=== PATIENT | male | born 1960 | race Caucasian/White ===

== ENCOUNTER 2021-06-29 18:09 | Inpatient (IN) | payer SELFPAY ==
[~2021-06-29] VITALS: Ht 180.3 cm; Wt 77.2 kg
[2021-06-29 18:40] LABS: BASE EXCESS ABG -2 mmol/L (-3-3); HCO3 ABG 20 mmol/L (21-28); PCO2 ABG 30 mmHg (35-46); PO2 ABG 61 mmHg (65-108); SAT O2 ABG 91 % (92-99)
[2021-06-29 18:46] LABS: FIO2 ABG 24%/ 1L NC
--- NOTE | 2021-06-29 18:54 | PHYS DOC ---
Past Medical History Additional Past Medical Histor: DENIES Past Surgical History: No Surgical History Smoking Status: Never Smoker Alcohol Use: None Drug Use: None General Adult HPI: HPI: Patient is a 60-year-old male that presents today via [facility] with decreased level of consciousness. Most of the history was obtained via EMS and patient's friend Reese [phone], who states that patient has been sick since about June 22 per Reese, he states that they both had cough cold headache sinus type pain. Per Reese's report patient is okay during the day and very alert and orientated and at night he has a decreased alertness. Patient is unable to help with exam when asked questions he does deny any past medical history, surgeries, or any other health conditions. Reese who is his roommate collaborates any information gotten from the patient. Accu-Chek per EMS was 250, room air sat in the room was 88 to 90%. Review of Systems: Review of Systems: Constitutional: Denies fever or chills. [] Eyes: Denies change in visual acuity. [] HENT: Denies nasal congestion or sore throat. [] Respiratory: Denies cough or shortness of breath. [] Cardiovascular: Denies chest pain or edema. [] GI: Denies abdominal pain, nausea, vomiting, bloody stools or diarrhea. [] : Denies dysuria. [] Musculoskeletal: Denies back pain or joint pain. [] Integument: Denies rash. [] Neurologic: Decreased LOC Endocrine: Denies polyuria or polydipsia. [] Lymphatic: Denies swollen glands. [] Psychiatric: Denies depression or anxiety. [] Heart Score: C/O Chest Pain: N/A Risk Factors: Risk Factors: DM, Current or recent (<one month) smoker, HTN, HLP, family history of CAD, obesity. Risk Scores: Score 0 - 3: 2.5% MACE over next 6 weeks - Discharge Home Score 4 - 6: 20.3% MACE over next 6 weeks - Admit for Clinical Observation Score 7 - 10: 72.7% MACE over next 6 weeks - Early Invasive Strategies Allergies: Allergies: nkda Physical Exam: PE: Constitutional: Ill-appearing male in moderate distress HENT: Normocephalic, atraumatic, bilateral external ears normal, oropharynx moist, no oral exudates, nose normal. [] Eyes: PERRLA, EOMI, conjunctiva normal, no discharge. [] Neck: Normal range of motion, no tenderness, supple, no stridor. [] Cardiovascular:Heart rate regular rhythm, no murmur [] Lungs & Thorax: Bilateral breath sounds diminished, tachypnea noted increased work of breathing noted Abdomen: Bowel sounds normal, soft, no tenderness, no masses, no pulsatile masses. [] Skin: Warm, dry, pale, no erythema, no rash. [] Back: No tenderness, no CVA tenderness. [] Extremities: No tenderness, no cyanosis, no clubbing, ROM intact, no edema. [] Neurologic: Alert and oriented X 2, normal motor function, normal sensory function, no focal deficits noted. [] Psychologic: Affect normal, judgement normal, mood normal. [] Current Patient Data: Labs: Laboratory Tests Test 06/29/21 18:29 06/29/21 18:39 06/29/21 18:56 06/29/21 19:11 SARS-CoV-2 Antigen (Rapid) Negative O2 Saturation 91 % Arterial Blood pH 7.45 Arterial Blood pCO2 at Patient Temp 30 mmHg Arterial Blood pO2 at Patient Temp 61 mmHg Arterial Blood HCO3 20 mmol/L Arterial Blood Base Excess -2 mmol/L FiO2 24%/ 1l nc Influenza Type A Antigen Negative Influenza Type B Antigen Negative White Blood Count 18.4 x10^3/uL Red Blood Count 5.31 x10^6/uL Hemoglobin 16.4 g/dL Hematocrit 48.1 % Mean Corpuscular Volume 91 fL Mean Corpuscular Hemoglobin 31 pg Mean Corpuscular Hemoglobin Concent 34 g/dL Red Cell Distribution Width 13.2 % Platelet Count 298 x10^3/uL Neutrophils (%) (Auto) 91 % Lymphocytes (%) (Auto) 3 % Monocytes (%) (Auto) 5 % Eosinophils (%) (Auto) 0 % Basophils (%) (Auto) 1 % Neutrophils # (Auto) 16.7 x10^3/uL Lymphocytes # (Auto) 0.6 x10^3/uL Monocytes # (Auto) 1.0 x10^3/uL Eosinophils # (Auto) 0.0 x10^3/uL Basophils # (Auto) 0.1 x10^3/uL D-Dimer (Puja) 8.66 ug/mlFEU Sodium Level 136 mmol/L Potassium Level 5.1 mmol/L Chloride Level 103 mmol/L Carbon Dioxide Level 21 mmol/L Anion Gap 12 Blood Urea Nitrogen 78 mg/dL Creatinine 1.9 mg/dL Estimated GFR (Cockcroft-Gault) 36.2 BUN/Creatinine Ratio 41 Glucose Level 192 mg/dL Lactic Acid Level 2.6 mmol/L Calcium Level 7.7 mg/dL Total Bilirubin 0.8 mg/dL Aspartate Amino Transf (AST/SGOT) 712 U/L Alanine Aminotransferase (ALT/SGPT) 398 U/L Alkaline Phosphatase 67 U/L Troponin I High Sensitivity 13 ng/L Total Protein 7.6 g/dL Albumin 2.7 g/dL Albumin/Globulin Ratio 0.6 Current Medications Medications (Trade) Dose Ordered Sig/Vicente Route PRN Reason Start Time Stop Time Status Last Admin Dose Admin Sodium Chloride 1,000 ml @ 999 mls/hr 1X ONCE IV 06/29/21 19:00 06/29/21 20:00 DC 06/29/21 19:10 Dexamethasone Sodium Phosphate (Decadron) 10 mg 1X ONCE IV 06/29/21 20:00 06/29/21 20:05 DC Sodium Chloride 1,000 ml @ 999 mls/hr 1X ONCE IV 06/29/21 20:00 06/29/21 21:00 Ceftriaxone Sodium (Rocephin) 1 gm 1X ONCE IVP 06/29/21 20:00 06/29/21 20:05 DC Azithromycin 250 ml @ 250 mls/hr 1X ONCE IV 06/29/21 20:00 06/29/21 20:59 Vital Signs: Vital Signs Date Time Temp Pulse Resp B/P (MAP) Pulse Ox O2 Delivery O2 Flow Rate FiO2 06/29/21 18:56 110 29 133/83 (100) 92 Nasal Cannula 2.0 06/29/21 18:53 108 30 127/84 (98) 92 Nasal Cannula 2.0 06/29/21 18:26 110 32 140/77 (98) 94 Nasal Cannula 2.0 06/29/21 18:15 112 32 141/81 (101) 96 Nasal Cannula 5.0 06/29/21 18:09 99.1 112 32 141/81 (101) 92 Nasal Cannula 2.0 99.1 EKG: EKG: EKG done at [address] Rivas at 1827 sinus tachycardia rate of 113 no STEMI NE interval of 100 and TT milliseconds with a QT interval of 438 ms [] Radiology/Procedures: Radiology/Procedures: REASON: DECREASE O2 SATS PROCEDURE: CHEST AP ONLY XR CHEST 1V History: Reason: DECREASE O2 SATS / Spl. Instructions: / History: Comparison: None. Findings: Moderate multifocal ill-defined consolidations bilaterally. No pleural effusion. Low lung volumes. No pneumothorax. Normal heart size. Impression: 1. Moderate multifocal ill-defined opacities bilaterally, can be seen with concerning for pneumonia including viral pneumonia. Electronically signed by: Irvin Clark DO (06/29/2021 8:03 PM) [facility] REASON: DECREASE loc PROCEDURE: CT HEAD WO CONTRAST Exam: CT head INDICATION: Decreased level of consciousness TECHNIQUE: Sequential axial images through the head were obtained without the administration of IV contrast. Exposure: One or more of the following in the visualized dose reduction techniques were utilized for this examination: 1. Automated exposure control 2. Adjustment of the MA and/or KV according to patient size 3. Use of iterative of reconstructive technique Comparisons: None FINDINGS: No focal parenchymal lesion or hemorrhage is identified. There is no midline shift or sulcal effacement. No acute vascular territory infarction is identified. Ceballos-white distinction is preserved. The ventricular system is within normal limits without compression hydrocephalus. The basal cisterns are well maintained. The visualized portions of the paranasal sinuses and mastoid air cells are well- pneumatized. No acute fractures. IMPRESSION: No acute intracranial abnormality. Electronically signed by: Deborah Broderick MD (06/29/2021 8:18 PM) [facility] Course & Med Decision Making: Course & Med Decision Making Laboratory Tests Test 06/29/21 18:29 06/29/21 18:39 06/29/21 18:56 06/29/21 19:11 SARS-CoV-2 Antigen (Rapid) Negative O2 Saturation 91 % Arterial Blood pH 7.45 Arterial Blood pCO2 at Patient Temp 30 mmHg Arterial Blood pO2 at Patient Temp 61 mmHg Arterial Blood HCO3 20 mmol/L Arterial Blood Base Excess -2 mmol/L FiO2 24%/ 1l nc Influenza Type A Antigen Negative Influenza Type B Antigen Negative White Blood Count 18.4 x10^3/uL Red Blood Count 5.31 x10^6/uL Hemoglobin 16.4 g/dL Hematocrit 48.1 % Mean Corpuscular Volume 91 fL Mean Corpuscular Hemoglobin 31 pg Mean Corpuscular Hemoglobin Concent 34 g/dL Red Cell Distribution Width 13.2 % Platelet Count 298 x10^3/uL Neutrophils (%) (Auto) 91 % Lymphocytes (%) (Auto) 3 % Monocytes (%) (Auto) 5 % Eosinophils (%) (Auto) 0 % Basophils (%) (Auto) 1 % Neutrophils # (Auto) 16.7 x10^3/uL Lymphocytes # (Auto) 0.6 x10^3/uL Monocytes # (Auto) 1.0 x10^3/uL Eosinophils # (Auto) 0.0 x10^3/uL Basophils # (Auto) 0.1 x10^3/uL D-Dimer (Puja) 8.66 ug/mlFEU Sodium Level 136 mmol/L Potassium Level 5.1 mmol/L Chloride Level 103 mmol/L Carbon Dioxide Level 21 mmol/L Anion Gap 12 Blood Urea Nitrogen 78 mg/dL Creatinine 1.9 mg/dL Estimated GFR (Cockcroft-Gault) 36.2 BUN/Creatinine Ratio 41 Glucose Level 192 mg/dL Lactic Acid Level 2.6 mmol/L Calcium Level 7.7 mg/dL Total Bilirubin 0.8 mg/dL Aspartate Amino Transf (AST/SGOT) 712 U/L Alanine Aminotransferase (ALT/SGPT) 398 U/L Alkaline Phosphatase 67 U/L Troponin I High Sensitivity 13 ng/L Total Protein 7.6 g/dL Albumin 2.7 g/dL Albumin/Globulin Ratio 0.6 Current Medications Medications (Trade) Dose Ordered Sig/Vicente Route PRN Reason Start Time Stop Time Status Last Admin Dose Admin Sodium Chloride 1,000 ml @ 999 mls/hr 1X ONCE IV 06/29/21 19:00 06/29/21 20:00 DC 06/29/21 19:10 Dexamethasone Sodium Phosphate (Decadron) 10 mg 1X ONCE IV 06/29/21 20:00 06/29/21 20:05 DC Sodium Chloride 1,000 ml @ 999 mls/hr 1X ONCE IV 06/29/21 20:00 06/29/21 21:00 Ceftriaxone Sodium (Rocephin) 1 gm 1X ONCE IVP 06/29/21 20:00 06/29/21 20:05 DC Azithromycin 250 ml @ 250 mls/hr 1X ONCE IV 06/29/21 20:00 06/29/21 20:59 Pertinent Labs and Imaging studies reviewed. (See chart for details) [address] Thornton regarding admitting patient he is agreeable to admission, will continue with IV boluses of fluids down here, repeat labs in the a.m., IV fluids maintenance at 75 an hour of normal saline, and venous Doppler bilaterally to rule out DVTs, will also repeat troponin III hours from the last troponin. Dragon Disclaimer: Dragon Disclaimer: This electronic medical record was generated, in whole or in part, using a voice recognition dictation system. Departure Departure Impression: Primary Impression: Mental status alteration Qualified Codes: R41.82 - Altered mental status, unspecified Additional Impressions: Pneumonia Qualified Codes: J18.9 - Pneumonia, unspecified organism Dehydration Disposition: ADMITTED INPATIENT Admitting Physician: REX Condition: GUARDED Date and Time of Reassessment Date: Jun 29, 2021 Time: 20:29 Fluid Challenge Is the fluid challenge complet: No IBW Target Volume Used: Yes BMI > 30: Yes Blood Culture TIme: 19:11 Time Antibiotics Given: 20:30 Vital Signs Vital Signs: Vital Signs Date Time Temp Pulse Resp B/P (MAP) Pulse Ox O2 Delivery O2 Flow Rate FiO2 06/29/21 18:56 110 29 133/83 (100) 92 Nasal Cannula 2.0 06/29/21 18:09 99.1 99.1 Temperature Source: Axillary Respirations Respiratory Effort: Labored Cardiovascular Pulse Rhythm: Regular Heart: Nml S1, S2, no murmurs Lung Sounds Breath Sounds: Diminished Capillary Refil Capillary Refill: Rt Hand > 3 seconds Peripheral Pulse Pulse Location: Monitor Pulse Strength: Weak (1+) Pulse Assessment Method: Monitor Integumentary Skin Moisture: Dry RANDI DANIEL APRN Jun 29, 2021 18:54
[2021-06-29] MEDS ORDERED: IV NORMAL SALINE 1000ML BAG 1,000 ML IV ONE ×2 (19:00→20:00)
--- NOTE | 2021-06-29 19:09 | EKG ---
[facility] [address] [place] [address] Test Date: 2021-06-29 Test Time: 18:22:57 Pat Name: PRINCESS MILLER Department: Room: Gender: Trial Paralegal: : 1960 Requested By: RANDI DAINEL Order Number: [id number] Reading MD: Champ Argueta Measurements Intervals Bay Rate: 113 P: 41 RI: 118 QRS: -25 QRSD: 76 T: 58 QT: 320 QTc: 438 Interpretive Statements SINUS TACHYCARDIA LEFTWARD AXIS LEFT VENTRICULAR HYPERTROPHY Electronically Signed On 06-30-2021 14:29:22 COMMUNITY DEVELOPMENT SPECIALIST by Champ Argueta
[2021-06-29 19:34] LABS: CALCIUM 7.7 mg/dL (8.5-10.1); CREATININE 1.9 mg/dL (0.7-1.3); GFR 36.2; POTASSIUM 5.1 mmol/L (3.5-5.1)
[2021-06-29 19:39] LABS: INFLUENZA A PATIENT NEGATIVE (NEGATIVE); INFLUENZA B PATIENT NEGATIVE (NEGATIVE)
[2021-06-29 19:40] LABS: ALBUMIN 2.7 g/dL (3.4-5.0); ALBUMIN/GLOBULIN RATIO 0.6 (1.0-1.7); TOTAL BILIRUBIN 0.8 mg/dL (0.2-1.0); TOTAL PROTEIN 7.6 g/dL (6.4-8.2)
[2021-06-29 19:52] LABS: BASO # 0.1 x10^3/uL (0.0-0.2); BASO % 1 % (0-3); EOS % 0 % (0-3); HEMATOCRIT 48.1 % (39.0-53.0); HEMOGLOBIN 16.4 g/dL (13.0-17.5); LYMPH # 0.6 x10^3/uL (1.0-4.8); LYMPH % 3 % (24-48); MEAN CORPUSCULAR HEMOGLOBIN 31 pg (25-35); MEAN CORPUSCULAR HGB CONC 34 g/dL (31-37); MEAN CORPUSCULAR VOLUME 91 fL (79-100); MONO % 5 % (0-9); NEUT # 16.7 x10^3/uL (1.8-7.7); NEUT % 91 % (31-73); PLATELET COUNT 298 x10^3/uL (140-400); RED BLOOD COUNT 5.31 x10^6/uL (4.30-5.70); RED CELL DISTRIBUTION WIDTH 13.2 % (11.5-14.5); WHITE BLOOD COUNT 18.4 x10^3/uL (4.0-11.0)
[2021-06-29] MEDS ORDERED: AZITHRMYCN 500MG IVPB FOR OMNI 250 ML IV ONE (20:00)
[2021-06-29] MEDS ORDERED: DEXAMETHASONE SOD PHOS 20 MG/5 ML VIAL. IV ONE (20:00)
[2021-06-29] MEDS ORDERED: cefTRIAXone IV Push 1 GM VIAL. IVP ONE (20:00)
--- NOTE | 2021-06-29 20:05 | RAD ---
XR CHEST 1V History: Reason: DECREASE O2 SATS / Spl. Instructions: / History: Comparison: None. Findings: Moderate multifocal ill-defined consolidations bilaterally. No pleural effusion. Low lung volumes. No pneumothorax. Normal heart size. Impression: 1. Moderate multifocal ill-defined opacities bilaterally, can be seen with concerning for pneumonia including viral pneumonia. Electronically signed by: Irvin Clark DO (06/29/2021 8:03 PM) [facility]
--- NOTE | 2021-06-29 20:21 | RAD ---
Exam: CT head INDICATION: Decreased level of consciousness TECHNIQUE: Sequential axial images through the head were obtained without the administration of IV co ntrast. Exposure: One or more of the following in the visualized dose reduction techniques were utilized for this examination: 1. Automated exposure control 2. Adjustment of the MA and/or KV according to patient size 3. Use of iterative of reconstructive technique Comparisons: None FINDINGS: No focal parenchymal lesion or hemorrhage is identified. There is no midline shift or sulcal effaceme nt. No acute vascular territory infarction is identified. Ceballos-white distinction is preserved. The ventricular system is within normal limits without compression hydrocephalus. The basal cisterns are well maintained. The visualized portions of the paranasal sinuses and mastoid air cells are well-pneumatized. No acute fractures. IMPRESSION: No acute intracranial abnormality. Electronically signed by: Deborah Broderick MD (06/29/2021 8:18 PM) [facility]
[2021-06-29] MEDS: IV NORMAL SALINE 1000ML BAG 1,000 ML IV SCH (20:45)
--- NOTE | 2021-06-29 22:09 | RAD ---
STUDY: US DPLX VENOUS EXTREMITY LOWER RT INDICATION: Elevated d-dimer. DVT. TECHNIQUE: Color-flow and pulsed wave duplex ultrasound with compression of venous structures of the right lower extremity. COMPARISON: None Available FINDINGS: Duplex ultrasound with compression of the deep venous structures of the right lower extremity from th e common femoral vein through the popliteal vein is negative for DVT. The posterior tibial and peroneal veins are segmentally visualized and patent where seen. Normal veno us waveforms and augmentation are noted throughout. IMPRESSION: No deep venous thrombosis identified throughout the right lower extremity. Electronically signed by: DORINA MAC MD (06/29/2021 10:07 PM) [facility]
[2021-06-30] VITALS (7 sets, daily range): BP systolic 127–147; BP diastolic 67–82
--- NOTE | 2021-06-30 00:20 | NUR ---
The patient, PRINCESS MILLER, 60 y/o, M admitted by SIMONE ARGUELLO MD, was given written information regarding hospital policies, unit procedures and contact persons. pt has wounds on left second toe, buttucks, tip of penis and shaft of penis. Pt is incontinet. ocasionally will nod his head yes or no. He also doesnt acknowledge most questions. but his eyes are open. Valuables were checked and there isnt any valuables. pt didnt answer his contact used Don's info. until pt says otherwise. lcrn
[2021-06-30 05:25] LABS: BASO % 0 % (0-3); EOS % 0 % (0-3); HEMATOCRIT 43.5 % (39.0-53.0); HEMOGLOBIN 14.5 g/dL (13.0-17.5); LYMPH # 0.9 x10^3/uL (1.0-4.8); LYMPH % 7 % (24-48); MEAN CORPUSCULAR HEMOGLOBIN 30 pg (25-35); MEAN CORPUSCULAR HGB CONC 33 g/dL (31-37); MEAN CORPUSCULAR VOLUME 91 fL (79-100); MONO # 0.3 x10^3/uL (0.0-1.1); MONO % 2 % (0-9); NEUT # 12.9 x10^3/uL (1.8-7.7); NEUT % 91 % (31-73); PLATELET COUNT 249 x10^3/uL (140-400); RED BLOOD COUNT 4.77 x10^6/uL (4.30-5.70); RED CELL DISTRIBUTION WIDTH 12.9 % (11.5-14.5); WHITE BLOOD COUNT 14.1 x10^3/uL (4.0-11.0)
--- NOTE | 2021-06-30 05:33 | RAD ---
Examination: LEFT LOWER EXTREMITY - UNILATERAL VENOUS DOPPLER Technique: Ultrasound evaluation of the left lower extremity was performed from the groin to the uppe r calf with churchill scale, spectral and color doppler evaluation. Indication: Leg swelling Comparison: None Findings: There is normal venous flow and compressibility of left common femoral vein, femoral vein, popliteal vein, and visualized proximal calf veins. Impression: No evidence for deep vein thrombosis of left lower extremity from the level of the calf v eins to the groins. Electronically signed by: Enrique Walker MD (06/30/2021 5:31 AM) [facility]
[2021-06-30 05:50] LABS: CALCIUM 7.3 mg/dL (8.5-10.1); CREATININE 1.3 mg/dL (0.7-1.3); GFR 56.1; POTASSIUM 5.1 mmol/L (3.5-5.1)
[2021-06-30 10:13] LABS: % BANDS 1 % (0-9); % LYMPHS 4 % (24-48); % MONOS 1 % (0-10); % SEGS 94 % (35-66); PLT ESTIMATE ADEQUATE (ADEQUATE)
--- NOTE | 2021-06-30 12:31 | NUR ---
SS following for discharge planning. SS reviewed pt chart and discussed with pt RN. Pt is from home and is currently requiring oxygen at four liters nasal canula. COVID19 positive. [address] ordered. Self pay. Med Assist following. SS will continue to follow for discharge planning.
[2021-06-30] MEDS: IV NORMAL SALINE 1000ML BAG 1,000 ML IV SCH (12:32)
--- NOTE | 2021-06-30 15:14 | PDOC1 ---
History and Physical Date of Service: DOS: DATE: 06/30/21 TIME: 15:07 Chief Complaint: Chief Complain: Altered mental status. History of Present Illness: HPI: 60-year-old male that presents today via [facility] with decreased level of consciousness. Most of the history was obtained via EMS and patient's friend Reese [phone], who states that patient has been sick since about June 22 per Reese, he states that they both had cough cold headache sinus type pain. Per Reese's report patient is okay during the day and very alert and orientated and at night he has a decreased alertness. Patient is unable to help with exam when asked questions he does deny any past medical history, surgeries, or any other health conditions. Reese who is his roommate collaborates any i nformation gotten from the patient. Accu-Chek per EMS was 250, room air sat in the room was 88 to 90%. EKG at time of admission: sinus tachycardia rate of 113 no STEMI NE interval of 100 and TT milliseconds with a QT interval of 438 ms Past Medical/Surgical History: PMH/PSH: Additional Past Medical Histor: DENIES Past Surgical History: No Surgical History Allergies: Allergies: Coded Allergies: Unable to Assess (Unverified , 06/29/21) PATIENT UNRESPONSIVE Family History: Family History: Reviewed with no relevant findings in the chart Social History: Social History: Smoking Status: Never Smoker Alcohol Use: None Drug Use: None Current Medications: Current Medications Current Medications Sodium Chloride 1,000 ml @ 999 mls/hr 1X ONCE IV Last administered on 06/29/21at 19:10; Start 06/29/21 at 19:00; Stop 06/29/21 at 20:00; Status DC Dexamethasone Sodium Phosphate (Decadron) 10 mg 1X ONCE IV Last administered on 06/29/21at 20:30; Start 06/29/21 at 20:00; Stop 06/29/21 at 20:05; Status DC Sodium Chloride 1,000 ml @ 999 mls/hr 1X ONCE IV Last administered on 06/29/21at 20:30; Start 06/29/21 at 20:00; Stop 06/29/21 at 21:00; Status DC Ceftriaxone Sodium (Rocephin) 1 gm 1X ONCE IVP Last administered on 06/29/21at 20:29; Start 06/29/21 at 20:00; Stop 06/29/21 at 20:05; Status DC Azithromycin 250 ml @ 250 mls/hr 1X ONCE IV Last administered on 06/29/21at 20:00; Start 06/29/21 at 20:00; Stop 06/29/21 at 20:59; Status DC Sodium Chloride 1,000 ml @ 75 mls/hr [id number] IV Last administered on 06/30/21at 12:32; Start 06/29/21 at 20:45; Stop 06/30/21 at 20:44 Info (FLU VACCINE SCREEN per RX) 0.5 each 1X ONCE [facility] ; Start 07/01/21 at 09:00; Stop 07/01/21 at 09:01 Active Scripts Active No Active Prescriptions or Reported Medications ROS: Review of Systems Review of System Limited due to altered mental status Physical Exam: Vital Signs: Vital Signs Date Time Temp Pulse Resp B/P (MAP) Pulse Ox O2 Delivery O2 Flow Rate FiO2 06/30/21 11:30 98.3 79 25 136/79 (98) 94 Nasal Cannula 4.0 98.3 Physcial Exam: General: Well developed, well nourished, no acute distress, well appearing HEENT: Pupils equally round and reactive to light, EOMI, no discharge, normal conjunctiva Neck: Supple, no nuchal rigidity, no JVD, trachea midline, no tenderness Cardiac: RRR, no murmurs, no gallops, no rubs Chest/Lungs: CTAB, no wheeze, no rhonchi, no crackles Abdomen: soft, non-distended, no guarding, no peritoneal signs, non-tender Back: No tenderness Extremities: no edema, pulses intact, non-tender,capillary refill <3 sec bilateral upper and lower extremities, Neuro: Alert and oriented x 4, no focal deficits, normal speech Labs: Labs: Laboratory Tests Test 06/29/21 18:29 06/29/21 18:39 06/29/21 18:56 06/29/21 19:11 SARS-CoV-2 Antigen (Rapid) Negative (NEGATIVE) O2 Saturation 91 % (92-99) Arterial Blood pH 7.45 (7.35-7.45) Arterial Blood pCO2 at Patient Temp 30 mmHg (35-46) Arterial Blood pO2 at Patient Temp 61 mmHg (65-108) Arterial Blood HCO3 20 mmol/L (21-28) Arterial Blood Base Excess -2 mmol/L (-3-3) FiO2 24%/ 1l nc Influenza Type A Antigen Negative (NEGATIVE) Influenza Type B Antigen Negative (NEGATIVE) SARS-CoV-2 RNA (ABDIEL) Positive (Negative) White Blood Count 18.4 x10^3/uL (4.0-11.0) Red Blood Count 5.31 x10^6/uL (4.30-5.70) Hemoglobin 16.4 g/dL (13.0-17.5) Hematocrit 48.1 % (39.0-53.0) Mean Corpuscular Volume 91 fL (79-100) Mean Corpuscular Hemoglobin 31 pg (25-35) Mean Corpuscular Hemoglobin Concent 34 g/dL (31-37) Red Cell Distribution Width 13.2 % (11.5-14.5) Platelet Count 298 x10^3/uL (140-400) Neutrophils (%) (Auto) 91 % (31-73) Lymphocytes (%) (Auto) 3 % (24-48) Monocytes (%) (Auto) 5 % (0-9) Eosinophils (%) (Auto) 0 % (0-3) Basophils (%) (Auto) 1 % (0-3) Neutrophils # (Auto) 16.7 x10^3/uL (1.8-7.7) Lymphocytes # (Auto) 0.6 x10^3/uL (1.0-4.8) Monocytes # (Auto) 1.0 x10^3/uL (0.0-1.1) Eosinophils # (Auto) 0.0 x10^3/uL (0.0-0.7) Basophils # (Auto) 0.1 x10^3/uL (0.0-0.2) D-Dimer (Puja) 8.66 ug/mlFEU (0.00-0.50) Sodium Level 136 mmol/L (136-145) Potassium Level 5.1 mmol/L (3.5-5.1) Chloride Level 103 mmol/L (98-107) Carbon Dioxide Level 21 mmol/L (21-32) Anion Gap 12 (6-14) Blood Urea Nitrogen 78 mg/dL (8-26) Creatinine 1.9 mg/dL (0.7-1.3) Estimated GFR (Cockcroft-Gault) 36.2 BUN/Creatinine Ratio 41 (6-20) Glucose Level 192 mg/dL (70-99) Lactic Acid Level 2.6 mmol/L (0.4-2.0) Calcium Level 7.7 mg/dL (8.5-10.1) Total Bilirubin 0.8 mg/dL (0.2-1.0) Aspartate Amino Transf (AST/SGOT) 712 U/L (15-37) Alanine Aminotransferase (ALT/SGPT) 398 U/L (16-63) Alkaline Phosphatase 67 U/L (46-116) Troponin I High Sensitivity 13 ng/L (4-75) Total Protein 7.6 g/dL (6.4-8.2) Albumin 2.7 g/dL (3.4-5.0) Albumin/Globulin Ratio 0.6 (1.0-1.7) Test 06/30/21 04:30 White Blood Count 14.1 x10^3/uL (4.0-11.0) Red Blood Count 4.77 x10^6/uL (4.30-5.70) Hemoglobin 14.5 g/dL (13.0-17.5) Hematocrit 43.5 % (39.0-53.0) Mean Corpuscular Volume 91 fL (79-100) Mean Corpuscular Hemoglobin 30 pg (25-35) Mean Corpuscular Hemoglobin Concent 33 g/dL (31-37) Red Cell Distribution Width 12.9 % (11.5-14.5) Platelet Count 249 x10^3/uL (140-400) Neutrophils (%) (Auto) 91 % (31-73) Lymphocytes (%) (Auto) 7 % (24-48) Monocytes (%) (Auto) 2 % (0-9) Eosinophils (%) (Auto) 0 % (0-3) Basophils (%) (Auto) 0 % (0-3) Neutrophils # (Auto) 12.9 x10^3/uL (1.8-7.7) Lymphocytes # (Auto) 0.9 x10^3/uL (1.0-4.8) Monocytes # (Auto) 0.3 x10^3/uL (0.0-1.1) Eosinophils # (Auto) 0.0 x10^3/uL (0.0-0.7) Basophils # (Auto) 0.0 x10^3/uL (0.0-0.2) Segmented Neutrophils % 94 % (35-66) Band Neutrophils % 1 % (0-9) Lymphocytes % 4 % (24-48) Monocytes % 1 % (0-10) Platelet Estimate Adequate (ADEQUATE) Sodium Level 143 mmol/L (136-145) Potassium Level 5.1 mmol/L (3.5-5.1) Chloride Level 110 mmol/L (98-107) Carbon Dioxide Level 22 mmol/L (21-32) Anion Gap 11 (6-14) Blood Urea Nitrogen 53 mg/dL (8-26) Creatinine 1.3 mg/dL (0.7-1.3) Estimated GFR (Cockcroft-Gault) 56.1 Glucose Level 125 mg/dL (70-99) Lactic Acid Level 2.0 mmol/L (0.4-2.0) Calcium Level 7.3 mg/dL (8.5-10.1) Troponin I High Sensitivity 17 ng/L (4-75) Laboratory Tests Test 06/29/21 18:29 06/29/21 18:39 06/29/21 18:56 06/29/21 19:11 SARS-CoV-2 Antigen (Rapid) Negative (NEGATIVE) O2 Saturation 91 % (92-99) Arterial Blood pH 7.45 (7.35-7.45) Arterial Blood pCO2 at Patient Temp 30 mmHg (35-46) Arterial Blood pO2 at Patient Temp 61 mmHg (65-108) Arterial Blood HCO3 20 mmol/L (21-28) Arterial Blood Base Excess -2 mmol/L (-3-3) FiO2 24%/ 1l nc Influenza Type A Antigen Negative (NEGATIVE) Influenza Type B Antigen Negative (NEGATIVE) SARS-CoV-2 RNA (ABDIEL) Positive (Negative) White Blood Count 18.4 x10^3/uL (4.0-11.0) Red Blood Count 5.31 x10^6/uL (4.30-5.70) Hemoglobin 16.4 g/dL (13.0-17.5) Hematocrit 48.1 % (39.0-53.0) Mean Corpuscular Volume 91 fL (79-100) Mean Corpuscular Hemoglobin 31 pg (25-35) Mean Corpuscular Hemoglobin Concent 34 g/dL (31-37) Red Cell Distribution Width 13.2 % (11.5-14.5) Platelet Count 298 x10^3/uL (140-400) Neutrophils (%) (Auto) 91 % (31-73) Lymphocytes (%) (Auto) 3 % (24-48) Monocytes (%) (Auto) 5 % (0-9) Eosinophils (%) (Auto) 0 % (0-3) Basophils (%) (Auto) 1 % (0-3) Neutrophils # (Auto) 16.7 x10^3/uL (1.8-7.7) Lymphocytes # (Auto) 0.6 x10^3/uL (1.0-4.8) Monocytes # (Auto) 1.0 x10^3/uL (0.0-1.1) Eosinophils # (Auto) 0.0 x10^3/uL (0.0-0.7) Basophils # (Auto) 0.1 x10^3/uL (0.0-0.2) D-Dimer (Puja) 8.66 ug/mlFEU (0.00-0.50) Sodium Level 136 mmol/L (136-145) Potassium Level 5.1 mmol/L (3.5-5.1) Chloride Level 103 mmol/L (98-107) Carbon Dioxide Level 21 mmol/L (21-32) Anion Gap 12 (6-14) Blood Urea Nitrogen 78 mg/dL (8-26) Creatinine 1.9 mg/dL (0.7-1.3) Estimated GFR (Cockcroft-Gault) 36.2 BUN/Creatinine Ratio 41 (6-20) Glucose Level 192 mg/dL (70-99) Lactic Acid Level 2.6 mmol/L (0.4-2.0) Calcium Level 7.7 mg/dL (8.5-10.1) Total Bilirubin 0.8 mg/dL (0.2-1.0) Aspartate Amino Transf (AST/SGOT) 712 U/L (15-37) Alanine Aminotransferase (ALT/SGPT) 398 U/L (16-63) Alkaline Phosphatase 67 U/L (46-116) Troponin I High Sensitivity 13 ng/L (4-75) Total Protein 7.6 g/dL (6.4-8.2) Albumin 2.7 g/dL (3.4-5.0) Albumin/Globulin Ratio 0.6 (1.0-1.7) Test 06/30/21 04:30 White Blood Count 14.1 x10^3/uL (4.0-11.0) Red Blood Count 4.77 x10^6/uL (4.30-5.70) Hemoglobin 14.5 g/dL (13.0-17.5) Hematocrit 43.5 % (39.0-53.0) Mean Corpuscular Volume 91 fL (79-100) Mean Corpuscular Hemoglobin 30 pg (25-35) Mean Corpuscular Hemoglobin Concent 33 g/dL (31-37) Red Cell Distribution Width 12.9 % (11.5-14.5) Platelet Count 249 x10^3/uL (140-400) Neutrophils (%) (Auto) 91 % (31-73) Lymphocytes (%) (Auto) 7 % (24-48) Monocytes (%) (Auto) 2 % (0-9) Eosinophils (%) (Auto) 0 % (0-3) Basophils (%) (Auto) 0 % (0-3) Neutrophils # (Auto) 12.9 x10^3/uL (1.8-7.7) Lymphocytes # (Auto) 0.9 x10^3/uL (1.0-4.8) Monocytes # (Auto) 0.3 x10^3/uL (0.0-1.1) Eosinophils # (Auto) 0.0 x10^3/uL (0.0-0.7) Basophils # (Auto) 0.0 x10^3/uL (0.0-0.2) Segmented Neutrophils % 94 % (35-66) Band Neutrophils % 1 % (0-9) Lymphocytes % 4 % (24-48) Monocytes % 1 % (0-10) Platelet Estimate Adequate (ADEQUATE) Sodium Level 143 mmol/L (136-145) Potassium Level 5.1 mmol/L (3.5-5.1) Chloride Level 110 mmol/L (98-107) Carbon Dioxide Level 22 mmol/L (21-32) Anion Gap 11 (6-14) Blood Urea Nitrogen 53 mg/dL (8-26) Creatinine 1.3 mg/dL (0.7-1.3) Estimated GFR (Cockcroft-Gault) 56.1 Glucose Level 125 mg/dL (70-99) Lactic Acid Level 2.0 mmol/L (0.4-2.0) Calcium Level 7.3 mg/dL (8.5-10.1) Troponin I High Sensitivity 17 ng/L (4-75) Images: Images PROCEDURE: CHEST AP ONLY XR CHEST 1V History: Reason: DECREASE O2 SATS / Spl. Instructions: / History: Comparison: None. Findings: Moderate multifocal ill-defined consolidations bilaterally. No pleural effusion. Low lung volumes. No pneumothorax. Normal heart size. Impression: 1. Moderate multifocal ill-defined opacities bilaterally, can be seen with concerning for pneumonia including viral pneumonia. Negative head CT Assessment/Plan Assessment/Plan Acute hypoxic respiratory failure secondary to COVID-19 pneumonia Acute infectious and metabolic encephalopathy IVORY due to vasomotor nephropathyimproved Lactic acidemia Admit to hospitalist service for further management Continue IV thiamine and vitamin C IV dexamethasone daily IV Remdesivir if patient requires O2 supplementation beyond there baseline Pending ferritin, LDH, CRP, D-dimer labs Titrate O2 supplementation to maintain O2 saturation greater than 92% Empiric IV antibiotics if patient has clinical presentation for bacterial pneumonia Lovenox for DVT prophylaxis Protonix GI prophylaxis ADA diet Full code Discussed with RN and SW Disposition inpatient management as above Surrogate decision maker is the undesignated Justifications for Admission Other Justification BRIANA MOHR MD Jun 30, 2021 15:14
[2021-06-30] MEDS ORDERED: diphenhydrAMINE HCL 25 MG CAPSULE PO PRN ×2 (15:15)
[2021-06-30] MEDS ORDERED: DEXTROSE 50% 25 GM / 50ML DISP.SYRIN. IV PRN (15:15)
[2021-06-30] MEDS ORDERED: diphenhydrAMINE 50 MG/ML VIAL IVP PRN (15:15)
[2021-06-30] MEDS ORDERED: PROCHLORPERAZINE 10 MG/2 ML VIAL. IV PRN (15:15)
[2021-06-30] MEDS ORDERED: ZOLPIDEM 5 MG TABLET. PO PRN (15:15)
[2021-06-30] MEDS ORDERED: LORazepam 0.5 MG TABLET PO PRN (15:15)
[2021-06-30] MEDS ORDERED: ACETAMINOPHEN 325 MG TABLET. PO PRN (15:15)
[2021-06-30] MEDS ORDERED: ONDANSETRON PF 4 MG/2 ML VIAL. IVP PRN (15:15)
[2021-06-30] MEDS: THIAMINE 100 MG TABLET. PO SCH (17:02)
[2021-06-30] MEDS: PANTOPRAZOLE IV PUSH 40 MG VIAL. IVP SCH (17:02)
[2021-06-30] MEDS: DEXAMETHASONE SOD PHOS 4 MG/ML VIAL IVP SCH (17:03)
[2021-06-30] MEDS: ENOXAPARIN 40 MG/0.4 ML SYRINGE. SQ SCH (17:03)
[2021-06-30] MEDS: ZINC SULFATE 220 MG CAPSULE. PO SCH (17:03)
[2021-06-30] MEDS: ASCORBIC ACID 1,000 MG TABLET PO SCH (20:58)
[2021-07-01 02:23] VITALS: BP 155/85
[2021-07-01 04:58] LABS: BASO % 0 % (0-3); EOS % 0 % (0-3); HEMATOCRIT 40.8 % (39.0-53.0); LYMPH # 0.8 x10^3/uL (1.0-4.8); LYMPH % 9 % (24-48); MEAN CORPUSCULAR HEMOGLOBIN 32 pg (25-35); MEAN CORPUSCULAR HGB CONC 34 g/dL (31-37); MEAN CORPUSCULAR VOLUME 92 fL (79-100); MONO # 0.6 x10^3/uL (0.0-1.1); MONO % 7 % (0-9); NEUT # 7.8 x10^3/uL (1.8-7.7); NEUT % 84 % (31-73); PLATELET COUNT 237 x10^3/uL (140-400); RED BLOOD COUNT 4.43 x10^6/uL (4.30-5.70); RED CELL DISTRIBUTION WIDTH 13.1 % (11.5-14.5); WHITE BLOOD COUNT 9.2 x10^3/uL (4.0-11.0)
[2021-07-01 05:18] LABS: CALCIUM 7.6 mg/dL (8.5-10.1); CREATININE 0.9 mg/dL (0.7-1.3); GFR 85.8; MAGNESIUM 2.8 mg/dL (1.8-2.4)
[2021-07-01 07:00] VITALS: BP 147/69
[2021-07-01] MEDS ORDERED: INFLUENZA VAX SCREEN BY RX. MC ONE (09:00)
[2021-07-01] MEDS: PANTOPRAZOLE IV PUSH 40 MG VIAL. IVP SCH (09:05)
[2021-07-01] MEDS: ZINC SULFATE 220 MG CAPSULE. PO SCH (09:06)
[2021-07-01] MEDS: ASCORBIC ACID 1,000 MG TABLET PO SCH ×3 (09:06→21:27)
[2021-07-01] MEDS: THIAMINE 100 MG TABLET. PO SCH (09:06)
[2021-07-01] MEDS: DEXAMETHASONE SOD PHOS 4 MG/ML VIAL IVP SCH (09:09)
[2021-07-01 11:00] VITALS: BP 165/81
--- NOTE | 2021-07-01 14:16 | PDOC ---
[employer] PROGRESS NOTE Date of Service DOS: DATE: 07/01/21 TIME: 14:15 Chief Complaint Chief Complaint Assessment/Plan Acute hypoxic respiratory failure secondary to COVID-19 pneumonia Acute infectious and metabolic encephalopathy IVORY due to vasomotor nephropathyimproved Lactic acidemia Continue IV thiamine and vitamin C IV dexamethasone daily IV Remdesivir if patient requires O2 supplementation beyond there baseline Pending ferritin, LDH, CRP, D-dimer labs Titrate O2 supplementation to maintain O2 saturation greater than 92% Empiric IV antibiotics if patient has clinical presentation for bacterial pneumonia Lovenox for DVT prophylaxis Protonix GI prophylaxis ADA diet Full code Discussed with RN and SW Disposition inpatient management as above Surrogate decision maker is the undesignated History of Present Illness History of Present Illness 60-year-old male that presents today via [facility] with decreased level of consciousness. Most of the history was obtained via EMS and patient's friend Reese [phone], who states that patient has been sick since about June 22 per Reese, he states that they both had cough cold headache sinus type pain. Per Reese's report patient is okay during the day and very alert and orientated and at night he has a decreased alertness. Patient is unable to help with exam when asked questions he does deny any past medical history, surgeries, or any other health conditions. Reese who is his roommate collaborates any information gotten from the patient. Accu-Chek per EMS was 250, room air sat in the room was 88 to 90%. 07/01/2021 No acute events overnight. Patient seen examined bedside. Saturating 99% on 4 L nasal cannula. Patient's chart, labs, images were reviewed and discussed with RN Vitals/I&O Vitals/I&O: Vital Signs Date Time Temp Pulse Resp B/P (MAP) Pulse Ox O2 Delivery O2 Flow Rate FiO2 07/01/21 08:05 Nasal Cannula 4.0 07/01/21 07:00 98.7 91 20 147/69 (95) 100 98.7 I & O 06/30/21 06/30/21 07/01/21 15:00 23:00 07:00 Intake Total 120 ml 0 ml Output Total 600 ml Balance 120 ml -600 ml Labs Labs: Laboratory Tests Test 06/30/21 15:35 07/01/21 04:30 D-Dimer (Puja) 8.27 ug/mlFEU (0.00-0.50) C-Reactive Protein, Quantitative 15.0 mg/L (0-3.3) Procalcitonin 0.25 ng/mL (0.00-0.10) White Blood Count 9.2 x10^3/uL (4.0-11.0) Red Blood Count 4.43 x10^6/uL (4.30-5.70) Hemoglobin 14.0 g/dL (13.0-17.5) Hematocrit 40.8 % (39.0-53.0) Mean Corpuscular Volume 92 fL (79-100) Mean Corpuscular Hemoglobin 32 pg (25-35) Mean Corpuscular Hemoglobin Concent 34 g/dL (31-37) Red Cell Distribution Width 13.1 % (11.5-14.5) Platelet Count 237 x10^3/uL (140-400) Neutrophils (%) (Auto) 84 % (31-73) Lymphocytes (%) (Auto) 9 % (24-48) Monocytes (%) (Auto) 7 % (0-9) Eosinophils (%) (Auto) 0 % (0-3) Basophils (%) (Auto) 0 % (0-3) Neutrophils # (Auto) 7.8 x10^3/uL (1.8-7.7) Lymphocytes # (Auto) 0.8 x10^3/uL (1.0-4.8) Monocytes # (Auto) 0.6 x10^3/uL (0.0-1.1) Eosinophils # (Auto) 0.0 x10^3/uL (0.0-0.7) Basophils # (Auto) 0.0 x10^3/uL (0.0-0.2) Sodium Level 147 mmol/L (136-145) Potassium Level 5.0 mmol/L (3.5-5.1) Chloride Level 114 mmol/L (98-107) Carbon Dioxide Level 22 mmol/L (21-32) Anion Gap 11 (6-14) Blood Urea Nitrogen 31 mg/dL (8-26) Creatinine 0.9 mg/dL (0.7-1.3) Estimated GFR (Cockcroft-Gault) 85.8 Glucose Level 102 mg/dL (70-99) Calcium Level 7.6 mg/dL (8.5-10.1) Phosphorus Level 3.0 mg/dL (2.6-4.7) Magnesium Level 2.8 mg/dL (1.8-2.4) Assessment and Plan Assessmemt and Plan Problems Medical Problems: (1) Dehydration Status: Acute (2) Mental status alteration Status: Acute (3) Pneumonia Status: Acute Comment Review of Relevant I have reviewed the following items amanda (where applicable) has been applied. Medications: Current Medications Medications (Trade) Dose Ordered Sig/Vicente Route PRN Reason Start Time Stop Time Status Last Admin Dose Admin Ascorbic Acid (Vitamin C) 3,000 mg TID PO 06/30/21 21:00 07/01/21 09:06 Dexamethasone Sodium Phosphate (Decadron) 6 mg DAILY IVP 06/30/21 16:00 07/11/21 15:59 07/01/21 09:09 Thiamine Mononitrate (Vitamin B-1) 300 mg DAILY PO 06/30/21 16:00 07/01/21 09:06 Zinc Sulfate (Orazinc) 220 mg DAILY PO 06/30/21 16:00 07/01/21 09:06 Enoxaparin Sodium (Lovenox 40mg Syringe) 40 mg Q24H SQ 06/30/21 16:00 06/30/21 17:03 Pantoprazole Sodium (PROTONIX VIAL for IV PUSH) 40 mg DAILYAC IVP 06/30/21 16:00 07/01/21 09:05 Justifications for Admission Other Justification COVID-19 positive test (U07.1, COVID-19) with Acute Pneumonia (J12.89, Other viral pneumonia) (If respiratory failure or sepsis present, add as separate assessment) BRIANA MOHR MD Jul 01, 2021 14:16
[2021-07-01 15:00] VITALS: BP 166/91
[2021-07-01] MEDS: ENOXAPARIN 40 MG/0.4 ML SYRINGE. SQ SCH (17:11)
[2021-07-01 19:00] VITALS: BP 154/89
[2021-07-01 23:03] VITALS: BP 158/90
[2021-07-02 03:02] VITALS: BP 144/81
[2021-07-02 05:09] LABS: BASO % 0 % (0-3); EOS % 0 % (0-3); HEMATOCRIT 44.1 % (39.0-53.0); HEMOGLOBIN 14.3 g/dL (13.0-17.5); LYMPH # 1.1 x10^3/uL (1.0-4.8); LYMPH % 10 % (24-48); MEAN CORPUSCULAR HEMOGLOBIN 30 pg (25-35); MEAN CORPUSCULAR HGB CONC 33 g/dL (31-37); MEAN CORPUSCULAR VOLUME 93 fL (79-100); MONO # 0.9 x10^3/uL (0.0-1.1); MONO % 9 % (0-9); NEUT # 8.5 x10^3/uL (1.8-7.7); NEUT % 81 % (31-73); PLATELET COUNT 235 x10^3/uL (140-400); RED BLOOD COUNT 4.76 x10^6/uL (4.30-5.70); RED CELL DISTRIBUTION WIDTH 13.1 % (11.5-14.5); WHITE BLOOD COUNT 10.5 x10^3/uL (4.0-11.0)
[2021-07-02 05:36] LABS: CALCIUM 7.6 mg/dL (8.5-10.1); CREATININE 0.8 mg/dL (0.7-1.3); GFR 98.3; MAGNESIUM 2.6 mg/dL (1.8-2.4)
[2021-07-02 07:00] VITALS: BP 151/86
[2021-07-02] MEDS: DEXAMETHASONE SOD PHOS 4 MG/ML VIAL IVP SCH (10:11)
[2021-07-02] MEDS: PANTOPRAZOLE IV PUSH 40 MG VIAL. IVP SCH (10:11)
[2021-07-02] MEDS: ZINC SULFATE 220 MG CAPSULE. PO SCH (10:11)
[2021-07-02] MEDS: ASCORBIC ACID 1,000 MG TABLET PO SCH ×3 (10:11→20:58)
[2021-07-02] MEDS: THIAMINE 100 MG TABLET. PO SCH (10:12)
[2021-07-02 11:00] VITALS: BP 143/90
--- NOTE | 2021-07-02 11:35 | PDOC ---
[employer] PROGRESS NOTE Date of Service DOS: DATE: 07/02/21 TIME: 11:34 Chief Complaint Chief Complaint Assessment/Plan Acute hypoxic respiratory failure secondary to COVID-19 pneumonia Acute infectious and metabolic encephalopathy IVORY due to vasomotor nephropathyimproved Lactic acidemia Continue IV thiamine and vitamin C IV dexamethasone daily IV Remdesivir if patient requires O2 supplementation beyond there baseline Pending ferritin, LDH, CRP, D-dimer labs Titrate O2 supplementation to maintain O2 saturation greater than 92% Empiric IV antibiotics if patient has clinical presentation for bacterial pneumonia Lovenox for DVT prophylaxis Protonix GI prophylaxis ADA diet Full code Discussed with RN and SW Disposition inpatient management as above Surrogate decision maker is the undesignated History of Present Illness History of Present Illness 60-year-old male that presents today via [facility] with decreased level of consciousness. Most of the history was obtained via EMS and patient's friend Reese [phone], who states that patient has been sick since about June 22 per Reese, he states that they both had cough cold headache sinus type pain. Per Reese's report patient is okay during the day and very alert and orientated and at night he has a decreased alertness. Patient is unable to help with exam when asked questions he does deny any past medical history, surgeries, or any other health conditions. Reese who is his roommate collaborates any information gotten from the patient. Accu-Chek per EMS was 250, room air sat in the room was 88 to 90%. 07/01/2021 No acute events overnight. Patient seen examined bedside. Saturating 99% on 4 L nasal cannula. Patient's chart, labs, images were reviewed and discussed with RN 07/02/2021 Patient seen examined bedside. Saturating 94% on 4 L nasal cannula. Will continue on half NS at 75 cc/h. Sodium at 145 and potassium of 5.0. Patient is not more short of air than usual. Some confusion as seems to be his baseline. Patient's chart, labs, images were reviewed and discussed with RN Vitals/I&O Vitals/I&O: Vital Signs Date Time Temp Pulse Resp B/P (MAP) Pulse Ox O2 Delivery O2 Flow Rate FiO2 07/02/21 07:00 96.1 73 20 151/86 (107) 96 Nasal Cannula 4.0 96.1 I & O 07/01/21 07/01/21 07/02/21 15:00 23:00 07:00 Intake Total 0 ml 0 ml Output Total 1000 ml Balance 0 ml -1000 ml Physical Exam General: Alert, Cooperative Heart: Regular rate Lungs: Clear Abdomen: Normal bowel sounds Extremities: No clubbing Skin: No rashes Labs Labs: Laboratory Tests Test 07/02/21 04:30 White Blood Count 10.5 x10^3/uL (4.0-11.0) Red Blood Count 4.76 x10^6/uL (4.30-5.70) Hemoglobin 14.3 g/dL (13.0-17.5) Hematocrit 44.1 % (39.0-53.0) Mean Corpuscular Volume 93 fL (79-100) Mean Corpuscular Hemoglobin 30 pg (25-35) Mean Corpuscular Hemoglobin Concent 33 g/dL (31-37) Red Cell Distribution Width 13.1 % (11.5-14.5) Platelet Count 235 x10^3/uL (140-400) Neutrophils (%) (Auto) 81 % (31-73) Lymphocytes (%) (Auto) 10 % (24-48) Monocytes (%) (Auto) 9 % (0-9) Eosinophils (%) (Auto) 0 % (0-3) Basophils (%) (Auto) 0 % (0-3) Neutrophils # (Auto) 8.5 x10^3/uL (1.8-7.7) Lymphocytes # (Auto) 1.1 x10^3/uL (1.0-4.8) Monocytes # (Auto) 0.9 x10^3/uL (0.0-1.1) Eosinophils # (Auto) 0.0 x10^3/uL (0.0-0.7) Basophils # (Auto) 0.0 x10^3/uL (0.0-0.2) Sodium Level 145 mmol/L (136-145) Potassium Level 5.0 mmol/L (3.5-5.1) Chloride Level 112 mmol/L (98-107) Carbon Dioxide Level 23 mmol/L (21-32) Anion Gap 10 (6-14) Blood Urea Nitrogen 27 mg/dL (8-26) Creatinine 0.8 mg/dL (0.7-1.3) Estimated GFR (Cockcroft-Gault) 98.3 Glucose Level 81 mg/dL (70-99) Calcium Level 7.6 mg/dL (8.5-10.1) Magnesium Level 2.6 mg/dL (1.8-2.4) Assessment and Plan Assessmemt and Plan Problems Medical Problems: (1) Dehydration Status: Acute (2) Mental status alteration Status: Acute (3) Pneumonia Status: Acute Comment Review of Relevant I have reviewed the following items amanda (where applicable) has been applied. Justifications for Admission Other Justification COVID-19 positive test (U07.1, COVID-19) with Acute Pneumonia (J12.89, Other viral pneumonia) (If respiratory failure or sepsis present, add as separate assessment) BRIANA MOHR MD Jul 02, 2021 11:35
[2021-07-02 15:00] VITALS: BP 149/81
[2021-07-02] MEDS: ENOXAPARIN 40 MG/0.4 ML SYRINGE. SQ SCH (15:34)
[2021-07-02 19:38] VITALS: BP 138/83
[2021-07-02 23:16] VITALS: BP 146/92
[2021-07-03 03:06] VITALS: BP 148/89
[2021-07-03 05:15] LABS: BASO # 0.1 x10^3/uL (0.0-0.2); BASO % 1 % (0-3); EOS % 0 % (0-3); HEMATOCRIT 50.1 % (39.0-53.0); HEMOGLOBIN 16.4 g/dL (13.0-17.5); LYMPH % 9 % (24-48); MEAN CORPUSCULAR HEMOGLOBIN 31 pg (25-35); MEAN CORPUSCULAR HGB CONC 33 g/dL (31-37); MEAN CORPUSCULAR VOLUME 93 fL (79-100); MONO # 0.7 x10^3/uL (0.0-1.1); MONO % 6 % (0-9); NEUT # 9.9 x10^3/uL (1.8-7.7); NEUT % 85 % (31-73); PLATELET COUNT 262 x10^3/uL (140-400); RED BLOOD COUNT 5.38 x10^6/uL (4.30-5.70); RED CELL DISTRIBUTION WIDTH 13.3 % (11.5-14.5); WHITE BLOOD COUNT 11.7 x10^3/uL (4.0-11.0)
[2021-07-03 05:58] LABS: CREATININE 1.1 mg/dL (0.7-1.3); GFR 68.1; MAGNESIUM 2.4 mg/dL (1.8-2.4); POTASSIUM 4.6 mmol/L (3.5-5.1)
[2021-07-03 07:14] VITALS: BP 140/96
[2021-07-03] MEDS: THIAMINE 100 MG TABLET. PO SCH (09:16)
[2021-07-03] MEDS: ASCORBIC ACID 1,000 MG TABLET PO SCH ×3 (09:16→19:11)
[2021-07-03] MEDS: ZINC SULFATE 220 MG CAPSULE. PO SCH (09:16)
[2021-07-03] MEDS: DEXAMETHASONE SOD PHOS 4 MG/ML VIAL IVP SCH (09:17)
[2021-07-03] MEDS: PANTOPRAZOLE IV PUSH 40 MG VIAL. IVP SCH (09:42)
[2021-07-03 10:31] VITALS: BP 131/73
--- NOTE | 2021-07-03 11:02 | NUR ---
Wound/Ostomy Care Wound Type/Assessment: Patient seen per wound care consult. See wound assessment. 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 The heel wounds are cleansed, assessed, measured, and pictured. The buttocks and scrotum wounds are cleansed, assessed, and measured. The heels and feet are discolored a purple dusky color, but is this due to covid vs. arterial/venous insufficiency. Treatment Recommendations/Plan: recommendations for calazime cream to buttocks/scrotum BID and PRN, make sure to cleanse and completely dry area prior to applying cream. Rooke boots ordered bilaterally for heels, patient is able to turn, and wedge placed in room. Patient requesting to lay on back at this time. Patient is able to assist to turn, a P-500 bed not needed at this time. To the heels apply skin prep and foams bilaterally. Change on and Saturday. Dressings applied. Education provided: Patient educated on wound care, PU treatment and management. Patient v/u understanding. Offloading surface/device: Rooke boots ordered and wedge placed in room. Recommended Referrals/Tests: Patient would benefit from a podiatry consult regarding toenails. Discharge Recommendations for dressings: Dressing change instructions left in room. No other wounds noted. Bed lowered and call light in reach. Spoke with TOM Siegel and DANILO Uribe regarding POC. Wound care will follow up on 07/11/21.
--- NOTE | 2021-07-03 12:14 | NUR ---
SS following up with discharge planning. SS reviewed pt chart and discussed with pt RN. Pt is currently requiring oxygen at four liters nasal canula. COVID19 positive. Pt on IV Decadron. PO diet. Dysphagia I. Pt has no home oxygen. Self pay. Med Assist following. SS will continue to follow for discharge planning.
[2021-07-03 14:30] VITALS: BP 143/81
--- NOTE | 2021-07-03 15:53 | PDOC ---
[employer] PROGRESS NOTE Date of Service DOS: DATE: 07/03/21 TIME: 15:53 Chief Complaint Chief Complaint Acute hypoxic respiratory failure secondary to COVID-19 pneumonia Acute infectious and metabolic encephalopathy IVORY due to vasomotor nephropathyimproved Lactic acidemia Continue IV thiamine and vitamin C IV dexamethasone daily IV Remdesivir if patient requires O2 supplementation beyond there baseline Pending ferritin, LDH, CRP, D-dimer labs Titrate O2 supplementation to maintain O2 saturation greater than 92% Empiric IV antibiotics if patient has clinical presentation for bacterial pneumonia Lovenox for DVT prophylaxis Protonix GI prophylaxis ADA diet Full code Discussed with RN and SW Disposition inpatient management as above Surrogate decision maker is the undesignated History of Present Illness History of Present Illness 60-year-old male that presents today via [facility] with decreased level of consciousness. Most of the history was obtained via EMS and patient's friend Reese [phone], who states that patient has been sick since about June 22 per Reese, he states that they both had cough cold headache sinus type pain. Per Reese's report patient is okay during the day and very alert and orientated and at night he has a decreased alertness. Patient is unable to help with exam when asked questions he does deny any past medical history, surgeries, or any other health conditions. Reese who is his roommate collaborates any information gotten from the patient. Accu-Chek per EMS was 250, room air sat in the room was 88 to 90%. 07/03/2021 Patient seen examined bedside. Saturating 94% on 4 L nasal cannula. Will continue on half NS at 75 cc/h. labs reviewed, weakness Patient is not more short of air than usual. Some confusion as seems to be his baseline. Patient's chart, labs, images were reviewed and discussed with RN Vitals/I&O Vitals/I&O: Vital Signs Date Time Temp Pulse Resp B/P (MAP) Pulse Ox O2 Delivery O2 Flow Rate FiO2 07/03/21 14:30 98.0 91 20 143/81 (101) 97 Nasal Cannula 4.0 98.0 I & O 07/02/21 07/02/21 07/03/21 15:00 23:00 07:00 Intake Total 200 ml 650 ml 0 ml Output Total 500 ml Balance 200 ml 650 ml -500 ml Physical Exam General: Alert, Cooperative Heart: Regular rate Lungs: Clear Abdomen: Normal bowel sounds Extremities: No clubbing Skin: No rashes Labs Labs: Laboratory Tests Test 07/03/21 04:55 White Blood Count 11.7 x10^3/uL (4.0-11.0) Red Blood Count 5.38 x10^6/uL (4.30-5.70) Hemoglobin 16.4 g/dL (13.0-17.5) Hematocrit 50.1 % (39.0-53.0) Mean Corpuscular Volume 93 fL (79-100) Mean Corpuscular Hemoglobin 31 pg (25-35) Mean Corpuscular Hemoglobin Concent 33 g/dL (31-37) Red Cell Distribution Width 13.3 % (11.5-14.5) Platelet Count 262 x10^3/uL (140-400) Neutrophils (%) (Auto) 85 % (31-73) Lymphocytes (%) (Auto) 9 % (24-48) Monocytes (%) (Auto) 6 % (0-9) Eosinophils (%) (Auto) 0 % (0-3) Basophils (%) (Auto) 1 % (0-3) Neutrophils # (Auto) 9.9 x10^3/uL (1.8-7.7) Lymphocytes # (Auto) 1.0 x10^3/uL (1.0-4.8) Monocytes # (Auto) 0.7 x10^3/uL (0.0-1.1) Eosinophils # (Auto) 0.0 x10^3/uL (0.0-0.7) Basophils # (Auto) 0.1 x10^3/uL (0.0-0.2) Sodium Level 144 mmol/L (136-145) Potassium Level 4.6 mmol/L (3.5-5.1) Chloride Level 109 mmol/L (98-107) Carbon Dioxide Level 26 mmol/L (21-32) Anion Gap 9 (6-14) Blood Urea Nitrogen 26 mg/dL (8-26) Creatinine 1.1 mg/dL (0.7-1.3) Estimated GFR (Cockcroft-Gault) 68.1 Glucose Level 98 mg/dL (70-99) Calcium Level 8.0 mg/dL (8.5-10.1) Magnesium Level 2.4 mg/dL (1.8-2.4) Assessment and Plan Assessmemt and Plan Problems Medical Problems: (1) Dehydration Status: Acute (2) Mental status alteration Status: Acute (3) Pneumonia Status: Acute Comment Review of Relevant I have reviewed the following items amanda (where applicable) has been applied. Justifications for Admission Other Justification COVID-19 positive test (U07.1, COVID-19) with Acute Pneumonia (J12.89, Other viral pneumonia) (If respiratory failure or sepsis present, add as separate assessment) SHELLIE CAR MD Jul 03, 2021 15:53
[2021-07-03] MEDS: ENOXAPARIN 40 MG/0.4 ML SYRINGE. SQ SCH (16:12)
[2021-07-03 19:18] VITALS: BP 154/86
[2021-07-03 22:27] VITALS: BP 166/90
[2021-07-04 02:08] VITALS: BP 151/106
[2021-07-04 07:55] VITALS: BP 143/88
[2021-07-04] MEDS: ASCORBIC ACID 1,000 MG TABLET PO SCH ×3 (09:00→21:11)
[2021-07-04] MEDS: THIAMINE 100 MG TABLET. PO SCH (09:00)
[2021-07-04] MEDS: ZINC SULFATE 220 MG CAPSULE. PO SCH (09:00)
[2021-07-04] MEDS ORDERED: AA 4.25 %/CALCIUM/LYTES/D5W 1,000 ML IV SCH (09:15)
[2021-07-04] MEDS: DEXAMETHASONE SOD PHOS 4 MG/ML VIAL IVP SCH (09:44)
[2021-07-04] MEDS: PANTOPRAZOLE IV PUSH 40 MG VIAL. IVP SCH (09:44)
[2021-07-04] MEDS: IV DEXTROSE 5%-LACT RINGERS 1,000 ML IV SCH ×2 (09:46→21:11)
--- NOTE | 2021-07-04 10:36 | PDOC ---
[employer] PROGRESS NOTE Date of Service DOS: DATE: 07/04/21 TIME: 10:34 Chief Complaint Chief Complaint Acute hypoxic respiratory failure secondary to COVID-19 pneumonia Acute infectious and metabolic encephalopathy IVORY due to vasomotor nephropathyimproved Lactic acidemia dysphaiga malnutrition, COVID toes, ischemic Continue IV thiamine and vitamin C IV dexamethasone daily IV Remdesivir if patient requires O2 supplementation beyond there baseline Pending ferritin, LDH, CRP, D-dimer labs Titrate O2 supplementation to maintain O2 saturation greater than 92% Empiric IV antibiotics if patient has clinical presentation for bacterial pneumonia Lovenox for DVT prophylaxis Protonix GI prophylaxis ADA diet Full code Discussed with RN and SW Disposition inpatient management as above Surrogate decision maker is the undesignated History of Present Illness History of Present Illness 60-year-old male that presents today via [facility] with decreased level of consciousness. Most of the history was obtained via EMS and patient's friend Reese [phone], who states that patient has been sick since about June 22 per Reese, he states that they both had cough cold headache sinus type pain. Per Reese's report patient is okay during the day and very alert and orientated and at night he has a decreased alertness. Patient is unable to help with exam when asked questions he does deny any past medical history, surgeries, or any other health conditions. Reese who is his roommate collaborates any information gotten from the patient. Accu-Chek per EMS was 250, room air sat in the room was 88 to 90%. 07/03/2021 Patient seen examined bedside. Saturating 94% on 4 L nasal cannula. Will continue on half NS at 75 cc/h. labs reviewed, weakness Patient is not more short of air than usual. Some confusion as seems to be his baseline. Patient's chart, labs, images were reviewed and discussed with RN 07/04, IV nutrition, no clinimix avail, may need central line for TPN if not imrpved, cont pt and ot and speech, feet ar blue, Vitals/I&O Vitals/I&O: Vital Signs Date Time Temp Pulse Resp B/P (MAP) Pulse Ox O2 Delivery O2 Flow Rate FiO2 07/04/21 07:55 98.0 99 18 143/88 (106) 95 Room Air 98.0 07/03/21 19:05 4.0 I & O 07/03/21 07/03/21 07/04/21 15:00 23:00 07:00 Intake Total 220 ml 0 ml Output Total 400 ml Balance 220 ml -400 ml Physical Exam General: Alert, Cooperative Heart: Regular rate Lungs: Clear Abdomen: Normal bowel sounds Extremities: No clubbing Skin: No rashes Assessment and Plan Assessmemt and Plan Problems Medical Problems: (1) Dehydration Status: Acute (2) Mental status alteration Status: Acute (3) Pneumonia Status: Acute Comment Review of Relevant I have reviewed the following items amanda (where applicable) has been applied. Medications: Current Medications Medications (Trade) Dose Ordered Sig/Vicente Route PRN Reason Start Time Stop Time Status Last Admin Dose Admin Dextrose/Lactated Ringer's 1,000 ml @ 80 mls/hr [id number] IV 07/04/21 09:30 07/04/21 09:46 Justifications for Admission Other Justification COVID-19 positive test (U07.1, COVID-19) with Acute Pneumonia (J12.89, Other viral pneumonia) (If respiratory failure or sepsis present, add as separate assessment) SHELLIE CAR MD Jul 04, 2021 10:36
[2021-07-04 10:50] VITALS: BP 156/95
--- NOTE | 2021-07-04 12:39 | NUR ---
SS following up with discharge planning. SS reviewed pt chart and discussed with pt RN. Pt is currently on room air. COVID19 positive. NPO. ST following. Pt failed his swallow evaluation. Pt on Clinimix. Self pay. Med Assist following. SS will continue to follow for discharge planning.
[2021-07-04 15:05] VITALS: BP 128/78
[2021-07-04] MEDS: ENOXAPARIN 40 MG/0.4 ML SYRINGE. SQ SCH (15:39)
[2021-07-04 19:36] VITALS: BP 140/81
--- NOTE | 2021-07-04 22:00 | NUR ---
assessment completed at 1999 pt in bed pt reoriented to surroundings will resume care and continue yo monitor pt. bed alarm set
[2021-07-04 22:39] VITALS: BP 147/80
[2021-07-05 02:32] VITALS: BP 157/95
[2021-07-05 05:15] LABS: BASO # 0.1 x10^3/uL (0.0-0.2); BASO % 1 % (0-3); EOS % 0 % (0-3); HEMATOCRIT 52.9 % (39.0-53.0); HEMOGLOBIN 17.4 g/dL (13.0-17.5); LYMPH # 1.3 x10^3/uL (1.0-4.8); LYMPH % 10 % (24-48); MEAN CORPUSCULAR HEMOGLOBIN 30 pg (25-35); MEAN CORPUSCULAR HGB CONC 33 g/dL (31-37); MEAN CORPUSCULAR VOLUME 93 fL (79-100); MONO # 0.9 x10^3/uL (0.0-1.1); MONO % 6 % (0-9); NEUT # 11.7 x10^3/uL (1.8-7.7); NEUT % 83 % (31-73); PLATELET COUNT 273 x10^3/uL (140-400); RED BLOOD COUNT 5.72 x10^6/uL (4.30-5.70); RED CELL DISTRIBUTION WIDTH 13.3 % (11.5-14.5); WHITE BLOOD COUNT 14.1 x10^3/uL (4.0-11.0)
[2021-07-05 05:29] LABS: ALBUMIN 2.6 g/dL (3.4-5.0); ALBUMIN/GLOBULIN RATIO 0.6 (1.0-1.7); CALCIUM 8.2 mg/dL (8.5-10.1); CREATININE 0.9 mg/dL (0.7-1.3); GFR 85.8; POTASSIUM 4.6 mmol/L (3.5-5.1); TOTAL BILIRUBIN 0.9 mg/dL (0.2-1.0); TOTAL PROTEIN 7.1 g/dL (6.4-8.2)
[2021-07-05] MEDS: PANTOPRAZOLE IV PUSH 40 MG VIAL. IVP SCH (05:30)
[2021-07-05 08:00] VITALS: BP 133/90
[2021-07-05] MEDS: ASCORBIC ACID 1,000 MG TABLET PO SCH ×3 (09:00→21:13)
[2021-07-05] MEDS: THIAMINE 100 MG TABLET. PO SCH (09:00)
[2021-07-05] MEDS: ZINC SULFATE 220 MG CAPSULE. PO SCH (09:00)
[2021-07-05] MEDS: DEXAMETHASONE SOD PHOS 4 MG/ML VIAL IVP SCH (09:30)
[2021-07-05 11:00] VITALS: BP 147/90
[2021-07-05] MEDS: IV DEXTROSE 5%-LACT RINGERS 1,000 ML IV SCH ×2 (12:33→22:50)
--- NOTE | 2021-07-05 12:41 | PDOC ---
[employer] PROGRESS NOTE Date of Service DOS: DATE: 07/05/21 TIME: 12:38 Chief Complaint Chief Complaint confusion and lethargy, AMS acute COVID-19 infection Acute infectious and metabolic encephalopathy IVORY due to vasomotor nephropathyimproved Lactic acidemia dysphagia malnutrition, heel erythema on admit, poor nail care and dystrophic nails History of Present Illness History of Present Illness 60-year-old male that presents today via [facility] with decreased level of consciousness. Most of the history was obtained via EMS and patient's friend Reese [phone], who states that patient has been sick since about June 22 per Reese, he states that they both had cough cold headache sinus type pain. Per Reese's report patient is okay during the day and very alert and orientated and at night he has a decreased alertness. Patient is unable to help with exam when asked questions he does deny any past medical history, surgeries, or any other health conditions. Reese who is his roommate collaborates any information gotten from the patient. Accu-Chek per EMS was 250, room air sat in the room was 88 to 90%. 07/03/2021 Patient seen examined bedside. Saturating 94% on 4 L nasal cannula. Will continue on half NS at 75 cc/h. labs reviewed, weakness Patient is not more short of air than usual. Some confusion as seems to be his baseline. Patient's chart, labs, images were reviewed and discussed with RN 07/04, IV nutrition, no clinimix avail, may need central line for TPN if not imrpved, cont pt and ot and speech, feet ar blue, 07/05, consult critical care for lack of improvement, transamniitis , will check Ammonia level recheck labs, B12, RPR, TSH in AM, PT and ot followoing we have no clinimix, cont D5 fluid, TPN relative contraindicated with covid liver injury, Vitals/I&O Vitals/I&O: Vital Signs Date Time Temp Pulse Resp B/P (MAP) Pulse Ox O2 Delivery O2 Flow Rate FiO2 07/05/21 08:00 Room Air 4.0 07/05/21 02:32 97.9 89 18 157/95 (115) 94 97.9 I & O 07/04/21 07/04/21 07/05/21 15:00 23:00 07:00 Intake Total 0 ml 0 ml 0 ml Output Total 550 ml Balance 0 ml -550 ml 0 ml Physical Exam Physical Exam: lethargic and weak General: Alert, Oriented X3, Cooperative, No acute distress Heart: Regular rate Lungs: Clear Abdomen: Normal bowel sounds Extremities: No clubbing Skin: No rashes Labs Labs: Laboratory Tests Test 07/05/21 04:30 White Blood Count 14.1 x10^3/uL (4.0-11.0) Red Blood Count 5.72 x10^6/uL (4.30-5.70) Hemoglobin 17.4 g/dL (13.0-17.5) Hematocrit 52.9 % (39.0-53.0) Mean Corpuscular Volume 93 fL (79-100) Mean Corpuscular Hemoglobin 30 pg (25-35) Mean Corpuscular Hemoglobin Concent 33 g/dL (31-37) Red Cell Distribution Width 13.3 % (11.5-14.5) Platelet Count 273 x10^3/uL (140-400) Neutrophils (%) (Auto) 83 % (31-73) Lymphocytes (%) (Auto) 10 % (24-48) Monocytes (%) (Auto) 6 % (0-9) Eosinophils (%) (Auto) 0 % (0-3) Basophils (%) (Auto) 1 % (0-3) Neutrophils # (Auto) 11.7 x10^3/uL (1.8-7.7) Lymphocytes # (Auto) 1.3 x10^3/uL (1.0-4.8) Monocytes # (Auto) 0.9 x10^3/uL (0.0-1.1) Eosinophils # (Auto) 0.0 x10^3/uL (0.0-0.7) Basophils # (Auto) 0.1 x10^3/uL (0.0-0.2) Sodium Level 147 mmol/L (136-145) Potassium Level 4.6 mmol/L (3.5-5.1) Chloride Level 111 mmol/L (98-107) Carbon Dioxide Level 23 mmol/L (21-32) Anion Gap 13 (6-14) Blood Urea Nitrogen 26 mg/dL (8-26) Creatinine 0.9 mg/dL (0.7-1.3) Estimated GFR (Cockcroft-Gault) 85.8 BUN/Creatinine Ratio 29 (6-20) Glucose Level 114 mg/dL (70-99) Calcium Level 8.2 mg/dL (8.5-10.1) Total Bilirubin 0.9 mg/dL (0.2-1.0) Aspartate Amino Transf (AST/SGOT) 421 U/L (15-37) Alanine Aminotransferase (ALT/SGPT) 561 U/L (16-63) Alkaline Phosphatase 70 U/L (46-116) Total Protein 7.1 g/dL (6.4-8.2) Albumin 2.6 g/dL (3.4-5.0) Albumin/Globulin Ratio 0.6 (1.0-1.7) Assessment and Plan Assessmemt and Plan Problems Medical Problems: (1) Dehydration Status: Acute (2) Mental status alteration Status: Acute (3) Pneumonia Status: Acute Comment Review of Relevant I have reviewed the following items amanda (where applicable) has been applied. Justifications for Admission Other Justification COVID-19 positive test (U07.1, COVID-19) with Acute Pneumonia (J12.89, Other vi ral pneumonia) (If respiratory failure or sepsis present, add as separate assessment) SHELLIE CAR MD Jul 05, 2021 12:41
[2021-07-05] MEDS ORDERED: DEXTROSE 50% 25 GM / 50ML DISP.SYRIN. IV PRN (12:45)
--- NOTE | 2021-07-05 13:01 | NUR ---
SS following up with discharge planning. SS reviewed pt chart and discussed with pt RN. Pt is currently on room air. COVID19 positive. Pt on IV Decadron. NPO. ST following. Self pay. Med Assist following. Not medically ready for discharge at this time. SS will continue to follow for discharge planning.
--- NOTE | 2021-07-05 14:04 | PDOC ---
PULMONARY PROGRESS NOTES DATE: 07/05/21 TIME: 14:03 Vitals Vital Signs Date Time Temp Pulse Resp B/P (MAP) Pulse Ox O2 Delivery O2 Flow Rate FiO2 07/05/21 11:00 96.5 89 20 147/90 (109) 95 Room Air 96.5 07/05/21 08:00 4.0 Lungs: Clear Labs Laboratory Tests Test 07/05/21 04:30 07/05/21 12:31 White Blood Count 14.1 x10^3/uL (4.0-11.0) Red Blood Count 5.72 x10^6/uL (4.30-5.70) Hemoglobin 17.4 g/dL (13.0-17.5) Hematocrit 52.9 % (39.0-53.0) Mean Corpuscular Volume 93 fL (79-100) Mean Corpuscular Hemoglobin 30 pg (25-35) Mean Corpuscular Hemoglobin Concent 33 g/dL (31-37) Red Cell Distribution Width 13.3 % (11.5-14.5) Platelet Count 273 x10^3/uL (140-400) Neutrophils (%) (Auto) 83 % (31-73) Lymphocytes (%) (Auto) 10 % (24-48) Monocytes (%) (Auto) 6 % (0-9) Eosinophils (%) (Auto) 0 % (0-3) Basophils (%) (Auto) 1 % (0-3) Neutrophils # (Auto) 11.7 x10^3/uL (1.8-7.7) Lymphocytes # (Auto) 1.3 x10^3/uL (1.0-4.8) Monocytes # (Auto) 0.9 x10^3/uL (0.0-1.1) Eosinophils # (Auto) 0.0 x10^3/uL (0.0-0.7) Basophils # (Auto) 0.1 x10^3/uL (0.0-0.2) Sodium Level 147 mmol/L (136-145) Potassium Level 4.6 mmol/L (3.5-5.1) Chloride Level 111 mmol/L (98-107) Carbon Dioxide Level 23 mmol/L (21-32) Anion Gap 13 (6-14) Blood Urea Nitrogen 26 mg/dL (8-26) Creatinine 0.9 mg/dL (0.7-1.3) Estimated GFR (Cockcroft-Gault) 85.8 BUN/Creatinine Ratio 29 (6-20) Glucose Level 114 mg/dL (70-99) Calcium Level 8.2 mg/dL (8.5-10.1) Total Bilirubin 0.9 mg/dL (0.2-1.0) Aspartate Amino Transf (AST/SGOT) 421 U/L (15-37) Alanine Aminotransferase (ALT/SGPT) 561 U/L (16-63) Alkaline Phosphatase 70 U/L (46-116) Total Protein 7.1 g/dL (6.4-8.2) Albumin 2.6 g/dL (3.4-5.0) Albumin/Globulin Ratio 0.6 (1.0-1.7) Ammonia < 10 mcmol/L (11-34) Laboratory Tests Test 07/05/21 04:30 07/05/21 12:31 White Blood Count 14.1 x10^3/uL (4.0-11.0) Red Blood Count 5.72 x10^6/uL (4.30-5.70) Hemoglobin 17.4 g/dL (13.0-17.5) Hematocrit 52.9 % (39.0-53.0) Mean Corpuscular Volume 93 fL (79-100) Mean Corpuscular Hemoglobin 30 pg (25-35) Mean Corpuscular Hemoglobin Concent 33 g/dL (31-37) Red Cell Distribution Width 13.3 % (11.5-14.5) Platelet Count 273 x10^3/uL (140-400) Neutrophils (%) (Auto) 83 % (31-73) Lymphocytes (%) (Auto) 10 % (24-48) Monocytes (%) (Auto) 6 % (0-9) Eosinophils (%) (Auto) 0 % (0-3) Basophils (%) (Auto) 1 % (0-3) Neutrophils # (Auto) 11.7 x10^3/uL (1.8-7.7) Lymphocytes # (Auto) 1.3 x10^3/uL (1.0-4.8) Monocytes # (Auto) 0.9 x10^3/uL (0.0-1.1) Eosinophils # (Auto) 0.0 x10^3/uL (0.0-0.7) Basophils # (Auto) 0.1 x10^3/uL (0.0-0.2) Sodium Level 147 mmol/L (136-145) Potassium Level 4.6 mmol/L (3.5-5.1) Chloride Level 111 mmol/L (98-107) Carbon Dioxide Level 23 mmol/L (21-32) Anion Gap 13 (6-14) Blood Urea Nitrogen 26 mg/dL (8-26) Creatinine 0.9 mg/dL (0.7-1.3) Estimated GFR (Cockcroft-Gault) 85.8 BUN/Creatinine Ratio 29 (6-20) Glucose Level 114 mg/dL (70-99) Calcium Level 8.2 mg/dL (8.5-10.1) Total Bilirubin 0.9 mg/dL (0.2-1.0) Aspartate Amino Transf (AST/SGOT) 421 U/L (15-37) Alanine Aminotransferase (ALT/SGPT) 561 U/L (16-63) Alkaline Phosphatase 70 U/L (46-116) Total Protein 7.1 g/dL (6.4-8.2) Albumin 2.6 g/dL (3.4-5.0) Albumin/Globulin Ratio 0.6 (1.0-1.7) Ammonia < 10 mcmol/L (11-34) Medications Active Scripts Medications Dose Route/Sig Max Daily Dose Days Date Category No Active Prescriptions or Reported Medications Rx Impression . Full note dictated COVID-19 viral pneumonia we will encephalopathy related to COVID-[address] Diaz Will see as needed CHERY SAMPSON MD Jul 05, 2021 14:04
[2021-07-05 15:18] VITALS: BP 145/87
[2021-07-05] MEDS: ENOXAPARIN 40 MG/0.4 ML SYRINGE. SQ SCH (16:28)
[2021-07-05] MEDS: INSULIN LISPRO 300 UNITS/3 ML VIAL. SQ SCH (17:00)
[2021-07-05 19:00] VITALS: BP 151/75
[2021-07-05 23:00] VITALS: BP 154/91
--- NOTE | 2021-07-06 00:10 | CONS ---
DATE OF CONSULTATION: 07/05/2021 ATTENDING PHYSICIAN: Kalyan Tovar MD REASON FOR CONSULTATION: The patient is seen in pulmonary consultation at the request of Dr. Diaz for COVID-19. HISTORY OF PRESENT ILLNESS: The patient is a 60-year-old that presented to the Emergency Room via EMS with decreased level of consciousness. Apparently, the patient lives with a friend, Reese who stated the patient was sick since 06/22. They both had cough, congestion, sinus type of discomfort. The patient apparently had decreased level of consciousness and he was brought to the Emergency Room. O2 saturation on room air was 88%. I was asked to see him in consultation. He was also concerned that his mental status is not improving. Upon questioning, the patient knew his first name, last name. He knew that he was in the hospital. He was in no pain. He was short of breath at times. No headaches, diplopia or blurred vision. No neck rigidity. No fever, chills, nausea, vomiting. PAST MEDICAL HISTORY: Basically unremarkable. PAST SURGICAL HISTORY: None. ALLERGIES: No known drug allergies. CURRENT MEDICATIONS: List was reviewed. The patient is currently receiving dexamethasone, Lovenox, p.r.n. Ativan, Zofran, Compazine. SOCIAL HISTORY: The patient has never smoked. PHYSICAL EXAMINATION: VITAL SIGNS: Stable. O2 saturation was greater than 92%. LUNGS: Anteriorly were clear. CARDIOVASCULAR: Regular rate and rhythm with S1, S2, no S3. ABDOMEN: Soft. EXTREMITIES: No clubbing, cyanosis or edema. LABORATORY DATA: Reviewed. White count was initially elevated, came down, today is 14.1. Arterial blood gas revealed a pH of 7.45, PaCO2 of 30, pO2 of 61. Electrolytes were noted. BUN and creatinine ____. AST and ALT were elevated. D-dimer was elevated. SARS-CoV-2 was positive. IMPRESSION: 1. COVID-19 viral pneumonia. 2. Hypoxemia secondary to above. 3. Toxic encephalopathy. 4. Elevated D-dimer related to COVID-19. 5. Elevated liver function tests, suspect secondary to COVID-19. PLAN: 1. Case discussed with Dr. Diaz, I think that his encephalopathy will slowly improve with time, mostly related to COVID-19. 2. Continue current steroids. 3. Avoid any sedating or medications that would alter mental status, such as antihistamines, narcotics or anxiolytics. I do appreciate the privilege in sharing in the patient's care. LILIANE/STACEY DR: Vesna TID: [id number]
[2021-07-06 02:52] VITALS: BP 147/87
[2021-07-06] MEDS: PANTOPRAZOLE IV PUSH 40 MG VIAL. IVP SCH (05:39)
[2021-07-06 06:46] LABS: BASO # 0.1 x10^3/uL (0.0-0.2); BASO % 0 % (0-3); EOS % 0 % (0-3); HEMATOCRIT 49.1 % (39.0-53.0); HEMOGLOBIN 15.7 g/dL (13.0-17.5); LYMPH # 1.6 x10^3/uL (1.0-4.8); LYMPH % 13 % (24-48); MEAN CORPUSCULAR HEMOGLOBIN 30 pg (25-35); MEAN CORPUSCULAR HGB CONC 32 g/dL (31-37); MEAN CORPUSCULAR VOLUME 95 fL (79-100); MONO % 8 % (0-9); NEUT # 9.4 x10^3/uL (1.8-7.7); NEUT % 78 % (31-73); PLATELET COUNT 213 x10^3/uL (140-400); RED BLOOD COUNT 5.17 x10^6/uL (4.30-5.70); RED CELL DISTRIBUTION WIDTH 13.4 % (11.5-14.5)
[2021-07-06] MEDS: ZINC SULFATE 220 MG CAPSULE. PO SCH (06:48)
[2021-07-06] MEDS: THIAMINE 100 MG TABLET. PO SCH (06:49)
[2021-07-06] MEDS: ASCORBIC ACID 1,000 MG TABLET PO SCH ×3 (06:49→21:00)
[2021-07-06 07:00] VITALS: BP 143/107
[2021-07-06 07:12] LABS: ALBUMIN 2.2 g/dL (3.4-5.0); ALBUMIN/GLOBULIN RATIO 0.5 (1.0-1.7); CALCIUM 7.9 mg/dL (8.5-10.1); CREATININE 0.8 mg/dL (0.7-1.3); GFR 98.3; POTASSIUM 4.5 mmol/L (3.5-5.1); TOTAL BILIRUBIN 0.9 mg/dL (0.2-1.0); TOTAL PROTEIN 6.3 g/dL (6.4-8.2)
[2021-07-06] MEDS: INSULIN LISPRO 300 UNITS/3 ML VIAL. SQ SCH ×3 (08:00→17:00)
[2021-07-06] MEDS: DEXAMETHASONE SOD PHOS 4 MG/ML VIAL IVP SCH (08:26)
--- NOTE | 2021-07-06 08:40 | PDOC ---
PULMONARY PROGRESS NOTES DATE: 07/06/21 TIME: 08:40 Vitals Vital Signs Date Time Temp Pulse Resp B/P (MAP) Pulse Ox O2 Delivery O2 Flow Rate FiO2 07/06/21 02:52 96.6 82 20 147/87 (107) 95 Room Air 96.6 07/05/21 08:00 4.0 Lungs: Clear Labs Laboratory Tests Test 07/05/21 04:30 07/05/21 12:31 07/05/21 16:18 07/05/21 20:16 White Blood Count 14.1 x10^3/uL (4.0-11.0) Red Blood Count 5.72 x10^6/uL (4.30-5.70) Hemoglobin 17.4 g/dL (13.0-17.5) Hematocrit 52.9 % (39.0-53.0) Mean Corpuscular Volume 93 fL (79-100) Mean Corpuscular Hemoglobin 30 pg (25-35) Mean Corpuscular Hemoglobin Concent 33 g/dL (31-37) Red Cell Distribution Width 13.3 % (11.5-14.5) Platelet Count 273 x10^3/uL (140-400) Neutrophils (%) (Auto) 83 % (31-73) Lymphocytes (%) (Auto) 10 % (24-48) Monocytes (%) (Auto) 6 % (0-9) Eosinophils (%) (Auto) 0 % (0-3) Basophils (%) (Auto) 1 % (0-3) Neutrophils # (Auto) 11.7 x10^3/uL (1.8-7.7) Lymphocytes # (Auto) 1.3 x10^3/uL (1.0-4.8) Monocytes # (Auto) 0.9 x10^3/uL (0.0-1.1) Eosinophils # (Auto) 0.0 x10^3/uL (0.0-0.7) Basophils # (Auto) 0.1 x10^3/uL (0.0-0.2) Sodium Level 147 mmol/L (136-145) Potassium Level 4.6 mmol/L (3.5-5.1) Chloride Level 111 mmol/L (98-107) Carbon Dioxide Level 23 mmol/L (21-32) Anion Gap 13 (6-14) Blood Urea Nitrogen 26 mg/dL (8-26) Creatinine 0.9 mg/dL (0.7-1.3) Estimated GFR (Cockcroft-Gault) 85.8 BUN/Creatinine Ratio 29 (6-20) Glucose Level 114 mg/dL (70-99) Calcium Level 8.2 mg/dL (8.5-10.1) Total Bilirubin 0.9 mg/dL (0.2-1.0) Aspartate Amino Transf (AST/SGOT) 421 U/L (15-37) Alanine Aminotransferase (ALT/SGPT) 561 U/L (16-63) Alkaline Phosphatase 70 U/L (46-116) Total Protein 7.1 g/dL (6.4-8.2) Albumin 2.6 g/dL (3.4-5.0) Albumin/Globulin Ratio 0.6 (1.0-1.7) Ammonia < 10 mcmol/L (11-34) Glucose (Fingerstick) 139 mg/dL (70-99) 112 mg/dL (70-99) Test 07/06/21 05:01 07/06/21 06:30 Glucose (Fingerstick) 106 mg/dL (70-99) White Blood Count 12.0 x10^3/uL (4.0-11.0) Red Blood Count 5.17 x10^6/uL (4.30-5.70) Hemoglobin 15.7 g/dL (13.0-17.5) Hematocrit 49.1 % (39.0-53.0) Mean Corpuscular Volume 95 fL (79-100) Mean Corpuscular Hemoglobin 30 pg (25-35) Mean Corpuscular Hemoglobin Concent 32 g/dL (31-37) Red Cell Distribution Width 13.4 % (11.5-14.5) Platelet Count 213 x10^3/uL (140-400) Neutrophils (%) (Auto) 78 % (31-73) Lymphocytes (%) (Auto) 13 % (24-48) Monocytes (%) (Auto) 8 % (0-9) Eosinophils (%) (Auto) 0 % (0-3) Basophils (%) (Auto) 0 % (0-3) Neutrophils # (Auto) 9.4 x10^3/uL (1.8-7.7) Lymphocytes # (Auto) 1.6 x10^3/uL (1.0-4.8) Monocytes # (Auto) 1.0 x10^3/uL (0.0-1.1) Eosinophils # (Auto) 0.0 x10^3/uL (0.0-0.7) Basophils # (Auto) 0.1 x10^3/uL (0.0-0.2) Sodium Level 145 mmol/L (136-145) Potassium Level 4.5 mmol/L (3.5-5.1) Chloride Level 111 mmol/L (98-107) Carbon Dioxide Level 23 mmol/L (21-32) Anion Gap 11 (6-14) Blood Urea Nitrogen 23 mg/dL (8-26) Creatinine 0.8 mg/dL (0.7-1.3) Estimated GFR (Cockcroft-Gault) 98.3 BUN/Creatinine Ratio 29 (6-20) Glucose Level 108 mg/dL (70-99) Calcium Level 7.9 mg/dL (8.5-10.1) Total Bilirubin 0.9 mg/dL (0.2-1.0) Gamma Glutamyl Transpeptidase 96 U/L (10-85) Aspartate Amino Transf (AST/SGOT) 306 U/L (15-37) Alanine Aminotransferase (ALT/SGPT) 461 U/L (16-63) Alkaline Phosphatase 65 U/L (46-116) Total Protein 6.3 g/dL (6.4-8.2) Albumin 2.2 g/dL (3.4-5.0) Albumin/Globulin Ratio 0.5 (1.0-1.7) Thyroid Stimulating Hormone (TSH) 2.977 uIU/mL (0.358-3.74) Laboratory Tests Test 07/05/21 12:31 07/05/21 16:18 07/05/21 20:16 07/06/21 05:01 Ammonia < 10 mcmol/L (11-34) Glucose (Fingerstick) 139 mg/dL (70-99) 112 mg/dL (70-99) 106 mg/dL (70-99) Test 07/06/21 06:30 White Blood Count 12.0 x10^3/uL (4.0-11.0) Red Blood Count 5.17 x10^6/uL (4.30-5.70) Hemoglobin 15.7 g/dL (13.0-17.5) Hematocrit 49.1 % (39.0-53.0) Mean Corpuscular Volume 95 fL (79-100) Mean Corpuscular Hemoglobin 30 pg (25-35) Mean Corpuscular Hemoglobin Concent 32 g/dL (31-37) Red Cell Distribution Width 13.4 % (11.5-14.5) Platelet Count 213 x10^3/uL (140-400) Neutrophils (%) (Auto) 78 % (31-73) Lymphocytes (%) (Auto) 13 % (24-48) Monocytes (%) (Auto) 8 % (0-9) Eosinophils (%) (Auto) 0 % (0-3) Basophils (%) (Auto) 0 % (0-3) Neutrophils # (Auto) 9.4 x10^3/uL (1.8-7.7) Lymphocytes # (Auto) 1.6 x10^3/uL (1.0-4.8) Monocytes # (Auto) 1.0 x10^3/uL (0.0-1.1) Eosinophils # (Auto) 0.0 x10^3/uL (0.0-0.7) Basophils # (Auto) 0.1 x10^3/uL (0.0-0.2) Sodium Level 145 mmol/L (136-145) Potassium Level 4.5 mmol/L (3.5-5.1) Chloride Level 111 mmol/L (98-107) Carbon Dioxide Level 23 mmol/L (21-32) Anion Gap 11 (6-14) Blood Urea Nitrogen 23 mg/dL (8-26) Creatinine 0.8 mg/dL (0.7-1.3) Estimated GFR (Cockcroft-Gault) 98.3 BUN/Creatinine Ratio 29 (6-20) Glucose Level 108 mg/dL (70-99) Calcium Level 7.9 mg/dL (8.5-10.1) Total Bilirubin 0.9 mg/dL (0.2-1.0) Gamma Glutamyl Transpeptidase 96 U/L (10-85) Aspartate Amino Transf (AST/SGOT) 306 U/L (15-37) Alanine Aminotransferase (ALT/SGPT) 461 U/L (16-63) Alkaline Phosphatase 65 U/L (46-116) Total Protein 6.3 g/dL (6.4-8.2) Albumin 2.2 g/dL (3.4-5.0) Albumin/Globulin Ratio 0.5 (1.0-1.7) Thyroid Stimulating Hormone (TSH) 2.977 uIU/mL (0.358-3.74) Medications Active Scripts Medications Dose Route/Sig Max Daily Dose Days Date Category No Active Prescriptions or Reported Medications Rx Impression . Full note dictated COVID-19 viral pneumonia we will encephalopathy related to COVID-[address] Diaz Will see as needed CHERY SAMPSON MD Jul 06, 2021 08:40
[2021-07-06 11:00] VITALS: BP 141/66
--- NOTE | 2021-07-06 11:25 | NUR ---
SS following up with discharge planning. SS reviewed pt chart and discussed with pt RN. Pt is currently on room air. COVID19 positive. Pt on IV Decadron. NPO. ST following. Pt having increased confusion. Self pay. Med Assist following. Not medically ready for discharge at this time. SS will continue to follow for discharge planning.
[2021-07-06] MEDS: IV DEXTROSE 5%-LACT RINGERS 1,000 ML IV SCH ×2 (12:10→23:52)
[2021-07-06 15:00] VITALS: BP 159/89
[2021-07-06] MEDS: ENOXAPARIN 40 MG/0.4 ML SYRINGE. SQ SCH (16:09)
[2021-07-06 19:00] VITALS: BP 136/77
--- NOTE | 2021-07-06 19:30 | NUR ---
Pt in bed assessment completed vss pt confused pt reoriented to surroundings bed alarm set call light in reach will resume care.
[2021-07-06 22:44] VITALS: BP 159/94
[2021-07-07] VITALS (7 sets, daily range): BP systolic 144–186; BP diastolic 74–91
[2021-07-07] MEDS: PANTOPRAZOLE IV PUSH 40 MG VIAL. IVP SCH (05:54)
[2021-07-07] MEDS: INSULIN LISPRO 300 UNITS/3 ML VIAL. SQ SCH ×3 (08:00→17:00)
[2021-07-07] MEDS: THIAMINE 100 MG TABLET. PO SCH (09:00)
[2021-07-07] MEDS: ZINC SULFATE 220 MG CAPSULE. PO SCH (09:00)
[2021-07-07] MEDS: ASCORBIC ACID 1,000 MG TABLET PO SCH ×3 (09:00→21:00)
[2021-07-07] MEDS: DEXAMETHASONE SOD PHOS 4 MG/ML VIAL IVP SCH (10:16)
--- NOTE | 2021-07-07 12:07 | PDOC ---
PULMONARY PROGRESS NOTES DATE: 07/07/21 TIME: 12:06 Subjective Patient denies any shortness of breath. Remains on room air. Vitals Vital Signs Date Time Temp Pulse Resp B/P (MAP) Pulse Ox O2 Delivery O2 Flow Rate FiO2 07/07/21 10:38 97.9 78 20 146/88 (107) 94 Room Air 97.9 General: No acute distress Lungs: Clear Cardiovascular: S1 Abdomen: Soft Extremities: No Edema Skin: Warm Labs Laboratory Tests Test 07/05/21 12:31 07/05/21 16:18 07/05/21 20:16 07/06/21 05:01 Ammonia < 10 mcmol/L (11-34) Glucose (Fingerstick) 139 mg/dL (70-99) 112 mg/dL (70-99) 106 mg/dL (70-99) Test 07/06/21 06:30 07/06/21 18:25 07/06/21 23:54 07/07/21 06:08 White Blood Count 12.0 x10^3/uL (4.0-11.0) Red Blood Count 5.17 x10^6/uL (4.30-5.70) Hemoglobin 15.7 g/dL (13.0-17.5) Hematocrit 49.1 % (39.0-53.0) Mean Corpuscular Volume 95 fL (79-100) Mean Corpuscular Hemoglobin 30 pg (25-35) Mean Corpuscular Hemoglobin Concent 32 g/dL (31-37) Red Cell Distribution Width 13.4 % (11.5-14.5) Platelet Count 213 x10^3/uL (140-400) Neutrophils (%) (Auto) 78 % (31-73) Lymphocytes (%) (Auto) 13 % (24-48) Monocytes (%) (Auto) 8 % (0-9) Eosinophils (%) (Auto) 0 % (0-3) Basophils (%) (Auto) 0 % (0-3) Neutrophils # (Auto) 9.4 x10^3/uL (1.8-7.7) Lymphocytes # (Auto) 1.6 x10^3/uL (1.0-4.8) Monocytes # (Auto) 1.0 x10^3/uL (0.0-1.1) Eosinophils # (Auto) 0.0 x10^3/uL (0.0-0.7) Basophils # (Auto) 0.1 x10^3/uL (0.0-0.2) Sodium Level 145 mmol/L (136-145) Potassium Level 4.5 mmol/L (3.5-5.1) Chloride Level 111 mmol/L (98-107) Carbon Dioxide Level 23 mmol/L (21-32) Anion Gap 11 (6-14) Blood Urea Nitrogen 23 mg/dL (8-26) Creatinine 0.8 mg/dL (0.7-1.3) Estimated GFR (Cockcroft-Gault) 98.3 BUN/Creatinine Ratio 29 (6-20) Glucose Level 108 mg/dL (70-99) Calcium Level 7.9 mg/dL (8.5-10.1) Total Bilirubin 0.9 mg/dL (0.2-1.0) Gamma Glutamyl Transpeptidase 96 U/L (10-85) Aspartate Amino Transf (AST/SGOT) 306 U/L (15-37) Alanine Aminotransferase (ALT/SGPT) 461 U/L (16-63) Alkaline Phosphatase 65 U/L (46-116) Total Protein 6.3 g/dL (6.4-8.2) Albumin 2.2 g/dL (3.4-5.0) Albumin/Globulin Ratio 0.5 (1.0-1.7) Vitamin B12 Level 1127 pg/mL (247-911) Thyroid Stimulating Hormone (TSH) 2.977 uIU/mL (0.358-3.74) Treponema pallidum Antibody Nonreactive (Nonreactive) Glucose (Fingerstick) 112 mg/dL (70-99) 90 mg/dL (70-99) 105 mg/dL (70-99) Test 07/07/21 11:29 Glucose (Fingerstick) 107 mg/dL (70-99) Laboratory Tests Test 07/06/21 18:25 07/06/21 23:54 07/07/21 06:08 07/07/21 11:29 Glucose (Fingerstick) 112 mg/dL (70-99) 90 mg/dL (70-99) 105 mg/dL (70-99) 107 mg/dL (70-99) Medications Active Scripts Medications Dose Route/Sig Max Daily Dose Days Date Category No Active Prescriptions or Reported Medications Rx Impression . 1. COVID-19 viral pneumonia. 2. Hypoxemia secondary to above. Resolved. 3. Toxic encephalopathy. 4. Elevated D-dimer related to COVID-19. 5. Elevated liver function tests, suspect secondary to COVID-19. Plan . 1. Case discussed with Dr. Diaz, I think that his encephalopathy will slowly improve with time, mostly related to COVID-19. 2. Continue current steroids. 3. Avoid any sedating or medications that would alter mental status, such as antihistamines, narcotics or anxiolytics. 4. Pulmonary status is stable. We will sign off and see me as needed JAIME DOTY MD Jul 07, 2021 12:07
[2021-07-07] MEDS: IV DEXTROSE 5%-LACT RINGERS 1,000 ML IV SCH (12:15)
--- NOTE | 2021-07-07 13:34 | PDOC ---
[employer] PROGRESS NOTE Date of Service DOS: DATE: 07/07/21 TIME: 13:33 Chief Complaint Chief Complaint confusion and lethargy, AMS acute COVID-19 infection Acute infectious and metabolic encephalopathy IVORY due to vasomotor nephropathyimproved Lactic acidemia dysphagia malnutrition, heel erythema on admit, poor nail care and dystrophic nails History of Present Illness History of Present Illness 60-year-old male that presents today via [facility] with decreased level of consciousness. Most of the history was obtained via EMS and patient's friend Reese [phone], who states that patient has been sick since about June 22 per Reese, he states that they both had cough cold headache sinus type pain. Per Reese's report patient is okay during the day and very alert and orientated and at night he has a decreased alertness. Patient is unable to help with exam when asked questions he does deny any past medical history, surgeries, or any other health conditions. Reese who is his roommate collaborates any information gotten from the patient. Accu-Chek per EMS was 250, room air sat in the room was 88 to 90%. 07/07 not much improved, about the same cont current PULM following we have no clinimix, cont D5 fluid, Vitals/I&O Vitals/I&O: Vital Signs Date Time Temp Pulse Resp B/P (MAP) Pulse Ox O2 Delivery O2 Flow Rate FiO2 07/07/21 10:38 97.9 78 20 146/88 (107) 94 Room Air 97.9 I & O 07/06/21 07/06/21 07/07/21 15:00 23:00 07:00 Intake Total 1000 ml 0 ml 0 ml Output Total 500 ml 250 ml 550 ml Balance 500 ml -250 ml -550 ml Physical Exam Physical Exam: lethargic and weak General: Alert, Oriented X3, Cooperative, No acute distress Heart: Regular rate Lungs: Clear Abdomen: Normal bowel sounds Extremities: No clubbing Skin: No rashes Labs Labs: Laboratory Tests Test 07/06/21 18:25 07/06/21 23:54 07/07/21 06:08 07/07/21 11:29 Glucose (Fingerstick) 112 mg/dL (70-99) 90 mg/dL (70-99) 105 mg/dL (70-99) 107 mg/dL (70-99) Assessment and Plan Assessmemt and Plan Problems Medical Problems: (1) Dehydration Status: Acute (2) Mental status alteration Status: Acute (3) Pneumonia Status: Acute Comment Review of Relevant I have reviewed the following items amanda (where applicable) has been applied. Justifications for Admission Other Justification COVID-19 positive test (U07.1, COVID-19) with Acute Pneumonia (J12.89, Other viral pneumonia) (If respiratory failure or sepsis present, add as separate assessment) SHELLIE CAR MD Jul 07, 2021 13:34
[2021-07-07] MEDS: ENOXAPARIN 40 MG/0.4 ML SYRINGE. SQ SCH (17:31)
[2021-07-08] VITALS (7 sets, daily range): BP systolic 133–160; BP diastolic 80–92
[2021-07-08] MEDS: IV DEXTROSE 5%-LACT RINGERS 1,000 ML IV SCH ×2 (05:24→17:56)
[2021-07-08] MEDS: INSULIN LISPRO 300 UNITS/3 ML VIAL. SQ SCH ×3 (08:00→17:00)
[2021-07-08] MEDS: ZINC SULFATE 220 MG CAPSULE. PO SCH (09:00)
[2021-07-08] MEDS: ASCORBIC ACID 1,000 MG TABLET PO SCH ×3 (09:00→21:00)
[2021-07-08] MEDS: THIAMINE 100 MG TABLET. PO SCH (09:00)
[2021-07-08] MEDS: PANTOPRAZOLE IV PUSH 40 MG VIAL. IVP SCH (09:21)
[2021-07-08] MEDS: DEXAMETHASONE SOD PHOS 4 MG/ML VIAL IVP SCH (09:21)
--- NOTE | 2021-07-08 11:58 | PDOC ---
[employer] PROGRESS NOTE Date of Service DOS: DATE: 07/08/21 TIME: 11:57 Chief Complaint Chief Complaint confusion and lethargy, AMS acute COVID-19 infection Acute infectious and metabolic encephalopathy IVORY due to vasomotor nephropathyimproved Lactic acidemia dysphagia malnutrition, heel erythema on admit, poor nail care and dystrophic nails History of Present Illness History of Present Illness 60-year-old male that presents today via [facility] with decreased level of consciousness. Most of the history was obtained via EMS and patient's friend Reese [phone], who states that patient has been sick since about June 22 per Reese, he states that they both had cough cold headache sinus type pain. Per Reese's report patient is okay during the day and very alert and orientated and at night he has a decreased alertness. Patient is unable to help with exam when asked questions he does deny any past medical history, surgeries, or any other health conditions. Reese who is his roommate collaborates any information gotten from the patient. Accu-Chek per EMS was 250, room air sat in the room was 88 to 90%. 07/07 not much improved, about the same cont current PULM following we have no clinimix, cont D5 fluid, 07/08, more alert, can try ST again, if able to sit up, still very weak Vitals/I&O Vitals/I&O: Vital Signs Date Time Temp Pulse Resp B/P (MAP) Pulse Ox O2 Delivery O2 Flow Rate FiO2 07/08/21 08:00 Nasal Cannula 2.0 07/08/21 07:00 97.5 77 20 142/91 (108) 92 97.5 I & O 07/07/21 07/07/21 07/08/21 15:00 23:00 07:00 Intake Total 1000 ml 0 ml 1000 ml Output Total 650 ml 500 ml Balance 1000 ml -650 ml 500 ml Physical Exam Physical Exam: lethargic and weak General: Alert, Oriented X3, Cooperative, No acute distress Heart: Regular rate Lungs: Clear Abdomen: Normal bowel sounds Extremities: No clubbing Skin: No rashes Labs Labs: Laboratory Tests Test 07/07/21 16:53 07/08/21 00:09 07/08/21 05:45 07/08/21 11:53 Glucose (Fingerstick) 131 mg/dL (70-99) 96 mg/dL (70-99) 85 mg/dL (70-99) 107 mg/dL (70-99) Assessment and Plan Assessmemt and Plan Problems Medical Problems: (1) Dehydration Status: Acute (2) Mental status alteration Status: Acute (3) Pneumonia Status: Acute Comment Review of Relevant I have reviewed the following items amanda (where applicable) has been applied. Justifications for Admission Other Justification COVID-19 positive test (U07.1, COVID-19) with Acute Pneumonia (J12.89, Other viral pneumonia) (If respiratory failure or sepsis present, add as separate assessment) SHELLIE CAR MD Jul 08, 2021 11:58
[2021-07-08] MEDS: ENOXAPARIN 40 MG/0.4 ML SYRINGE. SQ SCH (16:26)
[2021-07-09 02:55] VITALS: BP 152/88
[2021-07-09] MEDS: IV DEXTROSE 5%-LACT RINGERS 1,000 ML IV SCH ×2 (06:22→19:12)
[2021-07-09 07:00] VITALS: BP 159/99
[2021-07-09] MEDS: INSULIN LISPRO 300 UNITS/3 ML VIAL. SQ SCH ×3 (08:00→17:00)
[2021-07-09] MEDS: ASCORBIC ACID 1,000 MG TABLET PO SCH ×3 (09:00→20:45)
[2021-07-09] MEDS: THIAMINE 100 MG TABLET. PO SCH (09:00)
[2021-07-09] MEDS: ZINC SULFATE 220 MG CAPSULE. PO SCH (09:00)
[2021-07-09] MEDS: PANTOPRAZOLE IV PUSH 40 MG VIAL. IVP SCH (09:04)
[2021-07-09] MEDS: DEXAMETHASONE SOD PHOS 4 MG/ML VIAL IVP SCH (09:04)
[2021-07-09 11:00] VITALS: BP 131/79
[2021-07-09 15:00] VITALS: BP 142/82
[2021-07-09 17:15] LABS: BASO % 0 % (0-3); EOS % 0 % (0-3); HEMATOCRIT 46.6 % (39.0-53.0); LYMPH # 0.9 x10^3/uL (1.0-4.8); LYMPH % 10 % (24-48); MEAN CORPUSCULAR HEMOGLOBIN 32 pg (25-35); MEAN CORPUSCULAR HGB CONC 34 g/dL (31-37); MEAN CORPUSCULAR VOLUME 92 fL (79-100); MONO # 0.4 x10^3/uL (0.0-1.1); MONO % 4 % (0-9); NEUT % 86 % (31-73); PLATELET COUNT 215 x10^3/uL (140-400); RED BLOOD COUNT 5.07 x10^6/uL (4.30-5.70); WHITE BLOOD COUNT 9.3 x10^3/uL (4.0-11.0)
--- NOTE | 2021-07-09 17:18 | PDOC ---
[employer] [facility] PROGRESS NOTE Date of Service DOS: DATE: 07/09/21 TIME: 17:16 Chief Complaint Chief Complaint confusion and lethargy, AMS acute COVID-19 infection Acute infectious and metabolic encephalopathy IVORY due to vasomotor nephropathyimproved Lactic acidemia dysphagia malnutrition, heel erythema on admit, poor nail care and dystrophic nails History of Present Illness History of Present Illness 60-year-old male that presents today via [facility] with decreased level of consciousness. Most of the history was obtained via EMS and patient's friend Reese [phone], who states that patient has been sick since about June 22 per Reese, he states that they both had cough cold headache sinus type pain. Per Reese's report patient is okay during the day and very alert and orientated and at night he has a decreased alertness. Patient is unable to help with exam when asked questions he does deny any past medical history, surgeries, or any other health conditions. Reese who is his roommate collaborates any information gotten from the patient. Accu-Chek per EMS was 250, room air sat in the room was 88 to 90%. 07/07 not much improved, about the same cont current PULM following we have no clinimix, cont D5 fluid, 07/08, more alert, can try ST again, if able to sit up, still very weak 07/09, much more alert, bedside swallow of water ok, sits upright, much stronger, will try clears if able, ST to follow toes are worsening, now hannah leigh consult podiatry to follow, Vitals/I&O Vitals/I&O: Vital Signs Date Time Temp Pulse Resp B/P (MAP) Pulse Ox O2 Delivery O2 Flow Rate FiO2 07/09/21 15:00 97.8 72 20 142/82 (102) 94 Room Air 97.8 07/09/21 08:00 2.0 I & O 07/08/21 07/08/21 07/09/21 15:00 23:00 07:00 Intake Total 1000 ml Output Total 600 ml Balance 400 ml Physical Exam Physical Exam: lethargic and weak General: Alert, Oriented X3, Cooperative, No acute distress Heart: Regular rate Lungs: Clear Abdomen: Normal bowel sounds Extremities: No clubbing, No edema, Other (black skin to toes, looks necrotic ) Skin: Other (toes blackend, very poor nail care, dystrophic nails and fungus) Labs Labs: Laboratory Tests Test 07/08/21 17:40 07/09/21 00:01 07/09/21 06:10 07/09/21 11:06 Glucose (Fingerstick) 118 mg/dL (70-99) 100 mg/dL (70-99) 101 mg/dL (70-99) 109 mg/dL (70-99) Test 07/09/21 12:36 07/09/21 16:58 Glucose (Fingerstick) 124 mg/dL (70-99) White Blood Count 9.3 x10^3/uL (4.0-11.0) Red Blood Count 5.07 x10^6/uL (4.30-5.70) Hemoglobin 16.0 g/dL (13.0-17.5) Hematocrit 46.6 % (39.0-53.0) Mean Corpuscular Volume 92 fL (79-100) Mean Corpuscular Hemoglobin 32 pg (25-35) Mean Corpuscular Hemoglobin Concent 34 g/dL (31-37) Red Cell Distribution Width 13.0 % (11.5-14.5) Platelet Count 215 x10^3/uL (140-400) Neutrophils (%) (Auto) 86 % (31-73) Lymphocytes (%) (Auto) 10 % (24-48) Monocytes (%) (Auto) 4 % (0-9) Eosinophils (%) (Auto) 0 % (0-3) Basophils (%) (Auto) 0 % (0-3) Neutrophils # (Auto) 8.0 x10^3/uL (1.8-7.7) Lymphocytes # (Auto) 0.9 x10^3/uL (1.0-4.8) Monocytes # (Auto) 0.4 x10^3/uL (0.0-1.1) Eosinophils # (Auto) 0.0 x10^3/uL (0.0-0.7) Basophils # (Auto) 0.0 x10^3/uL (0.0-0.2) Assessment and Plan Assessmemt and Plan Problems Medical Problems: (1) Dehydration Status: Acute (2) Mental status alteration Status: Acute (3) Pneumonia Status: Acute Comment Review of Relevant I have reviewed the following items amanda (where applicable) has been applied. Justifications for Admission Other Justification COVID-19 positive test (U07.1, COVID-19) with Acute Pneumonia (J12.89, Other viral pneumonia) (If respiratory failure or sepsis present, add as separate assessment) SHELLIE CAR MD Jul 09, 2021 17:18
[2021-07-09] MEDS: ENOXAPARIN 40 MG/0.4 ML SYRINGE. SQ SCH (17:20)
[2021-07-09 17:23] LABS: ALBUMIN 2.2 g/dL (3.4-5.0); ALBUMIN/GLOBULIN RATIO 0.5 (1.0-1.7); CALCIUM 7.5 mg/dL (8.5-10.1); CREATININE 0.8 mg/dL (0.7-1.3); GFR 98.3; POTASSIUM 3.9 mmol/L (3.5-5.1); TOTAL BILIRUBIN 0.9 mg/dL (0.2-1.0); TOTAL PROTEIN 6.4 g/dL (6.4-8.2)
[2021-07-09 19:50] VITALS: BP 138/83
[2021-07-09 22:40] VITALS: BP 148/82
[2021-07-10] VITALS (7 sets, daily range): BP systolic 128–158; BP diastolic 75–86
[2021-07-10] MEDS: PANTOPRAZOLE IV PUSH 40 MG VIAL. IVP SCH (05:11)
[2021-07-10] MEDS: IV DEXTROSE 5%-LACT RINGERS 1,000 ML IV SCH ×2 (05:11→17:50)
[2021-07-10] MEDS: INSULIN LISPRO 300 UNITS/3 ML VIAL. SQ SCH ×3 (08:00→17:00)
[2021-07-10] MEDS: DEXAMETHASONE SOD PHOS 4 MG/ML VIAL IVP SCH (08:57)
--- NOTE | 2021-07-10 12:34 | PDOC ---
[employer] [facility] PROGRESS NOTE Date of Service DOS: DATE: 07/10/21 TIME: 12:29 Chief Complaint Chief Complaint confusion and lethargy, AMS acute COVID-19 infection Acute infectious and metabolic encephalopathy IVORY due to vasomotor nephropathyimproved Lactic acidemia dysphagia malnutrition, heel erythema on admit, poor nail care and dystrophic nails History of Present Illness History of Present Illness 60-year-old male that presented 06/29/2021 via [facility] with decreased level of consciousness. Most of the history was obtained via EMS and patient's friend Reese [phone], who states that patient has been sick since about June 22 per Reese, he states that they both had cough cold headache sinus type pain. Per Reese's report patient is okay during the day and very alert and orientated and at night he has a decreased alertness. Patient is unable to help with exam when asked questions he does deny any past medical history, surgeries, or any other health conditions. Reese who is his roommate collaborates any information gotten from the patient. Accu-Chek per EMS was 250, room air sat in the room was 88 to 90%. 07/07 not much improved, about the same. cont current. PULM following. we have no clinimix, cont D5 fluid, 07/08, more alert, can try ST again, if able to sit up, still very weak 07/09, much more alert, bedside swallow of water ok, sits upright, much stronger, will try clears if able, ST to follow. toes are worsening, now black, hannah consult podiatry to follow, 07/10: More alert. Working with speech and swallowing today. Off O2. Less confused. Bilateral toe ulcers assessed by podiatry today Vitals/I&O Vitals/I&O: Vital Signs Date Time Temp Pulse Resp B/P (MAP) Pulse Ox O2 Delivery O2 Flow Rate FiO2 07/10/21 11:00 98.2 70 18 152/78 (102) 95 Room Air 98.2 07/09/21 20:00 2.0 I & O0 07/09/21 07/09/21 07/10/21 15:00 23:00 07:00 Output Total 600 ml 975 ml 750 ml Balance -600 ml -975 ml -750 ml Physical Exam Physical Exam: lethargic and weak General: Alert, Oriented X3, Cooperative, No acute distress Heart: Regular rate Lungs: Clear Abdomen: Normal bowel sounds Extremities: No clubbing, No edema, Other (black skin to toes, looks necrotic ) Skin: Other (toes blackend, very poor nail care, dystrophic nails and fungus) Labs Labs: Laboratory Tests Test 07/09/21 12:36 07/09/21 16:58 07/09/21 18:21 07/09/21 23:34 Glucose (Fingerstick) 124 mg/dL (70-99) 124 mg/dL (70-99) 82 mg/dL (70-99) White Blood Count 9.3 x10^3/uL (4.0-11.0) Red Blood Count 5.07 x10^6/uL (4.30-5.70) Hemoglobin 16.0 g/dL (13.0-17.5) Hematocrit 46.6 % (39.0-53.0) Mean Corpuscular Volume 92 fL (79-100) Mean Corpuscular Hemoglobin 32 pg (25-35) Mean Corpuscular Hemoglobin Concent 34 g/dL (31-37) Red Cell Distribution Width 13.0 % (11.5-14.5) Platelet Count 215 x10^3/uL (140-400) Neutrophils (%) (Auto) 86 % (31-73) Lymphocytes (%) (Auto) 10 % (24-48) Monocytes (%) (Auto) 4 % (0-9) Eosinophils (%) (Auto) 0 % (0-3) Basophils (%) (Auto) 0 % (0-3) Neutrophils # (Auto) 8.0 x10^3/uL (1.8-7.7) Lymphocytes # (Auto) 0.9 x10^3/uL (1.0-4.8) Monocytes # (Auto) 0.4 x10^3/uL (0.0-1.1) Eosinophils # (Auto) 0.0 x10^3/uL (0.0-0.7) Basophils # (Auto) 0.0 x10^3/uL (0.0-0.2) Sodium Level 136 mmol/L (136-145) Potassium Level 3.9 mmol/L (3.5-5.1) Chloride Level 103 mmol/L (98-107) Carbon Dioxide Level 25 mmol/L (21-32) Anion Gap 8 (6-14) Blood Urea Nitrogen 13 mg/dL (8-26) Creatinine 0.8 mg/dL (0.7-1.3) Estimated GFR (Cockcroft-Gault) 98.3 BUN/Creatinine Ratio 16 (6-20) Glucose Level 140 mg/dL (70-99) Calcium Level 7.5 mg/dL (8.5-10.1) Total Bilirubin 0.9 mg/dL (0.2-1.0) Aspartate Amino Transf (AST/SGOT) 172 U/L (15-37) Alanine Aminotransferase (ALT/SGPT) 331 U/L (16-63) Alkaline Phosphatase 78 U/L (46-116) Total Protein 6.4 g/dL (6.4-8.2) Albumin 2.2 g/dL (3.4-5.0) Albumin/Globulin Ratio 0.5 (1.0-1.7) Test 07/10/21 05:35 07/10/21 11:37 Glucose (Fingerstick) 96 mg/dL (70-99) 132 mg/dL (70-99) Assessment and Plan Assessmemt and Plan Problems Medical Problems: (1) Dehydration Status: Acute (2) Mental status alteration Status: Acute (3) Pneumonia Status: Acute Comment Review of Relevant I have reviewed the following items amanda (where applicable) has been applied. Justifications for Admission Other Justification COVID-19 positive test (U07.1, COVID-19) with Acute Pneumonia (J12.89, Other viral pneumonia) (If respiratory failure or sepsis present, add as separate assessment) SIMONE ARGUELLO MD Jul 10, 2021 12:31
[2021-07-10] MEDS: ASCORBIC ACID 1,000 MG TABLET PO SCH ×3 (14:00→21:06)
--- NOTE | 2021-07-10 14:06 | NUR ---
SS following up with discharge planning. SS reviewed pt chart and discussed with pt RN. Pt is currently on room air. COVID19 positive. Pt on PO diet now. PT/OT following. Pt more alert but continues to have weakness. Self pay. Med Assist following. SS will continue to follow for discharge planning.
[2021-07-10] MEDS: THIAMINE 100 MG TABLET. PO SCH (15:43)
[2021-07-10] MEDS: ZINC SULFATE 220 MG CAPSULE. PO SCH (15:43)
[2021-07-10] MEDS: ENOXAPARIN 40 MG/0.4 ML SYRINGE. SQ SCH (15:47)
--- NOTE | 2021-07-10 16:41 | PDOC2 ---
DEEPALI BRAR EMULSIFICATION OPERATOR 07/10/21 1641: CARDIAC CONSULT DATE OF CONSULT Date of Consult DATE: 07/10/21 TIME: 16:26 REASON FOR CONSULT Reason for Consult: PAD REFERRING PHYSICIAN Referring Physician: Dr Griffin SOURCE Source: Chart review HISTORY OF PRESENT ILLNESS HISTORY OF PRESENT ILLNESS This is a 60 yo male presented secondary to altered mental status. Is COIVD positive. Was noted with decrease perfusion to bilateral toes. Progressively worsened, toes blackened and ulcers developed. Podiatry consulted. Due to concerns for PAD, cardiology was consulted. PAST MEDICAL HISTORY Cardiovascular: No pertinent hx Pulmonary: No pertinent hx GI: No pertinent hx Heme/Onc: No pertinent hx Hepatobiliary: No pertinent hx Psych: No pertinent hx Rheumatologic: No pertinent hx Infectious disease: No pertinent hx ENT: No pertinent hx Renal/: No pertinent hx Endocrine: No pertinent hx Dermatology: No pertinent hx PAST SURGICAL HISTORY Past Surgical History: No pertinent history FAMILY HISTORY Family History: Other (noncontributory ) SOCIAL HISTORY Smoke: No ALCOHOL: none Drugs: None ALLERGIES ALLERGIES: Coded Allergies: No Known Allergies (Verified Allergy, Unknown, 07/06/21) ROS Review of System 14 point ROS conducted with pertinent positives noted above in hPI VITALS/I&O VITALS/I&O: Vital Signs Date Time Temp Pulse Resp B/P (MAP) Pulse Ox O2 Delivery O2 Flow Rate FiO2 07/10/21 15:00 97.8 83 18 148/83 (104) 94 Room Air 97.8 07/09/21 20:00 2.0 l I & O 07/09/21 07/09/21 07/10/21 15:00 23:00 07:00 Output Total 600 ml 975 ml 750 ml Balance -600 ml -975 ml -750 ml LABS Lab: Laboratory Tests Test 07/09/21 16:58 07/09/21 18:21 07/09/21 23:34 07/10/21 05:35 White Blood Count 9.3 x10^3/uL (4.0-11.0) Red Blood Count 5.07 x10^6/uL (4.30-5.70) Hemoglobin 16.0 g/dL (13.0-17.5) Hematocrit 46.6 % (39.0-53.0) Mean Corpuscular Volume 92 fL (79-100) Mean Corpuscular Hemoglobin 32 pg (25-35) Mean Corpuscular Hemoglobin Concent 34 g/dL (31-37) Red Cell Distribution Width 13.0 % (11.5-14.5) Platelet Count 215 x10^3/uL (140-400) Neutrophils (%) (Auto) 86 % (31-73) H Lymphocytes (%) (Auto) 10 % (24-48) L Monocytes (%) (Auto) 4 % (0-9) Eosinophils (%) (Auto) 0 % (0-3) Basophils (%) (Auto) 0 % (0-3) Neutrophils # (Auto) 8.0 x10^3/uL (1.8-7.7) H Lymphocytes # (Auto) 0.9 x10^3/uL (1.0-4.8) L Monocytes # (Auto) 0.4 x10^3/uL (0.0-1.1) Eosinophils # (Auto) 0.0 x10^3/uL (0.0-0.7) Basophils # (Auto) 0.0 x10^3/uL (0.0-0.2) Sodium Level 136 mmol/L (136-145) Potassium Level 3.9 mmol/L (3.5-5.1) Chloride Level 103 mmol/L (98-107) Carbon Dioxide Level 25 mmol/L (21-32) Anion Gap 8 (6-14) Blood Urea Nitrogen 13 mg/dL (8-26) Creatinine 0.8 mg/dL (0.7-1.3) Estimated GFR (Cockcroft-Gault) 98.3 BUN/Creatinine Ratio 16 (6-20) Glucose Level 140 mg/dL (70-99) H Calcium Level 7.5 mg/dL (8.5-10.1) L Total Bilirubin 0.9 mg/dL (0.2-1.0) Aspartate Amino Transferase (AST) 172 U/L (15-37) H Alanine Aminotransferase (ALT) 331 U/L (16-63) H Alkaline Phosphatase 78 U/L (46-116) Total Protein 6.4 g/dL (6.4-8.2) Albumin 2.2 g/dL (3.4-5.0) L Albumin/Globulin Ratio 0.5 (1.0-1.7) L Glucose (Fingerstick) 124 mg/dL (70-99) H 82 mg/dL (70-99) 96 mg/dL (70-99) Test 07/10/21 11:37 Glucose (Fingerstick) 132 mg/dL (70-99) H Laboratory Tests 07/09/21 16:58 Laboratory Tests 07/09/21 16:58 ASSESSMENT/PLAN ASSESSMENT/PLAN 1. Acute respiratory failure due to acute COVID infection 2. Encephalopathy; CT head without acute findings 3. Bilateral toe ulcers with eschar present. ?PAD 4. Elevated LFTs 5. Elevated d-dimer 6. Hypertension MALAIKA HOLLIS MD 07/11/21 1118: CARDIAC CONSULT PHYSICAL EXAM PHYSICAL EXAM Patient is alert and oriented to self only. He is frail and emaciated. Normal heart tones. LUngs clear Soft abd 2+ femoral pulses, non-palp popliteal pulses. ASSESSMENT/PLAN ASSESSMENT/PLAN Late entry for 07/10/2021 Patient seen and examined. I agree with above nurse practitioner note. We will plan for a bilateral lower extremity angiogram and runoff given his arterial studies suggesting occlusive disease. Continue treatment for his encephalopathy and underlying medical issues. Supportive care. DEEPALI BRAR APRN Jul 10, 2021 16:41 MALAIKA HOLLIS MD Jul 11, 2021 11:18
--- NOTE | 2021-07-11 01:34 | RAD ---
Bilateral lower extremity arterial Doppler dated 07/10/2021. COMPARISON: None. CLINICAL INDICATION: Peripheral artery disease. Decreased pulses. FINDINGS: Grayscale, color-flow and spectral waveform analysis performed to include the arterial tree of the bi lateral lower extremity. On the right, there is flow within the common femoral artery and superficial femoral artery with monophasic low velocity flow the popliteal artery and posterior tibial artery. T here is no detectable flow within the peroneal artery or anterior tibial artery of the right calf. Th ere is some parvus tardus flow in the dorsalis pedis. On the left, there is triphasic flow in the common femoral artery and superficial femoral artery. No detectable flow within the left popliteal artery with monophasic low velocity flow of the proximal po sterior tibial artery and distal posterior tibial artery and peroneal artery. No detectable flow with in the anterior tibial artery or dorsalis pedis. IMPRESSION: 1. Occlusion of the left popliteal artery and left anterior tibial artery with monophasic flow of the left posterior tibial artery and peroneal artery. Findings consistent with severe distal disease. 2. There is also low velocity monophasic flow within the right popliteal artery and arteries of right calf with probable occlusion of the peroneal artery and anterior tibial artery and the right. 3. No evidence of hemodynamically significant proximal stenosis. Electronically signed by: Wallace Camara MD (07/11/2021 1:32 AM) [facility]
[2021-07-11 03:05] VITALS: BP 149/80
[2021-07-11] MEDS: PANTOPRAZOLE IV PUSH 40 MG VIAL. IVP SCH (06:20)
[2021-07-11] MEDS: IV DEXTROSE 5%-LACT RINGERS 1,000 ML IV SCH ×2 (06:20→17:10)
[2021-07-11 06:44] LABS: CHOLESTEROL/HDL RATIO 8.1
[2021-07-11 07:00] VITALS: BP 169/85
[2021-07-11] MEDS: INSULIN LISPRO 300 UNITS/3 ML VIAL. SQ SCH ×3 (08:00→17:00)
[2021-07-11] MEDS: ASCORBIC ACID 1,000 MG TABLET PO SCH ×3 (08:49→21:13)
[2021-07-11] MEDS: ZINC SULFATE 220 MG CAPSULE. PO SCH (08:49)
[2021-07-11] MEDS: THIAMINE 100 MG TABLET. PO SCH (08:49)
--- NOTE | 2021-07-11 10:00 | NUR ---
Wound/Ostomy Care Wound Type/Assessment: Patient seen per wound care follow up. See wound assessment. Patient has unstageable PU's to right heel and left heel, right plantar toes, and left plantar toes/foot most likely due to covid infection causing blow flow disruption. D-dimer is now 8.27 The heel wounds are now eschar covered, the toes are blackened and purple, dusky, and with a small amount of pain. I am unable to palpate a dorsal pulse on either foot. The scrotum/penis and buttocks are all now resolved wtih minimal peeling skin but remains blanchable. All wounds cleansed, assessed, and measured. The buttocks and scrotum wounds are cleansed, assessed, and measured. Treatment Recommendations/Plan: Recommendations to continue using cream to buttocks/scrotum, offloading, and turning to ensure this area remains closed. [place] daily with Betadine to all toes/heels bilaterally. Continue to wear Rooke boots as prescribed. Education provided: Patient educated on wound care, PU treatment and management. Patient v/u understanding. Offloading surface/device: Rooke boots placed back on patient, patient turned to right side using wedge, cream applied and brief removed as patient has catheter in place. Recommended Referrals/Tests: patient has Podiatry, cardiology, and pulmonology has been consulted. Discharge Recommendations for dressings: Dressing change instructions left in room. No other wounds noted. Bed lowered and call light in reach. . Wound care will follow up on 07/18/21.
[2021-07-11 11:00] VITALS: BP 142/89
--- NOTE | 2021-07-11 11:43 | PDOC ---
DEEPALI BRAR WAITER/WAITRESS COUNTER 07/11/21 1143: CARDIO Progress Notes Date and Time Date of Service 07/11/21 Time of Evaluation 1130 Subjective Subjective: No Chest Pain, No shortness of breath, No Palpitations Vitals Vitals Vital Signs Date Time Temp Pulse Resp B/P (MAP) Pulse Ox O2 Delivery O2 Flow Rate FiO2 07/11/21 08:00 Room Air 07/11/21 07:00 96.3 73 20 169/85 (113) 96 96.3 07/10/21 20:00 2.0 Weight Weight [ ] Input and Output Intake and Output Intake and Output 07/11/21 06:59 Intake Total 170 ml Output Total 2050 ml Balance -1880 ml Intake Oral 170 ml Output Urine Total 2050 ml # Bowel Movements 1 Laboratory Labs Laboratory Tests Test 07/10/21 17:53 07/11/21 00:13 07/11/21 05:10 07/11/21 05:46 Glucose (Fingerstick) 142 mg/dL (70-99) 95 mg/dL (70-99) 92 mg/dL (70-99) Triglycerides Level 161 mg/dL (0-150) Cholesterol Level 226 mg/dL (0-200) LDL Cholesterol, Calculated 166 mg/dL (0-100) VLDL Cholesterol, Calculated 32 mg/dL (0-40) Non-HDL Cholesterol Calculated 198 mg/dL (0-129) HDL Cholesterol 28 mg/dL (40-60) Cholesterol/HDL Ratio 8.1 Test 07/11/21 08:25 07/11/21 11:07 Glucose (Fingerstick) 96 mg/dL (70-99) 142 mg/dL (70-99) Physical Exam HEENT: Neck Supple W Full Motion Chest: Symmetric LUNGS: Clear to Auscultation Heart: RRR Abdomen: Soft N/T Extremities: Other (2+ femoral pulses, non-palp popliteal pulses. Bilateral toes with eschar. Rook boots intact ) Neurology: alert, follow commands, confused Assessment Assessment 1. Acute respiratory failure due to acute COVID infection 2. Encephalopathy; CT head without acute findings 3. PAD, bilateral toe ulcers with eschar present. LE duplex with evidence of severe distal disease bilaterally 4. Elevated LFTs 5. Elevated d-dimer 6. Hypertension; controlled overall Recommendations Add ASA Lipids Will plan for a bilateral lower extremity angiogram and runoff given his arterial studies suggesting occlusive disease. On schedule for Justicifation of Admission Dx: Justifications for Admission: Justification of Admission Dx: Yes Comments: COVID PAD with ischemic toes MALAIKA HOLLIS MD 07/12/211841: CARDIO Progress Notes Plan Plan Late entry for 07/11/2021 Patient seen and examined. Agree with above nurse practitioner note. Discussed with Dr. Griffin. Patient will need ultimately some medical insurance to have outpatient care. We will plan for a aortogram with runoff on . DEEPALI BRAR APRN Jul 11, 2021 11:43 MALAIKA HOLLIS MD Jul 12, 2021 18:42
--- NOTE | 2021-07-11 11:58 | PDOC ---
[employer] PROGRESS NOTE Date of Service DOS: DATE: 07/11/21 TIME: 11:56 Chief Complaint Chief Complaint confusion and lethargy, AMS acute COVID-19 infection Acute infectious and metabolic encephalopathy IVORY due to vasomotor nephropathyimproved Lactic acidemia dysphagia malnutrition, heel erythema on admit, poor nail care and dystrophic nails PAD - confirmed on arterial dopplers, may have COVID toes History of Present Illness History of Present Illness 60-year-old male that presented 06/29/2021 via [facility] with decreased level of consciousness. Most of the history was obtained via EMS and patient's friend Reese [phone], who states that patient has been sick since about June 22 per Reese, he states that they both had cough cold headache sinus type pain. Per Reese's report patient is okay during the day and very alert and orientated and at night he has a decreased alertness. Patient is unable to help with exam when asked questions he does deny any past medical history, surgeries, or any other health conditions. Reese who is his roommate collaborates any information gotten from the patient. Accu-Chek per EMS was 250, room air s at in the room was 88 to 90%. 07/07 not much improved, about the same. cont current. PULM following. we have no clinimix, cont D5 fluid, 07/08, more alert, can try ST again, if able to sit up, still very weak 07/09, much more alert, bedside swallow of water ok, sits upright, much stronger, will try clears if able, ST to follow. toes are worsening, now hannah kaur consult podiatry to follow, 07/10: More alert. Working with speech and swallowing today. Off O2. Less confused. Bilateral toe ulcers assessed by podiatry today. 07/11: More alert, eating. Arterial Doppler was left popliteal and severe distal disease bilaterally. Still has a little bit of a cough. Less confused today. Vitals/I&O Vitals/I&O: Vital Signs Date Time Temp Pulse Resp B/P (MAP) Pulse Ox O2 Delivery O2 Flow Rate FiO2 07/11/21 08:00 Room Air 07/11/21 07:00 96.3 73 20 169/85 (113) 96 96.3 07/10/21 20:00 2.0 I & O 07/10/21 07/10/21 07/11/21 15:00 23:00 07:00 Intake Total 120 ml 50 ml Output Total 500 ml 1150 ml 400 ml Balance -500 ml -1030 ml -350 ml Physical Exam Physical Exam: lethargic and weak General: Alert, Oriented X3, Cooperative, No acute distress Heart: Regular rate Lungs: Clear Abdomen: Normal bowel sounds Extremities: No clubbing, No edema, Other (black skin to toes, looks necrotic ) Skin: Other (toes blackend, very poor nail care, dystrophic nails and fungus) Labs Labs: Laboratory Tests Test 07/10/21 17:53 07/11/21 00:13 07/11/21 05:10 07/11/21 05:46 Glucose (Fingerstick) 142 mg/dL (70-99) 95 mg/dL (70-99) 92 mg/dL (70-99) Triglycerides Level 161 mg/dL (0-150) Cholesterol Level 226 mg/dL (0-200) LDL Cholesterol, Calculated 166 mg/dL (0-100) VLDL Cholesterol, Calculated 32 mg/dL (0-40) Non-HDL Cholesterol Calculated 198 mg/dL (0-129) HDL Cholesterol 28 mg/dL (40-60) Cholesterol/HDL Ratio 8.1 Test 07/11/21 08:25 07/11/21 11:07 Glucose (Fingerstick) 96 mg/dL (70-99) 142 mg/dL (70-99) Assessment and Plan Assessmemt and Plan Problems Medical Problems: (1) Dehydration Status: Acute (2) Mental status alteration Status: Acute (3) Pneumonia Status: Acute Comment Review of Relevant I have reviewed the following items amanda (where applicable) has been applied. Justifications for Admission Other Justification COVID-19 positive test (U07.1, COVID-19) with Acute Pneumonia (J12.89, Other viral pneumonia) (If respiratory failure or sepsis present, add as separate assessment) SIMONE ARGUELLO MD Jul 11, 2021 11:58
[2021-07-11 15:00] VITALS: BP 148/83
--- NOTE | 2021-07-11 15:17 | NUR ---
SS following up with discharge planning. SS reviewed pt chart and discussed with pt RN. Pt is currently on room air. COVID19 positive. PO diet. PT/OT following. Pt more alert today. Self pay. Med Assist following. Discharge plan is currently to home when medically ready for discharge. SS will continue to follow for discharge planning.
[2021-07-11] MEDS: ASPIRIN ENTERIC COATED 81 MG TABLET.DR. PO SCH (17:10)
[2021-07-11] MEDS: ENOXAPARIN 40 MG/0.4 ML SYRINGE. SQ SCH (17:10)
[2021-07-11 19:00] VITALS: BP 145/87
[2021-07-11] MEDS: ATORVASTATIN CALCIUM 20 MG TABLET PO SCH (21:13)
[2021-07-11 23:00] VITALS: BP 145/84
[2021-07-12 03:00] VITALS: BP 153/93
[2021-07-12 05:16] LABS: ALBUMIN 2.2 g/dL (3.4-5.0); ALBUMIN/GLOBULIN RATIO 0.6 (1.0-1.7); CALCIUM 7.6 mg/dL (8.5-10.1); CREATININE 0.8 mg/dL (0.7-1.3); GFR 98.3; POTASSIUM 3.6 mmol/L (3.5-5.1); TOTAL BILIRUBIN 1.1 mg/dL (0.2-1.0); TOTAL PROTEIN 5.8 g/dL (6.4-8.2)
[2021-07-12] MEDS: PANTOPRAZOLE IV PUSH 40 MG VIAL. IVP SCH (06:26)
[2021-07-12] MEDS: IV DEXTROSE 5%-LACT RINGERS 1,000 ML IV SCH (06:27)
[2021-07-12 07:00] VITALS: BP 158/90
[2021-07-12] MEDS: INSULIN LISPRO 300 UNITS/3 ML VIAL. SQ SCH ×3 (08:00→17:00)
[2021-07-12] MEDS: ASPIRIN ENTERIC COATED 81 MG TABLET.DR. PO SCH (08:58)
[2021-07-12] MEDS: THIAMINE 100 MG TABLET. PO SCH (08:59)
[2021-07-12] MEDS: ASCORBIC ACID 1,000 MG TABLET PO SCH ×3 (08:59→20:24)
[2021-07-12] MEDS: ZINC SULFATE 220 MG CAPSULE. PO SCH (08:59)
[2021-07-12 11:00] VITALS: BP 131/73
--- NOTE | 2021-07-12 11:07 | PDOC ---
[employer] PROGRESS NOTE Date of Service DOS: DATE: 07/12/21 TIME: 10:59 Chief Complaint Chief Complaint confusion and lethargy, AMS acute COVID-19 infection Acute infectious and metabolic encephalopathy IVORY due to vasomotor nephropathyimproved Lactic acidemia dysphagia malnutrition, heel erythema on admit, poor nail care and dystrophic nails PAD - confirmed on arterial dopplers, may have COVID toes History of Present Illness History of Present Illness Mr Lambert is a 60-year-old male that presented 06/29/2021 via [facility] with decreased level of consciousness. Most of the history was obtained via EMS and patient's friend Reese [phone], who states that patient has been sick since about June 22 per Reese, he states that they both had cough cold heada patrice sinus type pain. Per Reese's report patient is okay during the day and very alert and orientated and at night he has a decreased alertness. Patient is unable to help with exam when asked questions he does deny any past medical history, surgeries, or any other health conditions. Reese who is his roommate collaborates any information gotten from the patient. Accu-Chek per EMS was 250, room air sat in the room was 88 to 90%. 07/07: not much improved, about the same. cont current. PULM following. we have no clinimix, cont D5 fluid, 07/08: more alert, can try ST again, if able to sit up, still very weak 07/09: much more alert, bedside swallow of water ok, sits upright, much stronger, will try clears if able, ST to follow. toes are worsening, now black, hannah consult podiatry to follow, 07/10: More alert. Working with speech and swallowing today. Off O2. Less confused. Bilateral toe ulcers assessed by podiatry today. 07/11: More alert, eating. Arterial Doppler was left popliteal and severe distal disease bilaterally. Still has a little bit of a cough. Less confused today. 07/12: Eating reasonably well. Tentative plans for angiogram for consideration of limb salvage bilateral feet tomorrow. Discussed with cardiology. He will need significant follow-up care likely eventual amputations. Vitals/I&O Vitals/I&O: Vital Signs Date Time Temp Pulse Resp B/P (MAP) Pulse Ox O2 Delivery O2 Flow Rate FiO2 07/12/21 08:20 Nasal Cannula 2.0 07/12/21 07:00 97.0 86 18 158/90 (112) 95 97.0 I & O 07/11/21 07/11/21 07/12/21 15:00 23:00 07:00 Intake Total 420 ml Output Total 975 ml Balance -555 ml Physical Exam Physical Exam: lethargic and weak General: Alert, Oriented X3, Cooperative, No acute distress Heart: Regular rate Lungs: Clear Abdomen: Normal bowel sounds Extremities: No clubbing, No edema, Other (black skin to toes, looks necrotic ) Skin: Other (toes blackend, very poor nail care, dystrophic nails and fungus) Labs Labs: Laboratory Tests Test 07/11/21 11:07 07/11/21 16:48 07/11/21 20:47 07/12/21 00:08 Glucose (Fingerstick) 142 mg/dL (70-99) 112 mg/dL (70-99) 93 mg/dL (70-99) 95 mg/dL (70-99) Test 07/12/21 04:00 07/12/21 08:52 Sodium Level 141 mmol/L (136-145) Potassium Level 3.6 mmol/L (3.5-5.1) Chloride Level 105 mmol/L (98-107) Carbon Dioxide Level 29 mmol/L (21-32) Anion Gap 7 (6-14) Blood Urea Nitrogen 12 mg/dL (8-26) Creatinine 0.8 mg/dL (0.7-1.3) Estimated GFR (Cockcroft-Gault) 98.3 BUN/Creatinine Ratio 15 (6-20) Glucose Level 99 mg/dL (70-99) Calcium Level 7.6 mg/dL (8.5-10.1) Total Bilirubin 1.1 mg/dL (0.2-1.0) Aspartate Amino Transf (AST/SGOT) 95 U/L (15-37) Alanine Aminotransferase (ALT/SGPT) 219 U/L (16-63) Alkaline Phosphatase 77 U/L (46-116) Total Protein 5.8 g/dL (6.4-8.2) Albumin 2.2 g/dL (3.4-5.0) Albumin/Globulin Ratio 0.6 (1.0-1.7) Glucose (Fingerstick) 103 mg/dL (70-99) Assessment and Plan Assessmemt and Plan Problems Medical Problems: (1) Dehydration Status: Acute (2) Mental status alteration Status: Acute (3) Pneumonia Status: Acute Comment Review of Relevant I have reviewed the following items amanda (where applicable) has been applied. Medications: Current Medications Medications (Trade) Dose Ordered Sig/Vicente Route PRN Reason Start Time Stop Time Status Last Admin Dose Admin Aspirin (Ecotrin) 81 mg [id number] PO 07/11/21 15:00 07/12/21 08:58 Atorvastatin Calcium (Lipitor) 20 mg QHS PO 07/11/21 21:00 07/11/21 21:13 Justifications for Admission Other Justification COVID-19 positive test (U07.1, COVID-19) with Acute Pneumonia (J12.89, Other viral pneumonia) (If respiratory failure or sepsis present, add as separate assessment) SIMONE ARGUELLO MD Jul 12, 2021 11:07
--- NOTE | 2021-07-12 12:06 | PDOC ---
DEEPALI BRAR COMMISSIONED SALES ASSOCIATE 07/12/21 1206: CARDIO Progress Notes Date and Time Date of Service 07/12/21 Time of Evaluation 1120 Subjective Subjective: No Chest Pain, No shortness of breath, No Palpitations Vitals Vitals Vital Signs Date Time Temp Pulse Resp B/P (MAP) Pulse Ox O2 Delivery O2 Flow Rate FiO2 07/12/21 08:20 Nasal Cannula 2.0 07/12/21 07:00 97.0 86 18 158/90 (112) 95 97.0 Weight Weight [ ] Input and Output Intake and Output Intake and Output 07/12/21 07:00 Intake Total 420 ml Output Total 975 ml Balance -555 ml Intake Oral 420 ml Output Urine Total 975 ml Laboratory Labs Laboratory Tests Test 07/11/21 16:48 07/11/21 20:47 07/12/21 00:08 07/12/21 04:00 Glucose (Fingerstick) 112 mg/dL (70-99) 93 mg/dL (70-99) 95 mg/dL (70-99) Sodium Level 141 mmol/L (136-145) Potassium Level 3.6 mmol/L (3.5-5.1) Chloride Level 105 mmol/L (98-107) Carbon Dioxide Level 29 mmol/L (21-32) Anion Gap 7 (6-14) Blood Urea Nitrogen 12 mg/dL (8-26) Creatinine 0.8 mg/dL (0.7-1.3) Estimated GFR (Cockcroft-Gault) 98.3 BUN/Creatinine Ratio 15 (6-20) Glucose Level 99 mg/dL (70-99) Calcium Level 7.6 mg/dL (8.5-10.1) Total Bilirubin 1.1 mg/dL (0.2-1.0) Aspartate Amino Transf (AST/SGOT) 95 U/L (15-37) Alanine Aminotransferase (ALT/SGPT) 219 U/L (16-63) Alkaline Phosphatase 77 U/L (46-116) Total Protein 5.8 g/dL (6.4-8.2) Albumin 2.2 g/dL (3.4-5.0) Albumin/Globulin Ratio 0.6 (1.0-1.7) Test 07/12/21 08:52 07/12/21 11:58 Glucose (Fingerstick) 103 mg/dL (70-99) 103 mg/dL (70-99) Physical Exam HEENT: Neck Supple W Full Motion Chest: Symmetric LUNGS: Clear to Auscultation Heart: RRR Abdomen: Soft N/T Extremities: Other ( Bilateral toes with eschar present. Rook boots intact ) Neurology: alert, follow commands, confused Assessment Assessment 1. Acute respiratory failure due to acute COVID infection 2. Encephalopathy; CT head without acute findings 3. PAD, bilateral toe ulcers with eschar present. LE duplex with evidence of severe distal disease bilaterally 4. Hypertension; mildly elevated Recommendations ASA, statin therapy Continue Rook boots NPO p MN for bilateral LE angiogram with runoff tomorrow Supportive care Justicifation of Admission Dx: Justifications for Admission: Justification of Admission Dx: Yes MALAIKA HOLLIS MD 07/12/21 9338: CARDIO Progress Notes Plan Plan Patient seen and examined. Agree with above nurse practitioner note. Supportive care plan for angiogram. DEEPALI BRAR APRN Jul 12, 2021 12:06 MALAIKA HOLLIS MD Jul 12, 2021 18:48
[2021-07-12] MEDS: METOPROLOL TART IMMED RELEASE 25 MG TABLET. PO SCH ×2 (12:37→20:24)
--- NOTE | 2021-07-12 12:51 | NUR ---
CATHETER DISCONTINUED AT 1230. PT HAS NOT URINATED AT THIS TIME.
[2021-07-12 15:00] VITALS: BP 139/85
--- NOTE | 2021-07-12 15:26 | NUR ---
SS following up with discharge planning. SS reviewed pt chart and discussed with pt RN. Pt is currently on room air with two liters of oxygen PRN. More alert. COVID19 positive. Pt NPO for LE Angiogram with Runoff tomorrow. PT/OT following due to weakness. Self pay. Med Assist following. Discharge plan is currently to home when medically ready for discharge. SS will continue to follow for discharge planning.
--- NOTE | 2021-07-12 15:30 | NUR ---
SPOKE WITH PT MOTHER, NAOMI FRANCISCO, VIA TELEPHONE TO GET VERBAL CONSENT FOR FEMORAL RUN-OFF TOMORROW. CONSENT CONFIRMED BY Hanny RAMON RN.
[2021-07-12] MEDS: ENOXAPARIN 40 MG/0.4 ML SYRINGE. SQ SCH (17:14)
[2021-07-12 19:00] VITALS: BP 135/86
[2021-07-12] MEDS: ATORVASTATIN CALCIUM 20 MG TABLET PO SCH (20:24)
[2021-07-12 23:00] VITALS: BP 142/87
--- NOTE | 2021-07-12 23:55 | NUR ---
patient hasn't voided since Katz removed at 12p today. patient states that he does not feel the need to void at this time. Bladder scan 380. Will monitor and re-bladder scan at 0300 if patient has not voided yet.
[2021-07-13] VITALS (10 sets, daily range): BP systolic 140–175; BP diastolic 80–95
[2021-07-13] MEDS: PANTOPRAZOLE IV PUSH 40 MG VIAL. IVP SCH (05:31)
[2021-07-13] MEDS: ASPIRIN ENTERIC COATED 81 MG TABLET.DR. PO SCH (08:00)
[2021-07-13] MEDS: INSULIN LISPRO 300 UNITS/3 ML VIAL. SQ SCH ×3 (08:00→17:00)
[2021-07-13] MEDS ORDERED: IODIXANOL 320 MG/ML 100 ML VIAL. ONE (08:02)
[2021-07-13] MEDS: ZINC SULFATE 220 MG CAPSULE. PO SCH (09:00)
[2021-07-13] MEDS: THIAMINE 100 MG TABLET. PO SCH (09:00)
[2021-07-13] MEDS: METOPROLOL TART IMMED RELEASE 25 MG TABLET. PO SCH ×2 (09:00→20:29)
[2021-07-13] MEDS: ASCORBIC ACID 1,000 MG TABLET PO SCH ×3 (09:00→20:28)
[2021-07-13] MEDS ORDERED: fentaNYL PF VIAL 100 MCG/2 ML VIAL ONE (12:46)
[2021-07-13] MEDS ORDERED: MIDAZOLAM HCL/PF 2 MG/2 ML VIAL. ONE (12:46)
[2021-07-13] MEDS ORDERED: HEPARIN for IV BOLUS 10,000 UNIT/10 ML VIAL. ONE (12:52)
[2021-07-13] MEDS ORDERED: MIDAZOLAM HCL/PF 2 MG/2 ML VIAL. IV ONE (13:00)
[2021-07-13] MEDS ORDERED: IODIXANOL 320 MG/ML 100 ML VIAL. IART ONE (13:00)
[2021-07-13] MEDS ORDERED: fentaNYL PF VIAL 100 MCG/2 ML VIAL IV ONE (13:00)
[2021-07-13] MEDS ORDERED: LIDOCAINE 1% Multi-Dose 20 ML VIAL. INJ ONE (13:00)
[2021-07-13] MEDS ORDERED: VERAPAMIL 5 MG/2 ML VIAL. ONE (13:12)
[2021-07-13] MEDS ORDERED: NITROGLYCERIN 200 MCG/2 ML SYRINGE FOR CATH/VASC LAB. IART ONE (13:30)
[2021-07-13] MEDS ORDERED: HEPARIN for IV BOLUS 10,000 UNIT/10 ML VIAL. IART ONE (13:30)
[2021-07-13] MEDS ORDERED: VERAPAMIL 5 MG/2 ML VIAL. IART ONE (13:30)
--- NOTE | 2021-07-13 14:11 | NUR ---
NURSING PATIENT RETURNS FROM VASCULAR LAB. RADIAL APPROACH FOR FEM RUNOFF. NO INTERVENTION WAS POSSIBLE, PT RETURNS TO FLOOR, WILL AWAIT VASCULAR CONSULT. TR BAND IN PLACE TO (R) WRIST, NO VISIBLE BLEEDING OR OOZE. HE IS DROWSY, BUT AROUSABLE. FREQUENT VS AND TR AIR REMOVAL STARTS AT THIS TIME.
--- NOTE | 2021-07-13 14:19 | NUR ---
SS following up with discharge planning. SS reviewed pt chart and discussed with pt RN. Pt is currently on room air. COVID19 positive. PO diet. Pt had angiogram with run off today. PT/OT following due to weakness. Self pay. Med Assist following. Not medically ready. Discharge plan is currently to home when medically ready for discharge. SS will continue to follow for discharge planning.
--- NOTE | 2021-07-13 16:23 | PDOC ---
[employer] PROGRESS NOTE Date of Service DOS: DATE: 07/13/21 TIME: 16:22 Chief Complaint Chief Complaint confusion and lethargy, AMS acute COVID-19 infection Acute infectious and metabolic encephalopathy IVORY due to vasomotor nephropathyimproved Lactic acidemia dysphagia malnutrition, heel erythema on admit, poor nail care and dystrophic nails PAD - confirmed on arterial dopplers, may have COVID toes History of Present Illness History of Present Illness Mr Lambert is a 60-year-old male that presented 06/29/2021 via [facility] with decreased level of consciousness. Most of the history was obtained via EMS and patient's friend Reese [phone], who states that patient has been sick since about June 22 per Reese, he states that they both had cough cold heada patrice sinus type pain. Per Reese's report patient is okay during the day and very alert and orientated and at night he has a decreased alertness. Patient is unable to help with exam when asked questions he does deny any past medical history, surgeries, or any other health conditions. Reese who is his roommate collaborates any information gotten from the patient. Accu-Chek per EMS was 250, room air sat in the room was 88 to 90%. 07/07: not much improved, about the same. cont current. PULM following. we have no clinimix, cont D5 fluid, 07/08: more alert, can try ST again, if able to sit up, still very weak 07/09: much more alert, bedside swallow of water ok, sits upright, much stronger, will try clears if able, ST to follow. toes are worsening, now black, hannah consult podiatry to follow, 07/10: More alert. Working with speech and swallowing today. Off O2. Less confused. Bilateral toe ulcers assessed by podiatry today. 07/11: More alert, eating. Arterial Doppler was left popliteal and severe distal disease bilaterally. Still has a little bit of a cough. Less confused today. 07/12: Eating reasonably well. Tentative plans for angiogram for consideration of limb salvage bilateral feet tomorrow. Discussed with cardiology. He will need significant follow-up care likely eventual amputations. 07/13: N.p.o. for angiogram today with bilateral SFA occlusive disease and left popliteal disease with left posterior tibial artery with some flow otherwise occlusive disease per cardiology. Discussed vascular surgery consultation for consideration of definitive revascularization with likely bilateral transmetatarsal amputations. Still with a little bit of a cough. Shortness of breath Vitals/I&O Vitals/I&O: Vital Signs Date Time Temp Pulse Resp B/P (MAP) Pulse Ox O2 Delivery O2 Flow Rate FiO2 07/13/21 15:31 95 170/95 (120) 95 Nasal Cannula 2.0 07/13/21 15:17 16 07/13/21 11:00 97.7 97.7 I & O 07/12/21 07/12/21 07/13/21 15:00 23:00 07:00 Intake Total 240 ml 240 ml Output Total 150 ml Balance 240 ml 90 ml Physical Exam Physical Exam: lethargic and weak General: Alert, Oriented X3, Cooperative, No acute distress Heart: Regular rate Lungs: Clear Abdomen: Normal bowel sounds Extremities: No clubbing, No edema, Other (black skin to toes, looks necrotic ) Skin: Other (toes blackend, very poor nail care, dystrophic nails and fungus) Labs Labs: Laboratory Tests Test 07/12/21 16:54 07/12/21 21:29 07/13/21 08:30 07/13/21 11:58 Glucose (Fingerstick) 122 mg/dL (70-99) 117 mg/dL (70-99) 101 mg/dL (70-99) 106 mg/dL (70-99) Assessment and Plan Assessmemt and Plan Problems Medical Problems: (1) Dehydration Status: Acute (2) Mental status alteration Status: Acute (3) Pneumonia Status: Acute Comment Review of Relevant I have reviewed the following items amanda (where applicable) has been applied. Medications: Current Medications Medications (Trade) Dose Ordered Sig/Vicente Route PRN Reason Start Time Stop Time Status Last Admin Dose Admin Heparin Sodium/ Sodium Chloride (HEPARIN for ARTERIAL LINE FLUSH) 1,000 unit 1X ONCE IART 07/13/21 13:00 07/13/21 13:01 DC 07/13/21 13:00 Heparin Sodium/ Sodium Chloride (HEPARIN for ARTERIAL LINE FLUSH) 1,000 unit 1X ONCE IART 07/13/21 13:00 07/13/21 13:01 DC 07/13/21 13:00 Midazolam HCl (Versed) 2 mg 1X ONCE IV 07/13/21 13:00 07/13/21 13:01 DC 07/13/21 13:20 Fentanyl Citrate (Fentanyl 2ml Vial) 100 mcg 1X ONCE IV 07/13/21 13:00 07/13/21 13:01 DC 07/13/21 13:20 Iodixanol (Visipaque 320) 100 ml 1X ONCE IART 07/13/21 13:00 07/13/21 13:01 DC 07/13/21 13:50 Lidocaine HCl (Lidocaine 1% 20ml Vial) 20 ml 1X ONCE INJ 07/13/21 13:00 07/13/21 13:01 DC 07/13/21 13:22 Nitroglycerin (Nitroglycerin) 200 mcg 1X ONCE IART 07/13/21 13:30 07/13/21 13:35 DC 07/13/21 13:23 Verapamil HCl (Verapamil) 2.5 mg 1X ONCE IART 07/13/21 13:30 07/13/21 13:35 DC 07/13/21 13:23 Heparin Sodium (Porcine) (Heparin Sodium) 2,500 unit 1X ONCE IART 07/13/21 13:30 07/13/21 13:35 DC 07/13/21 13:30 Justifications for Admission Other Justification COVID-19 positive test (U07.1, COVID-19) with Acute Pneumonia (J12.89, Other viral pneumonia) (If respiratory failure or sepsis present, add as separate assessment) SIMONE ARGUELLO MD Jul 13, 2021 16:23
[2021-07-13] MEDS: ENOXAPARIN 40 MG/0.4 ML SYRINGE. SQ SCH (17:20)
--- NOTE | 2021-07-13 17:59 | CARD ---
MR#: [id number] Date of Study: 07/13/2021 Ordering Physician: MALAIKA HOLLIS, Referring Physician: MALAIKA HOLLIS, Tech: Shu Sethi RT(R) APPROVED REPORT Patient StatusIN-PATIENT Filter Assembler: Shu Sethi RT(R) Procedure(s) performed: FL TIME: 7.3 MIN DOSE: 26 GYCM2 CONTRAST: 55 ML MODERATE SEDATION: 50 MINUTES Abdominal aortogram with ileofemoral run-off 3rd order catheter [id number] INDICATION FOR PROCEDURE The indication(s) include : Bilateral gangrene. PROCEDURE NARRATIVE Clinical information: 60-year-old male presented to the hospital in the setting of coronavirus pneumonia and ultimately als o found to have severe PAD with gangrene involving both lower extremities. Procedure details: After appropriate informed consent the right wrist was prepped and draped in usual sterile fashion. Next a 6 [place] sheath was placed in the right radial artery. Diagnostic aortogram was then performe d with a pigtail catheter. Next a multipurpose catheter was then used engage the right and left comm on iliac, external iliac, common femoral arteries and superficial femoral arteries. Digital subtract ion angiography was performed of the bilateral lower extremities with runoff. At case completion the right radial sheath was removed and hemostasis was achieved via a Terumo radial band. Findings: Aorta has a mild diffuse tapering of up to 30% in the mid to distal segment. Bilateral renal arteries are patent without any obvious stenosis. Bilateral common iliacs did not have any significant disease Bilateral external iliac arteries do not have any significant disease Bilateral internal iliac arteries did not have any significant disease Right common femoral artery has no significant disease Right profunda has no significant disease Right SFA has a distal occlusion at the level of the abductor canal Right popliteal artery is occluded Right tibioperoneal trunk is occluded Right posterior tibial artery is the dominant runoff to the foot and reconstitutes via geniculate col laterals in the proximal segment. Right peroneal artery has moderate diffuse distal subtotal occlusion Right anterior tibial artery is occluded Left common femoral artery has no significant disease Left profunda has no significant disease Left superficial femoral artery has a distal occlusion. Left popliteal artery is occluded Left tibioperoneal trunk is occluded Left peroneal artery is occluded Left posterior tibial artery provides the runoff to the distal foot and is reconstituted at the proxi mal to mid segment. Left anterior tibial artery is occluded Conclusion 1. Severe bilateral SFA/popliteal segment disease 2. Case discussed with vascular surgery service. Considerations would include endovascular revascul arization via a pedal approach versus short segment vein bypass. Ultimately this will be determined based on the viability of a transmetatarsal versus below-knee amputation. Recommendations Aggressive Medical Therapy Signed by : Malaika Hollis, Electronically Approved : 07/13/2021 17:59:17
[2021-07-13] MEDS: ATORVASTATIN CALCIUM 20 MG TABLET PO SCH (20:28)
[2021-07-14 02:41] VITALS: BP 141/89
[2021-07-14 07:00] VITALS: BP 148/93
[2021-07-14] MEDS: INSULIN LISPRO 300 UNITS/3 ML VIAL. SQ SCH ×3 (08:00→17:00)
[2021-07-14 08:17] LABS: BASO # 0.1 x10^3/uL (0.0-0.2); BASO % 1 % (0-3); EOS # 0.1 x10^3/uL (0.0-0.7); EOS % 1 % (0-3); HEMATOCRIT 43.2 % (39.0-53.0); HEMOGLOBIN 14.4 g/dL (13.0-17.5); LYMPH # 1.6 x10^3/uL (1.0-4.8); LYMPH % 15 % (24-48); MEAN CORPUSCULAR HEMOGLOBIN 31 pg (25-35); MEAN CORPUSCULAR HGB CONC 33 g/dL (31-37); MEAN CORPUSCULAR VOLUME 93 fL (79-100); MONO # 0.7 x10^3/uL (0.0-1.1); MONO % 7 % (0-9); NEUT # 8.4 x10^3/uL (1.8-7.7); NEUT % 77 % (31-73); PLATELET COUNT 197 x10^3/uL (140-400); RED BLOOD COUNT 4.65 x10^6/uL (4.30-5.70); RED CELL DISTRIBUTION WIDTH 13.6 % (11.5-14.5); WHITE BLOOD COUNT 10.9 x10^3/uL (4.0-11.0)
[2021-07-14] MEDS: PANTOPRAZOLE IV PUSH 40 MG VIAL. IVP SCH (08:39)
[2021-07-14] MEDS: ASPIRIN ENTERIC COATED 81 MG TABLET.DR. PO SCH (08:40)
[2021-07-14] MEDS: THIAMINE 100 MG TABLET. PO SCH (08:40)
[2021-07-14] MEDS: ZINC SULFATE 220 MG CAPSULE. PO SCH (08:40)
[2021-07-14] MEDS: ASCORBIC ACID 1,000 MG TABLET PO SCH ×3 (08:40→21:03)
[2021-07-14 08:45] LABS: ALBUMIN 2.3 g/dL (3.4-5.0); ALBUMIN/GLOBULIN RATIO 0.5 (1.0-1.7); CALCIUM 8.1 mg/dL (8.5-10.1); CREATININE 0.8 mg/dL (0.7-1.3); GFR 98.3; TOTAL BILIRUBIN 1.1 mg/dL (0.2-1.0); TOTAL PROTEIN 6.7 g/dL (6.4-8.2)
[2021-07-14] MEDS: METOPROLOL TART IMMED RELEASE 25 MG TABLET. PO SCH ×2 (08:53→21:03)
[2021-07-14 09:00] LABS: POTASSIUM 3.4 mmol/L (3.5-5.1)
--- NOTE | 2021-07-14 09:32 | PDOC2 ---
CONSULT Date of Service Date of Service DATE: 07/14/21 TIME: 09:16 Reason for Consult Reason for Consult: Peripheral arterial disease, gangrene Referring Physician Referring Physician: Dr. Hickman Identification/Chief Complaint Chief Complaint Generalized weakness Source Source: Patient History of Present Illness Reason for Visit: This a pleasant 60-year-old male who was admitted to the hospital in earlier this month with generalized weakness and fatigue. He tested positive for COVID- 19. He reports that prior to his hospitalization he was ambulating fine however he could not go long distances due to fatigue and generalized weakness. He denies having any foot wounds prior to his hospitalization. He denies any history of smoking. He denies any history of other medical issues including stroke, heart disease, kidney disease. He underwent aortogram with runoff yesterday that showed bilateral SFA and popliteal occlusions with tibial disease and PT runoff bilaterally. At some point during his hospitalization staff noticed discoloration of his toes, this has progressed to dry gangrene to the tips of most of his toes and bilateral heels. He denies any significant pain to his legs or feet. He has not had any fevers or chills. Has had mild leukocytosis, however this has resolved. He is not on any antibiotics. He is on DVT prophylaxis with Lovenox every 24. Past Medical History Cardiovascular: No pertinent hx Pulmonary: No pertinent hx GI: No pertinent hx Heme/Onc: No pertinent hx Hepatobiliary: No pertinent hx Psych: No pertinent hx Rheumatologic: No pertinent hx Infectious disease: No pertinent hx ENT: No pertinent hx Renal/: No pertinent hx Endocrine: No pertinent hx Dermatology: No pertinent hx Past Surgical History Past Surgical History: No pertinent history Family History Family History: Other (noncontributory ) Social History No ALCOHOL: none Drugs: None Current Problem List Problem List Problems Medical Problems: (1) Dehydration Status: Acute (2) Mental status alteration Status: Acute (3) Pneumonia Status: Acute Current Medications Current Medications Current Medications Sodium Chloride 1,000 ml @ 999 mls/hr 1X ONCE IV Last administered on 06/29/21at 19:10; Start 06/29/21 at 19:00; Stop 06/29/21 at 20:00; Status DC Dexamethasone Sodium Phosphate (Decadron) 10 mg 1X ONCE IV Last administered on 06/29/21at 20:30; Start 06/29/21 at 20:00; Stop 1/6/22 at 20:05; Status DC Sodium Chloride 1,000 ml @ 999 mls/hr 1X ONCE IV Last administered on 06/29/21at 20:30; Start 06/29/21 at 20:00; Stop 06/29/21 at 21:00; Status DC Ceftriaxone Sodium (Rocephin) 1 gm 1X ONCE IVP Last administered on 06/29/21at 20:29; Start 06/29/21 at 20:00; Stop 06/29/21 at 20:05; Status DC Azithromycin 250 ml @ 250 mls/hr 1X ONCE IV Last administered on 06/29/21at 20:00; Start 06/29/21 at 20:00; Stop 06/29/21 at 20:59; Status DC Sodium Chloride 1,000 ml @ 75 mls/hr [id number] IV Last administered on 06/30/21at 12:32; Start 06/29/21 at 20:45; Stop 06/30/21 at 20:44; Status DC Info (FLU VACCINE SCREEN per RX) 0.5 each 1X ONCE MC ; Start 07/01/21 at 09:00; Stop 07/01/21 at 09:01; Status DC Ascorbic Acid (Vitamin C) 3,000 mg TID PO Last administered on 07/14/21at 08:40; Start 06/30/21 at 21:00 Dexamethasone Sodium Phosphate (Decadron) 6 mg DAILY IVP Last administered on 07/10/21at 08:57; Start 06/30/21 at 16:00; Stop 07/10/21 at 12:29; Status DC Thiamine Mononitrate (Vitamin B-1) 300 mg DAILY PO Last administered on 07/14/21at 08:40; Start 06/30/21 at 16:00 Zinc Sulfate (Orazinc) 220 mg DAILY PO Last administered on 07/14/21at 08:40; Start 06/30/21 at 16:00 Sennosides (Senna) 17.2 mg PRN BID PRN PO CONSTIPATION; Start 06/30/21 at 15:15 Docusate Sodium (Colace) 100 mg PRN DAILY PRN PO HARD STOOLS; Start 06/30/21 at 15:15 Ondansetron HCl (Zofran) 4 mg PRN Q6HRS PRN IVP NAUSEA/VOMITING, 1st CHOICE; Start 06/30/21 at 15:15; Stop 07/05/21 at 14:02; Status DC Dextrose (Dextrose 50%-Water Syringe) 12.5 gm PRN Q15MIN PRN IV SEE COMMENTS; Start 06/30/21 at 15:15; Stop 07/05/21 at 12:45; Status DC Acetaminophen (Tylenol) 650 mg PRN Q4HRS PRN PO TEMP OVER 100.4F OR MILD PAIN; Start 06/30/21 at 15:15 Lorazepam (Ativan) 0.5 mg PRN Q6HRS PRN PO ANXIETY / AGITATION; Start 06/30/21 at 15:15; Stop 07/05/21 at 14:02; Status DC Lorazepam (Ativan Inj) 0.25 mg PRN Q4HRS PRN IV ANXIETY / AGITATION; Start 06/30/21 at 15:15; Stop 07/05/21 at 14:02; Status DC Enoxaparin Sodium (Lovenox 40mg Syringe) 40 mg Q24H SQ Last administered on 07/13/21at 17:20; Start 06/30/21 at 16:00 Prochlorperazine Edisylate (Compazine) 10 mg PRN Q6HRS PRN IV NAUSEA/VOMITING, 2nd CHOICE; Start 06/30/21 at 15:15; Stop 07/05/21 at 14:02; Status DC Diphenhydramine HCl (Benadryl) 25 mg PRN Q6HRS PRN IVP ITCHING; Start 06/30/21 at 15:15; Stop 07/05/21 at 14:02; Status DC Diphenhydramine HCl (Benadryl) 25 mg PRN Q6HRS PRN PO ITCHING; Start 06/30/21 at 15:15; Stop 07/05/21 at 14:02; Status DC Diphenhydramine HCl (Benadryl) 25 mg PRN QHS PRN PO INSOMNIA, 1ST CHOICE; Start 06/30/21 at 15:15; Stop 07/05/21 at 14:02; Status DC Zolpidem Tartrate (Ambien) 2.5 mg PRN QHS PRN PO INSOMNIA, 2ND CHOICE; Start 06/30/21 at 15:15; Stop 07/05/21 at 14:02; Status DC Pantoprazole Sodium (PROTONIX VIAL for IV PUSH) 40 mg DAILYAC IVP Last administered on 07/14/21at 08:39; Start 06/30/21 at 16:00 Amino Acids/ Electrolytes/ Dextrose 1,000 ml @ 80 mls/hr [id number] IV ; Start 07/04/21 at 09:15; Status UNV Dextrose/Lactated Ringer's 1,000 ml @ 80 mls/hr [id number] IV Last administered on 07/12/21at 06:27; Start 07/04/21 at 09:30; Stop 07/12/21 at 10:58; Status DC Insulin Human Lispro (HumaLOG) 0-5 UNITS TIDWMEALS SQ ; Start 07/05/21 at 17:00 Dextrose (Dextrose 50%-Water Syringe) 12.5 gm PRN Q15MIN PRN IV SEE COMMENTS Last administered on 07/09/21at 23:48; Start 07/05/21 at 12:45 Aspirin (Ecotrin) 81 mg [id number] PO Last administered on 07/14/21at 08:40; Start 07/11/21 at 15:00 Atorvastatin Calcium (Lipitor) 20 mg QHS PO Last administered on 07/13/21at 20:28; Start 07/11/21 at 21:00 Metoprolol Tartrate (Lopressor) 25 mg BID PO Last administered on 07/14/21at 08:53; Start 07/12/21 at 12:15 Heparin Sodium/ Sodium Chloride (HEPARIN for ARTERIAL LINE FLUSH) 1,000 unit 1X ONCE IART Last administered on 07/13/21at 13:00; Start 07/13/21 at 13:00; Stop 07/13/21 at 13:01; Status DC Heparin Sodium/ Sodium Chloride (HEPARIN for ARTERIAL LINE FLUSH) 1,000 unit 1X ONCE IART Last administered on 07/13/21at 13:00; Start 07/13/21 at 13:00; Stop 07/13/21 at 13:01; Status DC Midazolam HCl (Versed) 2 mg 1X ONCE IV Last administered on 07/13/21at 13:20; Start 07/13/21 at 13:00; Stop 07/13/21 at 13:01; Status DC Fentanyl Citrate (Fentanyl 2ml Vial) 100 mcg 1X ONCE IV Last administered on 07/13/21at 13:20; Start 07/13/21 at 13:00; Stop 07/13/21 at 13:01; Status DC Iodixanol (Visipaque 320) 100 ml 1X ONCE IART Last administered on 07/13/21at 13:50; Start 07/13/21 at 13:00; Stop 07/13/21 at 13:01; Status DC Lidocaine HCl (Lidocaine 1% 20ml Vial) 20 ml 1X ONCE INJ Last administered on 07/13/21at 13:22; Start 07/13/21 at 13:00; Stop 07/13/21 at 13:01; Status DC Nitroglycerin (Nitroglycerin) 200 mcg 1X ONCE IART Last administered on 07/13/21at 13:23; Start 07/13/21 at 13:30; Stop 07/13/21 at 13:35; Status DC Verapamil HCl (Verapamil) 2.5 mg 1X ONCE IART Last administered on 07/13/21at 13:23; Start 07/13/21 at 13:30; Stop 07/13/21 at 13:35; Status DC Heparin Sodium (Porcine) (Heparin Sodium) 2,500 unit 1X ONCE IART Last adminis tered on 07/13/21at 13:30; Start 07/13/21 at 13:30; Stop 07/13/21 at 13:35; Status DC Active Scripts Active No Active Prescriptions or Reported Medications Allergies Allergies: Coded Allergies: No Known Allergies (Verified Allergy, Unknown, 07/06/21) ROS General: No: Chills, Other PSYCHOLOGICAL ROS: YES: Disorientation, Irritablity Hematological and Lymphatic: No: Bleeding Problems, Blood Clots, Brusing Respiratory: No: Cough, Hemoptysis, Shortness of breath Cardiovascular: No Chest Pain Gastrointestinal: Yes Abdominal Pain; No Nausea, No Vomiting, No Diarrhea Musculoskeletal: Yes Gait Disturbance; No Pain In: (legs, feet) Neurological: Yes Numbness/Tingling, Yes Weakness Skin: Yes Skin Lesion Changes Physical Exam General: Alert, Oriented X3, Cooperative, No acute distress Lungs: Normal air movement (room air) Heart: Regular rate Abdomen: Soft, No tenderness Extremities: Other (His left foot has dry gangrene to his heel laterally and dry gangrene to the tips of all of his toes, the fifth toe is least affected. T here is no fluctuance or drainage or surrounding erythema. There is some slight purple discoloration extending proximally from his toes. His right foot has dry eschar to his medial heel and dry gangrene to the tips of his toes, there is moisture and maceration between his fifth and fourth toes without any significant drainage or fluctuance or surrounding erythema. Cannot appreciate pedal pulses however his feet are warm and motor function and sensation is intact.) Neuro: Normal speech, Normal tone, Sensation intact, Other (He is unable to dorsiflex his right foot, however plantarflexion is intact) Psych/Mental Status: Mental status NL, Mood NL Vitals VITALS Vital Signs Date Time Temp Pulse Resp B/P (MAP) Pulse Ox O2 Delivery O2 Flow Rate FiO2 07/14/21 08:53 78 148/93 07/14/21 02:41 97.8 17 95 Room Air 97.8 07/13/21 15:31 2.0 Labs Labs Laboratory Tests Test 07/12/21 11:58 07/12/21 16:54 07/12/21 21:29 07/13/21 08:30 Glucose (Fingerstick) 103 mg/dL (70-99) 122 mg/dL (70-99) 117 mg/dL (70-99) 101 mg/dL (70-99) Test 07/13/21 11:58 07/13/21 17:17 07/13/21 19:13 07/14/21 04:00 Glucose (Fingerstick) 106 mg/dL (70-99) 85 mg/dL (70-99) 87 mg/dL (70-99) White Blood Count 10.9 x10^3/uL (4.0-11.0) Red Blood Count 4.65 x10^6/uL (4.30-5.70) Hemoglobin 14.4 g/dL (13.0-17.5) Hematocrit 43.2 % (39.0-53.0) Mean Corpuscular Volume 93 fL (79-100) Mean Corpuscular Hemoglobin 31 pg (25-35) Mean Corpuscular Hemoglobin Concent 33 g/dL (31-37) Red Cell Distribution Width 13.6 % (11.5-14.5) Platelet Count 197 x10^3/uL (140-400) Neutrophils (%) (Auto) 77 % (31-73) Lymphocytes (%) (Auto) 15 % (24-48) Monocytes (%) (Auto) 7 % (0-9) Eosinophils (%) (Auto) 1 % (0-3) Basophils (%) (Auto) 1 % (0-3) Neutrophils # (Auto) 8.4 x10^3/uL (1.8-7.7) Lymphocytes # (Auto) 1.6 x10^3/uL (1.0-4.8) Monocytes # (Auto) 0.7 x10^3/uL (0.0-1.1) Eosinophils # (Auto) 0.1 x10^3/uL (0.0-0.7) Basophils # (Auto) 0.1 x10^3/uL (0.0-0.2) Test 07/14/21 04:25 Sodium Level 142 mmol/L (136-145) Potassium Level 3.4 mmol/L (3.5-5.1) Chloride Level 105 mmol/L (98-107) Carbon Dioxide Level 25 mmol/L (21-32) Anion Gap 12 (6-14) Blood Urea Nitrogen 15 mg/dL (8-26) Creatinine 0.8 mg/dL (0.7-1.3) Estimated GFR (Cockcroft-Gault) 98.3 BUN/Creatinine Ratio 19 (6-20) Glucose Level 63 mg/dL (70-99) Calcium Level 8.1 mg/dL (8.5-10.1) Total Bilirubin 1.1 mg/dL (0.2-1.0) Aspartate Amino Transf (AST/SGOT) 69 U/L (15-37) Alanine Aminotransferase (ALT/SGPT) 156 U/L (16-63) Alkaline Phosphatase 75 U/L (46-116) Total Protein 6.7 g/dL (6.4-8.2) Albumin 2.3 g/dL (3.4-5.0) Albumin/Globulin Ratio 0.5 (1.0-1.7) Laboratory Tests Test 07/13/21 11:58 07/13/21 17:17 07/13/21 19:13 07/14/21 04:00 Glucose (Fingerstick) 106 mg/dL (70-99) 85 mg/dL (70-99) 87 mg/dL (70-99) White Blood Count 10.9 x10^3/uL (4.0-11.0) Red Blood Count 4.65 x10^6/uL (4.30-5.70) Hemoglobin 14.4 g/dL (13.0-17.5) Hematocrit 43.2 % (39.0-53.0) Mean Corpuscular Volume 93 fL (79-100) Mean Corpuscular Hemoglobin 31 pg (25-35) Mean Corpuscular Hemoglobin Concent 33 g/dL (31-37) Red Cell Distribution Width 13.6 % (11.5-14.5) Platelet Count 197 x10^3/uL (140-400) Neutrophils (%) (Auto) 77 % (31-73) Lymphocytes (%) (Auto) 15 % (24-48) Monocytes (%) (Auto) 7 % (0-9) Eosinophils (%) (Auto) 1 % (0-3) Basophils (%) (Auto) 1 % (0-3) Neutrophils # (Auto) 8.4 x10^3/uL (1.8-7.7) Lymphocytes # (Auto) 1.6 x10^3/uL (1.0-4.8) Monocytes # (Auto) 0.7 x10^3/uL (0.0-1.1) Eosinophils # (Auto) 0.1 x10^3/uL (0.0-0.7) Basophils # (Auto) 0.1 x10^3/uL (0.0-0.2) Test 07/14/21 04:25 Sodium Level 142 mmol/L (136-145) Potassium Level 3.4 mmol/L (3.5-5.1) Chloride Level 105 mmol/L (98-107) Carbon Dioxide Level 25 mmol/L (21-32) Anion Gap 12 (6-14) Blood Urea Nitrogen 15 mg/dL (8-26) Creatinine 0.8 mg/dL (0.7-1.3) Estimated GFR (Cockcroft-Gault) 98.3 BUN/Creatinine Ratio 19 (6-20) Glucose Level 63 mg/dL (70-99) Calcium Level 8.1 mg/dL (8.5-10.1) Total Bilirubin 1.1 mg/dL (0.2-1.0) Aspartate Amino Transf (AST/SGOT) 69 U/L (15-37) Alanine Aminotransferase (ALT/SGPT) 156 U/L (16-63) Alkaline Phosphatase 75 U/L (46-116) Total Protein 6.7 g/dL (6.4-8.2) Albumin 2.3 g/dL (3.4-5.0) Albumin/Globulin Ratio 0.5 (1.0-1.7) Images Images I have reviewed the arteriogram from yesterday. He has bilateral SFA occlusions and popliteal occlusions with PT runoff to the foot. Assessment/Plan Assessment/Plan Peripheral arterial occlusive disease Bilateral toe and heel gangrene COVID-19 Pleasant 60-year-old male with bilateral lower extremity arterial occlusive disease with gangrene to his heels and toes. I discussed this with the patient and the findings of the arteriogram yesterday. I discussed with the patient potential options including aggressive surgical management with bypass operations, possible more aggressive percutaneous intervention if amenable, versus conservative observation and wound care/protective measures. He understands that at the minimum he would require toe amputations at some point in the future, possible TMA custom, possible more proximal amputations. He is ambulatory, however with discussing with him he does not seem very active which would pose some risks to recovery postoperatively. We will need to discuss with surgeon's case and further recommendations. His foot wounds are stable at this time and there is no urgency to surgical intervention. Needs strict heel offloading with heel floating while in bed. FRANCIS ALLAN Jul 14, 2021 09:32
[2021-07-14 10:40] VITALS: BP 152/86
--- NOTE | 2021-07-14 10:47 | PDOC ---
FERMIN BARNES WAGE ANALYST 07/14/21 1047: CARDIO Progress Notes Date and Time Date of Service 07/14/2021 Time of Evaluation 0910 Subjective Subjective: No Chest Pain, No shortness of breath, No Palpitations Vitals Vitals Vital Signs Date Time Temp Pulse Resp B/P (MAP) Pulse Ox O2 Delivery O2 Flow Rate FiO2 07/14/21 08:53 78 148/93 07/14/21 07:00 97.6 20 96 Nasal Cannula 97.6 07/13/21 15:31 2.0 Weight Weight [ ] Input and Output Intake and Output Intake and Output 07/14/21 07:00 Intake Total 0 ml Balance 0 ml Intake Oral 0 ml # Voids 1 Laboratory Labs Laboratory Tests Test 07/13/21 11:58 07/13/21 17:17 07/13/21 19:13 07/14/21 04:00 Glucose (Fingerstick) 106 mg/dL (70-99) 85 mg/dL (70-99) 87 mg/dL (70-99) White Blood Count 10.9 x10^3/uL (4.0-11.0) Red Blood Count 4.65 x10^6/uL (4.30-5.70) Hemoglobin 14.4 g/dL (13.0-17.5) Hematocrit 43.2 % (39.0-53.0) Mean Corpuscular Volume 93 fL (79-100) Mean Corpuscular Hemoglobin 31 pg (25-35) Mean Corpuscular Hemoglobin Concent 33 g/dL (31-37) Red Cell Distribution Width 13.6 % (11.5-14.5) Platelet Count 197 x10^3/uL (140-400) Neutrophils (%) (Auto) 77 % (31-73) Lymphocytes (%) (Auto) 15 % (24-48) Monocytes (%) (Auto) 7 % (0-9) Eosinophils (%) (Auto) 1 % (0-3) Basophils (%) (Auto) 1 % (0-3) Neutrophils # (Auto) 8.4 x10^3/uL (1.8-7.7) Lymphocytes # (Auto) 1.6 x10^3/uL (1.0-4.8) Monocytes # (Auto) 0.7 x10^3/uL (0.0-1.1) Eosinophils # (Auto) 0.1 x10^3/uL (0.0-0.7) Basophils # (Auto) 0.1 x10^3/uL (0.0-0.2) Test 07/14/21 04:25 Sodium Level 142 mmol/L (136-145) Potassium Level 3.4 mmol/L (3.5-5.1) Chloride Level 105 mmol/L (98-107) Carbon Dioxide Level 25 mmol/L (21-32) Anion Gap 12 (6-14) Blood Urea Nitrogen 15 mg/dL (8-26) Creatinine 0.8 mg/dL (0.7-1.3) Estimated GFR (Cockcroft-Gault) 98.3 BUN/Creatinine Ratio 19 (6-20) Glucose Level 63 mg/dL (70-99) Calcium Level 8.1 mg/dL (8.5-10.1) Total Bilirubin 1.1 mg/dL (0.2-1.0) Aspartate Amino Transf (AST/SGOT) 69 U/L (15-37) Alanine Aminotransferase (ALT/SGPT) 156 U/L (16-63) Alkaline Phosphatase 75 U/L (46-116) Total Protein 6.7 g/dL (6.4-8.2) Albumin 2.3 g/dL (3.4-5.0) Albumin/Globulin Ratio 0.5 (1.0-1.7) Physical Exam HEENT: Neck Supple W Full Motion Chest: Symmetric LUNGS: Clear to Auscultation Heart: RRR (SR) Abdomen: Soft N/T Extremities: Other ( Bilateral toes with gangrene/eschar present. Rook boots intact ) Neurology: alert, follow commands Assessment Assessment 1. Acute respiratory failure due to acute COVID infection 2. Encephalopathy; CT head without acute findings. improved 3. Severe BLE PAD, bilateral multiple toe ulcers with eschar and gangrene S/P aortogram with severe bilateral SFA/popliteal segment disease 4. Hypertension; controlled Recommendations ASA, statin therapy, metoprolol Continue Rook boots Considerations would include endovascular revascularization via a pedal approach versus short segment vein bypass. Ultimately this will be determined based on the viability of a transmetatarsal versus below-knee amputation. Awaiting vascular input Supportive care Justicifation of Admission Dx: Justifications for Admission: Justification of Admission Dx: Yes MALAIKA HOLLIS MD 07/14/21 1743: CARDIO Progress Notes Plan Plan The patient was seen and interviewed as well as examined at the bedside. The chart was reviewed. The case was discussed. Agree with the plan of care. FERMIN BARNES APRN Jul 14, 2021 10:47 MALAIKA HOLLIS MD Jul 14, 2021 17:43
[2021-07-14] MEDS ORDERED: POTASSIUM CHLORIDE 20 MEQ TABLET.ER. PO ONE (11:00)
--- NOTE | 2021-07-14 12:32 | NUR ---
SS following up with discharge planning. SS reviewed pt chart and discussed with pt RN. Pt is currently on room air. COVID19 positive. PO diet. Vascular and Cardiology following. Pt had angiogram with runoff on 07/13/2021. Vein Mapping ordered. Possible need for surgical intervention early next week. PT/OT following. Self pay. Med Assist following. SS will continue to follow for discharge planning. Addendum: 07/14/21 at 1444 by SAVANNAH JONES SS SS met with [employer], and was asked to provide pt with handout regarding disability/medicaid application and contact information for assistance. SS met with pt in room and provided information.
--- NOTE | 2021-07-14 14:20 | PDOC ---
[employer] PROGRESS NOTE Date of Service DOS: DATE: 07/14/21 TIME: 13:30 Chief Complaint Chief Complaint confusion and lethargy, AMS acute COVID-19 infection Acute infectious and metabolic encephalopathy IVORY due to vasomotor nephropathyimproved Lactic acidemia dysphagia malnutrition, heel erythema on admit, poor nail care and dystrophic nails PAD - confirmed on arterial dopplers, may have COVID toes History of Present Illness History of Present Illness Mr Lambert is a 60-year-old male that presented 06/29/2021 via [facility] with decreased level of consciousness. Most of the history was obtained via EMS and patient's friend Reese [phone], who states that patient has been sick since about June 22 per Reese, he states that they both had cough cold heada patrice sinus type pain. Per Reese's report patient is okay during the day and very alert and orientated and at night he has a decreased alertness. Patient is unable to help with exam when asked questions he does deny any past medical history, surgeries, or any other health conditions. Reese who is his roommate collaborates any information gotten from the patient. Accu-Chek per EMS was 250, room air sat in the room was 88 to 90%. 07/07: not much improved, about the same. cont current. PULM following. we have no clinimix, cont D5 fluid, 07/08: more alert, can try ST again, if able to sit up, still very weak 07/09: much more alert, bedside swallow of water ok, sits upright, much stronger, will try clears if able, ST to follow. toes are worsening, now black, hannah consult podiatry to follow, 07/10: More alert. Working with speech and swallowing today. Off O2. Less confused. Bilateral toe ulcers assessed by podiatry today. 07/11: More alert, eating. Arterial Doppler was left popliteal and severe distal disease bilaterally. Still has a little bit of a cough. Less confused today. 07/12: Eating reasonably well. Tentative plans for angiogram for consideration of limb salvage bilateral feet tomorrow. Discussed with cardiology. He will need significant follow-up care likely eventual amputations. 07/13: N.p.o. for angiogram today with bilateral SFA occlusive disease and left popliteal disease with left posterior tibial artery with some flow otherwise occlusive disease per cardiology. Discussed vascular surgery consultation for consideration of definitive revascularization with likely bilateral transmetatarsal amputations. Still with a little bit of a cough. Shortness of breath 07/14: Seen bedside. Having some pain in his bilateral extremities. Shortness of breath improved still with little bit of cough. Eating again. Amenable to revascularization and likely surgical debridement next week. Increasing thromboprophylaxis Vitals/I&O Vitals/I&O: Vital Signs Date Time Temp Pulse Resp B/P (MAP) Pulse Ox O2 Delivery O2 Flow Rate FiO2 07/14/21 10:40 98.0 68 18 152/86 (108) 96 Room Air 98.0 07/13/21 15:31 2.0 I & O 07/13/21 07/13/21 07/14/21 15:00 23:00 07:00 Intake Total 0 ml Balance 0 ml Physical Exam Physical Exam: lethargic and weak General: Alert, Oriented X3, Cooperative, No acute distress Heart: Regular rate Lungs: Clear Abdomen: Soft, No tenderness Extremities: Other (His left foot has dry gangrene to his heel laterally and dry gangrene to the tips of all of his toes, the fifth toe is least affected. There is no fluctuance or drainage or surrounding erythema. There is some slight purple discoloration extending proximally from his toes. His right foot has dry eschar to his medial heel and dry gangrene to the tips of his toes, there is moisture and maceration between his fifth and fourth toes without any significant drainage or fluctuance or surrounding erythema. Cannot appreciate pedal pulses however his feet are warm and motor function and sensation is intact.) Skin: Other (toes blackend, very poor nail care, dystrophic nails and fungus) Labs Labs: Laboratory Tests Test 07/13/21 17:17 07/13/21 19:13 07/14/21 04:00 07/14/21 04:25 Glucose (Fingerstick) 85 mg/dL (70-99) 87 mg/dL (70-99) White Blood Count 10.9 x10^3/uL (4.0-11.0) Red Blood Count 4.65 x10^6/uL (4.30-5.70) Hemoglobin 14.4 g/dL (13.0-17.5) Hematocrit 43.2 % (39.0-53.0) Mean Corpuscular Volume 93 fL (79-100) Mean Corpuscular Hemoglobin 31 pg (25-35) Mean Corpuscular Hemoglobin Concent 33 g/dL (31-37) Red Cell Distribution Width 13.6 % (11.5-14.5) Platelet Count 197 x10^3/uL (140-400) Neutrophils (%) (Auto) 77 % (31-73) Lymphocytes (%) (Auto) 15 % (24-48) Monocytes (%) (Auto) 7 % (0-9) Eosinophils (%) (Auto) 1 % (0-3) Basophils (%) (Auto) 1 % (0-3) Neutrophils # (Auto) 8.4 x10^3/uL (1.8-7.7) Lymphocytes # (Auto) 1.6 x10^3/uL (1.0-4.8) Monocytes # (Auto) 0.7 x10^3/uL (0.0-1.1) Eosinophils # (Auto) 0.1 x10^3/uL (0.0-0.7) Basophils # (Auto) 0.1 x10^3/uL (0.0-0.2) Sodium Level 142 mmol/L (136-145) Potassium Level 3.4 mmol/L (3.5-5.1) Chloride Level 105 mmol/L (98-107) Carbon Dioxide Level 25 mmol/L (21-32) Anion Gap 12 (6-14) Blood Urea Nitrogen 15 mg/dL (8-26) Creatinine 0.8 mg/dL (0.7-1.3) Estimated GFR (Cockcroft-Gault) 98.3 BUN/Creatinine Ratio 19 (6-20) Glucose Level 63 mg/dL (70-99) Calcium Level 8.1 mg/dL (8.5-10.1) Total Bilirubin 1.1 mg/dL (0.2-1.0) Aspartate Amino Transf (AST/SGOT) 69 U/L (15-37) Alanine Aminotransferase (ALT/SGPT) 156 U/L (16-63) Alkaline Phosphatase 75 U/L (46-116) Total Protein 6.7 g/dL (6.4-8.2) Albumin 2.3 g/dL (3.4-5.0) Albumin/Globulin Ratio 0.5 (1.0-1.7) Test 07/14/21 11:36 Glucose (Fingerstick) 106 mg/dL (70-99) Assessment and Plan Assessmemt and Plan Problems Medical Problems: (1) Dehydration Status: Acute (2) Mental status alteration Status: Acute (3) Pneumonia Status: Acute Comment Review of Relevant I have reviewed the following items amanda (where applicable) has been applied. Medications: Current Medications Medications (Trade) Dose Ordered Sig/Vicente Route PRN Reason Start Time Stop Time Status Last Admin Dose Admin Potassium Chloride (Klor-Con) 20 meq 1X ONCE PO 07/14/21 11:00 07/14/21 11:01 DC 07/14/21 11:48 Enoxaparin Sodium (Lovenox 80mg Syringe) 80 mg Q12HR SQ 07/14/21 13:00 07/14/21 13:22 Justifications for Admission Other Justification COVID-19 positive test (U07.1, COVID-19) with Acute Pneumonia (J12.89, Other viral pneumonia) (If respiratory failure or sepsis present, add as separate assessment) SIMONE ARGUELLO MD Jul 14, 2021 14:20
[2021-07-14 15:00] VITALS: BP 146/71
--- NOTE | 2021-07-14 17:31 | CARD ---
MR#: [id number] Date of Study: 07/14/2021 Ordering Physician: FERMIN BARNES, Referring Physician: FERMIN BARNES Tech: Teri De La Torre [facility] APPROVED REPORT EXAM: Two-dimensional and M-mode echocardiogram with Doppler and color Doppler. Other Information Quality : AverageHR: 75bpm Rhythm : NSR INDICATION RISK FACTORS Hypertension LEFT VENTRICLE The left ventricle is normal size. There is borderline concentric left ventricular hypertrophy. The l eft ventricular systolic function is normal and the ejection fraction is within normal range. Estimat ed ejection fraction 60%. There is normal LV segmental wall motion. RIGHT VENTRICLE The right ventricle is normal size. There is normal right ventricular wall thickness. The right ventr icular systolic function is normal. ATRIA The left atrium size is normal. The right atrium size is normal. The interatrial septum is intact wit h no evidence for an atrial septal defect or patent foramen ovale as noted on 2-D or Doppler imaging. GREAT VESSELS The aortic root is normal in size. PERICARDIAL EFFUSION There is no evidence of significant pericardial effusion. <Conclusion> The left ventricular systolic function is normal and the ejection fraction is within normal range. E stimated ejection fraction 60%. There is normal LV segmental wall motion. Limited echo only Signed by : Rio Hickman, Electronically Approved : 07/14/2021 17:30:43
[2021-07-14 19:56] VITALS: BP 129/81
[2021-07-14] MEDS: ATORVASTATIN CALCIUM 20 MG TABLET PO SCH (21:03)
[2021-07-14 23:08] VITALS: BP 139/86
[2021-07-15 03:15] VITALS: BP 126/82
[2021-07-15 07:00] VITALS: BP 129/85
[2021-07-15] MEDS: INSULIN LISPRO 300 UNITS/3 ML VIAL. SQ SCH ×3 (08:00→17:00)
[2021-07-15] MEDS: ASPIRIN ENTERIC COATED 81 MG TABLET.DR. PO SCH (08:21)
[2021-07-15] MEDS: THIAMINE 100 MG TABLET. PO SCH (08:21)
[2021-07-15] MEDS: ZINC SULFATE 220 MG CAPSULE. PO SCH (08:21)
[2021-07-15] MEDS: METOPROLOL TART IMMED RELEASE 25 MG TABLET. PO SCH ×2 (08:22→19:56)
[2021-07-15] MEDS: ASCORBIC ACID 1,000 MG TABLET PO SCH ×3 (08:22→19:55)
[2021-07-15] MEDS: PANTOPRAZOLE IV PUSH 40 MG VIAL. IVP SCH (08:24)
--- NOTE | 2021-07-15 10:34 | PDOC ---
CARDIOLOGY PROGRESS NOTE SUBJECTIVE: No new issues overnight. Awaiting surgery tomorrow. OBJECTIVE: Vital Signs/I&O: Vital Signs Date Time Temp Pulse Resp B/P (MAP) Pulse Ox O2 Delivery O2 Flow Rate FiO2 07/15/21 08:22 77 129/85 07/15/21 08:20 Nasal Cannula 2.0 07/15/21 07:00 97.9 20 96 97.9 I & O 07/14/21 07/14/21 07/15/21 14:59 22:59 06:59 Intake Total 360 ml 60 ml Balance 360 ml 60 ml Objective: HEENT: Neck Supple W Full Motion Chest: Symmetric LUNGS: Clear to Auscultation Heart: RRR (SR) Abdomen: Soft N/T Extremities: Other ( Bilateral toes with gangrene/eschar present. Rook boots intact ) Neurology: alert, follow commands CURRENT MEDICATIONS: Lovenox, atorvastatin, asa, metoprolol. DIAGNOSTIC TESTING: Labs reviewed. Labs: Laboratory Tests Test 07/14/21 11:36 07/14/21 17:08 07/14/21 20:39 07/15/21 08:53 Glucose (Fingerstick) 106 mg/dL (70-99) H 86 mg/dL (70-99) 88 mg/dL (70-99) 102 mg/dL (70-99) H ASSESSMENT: 1. Acute respiratory failure due to acute COVID infection - resolved. 2. Encephalopathy; CT head without acute findings. improved 3. Severe BLE PAD, bilateral multiple toe ulcers with eschar and gangrene S/P aortogram with severe bilateral SFA/popliteal segment disease - thrombus most likely cause in the setting of infection. 4. Hypertension; controlled Recommendations Continue asa, lovenox therapy Await surgical intervention. Justicifation of Admission Dx: Justifications for Admission: Justification of Admission Dx: Yes MALAIKA HOLLIS MD Jul 15, 2021 10:34
[2021-07-15 10:58] VITALS: BP 133/90
--- NOTE | 2021-07-15 11:05 | PDOC ---
PROGRESS NOTES Date of Service DATE: 07/15/21 TIME: 11:01 Subjective Subjective He is without new complaints. He has had encephalopathy, but his thinking is slowly improving. He has some pain in his feet. Objective Objective Vital Signs Date Time Temp Pulse Resp B/P (MAP) Pulse Ox O2 Delivery O2 Flow Rate FiO2 07/15/21 10:58 97.5 87 20 133/90 (104) 96 Room Air 97.5 07/15/21 08:20 2.0 Intake and Output 07/15/21 07:00 Intake Total 420 ml Balance 420 ml Intake Oral 420 ml # Voids 1 Physical Exam Abdomen: Soft, No tenderness Heart: Regular rate Extremities: Other (Dry gangrene to toes on both feet as well as dry heel eschars bilaterally. No significant erythema or fluctuance at this time.) General: Alert, No acute distress Lungs: Normal air movement Diagnosis DIAGNOSIS Angiogram reviewed with pertinent findings as noted on note yesterday. Vein mapping pending at this time. Assessment Assessment Problems Medical Problems: (1) Dehydration Status: Acute (2) Mental status alteration Status: Acute (3) Pneumonia Status: Acute 4. COVID-19 pneumonia and encephalopathy (improving) 5. Peripheral arterial occlusion with dry gangrene to toes on both feet and bilateral heels Plan Plan of Care He has gangrenous changes to the toes on both feet as well as both heels. Angiogram demonstrated bilateral popliteal artery occlusion with reconstitution of the posterior tibial arteries bilaterally. It is unclear whether this is purely thrombotic/embolic or whether there is a component of chronic atherosclerotic occlusive disease. Would continue systemic anticoagulation. He is to have a vein mapping to determine if he has adequate conduit for bypass. I discussed again with him today possible lower extremity thrombectomy versus bypass to optimize arterial flow to both feet. The risks and potential benefits were discussed with him. He would like to proceed. We will await final vein mapping to determine whether surgery is possible, but time has been reserved on Saturday. Comment Review of Relevant I have reviewed the following items amanda (where applicable) has been applied. Labs Laboratory Tests Test 07/13/21 11:58 07/13/21 17:17 07/13/21 19:13 07/14/21 04:00 Glucose (Fingerstick) 106 mg/dL (70-99) 85 mg/dL (70-99) 87 mg/dL (70-99) White Blood Count 10.9 x10^3/uL (4.0-11.0) Red Blood Count 4.65 x10^6/uL (4.30-5.70) Hemoglobin 14.4 g/dL (13.0-17.5) Hematocrit 43.2 % (39.0-53.0) Mean Corpuscular Volume 93 fL (79-100) Mean Corpuscular Hemoglobin 31 pg (25-35) Mean Corpuscular Hemoglobin Concent 33 g/dL (31-37) Red Cell Distribution Width 13.6 % (11.5-14.5) Platelet Count 197 x10^3/uL (140-400) Neutrophils (%) (Auto) 77 % (31-73) Lymphocytes (%) (Auto) 15 % (24-48) Monocytes (%) (Auto) 7 % (0-9) Eosinophils (%) (Auto) 1 % (0-3) Basophils (%) (Auto) 1 % (0-3) Neutrophils # (Auto) 8.4 x10^3/uL (1.8-7.7) Lymphocytes # (Auto) 1.6 x10^3/uL (1.0-4.8) Monocytes # (Auto) 0.7 x10^3/uL (0.0-1.1) Eosinophils # (Auto) 0.1 x10^3/uL (0.0-0.7) Basophils # (Auto) 0.1 x10^3/uL (0.0-0.2) Test 07/14/21 04:25 07/14/21 11:36 07/14/21 17:08 07/14/21 20:39 Sodium Level 142 mmol/L (136-145) Potassium Level 3.4 mmol/L (3.5-5.1) Chloride Level 105 mmol/L (98-107) Carbon Dioxide Level 25 mmol/L (21-32) Anion Gap 12 (6-14) Blood Urea Nitrogen 15 mg/dL (8-26) Creatinine 0.8 mg/dL (0.7-1.3) Estimated GFR (Cockcroft-Gault) 98.3 BUN/Creatinine Ratio 19 (6-20) Glucose Level 63 mg/dL (70-99) Calcium Level 8.1 mg/dL (8.5-10.1) Total Bilirubin 1.1 mg/dL (0.2-1.0) Aspartate Amino Transf (AST/SGOT) 69 U/L (15-37) Alanine Aminotransferase (ALT/SGPT) 156 U/L (16-63) Alkaline Phosphatase 75 U/L (46-116) Total Protein 6.7 g/dL (6.4-8.2) Albumin 2.3 g/dL (3.4-5.0) Albumin/Globulin Ratio 0.5 (1.0-1.7) Glucose (Fingerstick) 106 mg/dL (70-99) 86 mg/dL (70-99) 88 mg/dL (70-99) Test 07/15/21 08:53 Glucose (Fingerstick) 102 mg/dL (70-99) Laboratory Tests Test 07/14/21 11:36 07/14/21 17:08 07/14/21 20:39 07/15/21 08:53 Glucose (Fingerstick) 106 mg/dL (70-99) 86 mg/dL (70-99) 88 mg/dL (70-99) 102 mg/dL (70-99) Medications Current Medications Sodium Chloride 1,000 ml @ 999 mls/hr 1X ONCE IV Last administered on at 19:10; Start 06/29/21 at 19:00; Stop 06/29/21 at 20:00; Status DC Dexamethasone Sodium Phosphate (Decadron) 10 mg 1X ONCE IV Last administered on 06/29/21at 20:30; Start 06/29/21 at 20:00; Stop 06/29/21 at 20:05; Status DC Sodium Chloride 1,000 ml @ 999 mls/hr 1X ONCE IV Last administered on 06/29/21at 20:30; Start 06/29/21 at 20:00; Stop 06/29/21 at 21:00; Status DC Ceftriaxone Sodium (Rocephin) 1 gm 1X ONCE IVP Last administered on 06/29/21at 20:29; Start 06/29/21 at 20:00; Stop 06/29/21 at 20:05; Status DC Azithromycin 250 ml @ 250 mls/hr 1X ONCE IV Last administered on 06/29/21at 20:00; Start 06/29/21 at 20:00; Stop 06/29/21 at 20:59; Status DC Sodium Chloride 1,000 ml @ 75 mls/hr [id number] IV Last administered on 06/30/21at 12:32; Start 06/29/21 at 20:45; Stop 06/30/21 at 20:44; Status DC Info (FLU VACCINE SCREEN per RX) 0.5 each 1X ONCE MC ; Start 07/01/21 at 09:00; Stop 07/01/21 at 09:01; Status DC Ascorbic Acid (Vitamin C) 3,000 mg TID PO Last administered on 07/15/21at 08:22; Start 06/30/21 at 21:00 Dexamethasone Sodium Phosphate (Decadron) 6 mg DAILY IVP Last administered on 07/10/21at 08:57; Start 06/30/21 at 16:00; Stop 07/10/21 at 12:29; Status DC Thiamine Mononitrate (Vitamin B-1) 300 mg DAILY PO Last administered on 07/15/21at 08:21; Start 06/30/21 at 16:00 Zinc Sulfate (Orazinc) 220 mg DAILY PO Last administered on 07/15/21at 08:21; Start 06/30/21 at 16:00 Sennosides (Senna) 17.2 mg PRN BID PRN PO CONSTIPATION; Start 06/30/21 at 15:15 Docusate Sodium (Colace) 100 mg PRN DAILY PRN PO HARD STOOLS; Start 06/30/21 at 15:15 Ondansetron HCl (Zofran) 4 mg PRN Q6HRS PRN IVP NAUSEA/VOMITING, 1st CHOICE; Start 06/30/21 at 15:15; Stop 07/05/21 at 14:02; Status DC Dextrose (Dextrose 50%-Water Syringe) 12.5 gm PRN Q15MIN PRN IV SEE COMMENTS; Start 06/30/21 at 15:15; Stop 07/05/21 at 12:45; Status DC Acetaminophen (Tylenol) 650 mg PRN Q4HRS PRN PO TEMP OVER 100.4F OR MILD PAIN; Start 06/30/21 at 15:15 Lorazepam (Ativan) 0.5 mg PRN Q6HRS PRN PO ANXIETY / AGITATION; Start 06/30/21 at 15:15; Stop 07/05/21 at 14:02; Status DC Lorazepam (Ativan Inj) 0.25 mg PRN Q4HRS PRN IV ANXIETY / AGITATION; Start 06/30/21 at 15:15; Stop 07/05/21 at 14:02; Status DC Enoxaparin Sodium (Lovenox 40mg Syringe) 40 mg Q24H SQ Last administered on 07/13/21at 17:20; Start 06/30/21 at 16:00; Stop 07/14/21 at 12:21; Status DC Prochlorperazine Edisylate (Compazine) 10 mg PRN Q6HRS PRN IV NAUSEA/VOMITING, 2nd CHOICE; Start 06/30/21 at 15:15; Stop 07/05/21 at 14:02; Status DC Diphenhydramine HCl (Benadryl) 25 mg PRN Q6HRS PRN IVP ITCHING; Start 06/30/21 at 15:15; Stop 07/05/21 at 14:02; Status DC Diphenhydramine HCl (Benadryl) 25 mg PRN Q6HRS PRN PO ITCHING; Start 06/30/21 at 15:15; Stop 07/05/21 at 14:02; Status DC Diphenhydramine HCl (Benadryl) 25 mg PRN QHS PRN PO INSOMNIA, 1ST CHOICE; Start 06/30/21 at 15:15; Stop 07/05/21 at 14:02; Status DC Zolpidem Tartrate (Ambien) 2.5 mg PRN QHS PRN PO INSOMNIA, 2ND CHOICE; Start 06/30/21 at 15:15; Stop 07/05/21 at 14:02; Status DC Pantoprazole Sodium (PROTONIX VIAL for IV PUSH) 40 mg DAILYAC IVP Last administered on 07/15/21at 08:24; Start 06/30/21 at 16:00 Amino Acids/ Electrolytes/ Dextrose 1,000 ml @ 80 mls/hr [id number] IV ; Start 07/04/21 at 09:15; Status UNV Dextrose/Lactated Ringer's 1,000 ml @ 80 mls/hr [id number] IV Last administered on 07/12/21at 06:27; Start 07/04/21 at 09:30; Stop 07/12/21 at 10:58; Status DC Insulin Human Lispro (HumaLOG) 0-5 UNITS TIDWMEALS SQ ; Start 07/05/21 at 17:00 Dextrose (Dextrose 50%-Water Syringe) 12.5 gm PRN Q15MIN PRN IV SEE COMMENTS Last administered on 07/09/21at 23:48; Start 07/05/21 at 12:45 Aspirin (Ecotrin) 81 mg [id number] PO Last administered on 07/15/21at 08:21; Start 07/11/21 at 15:00 Atorvastatin Calcium (Lipitor) 20 mg QHS PO Last administered on 07/14/21at 21:03; Start 07/11/21 at 21:00 Metoprolol Tartrate (Lopressor) 25 mg BID PO Last administered on 07/15/21at 08:22; Start 07/12/21 at 12:15 Heparin Sodium/ Sodium Chloride (HEPARIN for ARTERIAL LINE FLUSH) 1,000 unit 1X ONCE IART Last administered on 07/13/21at 13:00; Start 07/13/21 at 13:00; Stop 07/13/21 at 13:01; Status DC Heparin Sodium/ Sodium Chloride (HEPARIN for ARTERIAL LINE FLUSH) 1,000 unit 1X ONCE IART Last administered on 07/13/21at 13:00; Start 07/13/21 at 13:00; Stop 07/13/21 at 13:01; Status DC Midazolam HCl (Versed) 2 mg 1X ONCE IV Last administered on 07/13/21at 13:20; Start 07/13/21 at 13:00; Stop 07/13/21 at 13:01; Status DC Fentanyl Citrate (Fentanyl 2ml Vial) 100 mcg 1X ONCE IV Last administered on 07/13/21at 13:20; Start 07/13/21 at 13:00; Stop 07/13/21 at 13:01; Status DC Iodixanol (Visipaque 320) 100 ml 1X ONCE IART Last administered on 07/13/21at 13:50; Start 07/13/21 at 13:00; Stop 07/13/21 at 13:01; Status DC Lidocaine HCl (Lidocaine 1% 20ml Vial) 20 ml 1X ONCE INJ Last administered on 07/13/21at 13:22; Start 07/13/21 at 13:00; Stop 07/13/21 at 13:01; Status DC Nitroglycerin (Nitroglycerin) 200 mcg 1X ONCE IART Last administered on at 13:23; Start 07/13/21 at 13:30; Stop 07/13/21 at 13:35; Status DC Verapamil HCl (Verapamil) 2.5 mg 1X ONCE IART Last administered on 07/13/21at 13:23; Start 07/13/21 at 13:30; Stop 07/13/21 at 13:35; Status DC Heparin Sodium (Porcine) (Heparin Sodium) 2,500 unit 1X ONCE IART Last administered on 07/13/21at 13:30; Start 07/13/21 at 13:30; Stop 07/13/21 at 13:35; Status DC Potassium Chloride (Klor-Con) 20 meq 1X ONCE PO Last administered on 07/14/21at 11:48; Start 07/14/21 at 11:00; Stop 07/14/21 at 11:01; Status DC Enoxaparin Sodium (Lovenox 80mg Syringe) 80 mg Q12HR SQ Last administered on 07/15/21at 08:22; Start 07/14/21 at 13:00 Fentanyl Citrate (Fentanyl 2ml Vial) 25 mcg PRN Q5MIN PRN IVP MILD PAIN 1-3; Start 07/17/21 at 06:00; Stop 07/18/21 at 05:59 Fentanyl Citrate (Fentanyl 2ml Vial) 50 mcg PRN Q5MIN PRN IVP MODERATE PAIN 4- 6; Start 07/17/21 at 06:00; Stop 07/18/21 at 05:59 Morphine Sulfate (Morphine Sulfate) 1 mg PRN Q10MIN PRN IVP SEVERE PAIN 7-10; Start 07/17/21 at 06:00; Stop 07/18/21 at 05:59 Ringer's Solution 1,000 ml @ 30 mls/hr Q24H IV ; Start 07/17/21 at 06:00; Stop 07/17/21 at 17:59 Hydromorphone HCl (Dilaudid) 0.5 mg PRN Q10MIN PRN IVP SEVERE PAIN 7-10, 2nd CHOICE; Start 07/17/21 at 06:00; Stop 07/18/21 at 05:59 Prochlorperazine Edisylate (Compazine) 5 mg PACU PRN PRN IVP NAUSEA, MRX1; Start 07/17/21 at 06:00; Stop 07/18/21 at 05:59 Active Scripts Active No Active Prescriptions or Reported Medications Vitals/I & O Vital Sign - Last 24 Hours 07/14/21 07/14/21 07/14/21 07/14/21 15:00 19:40 19:56 21:03 Temp 97.5 97.1 97.5 97.1 Pulse 73 83 83 Resp 16 20 B/P (MAP) 146/71 (96) 129/81 (97) 129/81 Pulse Ox 96 95 O2 Delivery Room Air Nasal Cannula Room Air O2 Flow Rate 2.0 07/14/21 07/15/21 07/15/21 07/15/21 23:08 03:15 07:00 08:20 Temp 97.4 97.4 97.9 97.4 97.4 97.9 Pulse 76 74 77 Resp 20 17 20 B/P (MAP) 139/86 (103) 126/82 (97) 129/85 (100) Pulse Ox 96 93 96 O2 Delivery Room Air Room Air Room Air Nasal Cannula O2 Flow Rate 2.0 07/15/21 07/15/21 08:22 10:58 Temp 97.5 97.5 Pulse 77 87 Resp 20 B/P (MAP) 129/85 133/90 (104) Pulse Ox 96 O2 Delivery Room Air Intake and Output 07/14/21 07/14/21 07/15/21 15:00 23:00 07:00 Intake Total 360 ml 60 ml Balance 360 ml 60 ml Justifications for Admission Other Justification COVID-19 positive test (U07.1, COVID-19) with Acute Pneumonia (J12.89, Other viral pneumonia) (If respiratory failure or sepsis present, add as separate assessment) HASMUKH KLINE MD Jul 15, 2021 11:05
--- NOTE | 2021-07-15 11:14 | PDOC ---
[employer] PROGRESS NOTE Date of Service DOS: DATE: 07/15/21 TIME: 11:13 Chief Complaint Chief Complaint confusion and lethargy, AMS acute COVID-19 infection Acute infectious and metabolic encephalopathy IVORY due to vasomotor nephropathyimproved Lactic acidemia dysphagia malnutrition, heel erythema on admit, poor nail care and dystrophic nails PAD - confirmed on arterial dopplers, may have COVID toes History of Present Illness History of Present Illness Mr Lambert is a 60-year-old male that presented 06/29/2021 via [facility] with decreased level of consciousness. Most of the history was obtained via EMS and patient's friend Reese [phone], who states that patient has been sick since about June 22 per Reese, he states that they both had cough cold heada patrice sinus type pain. Per Reese's report patient is okay during the day and very alert and orientated and at night he has a decreased alertness. Patient is unable to help with exam when asked questions he does deny any past medical history, surgeries, or any other health conditions. Reese who is his roommate collaborates any information gotten from the patient. Accu-Chek per EMS was 250, room air sat in the room was 88 to 90%. 07/07: not much improved, about the same. cont current. PULM following. we have no clinimix, cont D5 fluid, 07/08: more alert, can try ST again, if able to sit up, still very weak 07/09: much more alert, bedside swallow of water ok, sits upright, much stronger, will try clears if able, ST to follow. toes are worsening, now black, hannah consult podiatry to follow, 07/10: More alert. Working with speech and swallowing today. Off O2. Less confused. Bilateral toe ulcers assessed by podiatry today. 07/11: More alert, eating. Arterial Doppler was left popliteal and severe distal disease bilaterally. Still has a little bit of a cough. Less confused today. 07/12: Eating reasonably well. Tentative plans for angiogram for consideration of limb salvage bilateral feet tomorrow. Discussed with cardiology. He will need significant follow-up care likely eventual amputations. 07/13: N.p.o. for angiogram today with bilateral SFA occlusive disease and left popliteal disease with left posterior tibial artery with some flow otherwise occlusive disease per cardiology. Discussed vascular surgery consultation for consideration of definitive revascularization with likely bilateral transmetatarsal amputations. Still with a little bit of a cough. Shortness of breath 07/14: Seen bedside. Having some pain in his bilateral extremities. Shortness of breath improved still with little bit of cough. Eating again. Amenable to revascularization and likely surgical debridement next week. Increasing thromboprophylaxis 07/15: Seen bedside. Not hypoxic. Cough is improving. He feels he is mental status is improved but he is definitely still mentating slowly. Complains of foot pain. He is contemplating surgical options but is okay with what ever the surgeons to choose for his likely lower extremity bypass tentatively planned for 07/17/2021 Vitals/I&O Vitals/I&O: Vital Signs Date Time Temp Pulse Resp B/P (MAP) Pulse Ox O2 Delivery O2 Flow Rate FiO2 07/15/21 10:58 97.5 87 20 133/90 (104) 96 Room Air 97.5 07/15/21 08:20 2.0 I & O0 07/14/21 07/14/21 07/15/21 15:00 23:00 07:00 Intake Total 360 ml 60 ml Balance 360 ml 60 ml Physical Exam Physical Exam: lethargic and weak General: Alert, No acute distress Heart: Regular rate Lungs: Clear Abdomen: Soft, No tenderness Extremities: Other (Dry gangrene to toes on both feet as well as dry heel eschars bilaterally. No significant erythema or fluctuance at this time.) Skin: Other (toes blackend, very poor nail care, dystrophic nails and fungus) Labs Labs: Laboratory Tests Test 07/14/21 11:36 07/14/21 17:08 07/14/21 20:39 07/15/21 08:53 Glucose (Fingerstick) 106 mg/dL (70-99) 86 mg/dL (70-99) 88 mg/dL (70-99) 102 mg/dL (70-99) Assessment and Plan Assessmemt and Plan Problems Medical Problems: (1) Dehydration Status: Acute (2) Mental status alteration Status: Acute (3) Pneumonia Status: Acute Comment Review of Relevant I have reviewed the following items amanda (where applicable) has been applied. Medications: Current Medications Medications (Trade) Dose Ordered Sig/Vicente Route PRN Reason Start Time Stop Time Status Last Admin Dose Admin Enoxaparin Sodium (Lovenox 80mg Syringe) 80 mg Q12HR SQ 07/14/21 13:00 07/15/21 08:22 Justifications for Admission Other Justification COVID-19 positive test (U07.1, COVID-19) with Acute Pneumonia (J12.89, Other viral pneumonia) (If respiratory failure or sepsis present, add as separate assessment) SIMONE ARGUELLO MD Jul 15, 2021 11:14
--- NOTE | 2021-07-15 11:40 | RAD ---
Exam performed: Bilateral lower extremity venous mapping. HISTORY: Preop for vascular surgery. DATE OF SERVICE: 07/15/2021. COMPARISON: None available Findings and impression: Bilateral lower extremity venous mapping is performed and images are obtained. The findings are as fo llows. The right greater saphenous vein measures 5 mm at the saphenofemoral confluence, 3 mm in the proximal thigh, 2 mm in the mid thigh and is too small to visualize in the mid to distal thigh and distally The right greater saphenous vein measures 1 mm in the proximal calf, 2 mm in the mid calf and 1 mm in the distal calf. The left greater saphenous vein measures 5 mm hyper femoral junction, 3 mm in the proximal thigh, 2 m m in the mid thigh, 3 mm in the distal thigh and 3 mm just above the knee. Measures 3 mm below the kn ee, 3 mm at the mid calf and 2 mm at the ankle. The lesser saphenous vein measures 3 mm in the proximal calf, 2 mm in the mid calf and 1 mm in the di stal calf. Electronically signed by: Sivan Rivera MD (07/15/2021 11:37 AM) [facility]
[2021-07-15 15:00] VITALS: BP 128/77
[2021-07-15 19:40] VITALS: BP 165/91
[2021-07-15] MEDS: ATORVASTATIN CALCIUM 20 MG TABLET PO SCH (19:55)
[2021-07-15 23:35] VITALS: BP 147/90
[2021-07-16 03:45] VITALS: BP 153/91
[2021-07-16 05:44] LABS: ALBUMIN 2.3 g/dL (3.4-5.0); ALBUMIN/GLOBULIN RATIO 0.5 (1.0-1.7); CALCIUM 8.1 mg/dL (8.5-10.1); CREATININE 0.8 mg/dL (0.7-1.3); GFR 98.3; POTASSIUM 3.5 mmol/L (3.5-5.1); TOTAL BILIRUBIN 0.8 mg/dL (0.2-1.0); TOTAL PROTEIN 6.8 g/dL (6.4-8.2)
[2021-07-16 07:00] VITALS: BP 132/79
[2021-07-16] MEDS: INSULIN LISPRO 300 UNITS/3 ML VIAL. SQ SCH ×3 (08:00→17:00)
[2021-07-16] MEDS: ASPIRIN ENTERIC COATED 81 MG TABLET.DR. PO SCH (09:03)
[2021-07-16] MEDS: THIAMINE 100 MG TABLET. PO SCH (09:04)
[2021-07-16] MEDS: ASCORBIC ACID 1,000 MG TABLET PO SCH ×3 (09:04→21:01)
[2021-07-16] MEDS: ZINC SULFATE 220 MG CAPSULE. PO SCH (09:05)
[2021-07-16] MEDS: METOPROLOL TART IMMED RELEASE 25 MG TABLET. PO SCH ×2 (09:05→21:01)
[2021-07-16] MEDS: PANTOPRAZOLE IV PUSH 40 MG VIAL. IVP SCH (09:05)
[2021-07-16 11:09] VITALS: BP 129/80
[2021-07-16 15:00] VITALS: BP 135/77
--- NOTE | 2021-07-16 15:14 | PDOC ---
[employer] PROGRESS NOTE Date of Service DOS: DATE: 07/16/21 TIME: 15:01 Chief Complaint Chief Complaint A/P: Confusion and lethargy, AMS Acute COVID-19 infection Acute infectious and metabolic encephalopathy IVORY due to vasomotor nephropathy improved Lactic acidemia Dysphagia Malnutrition Heel erythema on admit, poor nail care and dystrophic nails PAD - confirmed on arterial dopplers, may have COVID toes History of Present Illness History of Present Illness Mr Lambert is a 60-year-old male that presented 06/29/2021 via [facility] EMS with decreased level of consciousness. Most of the history was obtained via EMS and patient's friend Reese [phone], who states that patient has been sick since about June 22 per Reese, he states that they both had cough cold head ache sinus type pain. Per Reese's report patient is okay during the day and very alert and orientated and at night he has a decreased alertness. Patient is unable to help with exam when asked questions he does deny any past medical history, surgeries, or any other health conditions. Reese who is his roommate collaborates any information gotten from the patient. Accu-Chek per EMS was 250, room air sat in the room was 88 to 90%. 07/07: not much improved, about the same. cont current. PULM following. we have no clinimix, cont D5 fluid, 07/08: more alert, can try ST again, if able to sit up, still very weak 07/09: much more alert, bedside swallow of water ok, sits upright, much stronger, will try clears if able, ST to follow. toes are worsening, now black, hannah consult podiatry to follow, 07/10: More alert. Working with speech and swallowing today. Off O2. Less confused. Bilateral toe ulcers assessed by podiatry today. 07/11: More alert, eating. Arterial Doppler was left popliteal and severe distal disease bilaterally. Still has a little bit of a cough. Less confused today. 07/12: Eating reasonably well. Tentative plans for angiogram for consideration of limb salvage bilateral feet tomorrow. Discussed with cardiology. He will need significant follow-up care likely eventual amputations. 07/13: N.p.o. for angiogram today with bilateral SFA occlusive disease and left popliteal disease with left posterior tibial artery with some flow otherwise occlusive disease per cardiology. Discussed vascular surgery consultation for consideration of definitive revascularization with likely bilateral transmetatarsal amputations. Still with a little bit of a cough. Shortness of breath 07/14: Seen bedside. Having some pain in his bilateral extremities. Shortness o f breath improved still with little bit of cough. Eating again. Amenable to revascularization and likely surgical debridement next week. Increasing thromboprophylaxis 07/15: Seen bedside. Not hypoxic. Cough is improving. He feels he is mental status is improved but he is definitely still mentating slowly. Complains of foot pain. He is contemplating surgical options but is okay with what ever the surgeons to choose for his likely lower extremity bypass tentatively planned for 07/17/202107/16: Bilateral foot pain still with cough but improving. Still is contemplating surgical options. Vitals/I&O Vitals/I&O: Vital Signs Date Time Temp Pulse Resp B/P (MAP) Pulse Ox O2 Delivery O2 Flow Rate FiO2 07/16/21 11:09 97.3 70 16 129/80 (96) 95 Room Air 97.3 07/15/21 20:00 2.0 I & O 07/15/21 07/15/21 07/16/21 15:00 23:00 07:00 Intake Total 600 ml Balance 600 ml Physical Exam Physical Exam: lethargic and weak General: Alert, No acute distress Heart: Regular rate Lungs: Clear Abdomen: Soft, No tenderness Extremities: Other (Dry gangrene to toes on both feet as well as dry heel eschars bilaterally. No significant erythema or fluctuance at this time.) Skin: Other (toes blackend, very poor nail care, dystrophic nails and fungus) Labs Labs: Laboratory Tests Test 07/15/21 17:16 07/15/21 20:52 07/16/21 04:30 07/16/21 07:48 Glucose (Fingerstick) 101 mg/dL (70-99) 120 mg/dL (70-99) 95 mg/dL (70-99) Sodium Level 141 mmol/L (136-145) Potassium Level 3.5 mmol/L (3.5-5.1) Chloride Level 105 mmol/L (98-107) Carbon Dioxide Level 25 mmol/L (21-32) Anion Gap 11 (6-14) Blood Urea Nitrogen 15 mg/dL (8-26) Creatinine 0.8 mg/dL (0.7-1.3) Estimated GFR (Cockcroft-Gault) 98.3 BUN/Creatinine Ratio 19 (6-20) Glucose Level 102 mg/dL (70-99) Calcium Level 8.1 mg/dL (8.5-10.1) Total Bilirubin 0.8 mg/dL (0.2-1.0) Aspartate Amino Transf (AST/SGOT) 49 U/L (15-37) Alanine Aminotransferase (ALT/SGPT) 98 U/L (16-63) Alkaline Phosphatase 71 U/L (46-116) Total Protein 6.8 g/dL (6.4-8.2) Albumin 2.3 g/dL (3.4-5.0) Albumin/Globulin Ratio 0.5 (1.0-1.7) Test 07/16/21 11:43 Glucose (Fingerstick) 114 mg/dL (70-99) Assessment and Plan Assessmemt and Plan Problems Medical Problems: (1) Dehydration Status: Acute (2) Mental status alteration Status: Acute (3) Pneumonia Status: Acute Comment Review of Relevant I have reviewed the following items amanda (where applicable) has been applied. Justifications for Admission Other Justification COVID-19 positive test (U07.1, COVID-19) with Acute Pneumonia (J12.89, Other viral pneumonia) (If respiratory failure or sepsis present, add as separate assessment) SIMONE ARGUELLO MD Jul 16, 2021 15:14
--- NOTE | 2021-07-16 15:51 | PDOC ---
PROGRESS NOTES Date of Service DATE: 07/16/21 TIME: 15:48 Subjective Subjective He is without new complaints. Minimal lower extremity pain. Vein mapping of both legs showed marginal right great saphenous vein for adequate bypass conduit. Left great saphenous vein was of better length and caliber, but it is unclear whether this will be adequate. Objective Objective Vital Signs Date Time Temp Pulse Resp B/P (MAP) Pulse Ox O2 Delivery O2 Flow Rate FiO2 07/16/21 11:09 97.3 70 16 129/80 (96) 95 Room Air 97.3 07/15/21 20:00 2.0 Intake and Output 07/16/21 06:59 Intake Total 600 ml Balance 600 ml Intake Oral 600 ml # Voids 2 Physical Exam Abdomen: Soft, No tenderness Heart: Regular rate Extremities: Other (Dry gangrene of toes on both feet and bilateral heel eschars. No significant peripheral edema at this time.) General: Alert, No acute distress Neck: Supple Assessment Assessment Problems Medical Problems: (1) Dehydration Status: Acute (2) Mental status alteration Status: Acute (3) Pneumonia Status: Acute Peripheral arterial disease with bilateral popliteal and proximal tibial artery occlusions Recovering from COVID-19 infection with improved encephalopathy Plan Plan of Care He has severe peripheral arterial occlusive disease leading to toe gangrene bilaterally. He also has gangrenous eschars on both heels. Angiogram demonstrated popliteal and tibial artery occlusion with collateral reconstitution of the posterior tibial arteries bilaterally. Vein mapping showed marginal great saphenous vein on the right with somewhat better left great saphenous vein. We will order upper extremity vein mapping. He is scheduled for bilateral popliteal and tibial thrombectomy with possible bypass. Questions and concerns answered. He elected to proceed tomorrow. Comment Review of Relevant I have reviewed the following items amanda (where applicable) has been applied. Labs Laboratory Tests Test 07/14/21 17:08 07/14/21 20:39 07/15/21 08:53 07/15/21 12:13 Glucose (Fingerstick) 86 mg/dL (70-99) 88 mg/dL (70-99) 102 mg/dL (70-99) 158 mg/dL (70-99) Test 07/15/21 17:16 07/15/21 20:52 07/16/21 04:30 07/16/21 07:48 Glucose (Fingerstick) 101 mg/dL (70-99) 120 mg/dL (70-99) 95 mg/dL (70-99) Sodium Level 141 mmol/L (136-145) Potassium Level 3.5 mmol/L (3.5-5.1) Chloride Level 105 mmol/L (98-107) Carbon Dioxide Level 25 mmol/L (21-32) Anion Gap 11 (6-14) Blood Urea Nitrogen 15 mg/dL (8-26) Creatinine 0.8 mg/dL (0.7-1.3) Estimated GFR (Cockcroft-Gault) 98.3 BUN/Creatinine Ratio 19 (6-20) Glucose Level 102 mg/dL (70-99) Calcium Level 8.1 mg/dL (8.5-10.1) Total Bilirubin 0.8 mg/dL (0.2-1.0) Aspartate Amino Transf (AST/SGOT) 49 U/L (15-37) Alanine Aminotransferase (ALT/SGPT) 98 U/L (16-63) Alkaline Phosphatase 71 U/L (46-116) Total Protein 6.8 g/dL (6.4-8.2) Albumin 2.3 g/dL (3.4-5.0) Albumin/Globulin Ratio 0.5 (1.0-1.7) Test 07/16/21 11:43 Glucose (Fingerstick) 114 mg/dL (70-99) Laboratory Tests Test 07/15/21 17:16 07/15/21 20:52 07/16/21 04:30 07/16/21 07:48 Glucose (Fingerstick) 101 mg/dL (70-99) 120 mg/dL (70-99) 95 mg/dL (70-99) Sodium Level 141 mmol/L (136-145) Potassium Level 3.5 mmol/L (3.5-5.1) Chloride Level 105 mmol/L (98-107) Carbon Dioxide Level 25 mmol/L (21-32) Anion Gap 11 (6-14) Blood Urea Nitrogen 15 mg/dL (8-26) Creatinine 0.8 mg/dL (0.7-1.3) Estimated GFR (Cockcroft-Gault) 98.3 BUN/Creatinine Ratio 19 (6-20) Glucose Level 102 mg/dL (70-99) Calcium Level 8.1 mg/dL (8.5-10.1) Total Bilirubin 0.8 mg/dL (0.2-1.0) Aspartate Amino Transf (AST/SGOT) 49 U/L (15-37) Alanine Aminotransferase (ALT/SGPT) 98 U/L (16-63) Alkaline Phosphatase 71 U/L (46-116) Total Protein 6.8 g/dL (6.4-8.2) Albumin 2.3 g/dL (3.4-5.0) Albumin/Globulin Ratio 0.5 (1.0-1.7) Test 07/16/21 11:43 Glucose (Fingerstick) 114 mg/dL (70-99) Medications Current Medications Sodium Chloride 1,000 ml @ 999 mls/hr 1X ONCE IV Last administered on 06/29/21at 19:10; Start 06/29/21 at 19:00; Stop 06/29/21 at 20:00; Status DC Dexamethasone Sodium Phosphate (Decadron) 10 mg 1X ONCE IV Last administered on 06/29/21at 20:30; Start 06/29/21 at 20:00; Stop 06/29/21 at 20:05; Status DC Sodium Chloride 1,000 ml @ 999 mls/hr 1X ONCE IV Last administered on 06/29/21at 20:30; Start 06/29/21 at 20:00; Stop 06/29/21 at 21:00; Status DC Ceftriaxone Sodium (Rocephin) 1 gm 1X ONCE IVP Last administered on 06/29/21at 20:29; Start 06/29/21 at 20:00; Stop 06/29/21 at 20:05; Status DC Azithromycin 250 ml @ 250 mls/hr 1X ONCE IV Last administered on 06/29/21at 20:00; Start 06/29/21 at 20:00; Stop 06/29/21 at 20:59; Status DC Sodium Chloride 1,000 ml @ 75 mls/hr [id number] IV Last administered on 06/30/21at 12:32; Start 06/29/21 at 20:45; Stop 06/30/21 at 20:44; Status DC Info (FLU VACCINE SCREEN per RX) 0.5 each 1X ONCE MC ; Start 07/01/21 at 09:00; Stop 07/01/21 at 09:01; Status DC Ascorbic Acid (Vitamin C) 3,000 mg TID PO Last administered on 07/16/21at 14:49; Start 06/30/21 at 21:00 Dexamethasone Sodium Phosphate (Decadron) 6 mg DAILY IVP Last administered on 07/10/21at 08:57; Start 06/30/21 at 16:00; Stop 07/10/21 at 12:29; Status DC Thiamine Mononitrate (Vitamin B-1) 300 mg DAILY PO Last administered on 07/16/21at 09:04; Start 06/30/21 at 16:00 Zinc Sulfate (Orazinc) 220 mg DAILY PO Last administered on 07/16/21at 09:05; Start 06/30/21 at 16:00 Sennosides (Senna) 17.2 mg PRN BID PRN PO CONSTIPATION; Start 06/30/21 at 15:15 Docusate Sodium (Colace) 100 mg PRN DAILY PRN PO HARD STOOLS; Start 06/30/21 at 15:15 Ondansetron HCl (Zofran) 4 mg PRN Q6HRS PRN IVP NAUSEA/VOMITING, 1st CHOICE; Start 06/30/21 at 15:15; Stop 07/05/21 at 14:02; Status DC Dextrose (Dextrose 50%-Water Syringe) 12.5 gm PRN Q15MIN PRN IV SEE COMMENTS; Start 06/30/21 at 15:15; Stop 07/05/21 at 12:45; Status DC Acetaminophen (Tylenol) 650 mg PRN Q4HRS PRN PO TEMP OVER 100.4F OR MILD PAIN; Start 06/30/21 at 15:15 Lorazepam (Ativan) 0.5 mg PRN Q6HRS PRN PO ANXIETY / AGITATION; Start 06/30/21 at 15:15; Stop 07/05/21 at 14:02; Status DC Lorazepam (Ativan Inj) 0.25 mg PRN Q4HRS PRN IV ANXIETY / AGITATION; Start 06/30/21 at 15:15; Stop 07/05/21 at 14:02; Status DC Enoxaparin Sodium (Lovenox 40mg Syringe) 40 mg Q24H SQ Last administered on 07/13/21at 17:20; Start 06/30/21 at 16:00; Stop 07/14/21 at 12:21; Status DC Prochlorperazine Edisylate (Compazine) 10 mg PRN Q6HRS PRN IV NAUSEA/VOMITING, 2nd CHOICE; Start 06/30/21 at 15:15; Stop 07/05/21 at 14:02; Status DC Diphenhydramine HCl (Benadryl) 25 mg PRN Q6HRS PRN IVP ITCHING; Start 06/30/21 at 15:15; Stop 07/05/21 at 14:02; Status DC Diphenhydramine HCl (Benadryl) 25 mg PRN Q6HRS PRN PO ITCHING; Start 06/30/21 at 15:15; Stop 07/05/21 at 14:02; Status DC Diphenhydramine HCl (Benadryl) 25 mg PRN QHS PRN PO INSOMNIA, 1ST CHOICE; Start 06/30/21 at 15:15; Stop 07/05/21 at 14:02; Status DC Zolpidem Tartrate (Ambien) 2.5 mg PRN QHS PRN PO INSOMNIA, 2ND CHOICE; Start 06/30/21 at 15:15; Stop 07/05/21 at 14:02; Status DC Pantoprazole Sodium (PROTONIX VIAL for IV PUSH) 40 mg DAILYAC IVP Last admini stered on 07/16/21at 09:05; Start 06/30/21 at 16:00 Amino Acids/ Electrolytes/ Dextrose 1,000 ml @ 80 mls/hr [id number] IV ; Start 07/04/21 at 09:15; Status UNV Dextrose/Lactated Ringer's 1,000 ml @ 80 mls/hr [id number] IV Last administered on 07/12/21at 06:27; Start 07/04/21 at 09:30; Stop 07/12/21 at 10:58; Status DC Insulin Human Lispro (HumaLOG) 0-5 UNITS TIDWMEALS SQ ; Start 07/05/21 at 17:00 Dextrose (Dextrose 50%-Water Syringe) 12.5 gm PRN Q15MIN PRN IV SEE COMMENTS Last administered on 07/09/21at 23:48; Start 07/05/21 at 12:45 Aspirin (Ecotrin) 81 mg [id number] PO Last administered on 07/16/21at 09:03; Start 07/11/21 at 15:00 Atorvastatin Calcium (Lipitor) 20 mg QHS PO Last administered on 07/15/21at 19:55; Start 07/11/21 at 21:00 Metoprolol Tartrate (Lopressor) 25 mg BID PO Last administered on 07/16/21at 09:05; Start 07/12/21 at 12:15 Heparin Sodium/ Sodium Chloride (HEPARIN for ARTERIAL LINE FLUSH) 1,000 unit 1X ONCE IART Last administered on 07/13/21at 13:00; Start 07/13/21 at 13:00; Stop 07/13/21 at 13:01; Status DC Heparin Sodium/ Sodium Chloride (HEPARIN for ARTERIAL LINE FLUSH) 1,000 unit 1X ONCE IART Last administered on 07/13/21at 13:00; Start 07/13/21 at 13:00; Stop 07/13/21 at 13:01; Status DC Midazolam HCl (Versed) 2 mg 1X ONCE IV Last administered on 07/13/21at 13:20; Start 07/13/21 at 13:00; Stop 07/13/21 at 13:01; Status DC Fentanyl Citrate (Fentanyl 2ml Vial) 100 mcg 1X ONCE IV Last administered on 07/13/21at 13:20; Start 07/13/21 at 13:00; Stop 07/13/21 at 13:01; Status DC Iodixanol (Visipaque 320) 100 ml 1X ONCE IART Last administered on 07/13/21at 13:50; Start 07/13/21 at 13:00; Stop 07/13/21 at 13:01; Status DC Lidocaine HCl (Lidocaine 1% 20ml Vial) 20 ml 1X ONCE INJ Last administered on 07/13/21at 13:22; Start 07/13/21 at 13:00; Stop 07/13/21 at 13:01; Status DC Nitroglycerin (Nitroglycerin) 200 mcg 1X ONCE IART Last administered on 07/13/21at 13:23; Start 07/13/21 at 13:30; Stop 07/13/21 at 13:35; Status DC Verapamil HCl (Verapamil) 2.5 mg 1X ONCE IART Last administered on 07/13/21at 13:23; Start 07/13/21 at 13:30; Stop 07/13/21 at 13:35; Status DC Heparin Sodium (Porcine) (Heparin Sodium) 2,500 unit 1X ONCE IART Last administered on 07/13/21at 13:30; Start 07/13/21 at 13:30; Stop 07/13/21 at 13:35; Status DC Potassium Chloride (Klor-Con) 20 meq 1X ONCE PO Last administered on 07/14/21at 11:48; Start 07/14/21 at 11:00; Stop 07/14/21 at 11:01; Status DC Enoxaparin Sodium (Lovenox 80mg Syringe) 80 mg Q12HR SQ Last administered on 07/16/21at 09:03; Start 07/14/21 at 13:00 Fentanyl Citrate (Fentanyl 2ml Vial) 25 mcg PRN Q5MIN PRN IVP MILD PAIN 1-3; Start 07/17/21 at 06:00; Stop 07/18/21 at 05:59 Fentanyl Citrate (Fentanyl 2ml Vial) 50 mcg PRN Q5MIN PRN IVP MODERATE PAIN 4- 6; Start 07/17/21 at 06:00; Stop 07/18/21 at 05:59 Morphine Sulfate (Morphine Sulfate) 1 mg PRN Q10MIN PRN IVP SEVERE PAIN 7-10; Start 07/17/21 at 06:00; Stop 07/18/21 at 05:59 Ringer's Solution 1,000 ml @ 30 mls/hr Q24H IV ; Start 07/17/21 at 06:00; Stop 07/17/21 at 17:59 Hydromorphone HCl (Dilaudid) 0.5 mg PRN Q10MIN PRN IVP SEVERE PAIN 7-10, 2nd CHOICE; Start 07/17/21 at 06:00; Stop 07/18/21 at 05:59 Prochlorperazine Edisylate (Compazine) 5 mg PACU PRN PRN IVP NAUSEA, MRX1; Start 07/17/21 at 06:00; Stop 07/18/21 at 05:59 Active Scripts Active No Active Prescriptions or Reported Medications Vitals/I & O Vital Sign - Last 24 Hours 07/15/21 07/15/21 07/15/21 07/15/21 19:40 19:56 20:00 23:35 Temp 97.4 97.5 97.4 97.5 Pulse 84 82 89 Resp 22 21 B/P (MAP) 165/91 (115) 147/90 (109) Pulse Ox 93 95 O2 Delivery Room Air Nasal Cannula Room Air O2 Flow Rate 2.0 07/16/21 07/16/21 07/16/21 07/16/21 03:45 07:00 08:15 09:05 Temp 97.7 97.0 97.7 97.0 Pulse 84 75 84 Resp 20 16 B/P (MAP) 153/91 (111) 132/79 (96) 153/91 Pulse Ox 95 96 O2 Delivery Room Air Room Air Room Air 07/16/21 11:09 Temp 97.3 97.3 Pulse 70 Resp 16 B/P (MAP) 129/80 (96) Pulse Ox 95 O2 Delivery Room Air Intake and Output 07/15/21 07/15/21 07/16/21 14:59 22:59 06:59 Intake Total 600 ml Balance 600 ml Justifications for Admission Other Justification COVID-19 positive test (U07.1, COVID-19) with Acute Pneumonia (J12.89, Other viral pneumonia) (If respiratory failure or sepsis present, add as separate assessment) HASMUKH KLINE MD Jul 16, 2021 15:51
--- NOTE | 2021-07-16 17:15 | RAD ---
US VENOUS MAPPING BILAT Indication: Preoperative evaluation for bypass conduit. Comparison study: None available. Discussion: Ultrasound evaluation of bilateral cephalic and basilic veins was performed. Images were submitted to PACS. The veins are patent and compressible. Measurements are given below in millimeters. Right upper extremity: Cephalic vein: High arm: Nonvisualized Mid arm: Nonvisualized Low arm: Nonvisualized Antecubital: Nonvisualized Forearm: 2 Wrist: 1 Basilic vein: High arm: 5 Mid arm: 2 Low arm: 1 Antecubital: 1 Forearm: 1 Wrist: Nonvisualized Left upper extremity: Cephalic vein: Nonvisualized Basilic vein: High arm: 4 Mid arm: 2 Low arm: 2 Antecubital: 1 Forearm: Nonvisualized Wrist: Nonvisualized Impression: 1. Nonvisualization of the left cephalic vein and proximal right cephalic vein due to small caliber. 2. Bilateral basilic vein measurements as above. Distal right and left basilic vein nonvisualized. Electronically signed by: Ozzy Beverly MD (07/16/2021 5:13 PM) [facility]
[2021-07-16 19:45] VITALS: BP 127/82
[2021-07-16] MEDS: ATORVASTATIN CALCIUM 20 MG TABLET PO SCH (21:01)
[2021-07-16 23:45] VITALS: BP 142/83
[2021-07-17 03:45] VITALS: BP 130/79
[2021-07-17 05:28] LABS: HEMATOCRIT 41.5 % (39.0-53.0); HEMOGLOBIN 14.1 g/dL (13.0-17.5); RED BLOOD COUNT 4.53 x10^6/uL (4.30-5.70); RED CELL DISTRIBUTION WIDTH 13.4 % (11.5-14.5); WHITE BLOOD COUNT 10.3 x10^3/uL (4.0-11.0)
[2021-07-17] MEDS ORDERED: PHENYLEPHRINE 10 MG/ML VIAL. ONE (05:34)
[2021-07-17] MEDS ORDERED: ePHEDrine PF IN SALINE 50 MG/10 ML SYRINGE. IV ONE (05:34)
[2021-07-17] MEDS ORDERED: SUCCINYLCHOLINE 200 MG/10 ML VIAL. ONE (05:35)
[2021-07-17] MEDS ORDERED: EPINEPHrine 1 MG/ML VIAL ONE (05:35)
[2021-07-17 05:54] LABS: ALBUMIN 2.2 g/dL (3.4-5.0); ALBUMIN/GLOBULIN RATIO 0.5 (1.0-1.7); CALCIUM 8.1 mg/dL (8.5-10.1); CREATININE 0.7 mg/dL (0.7-1.3); GFR 114.6; POTASSIUM 3.7 mmol/L (3.5-5.1); TOTAL BILIRUBIN 0.9 mg/dL (0.2-1.0); TOTAL PROTEIN 6.8 g/dL (6.4-8.2)
[2021-07-17] MEDS ORDERED: fentaNYL PF VIAL 100 MCG/2 ML VIAL IVP PRN ×2 (06:00)
[2021-07-17] MEDS ORDERED: PROCHLORPERAZINE 10 MG/2 ML VIAL. IVP PRN (06:00)
[2021-07-17] MEDS ORDERED: HYDROmorphone 2 MG/ML INJ. IVP PRN (06:00)
[2021-07-17] MEDS ORDERED: MORPHINE SULFATE 2 MG/ML INJ. IVP PRN (06:00)
[2021-07-17] MEDS ORDERED: IV RINGERS,LACTATED 1000ML 1,000 ML IV SCH (06:00)
[2021-07-17] MEDS ORDERED: SURGICEL FIBRILLAR 1X2 EACH. ONE (07:08)
[2021-07-17] MEDS ORDERED: PROTAMINE 50 MG/5 ML VIAL. IV ONE ×2 (07:08→07:35)
[2021-07-17] MEDS ORDERED: IOHEXOL 300 MG/ML 50 ML VIAL. ONE (07:08)
[2021-07-17] MEDS: PANTOPRAZOLE IV PUSH 40 MG VIAL. IVP SCH (07:30)
[2021-07-17] MEDS ORDERED: HEPARIN for IV BOLUS 10,000 UNIT/10 ML VIAL. ONE (07:35)
[2021-07-17] MEDS ORDERED: DEXAMETHASONE SOD PHOS 4 MG/ML VIAL ONE (07:35)
[2021-07-17] MEDS ORDERED: ONDANSETRON PF 4 MG/2 ML VIAL. ONE (07:35)
[2021-07-17] MEDS ORDERED: EPINEPHrine SYRINGE 1 MG/10 ML SYRINGE. ONE (07:35)
[2021-07-17] MEDS ORDERED: MIDAZOLAM HCL/PF 2 MG/2 ML VIAL. ONE (07:37)
[2021-07-17] MEDS ORDERED: fentaNYL PF VIAL 250 MCG/5 ML VIAL ONE (07:37)
[2021-07-17] MEDS ORDERED: HEPARIN SODIUM 5,000 UNIT in IV NORMAL SALINE 500ML BAG 500 ML IRR ONE (08:00)
[2021-07-17] MEDS: ASPIRIN ENTERIC COATED 81 MG TABLET.DR. PO SCH (08:00)
[2021-07-17] MEDS: INSULIN LISPRO 300 UNITS/3 ML VIAL. SQ SCH ×3 (08:00→16:43)
[2021-07-17] MEDS: ASCORBIC ACID 1,000 MG TABLET PO SCH ×3 (08:02→19:50)
[2021-07-17] MEDS: METOPROLOL TART IMMED RELEASE 25 MG TABLET. PO SCH ×2 (08:02→19:51)
[2021-07-17] MEDS: THIAMINE 100 MG TABLET. PO SCH (08:02)
[2021-07-17] MEDS: ZINC SULFATE 220 MG CAPSULE. PO SCH (08:02)
--- NOTE | 2021-07-17 08:03 | NUR ---
NURSING PATIENT TO OR THIS AM AT 0755. PT SIGNED CONSENTS IN PRESENCE OF THIS NURSE AND OR STAFF. HE IS ABLE TO ANSWER ALL ORIENTATION QUESTIONS APPROPRIATELY AND GIVE US A SIMPLE EXPLANATION OF THE SURGERY.
--- NOTE | 2021-07-17 08:04 | NUR ---
[facility] NON-ADMIN 2/2 PT OFF FLOOR FOR SURGERY.
--- NOTE | 2021-07-17 09:27 | NUR ---
SPOKE WITH DR DOTY THIS AM RE: CONSIDERING PT COVID RECOVERED. CONSIDERING THE DATE OF ADMISSION, THE PATIENT'S ROOM AIR STATUS, AND AFEBTILITY, HE FEELS COMFORTABLE CONSIDERING HIM RECOVERED AT THIS TIME.
[2021-07-17] MEDS ORDERED: SUGAMMADEX SODIUM 200 MG/2 ML VIAL. IVP ONE (09:30)
--- NOTE | 2021-07-17 10:37 | PDOC ---
[employer] PROGRESS NOTE Date of Service DOS: DATE: 07/17/21 TIME: 10:36 Chief Complaint Chief Complaint A/P: Confusion and lethargy, AMS Acute COVID-19 infection Acute infectious and metabolic encephalopathy IVORY due to vasomotor nephropathy improved Lactic acidemia Dysphagia Malnutrition Heel erythema on admit, poor nail care and dystrophic nails PAD - confirmed on arterial dopplers, may have COVID toes History of Present Illness History of Present Illness Mr Lambert is a 60-year-old male that presented 06/29/2021 via [facility] with decreased level of consciousness. Most of the history was obtained via EMS and patient's friend Reese [phone], who states that patient has been sick since about June 22 per Reese, he states that they both had cough cold head ache sinus type pain. Per Reese's report patient is okay during the day and very alert and orientated and at night he has a decreased alertness. Patient is unable to help with exam when asked questions he does deny any past medical history, surgeries, or any other health conditions. Reese who is his roommate collaborates any information gotten from the patient. Accu-Chek per EMS was 250, room air sat in the room was 88 to 90%. 07/07: not much improved, about the same. cont current. PULM following. we have no clinimix, cont D5 fluid, 07/08: more alert, can try ST again, if able to sit up, still very weak 07/09: much more alert, bedside swallow of water ok, sits upright, much stronger, will try clears if able, ST to follow. toes are worsening, now black, hannah consult podiatry to follow, 07/10: More alert. Working with speech and swallowing today. Off O2. Less confused. Bilateral toe ulcers assessed by podiatry today. 07/11: More alert, eating. Arterial Doppler was left popliteal and severe distal disease bilaterally. Still has a little bit of a cough. Less confused today. 07/12: Eating reasonably well. Tentative plans for angiogram for consideration of limb salvage bilateral feet tomorrow. Discussed with cardiology. He will need significant follow-up care likely eventual amputations. 07/13: N.p.o. for angiogram today with bilateral SFA occlusive disease and left popliteal disease with left posterior tibial artery with some flow otherwise occlusive disease per cardiology. Discussed vascular surgery consultation for consideration of definitive revascularization with likely bilateral transmetatarsal amputations. Still with a little bit of a cough. Shortness of breath 07/14: Seen bedside. Having some pain in his bilateral extremities. Shortness o f breath improved still with little bit of cough. Eating again. Amenable to revascularization and likely surgical debridement next week. Increasing thromboprophylaxis 07/15: Seen bedside. Not hypoxic. Cough is improving. He feels he is mental status is improved but he is definitely still mentating slowly. Complains of foot pain. He is contemplating surgical options but is okay with what ever the surgeons to choose for his likely lower extremity bypass tentatively planned for 07/17/202107/16: Bilateral foot pain still with cough but improving. Still is contemplating surgical options. 07/17 Patient off floor for surgery today. Chart evaluated. We will follow up with him after the procedure. Vitals/I&O Vitals/I&O: Vital Signs Date Time Temp Pulse Resp B/P (MAP) Pulse Ox O2 Delivery O2 Flow Rate FiO2 07/17/21 07:45 Room Air 07/17/21 03:45 97.2 78 18 130/79 (96) 98 97.2 I & O 07/16/21 07/16/21 07/17/21 15:00 23:00 07:00 Intake Total 230 ml 210 ml 50 ml Balance 230 ml 210 ml 50 ml Physical Exam Physical Exam: lethargic and weak General: Alert, No acute distress Heart: Regular rate Lungs: Clear Abdomen: Soft, No tenderness Extremities: Other (Dry gangrene of toes on both feet and bilateral heel eschars. No significant peripheral edema at this time.) Skin: Other (toes blackend, very poor nail care, dystrophic nails and fungus) Labs Labs: Laboratory Tests Test 07/16/21 11:43 07/16/21 16:39 07/16/21 21:28 07/17/21 04:45 Glucose (Fingerstick) 114 mg/dL (70-99) 98 mg/dL (70-99) 99 mg/dL (70-99) White Blood Count 10.3 x10^3/uL (4.0-11.0) Red Blood Count 4.53 x10^6/uL (4.30-5.70) Hemoglobin 14.1 g/dL (13.0-17.5) Hematocrit 41.5 % (39.0-53.0) Mean Corpuscular Volume 92 fL (79-100) Mean Corpuscular Hemoglobin 31 pg (25-35) Mean Corpuscular Hemoglobin Concent 34 g/dL (31-37) Red Cell Distribution Width 13.4 % (11.5-14.5) Platelet Count 207 x10^3/uL (140-400) Sodium Level 140 mmol/L (136-145) Potassium Level 3.7 mmol/L (3.5-5.1) Chloride Level 104 mmol/L (98-107) Carbon Dioxide Level 25 mmol/L (21-32) Anion Gap 11 (6-14) Blood Urea Nitrogen 12 mg/dL (8-26) Creatinine 0.7 mg/dL (0.7-1.3) Estimated GFR (Cockcroft-Gault) 114.6 BUN/Creatinine Ratio 17 (6-20) Glucose Level 96 mg/dL (70-99) Calcium Level 8.1 mg/dL (8.5-10.1) Total Bilirubin 0.9 mg/dL (0.2-1.0) Aspartate Amino Transf (AST/SGOT) 48 U/L (15-37) Alanine Aminotransferase (ALT/SGPT) 81 U/L (16-63) Alkaline Phosphatase 74 U/L (46-116) Total Protein 6.8 g/dL (6.4-8.2) Albumin 2.2 g/dL (3.4-5.0) Albumin/Globulin Ratio 0.5 (1.0-1.7) Assessment and Plan Assessmemt and Plan Problems Medical Problems: (1) Dehydration Status: Acute (2) Mental status alteration Status: Acute (3) Pneumonia Status: Acute Comment Review of Relevant I have reviewed the following items amanda (where applicable) has been applied. Medications: Current Medications Medications (Trade) Dose Ordered Sig/Vicente Route PRN Reason Start Time Stop Time Status Last Admin Dose Admin Ringer's Solution 1,000 ml @ 30 mls/hr Q24H IV 07/17/21 06:00 07/17/21 17:59 07/17/21 07:50 Cefazolin Sodium 1 gm/Sodium Chloride 500 ml @ 500 mls/hr 1X ONCE IRR 07/17/21 08:00 07/17/21 08:59 DC 07/17/21 08:57 Heparin Sodium (Porcine) 5000 unit/Sodium Chloride 505 ml @ 505 mls/hr 1X ONCE IRR 07/17/21 08:00 07/17/21 08:59 DC 07/17/21 08:57 Cefazolin Sodium 1 gm/Sodium Chloride 500 ml @ 500 mls/hr 1X ONCE IRR 07/17/21 10:30 07/17/21 11:29 07/17/21 10:30 Justifications for Admission Other Justification COVID-19 positive test (U07.1, COVID-19) with Acute Pneumonia (J12.89, Other viral pneumonia) (If respiratory failure or sepsis present, add as separate assessment) SIMONE COOPER MD Jul 17, 2021 10:37
[2021-07-17] MEDS ORDERED: SURGICEL FIBRILLAR 1X2 EACH. TP ONE (11:23)
[2021-07-17] MEDS ORDERED: fentaNYL PF VIAL 100 MCG/2 ML VIAL ONE (11:54)
[2021-07-17] MEDS ORDERED: HYDROmorphone 2 MG/ML INJ. ONE (11:54)
[2021-07-17] MEDS ORDERED: MORPHINE SULFATE 2 MG/ML INJ. ONE (11:55)
[2021-07-17] MEDS ORDERED: GLYCOPYRROLATE 1 MG/5 ML SYRINGE. ONE (12:00)
--- NOTE | 2021-07-17 12:01 | PDOC4 ---
BRIEF OPERATIVE NOTE Date: Jul 17, 2021 Pre-Op Diagnosis 1. Covid Pneumonia 2. Bilateral popliteal and tibial occlusive disease/thrombus 3. Gangrene bilateral heels and toes Post-Op Diagnosis Same Procedure Performed Bilateral popliteal and tibial thrombectomies with bovine pericardial patch angioplasty Surgeon Malvin Mooney MD Blanching Machine Operator ISAIAH Brasher Anesthesiologist Tor Anesthesia Type: General Blood Loss 150mL Specimens Obtained Bilateral LE arterial thrombus Findings Palpable DP and good PT doppler signal post op on the LEFT Good PT doppler signal on the RIGHT post op Complications None Operative Note See dictated op note FRANCIS ALLAN Jul 17, 2021 12:01
[2021-07-17] MEDS ORDERED: HEPARIN 25,000UTS/250ML PREMIX 250 ML IV SCH ×2 (12:15)
--- NOTE | 2021-07-17 12:46 | OP ---
DATE OF SURGERY: 07/17/2021 PREOPERATIVE DIAGNOSES: 1. 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 2. History of COVID pneumonia. 3. Gangrene of all toes and heels. POSTOPERATIVE DIAGNOSES: 1. 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 2. History of COVID pneumonia. 3. Gangrene of all toes and heels. OPERATION PERFORMED: Bilateral popliteal and tibial selective thrombectomies with bovine pericardial patch angioplasty. SURGEON: Malvin Mooney MD SQL SERVER DBA: ISAIAH Brasher ANESTHESIA: General. INDICATIONS: This is a 60-year-old gentleman who was admitted approximately 2 weeks ago with COVID pneumonia. He has developed digital gangrene. Angiographic evaluation by Dr. Hickman demonstrated occlusion of the distal superficial femoral arteries with reconstitution of the at least one tibial vessel bilaterally. The operation, risks and benefits were explained. He had vein mapping preprocedure. He appeared to have a somewhat suitable vein in the left leg, not the right leg or either arm. OPERATIVE FINDINGS: The patient had subacute thrombus in the distal superficial femoral, popliteal and proximal tibial vessels. The clot was somewhat adherent; however, was able to be thrombectomized. Following the procedure, the patient had a palpable left dorsal pedal pulse and excellent flow in the posterior tibial artery on the right. He also had Doppler flow over the right distal anterior tibial and left posterior tibial arteries, but the flow was best in the left dorsal pedal artery, which was palpable and the right posterior tibial artery. DESCRIPTION OF PROCEDURE: The patient was placed in the supine position and a general anesthetic was administered. COVID precautions were taken. A timeout was called and the correct patient, correct operation, correct operative sites were all verified. The patient received 2 grams of IV antibiotics. Both legs were prepped and draped. Prior to this, the saphenous vein was marked on the left leg and the position of the saphenous vein was marked on the skin with a marker. Both legs were then prepped and draped circumferentially from the groin to the forefeet. Starting with the left leg, the incision was made just below the knee and the saphenous vein, which had been marked, was harvested for approximately 4-5 inches and carefully protected. The incision was then carried down through the fascia and the neurovascular popliteal bundle was exposed. The popliteal artery, the anterior tibial and the tibioperoneal trunk vessels were all selectively dissected circumferentially and vessel loops were placed. The patient then was bolused with 5000 units of heparin. A longitudinal arteriotomy was made of the distal popliteal artery with incision extending a bit onto the tibioperoneal trunk. There appeared to be some combination of fresh thrombus as well as more organized thrombus. Using a #4 thrombectomy catheter, the catheter was placed proximally and after 2-3 passes, there was a significant a combination of acute and subacute thrombus. Following thrombectomy, there was excellent pulsatile inflow. Heparinized saline through an #8 feeding tube was then injected retrograde and then the vessel was reoccluded with the vessel loop. Selective tibial thrombectomies then performed with a #3 thrombectomy catheter. The catheter went to the hilt both in the anterior tibial and tibioperoneal trunk vessels. There was good backbleeding following removal of thrombus from these vessels and further attempts revealed no further thrombus. The popliteal artery was then inspected for any sort of adherent material, which there was not. The arteriotomy then was closed longitudinally with a bovine pericardial patch using 6-0 Prolene. Prior to completing the closure, the popliteal artery was flushed antegrade and then the tibial vessels bled retrograde. The patch closure was completed and flow was restored to the left leg. Doppler evaluation demonstrated excellent flow in both pedal vessels. A gauze pack was then placed in the popliteal space and a similar procedure was then carried out on the right leg. The incision was made below the knee and again the popliteal space was entered and the popliteal artery exposed proximally and encircled with a vessel loop and then distally the anterior tibial and tibioperoneal trunks were isolated and encircled with vessel loops. There was some injury to a posterior vein branch which was secured with 6-0 Prolene. Arteriotomy was then made in the distal popliteal artery extending a little bit onto the tibioperoneal trunk. Thrombectomies were then performed of the superficial femoral artery proximally. Excellent inflow was obtained and a fair amount of thrombus both acute and subacute was obtained. Similarly, the catheter was placed in the tibioperoneal trunk to the ankle and a fair amount of clot was retrieved followed by a backbleeding. Similar procedure was carried out on the anterior tibial artery; however, catheter could not be passed for more than 3-4 inches down on the right. The patient then was rebolused with 3000 units of heparin and patch closure was accomplished in a similar manner using bovine pericardial patch and 6-0 Prolene. Prior to completing the patch closure, the vessels were flushed first antegrade then backbled retrograde and the closure was completed. Hemostasis was excellent and again the Doppler flow was assessed as mentioned above. No protamine was given. Wounds were irrigated with saline and closed with multiple layers of 2-0 and 3-0 Vicryl and skin with janet and sterile dressings were applied. The patient will require some digital amputations and some heel debridements probably later in the week. He will be continued on heparin as he appears to be thrombogenic likely due to his COVID history. ESTIMATED BLOOD LOSS: 200 mL DRAINS: None. SPECIMEN: Thrombus obtained from both legs sent to pathology. [place] DR: Eileen TID: [id number]
[2021-07-17 12:55] VITALS: BP 117/70
[2021-07-17] MEDS: IV NORMAL SALINE 1000ML BAG 1,000 ML IV SCH ×2 (13:00→22:00)
[2021-07-17] MEDS ORDERED: HEPARIN 25,000UTS/250ML PREMIX 250 ML IV PRN (13:15)
--- NOTE | 2021-07-17 13:40 | NUR ---
SS following up with discharge planning. SS reviewed pt chart and discussed with pt RN. Pt is currently on room air. COVID19 positive. PT/OT recommended intermediate unit. Pt on IV Cefazolin. Pt had surgery today for bilateral popliteal and tibial selective thrombectomies with bovine pericardial patch angioplasty. Self pay. [facility] following. SS spoke with Nadia in [facility] and was notified that at this time pt does not qualify for disability/Medicaid. SS to notify [facility] if medical needs change. Not ready. SS will continue to follow for discharge planning.
[2021-07-17 14:42] VITALS: BP 126/74
[2021-07-17 19:45] VITALS: BP 124/74
[2021-07-17] MEDS: ATORVASTATIN CALCIUM 20 MG TABLET PO SCH (19:50)
[2021-07-17] MEDS: oxyCODONE/APAP 5/325 1 TAB TABLET PO PRN (19:51)
[2021-07-17] MEDS: MORPHINE SULFATE 2 MG/ML INJ. IVP PRN (19:51)
[2021-07-17 22:45] VITALS: BP 136/73
[2021-07-18 02:50] VITALS: BP 116/69
[2021-07-18] MEDS: oxyCODONE/APAP 5/325 1 TAB TABLET PO PRN (04:06)
[2021-07-18 06:34] LABS: HEMOGLOBIN 11.3 g/dL (13.0-17.5); RED BLOOD COUNT 3.71 x10^6/uL (4.30-5.70); RED CELL DISTRIBUTION WIDTH 13.5 % (11.5-14.5); WHITE BLOOD COUNT 15.5 x10^3/uL (4.0-11.0)
[2021-07-18 07:00] VITALS: BP 147/80
[2021-07-18 07:05] LABS: ALBUMIN 2.1 g/dL (3.4-5.0); ALBUMIN/GLOBULIN RATIO 0.5 (1.0-1.7); CALCIUM 7.6 mg/dL (8.5-10.1); CREATININE 1.1 mg/dL (0.7-1.3); GFR 68.1; POTASSIUM 4.2 mmol/L (3.5-5.1); TOTAL BILIRUBIN 0.6 mg/dL (0.2-1.0); TOTAL PROTEIN 6.4 g/dL (6.4-8.2)
[2021-07-18] MEDS: INSULIN LISPRO 300 UNITS/3 ML VIAL. SQ SCH ×3 (08:00→17:00)
[2021-07-18] MEDS: ASCORBIC ACID 1,000 MG TABLET PO SCH ×3 (09:58→21:34)
[2021-07-18] MEDS: ZINC SULFATE 220 MG CAPSULE. PO SCH (09:59)
[2021-07-18] MEDS: ASPIRIN ENTERIC COATED 81 MG TABLET.DR. PO SCH (09:59)
[2021-07-18] MEDS: METOPROLOL TART IMMED RELEASE 25 MG TABLET. PO SCH ×2 (09:59→21:35)
[2021-07-18] MEDS: THIAMINE 100 MG TABLET. PO SCH (09:59)
[2021-07-18] MEDS: PANTOPRAZOLE IV PUSH 40 MG VIAL. IVP SCH (10:00)
[2021-07-18] MEDS: IV NORMAL SALINE 1000ML BAG 1,000 ML IV SCH ×2 (10:00→21:35)
--- NOTE | 2021-07-18 10:51 | PDOC ---
Provider Note Date of Service: DATE: 07/18/21 TIME: 10:41 Provider Note Provider Note Vascular surgery S: Patient is lying in bed. He denies any significant pain this morning. He reports his legs feel heavy and he feels weak in general. No other complaints O: Vital signs stable, some slight tachycardia, afebrile Respirations nonlabored, room air Right leg incision is clean and intact with minimal oozing proximally. There is some firmness to the proximal incision in the dependent position. No erythema Left leg incision is clean, intact with some minimal oozing proximally. No erythema. He has a palpable DP pulse on the left and a very good PT Doppler signal on the right. I was unable to get a anterior tib Doppler signal on the right, similar to postoperatively. He has moderate swelling to the lower extremities, his toes are mostly unchanged other than the swelling with dry gangrene to the tips of all of his toes and dry gangrene to the medial aspect of both of his heels. He is able to dorsiflex and plantar flex both feet, R is slightly weaker. Wiggles toes. Can lift legs for brief periods. Labs: PTT was greater than 150 this morninghad the nurse hold the heparin drip for 1 hour and then recheck PTT. WBC 15.5, Hgb 11.3 A/P: 1. 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 2. History of COVID pneumonia. 3. 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 Postop day 1 of bilateral pop/tibial thrombectomies with patch angioplasty. - Patency on exam - Needs to remain anticoagulated. No significant bleeding on exam today, Hgb st able. High PTT this am, hold one hour, recheck PTT then will start heparin gtt protocol for full therapeutic anticoagulation after recheck PTT later this am. - Strict heel offloading and floating, elevate legs. - Will allow a little longer for demarcation after revascularization prior to surgical intervention to his feet. But will likely need prior to his discharge. - Keep incisions clean and dry - PT, although nonweight bearing on both feet for now, needs to work on strength with exercises in bed as he has atrophied and is very weak from past 2 weeks. Justicifation of Admission Dx: Justifications for Admission: Justification of Admission Dx: Yes FRANCIS ALLAN Jul 18, 2021 10:51
[2021-07-18 11:00] VITALS: BP 128/71
--- NOTE | 2021-07-18 11:07 | NUR ---
SS following up with discharge planning. SS reviewed pt chart and discussed with pt RN. Pt is currently on room air. COVID19 positive. Pt had surgery on 07/17/2021 with Vascular. PO diet. Heparin drip. PT/OT recommended longterm unit. Pt non-weight bearing to both feet. Probable need for amputation. Self pay. [facility] following. SS will continue to follow for discharge planning.
[2021-07-18] MEDS ORDERED: HEPARIN for IV BOLUS 10,000 UNIT/10 ML VIAL. IV PRN ×2 (11:15)
--- NOTE | 2021-07-18 11:20 | PDOC ---
[employer] PROGRESS NOTE Date of Service DOS: DATE: 07/18/21 TIME: 11:19 Chief Complaint Chief Complaint A/P: Confusion and lethargy, AMS Acute COVID-19 infection Acute infectious and metabolic encephalopathy IVORY due to vasomotor nephropathy improved Lactic acidemia Dysphagia Malnutrition Heel erythema on admit, poor nail care and dystrophic nails PAD - confirmed on arterial dopplers, may have COVID toes History of Present Illness History of Present Illness Mr Lambert is a 60-year-old male that presented 06/29/2021 via [facility] with decreased level of consciousness. Most of the history was obtained via EMS and patient's friend Reese [phone], who states that patient has been sick since about June 22 per Reese, he states that they both had cough cold head ache sinus type pain. Per Reese's report patient is okay during the day and very alert and orientated and at night he has a decreased alertness. Patient is unable to help with exam when asked questions he does deny any past medical history, surgeries, or any other health conditions. Reese who is his roommate collaborates any information gotten from the patient. Accu-Chek per EMS was 250, room air sat in the room was 88 to 90%. 07/07: not much improved, about the same. cont current. PULM following. we have no clinimix, cont D5 fluid, 07/08: more alert, can try ST again, if able to sit up, still very weak 07/09: much more alert, bedside swallow of water ok, sits upright, much stronger, will try clears if able, ST to follow. toes are worsening, now black, hannah consult podiatry to follow, 07/10: More alert. Working with speech and swallowing today. Off O2. Less confused. Bilateral toe ulcers assessed by podiatry today. 07/11: More alert, eating. Arterial Doppler was left popliteal and severe distal disease bilaterally. Still has a little bit of a cough. Less confused today. 07/12: Eating reasonably well. Tentative plans for angiogram for consideration of limb salvage bilateral feet tomorrow. Discussed with cardiology. He will need significant follow-up care likely eventual amputations. 07/13: N.p.o. for angiogram today with bilateral SFA occlusive disease and left popliteal disease with left posterior tibial artery with some flow otherwise occlusive disease per cardiology. Discussed vascular surgery consultation for consideration of definitive revascularization with likely bilateral transmetatarsal amputations. Still with a little bit of a cough. Shortness of breath 07/14: Seen bedside. Having some pain in his bilateral extremities. Shortness o f breath improved still with little bit of cough. Eating again. Amenable to revascularization and likely surgical debridement next week. Increasing thromboprophylaxis 07/15: Seen bedside. Not hypoxic. Cough is improving. He feels he is mental status is improved but he is definitely still mentating slowly. Complains of foot pain. He is contemplating surgical options but is okay with what ever the surgeons to choose for his likely lower extremity bypass tentatively planned for 07/17/202107/16: Bilateral foot pain still with cough but improving. Still is contemplating surgical options. 07/17 Patient off floor for surgery today. Chart evaluated. We will follow up with him after the procedure. 07/18 Patient did and examined at bedside. He is postop day 1 from bilateral thrombectomies yesterday. Looks like he may need more surgery prior to discharge. Continue heparin drip. Suspect leukocytosis today secondary to surgery. Continue current. Vitals/I&O Vitals/I&O: Vital Signs Date Time Temp Pulse Resp B/P (MAP) Pulse Ox O2 Delivery O2 Flow Rate FiO2 07/18/21 09:59 93 147/80 07/18/21 08:00 Room Air 07/18/21 07:00 97.8 20 99 97.8 07/17/21 14:42 97.0 I & O 0 07/17/21 07/17/21 07/18/21 15:00 23:00 07:00 Intake Total 1550 ml 180 ml 100 ml Output Total 800 ml 200 ml 250 ml Balance 750 ml -20 ml -150 ml Physical Exam Physical Exam: lethargic and weak General: Alert, No acute distress Heart: Regular rate Lungs: Clear Abdomen: Soft, No tenderness Extremities: Other (Dry gangrene of toes on both feet and bilateral heel eschars. No significant peripheral edema at this time.) Skin: Other (toes blackend, very poor nail care, dystrophic nails and fungus) Labs Labs: Laboratory Tests Test 07/17/21 12:10 07/17/21 12:52 07/17/21 16:32 07/18/21 04:10 Glucose (Fingerstick) 99 mg/dL (70-99) 95 mg/dL (70-99) 108 mg/dL (70-99) White Blood Count 15.5 x10^3/uL (4.0-11.0) Red Blood Count 3.71 x10^6/uL (4.30-5.70) Hemoglobin 11.3 g/dL (13.0-17.5) Hematocrit 35.0 % (39.0-53.0) Mean Corpuscular Volume 94 fL (79-100) Mean Corpuscular Hemoglobin 30 pg (25-35) Mean Corpuscular Hemoglobin Concent 32 g/dL (31-37) Red Cell Distribution Width 13.5 % (11.5-14.5) Platelet Count 265 x10^3/uL (140-400) Activated Partial Thromboplast Time > 150 SEC (24-38) Sodium Level 138 mmol/L (136-145) Potassium Level 4.2 mmol/L (3.5-5.1) Chloride Level 105 mmol/L (98-107) Carbon Dioxide Level 25 mmol/L (21-32) Anion Gap 8 (6-14) Blood Urea Nitrogen 16 mg/dL (8-26) Creatinine 1.1 mg/dL (0.7-1.3) Estimated GFR (Cockcroft-Gault) 68.1 BUN/Creatinine Ratio 15 (6-20) Glucose Level 126 mg/dL (70-99) Calcium Level 7.6 mg/dL (8.5-10.1) Total Bilirubin 0.6 mg/dL (0.2-1.0) Aspartate Amino Transf (AST/SGOT) 48 U/L (15-37) Alanine Aminotransferase (ALT/SGPT) 51 U/L (16-63) Alkaline Phosphatase 64 U/L (46-116) Total Protein 6.4 g/dL (6.4-8.2) Albumin 2.1 g/dL (3.4-5.0) Albumin/Globulin Ratio 0.5 (1.0-1.7) Test 07/18/21 08:22 07/18/21 10:54 Glucose (Fingerstick) 127 mg/dL (70-99) 117 mg/dL (70-99) Assessment and Plan Assessmemt and Plan Problems Medical Problems: (1) Dehydration Status: Acute (2) Mental status alteration Status: Acute (3) Pneumonia Status: Acute Comment Review of Relevant I have reviewed the following items amanda (where applicable) has been applied. Medications: Current Medications Medications (Trade) Dose Ordered Sig/Vicente Route PRN Reason Start Time Stop Time Status Last Admin Dose Admin Sodium Chloride 1,000 ml @ 100 mls/hr Q10H IV 07/17/21 12:00 07/18/21 10:00 Cellulose (Surgicel Fibrillar 1x2) 1 each STK-MED ONCE TP 07/17/21 11:23 07/17/21 11:26 DC 07/17/21 11:23 Cefazolin Sodium/ Dextrose 50 ml @ 100 mls/hr Q8HRS IV 07/17/21 14:00 07/17/21 22:29 DC 07/17/21 19:52 Heparin Sodium/ Dextrose 250 ml @ 10 mls/hr CONT PRN PRN IV SEE PROTOCOL 07/17/21 13:15 07/18/21 11:06 DC 07/17/21 13:00 Justifications for Admission Other Justification COVID-19 positive test (U07.1, COVID-19) with Acute Pneumonia (J12.89, Other viral pneumonia) (If respiratory failure or sepsis present, add as separate assessment) SIMONE COOPER MD Jul 18, 2021 11:20
--- NOTE | 2021-07-18 12:28 | PDOC ---
DEEPALI BRAR CARDIAC TECHNICIAN 07/18/21 1228: CARDIO Progress Notes Date and Time Date of Service 07/18/21 Time of Evaluation 1220 Subjective Subjective: No Chest Pain, No shortness of breath, No Palpitations, No Dizziness Vitals Vitals Vital Signs Date Time Temp Pulse Resp B/P (MAP) Pulse Ox O2 Delivery O2 Flow Rate FiO2 07/18/21 11:00 98.4 91 20 128/71 (90) 95 Room Air 98.4 07/17/21 14:42 97.0 Weight Weight [ ] Input and Output Intake and Output Intake and Output 07/18/21 07:00 Intake Total 1830 ml Output Total 1250 ml Balance 580 ml Intake Oral 280 ml IV Total 1550 ml Output Urine Total 1150 ml Estimated Blood Loss 100 ml # Voids 1 Laboratory Labs Laboratory Tests Test 07/17/21 12:52 07/17/21 16:32 07/18/21 04:10 07/18/21 08:22 Glucose (Fingerstick) 95 mg/dL (70-99) 108 mg/dL (70-99) 127 mg/dL (70-99) White Blood Count 15.5 x10^3/uL (4.0-11.0) Red Blood Count 3.71 x10^6/uL (4.30-5.70) Hemoglobin 11.3 g/dL (13.0-17.5) Hematocrit 35.0 % (39.0-53.0) Mean Corpuscular Volume 94 fL (79-100) Mean Corpuscular Hemoglobin 30 pg (25-35) Mean Corpuscular Hemoglobin Concent 32 g/dL (31-37) Red Cell Distribution Width 13.5 % (11.5-14.5) Platelet Count 265 x10^3/uL (140-400) Activated Partial Thromboplast Time > 150 SEC (24-38) Sodium Level 138 mmol/L (136-145) Potassium Level 4.2 mmol/L (3.5-5.1) Chloride Level 105 mmol/L (98-107) Carbon Dioxide Level 25 mmol/L (21-32) Anion Gap 8 (6-14) Blood Urea Nitrogen 16 mg/dL (8-26) Creatinine 1.1 mg/dL (0.7-1.3) Estimated GFR (Cockcroft-Gault) 68.1 BUN/Creatinine Ratio 15 (6-20) Glucose Level 126 mg/dL (70-99) Calcium Level 7.6 mg/dL (8.5-10.1) Total Bilirubin 0.6 mg/dL (0.2-1.0) Aspartate Amino Transf (AST/SGOT) 48 U/L (15-37) Alanine Aminotransferase (ALT/SGPT) 51 U/L (16-63) Alkaline Phosphatase 64 U/L (46-116) Total Protein 6.4 g/dL (6.4-8.2) Albumin 2.1 g/dL (3.4-5.0) Albumin/Globulin Ratio 0.5 (1.0-1.7) Test 07/18/21 10:54 07/18/21 11:35 Glucose (Fingerstick) 117 mg/dL (70-99) Activated Partial Thromboplast Time 36 SEC (24-38) Physical Exam HEENT: Neck Supple W Full Motion Chest: Symmetric LUNGS: Clear to Auscultation Heart: RRR (SR) Abdomen: Soft N/T Extremities: Other ( Drsg intact to bi LE. dry gangrene to the tips of all of toes and dry gangrene to the medial aspect of both heels. Bilateral rook boots intact ) Neurology: alert, oriented, follow commands Assessment Assessment 1. Acute respiratory failure due to acute COVID infection 2. Encephalopathy; CT head without acute findings. improved 3. PAD, subacute thrombotic occlusion of the bilateral popliteal and proximal tibial vessels. s/p bilateral pop/tibial thrombectomy with patch angioplasty 4. Gangrenous changes of bilateral toes and heels 5. Hypertension; controlled Recommendations ASA, statin, BB therapy Continue anticoagulation Supportive care Justicifation of Admission Dx: Justifications for Admission: Justification of Admission Dx: Yes MALAIKA HOLLIS MD 07/18/21 2020: CARDIO Progress Notes Plan Plan The patient was seen and interviewed as well as examined at the bedside. The chart was reviewed. The case was discussed. Agree with the plan of care. DEEPALI BRAR APRN Jul 18, 2021 12:28 MALAIKA HOLLIS MD Jul 18, 2021 20:20
[2021-07-18 15:00] VITALS: BP 124/63
--- NOTE | 2021-07-18 17:09 | PATHOLOGY ---
[facility] Accession Number: [id number] . 01 Material submitted: . leg - BILATERAL LOWER EXTREMITY THROMBUS. Modifiers: bilateral . 01 Clinical history: . PERIPHERAL ARTERIAL DISEASE WITH BILATERAL POPLITEAL AND PROXIMAL TIBIAL ARTERY OCCLUSIONS, GANGRENE TOES AND HEELS BILATERALLY BILATERAL POPLITEAL TO TIBIAL THROMBECTOMIES . 02 Diagnosis: Bilateral lower extremity thrombectomies: - Thrombi. (JPM:pit; 07/18/2021) QTP 07/18/2021 1145 Local . 02 Electronically signed: . Tyrone Love MD, Pathologist NPI- [id number] . 01 Gross description: . The specimen is received in formalin, labeled "Darrius Whelan, bilateral lower extremity thrombus" and consists of multiple red-brown cylindrical rubbery tissues aggregating 4.5 x 4.5 x 1.0 cm. Sectioning reveals dusky and diffusely hemorrhagic cut surfaces. Represented sections are submitted in A1.(COEUR D'ALENE; 07/17/2021) DKA/DKA 07/17/2021 1506 Local . 02 Pathologist provided ICD-10: I82.90 . 02 CPT . 763853 Specimen Comment: A courtesy copy of this report has been sent to [phone], [phone] Specimen Comment: [id number] Specimen Comment: Report sent to / DR ARGUELLO Performed at: 01 [facility] [address], [place] [id number] MD Lai Osman MD Phone: [phone] Performed at: 02 [facility] [address], [place] [id number] MD Tyrone Love MD Phone: [phone]
[2021-07-18 19:00] VITALS: BP 140/75
--- NOTE | 2021-07-18 20:05 | NUR ---
pt in bed assessment completed vss poc explained call light in reach bed alarm set will resume care and continue to monitor pt.
[2021-07-18] MEDS: ATORVASTATIN CALCIUM 20 MG TABLET PO SCH (21:35)
[2021-07-18] MEDS: HEPARIN 25,000UTS/250ML PREMIX 250 ML IV PRN (21:37)
[2021-07-18 23:10] VITALS: BP 125/59
[2021-07-19 03:00] VITALS: BP 112/59
[2021-07-19] MEDS: oxyCODONE/APAP 5/325 1 TAB TABLET PO PRN ×3 (03:19→21:45)
[2021-07-19] MEDS: PANTOPRAZOLE IV PUSH 40 MG VIAL. IVP SCH (05:22)
[2021-07-19] MEDS: IV NORMAL SALINE 1000ML BAG 1,000 ML IV SCH ×2 (05:22→21:45)
[2021-07-19 07:00] VITALS: BP 117/66
[2021-07-19] MEDS: INSULIN LISPRO 300 UNITS/3 ML VIAL. SQ SCH ×3 (08:00→17:00)
--- NOTE | 2021-07-19 10:19 | PDOC ---
[facility] [facility] PROGRESS NOTE Date of Service DOS: DATE: 07/19/21 TIME: 10:17 Chief Complaint Chief Complaint A/P: Confusion and lethargy, AMS Acute COVID-19 infection Acute infectious and metabolic encephalopathy IVORY due to vasomotor nephropathy improved Lactic acidemia Dysphagia Malnutrition Heel erythema on admit, poor nail care and dystrophic nails PAD - confirmed on arterial dopplers, may have COVID toes History of Present Illness History of Present Illness Mr Lambert is a 60-year-old male that presented 06/29/2021 via [facility] with decreased level of consciousness. Most of the history was obtained via EMS and patient's friend Reese [phone], who states that patient has been sick since about June 22 per Reese, he states that they both had cough cold head ache sinus type pain. Per Reese's report patient is okay during the day and very alert and orientated and at night he has a decreased alertness. Patient is unable to help with exam when asked questions he does deny any past medical history, surgeries, or any other health conditions. Reese who is his roommate collaborates any information gotten from the patient. Accu-Chek per EMS was 250, room air sat in the room was 88 to 90%. 07/07: not much improved, about the same. cont current. PULM following. we have no clinimix, cont D5 fluid, 07/08: more alert, can try ST again, if able to sit up, still very weak 07/09: much more alert, bedside swallow of water ok, sits upright, much stronger, will try clears if able, ST to follow. toes are worsening, now black, hannah consult podiatry to follow, 07/10: More alert. Working with speech and swallowing today. Off O2. Less confused. Bilateral toe ulcers assessed by podiatry today. 07/11: More alert, eating. Arterial Doppler was left popliteal and severe distal disease bilaterally. Still has a little bit of a cough. Less confused today. 07/12: Eating reasonably well. Tentative plans for angiogram for consideration of limb salvage bilateral feet tomorrow. Discussed with cardiology. He will need significant follow-up care likely eventual amputations. 07/13: N.p.o. for angiogram today with bilateral SFA occlusive disease and left popliteal disease with left posterior tibial artery with some flow otherwise occlusive disease per cardiology. Discussed vascular surgery consultation for consideration of definitive revascularization with likely bilateral transmetatarsal amputations. Still with a little bit of a cough. Shortness of breath 07/14: Seen bedside. Having some pain in his bilateral extremities. Shortness o f breath improved still with little bit of cough. Eating again. Amenable to revascularization and likely surgical debridement next week. Increasing thromboprophylaxis 07/15: Seen bedside. Not hypoxic. Cough is improving. He feels he is mental status is improved but he is definitely still mentating slowly. Complains of foot pain. He is contemplating surgical options but is okay with what ever the surgeons to choose for his likely lower extremity bypass tentatively planned for 07/17/202107/16: Bilateral foot pain still with cough but improving. Still is contemplating surgical options. 07/17 Patient off floor for surgery today. Chart evaluated. We will follow up with him after the procedure. 07/18 Patient did and examined at bedside. He is postop day 1 from bilateral thrombectomies yesterday. Looks like he may need more surgery prior to discharge. Continue heparin drip. Suspect leukocytosis today secondary to surgery. Continue current. 07/19 Patient evaluated examined at bedside. He was working with physical therapy when seen. Continuing heparin drip. Recheck CBC today. Cardiology following vascular following. Will likely need further surgery prior to discharge. Vitals/I&O Vitals/I&O: Vital Signs Date Time Temp Pulse Resp B/P (MAP) Pulse Ox O2 Delivery O2 Flow Rate FiO2 07/19/21 07:00 96.9 102 16 117/66 (83) 97 Room Air 96.9 07/19/21 03:49 97.0 I & O 07/18/21 07/18/21 07/19/21 15:00 23:00 07:00 Intake Total 1200 ml 130 ml 50 ml Output Total 350 ml Balance 1200 ml 130 ml -300 ml Physical Exam Physical Exam: lethargic and weak General: Alert, No acute distress Heart: Regular rate Lungs: Clear Abdomen: Soft, No tenderness Extremities: Other (Dry gangrene of toes on both feet and bilateral heel eschars. No significant peripheral edema at this time.) Skin: Other (toes blackend, very poor nail care, dystrophic nails and fungus) Labs Labs: Laboratory Tests Test 07/18/21 10:54 07/18/21 11:35 07/18/21 17:22 07/18/21 18:30 Glucose (Fingerstick) 117 mg/dL (70-99) 109 mg/dL (70-99) Activated Partial Thromboplast Time 36 SEC (24-38) Heparin Anti-Xa Act, Unfractionated 0.25 IU/mL (0.30-0.70) Test 07/18/21 21:34 07/19/21 02:00 07/19/21 07:35 07/19/21 07:53 Glucose (Fingerstick) 97 mg/dL (70-99) 93 mg/dL (70-99) Heparin Anti-Xa Act, Unfractionated 0.50 IU/mL (0.30-0.70) 0.52 IU/mL (0.30-0.70) Assessment and Plan Assessmemt and Plan Problems Medical Problems: (1) Dehydration Status: Acute (2) Mental status alteration Status: Acute (3) Pneumonia Status: Acute Comment Review of Relevant I have reviewed the following items amanda (where applicable) has been applied. Medications: Current Medications Medications (Trade) Dose Ordered Sig/Vicente Route PRN Reason Start Time Stop Time Status Last Admin Dose Admin Heparin Sodium/ Dextrose 250 ml @ 13.264 mls/ hr CONT PRN IV PER PROTOCOL 07/18/21 11:15 07/18/21 21:37 Heparin Sodium (Porcine) (Heparin Sodium) 1,250 unit PRN Q6HRS PRN IV FOR UFH LEVEL 0.2 - 0.29 07/18/21 11:15 07/18/21 20:10 Justifications for Admission Other Justification COVID-19 positive test (U07.1, COVID-19) with Acute Pneumonia (J12.89, Other viral pneumonia) (If respiratory failure or sepsis present, add as separate assessment) SIMONE COOPER MD Jul 19, 2021 10:19
[2021-07-19 10:36] LABS: BASO # 0.1 x10^3/uL (0.0-0.2); BASO % 1 % (0-3); EOS % 0 % (0-3); HEMATOCRIT 22.3 % (39.0-53.0); HEMOGLOBIN 7.3 g/dL (13.0-17.5); LYMPH # 2.6 x10^3/uL (1.0-4.8); LYMPH % 21 % (24-48); MEAN CORPUSCULAR HEMOGLOBIN 31 pg (25-35); MEAN CORPUSCULAR HGB CONC 33 g/dL (31-37); MEAN CORPUSCULAR VOLUME 94 fL (79-100); MONO # 1.1 x10^3/uL (0.0-1.1); MONO % 9 % (0-9); NEUT # 8.6 x10^3/uL (1.8-7.7); NEUT % 69 % (31-73); PLATELET COUNT 216 x10^3/uL (140-400); RED BLOOD COUNT 2.38 x10^6/uL (4.30-5.70); RED CELL DISTRIBUTION WIDTH 13.2 % (11.5-14.5); WHITE BLOOD COUNT 12.4 x10^3/uL (4.0-11.0)
[2021-07-19 10:38] VITALS: BP 139/70
--- NOTE | 2021-07-19 11:49 | PDOC ---
Provider Note Date of Service: DATE: 07/19/21 TIME: 11:42 Provider Note Provider Note Vascular surgery S: Patient is lying in bed. Seen with Dr. Davila this morning. He denies any significant pain this morning. Reports being worn out after working with PT. No other complaints O: Vital signs stable, some slight tachycardia, afebrile Respirations nonlabored, room air Right leg incision is clean, dry and intact. There is some firmness to the proximal incision in the dependent position. No erythema Left leg incision is clean, dry and intact . No erythema. He has moderate edema to BLE. He has a palpable DP pulse on the left and a very good PT Doppler signal on the right. We were unable to get a anterior tib Doppler signal on the right, similar to postoperatively. He has moderate swelling to the lower extremities, his toes are mostly unchanged other than the swelling with dry gangrene to the tips of all of his toes and dry gangrene to the medial aspect of both of his heels. Some moisture and skin breakdown to right 5th toe interdigit space. He is able to dorsiflex and plantar flex both feet, R is slightly weaker. Wiggles toes. Can lift legs for brief periods. A/P: 1. 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 2. History of COVID pneumonia. 3. 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 Pt seen with Dr. Davila POD#2 of bilateral pop/tibial thrombectomies with patch angioplasty - Patency on exam - Needs to remain anticoagulated. Continue therapeutic heparin gtt protocol. - Strict heel offloading and floating, elevate legs. - Will allow more time for further demarcation of his toes, his right foot may not require TMA if can dry up some more. There is improvement. Will anticipate surgery for feet sometime next week. Pt to remain inpatient while progressing from revasc and awaiting surgery to feet. - Keep incisions clean and dry - Continue PT, although nonweight bearing on both feet for now, needs to work on strength with exercises in bed as he has atrophied and is very weak from past 2 weeks. Justicifation of Admission Dx: Justifications for Admission: Justification of Admission Dx: Yes FRANCIS ALLAN Jul 19, 2021 11:49
--- NOTE | 2021-07-19 12:02 | PDOC ---
DEEPALI BRAR STEAM PRESSER 07/19/21 1202: CARDIO Progress Notes Date and Time Date of Service 07/19/21 Time of Evaluation 1200 Subjective Subjective: No Chest Pain, No shortness of breath, No Palpitations, No Dizziness Vitals Vitals Vital Signs Date Time Temp Pulse Resp B/P (MAP) Pulse Ox O2 Delivery O2 Flow Rate FiO2 07/19/21 10:38 98.4 106 16 139/70 (93) 98 Room Air 98.4 07/19/21 03:49 97.0 Weight Weight [ ] Input and Output Intake and Output Intake and Output 07/19/21 06:59 Intake Total 1380 ml Output Total 350 ml Balance 1030 ml Intake Oral 150 ml IV Total 1230 ml Output Urine Total 350 ml Laboratory Labs Laboratory Tests Test 07/18/21 17:22 07/18/21 18:30 07/18/21 21:34 07/19/21 02:00 Glucose (Fingerstick) 109 mg/dL (70-99) 97 mg/dL (70-99) Heparin Anti-Xa Act, Unfractionated 0.25 IU/mL (0.30-0.70) 0.50 IU/mL (0.30-0.70) Test 07/19/21 07:35 07/19/21 07:53 07/19/21 11:29 White Blood Count 12.4 x10^3/uL (4.0-11.0) Red Blood Count 2.38 x10^6/uL (4.30-5.70) Hemoglobin 7.3 g/dL (13.0-17.5) Hematocrit 22.3 % (39.0-53.0) Mean Corpuscular Volume 94 fL (79-100) Mean Corpuscular Hemoglobin 31 pg (25-35) Mean Corpuscular Hemoglobin Concent 33 g/dL (31-37) Red Cell Distribution Width 13.2 % (11.5-14.5) Platelet Count 216 x10^3/uL (140-400) Neutrophils (%) (Auto) 69 % (31-73) Lymphocytes (%) (Auto) 21 % (24-48) Monocytes (%) (Auto) 9 % (0-9) Eosinophils (%) (Auto) 0 % (0-3) Basophils (%) (Auto) 1 % (0-3) Neutrophils # (Auto) 8.6 x10^3/uL (1.8-7.7) Lymphocytes # (Auto) 2.6 x10^3/uL (1.0-4.8) Monocytes # (Auto) 1.1 x10^3/uL (0.0-1.1) Eosinophils # (Auto) 0.0 x10^3/uL (0.0-0.7) Basophils # (Auto) 0.1 x10^3/uL (0.0-0.2) Heparin Anti-Xa Act, Unfractionated 0.52 IU/mL (0.30-0.70) Glucose (Fingerstick) 93 mg/dL (70-99) 96 mg/dL (70-99) Physical Exam HEENT: Neck Supple W Full Motion Chest: Symmetric LUNGS: Clear to Auscultation Heart: RRR (SR) Abdomen: Soft N/T Extremities: Other ( Drsg intact to bi LE. dry gangrene to the tips of all of toes and dry gangrene to the medial aspect of both heels. Bilateral rook boots intact ) Neurology: alert, oriented, follow commands Assessment Assessment 1. Acute respiratory failure due to acute COVID infection. improved 2. Encephalopathy; CT head without acute findings. improved 3. PAD, subacute thrombotic occlusion of the bilateral popliteal and proximal tibial vessels. s/p bilateral pop/tibial thrombectomy with patch angioplasty 4. Gangrenous changes of bilateral toes and heels; will require bilateral amputations in near future 5. Hypertension; controlled 6. Anemia; hgb drift to 7.3 Recommendations ASA, statin, BB therapy Continue anticoagulation Transfuse for hgb < 7 Ongoing support Justicifation of Admission Dx: Justifications for Admission: Justification of Admission Dx: Yes MALAIKA HOLLIS MD 07/19/21 1737: CARDIO Progress Notes Plan Plan The patient was seen and interviewed as well as examined at the bedside. The chart was reviewed. The case was discussed. Agree with the plan of care. DEEPALI BRAR APRN Jul 19, 2021 12:02 MALAIKA HOLLIS MD Jul 19, 2021 17:37
[2021-07-19] MEDS: ASPIRIN ENTERIC COATED 81 MG TABLET.DR. PO SCH (12:09)
[2021-07-19] MEDS: METOPROLOL TART IMMED RELEASE 25 MG TABLET. PO SCH ×2 (12:10→21:45)
[2021-07-19] MEDS: ASCORBIC ACID 1,000 MG TABLET PO SCH ×3 (12:10→21:45)
[2021-07-19] MEDS: THIAMINE 100 MG TABLET. PO SCH (12:10)
[2021-07-19] MEDS: ZINC SULFATE 220 MG CAPSULE. PO SCH (12:10)
--- NOTE | 2021-07-19 12:22 | NUR ---
SS following up with discharge planning. SS reviewed pt chart and discussed with pt RN. Pt is currently on room air. COVID19 positive. Heparin drip. Cardiology and Vascular following. Pt non-weight bearing to both feet at this time. Per Vascular, probable surgery next week for feet. Probable amputations needed. Not ready. Self pay. Med Assist following. SS will continue to follow for discharge planning.
[2021-07-19 15:00] VITALS: BP 137/65
[2021-07-19 19:00] VITALS: BP 148/63
[2021-07-19] MEDS: ATORVASTATIN CALCIUM 20 MG TABLET PO SCH (21:45)
[2021-07-19] MEDS: HEPARIN 25,000UTS/250ML PREMIX 250 ML IV PRN (21:46)
[2021-07-19 23:30] VITALS: BP 122/58
[2021-07-20] VITALS (13 sets, daily range): BP systolic 97–134; BP diastolic 51–64
[2021-07-20 04:58] LABS: RED BLOOD COUNT 1.83 x10^6/uL (4.30-5.70); RED CELL DISTRIBUTION WIDTH 13.5 % (11.5-14.5); WHITE BLOOD COUNT 12.2 x10^3/uL (4.0-11.0)
[2021-07-20 05:01] LABS: HEMATOCRIT 17.1 % (39.0-53.0); HEMOGLOBIN 5.6 g/dL (13.0-17.5)
[2021-07-20] MEDS: PANTOPRAZOLE IV PUSH 40 MG VIAL. IVP SCH (05:37)
[2021-07-20] MEDS: INSULIN LISPRO 300 UNITS/3 ML VIAL. SQ SCH ×3 (08:00→17:00)
[2021-07-20] MEDS: IV NORMAL SALINE 1000ML BAG 1,000 ML IV SCH ×3 (08:51→21:52)
[2021-07-20] MEDS: ZINC SULFATE 220 MG CAPSULE. PO SCH (08:52)
[2021-07-20] MEDS: ASPIRIN ENTERIC COATED 81 MG TABLET.DR. PO SCH (08:52)
[2021-07-20] MEDS: METOPROLOL TART IMMED RELEASE 25 MG TABLET. PO SCH ×2 (08:52→21:54)
[2021-07-20] MEDS: THIAMINE 100 MG TABLET. PO SCH (08:52)
[2021-07-20] MEDS: ASCORBIC ACID 1,000 MG TABLET PO SCH ×3 (09:26→21:53)
[2021-07-20] MEDS: MORPHINE SULFATE 2 MG/ML INJ. IVP PRN (09:38)
--- NOTE | 2021-07-20 09:53 | PDOC ---
Provider Note Date of Service: DATE: 07/20/21 TIME: 09:43 Provider Note Provider Note Vascular surgery S: Patient hgb dropped to 5.6 this am. Reports increased pain to right lower leg specifically. No other complaints. O: Vital signs stable, afebrile Respirations nonlabored, room air Right leg incision is clean, dry and intact. There is increased firmness to the proximal incision in the dependent position along calf. Increased ecchymosis, slight oozing from incision Left leg incision is clean, dry and intact . No erythema. Calf soft. He has moderate edema to BLE. His feet are warm bilaterally, toes seem to be slowly improving/demarcating. He is able to dorsiflex and plantar flex both feet, R is slightly weaker (not new). Wiggles toes. Can lift legs for brief periods. A/P: 1. 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 2. History of COVID pneumonia. 3. 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 POD#3 of bilateral pop/tibial thrombectomies with patch angioplasty - Hold heparin gtt. Stat duplex RLE for hematoma, concern for possible venous bleed. NPO for now. Discussed with RN. Discussed with Dr. Mooney. - Continue plan for allowing more time for further demarcation of his toes. Will anticipate surgery for feet sometime next week. - Continue PT, although nonweight bearing on both feet for now, needs to work on strength with exercises in bed as he has atrophied and is very weak from past 2 weeks. Justicifation of Admission Dx: Justifications for Admission: Justification of Admission Dx: Yes FRANCIS ALLAN Jul 20, 2021 09:53
--- NOTE | 2021-07-20 11:03 | RAD ---
Limited ultrasound evaluation of the right lower extremity below the knee. INDICATION: Hematoma. Recent thrombectomy. COMPARISON STUDY: Bilateral lower extremity angiography July 13, 2021 Discussion: Focused sonographic evaluation of the medial aspect of the right lower extremity below th e knee was performed. There is a somewhat heterogenous hypoechoic collection in the subcutaneous tiss ues measuring 5.6 x 1.2 x 2.1 cm. No internal blood flow is identified within this collection. A cesia lar finding is seen in the popliteal fossa measuring 4.1 x 1.0 x 2.6 cm. The popliteal fossa collecti on appears somewhat less defined. The appearance are consistent with hematoma. Right popliteal artery and vein appear to be grossly patent. No pseudoaneurysm or other sonographic findings suggest active bleeding is identified. Impression: 1. 2 small fluid collections one within the medial right leg, and a second small popliteal fossa. Fin dings are consistent with the clinical history of hematoma. 2. Grossly patent right popliteal vein and artery. No pseudoaneurysm or overt sonographic evidence of active bleeding is identified Electronically signed by: Prakash Nance MD (07/20/2021 11:01 AM) [id number]
--- NOTE | 2021-07-20 11:21 | PDOC ---
DEEPALI BRAR MANAGED SERVICES SALES CONSULTANT 07/20/21 1121: CARDIO Progress Notes Date and Time Date of Service 07/20/21 Time of Evaluation 1115 Subjective Subjective: No Chest Pain, No shortness of breath, No Palpitations, No Dizziness Vitals Vitals Vital Signs Date Time Temp Pulse Resp B/P (MAP) Pulse Ox O2 Delivery O2 Flow Rate FiO2 07/20/21 10:08 95 Room Air 07/20/21 08:52 92 130/61 07/20/21 07:00 97.9 18 97.9 07/19/21 22:15 97.0 Weight Weight [ ] Input and Output Intake and Output Intake and Output 07/20/21 07:00 Intake Total 560 ml Output Total 1410 ml Balance -850 ml Intake Oral 560 ml Output Urine Total 1410 ml Laboratory Labs Laboratory Tests Test 07/19/21 11:29 07/19/21 17:11 07/19/21 20:55 07/20/21 04:20 Glucose (Fingerstick) 96 mg/dL (70-99) 81 mg/dL (70-99) 84 mg/dL (70-99) White Blood Count 12.2 x10^3/uL (4.0-11.0) Red Blood Count 1.83 x10^6/uL (4.30-5.70) Hemoglobin 5.6 g/dL (13.0-17.5) Hematocrit 17.1 % (39.0-53.0) Mean Corpuscular Volume 94 fL (79-100) Mean Corpuscular Hemoglobin 31 pg (25-35) Mean Corpuscular Hemoglobin Concent 33 g/dL (31-37) Red Cell Distribution Width 13.5 % (11.5-14.5) Platelet Count 218 x10^3/uL (140-400) Heparin Anti-Xa Act, Unfractionated 0.45 IU/mL (0.30-0.70) Test 07/20/21 07:31 Glucose (Fingerstick) 69 mg/dL (70-99) Physical Exam HEENT: Neck Supple W Full Motion Chest: Symmetric LUNGS: Clear to Auscultation Heart: RRR (SR) Abdomen: Soft N/T Extremities: Other (2+ RLE and 1+ LLE edema. dry gangrene to the tips of all of toes and dry gangrene to the medial aspect of bi heels. Bilateral rook boots intact ) Neurology: alert, oriented, follow commands Assessment Assessment 1. Acute respiratory failure due to acute COVID infection. improved 2. Encephalopathy; CT head without acute findings. improved 3. PAD, subacute thrombotic occlusion of the bilateral popliteal and proximal tibial vessels. s/p bilateral pop/tibial thrombectomy with patch angioplasty 4. Gangrenous changes of bilateral toes and heels; will require bilateral amputations in near future 5. Hypertension; controlled 6. Anemia; hgb drift to 5.7. Note with RLE hematoma. Heparin held. Plans for hematoma evacuation later today. Recommendations Statin, BB therapy Hold ASA with bleeding Transfuse as warranted Ongoing support Justicifation of Admission Dx: Justifications for Admission: Justification of Admission Dx: Yes MALAIKA HOLLIS MD 07/20/21 1736: CARDIO Progress Notes Plan Plan The patient was seen and interviewed as well as examined at the bedside. The chart was reviewed. The case was discussed. Agree with the plan of care. May consider CT of the abdomen pelvis but will defer to the vascular surgery service DEEPALI BRAR APRN Jul 20, 2021 11:21 MALAIKA HOLLIS MD Jul 20, 2021 17:36
--- NOTE | 2021-07-20 11:44 | PDOC ---
[facility] PROGRESS NOTE Date of Service DOS: DATE: 07/20/21 TIME: 11:42 Chief Complaint Chief Complaint A/P: Confusion and lethargy, AMS Acute COVID-19 infection Acute infectious and metabolic encephalopathy IVORY due to vasomotor nephropathy improved Lactic acidemia Dysphagia Malnutrition Heel erythema on admit, poor nail care and dystrophic nails PAD - confirmed on arterial dopplers, may have COVID toes History of Present Illness History of Present Illness Mr Lambert is a 60-year-old male that presented 06/29/2021 via [facility] with decreased level of consciousness. Most of the history was obtained via EMS and patient's friend Reese [phone], who states that patient has been sick since about June 22 per Reese, he states that they both had cough cold head ache sinus type pain. Per Reese's report patient is okay during the day and very alert and orientated and at night he has a decreased alertness. Patient is unable to help with exam when asked questions he does deny any past medical history, surgeries, or any other health conditions. Reese who is his roommate collaborates any information gotten from the patient. Accu-Chek per EMS was 250, room air sat in the room was 88 to 90%. 07/07: not much improved, about the same. cont current. PULM following. we have no clinimix, cont D5 fluid, 07/08: more alert, can try ST again, if able to sit up, still very weak 07/09: much more alert, bedside swallow of water ok, sits upright, much stronger, will try clears if able, ST to follow. toes are worsening, now black, hannah consult podiatry to follow, 07/10: More alert. Working with speech and swallowing today. Off O2. Less confused. Bilateral toe ulcers assessed by podiatry today. 07/11: More alert, eating. Arterial Doppler was left popliteal and severe distal disease bilaterally. Still has a little bit of a cough. Less confused today. 07/12: Eating reasonably well. Tentative plans for angiogram for consideration of limb salvage bilateral feet tomorrow. Discussed with cardiology. He will need significant follow-up care likely eventual amputations. 07/13: N.p.o. for angiogram today with bilateral SFA occlusive disease and left popliteal disease with left posterior tibial artery with some flow otherwise occlusive disease per cardiology. Discussed vascular surgery consultation for consideration of definitive revascularization with likely bilateral transmetatarsal amputations. Still with a little bit of a cough. Shortness of breath 07/14: Seen bedside. Having some pain in his bilateral extremities. Shortness o f breath improved still with little bit of cough. Eating again. Amenable to revascularization and likely surgical debridement next week. Increasing thromboprophylaxis 07/15: Seen bedside. Not hypoxic. Cough is improving. He feels he is mental status is improved but he is definitely still mentating slowly. Complains of foot pain. He is contemplating surgical options but is okay with what ever the surgeons to choose for his likely lower extremity bypass tentatively planned for 07/17/202107/16: Bilateral foot pain still with cough but improving. Still is contemplating surgical options. 07/17 Patient off floor for surgery today. Chart evaluated. We will follow up with him after the procedure. 07/18 Patient did and examined at bedside. He is postop day 1 from bilateral thrombectomies yesterday. Looks like he may need more surgery prior to discharge. Continue heparin drip. Suspect leukocytosis today secondary to surgery. Continue current. 07/19 Patient evaluated examined at bedside. He was working with physical therapy when seen. Continuing heparin drip. Recheck CBC today. Cardiology following vascular following. Will likely need further surgery prior to discharge. 07/20 Seen at bedside. Having RLE pain and had Hgb drop overnight. Will transfuse. Stop heparin drip for now. Seen by vascular, hematoma evacuation ordered. serial Hgb. Vitals/I&O Vitals/I&O: Vital Signs Date Time Temp Pulse Resp B/P (MAP) Pulse Ox O2 Delivery O2 Flow Rate FiO2 07/20/21 10:08 95 Room Air 07/20/21 08:52 92 130/61 07/20/21 07:00 97.9 18 97.9 07/19/21 22:15 97.0 l I & O 07/19/21 07/19/21 07/20/21 15:00 23:00 07:00 Intake Total 360 ml 200 ml Output Total 260 ml 1150 ml Balance 100 ml 200 ml -1150 ml Physical Exam Physical Exam: lethargic and weak General: Alert, No acute distress Heart: Regular rate Lungs: Clear Abdomen: Soft, No tenderness Extremities: Other (Dry gangrene of toes on both feet and bilateral heel eschars. No significant peripheral edema at this time.) Skin: Other (toes blackend, very poor nail care, dystrophic nails and fungus) Labs Labs: Laboratory Tests Test 07/19/21 17:11 07/19/21 20:55 07/20/21 04:20 07/20/21 07:31 Glucose (Fingerstick) 81 mg/dL (70-99) 84 mg/dL (70-99) 69 mg/dL (70-99) White Blood Count 12.2 x10^3/uL (4.0-11.0) Red Blood Count 1.83 x10^6/uL (4.30-5.70) Hemoglobin 5.6 g/dL (13.0-17.5) Hematocrit 17.1 % (39.0-53.0) Mean Corpuscular Volume 94 fL (79-100) Mean Corpuscular Hemoglobin 31 pg (25-35) Mean Corpuscular Hemoglobin Concent 33 g/dL (31-37) Red Cell Distribution Width 13.5 % (11.5-14.5) Platelet Count 218 x10^3/uL (140-400) Heparin Anti-Xa Act, Unfractionated 0.45 IU/mL (0.30-0.70) Assessment and Plan Assessmemt and Plan Problems Medical Problems: (1) Dehydration Status: Acute (2) Mental status alteration Status: Acute (3) Pneumonia Status: Acute Comment Review of Relevant I have reviewed the following items amanda (where applicable) has been applied. Justifications for Admission Other Justification COVID-19 positive test (U07.1, COVID-19) with Acute Pneumonia (J12.89, Other viral pneumonia) (If respiratory failure or sepsis present, add as separate assessment) SIMONE COOPER MD Jul 20, 2021 11:44
--- NOTE | 2021-07-20 12:20 | NUR ---
Wound Care Wound Type/Assessment: Pt seen for wound care follow up for multiple wounds, see wound assessments. Pt's toes on bilateral feet are black and necrotic with some purple discoloration in the periwound, bilateral heels with necrotic/eschar covering, skin intact, no drainage noted. Pt's scrotal area has cleared, with just some redness and moisture/yeast, would benefit from Nystatin powder. Pt's bilateral buttocks peeling and abraded, no open wounds, per se, noted, redness and moisture with satellite rash on buttocks suggesting yeast, would also benefit from Nystatin powder mixed with calazime cream. Treatment Recommendations/Plan: Continue painting toes and heels with betadine until Vascular surgery next week, weave Aquacel AG strips between toes, Rooke boots to BLE. Calazime cream with Nystatin powder to buttocks, Nystatin to reddened groin areas. Education provided: to pt re: POC Offloading surface/device: Rooke boots, pt declining to turn/reposition at this time. Recommended Referrals/Tests: defer to Vascular Discharge Recommendations for dressings: will await surgery next week, defer to Vascular
--- NOTE | 2021-07-20 12:45 | NUR ---
SS following up with discharge planning. SS reviewed pt chart and discussed with pt RN. Pt is currently on room air. COVID19 recovered. Heparin discontinued. Pt is non weight bearing to both feet. Pt getting blood today. Pt having Vascular procedure today for right lower leg exploration and hematoma evacuation. Pt to have surgeries for amputations on both feet next week. Self pay. [facility] following. Nadia from [employer] initiating process for disability application. Not ready. SS will continue to follow for discharge planning.
[2021-07-20] MEDS ORDERED: PROPOFOL 10 MG/ML (20ML) VIAL. IV ONE (14:06)
[2021-07-20] MEDS ORDERED: fentaNYL PF VIAL 100 MCG/2 ML VIAL ONE (14:07)
[2021-07-20] MEDS ORDERED: LIDOCAINE 1% PF 5 ML VIAL. ONE (14:07)
[2021-07-20 15:12] LABS: HEMOGLOBIN 7.2 g/dL (13.0-17.5); RED BLOOD COUNT 2.41 x10^6/uL (4.30-5.70); RED CELL DISTRIBUTION WIDTH 13.9 % (11.5-14.5)
[2021-07-20] MEDS ORDERED: SURGICEL FIBRILLAR 1X2 EACH. ONE (16:04)
[2021-07-20] MEDS ORDERED: PROCHLORPERAZINE 10 MG/2 ML VIAL. IVP PRN (16:15)
[2021-07-20] MEDS ORDERED: MORPHINE SULFATE 2 MG/ML INJ. IVP PRN (16:15)
[2021-07-20] MEDS ORDERED: INSULIN LISPRO 100 UNIT/ML 3ML VIAL for OP,RR ONLY. SQ PRN (16:15)
[2021-07-20] MEDS ORDERED: fentaNYL PF VIAL 100 MCG/2 ML VIAL IVP PRN ×2 (16:15)
[2021-07-20] MEDS ORDERED: HYDROmorphone 2 MG/ML INJ. IVP PRN (16:15)
--- NOTE | 2021-07-20 16:30 | PDOC4 ---
BRIEF OPERATIVE NOTE Date: Jul 20, 2021 Pre-Op Diagnosis Right leg hematoma status post bilateral lower extremity thrombectomy Post-Op Diagnosis Same Procedure Performed Right lower leg hematoma evacuation Surgeon Malvin Mooney MD Customer Service Consultant ISAIAH Brasher Anesthesia Type: General Blood Loss Indeterminate - appeared to be all hematoma, no active bleeding found Specimens Obtained None Findings Large amount of hematoma removed, no active bleeding found Complications None Operative Note See dictated op note FRANCIS ALLAN Jul 20, 2021 16:30
[2021-07-20] MEDS ORDERED: HYDROmorphone 2 MG/ML INJ. ONE (16:50)
--- NOTE | 2021-07-20 17:27 | OP ---
DATE OF SURGERY: 07/20/2021 PREOPERATIVE DIAGNOSES: 1. Tense hematoma, right popliteal fossa, status post right popliteal and tibial thrombectomy 3 days ago. 2. Coagulopathy. POSTOPERATIVE DIAGNOSES: 1. Tense hematoma, right popliteal fossa, status post right popliteal and tibial thrombectomy 3 days ago. 2. Coagulopathy. OPERATION PERFORMED: Exploration of right popliteal fossa with evacuation of tense hematoma, irrigation with drain placement. SURGEON: Malvin Mooney MD DANCE ARTIST: ISAIAH Brasher ANESTHESIA: General. INDICATIONS: This is a 60-year-old gentleman who had bilateral popliteal and tibial thrombectomies on 07/17. He was fully heparinized following the procedure and as such has developed a hematoma in the right popliteal fossa, which had become progressively larger with a tense finding on physical examination. His hemoglobin also dropped significantly. His anticoagulation was discontinued and he is recommended to go to the operating room for exploration. OPERATIVE FINDINGS: The patient had a fair amount of old blood in the popliteal fossa extending into the posterior compartment. There was no evidence of active bleeding. Following evacuation of the hematoma and decompression with irrigation, hemostatic agents were placed as well as a drain. He continues to have a palpable popliteal pulse and a viable foot, which we are awaiting demarcation of the gangrenous toes. DESCRIPTION OF PROCEDURE: The patient was placed in the supine position and a general anesthetic was administered. Timeout was called. The patient received IV antibiotics. His hemoglobin initially was 5.1 and he received 1 unit of packed red blood cells followed by another. His most recent hemoglobin is 7.1. A timeout was called. The right leg was then prepped and draped. The jesica were removed from the popliteal incision, which was then opened. There was a fair amount of tense hematoma there, which was evacuated. The hematoma extended into the posterior compartment, which accounted for the tense calf. The hematoma was evacuated and the popliteal artery was exposed. There was a venous injury distally and this was inspected and there was no active bleeding from this. The patient had a palpable popliteal pulse. The wound was then copiously irrigated with saline irrigation. Following evacuation of hematoma and packing for a few minutes, a fully perforated Milton-Lindo drain was placed within the wound space extended into the posterior compartment where the hematoma had extended. This was brought out through a proximal small stab incision and secured with a 3-0 nylon. The popliteal wound was then approximated in layers with 2-0 Vicryl. Jesica were applied. A compression dressing was then applied. The patient was taken to the recovery room in satisfactory condition. All sponge and needle counts were reported as correct. ESTIMATED BLOOD LOSS: Indeterminate as the blood that was evacuated was old, but probably at least 500 mL. DRAINS: Milton-Lindo to bulb suction. SPECIMEN: Large amount of acute and subacute thrombus. RCA/XU DR: JESSICA/jaye TID: [id number]
--- NOTE | 2021-07-20 18:24 | NUR ---
Assumed care of patient from TOM Coto. Agree with previous nurse assessment. Will continue to monitor.
[2021-07-20] MEDS: oxyCODONE/APAP 5/325 1 TAB TABLET PO PRN (21:53)
[2021-07-20] MEDS: ATORVASTATIN CALCIUM 20 MG TABLET PO SCH (21:53)
[2021-07-21 03:33] VITALS: BP 121/61
[2021-07-21 04:51] LABS: HEMATOCRIT 24.4 % (39.0-53.0); HEMOGLOBIN 8.1 g/dL (13.0-17.5); RED BLOOD COUNT 2.63 x10^6/uL (4.30-5.70); WHITE BLOOD COUNT 11.3 x10^3/uL (4.0-11.0)
[2021-07-21] MEDS: PANTOPRAZOLE IV PUSH 40 MG VIAL. IVP SCH (05:21)
[2021-07-21 07:00] VITALS: BP 166/78
[2021-07-21] MEDS: INSULIN LISPRO 300 UNITS/3 ML VIAL. SQ SCH ×3 (08:00→17:00)
[2021-07-21] MEDS: IV NORMAL SALINE 1000ML BAG 1,000 ML IV SCH (10:38)
[2021-07-21 11:00] VITALS: BP 177/103
[2021-07-21] MEDS: ASCORBIC ACID 1,000 MG TABLET PO SCH ×3 (11:10→22:13)
[2021-07-21] MEDS: THIAMINE 100 MG TABLET. PO SCH (11:10)
[2021-07-21] MEDS: METOPROLOL TART IMMED RELEASE 25 MG TABLET. PO SCH ×2 (11:11→22:13)
[2021-07-21] MEDS: ZINC SULFATE 220 MG CAPSULE. PO SCH (11:11)
[2021-07-21] MEDS: oxyCODONE/APAP 5/325 1 TAB TABLET PO PRN (11:17)
--- NOTE | 2021-07-21 11:38 | PDOC ---
FERMIN BARNES RELIGIOUS LEADER 07/21/21 1138: CARDIO Progress Notes Date and Time Date of Service 07/21/2021 Time of Evaluation 1110 Subjective Subjective: No Chest Pain, No shortness of breath, No Palpitations, No Dizziness Vitals Vitals Vital Signs Date Time Temp Pulse Resp B/P (MAP) Pulse Ox O2 Delivery O2 Flow Rate FiO2 07/21/21 11:17 100 Room Air 07/21/21 11:11 77 166/78 07/21/21 07:00 97.7 18 97.7 07/20/21 21:53 6.0 Weight Weight [ ] Input and Output Intake and Output Intake and Output 07/21/21 07:00 Intake Total 1385 ml Output Total 2800 ml Balance -1415 ml Intake Oral 120 ml IV Total 950 ml Blood Product 300 ml Blood Product IV Normal Saline Flush 15 ml Output Urine Total 2750 ml Drainage Total 50 ml Estimated Blood Loss 0 ml # Bowel Movements 1 Laboratory Labs Laboratory Tests Test 07/20/21 12:24 07/20/21 15:00 07/20/21 16:55 07/20/21 21:56 Glucose (Fingerstick) 92 mg/dL (70-99) 90 mg/dL (70-99) 80 mg/dL (70-99) White Blood Count 14.0 x10^3/uL (4.0-11.0) Red Blood Count 2.41 x10^6/uL (4.30-5.70) Hemoglobin 7.2 g/dL (13.0-17.5) Hematocrit 22.0 % (39.0-53.0) Mean Corpuscular Volume 91 fL (79-100) Mean Corpuscular Hemoglobin 30 pg (25-35) Mean Corpuscular Hemoglobin Concent 33 g/dL (31-37) Red Cell Distribution Width 13.9 % (11.5-14.5) Platelet Count 234 x10^3/uL (140-400) Test 07/21/21 03:43 07/21/21 04:15 07/21/21 07:35 07/21/21 11:18 Glucose (Fingerstick) 84 mg/dL (70-99) 76 mg/dL (70-99) 87 mg/dL (70-99) White Blood Count 11.3 x10^3/uL (4.0-11.0) Red Blood Count 2.63 x10^6/uL (4.30-5.70) Hemoglobin 8.1 g/dL (13.0-17.5) Hematocrit 24.4 % (39.0-53.0) Mean Corpuscular Volume 93 fL (79-100) Mean Corpuscular Hemoglobin 31 pg (25-35) Mean Corpuscular Hemoglobin Concent 33 g/dL (31-37) Red Cell Distribution Width 15.0 % (11.5-14.5) Platelet Count 212 x10^3/uL (140-400) Heparin Anti-Xa Act, Unfractionated < 0.10 IU/mL (0.30-0.70) Physical Exam HEENT: Neck Supple W Full Motion Chest: Symmetric LUNGS: Clear to Auscultation Heart: RRR (SR) Abdomen: Soft N/T Extremities: Other (2+ RLE and 1+ LLE edema. dry gangrene to the tips of all of toes and dry gangrene to the medial aspect of bi heels. Bilateral rook boots intact ) Neurology: alert, oriented, follow commands Assessment Assessment 1. Acute respiratory failure due to acute COVID infection. improved 2. Encephalopathy; CT head without acute findings. improved 3. PAD, subacute thrombotic occlusion of the bilateral popliteal and proximal tibial vessels. s/p bilateral pop/tibial thrombectomy with patch angioplasty 4. Gangrenous changes of bilateral toes and heels; will require bilateral amputations in near future 5. Hypertension; controlled 6. Anemia; hgb drift to 5.7. now post transfusion. Noted with RLE hematoma. Heparin held. S/P evacuation Recommendations Statin, BB therapy Resume asa per vascular Transfuse as warranted Ongoing support Justicifation of Admission Dx: Justifications for Admission: Justification of Admission Dx: Yes MALAIKA HOLLIS MD 07/21/21 1745: CARDIO Progress Notes Plan Plan The patient was seen and interviewed as well as examined at the bedside. The chart was reviewed. The case was discussed. Agree with the plan of care. FERMIN BARNES APRN Jul 21, 2021 11:38 MALAIKA HOLLIS MD Jul 21, 2021 17:45
--- NOTE | 2021-07-21 12:51 | PDOC ---
[employer] PROGRESS NOTE Date of Service DOS: DATE: 07/21/21 TIME: 12:50 Chief Complaint Chief Complaint A/P: Confusion and lethargy, AMS Acute COVID-19 infection Acute infectious and metabolic encephalopathy IVORY due to vasomotor nephropathy improved Lactic acidemia Dysphagia Malnutrition Heel erythema on admit, poor nail care and dystrophic nails PAD - confirmed on arterial dopplers, may have COVID toes History of Present Illness History of Present Illness Mr Lambert is a 60-year-old male that presented 06/29/2021 via [facility] with decreased level of consciousness. Most of the history was obtained via EMS and patient's friend Reese [phone], who states that patient has been sick since about June 22 per Reese, he states that they both had cough cold head ache sinus type pain. Per Reese's report patient is okay during the day and very alert and orientated and at night he has a decreased alertness. Patient is unable to help with exam when asked questions he does deny any past medical history, surgeries, or any other health conditions. Reese who is his roommate collaborates any information gotten from the patient. Accu-Chek per EMS was 250, room air sat in the room was 88 to 90%. 07/07: not much improved, about the same. cont current. PULM following. we have no clinimix, cont D5 fluid, 07/08: more alert, can try ST again, if able to sit up, still very weak 07/09: much more alert, bedside swallow of water ok, sits upright, much stronger, will try clears if able, ST to follow. toes are worsening, now black, hannah consult podiatry to follow, 07/10: More alert. Working with speech and swallowing today. Off O2. Less confused. Bilateral toe ulcers assessed by podiatry today. 07/11: More alert, eating. Arterial Doppler was left popliteal and severe distal disease bilaterally. Still has a little bit of a cough. Less confused today. 07/12: Eating reasonably well. Tentative plans for angiogram for consideration of limb salvage bilateral feet tomorrow. Discussed with cardiology. He will need significant follow-up care likely eventual amputations. 07/13: N.p.o. for angiogram today with bilateral SFA occlusive disease and left popliteal disease with left posterior tibial artery with some flow otherwise occlusive disease per cardiology. Discussed vascular surgery consultation for consideration of definitive revascularization with likely bilateral transmetatarsal amputations. Still with a little bit of a cough. Shortness of breath 07/14: Seen bedside. Having some pain in his bilateral extremities. Shortness o f breath improved still with little bit of cough. Eating again. Amenable to revascularization and likely surgical debridement next week. Increasing thromboprophylaxis 07/15: Seen bedside. Not hypoxic. Cough is improving. He feels he is mental status is improved but he is definitely still mentating slowly. Complains of foot pain. He is contemplating surgical options but is okay with what ever the surgeons to choose for his likely lower extremity bypass tentatively planned for 07/17/202107/16: Bilateral foot pain still with cough but improving. Still is contemplating surgical options. 07/17 Patient off floor for surgery today. Chart evaluated. We will follow up with him after the procedure. 07/18 Patient did and examined at bedside. He is postop day 1 from bilateral thrombectomies yesterday. Looks like he may need more surgery prior to discharge. Continue heparin drip. Suspect leukocytosis today secondary to surgery. Continue current. 07/19 Patient evaluated examined at bedside. He was working with physical therapy when seen. Continuing heparin drip. Recheck CBC today. Cardiology following vascular following. Will likely need further surgery prior to discharge. 07/20 Seen at bedside. Having RLE pain and had Hgb drop overnight. Will transfuse. Stop heparin drip for now. Seen by vascular, hematoma evacuation ordered. serial Hgb. 07/21 Patient evaluated examined at bedside. Hemoglobin improved up to 8.1 today. Underwent hematoma evacuation yesterday. Planning for further intervention next week. Otherwise continue current. Vitals/I&O Vitals/I&O: Vital Signs Date Time Temp Pulse Resp B/P (MAP) Pulse Ox O2 Delivery O2 Flow Rate FiO2 07/21/21 11:47 100 Room Air 07/21/21 11:11 77 166/78 07/21/21 07:00 97.7 18 97.7 07/20/21 21:53 6.0 I & O 07/20/21 07/20/21 07/21/21 14:59 22:59 06:59 Intake Total 115 ml 1270 ml 0 ml Output Total 1200 ml 1600 ml Balance 115 ml 70 ml -1600 ml Physical Exam Physical Exam: lethargic and weak General: Alert, No acute distress Heart: Regular rate Lungs: Clear Abdomen: Soft, No tenderness Extremities: Other (Dry gangrene of toes on both feet and bilateral heel eschars. No significant peripheral edema at this time.) Skin: Other (toes blackend, very poor nail care, dystrophic nails and fungus) Labs Labs: Laboratory Tests Test 07/20/21 15:00 07/20/21 16:55 07/20/21 21:56 07/21/21 03:43 White Blood Count 14.0 x10^3/uL (4.0-11.0) Red Blood Count 2.41 x10^6/uL (4.30-5.70) Hemoglobin 7.2 g/dL (13.0-17.5) Hematocrit 22.0 % (39.0-53.0) Mean Corpuscular Volume 91 fL (79-100) Mean Corpuscular Hemoglobin 30 pg (25-35) Mean Corpuscular Hemoglobin Concent 33 g/dL (31-37) Red Cell Distribution Width 13.9 % (11.5-14.5) Platelet Count 234 x10^3/uL (140-400) Glucose (Fingerstick) 90 mg/dL (70-99) 80 mg/dL (70-99) 84 mg/dL (70-99) Test 07/21/21 04:15 07/21/21 07:35 07/21/21 11:18 White Blood Count 11.3 x10^3/uL (4.0-11.0) Red Blood Count 2.63 x10^6/uL (4.30-5.70) Hemoglobin 8.1 g/dL (13.0-17.5) Hematocrit 24.4 % (39.0-53.0) Mean Corpuscular Volume 93 fL (79-100) Mean Corpuscular Hemoglobin 31 pg (25-35) Mean Corpuscular Hemoglobin Concent 33 g/dL (31-37) Red Cell Distribution Width 15.0 % (11.5-14.5) Platelet Count 212 x10^3/uL (140-400) Heparin Anti-Xa Act, Unfractionated < 0.10 IU/mL (0.30-0.70) Glucose (Fingerstick) 76 mg/dL (70-99) 87 mg/dL (70-99) Assessment and Plan Assessmemt and Plan Problems Medical Problems: (1) Dehydration Status: Acute (2) Mental status alteration Status: Acute (3) Pneumonia Status: Acute Comment Review of Relevant I have reviewed the following items amanda (where applicable) has been applied. Medications: Current Medications Medications (Trade) Dose Ordered Sig/Vicente Route PRN Reason Start Time Stop Time Status Last Admin Dose Admin Cefazolin Sodium/ Dextrose 50 ml @ 100 mls/hr 1X PREOP PRN IV PRIOR TO PROCEDURE 07/20/21 14:00 07/21/21 13:59 07/20/21 15:45 Cellulose (Surgicel Fibrillar 1x2) 1 each STK-MED ONCE .ROUTE 07/20/21 16:04 07/20/21 16:05 DC 07/20/21 16:07 Cefazolin Sodium/ Dextrose 50 ml @ 100 mls/hr Q8HRS IV 07/20/21 22:00 07/21/21 06:29 DC 07/21/21 05:21 Justifications for Admission Other Justification COVID-19 positive test (U07.1, COVID-19) with Acute Pneumonia (J12.89, Other viral pneumonia) (If respiratory failure or sepsis present, add as separate assessment) SIMONE COOPER MD Jul 21, 2021 12:51
--- NOTE | 2021-07-21 13:12 | NUR ---
SS following up with discharge planning. SS reviewed pt chart and discussed with pt RN. Pt is currently on room air. COVID19 recovered. Pt is non weight bearing to both feet. Pt to have surgeries for amputations on both feet next week. Self pay. [facility] following. Nadia from [employer] initiating process for disability application. Not ready. SS will continue to follow for discharge planning.
--- NOTE | 2021-07-21 13:41 | PDOC ---
Provider Note Date of Service: DATE: 07/21/21 TIME: 13:37 Provider Note Provider Note Vascular surgery S: Patient seen in room today, reports feeling improvement in right leg pain. Worn out from PT. He remains with IVF at 100ml/hr and owens catheter in. O: Vital signs stable, afebrile Respirations nonlabored, room air Right leg incision is clean, dry and intact. Drain with serosangineous output, minimal. 25cc out today, 50cc over night. Left leg incision is clean, dry and intact . No erythema. Calf soft. He has moderate edema to BLE. His feet are warm bilaterally, toes seem to be slowly improving/demarcating. Heel wounds the same. He is able to dorsiflex and plantar flex both feet, R is slightly weaker (not new). Wiggles toes. Can lift legs for brief periods. A/P: 1. 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 2. History of COVID pneumonia. 3. 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 POD#4 of bilateral pop/tibial thrombectomies with patch angioplasty POD#1 of RLE hematoma evacuation - Continue to hold heparin gtt, likely restart tomorrow. - Would favor lessing/discontinuing IVF with his persistent LE edema and recommend removal of owens catheter. Discussed with RN. - Continue plan for allowing more time for further demarcation of his toes. Will anticipate surgery for feet sometime next week. - Continue PT, although nonweight bearing on both feet for now, needs to work on strength with exercises in bed as he has atrophied and is very weak from past 3 weeks. Justicifation of Admission Dx: Justifications for Admission: Justification of Admission Dx: Yes FRANCIS ALLAN Jul 21, 2021 13:41
[2021-07-21 15:00] VITALS: BP 131/60
[2021-07-21 20:16] VITALS: BP 126/58
[2021-07-21] MEDS: ATORVASTATIN CALCIUM 20 MG TABLET PO SCH (22:13)
[2021-07-21 23:30] VITALS: BP 109/62
[2021-07-22 03:59] VITALS: BP 120/66
[2021-07-22 04:39] LABS: HEMATOCRIT 24.4 % (39.0-53.0); HEMOGLOBIN 8.1 g/dL (13.0-17.5); RED BLOOD COUNT 2.59 x10^6/uL (4.30-5.70); RED CELL DISTRIBUTION WIDTH 14.9 % (11.5-14.5)
[2021-07-22 07:00] VITALS: BP 120/65
[2021-07-22] MEDS: INSULIN LISPRO 300 UNITS/3 ML VIAL. SQ SCH ×3 (08:00→16:43)
[2021-07-22] MEDS: PANTOPRAZOLE IV PUSH 40 MG VIAL. IVP SCH (09:06)
[2021-07-22] MEDS: ZINC SULFATE 220 MG CAPSULE. PO SCH (09:07)
[2021-07-22] MEDS: THIAMINE 100 MG TABLET. PO SCH (09:07)
[2021-07-22] MEDS: METOPROLOL TART IMMED RELEASE 25 MG TABLET. PO SCH ×2 (09:07→19:55)
[2021-07-22] MEDS: ASCORBIC ACID 1,000 MG TABLET PO SCH ×3 (09:07→19:54)
[2021-07-22 11:00] VITALS: BP 123/62
--- NOTE | 2021-07-22 11:25 | PDOC ---
CARDIOLOGY PROGRESS NOTE SUBJECTIVE: No overnight events. Hgb remains stable. OBJECTIVE: Vital Signs/I&O: Vital Signs Date Time Temp Pulse Resp B/P (MAP) Pulse Ox O2 Delivery O2 Flow Rate FiO2 07/22/21 11:00 97.6 73 18 123/62 (82) 98 Room Air 97.6 I & O 07/21/21 07/21/21 07/22/21 15:00 23:00 07:00 Intake Total 720 ml 120 ml 0 ml Output Total 1750 ml 100 ml 330 ml Balance -1030 ml 20 ml -330 ml Objective: GEN.: No apparent distress. Alert and oriented. HEENT: Head is normocephalic, atraumatic NECK: Supple. LUNGS: Clear to auscultation. HEART: RRR, S1, S2 present. Peripheral pulses intact ABDOMEN: Soft, nontender. Positive bowel sounds. EXTREMITIES: Gangrenous toes. Right heel improved. Non-palp pulses. Right ismael f drain in place. NEUROLOGIC: Normal speech, normal tone PSYCHIATRIC: Normal affect, normal mood. SKIN: Multiple toe ulcerations. CURRENT MEDICATIONS: Metoprolol 25mg p.o bid Atorvastatin 20mg daily DIAGNOSTIC TESTING: WBC 10.1 Hgb 8.2 No recent creatinine ASSESSMENT: 1. Covid 19 PNA with distal bilateral LE thrombosis. 2. PAD s/p bilateral SFA thrombectomy. 3. HTN 4. DLP PLAN: 1. Restart ASA 81mg daily per vascular surgery. 2. Consider restarting heparin when cleared by vascular surgery. 3. After amputation then start eliquis. 4. Outpt evaluation for CAD. Supportive care. We will follow along closely. Justicifation of Admission Dx: Justifications for Admission: Justification of Admission Dx: Yes MALAIKA HOLLIS MD Jul 22, 2021 11:25
[2021-07-22] MEDS: oxyCODONE/APAP 5/325 1 TAB TABLET PO PRN (12:03)
--- NOTE | 2021-07-22 14:23 | NUR ---
ATTN: SOCIAL SERVICE COPY OF SOLAR PANEL TECHNICIAN'S LICENCE AND SOCIAL SECURITY CARD ARE IN THE FRONT OF THE CHART. FRIEND, SEFERINO SOMMER, IS GOING TO HAVE RECENT BANK STATEMENTS FAXED HERE AT THE BEGINNING OF THE WEEK. THEY WERE TOLD THEY ARE NEEDED FOR MEDICAID APPLICATION.
[2021-07-22 14:54] VITALS: BP 130/69
--- NOTE | 2021-07-22 16:00 | PDOC ---
SURGICAL PROGRESS NOTE DATE: 07/22/21 TIME: 15:58 Subjective Patient was seen and examined. He had no acute events overnight. Vital Signs Vital Signs Date Time Temp Pulse Resp B/P (MAP) Pulse Ox O2 Delivery O2 Flow Rate FiO2 07/22/21 14:54 98.7 81 20 130/69 (89) 93 Room Air 98.7 I&O Intake and Output 07/22/21 07:00 Intake Total 840 ml Output Total 2180 ml Balance -1340 ml Intake Oral 840 ml Output Urine Total 2150 ml Drainage Total 30 ml General: Alert, Oriented X3, Cooperative Lungs: Clear to auscultation, Normal air movement Heart: Regular rate, Normal S1, Normal S2 Abdomen: Normal bowel sounds, Soft, No tenderness Extremities: No clubbing, No cyanosis, Other (Doppler signals intact bilaterally) Skin: Other (No further hematoma accumulation) Labs Laboratory Tests Test 07/20/21 16:55 07/20/21 21:56 07/21/21 03:43 07/21/21 04:15 Glucose (Fingerstick) 90 mg/dL (70-99) 80 mg/dL (70-99) 84 mg/dL (70-99) White Blood Count 11.3 x10^3/uL (4.0-11.0) Red Blood Count 2.63 x10^6/uL (4.30-5.70) Hemoglobin 8.1 g/dL (13.0-17.5) Hematocrit 24.4 % (39.0-53.0) Mean Corpuscular Volume 93 fL (79-100) Mean Corpuscular Hemoglobin 31 pg (25-35) Mean Corpuscular Hemoglobin Concent 33 g/dL (31-37) Red Cell Distribution Width 15.0 % (11.5-14.5) Platelet Count 212 x10^3/uL (140-400) Heparin Anti-Xa Act, Unfractionated < 0.10 IU/mL (0.30-0.70) Test 07/21/21 07:35 07/21/21 11:18 07/21/21 16:19 07/21/21 21:11 Glucose (Fingerstick) 76 mg/dL (70-99) 87 mg/dL (70-99) 146 mg/dL (70-99) 97 mg/dL (70-99) Test 07/22/21 04:00 07/22/21 08:07 07/22/21 11:48 White Blood Count 10.0 x10^3/uL (4.0-11.0) Red Blood Count 2.59 x10^6/uL (4.30-5.70) Hemoglobin 8.1 g/dL (13.0-17.5) Hematocrit 24.4 % (39.0-53.0) Mean Corpuscular Volume 94 fL (79-100) Mean Corpuscular Hemoglobin 31 pg (25-35) Mean Corpuscular Hemoglobin Concent 33 g/dL (31-37) Red Cell Distribution Width 14.9 % (11.5-14.5) Platelet Count 229 x10^3/uL (140-400) Glucose (Fingerstick) 93 mg/dL (70-99) 110 mg/dL (70-99) Laboratory Tests Test 07/21/21 16:19 07/21/21 21:11 07/22/21 04:00 07/22/21 08:07 Glucose (Fingerstick) 146 mg/dL (70-99) 97 mg/dL (70-99) 93 mg/dL (70-99) White Blood Count 10.0 x10^3/uL (4.0-11.0) Red Blood Count 2.59 x10^6/uL (4.30-5.70) Hemoglobin 8.1 g/dL (13.0-17.5) Hematocrit 24.4 % (39.0-53.0) Mean Corpuscular Volume 94 fL (79-100) Mean Corpuscular Hemoglobin 31 pg (25-35) Mean Corpuscular Hemoglobin Concent 33 g/dL (31-37) Red Cell Distribution Width 14.9 % (11.5-14.5) Platelet Count 229 x10^3/uL (140-400) Test 07/22/21 11:48 Glucose (Fingerstick) 110 mg/dL (70-99) Problem List Problems Medical Problems: (1) Dehydration Status: Acute (2) Mental status alteration Status: Acute (3) Pneumonia Status: Acute Assessment/Plan Bilateral lower extremity thrombectomy--patient surgical drain was removed today. Patient can resume his aspirin and anticoagulants per the primary medical team. Would continue dry dressing changes to his wounds daily. Continue with physical and Occupational Therapy. Justicifation of Admission Dx: Justifications for Admission: Justification of Admission Dx: Yes NOE LUNA DO Jul 22, 2021 16:00
--- NOTE | 2021-07-22 16:01 | NUR ---
NURSING VASCULAR SURGERY SEES PATIENT, VERONICA DRAIN PULLED. CLEAN DRESSINGS APPLIED OVER STAPLED AREAS OF BOTH MEDIAL CALVES. 4X4 AND MEDIPORE TAPE.
[2021-07-22] MEDS ORDERED: HEPARIN for IV BOLUS 10,000 UNIT/10 ML VIAL. IV PRN (16:30)
[2021-07-22] MEDS: HEPARIN 25,000UTS/250ML PREMIX 250 ML IV PRN (17:37)
[2021-07-22] MEDS: ATORVASTATIN CALCIUM 20 MG TABLET PO SCH (19:54)
[2021-07-22 20:12] VITALS: BP 139/60
--- NOTE | 2021-07-22 20:30 | PDOC ---
[facility] [facility] PROGRESS NOTE Date of Service DOS: DATE: 07/22/21 TIME: 20:29 Chief Complaint Chief Complaint A/P: Confusion and lethargy, AMS Acute COVID-19 infection Acute infectious and metabolic encephalopathy IVORY due to vasomotor nephropathy improved Lactic acidemia Dysphagia Malnutrition Heel erythema on admit, poor nail care and dystrophic nails PAD - confirmed on arterial dopplers, may have COVID toes History of Present Illness History of Present Illness Mr Lambert is a 60-year-old male that presented 06/29/2021 via [facility] with decreased level of consciousness. Most of the history was obtained via EMS and patient's friend Reese [phone], who states that patient has been sick since about June 22 per Reese, he states that they both had cough cold head ache sinus type pain. Per Reese's report patient is okay during the day and very alert and orientated and at night he has a decreased alertness. Patient is unable to help with exam when asked questions he does deny any past medical history, surgeries, or any other health conditions. Reese who is his roommate collaborates any information gotten from the patient. Accu-Chek per EMS was 250, room air sat in the room was 88 to 90%. 07/07: not much improved, about the same. cont current. PULM following. we have no clinimix, cont D5 fluid, 07/08: more alert, can try ST again, if able to sit up, still very weak 07/09: much more alert, bedside swallow of water ok, sits upright, much stronger, will try clears if able, ST to follow. toes are worsening, now black, hannah consult podiatry to follow, 07/10: More alert. Working with speech and swallowing today. Off O2. Less confused. Bilateral toe ulcers assessed by podiatry today. 07/11: More alert, eating. Arterial Doppler was left popliteal and severe distal disease bilaterally. Still has a little bit of a cough. Less confused today. 07/12: Eating reasonably well. Tentative plans for angiogram for consideration of limb salvage bilateral feet tomorrow. Discussed with cardiology. He will need significant follow-up care likely eventual amputations. 07/13: N.p.o. for angiogram today with bilateral SFA occlusive disease and left popliteal disease with left posterior tibial artery with some flow otherwise occlusive disease per cardiology. Discussed vascular surgery consultation for consideration of definitive revascularization with likely bilateral transmetatarsal amputations. Still with a little bit of a cough. Shortness of breath 07/14: Seen bedside. Having some pain in his bilateral extremities. Shortness o f breath improved still with little bit of cough. Eating again. Amenable to revascularization and likely surgical debridement next week. Increasing thromboprophylaxis 07/15: Seen bedside. Not hypoxic. Cough is improving. He feels he is mental status is improved but he is definitely still mentating slowly. Complains of foot pain. He is contemplating surgical options but is okay with what ever the surgeons to choose for his likely lower extremity bypass tentatively planned for 07/17/202107/16: Bilateral foot pain still with cough but improving. Still is contemplating surgical options. 07/17 Patient off floor for surgery today. Chart evaluated. We will follow up with him after the procedure. 07/18 Patient did and examined at bedside. He is postop day 1 from bilateral thrombectomies yesterday. Looks like he may need more surgery prior to discharge. Continue heparin drip. Suspect leukocytosis today secondary to surgery. Continue current. 07/19 Patient evaluated examined at bedside. He was working with physical therapy when seen. Continuing heparin drip. Recheck CBC today. Cardiology following vascular following. Will likely need further surgery prior to discharge. 07/20 Seen at bedside. Having RLE pain and had Hgb drop overnight. Will transfuse. Stop heparin drip for now. Seen by vascular, hematoma evacuation ordered. serial Hgb. 07/21 Patient evaluated examined at bedside. Hemoglobin improved up to 8.1 today. Underwent hematoma evacuation yesterday. Planning for further intervention next week. Otherwise continue current. 07/22 Examine and evaluated at bedside. Resting in bed no major complaints. Hemoglobin stable. Appreciate Cardiology resuming heparin. Further intervention next week. Vitals/I&O Vitals/I&O: Vital Signs Date Time Temp Pulse Resp B/P (MAP) Pulse Ox O2 Delivery O2 Flow Rate FiO2 07/22/21 20:12 97.3 86 18 139/60 (86) 94 Room Air 97.3 I & O 07/21/21 07/21/21 07/22/21 15:00 23:00 07:00 Intake Total 720 ml 120 ml 0 ml Output Total 1750 ml 100 ml 330 ml Balance -1030 ml 20 ml -330 ml Physical Exam Physical Exam: lethargic and weak General: Alert, Oriented X3, Cooperative Heart: Regular rate, Normal S1, Normal S2 Lungs: Clear Abdomen: Normal bowel sounds, Soft, No tenderness Extremities: No clubbing, No cyanosis, Other (Doppler signals intact bilaterally) Skin: Other (No further hematoma accumulation) Labs Labs: Laboratory Tests Test 07/21/21 21:11 07/22/21 04:00 07/22/21 08:07 07/22/21 11:48 Glucose (Fingerstick) 97 mg/dL (70-99) 93 mg/dL (70-99) 110 mg/dL (70-99) White Blood Count 10.0 x10^3/uL (4.0-11.0) Red Blood Count 2.59 x10^6/uL (4.30-5.70) Hemoglobin 8.1 g/dL (13.0-17.5) Hematocrit 24.4 % (39.0-53.0) Mean Corpuscular Volume 94 fL (79-100) Mean Corpuscular Hemoglobin 31 pg (25-35) Mean Corpuscular Hemoglobin Concent 33 g/dL (31-37) Red Cell Distribution Width 14.9 % (11.5-14.5) Platelet Count 229 x10^3/uL (140-400) Test 07/22/21 16:27 Glucose (Fingerstick) 111 mg/dL (70-99) Assessment and Plan Assessmemt and Plan Problems Medical Problems: (1) Dehydration Status: Acute (2) Mental status alteration Status: Acute (3) Pneumonia Status: Acute Comment Review of Relevant I have reviewed the following items amanda (where applicable) has been applied. Medications: Current Medications Medications (Trade) Dose Ordered Sig/Vicente Route PRN Reason Start Time Stop Time Status Last Admin Dose Admin Heparin Sodium/ Dextrose 250 ml @ 8.789 mls/ hr CONT PRN IV PER PROTOCOL 07/22/21 16:30 07/22/21 17:37 Justifications for Admission Other Justification COVID-19 positive test (U07.1, COVID-19) with Acute Pneumonia (J12.89, Other viral pneumonia) (If respiratory failure or sepsis present, add as separate assessment) SIMONE COOPER MD Jul 22, 2021 20:30
[2021-07-22 23:35] VITALS: BP 142/66
[2021-07-23 02:38] VITALS: BP 154/72
[2021-07-23 04:35] LABS: HEMATOCRIT 25.2 % (39.0-53.0); HEMOGLOBIN 8.2 g/dL (13.0-17.5); RED BLOOD COUNT 2.69 x10^6/uL (4.30-5.70); RED CELL DISTRIBUTION WIDTH 14.6 % (11.5-14.5); WHITE BLOOD COUNT 11.7 x10^3/uL (4.0-11.0)
[2021-07-23 07:00] VITALS: BP 138/76
[2021-07-23] MEDS: ASPIRIN CHEWABLE 81 MG TABLET. PO SCH (08:00)
[2021-07-23] MEDS: INSULIN LISPRO 300 UNITS/3 ML VIAL. SQ SCH ×3 (08:00→17:00)
[2021-07-23 10:26] VITALS: BP 141/76
[2021-07-23] MEDS: ASCORBIC ACID 1,000 MG TABLET PO SCH ×3 (10:59→19:52)
[2021-07-23] MEDS: PANTOPRAZOLE IV PUSH 40 MG VIAL. IVP SCH (10:59)
[2021-07-23] MEDS: ZINC SULFATE 220 MG CAPSULE. PO SCH (10:59)
[2021-07-23] MEDS: METOPROLOL TART IMMED RELEASE 25 MG TABLET. PO SCH ×2 (10:59→19:52)
[2021-07-23] MEDS: THIAMINE 100 MG TABLET. PO SCH (10:59)
--- NOTE | 2021-07-23 12:39 | PDOC ---
[facility] [facility] PROGRESS NOTE Date of Service DOS: DATE: 07/23/21 TIME: 12:38 Chief Complaint Chief Complaint A/P: Confusion and lethargy, AMS Acute COVID-19 infection Acute infectious and metabolic encephalopathy IVORY due to vasomotor nephropathy improved Lactic acidemia Dysphagia Malnutrition Heel erythema on admit, poor nail care and dystrophic nails PAD - confirmed on arterial dopplers, may have COVID toes History of Present Illness History of Present Illness Mr Lambert is a 60-year-old male that presented 06/29/2021 via [facility] with decreased level of consciousness. Most of the history was obtained via EMS and patient's friend Reese [phone], who states that patient has been sick since about June 22 per Reese, he states that they both had cough cold head ache sinus type pain. Per Reese's report patient is okay during the day and very alert and orientated and at night he has a decreased alertness. Patient is unable to help with exam when asked questions he does deny any past medical history, surgeries, or any other health conditions. Reese who is his roommate collaborates any information gotten from the patient. Accu-Chek per EMS was 250, room air sat in the room was 88 to 90%. 07/07: not much improved, about the same. cont current. PULM following. we have no clinimix, cont D5 fluid, 07/08: more alert, can try ST again, if able to sit up, still very weak 07/09: much more alert, bedside swallow of water ok, sits upright, much stronger, will try clears if able, ST to follow. toes are worsening, now black, hannah consult podiatry to follow, 07/10: More alert. Working with speech and swallowing today. Off O2. Less confused. Bilateral toe ulcers assessed by podiatry today. 07/11: More alert, eating. Arterial Doppler was left popliteal and severe distal disease bilaterally. Still has a little bit of a cough. Less confused today. 07/12: Eating reasonably well. Tentative plans for angiogram for consideration of limb salvage bilateral feet tomorrow. Discussed with cardiology. He will need significant follow-up care likely eventual amputations. 07/13: N.p.o. for angiogram today with bilateral SFA occlusive disease and left popliteal disease with left posterior tibial artery with some flow otherwise occlusive disease per cardiology. Discussed vascular surgery consultation for consideration of definitive revascularization with likely bilateral transmetatarsal amputations. Still with a little bit of a cough. Shortness of breath 07/14: Seen bedside. Having some pain in his bilateral extremities. Shortness o f breath improved still with little bit of cough. Eating again. Amenable to revascularization and likely surgical debridement next week. Increasing thromboprophylaxis 07/15: Seen bedside. Not hypoxic. Cough is improving. He feels he is mental status is improved but he is definitely still mentating slowly. Complains of foot pain. He is contemplating surgical options but is okay with what ever the surgeons to choose for his likely lower extremity bypass tentatively planned for 07/17/202107/16: Bilateral foot pain still with cough but improving. Still is contemplating surgical options. 07/17 Patient off floor for surgery today. Chart evaluated. We will follow up with him after the procedure. 07/18 Patient did and examined at bedside. He is postop day 1 from bilateral thrombectomies yesterday. Looks like he may need more surgery prior to discharge. Continue heparin drip. Suspect leukocytosis today secondary to surgery. Continue current. 07/19 Patient evaluated examined at bedside. He was working with physical therapy when seen. Continuing heparin drip. Recheck CBC today. Cardiology following vascular following. Will likely need further surgery prior to discharge. 07/20 Seen at bedside. Having RLE pain and had Hgb drop overnight. Will transfuse. Stop heparin drip for now. Seen by vascular, hematoma evacuation ordered. serial Hgb. 07/21 Patient evaluated examined at bedside. Hemoglobin improved up to 8.1 today. Underwent hematoma evacuation yesterday. Planning for further intervention next week. Otherwise continue current. 07/22 Examine and evaluated at bedside. Resting in bed no major complaints. Hemoglobin stable. Appreciate Cardiology resuming heparin. Further intervention next week. 07/23 Seen at bedside no motor complaints. Hemoglobin still stable. No major clinical changes for today. Intervention this coming week. Vitals/I&O Vitals/I&O: Vital Signs Date Time Temp Pulse Resp B/P (MAP) Pulse Ox O2 Delivery O2 Flow Rate FiO2 07/23/21 10:59 87 141/76 07/23/21 10:26 99.3 18 95 Room Air 99.3 I & O 1/29/22 1/29/22 1/30/22 15:00 23:00 07:00 Intake Total 570 ml 580 ml Output Total 30 ml 750 ml 1100 ml Balance 540 ml -170 ml -1100 ml Physical Exam Physical Exam: lethargic and weak General: Alert, Oriented X3, Cooperative Heart: Regular rate, Normal S1, Normal S2 Lungs: Clear Abdomen: Normal bowel sounds, Soft, No tenderness Extremities: No clubbing, No cyanosis, Other (Doppler signals intact bilaterally) Skin: Other (No further hematoma accumulation) Labs Labs: Laboratory Tests Test 07/22/21 16:27 07/22/21 21:40 07/23/21 00:25 07/23/21 01:30 Glucose (Fingerstick) 111 mg/dL (70-99) 98 mg/dL (70-99) Heparin Anti-Xa Act, Unfractionated 0.16 IU/mL (0.30-0.70) White Blood Count 11.7 x10^3/uL (4.0-11.0) Red Blood Count 2.69 x10^6/uL (4.30-5.70) Hemoglobin 8.2 g/dL (13.0-17.5) Hematocrit 25.2 % (39.0-53.0) Mean Corpuscular Volume 94 fL (79-100) Mean Corpuscular Hemoglobin 31 pg (25-35) Mean Corpuscular Hemoglobin Concent 33 g/dL (31-37) Red Cell Distribution Width 14.6 % (11.5-14.5) Platelet Count 294 x10^3/uL (140-400) Test 07/23/21 07:00 07/23/21 08:05 07/23/21 11:28 Heparin Anti-Xa Act, Unfractionated 0.44 IU/mL (0.30-0.70) Glucose (Fingerstick) 102 mg/dL (70-99) 104 mg/dL (70-99) Assessment and Plan Assessmemt and Plan Problems Medical Problems: (1) Dehydration Status: Acute (2) Mental status alteration Status: Acute (3) Pneumonia Status: Acute Comment Review of Relevant I have reviewed the following items amanda (where applicable) has been applied. Medications: Current Medications Medications (Trade) Dose Ordered Sig/Vicente Route PRN Reason Start Time Stop Time Status Last Admin Dose Admin Aspirin (Aspirin Chewable) 81 mg DAILYWBKFT PO 07/23/21 08:00 07/23/21 08:00 Heparin Sodium/ Dextrose 250 ml @ 8.789 mls/ hr CONT PRN IV PER PROTOCOL 07/22/21 16:30 07/22/21 17:37 Heparin Sodium (Porcine) (Heparin Sodium) 2,000 unit PRN Q6HRS PRN IV FOR UFH LEVEL LESS THAN 0.2 07/22/21 16:30 07/23/21 01:17 Justifications for Admission Other Justification COVID-19 positive test (U07.1, COVID-19) with Acute Pneumonia (J12.89, Other viral pneumonia) (If respiratory failure or sepsis present, add as separate assessment) SIMONE COOPER MD Jul 23, 2021 12:39
--- NOTE | 2021-07-23 12:40 | PDOC ---
CARDIOLOGY PROGRESS NOTE SUBJECTIVE: No new events overnight. Patient is actually sitting up in the bed today working with physical therapy Discussed case with vascular surgery service. OBJECTIVE: Vital Signs/I&O: Vital Signs Date Time Temp Pulse Resp B/P (MAP) Pulse Ox O2 Delivery O2 Flow Rate FiO2 07/23/21 10:59 87 141/76 07/23/21 10:26 99.3 18 95 Room Air 99.3 I & O 07/22/21 07/22/21 07/23/21 14:59 22:59 06:59 Intake Total 570 ml 580 ml Output Total 30 ml 750 ml 1100 ml Balance 540 ml -170 ml -1100 ml Objective: Examination remains grossly unchanged CURRENT MEDICATIONS: Current Medications Medications (Trade) Dose Ordered Sig/Vicente Route PRN Reason Start Time Stop Time Status Last Admin Dose Admin Aspirin (Aspirin Chewable) 81 mg DAILYWBKFT PO 07/23/21 08:00 07/23/21 08:00 Heparin Sodium/ Dextrose 250 ml @ 8.789 mls/ hr CONT PRN IV PER PROTOCOL 07/22/21 16:30 07/22/21 17:37 Heparin Sodium (Porcine) (Heparin Sodium) 2,000 unit PRN Q6HRS PRN IV FOR UFH LEVEL LESS THAN 0.2 07/22/21 16:30 07/23/21 01:17 DIAGNOSTIC TESTING: Laboratory studies reviewed Labs: Laboratory Tests 07/23/21 01:30 Laboratory Tests Test 07/22/21 16:27 07/22/21 21:40 07/23/21 00:25 07/23/21 01:30 Glucose (Fingerstick) 111 mg/dL (70-99) H 98 mg/dL (70-99) Heparin Anti-Xa Act, Unfractionated 0.16 IU/mL (0.30-0.70) L White Blood Count 11.7 x10^3/uL (4.0-11.0) H Red Blood Count 2.69 x10^6/uL (4.30-5.70) L Hemoglobin 8.2 g/dL (13.0-17.5) L Hematocrit 25.2 % (39.0-53.0) L Mean Corpuscular Volume 94 fL (79-100) Mean Corpuscular Hemoglobin 31 pg (25-35) Mean Corpuscular Hemoglobin Concent 33 g/dL (31-37) Red Cell Distribution Width 14.6 % (11.5-14.5) H Platelet Count 294 x10^3/uL (140-400) Test 07/23/21 07:00 07/23/21 08:05 07/23/21 11:28 Heparin Anti-Xa Act, Unfractionated 0.44 IU/mL (0.30-0.70) Glucose (Fingerstick) 102 mg/dL (70-99) H 104 mg/dL (70-99) H ASSESSMENT: ASSESSMENT: 1. Covid 19 PNA with distal bilateral LE thrombosis. 2. PAD s/p bilateral SFA thrombectomy. 3. HTN 4. DLP PLAN: 1. Restart ASA 81mg daily per vascular surgery. 2. Continue heparin drip. Plan for Eliquis after completion of his surgical plans. Outpatient evaluation for coronary artery disease with stress testing. Supportive care for now. Justicifation of Admission Dx: Justifications for Admission: Justification of Admission Dx: Yes MALAIKA HOLLIS MD Jul 23, 2021 12:40
[2021-07-23 15:00] VITALS: BP 158/77
[2021-07-23] MEDS: HEPARIN 25,000UTS/250ML PREMIX 250 ML IV PRN (18:26)
[2021-07-23 19:15] VITALS: BP 158/79
[2021-07-23] MEDS: ATORVASTATIN CALCIUM 20 MG TABLET PO SCH (19:52)
[2021-07-23 22:39] VITALS: BP 149/74
[2021-07-24] VITALS (7 sets, daily range): BP systolic 126–155; BP diastolic 74–91
[2021-07-24 05:30] LABS: HEMATOCRIT 26.8 % (39.0-53.0); HEMOGLOBIN 8.5 g/dL (13.0-17.5); RED BLOOD COUNT 2.86 x10^6/uL (4.30-5.70); WHITE BLOOD COUNT 11.9 x10^3/uL (4.0-11.0)
[2021-07-24] MEDS: PANTOPRAZOLE IV PUSH 40 MG VIAL. IVP SCH (07:35)
[2021-07-24] MEDS: ASPIRIN CHEWABLE 81 MG TABLET. PO SCH (07:36)
[2021-07-24] MEDS: THIAMINE 100 MG TABLET. PO SCH (07:36)
[2021-07-24] MEDS: METOPROLOL TART IMMED RELEASE 25 MG TABLET. PO SCH ×2 (07:36→20:10)
[2021-07-24] MEDS: ZINC SULFATE 220 MG CAPSULE. PO SCH (07:36)
[2021-07-24] MEDS: ASCORBIC ACID 1,000 MG TABLET PO SCH ×3 (07:36→20:10)
[2021-07-24] MEDS: INSULIN LISPRO 300 UNITS/3 ML VIAL. SQ SCH ×3 (08:00→17:00)
--- NOTE | 2021-07-24 10:44 | PDOC ---
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 07/24/21 1044: CARDIO Progress Notes Date and Time Date of Service 07/24/21 Time of Evaluation 1045 Subjective Subjective: No Chest Pain, No shortness of breath, No Palpitations, No Dizziness Vitals Vitals Vital Signs Date Time Temp Pulse Resp B/P (MAP) Pulse Ox O2 Delivery O2 Flow Rate FiO2 07/24/21 07:36 84 155/78 07/24/21 07:00 100.8 18 95 Room Air 100.8 Weight Weight [ ] Input and Output Intake and Output Intake and Output 07/24/21 07:00 Intake Total 575 ml Output Total 900 ml Balance -325 ml Intake Oral 575 ml Output Urine Total 900 ml Laboratory Labs Laboratory Tests Test 07/23/21 11:28 07/23/21 14:10 07/23/21 17:00 07/23/21 20:45 Glucose (Fingerstick) 104 mg/dL (70-99) 112 mg/dL (70-99) 126 mg/dL (70-99) Heparin Anti-Xa Act, Unfractionated 0.33 IU/mL (0.30-0.70) Test 07/24/21 04:55 07/24/21 08:12 White Blood Count 11.9 x10^3/uL (4.0-11.0) Red Blood Count 2.86 x10^6/uL (4.30-5.70) Hemoglobin 8.5 g/dL (13.0-17.5) Hematocrit 26.8 % (39.0-53.0) Mean Corpuscular Volume 94 fL (79-100) Mean Corpuscular Hemoglobin 30 pg (25-35) Mean Corpuscular Hemoglobin Concent 32 g/dL (31-37) Red Cell Distribution Width 15.0 % (11.5-14.5) Platelet Count 296 x10^3/uL (140-400) Heparin Anti-Xa Act, Unfractionated 0.32 IU/mL (0.30-0.70) Glucose (Fingerstick) 123 mg/dL (70-99) Physical Exam HEENT: Neck Supple W Full Motion Chest: Symmetric LUNGS: Clear to Auscultation Heart: RRR (SR) Abdomen: Soft N/T Extremities: Other (trace bilateral LE edema. gangrenous changes of bilateral toes. ) Neurology: alert, oriented, follow commands Assessment Assessment 1. Acute respiratory failure due to acute COVID infection. improved 2. Encephalopathy; CT head without acute findings. improved 3. PAD, subacute thrombotic occlusion of the bilateral popliteal and proximal tibial vessels. s/p bilateral pop/tibial thrombectomy with patch angioplasty 4. Gangrenous changes of bilateral toes and heels; will require bilateral amputations in near future 5. Hypertension; controlled 6. Anemia; hgb drift to 5.7. s/p transfusion. hgb stable 7. RLE hematoma; s/p evacuation Recommendations ASA, Statin, BB therapy Continue anticoagulation Ongoing support Plans for amputation tomorrow Will plan for outpatient ischemia evaluation Justicifation of Admission Dx: Justifications for Admission: Justification of Admission Dx: Yes MALAIKA HOLLIS MD 07/24/21 1722: CARDIO Progress Notes Plan Plan The patient was seen and interviewed as well as examined at the bedside. The chart was reviewed. The case was discussed. Agree with the plan of care. DEEPALI BRAR APRN Jul 24, 2021 10:44 MALAIKA HOLLIS MD Jul 24, 2021 17:22
--- NOTE | 2021-07-24 11:34 | PDOC ---
Provider Note Date of Service: DATE: 07/24/21 TIME: 11:31 Provider Note Provider Note Vascular surgery S: Patient seen in room today, reports feeling tired, feels some improvement with working with PT. Owens catheter remains in. O: Vital signs stable, slight temp last night. Respirations nonlabored, room air Right leg incision is clean, dry and intact. Calf and surrounding areas soft. Drain minimal evidence of drainage, no active drainage Left leg incision is clean, dry and intact . No erythema. Calf soft. Minimal pedal edema His feet are warm bilaterally, toes seem to be slowly improving/demarcating. Heel wounds the same. Palpable PT pulse on right, monophasic DP signal bilaterally. Good PT doppler signal left PT. He is able to dorsiflex and plantar flex both feet, R is slightly weaker (not new). Wiggles toes. Can lift legs for brief periods. A/P: 1. 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 2. History of COVID pneumonia. 3. 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 s/p bilateral pop/tibial thrombectomies with patch angioplasty s/p RLE hematoma evacuation - Continue anticoagulation - Keep incisions clean and dry - Remove owens - Surgery for feet planned for tomorrow. Discussed with pt extensively in detail, he exhibited understanding and agreed. - Would favor lessing/discontinuing IVF with his persistent LE edema and recommend removal of owens catheter. Discussed with RN. - Continue PT Justicifation of Admission Dx: Justifications for Admission: Justification of Admission Dx: Yes FRANCIS ALLAN Jul 24, 2021 11:34
--- NOTE | 2021-07-24 12:08 | NUR ---
SS following up with discharge planning. SS reviewed pt chart and discussed with pt RN. Pt is currently on room air. COVID19 recovered. Pt on Heparin drip. Cardiology and Vascular following. Non-weight bearing both feet. Pt is scheduled for surgery with Vascular tomorrow. Self pay. [facility] following. Nadia with [facility] to meet with pt today to follow up with disability application. Pt needing LTC placement. Not ready. SS will continue to follow for discharge planning.
--- NOTE | 2021-07-24 12:25 | PDOC ---
[employer] PROGRESS NOTE Date of Service DOS: DATE: 07/24/21 TIME: 12:23 Chief Complaint Chief Complaint A/P: Confusion and lethargy, AMS Acute COVID-19 infection Acute infectious and metabolic encephalopathy IVORY due to vasomotor nephropathy improved Lactic acidemia Dysphagia Malnutrition Heel erythema on admit, poor nail care and dystrophic nails PAD - confirmed on arterial dopplers, may have COVID toes History of Present Illness History of Present Illness Mr Lambert is a 60-year-old male that presented 06/29/2021 via [facility] with decreased level of consciousness. Most of the history was obtained via EMS and patient's friend Reese [phone], who states that patient has been sick since about June 22 per Reese, he states that they both had cough cold head ache sinus type pain. Per Reese's report patient is okay during the day and very alert and orientated and at night he has a decreased alertness. Patient is unable to help with exam when asked questions he does deny any past medical history, surgeries, or any other health conditions. Reese who is his roommate collaborates any information gotten from the patient. Accu-Chek per EMS was 250, room air sat in the room was 88 to 90%. 07/07: not much improved, about the same. cont current. PULM following. we have no clinimix, cont D5 fluid, 07/08: more alert, can try ST again, if able to sit up, still very weak 07/09: much more alert, bedside swallow of water ok, sits upright, much stronger, will try clears if able, ST to follow. toes are worsening, now black, hannah consult podiatry to follow, 07/10: More alert. Working with speech and swallowing today. Off O2. Less confused. Bilateral toe ulcers assessed by podiatry today. 07/11: More alert, eating. Arterial Doppler was left popliteal and severe distal disease bilaterally. Still has a little bit of a cough. Less confused today. 07/12: Eating reasonably well. Tentative plans for angiogram for consideration of limb salvage bilateral feet tomorrow. Discussed with cardiology. He will need significant follow-up care likely eventual amputations. 07/13: N.p.o. for angiogram today with bilateral SFA occlusive disease and left popliteal disease with left posterior tibial artery with some flow otherwise occlusive disease per cardiology. Discussed vascular surgery consultation for consideration of definitive revascularization with likely bilateral transmetatarsal amputations. Still with a little bit of a cough. Shortness of breath 07/14: Seen bedside. Having some pain in his bilateral extremities. Shortness o f breath improved still with little bit of cough. Eating again. Amenable to revascularization and likely surgical debridement next week. Increasing thromboprophylaxis 07/15: Seen bedside. Not hypoxic. Cough is improving. He feels he is mental status is improved but he is definitely still mentating slowly. Complains of foot pain. He is contemplating surgical options but is okay with what ever the surgeons to choose for his likely lower extremity bypass tentatively planned for 07/17/202107/16: Bilateral foot pain still with cough but improving. Still is contemplating surgical options. 07/17: Patient off floor for surgery today. Chart evaluated. s/p bilateral pop/tibial thrombectomies with patch angioplasty. s/p RLE hematoma evacuation 07/18: Patient did and examined at bedside. He is postop day 1 from bilateral thrombectomies yesterday. Looks like he may need more surgery prior to discharge. Continue heparin drip. Suspect leukocytosis today secondary to surgery. Continue current. 07/19: Patient evaluated examined at bedside. He was working with physical therapy when seen. Continuing heparin drip. Recheck CBC today. Cardiology following vascular following. Will likely need further surgery prior to discharge. 07/20: Seen at bedside. Having RLE pain and had Hgb drop overnight. Will transfuse. Stop heparin drip for now. Seen by vascular, hematoma evacuation ordered. serial Hgb. 07/21: Patient evaluated examined at bedside. Hemoglobin improved up to 8.1 today. Underwent hematoma evacuation yesterday. Planning for further intervention next week. 07/22: Examine and evaluated at bedside. Resting in bed no major complaints. Hemoglobin stable. Appreciate Cardiology resuming heparin. Further intervention next week. 07/23: Seen at bedside no motor complaints. Hemoglobin still stable. No major clinical changes for today. Intervention this coming week. 07/24: Seen bedside. Has good appetite no cough shortness of breath or chest pain. Left heel with more gangrenous changes left feet. Plan for n.p.o. after midnight for surgical debridement tomorrow Vitals/I&O Vitals/I&O: Vital Signs Date Time Temp Pulse Resp B/P (MAP) Pulse Ox O2 Delivery O2 Flow Rate FiO2 07/24/21 11:00 98.1 82 20 131/75 (93) 97 Room Air 98.1 I & O 07/23/21 07/23/21 07/24/21 15:00 23:00 07:00 Intake Total 335 ml 240 ml 0 ml Output Total 750 ml 150 ml Balance 335 ml -510 ml -150 ml Physical Exam Physical Exam: lethargic and weak General: Alert, Oriented X3, Cooperative Heart: Regular rate, Normal S1, Normal S2 Lungs: Clear Abdomen: Normal bowel sounds, Soft, No tenderness Extremities: No clubbing, No cyanosis, Other (Doppler signals intact bilaterally) Skin: Other (No further hematoma accumulation) Labs Labs: Laboratory Tests Test 07/23/21 14:10 07/23/21 17:00 07/23/21 20:45 07/24/21 04:55 Heparin Anti-Xa Act, Unfractionated 0.33 IU/mL (0.30-0.70) 0.32 IU/mL (0.30-0.70) Glucose (Fingerstick) 112 mg/dL (70-99) 126 mg/dL (70-99) White Blood Count 11.9 x10^3/uL (4.0-11.0) Red Blood Count 2.86 x10^6/uL (4.30-5.70) Hemoglobin 8.5 g/dL (13.0-17.5) Hematocrit 26.8 % (39.0-53.0) Mean Corpuscular Volume 94 fL (79-100) Mean Corpuscular Hemoglobin 30 pg (25-35) Mean Corpuscular Hemoglobin Concent 32 g/dL (31-37) Red Cell Distribution Width 15.0 % (11.5-14.5) Platelet Count 296 x10^3/uL (140-400) Test 07/24/21 08:12 07/24/21 11:43 Glucose (Fingerstick) 123 mg/dL (70-99) 117 mg/dL (70-99) Assessment and Plan Assessmemt and Plan Problems Medical Problems: (1) Dehydration Status: Acute (2) Mental status alteration Status: Acute (3) Pneumonia Status: Acute Comment Review of Relevant I have reviewed the following items amanda (where applicable) has been applied. Justifications for Admission Other Justification COVID-19 positive test (U07.1, COVID-19) with Acute Pneumonia (J12.89, Other viral pneumonia) (If respiratory failure or sepsis present, add as separate assessment) SIMONE ARGUELLO MD Jul 24, 2021 12:25
[2021-07-24] MEDS: HEPARIN 25,000UTS/250ML PREMIX 250 ML IV PRN (18:30)
[2021-07-24] MEDS: ATORVASTATIN CALCIUM 20 MG TABLET PO SCH (20:11)
[2021-07-25 03:00] VITALS: BP 147/80
[2021-07-25] MEDS ORDERED: MORPHINE SULFATE 2 MG/ML INJ. IVP PRN (06:00)
[2021-07-25] MEDS ORDERED: fentaNYL PF VIAL 100 MCG/2 ML VIAL IVP PRN ×2 (06:00)
[2021-07-25] MEDS ORDERED: PROCHLORPERAZINE 10 MG/2 ML VIAL. IVP PRN (06:00)
[2021-07-25] MEDS ORDERED: HYDROmorphone 2 MG/ML INJ. IVP PRN (06:00)
[2021-07-25] MEDS ORDERED: IV RINGERS,LACTATED 1000ML 1,000 ML IV SCH (06:00)
[2021-07-25 06:13] LABS: CALCIUM 7.3 mg/dL (8.5-10.1); CREATININE 0.6 mg/dL (0.7-1.3)
[2021-07-25 06:16] LABS: UNFRACTIONATED HEPARIN TESTING 0.32 IU/mL (0.30-0.70)
[2021-07-25 06:18] LABS: HEMATOCRIT 26.5 % (39.0-53.0); HEMOGLOBIN 8.6 g/dL (13.0-17.5); RED BLOOD COUNT 2.84 x10^6/uL (4.30-5.70); RED CELL DISTRIBUTION WIDTH 15.3 % (11.5-14.5); WHITE BLOOD COUNT 11.8 x10^3/uL (4.0-11.0)
[2021-07-25] MEDS ORDERED: PROPOFOL 10 MG/ML (20ML) VIAL. IV ONE (06:52)
[2021-07-25] MEDS ORDERED: fentaNYL PF VIAL 100 MCG/2 ML VIAL ONE (06:53)
[2021-07-25] MEDS ORDERED: ROCURONIUM 50 MG/5 ML VIAL. ONE (06:59)
[2021-07-25 07:00] VITALS: BP 136/79
[2021-07-25] MEDS ORDERED: ONDANSETRON PF 4 MG/2 ML VIAL. ONE (07:08)
[2021-07-25] MEDS ORDERED: DEXAMETHASONE SOD PHOS 4 MG/ML VIAL ONE (07:08)
--- NOTE | 2021-07-25 07:42 | PDOC ---
[employer] PROGRESS NOTE Date of Service DOS: DATE: 07/25/21 TIME: 07:41 Chief Complaint Chief Complaint A/P: Confusion and lethargy, AMS Acute COVID-19 infection Acute infectious and metabolic encephalopathy IVORY due to vasomotor nephropathy improved Lactic acidemia Dysphagia Malnutrition Heel erythema on admit, poor nail care and dystrophic nails PAD - confirmed on arterial dopplers, may have COVID toes History of Present Illness History of Present Illness Mr Lambert is a 60-year-old male that presented 06/29/2021 via [facility] with decreased level of consciousness. Most of the history was obtained via EMS and patient's friend Reese [phone], who states that patient has been sick since about June 22 per Reese, he states that they both had cough cold heada patrice sinus type pain. Per Reese's report patient is okay during the day and very alert and orientated and at night he has a decreased alertness. Patient is unable to help with exam when asked questions he does deny any past medical history, surgeries, or any other health conditions. Reese who is his roommate collaborates any information gotten from the patient. Accu-Chek per EMS was 250, room air sat in the room was 88 to 90%. 07/07: not much improved, about the same. cont current. PULM following. we have no clinimix, cont D5 fluid, 07/08: more alert, can try ST again, if able to sit up, still very weak 07/09: much more alert, bedside swallow of water ok, sits upright, much stronger, will try clears if able, ST to follow. toes are worsening, now black, hannah consult podiatry to follow, 07/10: More alert. Working with speech and swallowing today. Off O2. Less confused. Bilateral toe ulcers assessed by podiatry today. 07/11: More alert, eating. Arterial Doppler was left popliteal and severe distal disease bilaterally. Still has a little bit of a cough. Less confused today. 07/12: Eating reasonably well. Tentative plans for angiogram for consideration of limb salvage bilateral feet tomorrow. Discussed with cardiology. He will need significant follow-up care likely eventual amputations. 07/13: N.p.o. for angiogram today with bilateral SFA occlusive disease and left popliteal disease with left posterior tibial artery with some flow otherwise occlusive disease per cardiology. Discussed vascular surgery consultation for consideration of definitive revascularization with likely bilateral transmetatarsal amputations. Still with a little bit of a cough. Shortness of breath 07/14: Seen bedside. Having some pain in his bilateral extremities. Shortness of breath improved still with little bit of cough. Eating again. Amenable to revascularization and likely surgical debridement next week. Increasing thromboprophylaxis 07/15: Seen bedside. Not hypoxic. Cough is improving. He feels he is mental status is improved but he is definitely still mentating slowly. Complains of foot pain. He is contemplating surgical options but is okay with what ever the surgeons to choose for his likely lower extremity bypass tentatively planned for 07/17/202107/16: Bilateral foot pain still with cough but improving. Still is contemplating surgical options. 07/17: Patient off floor for surgery today. Chart evaluated. s/p bilateral pop/tibial thrombectomies with patch angioplasty. s/p RLE hematoma evacuation 07/18: Patient did and examined at bedside. He is postop day 1 from bilateral thrombectomies yesterday. Looks like he may need more surgery prior to discharge. Continue heparin drip. Suspect leukocytosis today secondary to surgery. Continue current. 07/19: Patient evaluated examined at bedside. He was working with physical therapy when seen. Continuing heparin drip. Recheck CBC today. Cardiology following vascular following. Will likely need further surgery prior to discharge. 07/20: Seen at bedside. Having RLE pain and had Hgb drop overnight. Will transfuse. Stop heparin drip for now. Seen by vascular, hematoma evacuation ordered. serial Hgb. 07/21: Patient evaluated examined at bedside. Hemoglobin improved up to 8.1 today. Underwent hematoma evacuation yesterday. Planning for further intervention next week. 07/22: Examine and evaluated at bedside. Resting in bed no major complaints. Hemoglobin stable. Appreciate Cardiology resuming heparin. Further intervention next week. 07/23: Seen at bedside no motor complaints. Hemoglobin still stable. No major clinical changes for today. Intervention this coming week. 07/24: Seen bedside. Has good appetite no cough shortness of breath or chest pain. Left heel with more gangrenous changes left feet. Plan for n.p.o. after midnight 07/25: Seen bedside. N.p.o. for bilateral foot debridement today. K3. Glucose low 100s. Has a friend visiting today. No chest pain or shortness of breath. Pain controlled Vitals/I&O Vitals/I&O: Vital Signs Date Time Temp Pulse Resp B/P (MAP) Pulse Ox O2 Delivery O2 Flow Rate FiO2 07/25/21 07:30 Room Air 07/25/21 03:00 98.1 80 16 147/80 (102) 100 98.1 07/24/21 22:48 6.0 I & O 07/24/21 07/24/21 07/25/21 15:00 23:00 07:00 Intake Total 380 ml 180 ml 0 ml Output Total 160 ml Balance 220 ml 180 ml 0 ml Physical Exam Physical Exam: lethargic and weak General: Alert, Oriented X3, Cooperative Heart: Regular rate, Normal S1, Normal S2 Lungs: Clear Abdomen: Normal bowel sounds, Soft, No tenderness Extremities: No clubbing, No cyanosis, Other (Doppler signals intact bilaterally) Skin: Other (No further hematoma accumulation) Labs Labs: Laboratory Tests Test 07/24/21 08:12 07/24/21 11:43 07/24/21 17:02 07/24/21 20:46 Glucose (Fingerstick) 123 mg/dL (70-99) 117 mg/dL (70-99) 103 mg/dL (70-99) 113 mg/dL (70-99) Test 07/25/21 05:30 White Blood Count 11.8 x10^3/uL (4.0-11.0) Red Blood Count 2.84 x10^6/uL (4.30-5.70) Hemoglobin 8.6 g/dL (13.0-17.5) Hematocrit 26.5 % (39.0-53.0) Mean Corpuscular Volume 93 fL (79-100) Mean Corpuscular Hemoglobin 30 pg (25-35) Mean Corpuscular Hemoglobin Concent 33 g/dL (31-37) Red Cell Distribution Width 15.3 % (11.5-14.5) Platelet Count 357 x10^3/uL (140-400) Activated Partial Thromboplast Time 108 SEC (24-38) Heparin Anti-Xa Act, Unfractionated 0.32 IU/mL (0.30-0.70) Sodium Level 142 mmol/L (136-145) Potassium Level 3.0 mmol/L (3.5-5.1) Chloride Level 106 mmol/L (98-107) Carbon Dioxide Level 28 mmol/L (21-32) Anion Gap 8 (6-14) Blood Urea Nitrogen 8 mg/dL (8-26) Creatinine 0.6 mg/dL (0.7-1.3) Estimated GFR (Cockcroft-Gault) 137.0 Glucose Level 112 mg/dL (70-99) Calcium Level 7.3 mg/dL (8.5-10.1) Assessment and Plan Assessmemt and Plan Problems Medical Problems: (1) Dehydration Status: Acute (2) Mental status alteration Status: Acute (3) Pneumonia Status: Acute Comment Review of Relevant I have reviewed the following items amanda (where applicable) has been applied. Justifications for Admission Other Justification COVID-19 positive test (U07.1, COVID-19) with Acute Pneumonia (J12.89, Other viral pneumonia) (If respiratory failure or sepsis present, add as separate assessment) SIMONE ARGUELLO MD Jul 25, 2021 07:42
[2021-07-25] MEDS ORDERED: LIDOCAINE 1% PF 30 ML VIAL. ONE (07:55)
[2021-07-25] MEDS: PANTOPRAZOLE IV PUSH 40 MG VIAL. IVP SCH (07:58)
[2021-07-25] MEDS: POTASSIUM CHLORIDE 10MEQ 100 ML IV SCH ×6 (07:59→13:25)
[2021-07-25] MEDS: INSULIN LISPRO 300 UNITS/3 ML VIAL. SQ SCH ×3 (08:00→17:00)
[2021-07-25 11:00] VITALS: BP 152/78
--- NOTE | 2021-07-25 11:32 | PDOC ---
PROGRESS NOTES Date of Service DATE: 07/25/21 TIME: 11:28 Subjective Subjective He is without complaints. He denies any foot pain at this time. He reports that he has done limited ambulation with physical therapy. Objective Objective Vital Signs Date Time Temp Pulse Resp B/P (MAP) Pulse Ox O2 Delivery O2 Flow Rate FiO2 07/25/21 07:30 Room Air 07/25/21 07:00 98.1 87 19 136/79 (98) 94 98.1 07/24/21 22:48 6.0 Intake and Output 07/25/21 06:59 Intake Total 560 ml Output Total 160 ml Balance 400 ml Intake Oral 560 ml Output Urine Total 160 ml # Voids 3 Physical Exam Abdomen: Soft, No tenderness Heart: Regular rate Extremities: Other (Bilateral leg incisions intact without erythema or signs of infection. 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 No surrounding erythema or fluctuance at this time. The skin on the left forefoot continues to improve. There has been significant improvement since Saturday.) General: Alert, No acute distress Lungs: Normal air movement Assessment Assessment Problems Medical Problems: (1) Dehydration Status: Acute (2) Mental status alteration Status: Acute (3) Pneumonia Status: Acute 4. Peripheral arterial disease with gangrene of both toes status post bilateral popliteal and tibial artery thrombectomy. 5. Recovering from COVID-19 infection including encephalopathy Plan Plan of Care He is doing well following bilateral popliteal and tibial artery thrombectomy. He has gangrenous changes to toes on both feet and both heels. The tissue continues to demarcate and improve at the edges. He was scheduled for left transmetatarsal amputation and right toe amputations today, but I feel that there is a chance that he may be able to preserve more of his left forefoot if we allow tissue more time for healing. There is no evidence of ongoing infection in his feet. Surgery canceled for today due to improvement in his forefoot skin on the left. May continue physical and occupational therapy. Would use postop shoes for ambulation and PRAFO boots while not walking to protect heels. Resume heparin infusion, but may transition to oral anticoagulation. He will need at least 3 to 6 months of oral anticoagulation. We will plan to see him in the office in 2 to 3 weeks at which time janet can be removed from his legs and we can reassess whether we should proceed with toe amputations. Comment Review of Relevant I have reviewed the following items amanda (where applicable) has been applied. Labs Laboratory Tests Test 07/23/21 14:10 07/23/21 17:00 07/23/21 20:45 07/24/21 04:55 Heparin Anti-Xa Act, Unfractionated 0.33 IU/mL (0.30-0.70) 0.32 IU/mL (0.30-0.70) Glucose (Fingerstick) 112 mg/dL (70-99) 126 mg/dL (70-99) White Blood Count 11.9 x10^3/uL (4.0-11.0) Red Blood Count 2.86 x10^6/uL (4.30-5.70) Hemoglobin 8.5 g/dL (13.0-17.5) Hematocrit 26.8 % (39.0-53.0) Mean Corpuscular Volume 94 fL (79-100) Mean Corpuscular Hemoglobin 30 pg (25-35) Mean Corpuscular Hemoglobin Concent 32 g/dL (31-37) Red Cell Distribution Width 15.0 % (11.5-14.5) Platelet Count 296 x10^3/uL (140-400) Test 07/24/21 08:12 07/24/21 11:43 07/24/21 17:02 07/24/21 20:46 Glucose (Fingerstick) 123 mg/dL (70-99) 117 mg/dL (70-99) 103 mg/dL (70-99) 113 mg/dL (70-99) Test 07/25/21 05:30 07/25/21 07:42 07/25/21 11:01 White Blood Count 11.8 x10^3/uL (4.0-11.0) Red Blood Count 2.84 x10^6/uL (4.30-5.70) Hemoglobin 8.6 g/dL (13.0-17.5) Hematocrit 26.5 % (39.0-53.0) Mean Corpuscular Volume 93 fL (79-100) Mean Corpuscular Hemoglobin 30 pg (25-35) Mean Corpuscular Hemoglobin Concent 33 g/dL (31-37) Red Cell Distribution Width 15.3 % (11.5-14.5) Platelet Count 357 x10^3/uL (140-400) Activated Partial Thromboplast Time 108 SEC (24-38) Heparin Anti-Xa Act, Unfractionated 0.32 IU/mL (0.30-0.70) Sodium Level 142 mmol/L (136-145) Potassium Level 3.0 mmol/L (3.5-5.1) Chloride Level 106 mmol/L (98-107) Carbon Dioxide Level 28 mmol/L (21-32) Anion Gap 8 (6-14) Blood Urea Nitrogen 8 mg/dL (8-26) Creatinine 0.6 mg/dL (0.7-1.3) Estimated GFR (Cockcroft-Gault) 137.0 Glucose Level 112 mg/dL (70-99) Calcium Level 7.3 mg/dL (8.5-10.1) Magnesium Level 1.8 mg/dL (1.8-2.4) Glucose (Fingerstick) 102 mg/dL (70-99) 98 mg/dL (70-99) Laboratory Tests Test 07/24/21 11:43 07/24/21 17:02 07/24/21 20:46 07/25/21 05:30 Glucose (Fingerstick) 117 mg/dL (70-99) 103 mg/dL (70-99) 113 mg/dL (70-99) White Blood Count 11.8 x10^3/uL (4.0-11.0) Red Blood Count 2.84 x10^6/uL (4.30-5.70) Hemoglobin 8.6 g/dL (13.0-17.5) Hematocrit 26.5 % (39.0-53.0) Mean Corpuscular Volume 93 fL (79-100) Mean Corpuscular Hemoglobin 30 pg (25-35) Mean Corpuscular Hemoglobin Concent 33 g/dL (31-37) Red Cell Distribution Width 15.3 % (11.5-14.5) Platelet Count 357 x10^3/uL (140-400) Activated Partial Thromboplast Time 108 SEC (24-38) Heparin Anti-Xa Act, Unfractionated 0.32 IU/mL (0.30-0.70) Sodium Level 142 mmol/L (136-145) Potassium Level 3.0 mmol/L (3.5-5.1) Chloride Level 106 mmol/L (98-107) Carbon Dioxide Level 28 mmol/L (21-32) Anion Gap 8 (6-14) Blood Urea Nitrogen 8 mg/dL (8-26) Creatinine 0.6 mg/dL (0.7-1.3) Estimated GFR (Cockcroft-Gault) 137.0 Glucose Level 112 mg/dL (70-99) Calcium Level 7.3 mg/dL (8.5-10.1) Magnesium Level 1.8 mg/dL (1.8-2.4) Test 07/25/21 07:42 07/25/21 11:01 Glucose (Fingerstick) 102 mg/dL (70-99) 98 mg/dL (70-99) Medications Current Medications Sodium Chloride 1,000 ml @ 999 mls/hr 1X ONCE IV Last administered on 06/29/21at 19:10; Start 06/29/21 at 19:00; Stop 06/29/21 at 20:00; Status DC Dexamethasone Sodium Phosphate (Decadron) 10 mg 1X ONCE IV Last administered on 06/29/21at 20:30; Start 06/29/21 at 20:00; Stop 06/29/21 at 20:05; Status DC Sodium Chloride 1,000 ml @ 999 mls/hr 1X ONCE IV Last administered on 06/29/21at 20:30; Start 06/29/21 at 20:00; Stop 06/29/21 at 21:00; Status DC Ceftriaxone Sodium (Rocephin) 1 gm 1X ONCE IVP Last administered on 06/29/21at 20:29; Start 06/29/21 at 20:00; Stop 06/29/21 at 20:05; Status DC Azithromycin 250 ml @ 250 mls/hr 1X ONCE IV Last administered on 06/29/21at 20:00; Start 06/29/21 at 20:00; Stop 06/29/21 at 20:59; Status DC Sodium Chloride 1,000 ml @ 75 mls/hr [id number] IV Last administered on 06/30/21at 12:32; Start 06/29/21 at 20:45; Stop 06/30/21 at 20:44; Status DC Info (FLU VACCINE SCREEN per RX) 0.5 each 1X ONCE MC ; Start 07/01/21 at 09:00; Stop 07/01/21 at 09:01; Status DC Ascorbic Acid (Vitamin C) 3,000 mg TID PO Last administered on 07/24/21at 20:10; Start 06/30/21 at 21:00 Dexamethasone Sodium Phosphate (Decadron) 6 mg DAILY IVP Last administered on 07/10/21at 08:57; Start 06/30/21 at 16:00; Stop 07/10/21 at 12:29; Status DC Thiamine Mononitrate (Vitamin B-1) 300 mg DAILY PO Last administered on 07/24/21at 07:36; Start 06/30/21 at 16:00 Zinc Sulfate (Orazinc) 220 mg DAILY PO Last administered on 07/24/21at 07:36; Start 06/30/21 at 16:00 Sennosides (Senna) 17.2 mg PRN BID PRN PO CONSTIPATION; Start 06/30/21 at 15:15 Docusate Sodium (Colace) 100 mg PRN DAILY PRN PO HARD STOOLS; Start 06/30/21 at 15:15 Ondansetron HCl (Zofran) 4 mg PRN Q6HRS PRN IVP NAUSEA/VOMITING, 1st CHOICE; Start 06/30/21 at 15:15; Stop 07/05/21 at 14:02; Status DC Dextrose (Dextrose 50%-Water Syringe) 12.5 gm PRN Q15MIN PRN IV SEE COMMENTS; Start 06/30/21 at 15:15; Stop 07/05/21 at 12:45; Status DC Acetaminophen (Tylenol) 650 mg PRN Q4HRS PRN PO TEMP OVER 100.4F OR MILD PAIN; Start 06/30/21 at 15:15 Lorazepam (Ativan) 0.5 mg PRN Q6HRS PRN PO ANXIETY / AGITATION; Start 06/30/21 at 15:15; Stop 07/05/21 at 14:02; Status DC Lorazepam (Ativan Inj) 0.25 mg PRN Q4HRS PRN IV ANXIETY / AGITATION; Start 06/30/21 at 15:15; Stop 07/05/21 at 14:02; Status DC Enoxaparin Sodium (Lovenox 40mg Syringe) 40 mg Q24H SQ Last administered on 07/13/21at 17:20; Start 06/30/21 at 16:00; Stop 07/14/21 at 12:21; Status DC Prochlorperazine Edisylate (Compazine) 10 mg PRN Q6HRS PRN IV NAUSEA/VOMITING, 2nd CHOICE; Start 06/30/21 at 15:15; Stop 07/05/21 at 14:02; Status DC Diphenhydramine HCl (Benadryl) 25 mg PRN Q6HRS PRN IVP ITCHING; Start 06/30/21 at 15:15; Stop 07/05/21 at 14:02; Status DC Diphenhydramine HCl (Benadryl) 25 mg PRN Q6HRS PRN PO ITCHING; Start 06/30/21 at 15:15; Stop 07/05/21 at 14:02; Status DC Diphenhydramine HCl (Benadryl) 25 mg PRN QHS PRN PO INSOMNIA, 1ST CHOICE; Start 06/30/21 at 15:15; Stop 07/05/21 at 14:02; Status DC Zolpidem Tartrate (Ambien) 2.5 mg PRN QHS PRN PO INSOMNIA, 2ND CHOICE; Start 06/30/21 at 15:15; Stop 07/05/21 at 14:02; Status DC Pantoprazole Sodium (PROTONIX VIAL for IV PUSH) 40 mg DAILYAC IVP Last administered on 07/25/21at 07:58; Start 06/30/21 at 16:00 Amino Acids/ Electrolytes/ Dextrose 1,000 ml @ 80 mls/hr [id number] IV ; Start 07/04/21 at 09:15; Status UNV Dextrose/Lactated Ringer's 1,000 ml @ 80 mls/hr [id number] IV Last administered on 07/12/21at 06:27; Start 07/04/21 at 09:30; Stop 07/12/21 at 10:58; Status DC Insulin Human Lispro (HumaLOG) 0-5 UNITS TIDWMEALS SQ ; Start 07/05/21 at 17:00 Dextrose (Dextrose 50%-Water Syringe) 12.5 gm PRN Q15MIN PRN IV SEE COMMENTS Last administered on 07/09/21at 23:48; Start 07/05/21 at 12:45 Aspirin (Ecotrin) 81 mg DAILYWBKFT PO Last administered on 07/20/21at 08:52; Start 07/11/21 at 15:00; Stop 07/20/21 at 14:10; Status DC Atorvastatin Calcium (Lipitor) 20 mg QHS PO Last administered on 07/24/21at 20:11; Start 07/11/21 at 21:00 Metoprolol Tartrate (Lopressor) 25 mg BID PO Last administered on 07/24/21at 20:10; Start 07/12/21 at 12:15 Heparin Sodium/ Sodium Chloride (HEPARIN for ARTERIAL LINE FLUSH) 1,000 unit 1X ONCE IART Last administered on 07/13/21at 13:00; Start 07/13/21 at 13:00; Stop 07/13/21 at 13:01; Status DC Heparin Sodium/ Sodium Chloride (HEPARIN for ARTERIAL LINE FLUSH) 1,000 unit 1X ONCE IART Last administered on 07/13/21at 13:00; Start 07/13/21 at 13:00; Stop 07/13/21 at 13:01; Status DC Midazolam HCl (Versed) 2 mg 1X ONCE IV Last administered on 07/13/21at 13:20; Start 07/13/21 at 13:00; Stop 07/13/21 at 13:01; Status DC Fentanyl Citrate (Fentanyl 2ml Vial) 100 mcg 1X ONCE IV Last administered on 07/13/21at 13:20; Start 07/13/21 at 13:00; Stop 07/13/21 at 13:01; Status DC Iodixanol (Visipaque 320) 100 ml 1X ONCE IART Last administered on 07/13/21at 13:50; Start 07/13/21 at 13:00; Stop 07/13/21 at 13:01; Status DC Lidocaine HCl (Lidocaine 1% 20ml Vial) 20 ml 1X ONCE INJ Last administered on 07/13/21at 13:22; Start 07/13/21 at 13:00; Stop 07/13/21 at 13:01; Status DC Nitroglycerin (Nitroglycerin) 200 mcg 1X ONCE IART Last administered on 07/13/21at 13:23; Start 07/13/21 at 13:30; Stop 07/13/21 at 13:35; Status DC Verapamil HCl (Verapamil) 2.5 mg 1X ONCE IART Last administered on 07/13/21at 13:23; Start 07/13/21 at 13:30; Stop 07/13/21 at 13:35; Status DC Heparin Sodium (Porcine) (Heparin Sodium) 2,500 unit 1X ONCE IART Last administered on 07/13/21at 13:30; Start 07/13/21 at 13:30; Stop 07/13/21 at 13:35; Status DC Potassium Chloride (Klor-Con) 20 meq 1X ONCE PO Last administered on 07/14/21at 11:48; Start 07/14/21 at 11:00; Stop 07/14/21 at 11:01; Status DC Enoxaparin Sodium (Lovenox 80mg Syringe) 80 mg Q12HR SQ Last administered on 07/16/21at 21:01; Start 07/14/21 at 13:00; Stop 07/17/21 at 12:12; Status DC Fentanyl Citrate (Fentanyl 2ml Vial) 25 mcg PRN Q5MIN PRN IVP MILD PAIN 1-3; Start 07/17/21 at 06:00; Stop 07/18/21 at 06:00; Status DC Fentanyl Citrate (Fentanyl 2ml Vial) 50 mcg PRN Q5MIN PRN IVP MODERATE PAIN 4- 6; Start 07/17/21 at 06:00; Stop 07/18/21 at 06:00; Status DC Morphine Sulfate (Morphine Sulfate) 1 mg PRN Q10MIN PRN IVP SEVERE PAIN 7-10; Start 07/17/21 at 06:00; Stop 07/18/21 at 06:00; Status DC Ringer's Solution 1,000 ml @ 30 mls/hr Q24H IV Last administered on 07/17/21at 07:50; Start 07/17/21 at 06:00; Stop 07/17/21 at 17:59; Status DC Hydromorphone HCl (Dilaudid) 0.5 mg PRN Q10MIN PRN IVP SEVERE PAIN 7-10, 2nd CHOICE; Start 07/17/21 at 06:00; Stop 07/18/21 at 06:00; Status DC Prochlorperazine Edisylate (Compazine) 5 mg PACU PRN PRN IVP NAUSEA, MRX1; Start 07/17/21 at 06:00; Stop 07/18/21 at 06:00; Status DC Cefazolin Sodium 1 gm/Sodium Chloride 500 ml @ 500 mls/hr 1X ONCE IRR Last administered on 07/17/21at 08:57; Start 07/17/21 at 08:00; Stop 07/17/21 at 08:59; Status DC Heparin Sodium (Porcine) 5000 unit/Sodium Chloride 505 ml @ 505 mls/hr 1X ONCE IRR Last administered on 07/17/21at 08:57; Start 07/17/21 at 08:00; Stop 07/17/21 at 08:59; Status DC Sodium Chloride 1,000 ml @ 100 mls/hr Q10H IV Last administered on 07/21/21at 10:38; Start 07/17/21 at 12:00; Stop 07/21/21 at 15:21; Status DC Morphine Sulfate (Morphine Sulfate) 2 mg PRN Q2HR PRN IVP PAIN Last administered on 07/20/21at 09:38; Start 07/17/21 at 08:15 Oxycodone/ Acetaminophen (Percocet 5/325) 1 tab PRN Q4HRS PRN PO MODERATE PAIN Last administered on 07/22/21at 12:03; Start 07/17/21 at 08:15 Sugammadex Sodium (Bridion) 200 mg 1X ONCE IVP ; Start 07/17/21 at 09:30; Stop 07/17/21 at 09:31; Status DC Cefazolin Sodium 1 gm/Sodium Chloride 500 ml @ 500 mls/hr 1X ONCE IRR Last administered on 07/17/21at 10:30; Start 07/17/21 at 10:30; Stop 07/17/21 at 11:29; Status DC Cellulose (Surgicel Fibrillar 1x2) 1 each STK-MED ONCE TP Last administered on 07/17/21at 11:23; Start 07/17/21 at 11:23; Stop 07/17/21 at 11:26; Status DC Heparin Sodium/ Dextrose 250 ml @ 10 mls/hr q10hr IV ; Start 07/17/21 at 12:15; Stop 07/17/21 at 12:15; Status DC Cefazolin Sodium/ Dextrose 50 ml @ 100 mls/hr Q8HRS IV Last administered on 07/17/21at 19:52; Start 07/17/21 at 14:00; Stop 07/17/21 at 22:29; Status DC Heparin Sodium/ Dextrose 250 ml @ 10 mls/hr q10hr IV ; Start 07/17/21 at 12:15; Stop 07/17/21 at 13:04; Status DC Heparin Sodium/ Dextrose 250 ml @ 10 mls/hr CONT PRN PRN IV SEE PROTOCOL Last administered on 07/17/21at 13:00; Start 07/17/21 at 13:15; Stop 07/18/21 at 11:06; Status DC Heparin Sodium/ Dextrose 250 ml @ 13.264 mls/ hr CONT PRN IV PER PROTOCOL Last administered on 07/19/21at 21:46; Start 07/18/21 at 11:15; Stop 07/20/21 at 09:38; Status DC Heparin Sodium (Porcine) (Heparin Sodium) 2,500 unit PRN Q6HRS PRN IV FOR UFH LEVEL LESS THAN 0.2; Start 07/18/21 at 11:15; Stop 07/20/21 at 13:11; Status DC Heparin Sodium (Porcine) (Heparin Sodium) 1,250 unit PRN Q6HRS PRN IV FOR UFH LEVEL 0.2 - 0.29 Last administered on 07/18/21at 20:10; Start 07/18/21 at 11:15; Stop 07/20/21 at 13:11; Status DC Glycopyrrolate (Glycopyrrolate) 1 mg STK-MED ONCE .ROUTE ; Start 07/17/21 at 12:00; Stop 07/18/21 at 12:44; Status DC Heparin Sodium/ Sodium Chloride 500 ml @ As Directed STK-MED ONCE .ROUTE ; Start 07/13/21 at 08:02; Stop 07/18/21 at 12:49; Status DC Iodixanol (Visipaque 320) 100 ml STK-MED ONCE .ROUTE ; Start 07/13/21 at 08:02; Stop 07/18/21 at 12:49; Status DC Heparin Sodium/ Sodium Chloride 1,000 ml @ As Directed STK-MED ONCE .ROUTE ; Start 07/13/21 at 12:45; Stop 07/18/21 at 12:53; Status DC Midazolam HCl (Versed) 2 mg STK-MED ONCE .ROUTE ; Start 07/13/21 at 12:46; Stop 07/18/21 at 12:53; Status DC Fentanyl Citrate (Fentanyl 2ml Vial) 100 mcg STK-MED ONCE .ROUTE ; Start 07/13/21 at 12:46; Stop 07/18/21 at 12:53; Status DC Heparin Sodium (Porcine) (Heparin Sodium) 10,000 unit STK-MED ONCE .ROUTE ; Start 07/13/21 at 12:52; Stop 07/18/21 at 12:53; Status DC Verapamil HCl (Verapamil) 5 mg STK-MED ONCE .ROUTE ; Start 07/13/21 at 13:12; Stop 07/18/21 at 12:53; Status DC Cellulose (Surgicel Fibrillar 1x2) 1 each STK-MED ONCE .ROUTE ; Start 07/17/21 at 07:08; Stop 07/18/21 at 13:29; Status DC Iohexol (Omnipaque 300 Mg/ml) 50 ml STK-MED ONCE .ROUTE ; Start 07/17/21 at 07:08; Stop 07/18/21 at 13:29; Status DC Protamine Sulfate (Protamine) 50 mg STK-MED ONCE IV ; Start 07/17/21 at 07:08; Stop 07/18/21 at 13:29; Status DC Phenylephrine HCl (Jesus-Synephrine Inj) 10 mg STK-MED ONCE .ROUTE ; Start 07/17/21 at 05:34; Stop 07/18/21 at 13:30; Status DC Ephedrine Sulfate (ePHEDrine PF IN SALINE SYRINGE) 50 mg STK-MED ONCE IV ; Start 07/17/21 at 05:34; Stop 07/18/21 at 13:30; Status DC Succinylcholine Chloride (Anectine) 200 mg STK-MED ONCE .ROUTE ; Start 07/17/21 at 05:35; Stop 07/18/21 at 13:30; Status DC Epinephrine HCl (Adrenalin) 1 mg STK-MED ONCE .ROUTE ; Start 07/17/21 at 05:35; Stop 07/18/21 at 13:30; Status DC Protamine Sulfate (Protamine) 50 mg STK-MED ONCE IV ; Start 07/17/21 at 07:35; Stop 07/18/21 at 13:31; Status DC Heparin Sodium (Porcine) (Heparin Sodium) 10,000 unit STK-MED ONCE .ROUTE ; Start 07/17/21 at 07:35; Stop 07/18/21 at 13:31; Status DC Dexamethasone Sodium Phosphate (Decadron) 4 mg STK-MED ONCE .ROUTE ; Start 07/17/21 at 07:35; Stop 07/18/21 at 13:31; Status DC Ondansetron HCl (Zofran) 4 mg STK-MED ONCE .ROUTE ; Start 07/17/21 at 07:35; Stop 07/18/21 at 13:31; Status DC Epinephrine HCl (EPINEPHrine SYRINGE) 1 mg STK-MED ONCE .ROUTE ; Start 07/17/21 at 07:35; Stop 07/18/21 at 13:31; Status DC Midazolam HCl (Versed) 2 mg STK-MED ONCE .ROUTE ; Start 07/17/21 at 07:37; Stop 07/18/21 at 13:31; Status DC Fentanyl Citrate (Fentanyl 5ml Vial) 250 mcg STK-MED ONCE .ROUTE ; Start 07/17/21 at 07:37; Stop 07/18/21 at 13:31; Status DC Cefazolin Sodium/ Dextrose 50 ml @ As Directed STK-MED ONCE IV ; Start 07/17/21 at 08:51; Stop 07/18/21 at 13:35; Status DC Hydromorphone HCl (Dilaudid) 2 mg STK-MED ONCE .ROUTE ; Start 07/17/21 at 11:54; Stop 07/18/21 at 13:36; Status DC Fentanyl Citrate (Fentanyl 2ml Vial) 100 mcg STK-MED ONCE .ROUTE ; Start 07/17/21 at 11:54; Stop 07/18/21 at 13:36; Status DC Morphine Sulfate (Morphine Sulfate) 2 mg STK-MED ONCE .ROUTE ; Start 07/17/21 at 11:55; Stop 07/18/21 at 13:36; Status DC Cefazolin Sodium/ Dextrose 50 ml @ 100 mls/hr 1X PREOP PRN IV PRIOR TO PROCEDURE Last administered on 07/20/21at 15:45; Start 07/20/21 at 14:00; Stop 07/21/21 at 13:59; Status DC Cefazolin Sodium/ Dextrose 50 ml @ As Directed STK-MED ONCE IV ; Start 07/20/21 at 13:50; Stop 07/20/21 at 13:50; Status DC Propofol (Diprivan) 200 mg STK-MED ONCE IV ; Start 07/20/21 at 14:06; Stop 07/20/21 at 14:07; Status DC Lidocaine HCl (Xylocaine-Mpf 1% 5ml Vial) 5 ml STK-MED ONCE .ROUTE ; Start 07/20/21 at 14:07; Stop 07/20/21 at 14:07; Status DC Fentanyl Citrate (Fentanyl 2ml Vial) 100 mcg STK-MED ONCE .ROUTE ; Start 07/20/21 at 14:07; Stop 07/20/21 at 14:07; Status DC Cellulose (Surgicel Fibrillar 1x2) 1 each STK-MED ONCE .ROUTE Last administered on 07/20/21at 16:07; Start 07/20/21 at 16:04; Stop 07/20/21 at 16:05; Status DC Fentanyl Citrate (Fentanyl 2ml Vial) 25 mcg PRN Q5MIN PRN IVP MILD PAIN 1-3; Start 07/20/21 at 16:15; Stop 07/21/21 at 02:00; Status DC Fentanyl Citrate (Fentanyl 2ml Vial) 50 mcg PRN Q5MIN PRN IVP MODERATE PAIN 4- 6; Start 07/20/21 at 16:15; Stop 07/21/21 at 02:00; Status DC Morphine Sulfate (Morphine Sulfate) 1 mg PRN Q10MIN PRN IVP SEVERE PAIN 7-10; Start 07/20/21 at 16:15; Stop 07/21/21 at 02:00; Status DC Hydromorphone HCl (Dilaudid) 0.5 mg PRN Q10MIN PRN IVP SEVERE PAIN 7-10, 2nd CHOICE; Start 07/20/21 at 16:15; Stop 07/21/21 at 02:00; Status DC Prochlorperazine Edisylate (Compazine) 5 mg PACU PRN PRN IVP NAUSEA, MRX1; Start 07/20/21 at 16:15; Stop 07/25/21 at 07:58; Status DC Insulin Human Lispro (HumaLOG VIAL for OP,RR ONLY) 0-10 units PRN Q1HR PRN SQ PER PROTOCOL; Start 07/20/21 at 16:15; Stop 07/21/21 at 16:14; Status DC Cefazolin Sodium/ Dextrose 50 ml @ 100 mls/hr Q8HRS IV Last administered on 07/21/21at 05:21; Start 07/20/21 at 22:00; Stop 07/21/21 at 06:29; Status DC Oxycodone/ Acetaminophen (Percocet 5/325) 2 tab PRN Q4HRS PRN PO SEVERE PAIN; Start 07/20/21 at 16:45 Hydromorphone HCl (Dilaudid) 2 mg STK-MED ONCE .ROUTE ; Start 07/20/21 at 16:50; Stop 07/20/21 at 16:50; Status DC Aspirin (Aspirin Chewable) 81 mg DAILYWBKFT PO Last administered on 07/24/21at 07:36; Start 07/23/21 at 08:00 Heparin Sodium/ Dextrose 250 ml @ 8.789 mls/ hr CONT PRN IV PER PROTOCOL Last administered on 07/24/21at 18:30; Start 07/22/21 at 16:30 Heparin Sodium (Porcine) (Heparin Sodium) 2,000 unit PRN Q6HRS PRN IV FOR UFH LEVEL LESS THAN 0.2 Last administered on 07/23/21at 01:17; Start 07/22/21 at 16:30 Cefazolin Sodium/ Dextrose 50 ml @ 100 mls/hr 1X PREOP PRN IV PRIOR TO PROCEDURE; Start 07/25/21 at 06:00; Stop 07/25/21 at 18:00 Cefazolin Sodium 1 gm/Sodium Chloride 500 ml @ 500 mls/hr 1X ONCE IRR ; Start 07/25/21 at 06:00; Stop 07/25/21 at 07:00; Status DC Fentanyl Citrate (Fentanyl 2ml Vial) 25 mcg PRN Q5MIN PRN IVP MILD PAIN 1-3; Start 07/25/21 at 06:00; Stop 07/25/21 at 20:00 Fentanyl Citrate (Fentanyl 2ml Vial) 50 mcg PRN Q5MIN PRN IVP MODERATE PAIN 4- 6; Start 07/25/21 at 06:00; Stop 07/25/21 at 20:00 Morphine Sulfate (Morphine Sulfate) 1 mg PRN Q10MIN PRN IVP SEVERE PAIN 7-10; Start 07/25/21 at 06:00; Stop 07/25/21 at 20:00 Ringer's Solution 1,000 ml @ 30 mls/hr Q24H IV Last administered on 07/25/21at 07:58; Start 07/25/21 at 06:00; Stop 07/25/21 at 17:59 Hydromorphone HCl (Dilaudid) 0.5 mg PRN Q10MIN PRN IVP SEVERE PAIN 7-10, 2nd CHOICE; Start 07/25/21 at 06:00; Stop 07/25/21 at 20:00 Prochlorperazine Edisylate (Compazine) 5 mg PACU PRN PRN IVP NAUSEA, MRX1; Start 07/25/21 at 06:00; Stop 07/25/21 at 20:00 Propofol (Diprivan) 200 mg STK-MED ONCE IV ; Start 07/25/21 at 06:52; Stop 07/25/21 at 06:53; Status DC Fentanyl Citrate (Fentanyl 2ml Vial) 100 mcg STK-MED ONCE .ROUTE ; Start 07/25/21 at 06:53; Stop 07/25/21 at 06:53; Status DC Rocuronium Villalba (Zemuron) 50 mg STK-MED ONCE .ROUTE ; Start 07/25/21 at 06:59; Stop 07/25/21 at 06:59; Status DC Ondansetron HCl (Zofran) 4 mg STK-MED ONCE .ROUTE ; Start 07/25/21 at 07:08; Stop 07/25/21 at 07:08; Status DC Dexamethasone Sodium Phosphate (Decadron) 4 mg STK-MED ONCE .ROUTE ; Start 07/25/21 at 07:08; Stop 07/25/21 at 07:08; Status DC Potassium Chloride/Water 100 ml @ 100 mls/hr Q1H IV Last administered on 07/25/21at 11:05; Start 07/25/21 at 08:00; Stop 07/25/21 at 13:59 Lidocaine HCl (Xylocaine 1% Pf 30ml Vial) 30 ml STK-MED ONCE .ROUTE ; Start 07/25/21 at 07:55; Stop 07/25/21 at 07:56; Status DC Active Scripts Active No Active Prescriptions or Reported Medications Vitals/I & O Vital Sign - Last 24 Hours 07/24/21 07/24/21 07/24/21 07/24/21 15:46 19:53 20:10 22:17 Temp 97.6 98.0 97.6 98.0 Pulse 87 92 88 Resp 18 16 B/P (MAP) 143/91 (108) 128/76 (93) 128/76 Pulse Ox 97 99 O2 Delivery Room Air Room Air Room Air 07/24/21 07/24/21 07/25/21 07/25/21 22:48 23:03 03:00 07:00 Temp 98.0 98.5 98.1 98.1 98.0 98.5 98.1 98.1 Pulse 88 77 80 87 Resp 16 16 19 B/P (MAP) 128/76 (93) 126/77 (93) 147/80 (102) 136/79 (98) Pulse Ox 99 100 100 94 O2 Delivery Room Air Room Air Room Air Room Air O2 Flow Rate 6.0 07/25/21 07:30 O2 Delivery Room Air Intake and Output 07/24/21 07/24/21 07/25/21 14:59 22:59 06:59 Intake Total 380 ml 180 ml 0 ml Output Total 160 ml Balance 220 ml 180 ml 0 ml Justifications for Admission Other Justification COVID-19 positive test (U07.1, COVID-19) with Acute Pneumonia (J12.89, Other viral pneumonia) (If respiratory failure or sepsis present, add as separate assessment) HASMUKH KLINE MD Jul 25, 2021 11:32
[2021-07-25] MEDS: THIAMINE 100 MG TABLET. PO SCH (12:10)
[2021-07-25] MEDS: ASCORBIC ACID 1,000 MG TABLET PO SCH (12:10)
[2021-07-25] MEDS: ZINC SULFATE 220 MG CAPSULE. PO SCH (12:10)
[2021-07-25] MEDS: ASPIRIN CHEWABLE 81 MG TABLET. PO SCH (12:10)
[2021-07-25] MEDS: METOPROLOL TART IMMED RELEASE 25 MG TABLET. PO SCH ×2 (12:11→20:21)
--- NOTE | 2021-07-25 14:30 | NUR ---
SS following up with discharge planning. SS reviewed pt chart and discussed with pt RN. Pt is currently on room air. COVID19 recovered. Pt on Heparin drip. Cardiology and Vascular following. Pt was scheduled to have surgery today. SS discussed with Vascular doctor. Surgery cancelled for today due to improvements. Per physician, pt now weight bearing as tolerated with flat or post op shoe. Heparin drip. PT/OT to continue to follow. Pt to follow up in 2-3 weeks with vascular to reassess. Dr. Griffin notified and will discuss with pt. SS met with pt and friend in room and pt reported that his overall preference would be to discharge to home. Not medically ready. Self pay. [facility] notified. Nadia from [facility] to discuss with Dr. Griffin. SS will continue to follow for discharge planning.
[2021-07-25 15:00] VITALS: BP 127/82
[2021-07-25 19:00] VITALS: BP 149/73
[2021-07-25] MEDS: ATORVASTATIN CALCIUM 20 MG TABLET PO SCH (20:21)
[2021-07-25] MEDS: oxyCODONE/APAP 5/325 1 TAB TABLET PO PRN (20:22)
[2021-07-25] MEDS: HEPARIN 25,000UTS/250ML PREMIX 250 ML IV PRN (20:23)
[2021-07-25 23:00] VITALS: BP 139/77
[2021-07-26 02:43] VITALS: BP 124/68
[2021-07-26] MEDS: PANTOPRAZOLE IV PUSH 40 MG VIAL. IVP SCH (05:44)
[2021-07-26 06:59] LABS: ALBUMIN/GLOBULIN RATIO 0.5 (1.0-1.7); CALCIUM 7.7 mg/dL (8.5-10.1); CREATININE 0.6 mg/dL (0.7-1.3); POTASSIUM 3.9 mmol/L (3.5-5.1); TOTAL BILIRUBIN 1.6 mg/dL (0.2-1.0); TOTAL PROTEIN 5.8 g/dL (6.4-8.2)
[2021-07-26 07:00] VITALS: BP 145/79
[2021-07-26] MEDS: INSULIN LISPRO 300 UNITS/3 ML VIAL. SQ SCH ×3 (08:00→16:27)
[2021-07-26] MEDS: ASCORBIC ACID 500 MG TABLET PO SCH (09:24)
[2021-07-26] MEDS: ZINC SULFATE 220 MG CAPSULE. PO SCH (09:24)
[2021-07-26] MEDS: THIAMINE 100 MG TABLET. PO SCH (09:25)
[2021-07-26] MEDS: ASPIRIN CHEWABLE 81 MG TABLET. PO SCH (09:25)
[2021-07-26] MEDS: METOPROLOL TART IMMED RELEASE 25 MG TABLET. PO SCH ×2 (09:25→20:15)
[2021-07-26 10:57] VITALS: BP 132/83
--- NOTE | 2021-07-26 11:55 | NUR ---
SS following up with discharge planning. SS reviewed pt chart and discussed with pt RN. Pt is currently on room air. COVID19 recovered. Pt on Heparin drip. Cardiology and Vascular following. No planned surgery at this time. Pt now weight bearing with flat or post op shoe. PO diet. PT/OT to work with pt. Self pay. Med Assist following. Pt stating that his first preference is to be able to return to home rather than facility. SS will continue to follow for discharge planning.
--- NOTE | 2021-07-26 13:39 | PDOC ---
DEEPALI BRAR SEVERITY OF ILLNESS COORDINATOR 07/26/21 1339: CARDIO Progress Notes Date and Time Date of Service 07/26/21 Time of Evaluation 1110 Subjective Subjective: No Chest Pain, No shortness of breath, No Palpitations, No Dizziness, Other (feels fatigued today) Vitals Vitals Vital Signs Date Time Temp Pulse Resp B/P (MAP) Pulse Ox O2 Delivery O2 Flow Rate FiO2 07/26/21 10:57 97.5 80 18 132/83 (99) 97 Room Air 97.5 07/25/21 20:52 6.0 Weight Weight [ ] Input and Output Intake and Output Intake and Output 07/26/21 07:00 Intake Total 400 ml Output Total 700 ml Balance -300 ml Intake Oral 400 ml Output Urine Total 700 ml Laboratory Labs Laboratory Tests Test 07/25/21 16:30 07/25/21 17:00 07/25/21 19:47 07/26/21 00:20 Glucose (Fingerstick) 99 mg/dL (70-99) 110 mg/dL (70-99) Heparin Anti-Xa Act, Unfractionated 0.20 IU/mL (0.30-0.70) 0.55 IU/mL (0.30-0.70) Test 07/26/21 06:05 07/26/21 08:12 07/26/21 12:08 Heparin Anti-Xa Act, Unfractionated 0.59 IU/mL (0.30-0.70) Sodium Level 139 mmol/L (136-145) Potassium Level 3.9 mmol/L (3.5-5.1) Chloride Level 104 mmol/L (98-107) Carbon Dioxide Level 28 mmol/L (21-32) Anion Gap 7 (6-14) Blood Urea Nitrogen 9 mg/dL (8-26) Creatinine 0.6 mg/dL (0.7-1.3) Estimated GFR (Cockcroft-Gault) 137.0 BUN/Creatinine Ratio 15 (6-20) Glucose Level 99 mg/dL (70-99) Calcium Level 7.7 mg/dL (8.5-10.1) Total Bilirubin 1.6 mg/dL (0.2-1.0) Aspartate Amino Transf (AST/SGOT) 47 U/L (15-37) Alanine Aminotransferase (ALT/SGPT) 30 U/L (16-63) Alkaline Phosphatase 67 U/L (46-116) Total Protein 5.8 g/dL (6.4-8.2) Albumin 2.0 g/dL (3.4-5.0) Albumin/Globulin Ratio 0.5 (1.0-1.7) Glucose (Fingerstick) 97 mg/dL (70-99) 91 mg/dL (70-99) Physical Exam HEENT: Neck Supple W Full Motion Chest: Symmetric LUNGS: Clear to Auscultation Heart: RRR (SR) Abdomen: Soft N/T Extremities: Other (trace bilateral LE edema. eschar of bilateral toes and heels ) Neurology: alert, oriented, follow commands Assessment Assessment 1. Acute respiratory failure due to acute COVID infection. improved 2. Encephalopathy; CT head without acute findings. improved 3. PAD, subacute thrombotic occlusion of the bilateral popliteal and proximal tibial vessels. s/p bilateral pop/tibial thrombectomy with patch angioplasty 4. Gangrenous changes of bilateral toes and heels; amputation cancelled due to improvement in his forefoot skin on the left. Plans to allow more time for healing 5. Hypertension; controlled 6. Anemia; hgb drift to 5.7. s/p transfusion. hgb now stable 7. RLE hematoma; s/p evacuation Recommendations Statin, BB therapy Continue anticoagulation; will transition to OAC with Xarelto and provide with samples from our office. Ongoing support Consider outpatient ischemia evaluation Justicifation of Admission Dx: Justifications for Admission: Justification of Admission Dx: Yes MALAIKA HOLLIS MD 07/26/21 8079: CARDIO Progress Notes Plan Plan The patient was seen and interviewed as well as examined at the bedside. The chart was reviewed. The case was discussed. Agree with the plan of care. DEEPALI BRAR APRN Jul 26, 2021 13:39 MALAIKA HOLLIS MD Jul 26, 2021 16:29
--- NOTE | 2021-07-26 14:51 | NUR ---
Wound Care Wound Type/Assessment: Pt seen for wound care follow up for multiple wounds, see wound assessments. Pt's toes on bilateral feet are black and necrotic with some purple discoloration in the periwound, bilateral heels with necrotic/eschar covering, skin intact, no drainage noted. Pt's bilateral buttocks peeling and abraded, small open wound noted, redness and moisture with satellite rash on buttocks suggesting yeast, would also benefit from Nystatin powder mixed with calazime cream. Treatment Recommendations/Plan: Continue painting toes and heels with betadine until Vascular surgery next week, weave Aquacel AG strips between toes, Heel medix boots to BLE. Calazime cream with Nystatin powder to buttocks, Nystatin to reddened groin areas. Education provided: to pt re: POC Offloading surface/device: heel medix boots, pt turned to left side at this time. Recommended Referrals/Tests: defer to Vascular Discharge Recommendations for dressings: defer to Vascular who will follow up with patient in outpatient basis for amputation after tissue has fully demarcated
[2021-07-26 15:00] VITALS: BP 134/77
--- NOTE | 2021-07-26 15:37 | PDOC ---
[facility] PROGRESS NOTE Date of Service DOS: DATE: 07/26/21 TIME: 15:37 Chief Complaint Chief Complaint A/P: Confusion and lethargy, AMS Acute COVID-19 infection Acute infectious and metabolic encephalopathy IVORY due to vasomotor nephropathy improved Lactic acidemia Dysphagia Malnutrition Heel erythema on admit, poor nail care and dystrophic nails PAD - confirmed on arterial dopplers, may have COVID toes History of Present Illness History of Present Illness Mr Lambert is a 60-year-old male that presented 06/29/2021 via [facility] with decreased level of consciousness. Most of the history was obtained via EMS and patient's friend Reese [phone], who states that patient has been sick since about June 22 per Reese, he states that they both had cough cold heada patrice sinus type pain. Per Reese's report patient is okay during the day and very alert and orientated and at night he has a decreased alertness. Patient is unable to help with exam when asked questions he does deny any past medical history, surgeries, or any other health conditions. Reese who is his roommate collaborates any information gotten from the patient. Accu-Chek per EMS was 250, room air sat in the room was 88 to 90%. 07/07: not much improved, about the same. cont current. PULM following. we have no clinimix, cont D5 fluid, 07/08: more alert, can try ST again, if able to sit up, still very weak 07/09: much more alert, bedside swallow of water ok, sits upright, much stronger, will try clears if able, ST to follow. toes are worsening, now black, hannah consult podiatry to follow, 07/10: More alert. Working with speech and swallowing today. Off O2. Less confused. Bilateral toe ulcers assessed by podiatry today. 07/11: More alert, eating. Arterial Doppler was left popliteal and severe distal disease bilaterally. Still has a little bit of a cough. Less confused today. 07/12: Eating reasonably well. Tentative plans for angiogram for consideration of limb salvage bilateral feet tomorrow. Discussed with cardiology. He will need significant follow-up care likely eventual amputations. 07/13: N.p.o. for angiogram today with bilateral SFA occlusive disease and left popliteal disease with left posterior tibial artery with some flow otherwise occlusive disease per cardiology. Discussed vascular surgery consultation for consideration of definitive revascularization with likely bilateral transmetatarsal amputations. Still with a little bit of a cough. Shortness of breath 07/14: Seen bedside. Having some pain in his bilateral extremities. Shortness of breath improved still with little bit of cough. Eating again. Amenable to revascularization and likely surgical debridement next week. Increasing thromboprophylaxis 07/15: Seen bedside. Not hypoxic. Cough is improving. He feels he is mental status is improved but he is definitely still mentating slowly. Complains of foot pain. He is contemplating surgical options but is okay with what ever the surgeons to choose for his likely lower extremity bypass tentatively planned for 07/17/202107/16: Bilateral foot pain still with cough but improving. Still is contemplating surgical options. 07/17: Patient off floor for surgery today. Chart evaluated. s/p bilateral pop/tibial thrombectomies with patch angioplasty. s/p RLE hematoma evacuation 07/18: Patient did and examined at bedside. He is postop day 1 from bilateral thrombectomies yesterday. Looks like he may need more surgery prior to discharge. Continue heparin drip. Suspect leukocytosis today secondary to surgery. Continue current. 07/19: Patient evaluated examined at bedside. He was working with physical therapy when seen. Continuing heparin drip. Recheck CBC today. Cardiology following vascular following. Will likely need further surgery prior to discharge. 07/20: Seen at bedside. Having RLE pain and had Hgb drop overnight. Will transfuse. Stop heparin drip for now. Seen by vascular, hematoma evacuation ordered. serial Hgb. 07/21: Patient evaluated examined at bedside. Hemoglobin improved up to 8.1 today. Underwent hematoma evacuation yesterday. Planning for further intervention next week. 07/22: Examine and evaluated at bedside. Resting in bed no major complaints. Hemoglobin stable. Appreciate Cardiology resuming heparin. Further intervention next week. 07/23: Seen at bedside no motor complaints. Hemoglobin still stable. No major clinical changes for today. Intervention this coming week. 07/24: Seen bedside. Has good appetite no cough shortness of breath or chest pain. Left heel with more gangrenous changes left feet. Plan for n.p.o. after midnight 07/25: Seen bedside. N.p.o. for bilateral foot debridement today. K3. Glucose low 100s. Has a friend visiting today. No chest pain or shortness of breath. Pain controlled. 07/26: Changes in the off heparin drip to Xarelto. No significant anticoagulation for 3 months then can start progressive ambulation with physical therapy with postop shoe per vascular surgery recommendations. No shortness of breath or chest pain today just very weak. Vitals/I&O Vitals/I&O: Vital Signs Date Time Temp Pulse Resp B/P (MAP) Pulse Ox O2 Delivery O2 Flow Rate FiO2 07/26/21 15:00 97.6 91 16 134/77 (96) 97 Room Air 97.6 07/25/21 20:52 6.0 I & O 07/25/21 07/25/21 07/26/21 15:00 23:00 07:00 Intake Total 0 ml 300 ml 100 ml Output Total 300 ml 400 ml Balance 0 ml 0 ml -300 ml Physical Exam Physical Exam: lethargic and weak General: Alert, No acute distress Heart: Regular rate Lungs: Clear Abdomen: Soft, No tenderness Extremities: Other (Bilateral leg incisions intact without erythema or signs of infection. 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 No surrounding erythema or fluctuance at this time. The skin on the left forefoot continues to improve. There has been significant improvement since Saturday.) Skin: Other (No further hematoma accumulation) Labs Labs: Laboratory Tests Test 07/25/21 16:30 07/25/21 17:00 07/25/21 19:47 07/26/21 00:20 Glucose (Fingerstick) 99 mg/dL (70-99) 110 mg/dL (70-99) Heparin Anti-Xa Act, Unfractionated 0.20 IU/mL (0.30-0.70) 0.55 IU/mL (0.30-0.70) Test 07/26/21 06:05 07/26/21 08:12 07/26/21 12:08 Heparin Anti-Xa Act, Unfractionated 0.59 IU/mL (0.30-0.70) Sodium Level 139 mmol/L (136-145) Potassium Level 3.9 mmol/L (3.5-5.1) Chloride Level 104 mmol/L (98-107) Carbon Dioxide Level 28 mmol/L (21-32) Anion Gap 7 (6-14) Blood Urea Nitrogen 9 mg/dL (8-26) Creatinine 0.6 mg/dL (0.7-1.3) Estimated GFR (Cockcroft-Gault) 137.0 BUN/Creatinine Ratio 15 (6-20) Glucose Level 99 mg/dL (70-99) Calcium Level 7.7 mg/dL (8.5-10.1) Total Bilirubin 1.6 mg/dL (0.2-1.0) Aspartate Amino Transf (AST/SGOT) 47 U/L (15-37) Alanine Aminotransferase (ALT/SGPT) 30 U/L (16-63) Alkaline Phosphatase 67 U/L (46-116) Total Protein 5.8 g/dL (6.4-8.2) Albumin 2.0 g/dL (3.4-5.0) Albumin/Globulin Ratio 0.5 (1.0-1.7) Glucose (Fingerstick) 97 mg/dL (70-99) 91 mg/dL (70-99) Assessment and Plan Assessmemt and Plan Problems Medical Problems: (1) Dehydration Status: Acute (2) Mental status alteration Status: Acute (3) Pneumonia Status: Acute Comment Review of Relevant I have reviewed the following items amanda (where applicable) has been applied. Medications: Current Medications Medications (Trade) Dose Ordered Sig/Vicente Route PRN Reason Start Time Stop Time Status Last Admin Dose Admin Ascorbic Acid (Vitamin C) 500 mg DAILY PO 07/26/21 09:00 07/26/21 09:24 Thiamine Mononitrate (Vitamin B-1) 100 mg DAILY PO 07/26/21 09:00 07/26/21 09:25 Justifications for Admission Other Justification COVID-19 positive test (U07.1, COVID-19) with Acute Pneumonia (J12.89, Other viral pneumonia) (If respiratory failure or sepsis present, add as separate assessment) SIMONE ARGUELLO MD Jul 26, 2021 15:37
[2021-07-26] MEDS: RIVAROXABAN 10 MG TABLET. PO SCH (16:47)
[2021-07-26 19:00] VITALS: BP 134/81
[2021-07-26] MEDS: oxyCODONE/APAP 5/325 1 TAB TABLET PO PRN (20:16)
[2021-07-26] MEDS: ATORVASTATIN CALCIUM 20 MG TABLET PO SCH (20:16)
[2021-07-26 22:43] VITALS: BP 143/85
[2021-07-27 02:50] VITALS: BP 138/82
[2021-07-27 07:00] VITALS: BP 126/76
[2021-07-27] MEDS: INSULIN LISPRO 300 UNITS/3 ML VIAL. SQ SCH ×3 (08:00→16:47)
[2021-07-27] MEDS: THIAMINE 100 MG TABLET. PO SCH (08:44)
[2021-07-27] MEDS: PANTOPRAZOLE IV PUSH 40 MG VIAL. IVP SCH (08:44)
[2021-07-27] MEDS: ASPIRIN CHEWABLE 81 MG TABLET. PO SCH (08:44)
[2021-07-27] MEDS: METOPROLOL TART IMMED RELEASE 25 MG TABLET. PO SCH ×2 (08:45→20:29)
[2021-07-27] MEDS: ZINC SULFATE 220 MG CAPSULE. PO SCH (08:45)
[2021-07-27] MEDS: ASCORBIC ACID 500 MG TABLET PO SCH (08:45)
--- NOTE | 2021-07-27 10:12 | PDOC ---
DEEPALI BRAR DIRECTOR [employer] INSUR[employer] 07/27/21 1012: CARDIO Progress Notes Date and Time Date of Service 07/27/21 Time of Evaluation 1015 Subjective Subjective: No Chest Pain, No shortness of breath, No Palpitations, No Dizziness Vitals Vitals Vital Signs Date Time Temp Pulse Resp B/P (MAP) Pulse Ox O2 Delivery O2 Flow Rate FiO2 07/27/21 08:45 89 126/76 07/27/21 07:00 97.7 18 98 Room Air 97.7 Weight Weight [ ] Input and Output Intake and Output Intake and Output 07/27/21 06:59 Intake Total 250 ml Output Total 825 ml Balance -575 ml Intake Oral 250 ml Output Urine Total 825 ml Laboratory Labs Laboratory Tests Test 07/26/21 12:08 07/26/21 16:25 07/26/21 19:25 07/27/21 08:03 Glucose (Fingerstick) 91 mg/dL (70-99) 116 mg/dL (70-99) 122 mg/dL (70-99) 97 mg/dL (70-99) Physical Exam HEENT: Neck Supple W Full Motion Chest: Symmetric LUNGS: Clear to Auscultation Heart: RRR (SR) Abdomen: Soft N/T Extremities: Other (trace bilateral LE edema. eschar of bilateral toes and heels ) Neurology: alert, oriented, follow commands Assessment Assessment 1. Acute respiratory failure due to acute COVID infection. improved. now on RA 2. Encephalopathy; CT head without acute findings. improved 3. PAD, subacute thrombotic occlusion of the bilateral popliteal and proximal tibial vessels. s/p bilateral pop/tibial thrombectomy with patch angioplasty 4. 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 Plans to allow more time for healing 5. Hypertension; controlled 6. Anemia requiring transfusion. hgb now stable 7. RLE hematoma; s/p evacuation Recommendations Statin, BB therapy Continue OAC with Xarelto. Will provide with samples Consider outpatient ischemia evaluation Justicifation of Admission Dx: Justifications for Admission: Justification of Admission Dx: Yes MALAIKA HOLLIS MD 07/27/21 1601: CARDIO Progress Notes Plan Plan The patient was seen and interviewed as well as examined at the bedside. The chart was reviewed. The case was discussed. Agree with the plan of care. DEEPALI BRAR APRN Jul 27, 2021 10:12 MALAIKA HOLLIS MD Jul 27, 2021 16:01
[2021-07-27 10:48] VITALS: BP 139/83
--- NOTE | 2021-07-27 12:00 | NUR ---
SS following up with discharge planning. SS reviewed pt chart and discussed with pt RN. Pt is currently on room air. COVID19 recovered. Heparin drip discontinued. Cardiology and Vascular following. No planned surgery at this time. Pt now weight bearing with flat or post op shoe. PO diet. PT/OT to work with pt. Self pay. Med Assist following. Pt stating that his first preference is to be able to return to home rather than facility. SS will continue to follow for discharge planning.
[2021-07-27 15:00] VITALS: BP 119/74
[2021-07-27] MEDS: RIVAROXABAN 10 MG TABLET. PO SCH (17:47)
[2021-07-27 19:29] VITALS: BP 120/72
[2021-07-27] MEDS: ATORVASTATIN CALCIUM 20 MG TABLET PO SCH (20:29)
[2021-07-27] MEDS: oxyCODONE/APAP 5/325 1 TAB TABLET PO PRN (20:29)
--- NOTE | 2021-07-27 20:54 | PDOC ---
[employer] PROGRESS NOTE Date of Service DOS: DATE: 07/27/21 TIME: 20:53 Chief Complaint Chief Complaint A/P: Confusion and lethargy, AMS Acute COVID-19 infection Acute infectious and metabolic encephalopathy IVORY due to vasomotor nephropathy improved Lactic acidemia Dysphagia Malnutrition Heel erythema on admit, poor nail care and dystrophic nails PAD - confirmed on arterial dopplers, may have COVID toes History of Present Illness History of Present Illness Mr Lambert is a 60-year-old male that presented 06/29/2021 via [facility] with decreased level of consciousness. Most of the history was obtained via EMS and patient's friend Reese [phone], who states that patient has been sick since about June 22 per Reese, he states that they both had cough cold heada patrice sinus type pain. Per Reese's report patient is okay during the day and very alert and orientated and at night he has a decreased alertness. Patient is unable to help with exam when asked questions he does deny any past medical history, surgeries, or any other health conditions. Reese who is his roommate collaborates any information gotten from the patient. Accu-Chek per EMS was 250, room air sat in the room was 88 to 90%. 07/07: not much improved, about the same. cont current. PULM following. we have no clinimix, cont D5 fluid, 07/08: more alert, can try ST again, if able to sit up, still very weak 07/09: much more alert, bedside swallow of water ok, sits upright, much stronger, will try clears if able, ST to follow. toes are worsening, now black, hannah consult podiatry to follow, 07/10: More alert. Working with speech and swallowing today. Off O2. Less confused. Bilateral toe ulcers assessed by podiatry today. 07/11: More alert, eating. Arterial Doppler was left popliteal and severe distal disease bilaterally. Still has a little bit of a cough. Less confused today. 07/12: Eating reasonably well. Tentative plans for angiogram for consideration of limb salvage bilateral feet tomorrow. Discussed with cardiology. He will need significant follow-up care likely eventual amputations. 07/13: N.p.o. for angiogram today with bilateral SFA occlusive disease and left popliteal disease with left posterior tibial artery with some flow otherwise occlusive disease per cardiology. Discussed vascular surgery consultation for consideration of definitive revascularization with likely bilateral transmetatarsal amputations. Still with a little bit of a cough. Shortness of breath 07/14: Seen bedside. Having some pain in his bilateral extremities. Shortness of breath improved still with little bit of cough. Eating again. Amenable to revascularization and likely surgical debridement next week. Increasing thromboprophylaxis 07/15: Seen bedside. Not hypoxic. Cough is improving. He feels he is mental status is improved but he is definitely still mentating slowly. Complains of foot pain. He is contemplating surgical options but is okay with what ever the surgeons to choose for his likely lower extremity bypass tentatively planned for 07/17/202107/16: Bilateral foot pain still with cough but improving. Still is contemplating surgical options. 07/17: Patient off floor for surgery today. Chart evaluated. s/p bilateral pop/tibial thrombectomies with patch angioplasty. s/p RLE hematoma evacuation 07/18: Patient did and examined at bedside. He is postop day 1 from bilateral thrombectomies yesterday. Looks like he may need more surgery prior to discharge. Continue heparin drip. Suspect leukocytosis today secondary to surgery. Continue current. 07/19: Patient evaluated examined at bedside. He was working with physical therapy when seen. Continuing heparin drip. Recheck CBC today. Cardiology following vascular following. Will likely need further surgery prior to discharge. 07/20: Seen at bedside. Having RLE pain and had Hgb drop overnight. Will transfuse. Stop heparin drip for now. Seen by vascular, hematoma evacuation ordered. serial Hgb. 07/21: Patient evaluated examined at bedside. Hemoglobin improved up to 8.1 today. Underwent hematoma evacuation yesterday. Planning for further intervention next week. 07/22: Examine and evaluated at bedside. Resting in bed no major complaints. Hemoglobin stable. Appreciate Cardiology resuming heparin. Further intervention next week. 07/23: Seen at bedside no motor complaints. Hemoglobin still stable. No major clinical changes for today. Intervention this coming week. 07/24: Seen bedside. Has good appetite no cough shortness of breath or chest pain. Left heel with more gangrenous changes left feet. Plan for n.p.o. after midnight 07/25: Seen bedside. N.p.o. for bilateral foot debridement today. K3. Glucose low 100s. Has a friend visiting today. No chest pain or shortness of breath. Pain controlled. 07/26: Changes in the off heparin drip to Xarelto. No significant anticoagulation for 3 months then can start progressive ambulation with physical therapy with postop shoe per vascular surgery recommendations. No shortness of breath or chest pain today just very weak. 07/27: Up to chair today, has more bilateral foot pain, now wearing post -op shoes. No SOB or cough. He is asking to get back into bed. Encouraged to continue trying to get on his feet. Vitals/I&O Vitals/I&O: Vital Signs Date Time Temp Pulse Resp B/P (MAP) Pulse Ox O2 Delivery O2 Flow Rate FiO2 07/27/21 20:29 98 Room Air 07/27/21 20:29 106 119/74 07/27/21 19:29 98.2 18 98.2 I & O 07/26/21 07/26/21 07/27/21 15:00 23:00 07:00 Intake Total 100 ml 150 ml 0 ml Output Total 625 ml 200 ml Balance 100 ml -475 ml -200 ml Physical Exam Physical Exam: lethargic and weak General: Alert, No acute distress Heart: Regular rate Lungs: Clear Abdomen: Soft, No tenderness Extremities: Other (Bilateral leg incisions intact without erythema or signs of infection. 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 No surrounding erythema or fluctuance at this time. The skin on the left forefoot continues to improve. There has been significant improvement since Saturday.) Skin: Other (No further hematoma accumulation) Labs Labs: Laboratory Tests Test 07/27/21 08:03 07/27/21 11:25 07/27/21 16:34 07/27/21 20:48 Glucose (Fingerstick) 97 mg/dL (70-99) 101 mg/dL (70-99) 115 mg/dL (70-99) 101 mg/dL (70-99) Assessment and Plan Assessmemt and Plan Problems Medical Problems: (1) Dehydration Status: Acute (2) Mental status alteration Status: Acute (3) Pneumonia Status: Acute Comment Review of Relevant I have reviewed the following items amanda (where applicable) has been applied. Justifications for Admission Other Justification COVID-19 positive test (U07.1, COVID-19) with Acute Pneumonia (J12.89, Other viral pneumonia) (If respiratory failure or sepsis present, add as separate assessment) SIMONE ARGUELLO MD Jul 27, 2021 20:54
[2021-07-27 22:35] VITALS: BP 129/71
[2021-07-28 02:38] VITALS: BP 128/67
[2021-07-28 07:00] VITALS: BP 134/78
[2021-07-28] MEDS: INSULIN LISPRO 300 UNITS/3 ML VIAL. SQ SCH ×3 (08:00→17:00)
[2021-07-28] MEDS: ZINC SULFATE 220 MG CAPSULE. PO SCH (08:39)
[2021-07-28] MEDS: ASPIRIN CHEWABLE 81 MG TABLET. PO SCH (08:39)
[2021-07-28] MEDS: PANTOPRAZOLE 40 MG TABLET.DR. PO SCH (08:39)
[2021-07-28] MEDS: THIAMINE 100 MG TABLET. PO SCH (08:39)
[2021-07-28] MEDS: ASCORBIC ACID 500 MG TABLET PO SCH (08:39)
[2021-07-28] MEDS: METOPROLOL TART IMMED RELEASE 25 MG TABLET. PO SCH ×2 (08:40→20:21)
--- NOTE | 2021-07-28 10:16 | PDOC ---
[facility] PROGRESS NOTE Date of Service DOS: DATE: 07/28/21 TIME: 10:15 Chief Complaint Chief Complaint A/P: Confusion and lethargy, AMS Acute COVID-19 infection Acute infectious and metabolic encephalopathy IVORY due to vasomotor nephropathy improved Lactic acidemia Dysphagia Malnutrition Heel erythema on admit, poor nail care and dystrophic nails PAD - confirmed on arterial dopplers, may have COVID toes History of Present Illness History of Present Illness Mr Lambert is a 60-year-old male that presented 06/29/2021 via [facility] with decreased level of consciousness. Most of the history was obtained via EMS and patient's friend Reese [phone], who states that patient has been sick since about June 22 per Reese, he states that they both had cough cold heada patrice sinus type pain. Per Reese's report patient is okay during the day and very alert and orientated and at night he has a decreased alertness. Patient is unable to help with exam when asked questions he does deny any past medical history, surgeries, or any other health conditions. Reese who is his roommate collaborates any information gotten from the patient. Accu-Chek per EMS was 250, room air sat in the room was 88 to 90%. 07/07: not much improved, about the same. cont current. PULM following. we have no clinimix, cont D5 fluid, 07/08: more alert, can try ST again, if able to sit up, still very weak 07/09: much more alert, bedside swallow of water ok, sits upright, much stronger, will try clears if able, ST to follow. toes are worsening, now black, hannah consult podiatry to follow, 07/10: More alert. Working with speech and swallowing today. Off O2. Less confused. Bilateral toe ulcers assessed by podiatry today. 07/11: More alert, eating. Arterial Doppler was left popliteal and severe distal disease bilaterally. Still has a little bit of a cough. Less confused today. 07/12: Eating reasonably well. Tentative plans for angiogram for consideration of limb salvage bilateral feet tomorrow. Discussed with cardiology. He will need significant follow-up care likely eventual amputations. 07/13: N.p.o. for angiogram today with bilateral SFA occlusive disease and left popliteal disease with left posterior tibial artery with some flow otherwise occlusive disease per cardiology. Discussed vascular surgery consultation for consideration of definitive revascularization with likely bilateral transmetatarsal amputations. Still with a little bit of a cough. Shortness of breath 07/14: Seen bedside. Having some pain in his bilateral extremities. Shortness of breath improved still with little bit of cough. Eating again. Amenable to revascularization and likely surgical debridement next week. Increasing thromboprophylaxis 07/15: Seen bedside. Not hypoxic. Cough is improving. He feels he is mental status is improved but he is definitely still mentating slowly. Complains of foot pain. He is contemplating surgical options but is okay with what ever the surgeons to choose for his likely lower extremity bypass tentatively planned for 07/17/202107/16: Bilateral foot pain still with cough but improving. Still is contemplating surgical options. 07/17: Patient off floor for surgery today. Chart evaluated. s/p bilateral pop/tibial thrombectomies with patch angioplasty. s/p RLE hematoma evacuation 07/18: Patient did and examined at bedside. He is postop day 1 from bilateral thrombectomies yesterday. Looks like he may need more surgery prior to discharge. Continue heparin drip. Suspect leukocytosis today secondary to surgery. Continue current. 07/19: Patient evaluated examined at bedside. He was working with physical therapy when seen. Continuing heparin drip. Recheck CBC today. Cardiology following vascular following. Will likely need further surgery prior to discharge. 07/20: Seen at bedside. Having RLE pain and had Hgb drop overnight. Will transfuse. Stop heparin drip for now. Seen by vascular, hematoma evacuation ordered. serial Hgb. 07/21: Patient evaluated examined at bedside. Hemoglobin improved up to 8.1 today. Underwent hematoma evacuation yesterday. Planning for further intervention next week. 07/22: Examine and evaluated at bedside. Resting in bed no major complaints. Hemoglobin stable. Appreciate Cardiology resuming heparin. Further intervention next week. 07/23: Seen at bedside no motor complaints. Hemoglobin still stable. No major clinical changes for today. Intervention this coming week. 07/24: Seen bedside. Has good appetite no cough shortness of breath or chest pain. Left heel with more gangrenous changes left feet. Plan for n.p.o. after midnight 07/25: Seen bedside. N.p.o. for bilateral foot debridement today. K3. Glucose low 100s. Has a friend visiting today. No chest pain or shortness of breath. Pain controlled. 07/26: Changes in the off heparin drip to Xarelto. No significant anticoagulation for 3 months then can start progressive ambulation with physical therapy with postop shoe per vascular surgery recommendations. No shortness of breath or chest pain today just very weak. 07/27: Up to chair today, has more bilateral foot pain, now wearing post -op shoes. No SOB or cough. He is asking to get back into bed. Encouraged to continue trying to get on his feet. 07/28: In bed. Foot pain is improved from yesterday. No shortness of breath no cough. Still very weak even weak eating today. Vitals/I&O Vitals/I&O: Vital Signs Date Time Temp Pulse Resp B/P (MAP) Pulse Ox O2 Delivery O2 Flow Rate FiO2 07/28/21 08:40 93 128/67 07/28/21 08:00 Room Air 07/28/21 07:00 96.4 16 96 96.4 I & O 07/27/21 07/27/21 07/28/21 15:00 23:00 07:00 Intake Total 50 ml 0 ml 50 ml Output Total 100 ml Balance 50 ml 0 ml -50 ml Physical Exam Physical Exam: lethargic and weak General: Alert, No acute distress Heart: Regular rate Lungs: Clear Abdomen: Soft, No tenderness Extremities: Other (Bilateral leg incisions intact without erythema or signs of infection. 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 No surrounding erythema or fluctuance at this time. The skin on the left forefoot continues to improve. There has been significant improvement since Saturday.) Skin: Other (No further hematoma accumulation) Labs Labs: Laboratory Tests Test 07/27/21 11:25 07/27/21 16:34 07/27/21 20:48 07/28/21 08:01 Glucose (Fingerstick) 101 mg/dL (70-99) 115 mg/dL (70-99) 101 mg/dL (70-99) 98 mg/dL (70-99) Assessment and Plan Assessmemt and Plan Problems Medical Problems: (1) Dehydration Status: Acute (2) Mental status alteration Status: Acute (3) Pneumonia Status: Acute Comment Review of Relevant I have reviewed the following items amanda (where applicable) has been applied. Medications: Current Medications Medications (Trade) Dose Ordered Sig/Vicente Route PRN Reason Start Time Stop Time Status Last Admin Dose Admin Pantoprazole Sodium (Protonix) 40 mg DAILYAC PO 07/28/21 07:30 07/28/21 08:39 Justifications for Admission Other Justification COVID-19 positive test (U07.1, COVID-19) with Acute Pneumonia (J12.89, Other viral pneumonia) (If respiratory failure or sepsis present, add as separate assessment) SIMONE ARGUELLO MD Jul 28, 2021 10:16
[2021-07-28 11:00] VITALS: BP 99/56
--- NOTE | 2021-07-28 12:01 | NUR ---
SS following up with discharge planning. SS reviewed pt chart and discussed with pt RN. Pt is currently on room air. COVID19 recovered. Self pay. Med Assist following. PT/OT continuing to follow. Pt continues to have weakness. SS will continue to follow for discharge planning.
[2021-07-28 15:00] VITALS: BP 132/73
[2021-07-28] MEDS: RIVAROXABAN 10 MG TABLET. PO SCH (17:45)
[2021-07-28 19:18] VITALS: BP 121/74
[2021-07-28] MEDS: ATORVASTATIN CALCIUM 20 MG TABLET PO SCH (20:21)
[2021-07-28 22:42] VITALS: BP 129/75
[2021-07-29 03:15] VITALS: BP 117/64
[2021-07-29] MEDS: PANTOPRAZOLE 40 MG TABLET.DR. PO SCH (06:04)
[2021-07-29 07:00] VITALS: BP 111/72
[2021-07-29] MEDS: INSULIN LISPRO 300 UNITS/3 ML VIAL. SQ SCH ×3 (08:00→17:00)
[2021-07-29] MEDS: THIAMINE 100 MG TABLET. PO SCH (09:42)
[2021-07-29] MEDS: ZINC SULFATE 220 MG CAPSULE. PO SCH (09:42)
[2021-07-29] MEDS: METOPROLOL TART IMMED RELEASE 25 MG TABLET. PO SCH ×2 (09:42→20:49)
[2021-07-29] MEDS: ASPIRIN CHEWABLE 81 MG TABLET. PO SCH (09:42)
[2021-07-29] MEDS: ASCORBIC ACID 500 MG TABLET PO SCH (09:42)
[2021-07-29 10:35] VITALS: BP 110/68
--- NOTE | 2021-07-29 10:58 | PDOC ---
[facility] PROGRESS NOTE Date of Service DOS: DATE: 07/29/21 TIME: 10:57 Chief Complaint Chief Complaint A/P: Confusion and lethargy, AMS Acute COVID-19 infection Acute infectious and metabolic encephalopathy IVORY due to vasomotor nephropathy improved Lactic acidemia Dysphagia Malnutrition Heel erythema on admit, poor nail care and dystrophic nails PAD - confirmed on arterial dopplers, may have COVID toes History of Present Illness History of Present Illness Mr Lambert is a 60-year-old male that presented 06/29/2021 via [facility] with decreased level of consciousness. Most of the history was obtained via EMS and patient's friend Reese [phone], who states that patient has been sick since about June 22 per Reese, he states that they both had cough cold heada patrice sinus type pain. Per Reese's report patient is okay during the day and very alert and orientated and at night he has a decreased alertness. Patient is unable to help with exam when asked questions he does deny any past medical history, surgeries, or any other health conditions. Reese who is his roommate collaborates any information gotten from the patient. Accu-Chek per EMS was 250, room air sat in the room was 88 to 90%. 07/07: not much improved, about the same. cont current. PULM following. we have no clinimix, cont D5 fluid, 07/08: more alert, can try ST again, if able to sit up, still very weak 07/09: much more alert, bedside swallow of water ok, sits upright, much stronger, will try clears if able, ST to follow. toes are worsening, now black, hannah consult podiatry to follow, 07/10: More alert. Working with speech and swallowing today. Off O2. Less confused. Bilateral toe ulcers assessed by podiatry today. 07/11: More alert, eating. Arterial Doppler was left popliteal and severe distal disease bilaterally. Still has a little bit of a cough. Less confused today. 07/12: Eating reasonably well. Tentative plans for angiogram for consideration of limb salvage bilateral feet tomorrow. Discussed with cardiology. He will need significant follow-up care likely eventual amputations. 07/13: N.p.o. for angiogram today with bilateral SFA occlusive disease and left popliteal disease with left posterior tibial artery with some flow otherwise occlusive disease per cardiology. Discussed vascular surgery consultation for consideration of definitive revascularization with likely bilateral transmetatarsal amputations. Still with a little bit of a cough. Shortness of breath 07/14: Seen bedside. Having some pain in his bilateral extremities. Shortness of breath improved still with little bit of cough. Eating again. Amenable to revascularization and likely surgical debridement next week. Increasing thromboprophylaxis 07/15: Seen bedside. Not hypoxic. Cough is improving. He feels he is mental status is improved but he is definitely still mentating slowly. Complains of foot pain. He is contemplating surgical options but is okay with what ever the surgeons to choose for his likely lower extremity bypass tentatively planned for 07/17/202107/16: Bilateral foot pain still with cough but improving. Still is contemplating surgical options. 07/17: Patient off floor for surgery today. Chart evaluated. s/p bilateral pop/tibial thrombectomies with patch angioplasty. s/p RLE hematoma evacuation 07/18: Patient did and examined at bedside. He is postop day 1 from bilateral thrombectomies yesterday. Looks like he may need more surgery prior to discharge. Continue heparin drip. Suspect leukocytosis today secondary to surgery. Continue current. 07/19: Patient evaluated examined at bedside. He was working with physical therapy when seen. Continuing heparin drip. Recheck CBC today. Cardiology following vascular following. Will likely need further surgery prior to discharge. 07/20: Seen at bedside. Having RLE pain and had Hgb drop overnight. Will transfuse. Stop heparin drip for now. Seen by vascular, hematoma evacuation ordered. serial Hgb. 07/21: Patient evaluated examined at bedside. Hemoglobin improved up to 8.1 today. Underwent hematoma evacuation yesterday. Planning for further intervention next week. 07/22: Examine and evaluated at bedside. Resting in bed no major complaints. Hemoglobin stable. Appreciate Cardiology resuming heparin. Further intervention next week. 07/23: Seen at bedside no motor complaints. Hemoglobin still stable. No major clinical changes for today. Intervention this coming week. 07/24: Seen bedside. Has good appetite no cough shortness of breath or chest pain. Left heel with more gangrenous changes left feet. Plan for n.p.o. after midnight 07/25: Seen bedside. N.p.o. for bilateral foot debridement today. K3. Glucose low 100s. Has a friend visiting today. No chest pain or shortness of breath. Pain controlled. 2: Changes in the off heparin drip to Xarelto. No significant anticoagulation for 3 months then can start progressive ambulation with physical therapy with postop shoe per vascular surgery recommendations. No shortness of breath or chest pain today just very weak. 07/27: Up to chair today, has more bilateral foot pain, now wearing post -op shoes. No SOB or cough. He is asking to get back into bed. Encouraged to continue trying to get on his feet. 07/28: In bed. Foot pain is improved from yesterday. No shortness of breath no cough. Still very weak even weak eating today. 07/29: Seen in bed. No foot pain today. No shortness of breath or cough. Still weak eating well. Not out of bed today. Glucose low 100s Vitals/I&O Vitals/I&O: Vital Signs Date Time Temp Pulse Resp B/P (MAP) Pulse Ox O2 Delivery O2 Flow Rate FiO2 07/29/21 10:35 97.7 84 18 110/68 (82) 96 Room Air 97.7 I & O 0 07/28/21 07/28/21 07/29/21 15:00 23:00 07:00 Intake Total 520 ml 200 ml 500 ml Output Total 175 ml 175 ml Balance 520 ml 25 ml 325 ml Physical Exam Physical Exam: lethargic and weak General: Alert, No acute distress Heart: Regular rate Lungs: Clear Abdomen: Soft, No tenderness Extremities: Other (Bilateral leg incisions intact without erythema or signs of infection. 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 No surrounding erythema or fluctuance at this time. The skin on the left forefoot continues to improve. There has been significant improvement since Saturday.) Skin: Other (No further hematoma accumulation) Labs Labs: Laboratory Tests Test 07/28/21 10:59 07/28/21 16:58 07/28/21 20:34 07/29/21 07:59 Glucose (Fingerstick) 141 mg/dL (70-99) 135 mg/dL (70-99) 130 mg/dL (70-99) 122 mg/dL (70-99) Assessment and Plan Assessmemt and Plan Problems Medical Problems: (1) Dehydration Status: Acute (2) Mental status alteration Status: Acute (3) Pneumonia Status: Acute Comment Review of Relevant I have reviewed the following items amanda (where applicable) has been applied. Justifications for Admission Other Justification COVID-19 positive test (U07.1, COVID-19) with Acute Pneumonia (J12.89, Other viral pneumonia) (If respiratory failure or sepsis present, add as separate assessment) SIMONE ARGUELLO MD Jul 29, 2021 10:58
[2021-07-29 15:03] VITALS: BP 127/77
--- NOTE | 2021-07-29 16:23 | PDOC ---
PROGRESS NOTES Date of Service DATE: 07/29/21 TIME: 16:21 Subjective Subjective Patient seen and evaluated. Objective Objective Vital Signs Date Time Temp Pulse Resp B/P (MAP) Pulse Ox O2 Delivery O2 Flow Rate FiO2 07/29/21 15:03 98.1 77 16 127/77 (94) 94 Room Air 98.1 07/25/21 20:52 6.0 Intake and Output 07/29/21 07:00 Intake Total 1220 ml Output Total 350 ml Balance 870 ml Intake Oral 1220 ml Output Urine Total 350 ml # Voids 1 Physical Exam Physical Exam Visual examination as per COVID status. Assessment Assessment Problems Medical Problems: (1) Dehydration Status: Acute (2) Mental status alteration Status: Acute (3) Pneumonia Status: Acute Acute respiratory failure due to acute COVID infection. Improving. Continue pr esent medications. Encephalopathy; CT head without acute findings. improved PAD, subacute thrombotic occlusion of the bilateral popliteal and proximal tibial vessels. s/p bilateral pop/tibial thrombectomy with patch angioplasty. Continuing present medications including anticoagulation. 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 Plans to allow more time for healing Hypertension; controlled Anemia requiring transfusion. Will recheck morning lab. RLE hematoma; s/p evacuation Comment Review of Relevant I have reviewed the following items amanda (where applicable) has been applied. Labs Laboratory Tests Test 07/27/21 16:34 07/27/21 20:48 07/28/21 08:01 07/28/21 10:59 Glucose (Fingerstick) 115 mg/dL (70-99) 101 mg/dL (70-99) 98 mg/dL (70-99) 141 mg/dL (70-99) Test 07/28/21 16:58 07/28/21 20:34 07/29/21 07:59 07/29/21 11:38 Glucose (Fingerstick) 135 mg/dL (70-99) 130 mg/dL (70-99) 122 mg/dL (70-99) 119 mg/dL (70-99) Laboratory Tests Test 07/28/21 16:58 07/28/21 20:34 07/29/21 07:59 07/29/21 11:38 Glucose (Fingerstick) 135 mg/dL (70-99) 130 mg/dL (70-99) 122 mg/dL (70-99) 119 mg/dL (70-99) Medications Current Medications Sodium Chloride 1,000 ml @ 999 mls/hr 1X ONCE IV Last administered on 06/29/21at 19:10; Start 06/29/21 at 19:00; Stop 06/29/21 at 20:00; Status DC Dexamethasone Sodium Phosphate (Decadron) 10 mg 1X ONCE IV Last administered on 06/29/21at 20:30; Start 06/29/21 at 20:00; Stop 06/29/21 at 20:05; Status DC Sodium Chloride 1,000 ml @ 999 mls/hr 1X ONCE IV Last administered on 06/29/21at 20:30; Start 06/29/21 at 20:00; Stop 06/29/21 at 21:00; Status DC Ceftriaxone Sodium (Rocephin) 1 gm 1X ONCE IVP Last administered on 06/29/21at 20:29; Start 06/29/21 at 20:00; Stop 06/29/21 at 20:05; Status DC Azithromycin 250 ml @ 250 mls/hr 1X ONCE IV Last administered on 06/29/21at 20:00; Start 06/29/21 at 20:00; Stop 06/29/21 at 20:59; Status DC Sodium Chloride 1,000 ml @ 75 mls/hr [id number] IV Last administered on 06/30/21at 12:32; Start 06/29/21 at 20:45; Stop 06/30/21 at 20:44; Status DC Info (FLU VACCINE SCREEN per RX) 0.5 each 1X ONCE MC ; Start 07/01/21 at 09:00; Stop 07/01/21 at 09:01; Status DC Ascorbic Acid (Vitamin C) 3,000 mg TID PO Last administered on 07/25/21at 12:10; Start 06/30/21 at 21:00; Stop 07/25/21 at 15:43; Status DC Dexamethasone Sodium Phosphate (Decadron) 6 mg DAILY IVP Last administered on 07/10/21at 08:57; Start 06/30/21 at 16:00; Stop 07/10/21 at 12:29; Status DC Thiamine Mononitrate (Vitamin B-1) 300 mg DAILY PO Last administered on 07/25/21at 12:10; Start 06/30/21 at 16:00; Stop 07/25/21 at 15:43; Status DC Zinc Sulfate (Orazinc) 220 mg DAILY PO Last administered on 07/29/21at 09:42; Start 06/30/21 at 16:00 Sennosides (Senna) 17.2 mg PRN BID PRN PO CONSTIPATION; Start 06/30/21 at 15:15 Docusate Sodium (Colace) 100 mg PRN DAILY PRN PO HARD STOOLS; Start 06/30/21 at 15:15 Ondansetron HCl (Zofran) 4 mg PRN Q6HRS PRN IVP NAUSEA/VOMITING, 1st CHOICE; Start 06/30/21 at 15:15; Stop 07/05/21 at 14:02; Status DC Dextrose (Dextrose 50%-Water Syringe) 12.5 gm PRN Q15MIN PRN IV SEE COMMENTS; Start 06/30/21 at 15:15; Stop 07/05/21 at 12:45; Status DC Acetaminophen (Tylenol) 650 mg PRN Q4HRS PRN PO TEMP OVER 100.4F OR MILD PAIN; Start 06/30/21 at 15:15 Lorazepam (Ativan) 0.5 mg PRN Q6HRS PRN PO ANXIETY / AGITATION; Start 06/30/21 at 15:15; Stop 07/05/21 at 14:02; Status DC Lorazepam (Ativan Inj) 0.25 mg PRN Q4HRS PRN IV ANXIETY / AGITATION; Start 06/30/21 at 15:15; Stop 07/05/21 at 14:02; Status DC Enoxaparin Sodium (Lovenox 40mg Syringe) 40 mg Q24H SQ Last administered on 07/13/21at 17:20; Start 06/30/21 at 16:00; Stop 07/14/21 at 12:21; Status DC Prochlorperazine Edisylate (Compazine) 10 mg PRN Q6HRS PRN IV NAUSEA/VOMITING, 2nd CHOICE; Start 06/30/21 at 15:15; Stop 07/05/21 at 14:02; Status DC Diphenhydramine HCl (Benadryl) 25 mg PRN Q6HRS PRN IVP ITCHING; Start 06/30/21 at 15:15; Stop 07/05/21 at 14:02; Status DC Diphenhydramine HCl (Benadryl) 25 mg PRN Q6HRS PRN PO ITCHING; Start 06/30/21 at 15:15; Stop 07/05/21 at 14:02; Status DC Diphenhydramine HCl (Benadryl) 25 mg PRN QHS PRN PO INSOMNIA, 1ST CHOICE; Start 06/30/21 at 15:15; Stop 07/05/21 at 14:02; Status DC Zolpidem Tartrate (Ambien) 2.5 mg PRN QHS PRN PO INSOMNIA, 2ND CHOICE; Start 06/30/21 at 15:15; Stop 07/05/21 at 14:02; Status DC Pantoprazole Sodium (PROTONIX VIAL for IV PUSH) 40 mg DAILYAC IVP Last administered on 07/27/21at 08:44; Start 06/30/21 at 16:00; Stop 07/27/21 at 16:51; Status DC Amino Acids/ Electrolytes/ Dextrose 1,000 ml @ 80 mls/hr [id number] IV ; Start 07/04/21 at 09:15; Status UNV Dextrose/Lactated Ringer's 1,000 ml @ 80 mls/hr [id number] IV Last administered on 07/12/21at 06:27; Start 07/04/21 at 09:30; Stop 07/12/21 at 10:58; Status DC Insulin Human Lispro (HumaLOG) 0-5 UNITS TIDWMEALS SQ ; Start 07/05/21 at 17:00 Dextrose (Dextrose 50%-Water Syringe) 12.5 gm PRN Q15MIN PRN IV SEE COMMENTS Last administered on 07/09/21at 23:48; Start 07/05/21 at 12:45 Aspirin (Ecotrin) 81 mg DAILYWBKFT PO Last administered on 07/20/21at 08:52; Start 07/11/21 at 15:00; Stop 07/20/21 at 14:10; Status DC Atorvastatin Calcium (Lipitor) 20 mg QHS PO Last administered on 07/28/21at 20:21; Start 07/11/21 at 21:00 Metoprolol Tartrate (Lopressor) 25 mg BID PO Last administered on 07/29/21at 09:42; Start 07/12/21 at 12:15 Heparin Sodium/ Sodium Chloride (HEPARIN for ARTERIAL LINE FLUSH) 1,000 unit 1X ONCE IART Last administered on 07/13/21at 13:00; Start 07/13/21 at 13:00; Stop 07/13/21 at 13:01; Status DC Heparin Sodium/ Sodium Chloride (HEPARIN for ARTERIAL LINE FLUSH) 1,000 unit 1X ONCE IART Last administered on 07/13/21at 13:00; Start 07/13/21 at 13:00; Stop 07/13/21 at 13:01; Status DC Midazolam HCl (Versed) 2 mg 1X ONCE IV Last administered on 07/13/21at 13:20; Start 07/13/21 at 13:00; Stop 07/13/21 at 13:01; Status DC Fentanyl Citrate (Fentanyl 2ml Vial) 100 mcg 1X ONCE IV Last administered on 07/13/21at 13:20; Start 07/13/21 at 13:00; Stop 07/13/21 at 13:01; Status DC Iodixanol (Visipaque 320) 100 ml 1X ONCE IART Last administered on 07/13/21at 13:50; Start 07/13/21 at 13:00; Stop 07/13/21 at 13:01; Status DC Lidocaine HCl (Lidocaine 1% 20ml Vial) 20 ml 1X ONCE INJ Last administered on 07/13/21at 13:22; Start 07/13/21 at 13:00; Stop 07/13/21 at 13:01; Status DC Nitroglycerin (Nitroglycerin) 200 mcg 1X ONCE IART Last administered on 07/13/21at 13:23; Start 07/13/21 at 13:30; Stop 07/13/21 at 13:35; Status DC Verapamil HCl (Verapamil) 2.5 mg 1X ONCE IART Last administered on 07/13/21at 13:23; Start 07/13/21 at 13:30; Stop 07/13/21 at 13:35; Status DC Heparin Sodium (Porcine) (Heparin Sodium) 2,500 unit 1X ONCE IART Last administered on 07/13/21at 13:30; Start 07/13/21 at 13:30; Stop 07/13/21 at 13:35; Status DC Potassium Chloride (Klor-Con) 20 meq 1X ONCE PO Last administered on 07/14/21at 11:48; Start 07/14/21 at 11:00; Stop 07/14/21 at 11:01; Status DC Enoxaparin Sodium (Lovenox 80mg Syringe) 80 mg Q12HR SQ Last administered on 07/16/21at 21:01; Start 07/14/21 at 13:00; Stop 07/17/21 at 12:12; Status DC Fentanyl Citrate (Fentanyl 2ml Vial) 25 mcg PRN Q5MIN PRN IVP MILD PAIN 1-3; Start 07/17/21 at 06:00; Stop 07/18/21 at 06:00; Status DC Fentanyl Citrate (Fentanyl 2ml Vial) 50 mcg PRN Q5MIN PRN IVP MODERATE PAIN 4- 6; Start 07/17/21 at 06:00; Stop 07/18/21 at 06:00; Status DC Morphine Sulfate (Morphine Sulfate) 1 mg PRN Q10MIN PRN IVP SEVERE PAIN 7-10; Start 07/17/21 at 06:00; Stop 07/18/21 at 06:00; Status DC Ringer's Solution 1,000 ml @ 30 mls/hr Q24H IV Last administered on 07/17/21at 07:50; Start 07/17/21 at 06:00; Stop 07/17/21 at 17:59; Status DC Hydromorphone HCl (Dilaudid) 0.5 mg PRN Q10MIN PRN IVP SEVERE PAIN 7-10, 2nd CHOICE; Start 07/17/21 at 06:00; Stop 07/18/21 at 06:00; Status DC Prochlorperazine Edisylate (Compazine) 5 mg PACU PRN PRN IVP NAUSEA, MRX1; Start 07/17/21 at 06:00; Stop 07/18/21 at 06:00; Status DC Cefazolin Sodium 1 gm/Sodium Chloride 500 ml @ 500 mls/hr 1X ONCE IRR Last administered on 07/17/21at 08:57; Start 07/17/21 at 08:00; Stop 07/17/21 at 08:59; Status DC Heparin Sodium (Porcine) 5000 unit/Sodium Chloride 505 ml @ 505 mls/hr 1X ONCE IRR Last administered on 07/17/21at 08:57; Start 07/17/21 at 08:00; Stop 07/17/21 at 08:59; Status DC Sodium Chloride 1,000 ml @ 100 mls/hr Q10H IV Last administered on 07/21/21at 10:38; Start 07/17/21 at 12:00; Stop 07/21/21 at 15:21; Status DC Morphine Sulfate (Morphine Sulfate) 2 mg PRN Q2HR PRN IVP PAIN Last administered on 07/20/21at 09:38; Start 07/17/21 at 08:15; Stop 07/28/21 at 10:15; Status DC Oxycodone/ Acetaminophen (Percocet 5/325) 1 tab PRN Q4HRS PRN PO MODERATE PAIN Last administered on 07/27/21at 20:29; Start 07/17/21 at 08:15 Sugammadex Sodium (Bridion) 200 mg 1X ONCE IVP ; Start 07/17/21 at 09:30; Stop 07/17/21 at 09:31; Status DC Cefazolin Sodium 1 gm/Sodium Chloride 500 ml @ 500 mls/hr 1X ONCE IRR Last administered on 07/17/21at 10:30; Start 07/17/21 at 10:30; Stop 07/17/21 at 11:29; Status DC Cellulose (Surgicel Fibrillar 1x2) 1 each STK-MED ONCE TP Last administered on 07/17/21at 11:23; Start 07/17/21 at 11:23; Stop 07/17/21 at 11:26; Status DC Heparin Sodium/ Dextrose 250 ml @ 10 mls/hr q10hr IV ; Start 07/17/21 at 12:15; Stop 07/17/21 at 12:15; Status DC Cefazolin Sodium/ Dextrose 50 ml @ 100 mls/hr Q8HRS IV Last administered on 07/17/21at 19:52; Start 07/17/21 at 14:00; Stop 07/17/21 at 22:29; Status DC Heparin Sodium/ Dextrose 250 ml @ 10 mls/hr q10hr IV ; Start 07/17/21 at 12:15; Stop 07/17/21 at 13:04; Status DC Heparin Sodium/ Dextrose 250 ml @ 10 mls/hr CONT PRN PRN IV SEE PROTOCOL Last administered on 07/17/21at 13:00; Start 07/17/21 at 13:15; Stop 07/18/21 at 11:06; Status DC Heparin Sodium/ Dextrose 250 ml @ 13.264 mls/ hr CONT PRN IV PER PROTOCOL Last administered on 07/19/21at 21:46; Start 07/18/21 at 11:15; Stop 07/20/21 at 09:38; Status DC Heparin Sodium (Porcine) (Heparin Sodium) 2,500 unit PRN Q6HRS PRN IV FOR UFH LEVEL LESS THAN 0.2; Start 07/18/21 at 11:15; Stop 07/20/21 at 13:11; Status DC Heparin Sodium (Porcine) (Heparin Sodium) 1,250 unit PRN Q6HRS PRN IV FOR UFH LEVEL 0.2 - 0.29 Last administered on 07/18/21at 20:10; Start 07/18/21 at 11:15; Stop 07/20/21 at 13:11; Status DC Glycopyrrolate (Glycopyrrolate) 1 mg STK-MED ONCE .ROUTE ; Start 07/17/21 at 12:00; Stop 07/18/21 at 12:44; Status DC Heparin Sodium/ Sodium Chloride 500 ml @ As Directed STK-MED ONCE .ROUTE ; Start 07/13/21 at 08:02; Stop 07/18/21 at 12:49; Status DC Iodixanol (Visipaque 320) 100 ml STK-MED ONCE .ROUTE ; Start 07/13/21 at 08:02; Stop 07/18/21 at 12:49; Status DC Heparin Sodium/ Sodium Chloride 1,000 ml @ As Directed STK-MED ONCE .ROUTE ; Start 07/13/21 at 12:45; Stop 07/18/21 at 12:53; Status DC Midazolam HCl (Versed) 2 mg STK-MED ONCE .ROUTE ; Start 07/13/21 at 12:46; Stop 07/18/21 at 12:53; Status DC Fentanyl Citrate (Fentanyl 2ml Vial) 100 mcg STK-MED ONCE .ROUTE ; Start 07/13/21 at 12:46; Stop 07/18/21 at 12:53; Status DC Heparin Sodium (Porcine) (Heparin Sodium) 10,000 unit STK-MED ONCE .ROUTE ; Start 07/13/21 at 12:52; Stop 07/18/21 at 12:53; Status DC Verapamil HCl (Verapamil) 5 mg STK-MED ONCE .ROUTE ; Start 07/13/21 at 13:12; Stop 07/18/21 at 12:53; Status DC Cellulose (Surgicel Fibrillar 1x2) 1 each STK-MED ONCE .ROUTE ; Start 07/17/21 at 07:08; Stop 07/18/21 at 13:29; Status DC Iohexol (Omnipaque 300 Mg/ml) 50 ml STK-MED ONCE .ROUTE ; Start 07/17/21 at 07:08; Stop 07/18/21 at 13:29; Status DC Protamine Sulfate (Protamine) 50 mg STK-MED ONCE IV ; Start 07/17/21 at 07:08; Stop 07/18/21 at 13:29; Status DC Phenylephrine HCl (Jesus-Synephrine Inj) 10 mg STK-MED ONCE .ROUTE ; Start 07/17/21 at 05:34; Stop 07/18/21 at 13:30; Status DC Ephedrine Sulfate (ePHEDrine PF IN SALINE SYRINGE) 50 mg STK-MED ONCE IV ; Start 07/17/21 at 05:34; Stop 07/18/21 at 13:30; Status DC Succinylcholine Chloride (Anectine) 200 mg STK-MED ONCE .ROUTE ; Start 07/17/21 at 05:35; Stop 07/18/21 at 13:30; Status DC Epinephrine HCl (Adrenalin) 1 mg STK-MED ONCE .ROUTE ; Start 07/17/21 at 05:35; Stop 07/18/21 at 13:30; Status DC Protamine Sulfate (Protamine) 50 mg STK-MED ONCE IV ; Start 07/17/21 at 07:35; Stop 07/18/21 at 13:31; Status DC Heparin Sodium (Porcine) (Heparin Sodium) 10,000 unit STK-MED ONCE .ROUTE ; Start 07/17/21 at 07:35; Stop 07/18/21 at 13:31; Status DC Dexamethasone Sodium Phosphate (Decadron) 4 mg STK-MED ONCE .ROUTE ; Start 07/17/21 at 07:35; Stop 07/18/21 at 13:31; Status DC Ondansetron HCl (Zofran) 4 mg STK-MED ONCE .ROUTE ; Start 07/17/21 at 07:35; Stop 07/18/21 at 13:31; Status DC Epinephrine HCl (EPINEPHrine SYRINGE) 1 mg STK-MED ONCE .ROUTE ; Start 07/17/21 at 07:35; Stop 07/18/21 at 13:31; Status DC Midazolam HCl (Versed) 2 mg STK-MED ONCE .ROUTE ; Start 07/17/21 at 07:37; Stop 07/18/21 at 13:31; Status DC Fentanyl Citrate (Fentanyl 5ml Vial) 250 mcg STK-MED ONCE .ROUTE ; Start 07/17/21 at 07:37; Stop 07/18/21 at 13:31; Status DC Cefazolin Sodium/ Dextrose 50 ml @ As Directed STK-MED ONCE IV ; Start 07/17/21 at 08:51; Stop 07/18/21 at 13:35; Status DC Hydromorphone HCl (Dilaudid) 2 mg STK-MED ONCE .ROUTE ; Start 07/17/21 at 11:54; Stop 07/18/21 at 13:36; Status DC Fentanyl Citrate (Fentanyl 2ml Vial) 100 mcg STK-MED ONCE .ROUTE ; Start 07/17/21 at 11:54; Stop 07/18/21 at 13:36; Status DC Morphine Sulfate (Morphine Sulfate) 2 mg STK-MED ONCE .ROUTE ; Start 07/17/21 at 11:55; Stop 07/18/21 at 13:36; Status DC Cefazolin Sodium/ Dextrose 50 ml @ 100 mls/hr 1X PREOP PRN IV PRIOR TO PROCEDURE Last administered on 07/20/21at 15:45; Start 07/20/21 at 14:00; Stop 07/21/21 at 13:59; Status DC Cefazolin Sodium/ Dextrose 50 ml @ As Directed STK-MED ONCE IV ; Start 07/20/21 at 13:50; Stop 07/20/21 at 13:50; Status DC Propofol (Diprivan) 200 mg STK-MED ONCE IV ; Start 07/20/21 at 14:06; Stop 07/20/21 at 14:07; Status DC Lidocaine HCl (Xylocaine-Mpf 1% 5ml Vial) 5 ml STK-MED ONCE .ROUTE ; Start 07/20/21 at 14:07; Stop 07/20/21 at 14:07; Status DC Fentanyl Citrate (Fentanyl 2ml Vial) 100 mcg STK-MED ONCE .ROUTE ; Start 07/20/21 at 14:07; Stop 07/20/21 at 14:07; Status DC Cellulose (Surgicel Fibrillar 1x2) 1 each STK-MED ONCE .ROUTE Last administered on 07/20/21at 16:07; Start 07/20/21 at 16:04; Stop 07/20/21 at 16:05; Status DC Fentanyl Citrate (Fentanyl 2ml Vial) 25 mcg PRN Q5MIN PRN IVP MILD PAIN 1-3; Start 07/20/21 at 16:15; Stop 07/21/21 at 02:00; Status DC Fentanyl Citrate (Fentanyl 2ml Vial) 50 mcg PRN Q5MIN PRN IVP MODERATE PAIN 4- 6; Start 07/20/21 at 16:15; Stop 07/21/21 at 02:00; Status DC Morphine Sulfate (Morphine Sulfate) 1 mg PRN Q10MIN PRN IVP SEVERE PAIN 7-10; Start 07/20/21 at 16:15; Stop 07/21/21 at 02:00; Status DC Hydromorphone HCl (Dilaudid) 0.5 mg PRN Q10MIN PRN IVP SEVERE PAIN 7-10, 2nd CHOICE; Start 07/20/21 at 16:15; Stop 07/21/21 at 02:00; Status DC Prochlorperazine Edisylate (Compazine) 5 mg PACU PRN PRN IVP NAUSEA, MRX1; Start 07/20/21 at 16:15; Stop 07/25/21 at 07:58; Status DC Insulin Human Lispro (HumaLOG VIAL for OP,RR ONLY) 0-10 units PRN Q1HR PRN SQ PER PROTOCOL; Start 07/20/21 at 16:15; Stop 07/21/21 at 16:14; Status DC Cefazolin Sodium/ Dextrose 50 ml @ 100 mls/hr Q8HRS IV Last administered on 07/21/21at 05:21; Start 07/20/21 at 22:00; Stop 07/21/21 at 06:29; Status DC Oxycodone/ Acetaminophen (Percocet 5/325) 2 tab PRN Q4HRS PRN PO SEVERE PAIN; Start 07/20/21 at 16:45 Hydromorphone HCl (Dilaudid) 2 mg STK-MED ONCE .ROUTE ; Start 07/20/21 at 16:50; Stop 07/20/21 at 16:50; Status DC Aspirin (Aspirin Chewable) 81 mg DAILYWBKFT PO Last administered on 07/29/21at 09:42; Start 07/23/21 at 08:00 Heparin Sodium/ Dextrose 250 ml @ 8.789 mls/ hr CONT PRN IV PER PROTOCOL Last administered on 07/25/21at 20:23; Start 07/22/21 at 16:30; Stop 07/26/21 at 13:44; Status DC Heparin Sodium (Porcine) (Heparin Sodium) 2,000 unit PRN Q6HRS PRN IV FOR UFH LEVEL LESS THAN 0.2 Last administered on 07/23/21at 01:17; Start 07/22/21 at 16:30; Stop 07/26/21 at 13:44; Status DC Cefazolin Sodium/ Dextrose 50 ml @ 100 mls/hr 1X PREOP PRN IV PRIOR TO PROCEDURE; Start 07/25/21 at 06:00; Stop 07/25/21 at 18:00; Status DC Cefazolin Sodium 1 gm/Sodium Chloride 500 ml @ 500 mls/hr 1X ONCE IRR ; Start 07/25/21 at 06:00; Stop 07/25/21 at 07:00; Status DC Fentanyl Citrate (Fentanyl 2ml Vial) 25 mcg PRN Q5MIN PRN IVP MILD PAIN 1-3; Start 07/25/21 at 06:00; Stop 07/25/21 at 20:00; Status DC Fentanyl Citrate (Fentanyl 2ml Vial) 50 mcg PRN Q5MIN PRN IVP MODERATE PAIN 4- 6; Start 07/25/21 at 06:00; Stop 07/25/21 at 20:00; Status DC Morphine Sulfate (Morphine Sulfate) 1 mg PRN Q10MIN PRN IVP SEVERE PAIN 7-10; Start 07/25/21 at 06:00; Stop 07/25/21 at 20:00; Status DC Ringer's Solution 1,000 ml @ 30 mls/hr Q24H IV Last administered on 07/25/21at 07:58; Start 07/25/21 at 06:00; Stop 07/25/21 at 17:59; Status DC Hydromorphone HCl (Dilaudid) 0.5 mg PRN Q10MIN PRN IVP SEVERE PAIN 7-10, 2nd C HOICE; Start 07/25/21 at 06:00; Stop 07/25/21 at 20:00; Status DC Prochlorperazine Edisylate (Compazine) 5 mg PACU PRN PRN IVP NAUSEA, MRX1; Start 07/25/21 at 06:00; Stop 07/25/21 at 20:00; Status DC Propofol (Diprivan) 200 mg STK-MED ONCE IV ; Start 07/25/21 at 06:52; Stop 07/25/21 at 06:53; Status DC Fentanyl Citrate (Fentanyl 2ml Vial) 100 mcg STK-MED ONCE .ROUTE ; Start 07/25/21 at 06:53; Stop 07/25/21 at 06:53; Status DC Rocuronium Craig (Zemuron) 50 mg STK-MED ONCE .ROUTE ; Start 07/25/21 at 06:59; Stop 07/25/21 at 06:59; Status DC Ondansetron HCl (Zofran) 4 mg STK-MED ONCE .ROUTE ; Start 07/25/21 at 07:08; Stop 07/25/21 at 07:08; Status DC Dexamethasone Sodium Phosphate (Decadron) 4 mg STK-MED ONCE .ROUTE ; Start 07/25/21 at 07:08; Stop 07/25/21 at 07:08; Status DC Potassium Chloride/Water 100 ml @ 100 mls/hr Q1H IV Last administered on 07/25/21at 13:25; Start 07/25/21 at 08:00; Stop 07/25/21 at 13:59; Status DC Lidocaine HCl (Xylocaine 1% Pf 30ml Vial) 30 ml STK-MED ONCE .ROUTE ; Start 07/25/21 at 07:55; Stop 07/25/21 at 07:56; Status DC Ascorbic Acid (Vitamin C) 500 mg DAILY PO Last administered on 07/29/21at 09:42; Start 07/26/21 at 09:00 Thiamine Mononitrate (Vitamin B-1) 100 mg DAILY PO Last administered on 07/29/21at 09:42; Start 07/26/21 at 09:00 Rivaroxaban (Xarelto) 20 mg DAILYWSUP PO Last administered on 07/28/21at 17:45; Start 07/26/21 at 17:00 Pantoprazole Sodium (Protonix) 40 mg DAILYAC PO Last administered on 07/29/21at 06:04; Start 07/28/21 at 07:30 Active Scripts Active No Active Prescriptions or Reported Medications Vitals/I & O Vital Sign - Last 24 Hours 07/28/21 07/28/21 07/28/21 07/28/21 19:18 20:04 20:21 22:42 Temp 98.9 98.5 98.9 98.5 Pulse 109 109 96 Resp 16 16 B/P (MAP) 121/74 (90) 121/74 129/75 (93) Pulse Ox 94 94 O2 Delivery Room Air Room Air Room Air 07/29/21 07/29/21 07/29/21 07/29/21 03:15 07:00 08:00 09:42 Temp 98.0 97.4 98.0 97.4 Pulse 77 80 80 Resp 16 16 B/P (MAP) 117/64 (81) 111/72 (85) 111/72 Pulse Ox 96 96 O2 Delivery Room Air Room Air Room Air 07/29/21 07/29/21 10:35 15:03 Temp 97.7 98.1 97.7 98.1 Pulse 84 77 Resp 18 16 B/P (MAP) 110/68 (82) 127/77 (94) Pulse Ox 96 94 O2 Delivery Room Air Room Air Intake and Output 07/28/21 07/28/21 07/29/21 15:00 23:00 07:00 Intake Total 520 ml 200 ml 500 ml Output Total 175 ml 175 ml Balance 520 ml 25 ml 325 ml Justifications for Admission Other Justification COVID-19 positive test (U07.1, COVID-19) with Acute Pneumonia (J12.89, Other viral pneumonia) (If respiratory failure or sepsis present, add as separate assessment) SUSAN HENSLEY MD Jul 29, 2021 16:23
[2021-07-29] MEDS: RIVAROXABAN 10 MG TABLET. PO SCH (18:31)
[2021-07-29 19:40] VITALS: BP 132/80
[2021-07-29] MEDS: ATORVASTATIN CALCIUM 20 MG TABLET PO SCH (20:48)
[2021-07-29 22:45] VITALS: BP 131/76
[2021-07-30 03:10] VITALS: BP 122/74
[2021-07-30 04:40] LABS: BASO # 0.1 x10^3/uL (0.0-0.2); BASO % 1 % (0-3); EOS # 0.3 x10^3/uL (0.0-0.7); EOS % 3 % (0-3); HEMATOCRIT 30.2 % (39.0-53.0); HEMOGLOBIN 9.6 g/dL (13.0-17.5); LYMPH % 18 % (24-48); MEAN CORPUSCULAR HEMOGLOBIN 30 pg (25-35); MEAN CORPUSCULAR HGB CONC 32 g/dL (31-37); MEAN CORPUSCULAR VOLUME 93 fL (79-100); MONO # 0.9 x10^3/uL (0.0-1.1); MONO % 8 % (0-9); NEUT # 8.2 x10^3/uL (1.8-7.7); NEUT % 71 % (31-73); PLATELET COUNT 438 x10^3/uL (140-400); RED BLOOD COUNT 3.25 x10^6/uL (4.30-5.70); RED CELL DISTRIBUTION WIDTH 15.6 % (11.5-14.5); WHITE BLOOD COUNT 11.5 x10^3/uL (4.0-11.0)
[2021-07-30 04:59] LABS: CALCIUM 8.1 mg/dL (8.5-10.1); CREATININE 0.7 mg/dL (0.7-1.3); GFR 114.6; POTASSIUM 3.5 mmol/L (3.5-5.1)
[2021-07-30] MEDS: PANTOPRAZOLE 40 MG TABLET.DR. PO SCH (06:23)
[2021-07-30 07:00] VITALS: BP 114/75
[2021-07-30] MEDS: INSULIN LISPRO 300 UNITS/3 ML VIAL. SQ SCH ×3 (08:00→17:00)
--- NOTE | 2021-07-30 08:19 | PDOC ---
[facility] PROGRESS NOTE Date of Service DOS: DATE: 07/30/21 TIME: 08:15 Chief Complaint Chief Complaint A/P: Confusion and lethargy, AMS Acute COVID-19 infection Acute infectious and metabolic encephalopathy IVORY due to vasomotor nephropathy improved Lactic acidemia Dysphagia Malnutrition Heel erythema on admit, poor nail care and dystrophic nails PAD - confirmed on arterial dopplers, may have COVID toes History of Present Illness History of Present Illness Mr Lambert is a 60-year-old male that presented 06/29/2021 via [facility] with decreased level of consciousness. Most of the history was obtained via EMS and patient's friend Reese [phone], who states that patient has been sick since about June 22 per Reese, he states that they both had cough cold heada patrice sinus type pain. Per Reese's report patient is okay during the day and very alert and orientated and at night he has a decreased alertness. Patient is unable to help with exam when asked questions he does deny any past medical history, surgeries, or any other health conditions. Reese who is his roommate collaborates any information gotten from the patient. Accu-Chek per EMS was 250, room air sat in the room was 88 to 90%. 07/07: not much improved, about the same. cont current. PULM following. we have no clinimix, cont D5 fluid, 07/08: more alert, can try ST again, if able to sit up, still very weak 07/09: much more alert, bedside swallow of water ok, sits upright, much stronger, will try clears if able, ST to follow. toes are worsening, now black, hannah consult podiatry to follow, 07/10: More alert. Working with speech and swallowing today. Off O2. Less confused. Bilateral toe ulcers assessed by podiatry today. 07/11: More alert, eating. Arterial Doppler was left popliteal and severe distal disease bilaterally. Still has a little bit of a cough. Less confused today. 07/12: Eating reasonably well. Tentative plans for angiogram for consideration of limb salvage bilateral feet tomorrow. Discussed with cardiology. He will need significant follow-up care likely eventual amputations. 07/13: N.p.o. for angiogram today with bilateral SFA occlusive disease and left popliteal disease with left posterior tibial artery with some flow otherwise occlusive disease per cardiology. Discussed vascular surgery consultation for consideration of definitive revascularization with likely bilateral transmetatarsal amputations. Still with a little bit of a cough. Shortness of breath 07/14: Seen bedside. Having some pain in his bilateral extremities. Shortness of breath improved still with little bit of cough. Eating again. Amenable to revascularization and likely surgical debridement next week. Increasing thromboprophylaxis 07/15: Seen bedside. Not hypoxic. Cough is improving. He feels he is mental status is improved but he is definitely still mentating slowly. Complains of foot pain. He is contemplating surgical options but is okay with what ever the surgeons to choose for his likely lower extremity bypass tentatively planned for 07/17/202107/16: Bilateral foot pain still with cough but improving. Still is contemplating surgical options. 07/17: Patient off floor for surgery today. Chart evaluated. s/p bilateral pop/tibial thrombectomies with patch angioplasty. s/p RLE hematoma evacuation 07/18: Patient did and examined at bedside. He is postop day 1 from bilateral thrombectomies yesterday. Looks like he may need more surgery prior to discharge. Continue heparin drip. Suspect leukocytosis today secondary to surgery. Continue current. 07/19: Patient evaluated examined at bedside. He was working with physical therapy when seen. Continuing heparin drip. Recheck CBC today. Cardiology following vascular following. Will likely need further surgery prior to discharge. 07/20: Seen at bedside. Having RLE pain and had Hgb drop overnight. Will transfuse. Stop heparin drip for now. Seen by vascular, hematoma evacuation ordered. serial Hgb. 07/21: Patient evaluated examined at bedside. Hemoglobin improved up to 8.1 today. Underwent hematoma evacuation yesterday. Planning for further intervention next week. 07/22: Examine and evaluated at bedside. Resting in bed no major complaints. Hemoglobin stable. Appreciate Cardiology resuming heparin. Further intervention next week. 07/23: Seen at bedside no motor complaints. Hemoglobin still stable. No major clinical changes for today. Intervention this coming week. 07/24: Seen bedside. Has good appetite no cough shortness of breath or chest pain. Left heel with more gangrenous changes left feet. Plan for n.p.o. after midnight 07/25: Seen bedside. N.p.o. for bilateral foot debridement today. K3. Glucose low 100s. Has a friend visiting today. No chest pain or shortness of breath. Pain controlled. 2: Changes in the off heparin drip to Xarelto. No significant anticoagulation for 3 months then can start progressive ambulation with physical therapy with postop shoe per vascular surgery recommendations. No shortness of breath or chest pain today just very weak. 2: Up to chair today, has more bilateral foot pain, now wearing post -op shoes. No SOB or cough. He is asking to get back into bed. Encouraged to continue trying to get on his feet. 07/28: In bed. Foot pain is improved from yesterday. No shortness of breath no cough. Still very weak even weak eating today. 07/29: Seen in bed. No foot pain today. No shortness of breath or cough. Still weak eating well. Not out of bed today. Glucose low 100s. 07/30: Seen in bed. Pain-free eating breakfast in bed. Still feeling weak has been up on his foot the last day. Glucose well controlled. Vitals/I&O Vitals/I&O: Vital Signs Date Time Temp Pulse Resp B/P (MAP) Pulse Ox O2 Delivery O2 Flow Rate FiO2 07/30/21 03:10 97.4 84 18 122/74 (90) 95 Room Air 97.4 I & O 07/29/21 07/29/21 07/30/21 15:00 23:00 07:00 Intake Total 220 ml 100 ml 200 ml Output Total 500 ml Balance 220 ml -400 ml 200 ml Physical Exam Physical Exam: lethargic and weak General: Alert, No acute distress Heart: Regular rate Lungs: Clear Abdomen: Soft, No tenderness Extremities: Other (Bilateral leg incisions intact without erythema or signs of infection. 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 No surrounding erythema or fluctuance at this time. The skin on the left forefoot continues to improve. There has been significant improvement since harriet.) Skin: Other (No further hematoma accumulation) Labs Labs: Laboratory Tests Test 07/29/21 11:38 07/29/21 17:31 07/29/21 20:59 07/30/21 03:15 Glucose (Fingerstick) 119 mg/dL (70-99) 101 mg/dL (70-99) 95 mg/dL (70-99) White Blood Count 11.5 x10^3/uL (4.0-11.0) Red Blood Count 3.25 x10^6/uL (4.30-5.70) Hemoglobin 9.6 g/dL (13.0-17.5) Hematocrit 30.2 % (39.0-53.0) Mean Corpuscular Volume 93 fL (79-100) Mean Corpuscular Hemoglobin 30 pg (25-35) Mean Corpuscular Hemoglobin Concent 32 g/dL (31-37) Red Cell Distribution Width 15.6 % (11.5-14.5) Platelet Count 438 x10^3/uL (140-400) Neutrophils (%) (Auto) 71 % (31-73) Lymphocytes (%) (Auto) 18 % (24-48) Monocytes (%) (Auto) 8 % (0-9) Eosinophils (%) (Auto) 3 % (0-3) Basophils (%) (Auto) 1 % (0-3) Neutrophils # (Auto) 8.2 x10^3/uL (1.8-7.7) Lymphocytes # (Auto) 2.0 x10^3/uL (1.0-4.8) Monocytes # (Auto) 0.9 x10^3/uL (0.0-1.1) Eosinophils # (Auto) 0.3 x10^3/uL (0.0-0.7) Basophils # (Auto) 0.1 x10^3/uL (0.0-0.2) Sodium Level 143 mmol/L (136-145) Potassium Level 3.5 mmol/L (3.5-5.1) Chloride Level 105 mmol/L (98-107) Carbon Dioxide Level 28 mmol/L (21-32) Anion Gap 10 (6-14) Blood Urea Nitrogen 14 mg/dL (8-26) Creatinine 0.7 mg/dL (0.7-1.3) Estimated GFR (Cockcroft-Gault) 114.6 Glucose Level 98 mg/dL (70-99) Calcium Level 8.1 mg/dL (8.5-10.1) Assessment and Plan Assessmemt and Plan Problems Medical Problems: (1) Dehydration Status: Acute (2) Mental status alteration Status: Acute (3) Pneumonia Status: Acute Comment Review of Relevant I have reviewed the following items amanda (where applicable) has been applied. Justifications for Admission Other Justification COVID-19 positive test (U07.1, COVID-19) with Acute Pneumonia (J12.89, Other viral pneumonia) (If respiratory failure or sepsis present, add as separate assessment) SIMONE ARGUELLO MD Jul 30, 2021 08:19
[2021-07-30] MEDS: METOPROLOL TART IMMED RELEASE 25 MG TABLET. PO SCH ×2 (10:01→21:00)
[2021-07-30] MEDS: ASCORBIC ACID 500 MG TABLET PO SCH (10:01)
[2021-07-30] MEDS: THIAMINE 100 MG TABLET. PO SCH (10:02)
[2021-07-30] MEDS: ASPIRIN CHEWABLE 81 MG TABLET. PO SCH (10:02)
[2021-07-30] MEDS: ZINC SULFATE 220 MG CAPSULE. PO SCH (10:02)
[2021-07-30 11:00] VITALS: BP 128/83
[2021-07-30 15:00] VITALS: BP 123/75
--- NOTE | 2021-07-30 15:35 | PDOC ---
PROGRESS NOTES Date of Service DATE: 07/30/21 TIME: 15:34 Subjective Subjective Patient seen and examined Objective Objective Vital Signs Date Time Temp Pulse Resp B/P (MAP) Pulse Ox O2 Delivery O2 Flow Rate FiO2 07/30/21 11:00 97.9 90 18 128/83 (98) 95 Room Air 97.9 07/25/21 20:52 6.0 Intake and Output 07/30/21 07:00 Intake Total 520 ml Output Total 500 ml Balance 20 ml Intake Oral 520 ml Output Urine Total 500 ml Physical Exam Abdomen: Normal bowel sounds Heart: Regular rate General: mild distress Lungs: Other (Mildly decreased breath sounds) Assessment Assessment Problems Medical Problems: (1) Dehydration Status: Acute (2) Mental status alteration Status: Acute (3) Pneumonia Status: Acute Plan Plan of Care Acute respiratory failure due to acute COVID infection. Improving. Continue present medications. Encephalopathy; CT head without acute findings. Also improved. PAD, subacute thrombotic occlusion of the bilateral popliteal and proximal tibial vessels. s/p bilateral pop/tibial thrombectomy with patch angioplasty. Continuing present medications including anticoagulation. 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 Plans to allow more time for healing Hypertension; controlled Anemia requiring transfusion. Monitoring lab RLE hematoma; s/p evacuation Comment Review of Relevant I have reviewed the following items amanda (where applicable) has been applied. Labs Laboratory Tests Test 07/28/21 16:58 07/28/21 20:34 07/29/21 07:59 07/29/21 11:38 Glucose (Fingerstick) 135 mg/dL (70-99) 130 mg/dL (70-99) 122 mg/dL (70-99) 119 mg/dL (70-99) Test 07/29/21 17:31 07/29/21 20:59 07/30/21 03:15 07/30/21 08:42 Glucose (Fingerstick) 101 mg/dL (70-99) 95 mg/dL (70-99) 103 mg/dL (70-99) White Blood Count 11.5 x10^3/uL (4.0-11.0) Red Blood Count 3.25 x10^6/uL (4.30-5.70) Hemoglobin 9.6 g/dL (13.0-17.5) Hematocrit 30.2 % (39.0-53.0) Mean Corpuscular Volume 93 fL (79-100) Mean Corpuscular Hemoglobin 30 pg (25-35) Mean Corpuscular Hemoglobin Concent 32 g/dL (31-37) Red Cell Distribution Width 15.6 % (11.5-14.5) Platelet Count 438 x10^3/uL (140-400) Neutrophils (%) (Auto) 71 % (31-73) Lymphocytes (%) (Auto) 18 % (24-48) Monocytes (%) (Auto) 8 % (0-9) Eosinophils (%) (Auto) 3 % (0-3) Basophils (%) (Auto) 1 % (0-3) Neutrophils # (Auto) 8.2 x10^3/uL (1.8-7.7) Lymphocytes # (Auto) 2.0 x10^3/uL (1.0-4.8) Monocytes # (Auto) 0.9 x10^3/uL (0.0-1.1) Eosinophils # (Auto) 0.3 x10^3/uL (0.0-0.7) Basophils # (Auto) 0.1 x10^3/uL (0.0-0.2) Sodium Level 143 mmol/L (136-145) Potassium Level 3.5 mmol/L (3.5-5.1) Chloride Level 105 mmol/L (98-107) Carbon Dioxide Level 28 mmol/L (21-32) Anion Gap 10 (6-14) Blood Urea Nitrogen 14 mg/dL (8-26) Creatinine 0.7 mg/dL (0.7-1.3) Estimated GFR (Cockcroft-Gault) 114.6 Glucose Level 98 mg/dL (70-99) Calcium Level 8.1 mg/dL (8.5-10.1) Test 07/30/21 12:10 Glucose (Fingerstick) 124 mg/dL (70-99) Laboratory Tests Test 07/29/21 17:31 07/29/21 20:59 07/30/21 03:15 07/30/21 08:42 Glucose (Fingerstick) 101 mg/dL (70-99) 95 mg/dL (70-99) 103 mg/dL (70-99) White Blood Count 11.5 x10^3/uL (4.0-11.0) Red Blood Count 3.25 x10^6/uL (4.30-5.70) Hemoglobin 9.6 g/dL (13.0-17.5) Hematocrit 30.2 % (39.0-53.0) Mean Corpuscular Volume 93 fL (79-100) Mean Corpuscular Hemoglobin 30 pg (25-35) Mean Corpuscular Hemoglobin Concent 32 g/dL (31-37) Red Cell Distribution Width 15.6 % (11.5-14.5) Platelet Count 438 x10^3/uL (140-400) Neutrophils (%) (Auto) 71 % (31-73) Lymphocytes (%) (Auto) 18 % (24-48) Monocytes (%) (Auto) 8 % (0-9) Eosinophils (%) (Auto) 3 % (0-3) Basophils (%) (Auto) 1 % (0-3) Neutrophils # (Auto) 8.2 x10^3/uL (1.8-7.7) Lymphocytes # (Auto) 2.0 x10^3/uL (1.0-4.8) Monocytes # (Auto) 0.9 x10^3/uL (0.0-1.1) Eosinophils # (Auto) 0.3 x10^3/uL (0.0-0.7) Basophils # (Auto) 0.1 x10^3/uL (0.0-0.2) Sodium Level 143 mmol/L (136-145) Potassium Level 3.5 mmol/L (3.5-5.1) Chloride Level 105 mmol/L (98-107) Carbon Dioxide Level 28 mmol/L (21-32) Anion Gap 10 (6-14) Blood Urea Nitrogen 14 mg/dL (8-26) Creatinine 0.7 mg/dL (0.7-1.3) Estimated GFR (Cockcroft-Gault) 114.6 Glucose Level 98 mg/dL (70-99) Calcium Level 8.1 mg/dL (8.5-10.1) Test 07/30/21 12:10 Glucose (Fingerstick) 124 mg/dL (70-99) Medications Current Medications Sodium Chloride 1,000 ml @ 999 mls/hr 1X ONCE IV Last administered on 06/29/21at 19:10; Start 06/29/21 at 19:00; Stop 06/29/21 at 20:00; Status DC Dexamethasone Sodium Phosphate (Decadron) 10 mg 1X ONCE IV Last administered on 06/29/21at 20:30; Start 06/29/21 at 20:00; Stop 06/29/21 at 20:05; Status DC Sodium Chloride 1,000 ml @ 999 mls/hr 1X ONCE IV Last administered on 06/29/21at 20:30; Start 06/29/21 at 20:00; Stop 06/29/21 at 21:00; Status DC Ceftriaxone Sodium (Rocephin) 1 gm 1X ONCE IVP Last administered on 06/29/21at 20:29; Start 06/29/21 at 20:00; Stop 06/29/21 at 20:05; Status DC Azithromycin 250 ml @ 250 mls/hr 1X ONCE IV Last administered on 06/29/21at 20:00; Start 06/29/21 at 20:00; Stop 06/29/21 at 20:59; Status DC Sodium Chloride 1,000 ml @ 75 mls/hr [id number] IV Last administered on 06/30/21at 12:32; Start 06/29/21 at 20:45; Stop 06/30/21 at 20:44; Status DC Info (FLU VACCINE SCREEN per RX) 0.5 each 1X ONCE MC ; Start 07/01/21 at 09:00; Stop 07/01/21 at 09:01; Status DC Ascorbic Acid (Vitamin C) 3,000 mg TID PO Last administered on 07/25/21at 12:10; Start 06/30/21 at 21:00; Stop 07/25/21 at 15:43; Status DC Dexamethasone Sodium Phosphate (Decadron) 6 mg DAILY IVP Last administered on 07/10/21at 08:57; Start 06/30/21 at 16:00; Stop 07/10/21 at 12:29; Status DC Thiamine Mononitrate (Vitamin B-1) 300 mg DAILY PO Last administered on 07/25/21at 12:10; Start 06/30/21 at 16:00; Stop 07/25/21 at 15:43; Status DC Zinc Sulfate (Orazinc) 220 mg DAILY PO Last administered on 07/30/21at 10:02; Start 06/30/21 at 16:00 Sennosides (Senna) 17.2 mg PRN BID PRN PO CONSTIPATION; Start 06/30/21 at 15:15 Docusate Sodium (Colace) 100 mg PRN DAILY PRN PO HARD STOOLS; Start 06/30/21 at 15:15 Ondansetron HCl (Zofran) 4 mg PRN Q6HRS PRN IVP NAUSEA/VOMITING, 1st CHOICE; Start 06/30/21 at 15:15; Stop 07/05/21 at 14:02; Status DC Dextrose (Dextrose 50%-Water Syringe) 12.5 gm PRN Q15MIN PRN IV SEE COMMENTS; Start 06/30/21 at 15:15; Stop 07/05/21 at 12:45; Status DC Acetaminophen (Tylenol) 650 mg PRN Q4HRS PRN PO TEMP OVER 100.4F OR MILD PAIN; Start 06/30/21 at 15:15 Lorazepam (Ativan) 0.5 mg PRN Q6HRS PRN PO ANXIETY / AGITATION; Start 06/30/21 at 15:15; Stop 07/05/21 at 14:02; Status DC Lorazepam (Ativan Inj) 0.25 mg PRN Q4HRS PRN IV ANXIETY / AGITATION; Start 06/30/21 at 15:15; Stop 07/05/21 at 14:02; Status DC Enoxaparin Sodium (Lovenox 40mg Syringe) 40 mg Q24H SQ Last administered on 07/13/21at 17:20; Start 06/30/21 at 16:00; Stop 07/14/21 at 12:21; Status DC Prochlorperazine Edisylate (Compazine) 10 mg PRN Q6HRS PRN IV NAUSEA/VOMITING, 2nd CHOICE; Start 06/30/21 at 15:15; Stop 07/05/21 at 14:02; Status DC Diphenhydramine HCl (Benadryl) 25 mg PRN Q6HRS PRN IVP ITCHING; Start 06/30/21 at 15:15; Stop 07/05/21 at 14:02; Status DC Diphenhydramine HCl (Benadryl) 25 mg PRN Q6HRS PRN PO ITCHING; Start 06/30/21 at 15:15; Stop 07/05/21 at 14:02; Status DC Diphenhydramine HCl (Benadryl) 25 mg PRN QHS PRN PO INSOMNIA, 1ST CHOICE; Start 06/30/21 at 15:15; Stop 07/05/21 at 14:02; Status DC Zolpidem Tartrate (Ambien) 2.5 mg PRN QHS PRN PO INSOMNIA, 2ND CHOICE; Start 06/30/21 at 15:15; Stop 07/05/21 at 14:02; Status DC Pantoprazole Sodium (PROTONIX VIAL for IV PUSH) 40 mg DAILYAC IVP Last administered on 07/27/21at 08:44; Start 06/30/21 at 16:00; Stop 07/27/21 at 16:51; Status DC Amino Acids/ Electrolytes/ Dextrose 1,000 ml @ 80 mls/hr [id number] IV ; Start 07/04/21 at 09:15; Status UNV Dextrose/Lactated Ringer's 1,000 ml @ 80 mls/hr [id number] IV Last administered on 07/12/21at 06:27; Start 07/04/21 at 09:30; Stop 07/12/21 at 10:58; Status DC Insulin Human Lispro (HumaLOG) 0-5 UNITS TIDWMEALS SQ ; Start 07/05/21 at 17:00 Dextrose (Dextrose 50%-Water Syringe) 12.5 gm PRN Q15MIN PRN IV SEE COMMENTS Last administered on 07/09/21at 23:48; Start 07/05/21 at 12:45 Aspirin (Ecotrin) 81 mg DAILYWBKFT PO Last administered on 07/20/21at 08:52; Start 07/11/21 at 15:00; Stop 07/20/21 at 14:10; Status DC Atorvastatin Calcium (Lipitor) 20 mg QHS PO Last administered on 07/29/21at 20:48; Start 07/11/21 at 21:00 Metoprolol Tartrate (Lopressor) 25 mg BID PO Last administered on 07/30/21at 10:01; Start 07/12/21 at 12:15 Heparin Sodium/ Sodium Chloride (HEPARIN for ARTERIAL LINE FLUSH) 1,000 unit 1X ONCE IART Last administered on 07/13/21at 13:00; Start 07/13/21 at 13:00; Stop 07/13/21 at 13:01; Status DC Heparin Sodium/ Sodium Chloride (HEPARIN for ARTERIAL LINE FLUSH) 1,000 unit 1X ONCE IART Last administered on 07/13/21at 13:00; Start 07/13/21 at 13:00; Stop 07/13/21 at 13:01; Status DC Midazolam HCl (Versed) 2 mg 1X ONCE IV Last administered on 07/13/21at 13:20; Start 07/13/21 at 13:00; Stop 07/13/21 at 13:01; Status DC Fentanyl Citrate (Fentanyl 2ml Vial) 100 mcg 1X ONCE IV Last administered on 07/13/21at 13:20; Start 07/13/21 at 13:00; Stop 07/13/21 at 13:01; Status DC Iodixanol (Visipaque 320) 100 ml 1X ONCE IART Last administered on 07/13/21at 13:50; Start 07/13/21 at 13:00; Stop 07/13/21 at 13:01; Status DC Lidocaine HCl (Lidocaine 1% 20ml Vial) 20 ml 1X ONCE INJ Last administered on 07/13/21at 13:22; Start 07/13/21 at 13:00; Stop 07/13/21 at 13:01; Status DC Nitroglycerin (Nitroglycerin) 200 mcg 1X ONCE IART Last administered on 07/13/21at 13:23; Start 07/13/21 at 13:30; Stop 07/13/21 at 13:35; Status DC Verapamil HCl (Verapamil) 2.5 mg 1X ONCE IART Last administered on 07/13/21at 13:23; Start 07/13/21 at 13:30; Stop 07/13/21 at 13:35; Status DC Heparin Sodium (Porcine) (Heparin Sodium) 2,500 unit 1X ONCE IART Last administered on 07/13/21at 13:30; Start 07/13/21 at 13:30; Stop 07/13/21 at 13:35; Status DC Potassium Chloride (Klor-Con) 20 meq 1X ONCE PO Last administered on 07/14/21at 11:48; Start 07/14/21 at 11:00; Stop 07/14/21 at 11:01; Status DC Enoxaparin Sodium (Lovenox 80mg Syringe) 80 mg Q12HR SQ Last administered on 07/16/21at 21:01; Start 07/14/21 at 13:00; Stop 07/17/21 at 12:12; Status DC Fentanyl Citrate (Fentanyl 2ml Vial) 25 mcg PRN Q5MIN PRN IVP MILD PAIN 1-3; Start 07/17/21 at 06:00; Stop 07/18/21 at 06:00; Status DC Fentanyl Citrate (Fentanyl 2ml Vial) 50 mcg PRN Q5MIN PRN IVP MODERATE PAIN 4- 6; Start 07/17/21 at 06:00; Stop 07/18/21 at 06:00; Status DC Morphine Sulfate (Morphine Sulfate) 1 mg PRN Q10MIN PRN IVP SEVERE PAIN 7-10; Start 07/17/21 at 06:00; Stop 07/18/21 at 06:00; Status DC Ringer's Solution 1,000 ml @ 30 mls/hr Q24H IV Last administered on 07/17/21at 07:50; Start 07/17/21 at 06:00; Stop 07/17/21 at 17:59; Status DC Hydromorphone HCl (Dilaudid) 0.5 mg PRN Q10MIN PRN IVP SEVERE PAIN 7-10, 2nd CHOICE; Start 07/17/21 at 06:00; Stop 07/18/21 at 06:00; Status DC Prochlorperazine Edisylate (Compazine) 5 mg PACU PRN PRN IVP NAUSEA, MRX1; Start 07/17/21 at 06:00; Stop 07/18/21 at 06:00; Status DC Cefazolin Sodium 1 gm/Sodium Chloride 500 ml @ 500 mls/hr 1X ONCE IRR Last administered on 07/17/21at 08:57; Start 07/17/21 at 08:00; Stop 07/17/21 at 08:59; Status DC Heparin Sodium (Porcine) 5000 unit/Sodium Chloride 505 ml @ 505 mls/hr 1X ONCE IRR Last administered on 07/17/21at 08:57; Start 07/17/21 at 08:00; Stop 07/17/21 at 08:59; Status DC Sodium Chloride 1,000 ml @ 100 mls/hr Q10H IV Last administered on 07/21/21at 10:38; Start 07/17/21 at 12:00; Stop 07/21/21 at 15:21; Status DC Morphine Sulfate (Morphine Sulfate) 2 mg PRN Q2HR PRN IVP PAIN Last administered on 07/20/21at 09:38; Start 07/17/21 at 08:15; Stop 07/28/21 at 10:15; Status DC Oxycodone/ Acetaminophen (Percocet 5/325) 1 tab PRN Q4HRS PRN PO MODERATE PAIN Last administered on 07/27/21at 20:29; Start 07/17/21 at 08:15 Sugammadex Sodium (Bridion) 200 mg 1X ONCE IVP ; Start 07/17/21 at 09:30; Stop 07/17/21 at 09:31; Status DC Cefazolin Sodium 1 gm/Sodium Chloride 500 ml @ 500 mls/hr 1X ONCE IRR Last administered on 07/17/21at 10:30; Start 07/17/21 at 10:30; Stop 07/17/21 at 11:29; Status DC Cellulose (Surgicel Fibrillar 1x2) 1 each STK-MED ONCE TP Last administered on 07/17/21at 11:23; Start 07/17/21 at 11:23; Stop 07/17/21 at 11:26; Status DC Heparin Sodium/ Dextrose 250 ml @ 10 mls/hr q10hr IV ; Start 07/17/21 at 12:15; Stop 07/17/21 at 12:15; Status DC Cefazolin Sodium/ Dextrose 50 ml @ 100 mls/hr Q8HRS IV Last administered on 07/17/21at 19:52; Start 07/17/21 at 14:00; Stop 07/17/21 at 22:29; Status DC Heparin Sodium/ Dextrose 250 ml @ 10 mls/hr q10hr IV ; Start 07/17/21 at 12:15; Stop 07/17/21 at 13:04; Status DC Heparin Sodium/ Dextrose 250 ml @ 10 mls/hr CONT PRN PRN IV SEE PROTOCOL Last administered on 07/17/21at 13:00; Start 07/17/21 at 13:15; Stop 07/18/21 at 11:06; Status DC Heparin Sodium/ Dextrose 250 ml @ 13.264 mls/ hr CONT PRN IV PER PROTOCOL Last administered on 07/19/21at 21:46; Start 07/18/21 at 11:15; Stop 07/20/21 at 09:38; Status DC Heparin Sodium (Porcine) (Heparin Sodium) 2,500 unit PRN Q6HRS PRN IV FOR UFH LEVEL LESS THAN 0.2; Start 07/18/21 at 11:15; Stop 07/20/21 at 13:11; Status DC Heparin Sodium (Porcine) (Heparin Sodium) 1,250 unit PRN Q6HRS PRN IV FOR UFH LEVEL 0.2 - 0.29 Last administered on 07/18/21at 20:10; Start 07/18/21 at 11:15; Stop 07/20/21 at 13:11; Status DC Glycopyrrolate (Glycopyrrolate) 1 mg STK-MED ONCE .ROUTE ; Start 07/17/21 at 12:00; Stop 07/18/21 at 12:44; Status DC Heparin Sodium/ Sodium Chloride 500 ml @ As Directed STK-MED ONCE .ROUTE ; Start 07/13/21 at 08:02; Stop 07/18/21 at 12:49; Status DC Iodixanol (Visipaque 320) 100 ml STK-MED ONCE .ROUTE ; Start 07/13/21 at 08:02; Stop 07/18/21 at 12:49; Status DC Heparin Sodium/ Sodium Chloride 1,000 ml @ As Directed STK-MED ONCE .ROUTE ; Start 07/13/21 at 12:45; Stop 07/18/21 at 12:53; Status DC Midazolam HCl (Versed) 2 mg STK-MED ONCE .ROUTE ; Start 07/13/21 at 12:46; Stop 07/18/21 at 12:53; Status DC Fentanyl Citrate (Fentanyl 2ml Vial) 100 mcg STK-MED ONCE .ROUTE ; Start 07/13/21 at 12:46; Stop 07/18/21 at 12:53; Status DC Heparin Sodium (Porcine) (Heparin Sodium) 10,000 unit STK-MED ONCE .ROUTE ; Start 07/13/21 at 12:52; Stop 07/18/21 at 12:53; Status DC Verapamil HCl (Verapamil) 5 mg STK-MED ONCE .ROUTE ; Start 07/13/21 at 13:12; Stop 07/18/21 at 12:53; Status DC Cellulose (Surgicel Fibrillar 1x2) 1 each STK-MED ONCE .ROUTE ; Start 07/17/21 at 07:08; Stop 07/18/21 at 13:29; Status DC Iohexol (Omnipaque 300 Mg/ml) 50 ml STK-MED ONCE .ROUTE ; Start 07/17/21 at 07:08; Stop 07/18/21 at 13:29; Status DC Protamine Sulfate (Protamine) 50 mg STK-MED ONCE IV ; Start 07/17/21 at 07:08; Stop 07/18/21 at 13:29; Status DC Phenylephrine HCl (Jesus-Synephrine Inj) 10 mg STK-MED ONCE .ROUTE ; Start 07/17/21 at 05:34; Stop 07/18/21 at 13:30; Status DC Ephedrine Sulfate (ePHEDrine PF IN SALINE SYRINGE) 50 mg STK-MED ONCE IV ; Start 07/17/21 at 05:34; Stop 07/18/21 at 13:30; Status DC Succinylcholine Chloride (Anectine) 200 mg STK-MED ONCE .ROUTE ; Start 07/17/21 at 05:35; Stop 07/18/21 at 13:30; Status DC Epinephrine HCl (Adrenalin) 1 mg STK-MED ONCE .ROUTE ; Start 07/17/21 at 05:35; Stop 07/18/21 at 13:30; Status DC Protamine Sulfate (Protamine) 50 mg STK-MED ONCE IV ; Start 07/17/21 at 07:35; Stop 07/18/21 at 13:31; Status DC Heparin Sodium (Porcine) (Heparin Sodium) 10,000 unit STK-MED ONCE .ROUTE ; Start 07/17/21 at 07:35; Stop 07/18/21 at 13:31; Status DC Dexamethasone Sodium Phosphate (Decadron) 4 mg STK-MED ONCE .ROUTE ; Start 07/17/21 at 07:35; Stop 07/18/21 at 13:31; Status DC Ondansetron HCl (Zofran) 4 mg STK-MED ONCE .ROUTE ; Start 07/17/21 at 07:35; Stop 07/18/21 at 13:31; Status DC Epinephrine HCl (EPINEPHrine SYRINGE) 1 mg STK-MED ONCE .ROUTE ; Start 07/17/21 at 07:35; Stop 07/18/21 at 13:31; Status DC Midazolam HCl (Versed) 2 mg STK-MED ONCE .ROUTE ; Start 07/17/21 at 07:37; Stop 07/18/21 at 13:31; Status DC Fentanyl Citrate (Fentanyl 5ml Vial) 250 mcg STK-MED ONCE .ROUTE ; Start 07/17/21 at 07:37; Stop 07/18/21 at 13:31; Status DC Cefazolin Sodium/ Dextrose 50 ml @ As Directed STK-MED ONCE IV ; Start 07/17/21 at 08:51; Stop 07/18/21 at 13:35; Status DC Hydromorphone HCl (Dilaudid) 2 mg STK-MED ONCE .ROUTE ; Start 07/17/21 at 11:54; Stop 07/18/21 at 13:36; Status DC Fentanyl Citrate (Fentanyl 2ml Vial) 100 mcg STK-MED ONCE .ROUTE ; Start 07/17/21 at 11:54; Stop 07/18/21 at 13:36; Status DC Morphine Sulfate (Morphine Sulfate) 2 mg STK-MED ONCE .ROUTE ; Start 07/17/21 at 11:55; Stop 07/18/21 at 13:36; Status DC Cefazolin Sodium/ Dextrose 50 ml @ 100 mls/hr 1X PREOP PRN IV PRIOR TO PROCEDURE Last administered on 07/20/21at 15:45; Start 07/20/21 at 14:00; Stop 07/21/21 at 13:59; Status DC Cefazolin Sodium/ Dextrose 50 ml @ As Directed STK-MED ONCE IV ; Start 07/20/21 at 13:50; Stop 07/20/21 at 13:50; Status DC Propofol (Diprivan) 200 mg STK-MED ONCE IV ; Start 07/20/21 at 14:06; Stop at 14:07; Status DC Lidocaine HCl (Xylocaine-Mpf 1% 5ml Vial) 5 ml STK-MED ONCE .ROUTE ; Start 07/20/21 at 14:07; Stop 07/20/21 at 14:07; Status DC Fentanyl Citrate (Fentanyl 2ml Vial) 100 mcg STK-MED ONCE .ROUTE ; Start 07/20/21 at 14:07; Stop 07/20/21 at 14:07; Status DC Cellulose (Surgicel Fibrillar 1x2) 1 each STK-MED ONCE .ROUTE Last administered on 07/20/21at 16:07; Start 07/20/21 at 16:04; Stop 07/20/21 at 16:05; Status DC Fentanyl Citrate (Fentanyl 2ml Vial) 25 mcg PRN Q5MIN PRN IVP MILD PAIN 1-3; Start 07/20/21 at 16:15; Stop 07/21/21 at 02:00; Status DC Fentanyl Citrate (Fentanyl 2ml Vial) 50 mcg PRN Q5MIN PRN IVP MODERATE PAIN 4- 6; Start 07/20/21 at 16:15; Stop 07/21/21 at 02:00; Status DC Morphine Sulfate (Morphine Sulfate) 1 mg PRN Q10MIN PRN IVP SEVERE PAIN 7-10; Start 07/20/21 at 16:15; Stop 07/21/21 at 02:00; Status DC Hydromorphone HCl (Dilaudid) 0.5 mg PRN Q10MIN PRN IVP SEVERE PAIN 7-10, 2nd CHOICE; Start 07/20/21 at 16:15; Stop 07/21/21 at 02:00; Status DC Prochlorperazine Edisylate (Compazine) 5 mg PACU PRN PRN IVP NAUSEA, MRX1; Start 07/20/21 at 16:15; Stop 07/25/21 at 07:58; Status DC Insulin Human Lispro (HumaLOG VIAL for OP,RR ONLY) 0-10 units PRN Q1HR PRN SQ PER PROTOCOL; Start 07/20/21 at 16:15; Stop 07/21/21 at 16:14; Status DC Cefazolin Sodium/ Dextrose 50 ml @ 100 mls/hr Q8HRS IV Last administered on 07/21/21at 05:21; Start 07/20/21 at 22:00; Stop 07/21/21 at 06:29; Status DC Oxycodone/ Acetaminophen (Percocet 5/325) 2 tab PRN Q4HRS PRN PO SEVERE PAIN; Start 07/20/21 at 16:45 Hydromorphone HCl (Dilaudid) 2 mg STK-MED ONCE .ROUTE ; Start 07/20/21 at 16:50; Stop 07/20/21 at 16:50; Status DC Aspirin (Aspirin Chewable) 81 mg DAILYWBKFT PO Last administered on 07/30/21at 10:02; Start 07/23/21 at 08:00 Heparin Sodium/ Dextrose 250 ml @ 8.789 mls/ hr CONT PRN IV PER PROTOCOL Last administered on 07/25/21at 20:23; Start 07/22/21 at 16:30; Stop 07/26/21 at 13:44; Status DC Heparin Sodium (Porcine) (Heparin Sodium) 2,000 unit PRN Q6HRS PRN IV FOR UFH LEVEL LESS THAN 0.2 Last administered on 07/23/21at 01:17; Start 07/22/21 at 16:30; Stop 07/26/21 at 13:44; Status DC Cefazolin Sodium/ Dextrose 50 ml @ 100 mls/hr 1X PREOP PRN IV PRIOR TO PROCEDURE; Start 07/25/21 at 06:00; Stop 07/25/21 at 18:00; Status DC Cefazolin Sodium 1 gm/Sodium Chloride 500 ml @ 500 mls/hr 1X ONCE IRR ; Start 07/25/21 at 06:00; Stop 07/25/21 at 07:00; Status DC Fentanyl Citrate (Fentanyl 2ml Vial) 25 mcg PRN Q5MIN PRN IVP MILD PAIN 1-3; Start 07/25/21 at 06:00; Stop 07/25/21 at 20:00; Status DC Fentanyl Citrate (Fentanyl 2ml Vial) 50 mcg PRN Q5MIN PRN IVP MODERATE PAIN 4- 6; Start 07/25/21 at 06:00; Stop 07/25/21 at 20:00; Status DC Morphine Sulfate (Morphine Sulfate) 1 mg PRN Q10MIN PRN IVP SEVERE PAIN 7-10; Start 07/25/21 at 06:00; Stop 07/25/21 at 20:00; Status DC Ringer's Solution 1,000 ml @ 30 mls/hr Q24H IV Last administered on 07/25/21at 07:58; Start 07/25/21 at 06:00; Stop 07/25/21 at 17:59; Status DC Hydromorphone HCl (Dilaudid) 0.5 mg PRN Q10MIN PRN IVP SEVERE PAIN 7-10, 2nd CHOICE; Start 07/25/21 at 06:00; Stop 07/25/21 at 20:00; Status DC Prochlorperazine Edisylate (Compazine) 5 mg PACU PRN PRN IVP NAUSEA, MRX1; Start 07/25/21 at 06:00; Stop 07/25/21 at 20:00; Status DC Propofol (Diprivan) 200 mg STK-MED ONCE IV ; Start 07/25/21 at 06:52; Stop 07/25/21 at 06:53; Status DC Fentanyl Citrate (Fentanyl 2ml Vial) 100 mcg STK-MED ONCE .ROUTE ; Start 07/25/21 at 06:53; Stop 07/25/21 at 06:53; Status DC Rocuronium [place] (Zemuron) 50 mg STK-MED ONCE .ROUTE ; Start 07/25/21 at 06:59; Stop 07/25/21 at 06:59; Status DC Ondansetron HCl (Zofran) 4 mg STK-MED ONCE .ROUTE ; Start 07/25/21 at 07:08; Stop 07/25/21 at 07:08; Status DC Dexamethasone Sodium Phosphate (Decadron) 4 mg STK-MED ONCE .ROUTE ; Start 07/25/21 at 07:08; Stop 07/25/21 at 07:08; Status DC Potassium Chloride/Water 100 ml @ 100 mls/hr Q1H IV Last administered on 07/25/21at 13:25; Start 07/25/21 at 08:00; Stop 07/25/21 at 13:59; Status DC Lidocaine HCl (Xylocaine 1% Pf 30ml Vial) 30 ml STK-MED ONCE .ROUTE ; Start 07/25/21 at 07:55; Stop 07/25/21 at 07:56; Status DC Ascorbic Acid (Vitamin C) 500 mg DAILY PO Last administered on 07/30/21at 10:01; Start 07/26/21 at 09:00 Thiamine Mononitrate (Vitamin B-1) 100 mg DAILY PO Last administered on 07/30/21at 10:02; Start 07/26/21 at 09:00 Rivaroxaban (Xarelto) 20 mg DAILYWSUP PO Last administered on 07/29/21at 18:31; Start 07/26/21 at 17:00 Pantoprazole Sodium (Protonix) 40 mg DAILYAC PO Last administered on 07/30/21at 06:23; Start 07/28/21 at 07:30 Active Scripts Active No Active Prescriptions or Reported Medications Vitals/I & O Vital Sign - Last 24 Hours 07/29/21 07/29/21 07/29/21 07/29/21 19:40 20:00 20:49 22:45 Temp 97.9 97.9 97.9 97.9 Pulse 85 85 78 Resp 20 18 B/P (MAP) 132/80 (97) 132/80 131/76 (94) Pulse Ox 95 96 O2 Delivery Room Air Room Air Room Air 07/30/21 07/30/21 07/30/21 07/30/21 03:10 07:00 08:00 10:01 Temp 97.4 98.1 97.4 98.1 Pulse 84 85 85 Resp 18 16 B/P (MAP) 122/74 (90) 114/75 (88) 114/75 Pulse Ox 95 95 O2 Delivery Room Air Room Air Room Air 07/30/21 11:00 Temp 97.9 97.9 Pulse 90 Resp 18 B/P (MAP) 128/83 (98) Pulse Ox 95 O2 Delivery Room Air Intake and Output 07/29/21 07/29/21 07/30/21 15:00 23:00 07:00 Intake Total 220 ml 100 ml 200 ml Output Total 500 ml Balance 220 ml -400 ml 200 ml Justifications for Admission Other Justification COVID-19 positive test (U07.1, COVID-19) with Acute Pneumonia (J12.89, Other viral pneumonia) (If respiratory failure or sepsis present, add as separate assessment) SUSAN HENSLEY MD Jul 30, 2021 15:35
[2021-07-30] MEDS: RIVAROXABAN 10 MG TABLET. PO SCH (18:23)
[2021-07-30 19:25] VITALS: BP 130/81
[2021-07-30] MEDS: ATORVASTATIN CALCIUM 20 MG TABLET PO SCH (21:00)
[2021-07-30 23:00] VITALS: BP 129/78
[2021-07-31 03:00] VITALS: BP 131/85
[2021-07-31 07:00] VITALS: BP 135/78
[2021-07-31 07:20] LABS: C-REACTIVE PROTEIN 27.5 mg/L (0-3.3); CALCIUM 7.5 mg/dL (8.5-10.1); CREATININE 0.5 mg/dL (0.7-1.3); POTASSIUM 3.9 mmol/L (3.5-5.1)
[2021-07-31] MEDS: INSULIN LISPRO 300 UNITS/3 ML VIAL. SQ SCH ×3 (08:00→17:00)
[2021-07-31] MEDS: PANTOPRAZOLE 40 MG TABLET.DR. PO SCH (10:19)
[2021-07-31] MEDS: ZINC SULFATE 220 MG CAPSULE. PO SCH (10:19)
[2021-07-31] MEDS: ASCORBIC ACID 500 MG TABLET PO SCH (10:19)
[2021-07-31] MEDS: ASPIRIN CHEWABLE 81 MG TABLET. PO SCH (10:19)
[2021-07-31] MEDS: METOPROLOL TART IMMED RELEASE 25 MG TABLET. PO SCH ×2 (10:20→21:00)
[2021-07-31] MEDS: THIAMINE 100 MG TABLET. PO SCH (10:20)
[2021-07-31 11:00] VITALS: BP 126/66
--- NOTE | 2021-07-31 11:39 | NUR ---
SW following. Discussed with RN, pt from home with family, room air, cardiac diet, COVID recovered. Per Marley (SS) pt needs to do daily therapy and then can discharge home. Med Assist trying to determine if pt qualifies for any insurance. SW will continue to follow.
--- NOTE | 2021-07-31 11:51 | PDOC ---
[employer] PROGRESS NOTE Date of Service DOS: DATE: 07/31/21 TIME: 11:46 Chief Complaint Chief Complaint Covid-19 Metabolic cephalopathy Possible Covid toes IVORY Lactic acidosis Dysphagia Malnutrition Heel erythema Poor nail care History of Present Illness History of Present Illness 07/31/2021 Patient seen and examined Discussed plan Chart reviewed Still feeling weak Mr Lambert is a 60-year-old male that presented 06/29/2021 via [facility] with decreased level of consciousness. Most of the history was obtained via EMS and patient's friend Reese [phone], who states that patient has been sick since about June 22 per Reese, he states that they both had cough cold headache sinus type pain. Per Reese's report patient is okay during the day and very alert and orientated and at night he has a decreased alertness. Patient is unable to help with exam when asked questions he does deny any past medical history, surgeries, or any other health conditions. Reese who is his roommate collaborates any information gotten from the patient. Accu-Chek per EMS was 250, room air sat in the room was 88 to 90%. 07/07: not much improved, about the same. cont current. PULM following. we have no clinimix, cont D5 fluid, 07/08: more alert, can try ST again, if able to sit up, still very weak 07/09: much more alert, bedside swallow of water ok, sits upright, much stronger, will try clears if able, ST to follow. toes are worsening, now black, hannah consult podiatry to follow, 07/10: More alert. Working with speech and swallowing today. Off O2. Less confused. Bilateral toe ulcers assessed by podiatry today. 07/11: More alert, eating. Arterial Doppler was left popliteal and severe distal disease bilaterally. Still has a little bit of a cough. Less confused today. 07/12: Eating reasonably well. Tentative plans for angiogram for consideration of limb salvage bilateral feet tomorrow. Discussed with cardiology. He will need significant follow-up care likely eventual amputations. 07/13: N.p.o. for angiogram today with bilateral SFA occlusive disease and left popliteal disease with left posterior tibial artery with some flow otherwise occlusive disease per cardiology. Discussed vascular surgery consultation for consideration of definitive revascularization with likely bilateral transmet atarsal amputations. Still with a little bit of a cough. Shortness of breath 07/14: Seen bedside. Having some pain in his bilateral extremities. Shortness of breath improved still with little bit of cough. Eating again. Amenable to revascularization and likely surgical debridement next week. Increasing thromboprophylaxis 07/15: Seen bedside. Not hypoxic. Cough is improving. He feels he is mental status is improved but he is definitely still mentating slowly. Complains of foot pain. He is contemplating surgical options but is okay with what ever the surgeons to choose for his likely lower extremity bypass tentatively planned for 07/17/202107/16: Bilateral foot pain still with cough but improving. Still is contemplating surgical options. 07/17: Patient off floor for surgery today. Chart evaluated. s/p bilateral pop/tibial thrombectomies with patch angioplasty. s/p RLE hematoma evacuation 07/18: Patient did and examined at bedside. He is postop day 1 from bilateral thrombectomies yesterday. Looks like he may need more surgery prior to discharge. Continue heparin drip. Suspect leukocytosis today secondary to surgery. Continue current. 07/19: Patient evaluated examined at bedside. He was working with physical therapy when seen. Continuing heparin drip. Recheck CBC today. Cardiology following vascular following. Will likely need further surgery prior to discharge. 07/20: Seen at bedside. Having RLE pain and had Hgb drop overnight. Will transfuse. Stop heparin drip for now. Seen by vascular, hematoma evacuation ordered. serial Hgb. 07/21: Patient evaluated examined at bedside. Hemoglobin improved up to 8.1 today. Underwent hematoma evacuation yesterday. Planning for further intervention next week. 07/22: Examine and evaluated at bedside. Resting in bed no major complaints. Hemoglobin stable. Appreciate Cardiology resuming heparin. Further intervention next week. 07/23: Seen at bedside no motor complaints. Hemoglobin still stable. No major clinical changes for today. Intervention this coming week. 07/24: Seen bedside. Has good appetite no cough shortness of breath or chest pain. Left heel with more gangrenous changes left feet. Plan for n.p.o. after midnight 07/25: Seen bedside. N.p.o. for bilateral foot debridement today. K3. Glucose low 100s. Has a friend visiting today. No chest pain or shortness of breath. Pain controlled. 2: Changes in the off heparin drip to Xarelto. No significant anticoagulation for 3 months then can start progressive ambulation with physical therapy with po stop shoe per vascular surgery recommendations. No shortness of breath or chest pain today just very weak. 2: Up to chair today, has more bilateral foot pain, now wearing post -op shoes. No SOB or cough. He is asking to get back into bed. Encouraged to continue trying to get on his feet. 07/28: In bed. Foot pain is improved from yesterday. No shortness of breath no cough. Still very weak even weak eating today. 07/29: Seen in bed. No foot pain today. No shortness of breath or cough. Still weak eating well. Not out of bed today. Glucose low 100s. 07/30: Seen in bed. Pain-free eating breakfast in bed. Still feeling weak has been up on his foot the last day. Glucose well controlled. Vitals/I&O Vitals/I&O: Vital Signs Date Time Temp Pulse Resp B/P (MAP) Pulse Ox O2 Delivery O2 Flow Rate FiO2 07/31/21 10:20 83 135/78 07/31/21 08:00 Room Air 07/31/21 07:00 97.5 16 97 97.5 07/30/21 20:00 6.0 I & O 07/30/21 07/30/21 07/31/21 15:00 23:00 07:00 Intake Total 240 ml 180 ml 120 ml Output Total 450 ml 150 ml Balance -210 ml 30 ml 120 ml Physical Exam Physical Exam: lethargic and weak General: mild distress Heart: Regular rate Lungs: Clear Abdomen: Normal bowel sounds Extremities: Other (Bilateral leg incisions intact without erythema or signs of infection. 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 No surrounding erythema or fluctuance at this time. The skin on the left forefoot continues to improve. There has been significant improvement since Saturday.) Skin: Other (No further hematoma accumulation) Labs Labs: Laboratory Tests Test 07/30/21 12:10 07/30/21 17:35 07/30/21 20:44 07/31/21 06:00 Glucose (Fingerstick) 124 mg/dL (70-99) 104 mg/dL (70-99) 114 mg/dL (70-99) Sodium Level 141 mmol/L (136-145) Potassium Level 3.9 mmol/L (3.5-5.1) Chloride Level 105 mmol/L (98-107) Carbon Dioxide Level 25 mmol/L (21-32) Anion Gap 11 (6-14) Blood Urea Nitrogen 13 mg/dL (8-26) Creatinine 0.5 mg/dL (0.7-1.3) Estimated GFR (Cockcroft-Gault) 169.0 Glucose Level 88 mg/dL (70-99) Calcium Level 7.5 mg/dL (8.5-10.1) C-Reactive Protein, Quantitative 27.5 mg/L (0-3.3) Test 07/31/21 07:53 07/31/21 11:25 Glucose (Fingerstick) 92 mg/dL (70-99) 158 mg/dL (70-99) Assessment and Plan Assessmemt and Plan Problems Medical Problems: (1) Dehydration Status: Acute (2) Mental status alteration Status: Acute (3) Pneumonia Status: Acute Covid-19 Metabolic cephalopathy Possible Covid toes IVORY Lactic acidosis Dysphagia Malnutrition Heel erythema Poor nail care Plan Covid protocol Wound care Trend labs Encourage p.o. intake Home meds DVT prophylaxis Full code Discharge disposition pending although I would like to send him to [facility], but as he doesn't have insurance Discussed with child welfare caseworker Comment Review of Relevant I have reviewed the following items amanda (where applicable) has been applied. Justifications for Admission Other Justification COVID-19 positive test (U07.1, COVID-19) with Acute Pneumonia (J12.89, Other viral pneumonia) (If respiratory failure or sepsis present, add as separate assessment) GERDA RASMUSSEN III DO Jul 31, 2021 11:51
[2021-07-31 15:00] VITALS: BP 119/69
[2021-07-31] MEDS: RIVAROXABAN 10 MG TABLET. PO SCH (18:15)
[2021-07-31 19:00] VITALS: BP 127/67
[2021-07-31] MEDS: ATORVASTATIN CALCIUM 20 MG TABLET PO SCH (21:00)
[2021-07-31 23:00] VITALS: BP 118/70
[2021-08-01 03:04] VITALS: BP 119/75
[2021-08-01 07:00] VITALS: BP 130/76
[2021-08-01] MEDS: INSULIN LISPRO 300 UNITS/3 ML VIAL. SQ SCH ×3 (08:00→17:00)
--- NOTE | 2021-08-01 10:42 | PDOC ---
[employer] [facility] PROGRESS NOTE Date of Service DOS: DATE: 08/01/21 TIME: 10:40 Chief Complaint Chief Complaint Covid-19 Metabolic cephalopathy Possible Covid toes IVORY Lactic acidosis Dysphagia Malnutrition Heel erythema Poor nail care History of Present Illness History of Present Illness 08/01/2021 Patient seen and examined He seems depressed and very weak He has heel protectors on both the toes that are exposed are extremely gangrenous and black and demarcated Discussed with the wound care nurse He explains that vascular surgery is awaiting the complete demarcation to finish up and then they will consider surgery at that time Chart reviewed Discussed with RN 07/31/2021 Patient seen and examined Discussed plan Chart reviewed Still feeling weak Mr Lambert is a 60-year-old male that presented 06/29/2021 via [facility] with decreased level of consciousness. Most of the history was obtained via EMS and patient's friend Reese [phone], who states that patient has been sick since about June 22 per Reese, he states that they both had cough cold headache sinus type pain. Per Reese's report patient is okay during the day and very alert and orientated and at night he has a decreased alertness. Patient is unable to help with exam when asked questions he does deny any past medical history, surgeries, or any other health conditions. Reese who is his roommate collaborates any information gotten from the patient. Accu-Chek per EMS was 250, room air sat in the room was 88 to 90%. 07/07: not much improved, about the same. cont current. PULM following. we have no clinimix, cont D5 fluid, 07/08: more alert, can try ST again, if able to sit up, still very weak 07/09: much more alert, bedside swallow of water ok, sits upright, much stronger, will try clears if able, ST to follow. toes are worsening, now black, hannah consult podiatry to follow, 07/10: More alert. Working with speech and swallowing today. Off O2. Less confused. Bilateral toe ulcers assessed by podiatry today. 07/11: More alert, eating. Arterial Doppler was left popliteal and severe distal disease bilaterally. Still has a little bit of a cough. Less confused today. 07/12: Eating reasonably well. Tentative plans for angiogram for consideration of limb salvage bilateral feet tomorrow. Discussed with cardiology. He will need significant follow-up care likely eventual amputations. 07/13: N.p.o. for angiogram today with bilateral SFA occlusive disease and left popliteal disease with left posterior tibial artery with some flow otherwise occlusive disease per cardiology. Discussed vascular surgery consultation for consideration of definitive revascularization with likely bilateral transmetatar belen amputations. Still with a little bit of a cough. Shortness of breath 07/14: Seen bedside. Having some pain in his bilateral extremities. Shortness of breath improved still with little bit of cough. Eating again. Amenable to revascularization and likely surgical debridement next week. Increasing thromboprophylaxis 07/15: Seen bedside. Not hypoxic. Cough is improving. He feels he is mental status is improved but he is definitely still mentating slowly. Complains of foot pain. He is contemplating surgical options but is okay with what ever the surgeons to choose for his likely lower extremity bypass tentatively planned for 07/17/202107/16: Bilateral foot pain still with cough but improving. Still is contemplating surgical options. 07/17: Patient off floor for surgery today. Chart evaluated. s/p bilateral pop/tibial thrombectomies with patch angioplasty. s/p RLE hematoma evacuation 07/18: Patient did and examined at bedside. He is postop day 1 from bilateral thrombectomies yesterday. Looks like he may need more surgery prior to discharge. Continue heparin drip. Suspect leukocytosis today secondary to surgery. Continue current. 07/19: Patient evaluated examined at bedside. He was working with physical therapy when seen. Continuing heparin drip. Recheck CBC today. Cardiology following vascular following. Will likely need further surgery prior to discharge. 07/20: Seen at bedside. Having RLE pain and had Hgb drop overnight. Will transfuse. Stop heparin drip for now. Seen by vascular, hematoma evacuation ordered. serial Hgb. 07/21: Patient evaluated examined at bedside. Hemoglobin improved up to 8.1 today. Underwent hematoma evacuation yesterday. Planning for further intervention next week. 07/22: Examine and evaluated at bedside. Resting in bed no major complaints. Hemoglobin stable. Appreciate Cardiology resuming heparin. Further intervention next week. 07/23: Seen at bedside no motor complaints. Hemoglobin still stable. No major clinical changes for today. Intervention this coming week. 07/24: Seen bedside. Has good appetite no cough shortness of breath or chest pain. Left heel with more gangrenous changes left feet. Plan for n.p.o. after midnight 07/25: Seen bedside. N.p.o. for bilateral foot debridement today. K3. Glucose low 100s. Has a friend visiting today. No chest pain or shortness of breath. Pain controlled. 07/26: Changes in the off heparin drip to Xarelto. No significant anticoagulation for 3 months then can start progressive ambulation with physical therapy with postop shoe per vascular surgery recommendations. No shortness of breath or chest pain today just very weak. 07/27: Up to chair today, has more bilateral foot pain, now wearing post -op shoes. No SOB or cough. He is asking to get back into bed. Encouraged to cont inue trying to get on his feet. 07/28: In bed. Foot pain is improved from yesterday. No shortness of breath no cough. Still very weak even weak eating today. 07/29: Seen in bed. No foot pain today. No shortness of breath or cough. Still weak eating well. Not out of bed today. Glucose low 100s. 07/30: Seen in bed. Pain-free eating breakfast in bed. Still feeling weak has been up on his foot the last day. Glucose well controlled. Vitals/I&O Vitals/I&O: Vital Signs Date Time Temp Pulse Resp B/P (MAP) Pulse Ox O2 Delivery O2 Flow Rate FiO2 08/01/21 07:00 98.3 74 18 130/76 (94) 98 Room Air 98.3 I & O 07/31/21 07/31/21 08/01/21 15:00 23:00 07:00 Intake Total 120 ml 240 ml Output Total 200 ml 200 ml 300 ml Balance -80 ml 40 ml -300 ml Physical Exam Physical Exam: lethargic and weak General: mild distress Heart: Regular rate Lungs: Clear Abdomen: Normal bowel sounds Extremities: Other (Severely black toes please see the pictures) Skin: Other (No further hematoma accumulation) Labs Labs: Laboratory Tests Test 07/31/21 11:25 07/31/21 16:45 07/31/21 20:40 08/01/21 07:30 Glucose (Fingerstick) 158 mg/dL (70-99) 96 mg/dL (70-99) 113 mg/dL (70-99) 98 mg/dL (70-99) Assessment and Plan Assessmemt and Plan Problems Medical Problems: (1) Dehydration Status: Acute (2) Mental status alteration Status: Acute (3) Pneumonia Status: Acute Covid-19 Metabolic cephalopathy Possible Covid toes IVORY Lactic acidosis Dysphagia Malnutrition Heel erythema Poor nail care Plan He eventually needs to have amputations awaiting for complete demarcation for now continue the following; Covid protocol Wound care Trend labs Encourage p.o. intake Home meds DVT prophylaxis Full code Discharge disposition pending although I would like to send him to [facility], but as he doesn't have insurance Discussed with human services case manager Comment Review of Relevant I have reviewed the following items amanda (where applicable) has been applied. Justifications for Admission Other Justification COVID-19 positive test (U07.1, COVID-19) with Acute Pneumonia (J12.89, Other viral pneumonia) (If respiratory failure or sepsis present, add as separate assessment) GERDA RASMUSSEN III DO Aug 01, 2021 10:42
[2021-08-01 11:00] VITALS: BP 119/77
--- NOTE | 2021-08-01 11:41 | PDOC ---
FERMIN BARNES WRECKER OPERATOR 08/01/21 1141: CARDIO Progress Notes Date and Time Date of Service 08/01/2021 Time of Evaluation 1115 Subjective Subjective: No Chest Pain, No shortness of breath, No Palpitations Vitals Vitals Vital Signs Date Time Temp Pulse Resp B/P (MAP) Pulse Ox O2 Delivery O2 Flow Rate FiO2 08/01/21 08:00 Room Air 08/01/21 07:00 98.3 74 18 130/76 (94) 98 98.3 Weight Weight [ ] Input and Output Intake and Output Intake and Output 08/01/21 07:00 Intake Total 360 ml Output Total 700 ml Balance -340 ml Intake Oral 360 ml Output Urine Total 700 ml # Voids 1 # Bowel Movements 2 Laboratory Labs Laboratory Tests Test 07/31/21 16:45 07/31/21 20:40 08/01/21 07:30 Glucose (Fingerstick) 96 mg/dL (70-99) 113 mg/dL (70-99) 98 mg/dL (70-99) Physical Exam HEENT: Neck Supple W Full Motion Chest: Symmetric LUNGS: Clear to Auscultation Heart: RRR (SR) Abdomen: Soft N/T Extremities: Other (trace bilateral LE edema. eschar of bilateral toes and heels ) Neurology: alert, oriented, follow commands Assessment Assessment 1. Acute respiratory failure due to acute COVID infection. improved. now on RA 2. Encephalopathy; CT head without acute findings. improved 3. PAD, subacute thrombotic occlusion of the bilateral popliteal and proximal tibial vessels. s/p bilateral pop/tibial thrombectomy with patch angioplasty 4. 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 Plans to allow more time for healing 5. Hypertension; controlled 6. Anemia requiring transfusion. hgb now stable 7. RLE hematoma; s/p evacuation Recommendations Secondary prevention measures Continue OAC with Xarelto. Will provide with samples Consider outpatient ischemia evaluation SS consult Justicifation of Admission Dx: Justifications for Admission: Justification of Admission Dx: Yes MALAIKA HOLLIS MD 08/01/212035: CARDIO Progress Notes Plan Plan Patient seen and examined. Agree with above nurse practitioner note. No acute events overnight. Discussed with patient and family at bedside. No specific cardiovascular issues at this time. Plan for outpatient ischemic evaluation based on symptomatology upon conclusion of the rehabilitation FERMIN BARNES APRN Aug 01, 2021 11:41 MALAIKA HOLLIS MD Aug 01, 2021 20:36
[2021-08-01] MEDS: THIAMINE 100 MG TABLET. PO SCH (12:39)
[2021-08-01] MEDS: ASPIRIN CHEWABLE 81 MG TABLET. PO SCH (12:40)
[2021-08-01] MEDS: METOPROLOL TART IMMED RELEASE 25 MG TABLET. PO SCH ×2 (12:41→21:37)
[2021-08-01] MEDS: PANTOPRAZOLE 40 MG TABLET.DR. PO SCH (12:41)
[2021-08-01] MEDS: ASCORBIC ACID 500 MG TABLET PO SCH (12:41)
[2021-08-01] MEDS: ZINC SULFATE 220 MG CAPSULE. PO SCH (12:41)
[2021-08-01 15:00] VITALS: BP 115/65
[2021-08-01 19:00] VITALS: BP 130/70
[2021-08-01] MEDS: RIVAROXABAN 10 MG TABLET. PO SCH (19:58)
[2021-08-01] MEDS: ATORVASTATIN CALCIUM 20 MG TABLET PO SCH (21:00)
[2021-08-01 22:45] VITALS: BP 119/70
[2021-08-02 03:14] VITALS: BP 110/70
[2021-08-02 07:00] VITALS: BP 125/72
--- NOTE | 2021-08-02 07:58 | PDOC ---
[facility] [facility] PROGRESS NOTE Date of Service DOS: DATE: 08/02/21 TIME: 07:57 Chief Complaint Chief Complaint Covid-19 Metabolic cephalopathy Possible Covid toes IVORY Lactic acidosis Dysphagia Malnutrition Heel erythema Poor nail care History of Present Illness History of Present Illness 08/02/2021 Patient seen and examined Discussed with RN Chart reviewed He is resting with no apparent distress 08/01/2021 Patient seen and examined He seems depressed and very weak He has heel protectors on both the toes that are exposed are extremely gangrenous and black and demarcated Discussed with the wound care nurse He explains that vascular surgery is awaiting the complete demarcation to finish up and then they will consider surgery at that time Chart reviewed Discussed with RN 07/31/2021 Patient seen and examined Discussed plan Chart reviewed Still feeling weak Mr Lambert is a 60-year-old male that presented 06/29/2021 via [facility] with decreased level of consciousness. Most of the history was obtained via EMS and patient's friend Reese [phone], who states that patient has been sick since about June 22 per Reese, he states that they both had cough cold headache sinus type pain. Per Reese's report patient is okay during the day and very alert and orientated and at night he has a decreased alertness. Patient is unable to help with exam when asked questions he does deny any past medical history, surgeries, or any other health conditions. Reese who is his roommate collaborates any information gotten from the patient. Accu-Chek per EMS was 250, room air sat in the room was 88 to 90%. 07/07: not much improved, about the same. cont current. PULM following. we have no clinimix, cont D5 fluid, 07/08: more alert, can try ST again, if able to sit up, still very weak 07/09: much more alert, bedside swallow of water ok, sits upright, much stronger, will try clears if able, ST to follow. toes are worsening, now black, hannah consult podiatry to follow, 07/10: More alert. Working with speech and swallowing today. Off O2. Less confused. Bilateral toe ulcers assessed by podiatry today. 07/11: More alert, eating. Arterial Doppler was left popliteal and severe distal disease bilaterally. Still has a little bit of a cough. Less confused today. 07/12: Eating reasonably well. Tentative plans for angiogram for consideration of limb salvage bilateral feet tomorrow. Discussed with cardiology. He will need significant follow-up care likely eventual amputations. 07/13: N.p.o. for angiogram today with bilateral SFA occlusive disease and left popliteal disease with left posterior tibial artery with some flow otherwise occlusive disease per cardiology. Discussed vascular surgery consultation for consideration of definitive revascularization with likely bilateral transmetatarsal amputations. Still with a little bit of a cough. Shortness of breath 07/14: Seen bedside. Having some pain in his bilateral extremities. Shortness of breath improved still with little bit of cough. Eating again. Amenable to revascularization and likely surgical debridement next week. Increasing thromboprophylaxis 07/15: Seen bedside. Not hypoxic. Cough is improving. He feels he is mental status is improved but he is definitely still mentating slowly. Complains of foot pain. He is contemplating surgical options but is okay with what ever the surgeons to choose for his likely lower extremity bypass tentatively planned for 07/17/202107/16: Bilateral foot pain still with cough but improving. Still is contemplating surgical options. 07/17: Patient off floor for surgery today. Chart evaluated. s/p bilateral pop/tibial thrombectomies with patch angioplasty. s/p RLE hematoma evacuation 07/18: Patient did and examined at bedside. He is postop day 1 from bilateral thrombectomies yesterday. Looks like he may need more surgery prior to discharge. Continue heparin drip. Suspect leukocytosis today secondary to surgery. Continue current. 07/19: Patient evaluated examined at bedside. He was working with physical therapy when seen. Continuing heparin drip. Recheck CBC today. Cardiology following vascular following. Will likely need further surgery prior to discharge. 07/20: Seen at bedside. Having RLE pain and had Hgb drop overnight. Will transfuse. Stop heparin drip for now. Seen by vascular, hematoma evacuation ordered. serial Hgb. 07/21: Patient evaluated examined at bedside. Hemoglobin improved up to 8.1 today. Underwent hematoma evacuation yesterday. Planning for further intervention next week. 07/22: Examine and evaluated at bedside. Resting in bed no major complaints. Hemoglobin stable. Appreciate Cardiology resuming heparin. Further intervention next week. 07/23: Seen at bedside no motor complaints. Hemoglobin still stable. No major clinical changes for today. Intervention this coming week. 07/24: Seen bedside. Has good appetite no cough shortness of breath or chest pain. Left heel with more gangrenous changes left feet. Plan for n.p.o. after midnight 07/25: Seen bedside. N.p.o. for bilateral foot debridement today. K3. Glucose low 100s. Has a friend visiting today. No chest pain or shortness of breath. Pain controlled. 07/26: Changes in the off heparin drip to Xarelto. No significant anticoagulation for 3 months then can start progressive ambulation with physical therapy with postop shoe per vascular surgery recommendations. No shortness of breath or chest pain today just very weak. 2: Up to chair today, has more bilateral foot pain, now wearing post -op shoes. No SOB or cough. He is asking to get back into bed. Encouraged to continue trying to get on his feet. 07/28: In bed. Foot pain is improved from yesterday. No shortness of breath no cough. Still very weak even weak eating today. 07/29: Seen in bed. No foot pain today. No shortness of breath or cough. Still weak eating well. Not out of bed today. Glucose low 100s. 07/30: Seen in bed. Pain-free eating breakfast in bed. Still feeling weak has been up on his foot the last day. Glucose well controlled. Vitals/I&O Vitals/I&O: Vital Signs Date Time Temp Pulse Resp B/P (MAP) Pulse Ox O2 Delivery O2 Flow Rate FiO2 08/02/21 07:00 97.3 85 18 125/72 (89) 97 Room Air 97.3 08/01/21 20:00 6.0 I & O 08/01/21 08/01/21 08/02/21 15:00 23:00 07:00 Output Total 250 ml 200 ml 0 ml Balance -250 ml -200 ml 0 ml Physical Exam Physical Exam: lethargic and weak General: No acute distress, Other (Resting) Heart: Regular rate Lungs: Clear Abdomen: Normal bowel sounds Extremities: Other (Severely black toes please see the pictures) Skin: Other (No further hematoma accumulation) Labs Labs: Laboratory Tests Test 08/01/21 12:18 08/01/21 17:19 2 07:46 Glucose (Fingerstick) 125 mg/dL (70-99) 131 mg/dL (70-99) 121 mg/dL (70-99) Assessment and Plan Assessmemt and Plan Problems Medical Problems: (1) Dehydration Status: Acute (2) Mental status alteration Status: Acute (3) Pneumonia Status: Acute Covid-19 Metabolic cephalopathy Possible Covid toes IVORY Lactic acidosis Dysphagia Malnutrition Heel erythema Poor nail care Plan He eventually needs to have amputations awaiting for complete demarcation for now continue the following; Covid protocol Wound care Continue Xarelto per cardiology Eventual outpatient cardiac ischemic work-up Trend labs Encourage p.o. intake Home meds DVT prophylaxis Full code Discharge disposition pending although I would like to send him to skilled, but as he doesn't have insurance Discussed with therapeutic case manager Comment Review of Relevant I have reviewed the following items amanda (where applicable) has been applied. Justifications for Admission Other Justification COVID-19 positive test (U07.1, COVID-19) with Acute Pneumonia (J12.89, Other viral pneumonia) (If respiratory failure or sepsis present, add as separate assessment) GERDA RASMUSSEN III DO Aug 02, 2021 07:58
[2021-08-02] MEDS: INSULIN LISPRO 300 UNITS/3 ML VIAL. SQ SCH ×3 (08:00→17:00)
[2021-08-02] MEDS: ASPIRIN CHEWABLE 81 MG TABLET. PO SCH (09:57)
[2021-08-02] MEDS: THIAMINE 100 MG TABLET. PO SCH (09:58)
[2021-08-02] MEDS: SENNOSIDES 8.6 MG TABLET PO PRN (09:58)
[2021-08-02] MEDS: PANTOPRAZOLE 40 MG TABLET.DR. PO SCH (09:58)
[2021-08-02] MEDS: DOCUSATE SODIUM 100 MG CAPSULE. PO PRN (09:58)
[2021-08-02] MEDS: ZINC SULFATE 220 MG CAPSULE. PO SCH (09:58)
[2021-08-02] MEDS: METOPROLOL TART IMMED RELEASE 25 MG TABLET. PO SCH ×2 (09:59→21:00)
[2021-08-02] MEDS: ASCORBIC ACID 500 MG TABLET PO SCH (09:59)
[2021-08-02 10:55] VITALS: BP 122/69
--- NOTE | 2021-08-02 11:40 | NUR ---
SW following. Discussed with RN, surgery being rediscussed. Pt will discharge home when medically stable. Continue to work with therapy. SW will continue to follow.
[2021-08-02] MEDS: oxyCODONE/APAP 5/325 1 TAB TABLET PO PRN (14:13)
[2021-08-02 15:00] VITALS: BP 105/69
--- NOTE | 2021-08-02 16:00 | NUR ---
Wound Care Wound Type/Assessment: Pt seen for wound care follow up for multiple wounds, see wound assessments. Pt's toes on bilateral feet are black and necrotic with some purple discoloration in the periwound, bilateral heels with necrotic/eschar covering, skin intact, no drainage noted. Pt's bilateral buttocks peeling and abraded, small open wound noted, redness and moisture with satellite rash on buttocks suggesting yeast, would also benefit from Nystatin powder mixed with calazime cream. Treatment Recommendations/Plan: Continue painting toes and heels with betadine until Vascular surgery next week, weave Aquacel AG strips between toes, Heel medix or rooke boots to BLE. protective ointment to buttocks, Nystatin to reddened groin areas. Education provided: to pt re: POC Offloading surface/device: heel medix boots, pt turned to left side at this time. Recommended Referrals/Tests: defer to Vascular Discharge Recommendations for dressings: defer to Vascular who will follow up with patient in outpatient basis for amputation after tissue has fully demarcated
[2021-08-02] MEDS: RIVAROXABAN 10 MG TABLET. PO SCH (17:38)
[2021-08-02 19:00] VITALS: BP 100/58
[2021-08-02] MEDS: ATORVASTATIN CALCIUM 20 MG TABLET PO SCH (21:36)
[2021-08-02 23:00] VITALS: BP 120/71
[2021-08-03 04:22] VITALS: BP 123/66
[2021-08-03 07:00] VITALS: BP 132/69
[2021-08-03] MEDS: ZINC SULFATE 220 MG CAPSULE. PO SCH (09:02)
[2021-08-03] MEDS: SENNOSIDES 8.6 MG TABLET PO PRN (09:02)
[2021-08-03] MEDS: THIAMINE 100 MG TABLET. PO SCH (09:02)
[2021-08-03] MEDS: DOCUSATE SODIUM 100 MG CAPSULE. PO PRN (09:03)
[2021-08-03] MEDS: ASCORBIC ACID 500 MG TABLET PO SCH (09:03)
[2021-08-03] MEDS: PANTOPRAZOLE 40 MG TABLET.DR. PO SCH (09:03)
[2021-08-03] MEDS: METOPROLOL TART IMMED RELEASE 25 MG TABLET. PO SCH ×2 (09:03→21:13)
[2021-08-03] MEDS: INSULIN LISPRO 300 UNITS/3 ML VIAL. SQ SCH ×3 (09:04→17:00)
[2021-08-03] MEDS: ASPIRIN CHEWABLE 81 MG TABLET. PO SCH (09:05)
[2021-08-03] MEDS: oxyCODONE/APAP 5/325 1 TAB TABLET PO PRN (09:16)
--- NOTE | 2021-08-03 10:15 | PDOC ---
[facility] [facility] PROGRESS NOTE Date of Service DOS: DATE: 08/03/21 TIME: 10:12 Chief Complaint Chief Complaint Covid-19 Metabolic cephalopathy Possible Covid toes IVORY Lactic acidosis Dysphagia Malnutrition Heel erythema Poor nail care History of Present Illness History of Present Illness 08/03/2021 Patient seen and examined Laying comfortably in bed with flat affect Bilateral heel protectors present; Dry gangrene present on bilateral toes and heels; Discussed with the wound care nurse Discussed with patient the need for vascular surgery input regarding foot surgery and potential bilateral BKA Chart reviewed Discussed with RN 08/02/2021 Patient seen and examined Discussed with RN Chart reviewed He is resting with no apparent distress 08/01/2021 Patient seen and examined He seems depressed and very weak He has heel protectors on both the toes that are exposed are extremely gangrenous and black and demarcated Discussed with the wound care nurse He explains that vascular surgery is awaiting the complete demarcation to finish up and then they will consider surgery at that time Chart reviewed Discussed with RN 07/31/2021 Patient seen and examined Discussed plan Chart reviewed Still feeling weak Mr Lambert is a 60-year-old male that presented 06/29/2021 via [facility] with decreased level of consciousness. Most of the history was obtained via EMS and patient's friend Reese [phone], who states that patient has been sick since about June 22 per Reese, he states that they both had cough cold headache sinus type pain. Per Reese's report patient is okay during the day and very alert and orientated and at night he has a decreased alertness. Patient is unable to help with exam when asked questions he does deny any past medical history, surgeries, or any other health conditions. Reese who is his roommate collaborates any information gotten from the patient. Accu-Chek per EMS was 250, room air sat in the room was 88 to 90%. 07/07: not much improved, about the same. cont current. PULM following. we have no clinimix, cont D5 fluid, 07/08: more alert, can try ST again, if able to sit up, still very weak 07/09: much more alert, bedside swallow of water ok, sits upright, much stronger, will try clears if able, ST to follow. toes are worsening, now black, hannah consult podiatry to follow, 1/17: More alert. Working with speech and swallowing today. Off O2. Less confused. Bilateral toe ulcers assessed by podiatry today. 07/11: More alert, eating. Arterial Doppler was left popliteal and severe distal disease bilaterally. Still has a little bit of a cough. Less confused today. 07/12: Eating reasonably well. Tentative plans for angiogram for consideration of limb salvage bilateral feet tomorrow. Discussed with cardiology. He will need significant follow-up care likely eventual amputations. 07/13: N.p.o. for angiogram today with bilateral SFA occlusive disease and left popliteal disease with left posterior tibial artery with some flow otherwise occlusive disease per cardiology. Discussed vascular surgery consultation for consideration of definitive revascularization with likely bilateral transmetatarsal amputations. Still with a little bit of a cough. Shortness of breath 07/14: Seen bedside. Having some pain in his bilateral extremities. Shortness of breath improved still with little bit of cough. Eating again. Amenable to revascularization and likely surgical debridement next week. Increasing thro mboprophylaxis 07/15: Seen bedside. Not hypoxic. Cough is improving. He feels he is mental status is improved but he is definitely still mentating slowly. Complains of foot pain. He is contemplating surgical options but is okay with what ever the surgeons to choose for his likely lower extremity bypass tentatively planned for 07/17/202107/16: Bilateral foot pain still with cough but improving. Still is contemplating surgical options. 07/17: Patient off floor for surgery today. Chart evaluated. s/p bilateral pop/tibial thrombectomies with patch angioplasty. s/p RLE hematoma evacuation 07/18: Patient did and examined at bedside. He is postop day 1 from bilateral thrombectomies yesterday. Looks like he may need more surgery prior to discharge. Continue heparin drip. Suspect leukocytosis today secondary to surgery. Continue current. 07/19: Patient evaluated examined at bedside. He was working with physical therapy when seen. Continuing heparin drip. Recheck CBC today. Cardiology following vascular following. Will likely need further surgery prior to discharge. 07/20: Seen at bedside. Having RLE pain and had Hgb drop overnight. Will transfuse. Stop heparin drip for now. Seen by vascular, hematoma evacuation ordered. serial Hgb. 07/21: Patient evaluated examined at bedside. Hemoglobin improved up to 8.1 today. Underwent hematoma evacuation yesterday. Planning for further i ntervention next week. 07/22: Examine and evaluated at bedside. Resting in bed no major complaints. Hemoglobin stable. Appreciate Cardiology resuming heparin. Further intervention next week. 07/23: Seen at bedside no motor complaints. Hemoglobin still stable. No major clinical changes for today. Intervention this coming week. 07/24: Seen bedside. Has good appetite no cough shortness of breath or chest pain. Left heel with more gangrenous changes left feet. Plan for n.p.o. after midnight 07/25: Seen bedside. N.p.o. for bilateral foot debridement today. K3. Glucose low 100s. Has a friend visiting today. No chest pain or shortness of breath. Pain controlled. 07/26: Changes in the off heparin drip to Xarelto. No significant anticoagulation for 3 months then can start progressive ambulation with physical therapy with postop shoe per vascular surgery recommendations. No shortness of breath or chest pain today just very weak. 23: Up to chair today, has more bilateral foot pain, now wearing post -op meagan es. No SOB or cough. He is asking to get back into bed. Encouraged to continue trying to get on his feet. 2: In bed. Foot pain is improved from yesterday. No shortness of breath no cough. Still very weak even weak eating today. 07/29: Seen in bed. No foot pain today. No shortness of breath or cough. Still weak eating well. Not out of bed today. Glucose low 100s. 07/30: Seen in bed. Pain-free eating breakfast in bed. Still feeling weak has been up on his foot the last day. Glucose well controlled. Vitals/I&O Vitals/I&O: Vital Signs Date Time Temp Pulse Resp B/P (MAP) Pulse Ox O2 Delivery O2 Flow Rate FiO2 08/03/21 09:16 97 Room Air 08/03/21 09:03 87 132/69 08/03/21 07:00 98.2 16 98.2 I & O 08/02/21 08/02/21 08/03/21 15:00 23:00 07:00 Output Total 200 ml 0 ml Balance -200 ml 0 ml Physical Exam Physical Exam: lethargic and weak General: Alert, Oriented X3, Cooperative, No acute distress, Other (Resting) Heart: Regular rate Lungs: Clear Abdomen: Normal bowel sounds Extremities: Other (Severely black toes please see the pictures) Skin: Other (No further hematoma accumulation) Labs Labs: Laboratory Tests Test 08/02/21 11:47 08/02/21 16:45 08/02/21 20:08 08/03/21 07:32 Glucose (Fingerstick) 161 mg/dL (70-99) 129 mg/dL (70-99) 134 mg/dL (70-99) 105 mg/dL (70-99) Assessment and Plan Assessmemt and Plan Problems Medical Problems: (1) Dehydration Status: Acute (2) Mental status alteration Status: Acute (3) Pneumonia Status: Acute Covid-19 Metabolic cephalopathy Possible Covid toes IVORY Lactic acidosis Dysphagia Malnutrition Heel erythema Poor nail care Plan Wait for demarcation of gangrene on bilateral lower extremities; Consider bilateral BKA Covid protocol Wound care Consult vascular surgery regarding treatment options for bilateral foot gangrene Continue Xarelto per cardiology Eventual outpatient cardiac ischemic work-up Trend labs Encourage p.o. intake Home meds DVT prophylaxis Full code Discharge disposition pending although I would like to send him to skilled, but as he doesn't have insurance Discussed with field nurse case manager Comment Review of Relevant I have reviewed the following items amanda (where applicable) has been applied. Justifications for Admission Other Justification COVID-19 positive test (U07.1, COVID-19) with Acute Pneumonia (J12.89, Other viral pneumonia) (If respiratory failure or sepsis present, add as separate assessment) GERDA RASMUSSEN III DO Aug 03, 2021 10:15
[2021-08-03 11:00] VITALS: BP 133/67
--- NOTE | 2021-08-03 11:20 | PDOC ---
FERMIN BARNES BROADCAST TRANSMITTER OPERATOR 08/03/21 1120: CARDIO Progress Notes Date and Time Date of Service 08/03/2021 Time of Evaluation 1020 Subjective Subjective: No Chest Pain, No shortness of breath, No Palpitations Vitals Vitals Vital Signs Date Time Temp Pulse Resp B/P (MAP) Pulse Ox O2 Delivery O2 Flow Rate FiO2 08/03/21 11:00 98.4 91 16 133/67 (89) 97 98.4 08/03/21 09:16 Room Air Weight Weight [ ] Input and Output Intake and Output Intake and Output 08/03/21 07:00 Output Total 200 ml Balance -200 ml Output Urine Total 200 ml # Voids 1 # Bowel Movements 1 Laboratory Labs Laboratory Tests Test 08/02/21 11:47 08/02/21 16:45 08/02/21 20:08 08/03/21 07:32 Glucose (Fingerstick) 161 mg/dL (70-99) 129 mg/dL (70-99) 134 mg/dL (70-99) 105 mg/dL (70-99) Physical Exam HEENT: Neck Supple W Full Motion Chest: Symmetric LUNGS: Clear to Auscultation Heart: RRR (SR) Abdomen: Soft N/T Extremities: Other (trace bilateral LE edema. eschar of bilateral toes and heels ) Neurology: alert, oriented, follow commands Assessment Assessment 1. Acute respiratory failure due to acute COVID infection. improved. now on RA 2. Encephalopathy; CT head without acute findings. improved 3. PAD, subacute thrombotic occlusion of the bilateral popliteal and proximal tibial vessels. s/p bilateral pop/tibial thrombectomy with patch angioplasty 4. 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 Plans to allow more time for healing 5. Hypertension; controlled 6. Anemia requiring transfusion. hgb now stable 7. RLE hematoma; s/p evacuation Recommendations Secondary prevention measures No changes. Continue OAC with Xarelto. Will provide with samples Consider outpatient ischemia evaluation SS consult Justicifation of Admission Dx: Justifications for Admission: Justification of Admission Dx: Yes MALAIKA HOLLIS MD 08/03/21 1621: CARDIO Progress Notes Plan Plan The patient was seen and interviewed as well as examined at the bedside. The chart was reviewed. The case was discussed. Agree with the plan of care. FERMIN BARNES APRN Aug 03, 2021 11:20 MALAIKA HOLLIS MD Aug 03, 2021 16:21
--- NOTE | 2021-08-03 12:09 | PDOC ---
Provider Note Date of Service: DATE: 08/03/21 TIME: 11:55 Provider Note Provider Note Vascular S: Patient resting in bed he is without complaints. He is able to ambulate short distances with walker, states "I am having trouble with my balance". O: Awake and alert VSS, afebrile Respirations nonlabored, room air Right leg incision is clean, dry and intact. Calf soft. Palpable PT Left leg incision is clean, dry and intact . Calf soft. Strong doppler signal PT His feet are warm bilaterally, toes seem to be slowly demarcating. Mild improvement in plantar surface of left foot. Heel eschar remains unchanged. No bogginess or fluctuance. He is able to dorsiflex and plantar flex both feet. A/P: 1. 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 2. History of COVID pneumonia. 3. 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 s/p bilateral pop/tibial thrombectomies with patch angioplasty s/p RLE hematoma evacuation He is doing well post procedures. He continues to have gangrenous changes and demarcation to bilateral feet and heels. discussed plan of care with Dr. Espino. He recommends we continue to wait for further demarcation. It is likely with off-loading his heel eschar will slough and more tissue will improve on plantar surface of left foot, giving him a better change of a TMA healing. This may take several weeks to months. - Continue anticoagulation - Keep incisions clean and dry - Continue to off-load heels. - Continue PT/OT, no restrictions, may place pressure on heels while walking - Will plan to see him in the office in 2 weeks - Discussed with Mirella SANTOS He is doing well following bilateral popliteal and tibial artery thrombectomy. He has gangrenous changes to toes on both feet and both heels. The tissue continues to demarcate and improve at the edges. He was scheduled for left transmetatarsal amputation and right toe amputations today, but I feel that there is a chance that he may be able to preserve more of his left forefoot if we allow tissue more time for healing. There is no evidence of ongoing i nfection in his feet. Surgery canceled for today due to improvement in his forefoot skin on the left. May continue physical and occupational therapy. Would use postop shoes for ambulation and PRAFO boots while not walking to protect heels. Resume heparin infusion, but may transition to oral anticoagulation. He will need at least 3 to 6 months of oral anticoagulation. We will plan to see him in the office in 2 to 3 weeks at which time janet can be removed from his legs and we can reassess whether we should proceed with toe amputations. Justicifation of Admission Dx: Justifications for Admission: Justification of Admission Dx: Yes FAITH YUNG APRN Aug 03, 2021 12:09
[2021-08-03 14:53] VITALS: BP 114/73
[2021-08-03] MEDS: RIVAROXABAN 10 MG TABLET. PO SCH (17:05)
[2021-08-03 19:00] VITALS: BP 115/78
[2021-08-03] MEDS: ATORVASTATIN CALCIUM 20 MG TABLET PO SCH (21:13)
[2021-08-03] MEDS: NYSTATIN TOPICAL POWDER 15GM BOTTLE. TP SCH (21:24)
[2021-08-03 23:00] VITALS: BP 115/69
[2021-08-04 03:00] VITALS: BP 125/71
[2021-08-04 07:00] VITALS: BP 107/64
[2021-08-04] MEDS: ASPIRIN CHEWABLE 81 MG TABLET. PO SCH (07:33)
[2021-08-04] MEDS: PANTOPRAZOLE 40 MG TABLET.DR. PO SCH (07:33)
[2021-08-04] MEDS: INSULIN LISPRO 300 UNITS/3 ML VIAL. SQ SCH ×3 (07:35→17:00)
[2021-08-04] MEDS: ZINC SULFATE 220 MG CAPSULE. PO SCH (08:12)
[2021-08-04] MEDS: ASCORBIC ACID 500 MG TABLET PO SCH (08:12)
[2021-08-04] MEDS: THIAMINE 100 MG TABLET. PO SCH (08:13)
[2021-08-04] MEDS: METOPROLOL TART IMMED RELEASE 25 MG TABLET. PO SCH ×2 (08:13→21:42)
[2021-08-04] MEDS: NYSTATIN TOPICAL POWDER 15GM BOTTLE. TP SCH ×2 (08:19→21:43)
[2021-08-04 10:36] VITALS: BP 125/65
--- NOTE | 2021-08-04 11:03 | NUR ---
SW following. Discussed with RN, pt from home with mother and roommate, room air, cardiac diet. Pt needing to continue to work with therapy - requiring 3 people with max assist to get up. Self pay status - pt will have to return home. MYLENE will continue to follow. Addendum: 08/04/21 at 1328 by WILDA CHAKRABORTY Med Assist working with family to get paperwork completed for disability and Medicaid.
--- NOTE | 2021-08-04 11:32 | PDOC ---
[employer] PROGRESS NOTE Date of Service DOS: DATE: 08/04/21 TIME: 11:26 Chief Complaint Chief Complaint Resolving Covid-19 Subacute thrombotic occlusion of the bilateral popliteal and proximal tibial vessels. s/p bilateral pop/tibial thrombectomies with patch angioplasty s/p RLE hematoma evacuation Metabolic cephalopathy Probable Covid toes IVORY Lactic acidosis Dysphagia Malnutrition Heel erythema Poor nail care History of Present Illness History of Present Illness 08/04/2021 Patient seen and examined He is resting with no apparent distress Discussed with case management Chart reviewed Vascular surgery saw him again yesterday and is hoping to only have to do TMA in the future instead of BKA if we let his feett tissues try to recover for a few weeks Appreciate vascular input. 08/03/2021 Patient seen and examined Laying comfortably in bed with flat affect Bilateral heel protectors present; Dry gangrene present on bilateral toes and heels; Discussed with the wound care nurse Discussed with patient the need for vascular surgery input regarding foot surgery and potential bilateral BKA Chart reviewed Discussed with RN 08/02/2021 Patient seen and examined Discussed with RN Chart reviewed He is resting with no apparent distress 08/01/2021 Patient seen and examined He seems depressed and very weak He has heel protectors on both the toes that are exposed are extremely gangrenous and black and demarcated Discussed with the wound care nurse He explains that vascular surgery is awaiting the complete demarcation to finish up and then they will consider surgery at that time Chart reviewed Discussed with RN 07/31/2021 Patient seen and examined Discussed plan Chart reviewed Still feeling weak Mr Lambert is a 60-year-old male that presented 06/29/2021 via [facility] with decreased level of consciousness. Most of the history was obtained via EMS and patient's friend Reese [phone], who states that patient has been sick since about June 22 per Reese, he states that they both had cough cold headache sinus type pain. Per Reese's report patient is okay during the day and very alert and orientated and at night he has a decreased alertness. Patient is unable to help with exam when asked questions he does deny any past medical history, surgeries, or any other health conditions. Reese who is his roommate collaborates any information gotten from the patient. Accu-Chek per EMS was 250, room air sat in the room was 88 to 90%. 1/14: not much improved, about the same. cont current. PULM following. we have no clinimix, cont D5 fluid, 07/08: more alert, can try ST again, if able to sit up, still very weak 07/09: much more alert, bedside swallow of water ok, sits upright, much stronger, will try clears if able, ST to follow. toes are worsening, now black, hannah consult podiatry to follow, 07/10: More alert. Working with speech and swallowing today. Off O2. Less confused. Bilateral toe ulcers assessed by podiatry today. 07/11: More alert, eating. Arterial Doppler was left popliteal and severe distal disease bilaterally. Still has a little bit of a cough. Less confused today. 07/12: Eating reasonably well. Tentative plans for angiogram for consideration of limb salvage bilateral feet tomorrow. Discussed with cardiology. He will need significant follow-up care likely eventual amputations. 07/13: N.p.o. for angiogram today with bilateral SFA occlusive disease and left popliteal disease with left posterior tibial artery with some flow otherwise occlusive disease per cardiology. Discussed vascular surgery consultation for consideration of definitive revascularization with likely bilateral transmetatarsal amputations. Still with a little bit of a cough. Shortness of breath 07/14: Seen bedside. Having some pain in his bilateral extremities. Shortness of breath improved still with little bit of cough. Eating again. Amenable to revascularization and likely surgical debridement next week. Increasing thromboprophylaxis 07/15: Seen bedside. Not hypoxic. Cough is improving. He feels he is mental status is improved but he is definitely still mentating slowly. Complains of foot pain. He is contemplating surgical options but is okay with what ever the surgeons to choose for his likely lower extremity bypass tentatively planned for 07/17/202107/16: Bilateral foot pain still with cough but improving. Still is contemplating surgical options. 07/17: Patient off floor for surgery today. Chart evaluated. s/p bilateral p op/tibial thrombectomies with patch angioplasty. s/p RLE hematoma evacuation 07/18: Patient did and examined at bedside. He is postop day 1 from bilateral thrombectomies yesterday. Looks like he may need more surgery prior to discharge. Continue heparin drip. Suspect leukocytosis today secondary to surgery. Continue current. 07/19: Patient evaluated examined at bedside. He was working with physical therapy when seen. Continuing heparin drip. Recheck CBC today. Cardiology following vascular following. Will likely need further surgery prior to discharge. 07/20: Seen at bedside. Having RLE pain and had Hgb drop overnight. Will transfuse. Stop heparin drip for now. Seen by vascular, hematoma evacuation ordered. serial Hgb. 07/21: Patient evaluated examined at bedside. Hemoglobin improved up to 8.1 today. Underwent hematoma evacuation yesterday. Planning for further interven tion next week. 07/22: Examine and evaluated at bedside. Resting in bed no major complaints. Hemoglobin stable. Appreciate Cardiology resuming heparin. Further intervention next week. 07/23: Seen at bedside no motor complaints. Hemoglobin still stable. No major clinical changes for today. Intervention this coming week. 07/24: Seen bedside. Has good appetite no cough shortness of breath or chest pain. Left heel with more gangrenous changes left feet. Plan for n.p.o. after midnight 07/25: Seen bedside. N.p.o. for bilateral foot debridement today. K3. Glucose low 100s. Has a friend visiting today. No chest pain or shortness of breath. Pain controlled. 22: Changes in the off heparin drip to Xarelto. No significant anticoagulation for 3 months then can start progressive ambulation with physical therapy with postop shoe per vascular surgery recommendations. No shortness of breath or chest pain today just very weak. 2/3: Up to chair today, has more bilateral foot pain, now wearing post -op shoes. No SOB or cough. He is asking to get back into bed. Encouraged to continue trying to get on his feet. 2: In bed. Foot pain is improved from yesterday. No shortness of breath no cough. Still very weak even weak eating today. 07/29: Seen in bed. No foot pain today. No shortness of breath or cough. Still weak eating well. Not out of bed today. Glucose low 100s. 2: Seen in bed. Pain-free eating breakfast in bed. Still feeling weak has been up on his foot the last day. Glucose well controlled. Vitals/I&O Vitals/I&O: Vital Signs Date Time Temp Pulse Resp B/P (MAP) Pulse Ox O2 Delivery O2 Flow Rate FiO2 08/04/21 10:36 98.4 97 18 125/65 (85) 96 98.4 08/04/21 07:15 Room Air 6.0 I & O 08/03/21 08/03/21 08/04/21 15:00 23:00 07:00 Output Total 250 ml 200 ml Balance -250 ml -200 ml Physical Exam Physical Exam: lethargic and weak General: Alert, Oriented X3, Cooperative, No acute distress, Other (Resting) Heart: Regular rate Lungs: Clear Abdomen: Normal bowel sounds Extremities: Other (Severely black toes please see the pictures) Skin: Other (No further hematoma accumulation) Labs Labs: Laboratory Tests Test 08/03/21 11:44 08/03/21 16:55 08/04/21 07:14 Glucose (Fingerstick) 116 mg/dL (70-99) 128 mg/dL (70-99) 111 mg/dL (70-99) Assessment and Plan Assessmemt and Plan Problems Medical Problems: (1) Dehydration Status: Acute (2) Mental status alteration Status: Acute (3) Pneumonia Status: Acut Resolving Covid-19 Subacute thrombotic occlusion of the bilateral popliteal and proximal tibial vessels. s/p bilateral pop/tibial thrombectomies with patch angioplasty s/p RLE hematoma evacuation Metabolic cephalopathy Probable Covid toes IVORY Lactic acidosis Dysphagia Malnutrition Heel erythema Poor nail care Plan Continue close observation of the feet in hopes that the tissues may recover some Wound care of both calf incisions Offloading Trend labs DVT prophylaxis Full code Wound care of the feet We would like to get him to longterm but he does not have insurance In my opinion he will need disability which will qualify him for Medicaid Vascular surgery saw him again yesterday and is hoping to only have to do TMA in the future instead of BKA if we let his feet tissues try to recover for a few weeks Appreciate vascular input. Per vascular surgery input please see the following we certainly agree and alison reciate their recommendations; A/P: 1. 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 2. History of COVID pneumonia. 3. 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 s/p bilateral pop/tibial thrombectomies with patch angioplasty s/p RLE hematoma evacuation He is doing well post procedures. He continues to have gangrenous changes and demarcation to bilateral feet and heels. discussed plan of care with Dr. Espino. He recommends we continue to wait for further demarcation. It is likely with off-loading his heel eschar will slough and more tissue will improve on plantar surface of left foot, giving him a better change of a TMA healing. This may take several weeks to months. - Continue anticoagulation - Keep incisions clean and dry - Continue to off-load heels. - Continue PT/OT, no restrictions, may place pressure on heels while walking - Will plan to see him in the office in 2 weeks - Discussed with Mirella SANTOS Comment Review of Relevant I have reviewed the following items amanda (where applicable) has been applied. Medications: Current Medications Medications (Trade) Dose Ordered Sig/Vicente Route PRN Reason Start Time Stop Time Status Last Admin Dose Admin Nystatin (Nystop) 1 alison BID TP 08/03/21 21:00 08/04/21 08:19 Justifications for Admission Other Justification COVID-19 positive test (U07.1, COVID-19) with Acute Pneumonia (J12.89, Other viral pneumonia) (If respiratory failure or sepsis present, add as separate assessment) GERDA RASMUSSEN III DO Aug 04, 2021 11:32
[2021-08-04 15:00] VITALS: BP 125/66
[2021-08-04] MEDS: RIVAROXABAN 10 MG TABLET. PO SCH (17:08)
[2021-08-04 19:00] VITALS: BP 127/75
[2021-08-04] MEDS: ATORVASTATIN CALCIUM 20 MG TABLET PO SCH (21:43)
[2021-08-05 02:25] VITALS: BP 119/69
[2021-08-05 07:00] VITALS: BP 124/76
[2021-08-05] MEDS: INSULIN LISPRO 300 UNITS/3 ML VIAL. SQ SCH ×3 (08:00→17:00)
[2021-08-05 11:00] VITALS: BP 112/73
[2021-08-05] MEDS: ASPIRIN CHEWABLE 81 MG TABLET. PO SCH (11:50)
[2021-08-05] MEDS: ZINC SULFATE 220 MG CAPSULE. PO SCH (11:52)
[2021-08-05] MEDS: THIAMINE 100 MG TABLET. PO SCH (11:52)
[2021-08-05] MEDS: PANTOPRAZOLE 40 MG TABLET.DR. PO SCH (11:53)
[2021-08-05] MEDS: ASCORBIC ACID 500 MG TABLET PO SCH (11:53)
[2021-08-05] MEDS: METOPROLOL TART IMMED RELEASE 25 MG TABLET. PO SCH ×2 (11:53→22:02)
[2021-08-05] MEDS: NYSTATIN TOPICAL POWDER 15GM BOTTLE. TP SCH ×2 (11:55→22:07)
--- NOTE | 2021-08-05 11:58 | PDOC ---
GENERAL General: Patient examined chart reviewed today's hospital day 38 for this patient admitt ed with acute metabolic encephalopathy secondary to COVID-19. Patient recovered without extra respiratory support however he developed bilateral lower extremity occlusive arterial thromboses requiring urgent surgery shortly after admission. The patient has gangrene of his distal foot and at this point team is working on salvaging as much of his limbs as possible. Patient is immobilized. He lives at home with stairs which will be a challenge in considering a discharge plan. It sounds like the plan is to get him stronger and then consider a transmetatarsal amputation of both feet. Today is the patient's birthday. He has no new complaints. Denies pain. Time spent today is 30 minutes with greater than 50% in counseling and coordination of care most of which in discussion with patient and extensive record review regarding care plan and progress. Problems: (1) Gangrene of foot (2) Peripheral vascular occlusive disease (3) Pneumonia due to COVID-19 virus VITAL SIGNS Vital Signs/I&O: Vital Signs Date Time Temp Pulse Resp B/P (MAP) Pulse Ox O2 Delivery O2 Flow Rate FiO2 08/05/21 07:00 97.9 83 17 124/76 (92) 96 Room Air 97.9 08/04/21 07:15 6.0 I & O 08/04/21 08/04/21 08/05/21 15:00 23:00 07:00 Output Total 200 ml Balance -200 ml In general patient is pleasant sitting up in bed at baseline orientation in no acute distress HEENT exam is unremarkable for acute abnormality Chest is clear to auscultation Heart S1-S2 normal regular rate and rhythm no murmurs or gallops are noted Abdomen soft nontender nondistended no masses organomegaly noted Extremity exam is notable for dry gangrene of every single one of his toes. His feet are in heel protectors I did not remove them. His legs are warm and perfused above the midfoot. ALLERGIES Allergies: Allergies Coded Allergies Type Severity Reaction Last Updated Verified No Known Drug Allergies 07/27/21 No MEDS Medications: Current Medications Medications (Trade) Dose Ordered Sig/Vicente Start Time Stop Time Status Last Admin Dose Admin Acetaminophen (Tylenol) 650 mg PRN Q4HRS PRN 06/30/21 15:15 Amino Acids/ Electrolytes/ Dextrose 1,000 ml @ 80 mls/hr [id number] 07/04/21 09:15 UNV Ascorbic Acid (Vitamin C) 500 mg DAILY 07/26/21 09:00 08/04/21 08:12 Aspirin (Aspirin Chewable) 81 mg [id number] 07/23/21 08:00 08/04/21 07:33 Aspirin (Ecotrin) 81 mg [id number] 07/11/21 15:00 07/20/21 14:10 DC 07/20/21 08:52 Atorvastatin Calcium (Lipitor) 20 mg QHS 07/11/21 21:00 08/04/21 21:43 Azithromycin 250 ml @ 250 mls/hr 1X ONCE 06/29/21 20:00 06/29/21 20:59 DC 06/29/21 20:00 Cefazolin Sodium 1 gm/Sodium Chloride 500 ml @ 500 mls/hr 1X ONCE 07/25/21 06:00 07/25/21 07:00 DC Cefazolin Sodium/ Dextrose 50 ml @ 100 mls/hr 1X PREOP PRN 07/25/21 06:00 07/25/21 18:00 DC Ceftriaxone Sodium (Rocephin) 1 gm 1X ONCE 06/29/21 20:00 06/29/21 20:05 DC 06/29/21 20:29 Cellulose (Surgicel Fibrillar 1x2) 1 each STK-MED ONCE 07/20/21 16:04 07/20/21 16:05 DC 07/20/21 16:07 Dexamethasone Sodium Phosphate (Decadron) 4 mg STK-MED ONCE 07/25/21 07:08 07/25/21 07:08 DC Dextrose (Dextrose 50%-Water Syringe) 12.5 gm PRN Q15MIN PRN 07/05/21 12:45 07/09/21 23:48 Dextrose/Lactated Ringer's 1,000 ml @ 80 mls/hr [id number] 07/04/21 09:30 07/12/21 10:58 DC 07/12/21 06:27 Diphenhydramine HCl (Benadryl) 25 mg PRN QHS PRN 06/30/21 15:15 07/05/21 14:02 DC Docusate Sodium (Colace) 100 mg PRN DAILY PRN 06/30/21 15:15 08/03/21 09:03 Enoxaparin Sodium (Lovenox 40mg Syringe) 40 mg Q24H 06/30/21 16:00 07/14/21 12:21 DC 07/13/21 17:20 Enoxaparin Sodium (Lovenox 80mg Syringe) 80 mg Q12HR 07/14/21 13:00 07/17/21 12:12 DC 07/16/21 21:01 Ephedrine Sulfate (ePHEDrine PF IN SALINE SYRINGE) 50 mg STK-MED ONCE 07/17/21 05:34 07/18/21 13:30 DC Epinephrine HCl (Adrenalin) 1 mg STK-MED ONCE 07/17/21 05:35 07/18/21 13:30 DC Epinephrine HCl (EPINEPHrine SYRINGE) 1 mg STK-MED ONCE 07/17/21 07:35 07/18/21 13:31 DC Fentanyl Citrate (Fentanyl 2ml Vial) 100 mcg STK-MED ONCE 07/25/21 06:53 07/25/21 06:53 DC Fentanyl Citrate (Fentanyl 5ml Vial) 250 mcg STK-MED ONCE 07/17/21 07:37 07/18/21 13:31 DC Glycopyrrolate (Glycopyrrolate) 1 mg STK-MED ONCE 07/17/21 12:00 07/18/21 12:44 DC Heparin Sodium (Porcine) (Heparin Sodium) 2,000 unit PRN Q6HRS PRN 07/22/21 16:30 07/26/21 13:44 DC 07/23/21 01:17 Heparin Sodium (Porcine) 5000 unit/Sodium Chloride 505 ml @ 505 mls/hr 1X ONCE 07/17/21 08:00 07/17/21 08:59 DC 07/17/21 08:57 Heparin Sodium/ Dextrose 250 ml @ 8.789 mls/ hr CONT PRN 07/22/21 16:30 07/26/21 13:44 DC 07/25/21 20:23 Heparin Sodium/ Sodium Chloride 1,000 ml @ As Directed STK-MED ONCE 07/13/21 12:45 07/18/21 12:53 DC Heparin Sodium/ Sodium Chloride (HEPARIN for ARTERIAL LINE FLUSH) 1,000 unit 1X ONCE 07/13/21 13:00 07/13/21 13:01 DC 07/13/21 13:00 Hydromorphone HCl (Dilaudid) 0.5 mg PRN Q10MIN PRN 07/25/21 06:00 07/25/21 20:00 DC Info (FLU VACCINE SCREEN per RX) 0.5 each 1X ONCE 07/01/21 09:00 07/01/21 09:01 DC Insulin Human Lispro (HumaLOG VIAL for OP,RR ONLY) 0-10 units PRN Q1HR PRN 07/20/21 16:15 07/21/21 16:14 DC Insulin Human Lispro (HumaLOG) 0-5 UNITS TIDWMEALS 07/05/21 17:00 08/02/21 14:12 Iodixanol (Visipaque 320) 100 ml STK-MED ONCE 07/13/21 08:02 07/18/21 12:49 DC Iohexol (Omnipaque 300 Mg/ml) 50 ml STK-MED ONCE 07/17/21 07:08 07/18/21 13:29 DC Lidocaine HCl (Lidocaine 1% 20ml Vial) 20 ml 1X ONCE 07/13/21 13:00 07/13/21 13:01 DC 07/13/21 13:22 Lidocaine HCl (Xylocaine 1% Pf 30ml Vial) 30 ml STK-MED ONCE 07/25/21 07:55 07/25/21 07:56 DC Lidocaine HCl (Xylocaine-Mpf 1% 5ml Vial) 5 ml STK-MED ONCE 07/20/21 14:07 07/20/21 14:07 DC Lorazepam (Ativan Inj) 0.25 mg PRN Q4HRS PRN 06/30/21 15:15 07/05/21 14:02 DC Lorazepam (Ativan) 0.5 mg PRN Q6HRS PRN 06/30/21 15:15 07/05/21 14:02 DC Metoprolol Tartrate (Lopressor) 25 mg BID 07/12/21 12:15 08/04/21 21:42 Midazolam HCl (Versed) 2 mg STK-MED ONCE 07/17/21 07:37 07/18/21 13:31 DC Morphine Sulfate (Morphine Sulfate) 1 mg PRN Q10MIN PRN 07/25/21 06:00 07/25/21 20:00 DC Nitroglycerin (Nitroglycerin) 200 mcg 1X ONCE 07/13/21 13:30 07/13/21 13:35 DC 07/13/21 13:23 Nystatin (Nystop) 1 alison BID 08/03/21 21:00 08/04/21 21:43 Ondansetron HCl (Zofran) 4 mg STK-MED ONCE 07/25/21 07:08 07/25/21 07:08 DC Oxycodone/ Acetaminophen (Percocet 5/325) 2 tab PRN Q4HRS PRN 07/20/21 16:45 Pantoprazole Sodium (PROTONIX VIAL for IV PUSH) 40 mg DAILYAC 06/30/21 16:00 07/27/21 16:51 DC 07/27/21 08:44 Pantoprazole Sodium (Protonix) 40 mg DAILYAC 07/28/21 07:30 08/04/21 07:33 Phenylephrine HCl (Jesus-Synephrine Inj) 10 mg STK-MED ONCE 07/17/21 05:34 07/18/21 13:30 DC Potassium Chloride/Water 100 ml @ 100 mls/hr Q1H 07/25/21 08:00 07/25/21 13:59 DC 07/25/21 13:25 Potassium Chloride (Klor-Con) 20 meq 1X ONCE 07/14/21 11:00 07/14/21 11:01 DC 07/14/21 11:48 Prochlorperazine Edisylate (Compazine) 5 mg PACU PRN PRN 07/25/21 06:00 07/25/21 20:00 DC Propofol (Diprivan) 200 mg STK-MED ONCE 07/25/21 06:52 07/25/21 06:53 DC Protamine Sulfate (Protamine) 50 mg STK-MED ONCE 07/17/21 07:35 07/18/21 13:31 DC Ringer's Solution 1,000 ml @ 30 mls/hr Q24H 07/25/21 06:00 07/25/21 17:59 DC 07/25/21 07:58 Rivaroxaban (Xarelto) 20 mg [id number] 07/26/21 17:00 08/04/21 17:08 Rocuronium [place] (Zemuron) 50 mg STK-MED ONCE 07/25/21 06:59 07/25/21 06:59 DC Sennosides (Senna) 17.2 mg PRN BID PRN 06/30/21 15:15 08/03/21 09:02 Sodium Chloride 1,000 ml @ 100 mls/hr Q10H 07/17/21 12:00 07/21/21 15:21 DC 07/21/21 10:38 Succinylcholine Chloride (Anectine) 200 mg STK-MED ONCE 07/17/21 05:35 07/18/21 13:30 DC Sugammadex Sodium (Bridion) 200 mg 1X ONCE 07/17/21 09:30 07/17/21 09:31 DC Thiamine Mononitrate (Vitamin B-1) 100 mg DAILY 07/26/21 09:00 08/04/21 08:13 Verapamil HCl (Verapamil) 5 mg STK-MED ONCE 07/13/21 13:12 07/18/21 12:53 DC Zinc Sulfate (Orazinc) 220 mg DAILY 06/30/21 16:00 08/04/21 08:12 Zolpidem Tartrate (Ambien) 2.5 mg PRN QHS PRN 06/30/21 15:15 07/05/21 14:02 DC LAB Lab: Laboratory Tests Test 08/04/21 16:29 08/04/21 19:19 08/05/21 07:57 Glucose (Fingerstick) 141 mg/dL (70-99) H 138 mg/dL (70-99) H 99 mg/dL (70-99) ASSESSMENT & PLAN A&P Plan as noted above This note was created using [employer] and may have omissions and/or errors due to the nature of real-time voice electric meter installer. Justifications for Admission Other Justification COVID-19 positive test (U07.1, COVID-19) with Acute Pneumonia (J12.89, Other viral pneumonia) (If respiratory failure or sepsis present, add as separate assessment) RACHEL SALGADO MD Aug 05, 2021 11:58
[2021-08-05] MEDS: ANTI-COAG MONITOR BY PHARMACY. MC PRN (12:28)
[2021-08-05 15:00] VITALS: BP 117/76
--- NOTE | 2021-08-05 17:23 | PDOC ---
CARDIOLOGY PROGRESS NOTE SUBJECTIVE: No acute events overnight. Patient denies any chest pain. He is awaiting placement. OBJECTIVE: Vital Signs/I&O: Vital Signs Date Time Temp Pulse Resp B/P (MAP) Pulse Ox O2 Delivery O2 Flow Rate FiO2 08/05/21 11:53 83 124/76 08/05/21 11:00 98.0 18 96 Room Air 98.0 08/04/21 07:15 6.0 I & O 08/04/21 08/04/21 08/05/21 15:00 23:00 07:00 Output Total 200 ml Balance -200 ml Objective: HEENT: Neck Supple W Full Motion Chest: Symmetric LUNGS: Clear to Auscultation Heart: RRR (SR) Abdomen: Soft N/T Extremities: Other (trace bilateral LE edema. eschar of bilateral toes and heels ) Neurology: alert, oriented, follow commands Assessment Assessment 1. Acute respiratory failure due to acute COVID infection. improved. now on RA 2. Encephalopathy; CT head without acute findings. improved 3. PAD, subacute thrombotic occlusion of the bilateral popliteal and proximal tibial vessels. s/p bilateral pop/tibial thrombectomy with patch angioplasty 4. Gangrenous changes of bilateral toes and heels; amputation held due to impro vement in his forefoot skin on the left. Plans to allow more time for healing 5. Hypertension; controlled 6. Anemia requiring transfusion. hgb now stable 7. RLE hematoma; s/p evacuation Recommendations Secondary prevention measures No changes. Continue OAC with Xarelto. Will provide with samples Consider outpatient ischemia evaluation SS consult CURRENT MEDICATIONS: Current Medications Medications (Trade) Dose Ordered Sig/Vicente Route PRN Reason Start Time Stop Time Status Last Admin Dose Admin Info (Anti-Coagulation Monitoring By Pharmacy) 1 each PRN DAILY PRN MC PER PROTOCOL 08/05/21 12:30 08/05/21 12:28 DIAGNOSTIC TESTING: Labs: Laboratory Tests Test 08/04/21 19:19 08/05/21 07:57 08/05/21 11:30 08/05/21 16:34 Glucose (Fingerstick) 138 mg/dL (70-99) H 99 mg/dL (70-99) 113 mg/dL (70-99) H 118 mg/dL (70-99) H Justicifation of Admission Dx: Justifications for Admission: Justification of Admission Dx: Yes MALAIKA HOLLIS MD Aug 05, 2021 17:23
[2021-08-05] MEDS: RIVAROXABAN 10 MG TABLET. PO SCH (18:09)
[2021-08-05 19:00] VITALS: BP 118/68
[2021-08-05] MEDS: ATORVASTATIN CALCIUM 20 MG TABLET PO SCH (22:02)
[2021-08-05 23:00] VITALS: BP 121/68
[2021-08-06 03:10] VITALS: BP 103/74
[2021-08-06 07:00] VITALS: BP 126/78
[2021-08-06 07:54] LABS: BASO # 0.1 x10^3/uL (0.0-0.2); BASO % 1 % (0-3); EOS # 0.2 x10^3/uL (0.0-0.7); EOS % 2 % (0-3); HEMATOCRIT 34.8 % (39.0-53.0); LYMPH # 2.5 x10^3/uL (1.0-4.8); LYMPH % 24 % (24-48); MEAN CORPUSCULAR HEMOGLOBIN 29 pg (25-35); MEAN CORPUSCULAR HGB CONC 32 g/dL (31-37); MEAN CORPUSCULAR VOLUME 92 fL (79-100); MONO # 0.9 x10^3/uL (0.0-1.1); MONO % 9 % (0-9); NEUT # 6.5 x10^3/uL (1.8-7.7); NEUT % 64 % (31-73); PLATELET COUNT 341 x10^3/uL (140-400); RED BLOOD COUNT 3.76 x10^6/uL (4.30-5.70); RED CELL DISTRIBUTION WIDTH 16.2 % (11.5-14.5); WHITE BLOOD COUNT 10.1 x10^3/uL (4.0-11.0)
[2021-08-06] MEDS: INSULIN LISPRO 300 UNITS/3 ML VIAL. SQ SCH ×3 (08:00→17:00)
[2021-08-06] MEDS: ANTI-COAG MONITOR BY PHARMACY. MC PRN (08:17)
[2021-08-06 08:33] LABS: ALBUMIN 2.4 g/dL (3.4-5.0); ALBUMIN/GLOBULIN RATIO 0.5 (1.0-1.7); CALCIUM 8.7 mg/dL (8.5-10.1); CREATININE 0.8 mg/dL (0.7-1.3); POTASSIUM 3.9 mmol/L (3.5-5.1); TOTAL BILIRUBIN 0.8 mg/dL (0.2-1.0); TOTAL PROTEIN 7.2 g/dL (6.4-8.2)
[2021-08-06] MEDS: THIAMINE 100 MG TABLET. PO SCH (10:21)
[2021-08-06] MEDS: PANTOPRAZOLE 40 MG TABLET.DR. PO SCH (10:21)
[2021-08-06] MEDS: ASPIRIN CHEWABLE 81 MG TABLET. PO SCH (10:21)
[2021-08-06] MEDS: METOPROLOL TART IMMED RELEASE 25 MG TABLET. PO SCH ×2 (10:22→22:07)
[2021-08-06] MEDS: ASCORBIC ACID 500 MG TABLET PO SCH (10:22)
[2021-08-06] MEDS: ZINC SULFATE 220 MG CAPSULE. PO SCH (10:22)
[2021-08-06] MEDS: NYSTATIN TOPICAL POWDER 15GM BOTTLE. TP SCH ×2 (10:23→22:08)
[2021-08-06] MEDS: oxyCODONE/APAP 5/325 1 TAB TABLET PO PRN ×2 (10:37→18:06)
[2021-08-06 11:00] VITALS: BP 114/76
--- NOTE | 2021-08-06 11:37 | PDOC ---
GENERAL General: Patient examined chart reviewed no overnight events noted. Patient is in good spirits today resting comfortably. He is optimistic that he will recover well. Still too weak to handle the stairs at home. Continue to work on discharge with a robust discharge plan to avoid readmission. Problems: (1) Peripheral vascular occlusive disease (2) Pneumonia due to COVID-19 virus (3) Gangrene of foot VITAL SIGNS Vital Signs/I&O: Vital Signs Date Time Temp Pulse Resp B/P (MAP) Pulse Ox O2 Delivery O2 Flow Rate FiO2 08/06/21 10:37 18 97 Room Air 08/06/21 10:22 90 126/78 08/06/21 07:00 98.0 98.0 I & O 08/05/21 08/05/21 08/06/21 15:00 23:00 07:00 Intake Total 237 ml 273 ml Output Total 100 ml 0 ml Balance 237 ml 173 ml 0 ml Patient is resting comfortably lying in bed at baseline orientation in no acute distress HEENT exam is unremarkable for acute abnormality Chest is clear to auscultation Heart S1-S2 normal regular rate and rhythm no murmurs or gallops are noted Abdomen soft nontender nondistended no masses organomegaly noted Extremity exam is unchanged from prior gangrene of both feet involving every s sidney toe ALLERGIES Allergies: Allergies Coded Allergies Type Severity Reaction Last Updated Verified No Known Drug Allergies 07/27/21 No MEDS Medications: Current Medications Medications (Trade) Dose Ordered Sig/Vicente Start Time Stop Time Status Last Admin Dose Admin Acetaminophen (Tylenol) 650 mg PRN Q4HRS PRN 06/30/21 15:15 Amino Acids/ Electrolytes/ Dextrose 1,000 ml @ 80 mls/hr [id number] 07/04/21 09:15 UNV Ascorbic Acid (Vitamin C) 500 mg DAILY 07/26/21 09:00 08/06/21 10:22 Aspirin (Aspirin Chewable) 81 mg [id number] 07/23/21 08:00 08/06/21 10:21 Aspirin (Ecotrin) 81 mg [id number] 07/11/21 15:00 07/20/21 14:10 DC 07/20/21 08:52 Atorvastatin Calcium (Lipitor) 20 mg QHS 07/11/21 21:00 08/05/21 22:02 Azithromycin 250 ml @ 250 mls/hr 1X ONCE 06/29/21 20:00 06/29/21 20:59 DC 06/29/21 20:00 Cefazolin Sodium 1 gm/Sodium Chloride 500 ml @ 500 mls/hr 1X ONCE 07/25/21 06:00 07/25/21 07:00 DC Cefazolin Sodium/ Dextrose 50 ml @ 100 mls/hr 1X PREOP PRN 07/25/21 06:00 07/25/21 18:00 DC Ceftriaxone Sodium (Rocephin) 1 gm 1X ONCE 06/29/21 20:00 06/29/21 20:05 DC 06/29/21 20:29 Cellulose (Surgicel Fibrillar 1x2) 1 each STK-MED ONCE 07/20/21 16:04 07/20/21 16:05 DC 07/20/21 16:07 Dexamethasone Sodium Phosphate (Decadron) 4 mg STK-MED ONCE 07/25/21 07:08 07/25/21 07:08 DC Dextrose (Dextrose 50%-Water Syringe) 12.5 gm PRN Q15MIN PRN 07/05/21 12:45 07/09/21 23:48 Dextrose/Lactated Ringer's 1,000 ml @ 80 mls/hr [id number] 07/04/21 09:30 07/12/21 10:58 DC 07/12/21 06:27 Diphenhydramine HCl (Benadryl) 25 mg PRN QHS PRN 06/30/21 15:15 07/05/21 14:02 DC Docusate Sodium (Colace) 100 mg PRN DAILY PRN 06/30/21 15:15 08/03/21 09:03 Enoxaparin Sodium (Lovenox 40mg Syringe) 40 mg Q24H 06/30/21 16:00 07/14/21 12:21 DC 07/13/21 17:20 Enoxaparin Sodium (Lovenox 80mg Syringe) 80 mg Q12HR 07/14/21 13:00 07/17/21 12:12 DC 07/16/21 21:01 Ephedrine Sulfate (ePHEDrine PF IN SALINE SYRINGE) 50 mg STK-MED ONCE 07/17/21 05:34 07/18/21 13:30 DC Epinephrine HCl (Adrenalin) 1 mg STK-MED ONCE 07/17/21 05:35 07/18/21 13:30 DC Epinephrine HCl (EPINEPHrine SYRINGE) 1 mg STK-MED ONCE 07/17/21 07:35 07/18/21 13:31 DC Fentanyl Citrate (Fentanyl 2ml Vial) 100 mcg STK-MED ONCE 07/25/21 06:53 07/25/21 06:53 DC Fentanyl Citrate (Fentanyl 5ml Vial) 250 mcg STK-MED ONCE 07/17/21 07:37 07/18/21 13:31 DC Glycopyrrolate (Glycopyrrolate) 1 mg STK-MED ONCE 07/17/21 12:00 07/18/21 12:44 DC Heparin Sodium (Porcine) (Heparin Sodium) 2,000 unit PRN Q6HRS PRN 07/22/21 16:30 07/26/21 13:44 DC 07/23/21 01:17 Heparin Sodium (Porcine) 5000 unit/Sodium Chloride 505 ml @ 505 mls/hr 1X ONCE 07/17/21 08:00 07/17/21 08:59 DC 07/17/21 08:57 Heparin Sodium/ Dextrose 250 ml @ 8.789 mls/ hr CONT PRN 07/22/21 16:30 07/26/21 13:44 DC 07/25/21 20:23 Heparin Sodium/ Sodium Chloride 1,000 ml @ As Directed STK-MED ONCE 07/13/21 12:45 07/18/21 12:53 DC Heparin Sodium/ Sodium Chloride (HEPARIN for ARTERIAL LINE FLUSH) 1,000 unit 1X ONCE 07/13/21 13:00 07/13/21 13:01 DC 07/13/21 13:00 Hydromorphone HCl (Dilaudid) 0.5 mg PRN Q10MIN PRN 07/25/21 06:00 07/25/21 20:00 DC Info (Anti-Coagulation Monitoring By Pharmacy) 1 each PRN DAILY PRN 08/05/21 12:30 08/06/21 08:17 Info (FLU VACCINE SCREEN per RX) 0.5 each 1X ONCE 07/01/21 09:00 07/01/21 09:01 DC Insulin Human Lispro (HumaLOG VIAL for OP,RR ONLY) 0-10 units PRN Q1HR PRN 07/20/21 16:15 07/21/21 16:14 DC Insulin Human Lispro (HumaLOG) 0-5 UNITS TIDWMEALS 07/05/21 17:00 08/02/21 14:12 Iodixanol (Visipaque 320) 100 ml STK-MED ONCE 07/13/21 08:02 07/18/21 12:49 DC Iohexol (Omnipaque 300 Mg/ml) 50 ml STK-MED ONCE 07/17/21 07:08 07/18/21 13:29 DC Lidocaine HCl (Lidocaine 1% 20ml Vial) 20 ml 1X ONCE 07/13/21 13:00 07/13/21 13:01 DC 07/13/21 13:22 Lidocaine HCl (Xylocaine 1% Pf 30ml Vial) 30 ml STK-MED ONCE 07/25/21 07:55 07/25/21 07:56 DC Lidocaine HCl (Xylocaine-Mpf 1% 5ml Vial) 5 ml STK-MED ONCE 07/20/21 14:07 07/20/21 14:07 DC Lorazepam (Ativan Inj) 0.25 mg PRN Q4HRS PRN 06/30/21 15:15 07/05/21 14:02 DC Lorazepam (Ativan) 0.5 mg PRN Q6HRS PRN 06/30/21 15:15 07/05/21 14:02 DC Metoprolol Tartrate (Lopressor) 25 mg BID 07/12/21 12:15 08/06/21 10:22 Midazolam HCl (Versed) 2 mg STK-MED ONCE 07/17/21 07:37 07/18/21 13:31 DC Morphine Sulfate (Morphine Sulfate) 1 mg PRN Q10MIN PRN 07/25/21 06:00 07/25/21 20:00 DC Nitroglycerin (Nitroglycerin) 200 mcg 1X ONCE 07/13/21 13:30 07/13/21 13:35 DC 07/13/21 13:23 Nystatin (Nystop) 1 alison BID 08/03/21 21:00 08/06/21 10:23 Ondansetron HCl (Zofran) 4 mg STK-MED ONCE 07/25/21 07:08 07/25/21 07:08 DC Oxycodone/ Acetaminophen (Percocet 5/325) 2 tab PRN Q4HRS PRN 07/20/21 16:45 Pantoprazole Sodium (PROTONIX VIAL for IV PUSH) 40 mg DAILYAC 06/30/21 16:00 07/27/21 16:51 DC 07/27/21 08:44 Pantoprazole Sodium (Protonix) 40 mg DAILYAC 07/28/21 07:30 08/06/21 10:21 Phenylephrine HCl (Jesus-Synephrine Inj) 10 mg STK-MED ONCE 07/17/21 05:34 07/18/21 13:30 DC Potassium Chloride/Water 100 ml @ 100 mls/hr Q1H 07/25/21 08:00 07/25/21 13:59 DC 07/25/21 13:25 Potassium Chloride (Klor-Con) 20 meq 1X ONCE 07/14/21 11:00 07/14/21 11:01 DC 07/14/21 11:48 Prochlorperazine Edisylate (Compazine) 5 mg PACU PRN PRN 07/25/21 06:00 07/25/21 20:00 DC Propofol (Diprivan) 200 mg STK-MED ONCE 07/25/21 06:52 07/25/21 06:53 DC Protamine Sulfate (Protamine) 50 mg STK-MED ONCE 07/17/21 07:35 07/18/21 13:31 DC Ringer's Solution 1,000 ml @ 30 mls/hr Q24H 07/25/21 06:00 07/25/21 17:59 DC 07/25/21 07:58 Rivaroxaban (Xarelto) 20 mg [id number] 07/26/21 17:00 08/05/21 18:09 Rocuronium Asotin (Zemuron) 50 mg STK-MED ONCE 07/25/21 06:59 07/25/21 06:59 DC Sennosides (Senna) 17.2 mg PRN BID PRN 06/30/21 15:15 08/03/21 09:02 Sodium Chloride 1,000 ml @ 100 mls/hr Q10H 07/17/21 12:00 07/21/21 15:21 DC 07/21/21 10:38 Succinylcholine Chloride (Anectine) 200 mg STK-MED ONCE 07/17/21 05:35 07/18/21 13:30 DC Sugammadex Sodium (Bridion) 200 mg 1X ONCE 07/17/21 09:30 07/17/21 09:31 DC Thiamine Mononitrate (Vitamin B-1) 100 mg DAILY 07/26/21 09:00 08/06/21 10:21 Verapamil HCl (Verapamil) 5 mg STK-MED ONCE 07/13/21 13:12 07/18/21 12:53 DC Zinc Sulfate (Orazinc) 220 mg DAILY 06/30/21 16:00 08/06/21 10:22 Zolpidem Tartrate (Ambien) 2.5 mg PRN QHS PRN 06/30/21 15:15 07/05/21 14:02 DC Current Medications Medications (Trade) Dose Ordered Sig/Vicetne Route PRN Reason Start Time Stop Time Status Last Admin Dose Admin Info (Anti-Coagulation Monitoring By Pharmacy) 1 each PRN DAILY PRN MC PER PROTOCOL 08/05/21 12:30 08/06/21 08:17 LAB Lab: Laboratory Tests Test 08/05/21 16:34 08/05/21 20:50 08/06/21 06:10 08/06/21 07:32 Glucose (Fingerstick) 118 mg/dL (70-99) H 136 mg/dL (70-99) H 108 mg/dL (70-99) H White Blood Count 10.1 x10^3/uL (4.0-11.0) Red Blood Count 3.76 x10^6/uL (4.30-5.70) L Hemoglobin 11.0 g/dL (13.0-17.5) L Hematocrit 34.8 % (39.0-53.0) L Mean Corpuscular Volume 92 fL (79-100) Mean Corpuscular Hemoglobin 29 pg (25-35) Mean Corpuscular Hemoglobin Concent 32 g/dL (31-37) Red Cell Distribution Width 16.2 % (11.5-14.5) H Platelet Count 341 x10^3/uL (140-400) Neutrophils (%) (Auto) 64 % (31-73) Lymphocytes (%) (Auto) 24 % (24-48) Monocytes (%) (Auto) 9 % (0-9) Eosinophils (%) (Auto) 2 % (0-3) Basophils (%) (Auto) 1 % (0-3) Neutrophils # (Auto) 6.5 x10^3/uL (1.8-7.7) Lymphocytes # (Auto) 2.5 x10^3/uL (1.0-4.8) Monocytes # (Auto) 0.9 x10^3/uL (0.0-1.1) Eosinophils # (Auto) 0.2 x10^3/uL (0.0-0.7) Basophils # (Auto) 0.1 x10^3/uL (0.0-0.2) Sodium Level 142 mmol/L (136-145) Potassium Level 3.9 mmol/L (3.5-5.1) Chloride Level 104 mmol/L (98-107) Carbon Dioxide Level 28 mmol/L (21-32) Anion Gap 10 (6-14) Blood Urea Nitrogen 16 mg/dL (8-26) Creatinine 0.8 mg/dL (0.7-1.3) Estimated GFR (Cockcroft-Gault) 98.0 BUN/Creatinine Ratio 20 (6-20) Glucose Level 105 mg/dL (70-99) H Calcium Level 8.7 mg/dL (8.5-10.1) Total Bilirubin 0.8 mg/dL (0.2-1.0) Aspartate Amino Transferase (AST) 27 U/L (15-37) Alanine Aminotransferase (ALT) 22 U/L (16-63) Alkaline Phosphatase 64 U/L (46-116) Total Protein 7.2 g/dL (6.4-8.2) Albumin 2.4 g/dL (3.4-5.0) L Albumin/Globulin Ratio 0.5 (1.0-1.7) L Laboratory Tests 08/06/21 06:10 Laboratory Tests 08/06/21 06:10 ASSESSMENT & PLAN A&P Plan as noted above This note was created using [employer] and may have omissions and/or errors due to 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 Justifications for Admission Other Justification COVID-19 positive test (U07.1, COVID-19) with Acute Pneumonia (J12.89, Other vi ral pneumonia) (If respiratory failure or sepsis present, add as separate assessment) RACHEL SALGADO MD Aug 06, 2021 11:36
[2021-08-06 15:00] VITALS: BP 111/68
[2021-08-06] MEDS: RIVAROXABAN 10 MG TABLET. PO SCH (18:05)
[2021-08-06 19:49] VITALS: BP 118/71
[2021-08-06] MEDS: ATORVASTATIN CALCIUM 20 MG TABLET PO SCH (22:06)
[2021-08-06 23:08] VITALS: BP 113/74
[2021-08-07 03:10] VITALS: BP 119/75
[2021-08-07 07:00] VITALS: BP 125/74
[2021-08-07] MEDS: INSULIN LISPRO 300 UNITS/3 ML VIAL. SQ SCH ×3 (08:00→16:56)
[2021-08-07] MEDS: ASCORBIC ACID 500 MG TABLET PO SCH (08:15)
[2021-08-07] MEDS: ZINC SULFATE 220 MG CAPSULE. PO SCH (08:15)
[2021-08-07] MEDS: THIAMINE 100 MG TABLET. PO SCH (08:15)
[2021-08-07] MEDS: ASPIRIN CHEWABLE 81 MG TABLET. PO SCH (08:15)
[2021-08-07] MEDS: METOPROLOL TART IMMED RELEASE 25 MG TABLET. PO SCH ×2 (08:16→21:00)
[2021-08-07] MEDS: PANTOPRAZOLE 40 MG TABLET.DR. PO SCH (08:17)
[2021-08-07] MEDS: NYSTATIN TOPICAL POWDER 15GM BOTTLE. TP SCH ×2 (08:18→21:00)
[2021-08-07 11:00] VITALS: BP 113/70
--- NOTE | 2021-08-07 11:54 | PDOC ---
[employer] PROGRESS NOTE Date of Service DOS: DATE: 08/07/21 TIME: 11:54 Chief Complaint Chief Complaint Resolving Covid-19 Subacute thrombotic occlusion of the bilateral popliteal and proximal tibial vessels. s/p bilateral pop/tibial thrombectomies with patch angioplasty s/p RLE hematoma evacuation Metabolic cephalopathy Probable Covid toes IVORY Lactic acidosis Dysphagia Malnutrition Heel erythema Poor nail care History of Present Illness History of Present Illness 08/07: Seen and examined bedside. He is awaiting therapy evaluation today. Foot pain is well controlled. No worsening erythema or fevers. No shortness of breath or chest pain. 08/04/2021 Patient seen and examined He is resting with no apparent distress Discussed with case management Chart reviewed Vascular surgery saw him again yesterday and is hoping to only have to do TMA in the future instead of BKA if we let his feett tissues try to recover for a few weeks Appreciate vascular input. 08/03/2021 Patient seen and examined Laying comfortably in bed with flat affect Bilateral heel protectors present; Dry gangrene present on bilateral toes and heels; Discussed with the wound care nurse Discussed with patient the need for vascular surgery input regarding foot surgery and potential bilateral BKA Chart reviewed Discussed with RN 08/02/2021 Patient seen and examined Discussed with RN Chart reviewed He is resting with no apparent distress 08/01/2021 Patient seen and examined He seems depressed and very weak He has heel protectors on both the toes that are exposed are extremely gangrenous and black and demarcated Discussed with the wound care nurse He explains that vascular surgery is awaiting the complete demarcation to finish up and then they will consider surgery at that time Chart reviewed Discussed with RN 07/31/2021 Patient seen and examined Discussed plan Chart reviewed Still feeling weak Mr Lambert is a 60-year-old male that presented 06/29/2021 via [facility] with decreased level of consciousness. Most of the history was obtained via EMS and patient's friend Reese [phone], who states that patient has been sick since about June 22 per Reese, he states that they both had cough cold headache sinus type pain. Per Reese's report patient is okay during the day and very alert and orientated and at night he has a decreased alertness. Patient is unable to help with exam when asked questions he does deny any past medical history, surgeries, or any other health conditions. Reese who is his roommate collaborates any information gotten from the patient. Accu-Chek per EMS was 250, room air sat in the room was 88 to 90%. 07/07: not much improved, about the same. cont current. PULM following. we have no clinimix, cont D5 fluid, 07/08: more alert, can try ST again, if able to sit up, still very weak 07/09: much more alert, bedside swallow of water ok, sits upright, much stronger, will try clears if able, ST to follow. toes are worsening, now black, hannah consult podiatry to follow, 07/10: More alert. Working with speech and swallowing today. Off O2. Less confused. Bilateral toe ulcers assessed by podiatry today. 07/11: More alert, eating. Arterial Doppler was left popliteal and severe distal disease bilaterally. Still has a little bit of a cough. Less confused today. 07/12: Eating reasonably well. Tentative plans for angiogram for consideration of limb salvage bilateral feet tomorrow. Discussed with cardiology. He will n eed significant follow-up care likely eventual amputations. 07/13: N.p.o. for angiogram today with bilateral SFA occlusive disease and left popliteal disease with left posterior tibial artery with some flow otherwise occlusive disease per cardiology. Discussed vascular surgery consultation for consideration of definitive revascularization with likely bilateral transmetatarsal amputations. Still with a little bit of a cough. Shortness of breath 07/14: Seen bedside. Having some pain in his bilateral extremities. Shortness of breath improved still with little bit of cough. Eating again. Amenable to revascularization and likely surgical debridement next week. Increasing thromboprophylaxis 07/15: Seen bedside. Not hypoxic. Cough is improving. He feels he is mental status is improved but he is definitely still mentating slowly. Complains of foot pain. He is contemplating surgical options but is okay with what ever the surgeons to choose for his likely lower extremity bypass tentatively planned for 07/17/202107/16: Bilateral foot pain still with cough but improving. Still is contemplating surgical options. 07/17: Patient off floor for surgery today. Chart evaluated. s/p bilateral pop/tibial thrombectomies with patch angioplasty. s/p RLE hematoma evacuation 07/18: Patient did and examined at bedside. He is postop day 1 from bilateral thrombectomies yesterday. Looks like he may need more surgery prior to discharge. Continue heparin drip. Suspect leukocytosis today secondary to surgery. Continue current. 07/19: Patient evaluated examined at bedside. He was working with physical therapy when seen. Continuing heparin drip. Recheck CBC today. Cardiology following vascular following. Will likely need further surgery prior to discharge. 07/20: Seen at bedside. Having RLE pain and had Hgb drop overnight. Will transfuse. Stop heparin drip for now. Seen by vascular, hematoma evacuation ordered. serial Hgb. 07/21: Patient evaluated examined at bedside. Hemoglobin improved up to 8.1 today. Underwent hematoma evacuation yesterday. Planning for further intervention next week. 07/22: Examine and evaluated at bedside. Resting in bed no major complaints. Hemoglobin stable. Appreciate Cardiology resuming heparin. Further intervention next week. 07/23: Seen at bedside no motor complaints. Hemoglobin still stable. No major clinical changes for today. Intervention this coming week. 07/24: Seen bedside. Has good appetite no cough shortness of breath or chest pain. Left heel with more gangrenous changes left feet. Plan for n.p.o. after midnight 07/25: Seen bedside. N.p.o. for bilateral foot debridement today. K3. Glucose low 100s. Has a friend visiting today. No chest pain or shortness of breath. Pain controlled. 2/2: Changes in the off heparin drip to Xarelto. No significant anticoagulation for 3 months then can start progressive ambulation with physical therapy with postop shoe per vascular surgery recommendations. No shortness of breath or chest pain today just very weak. 2/3: Up to chair today, has more bilateral foot pain, now wearing post -op shoes. No SOB or cough. He is asking to get back into bed. Encouraged to continue trying to get on his feet. 24: In bed. Foot pain is improved from yesterday. No shortness of breath no cough. Still very weak even weak eating today. 07/29: Seen in bed. No foot pain today. No shortness of breath or cough. Still weak eating well. Not out of bed today. Glucose low 100s. 2: Seen in bed. Pain-free eating breakfast in bed. Still feeling weak has been up on his foot the last day. Glucose well controlled. Vitals/I&O Vitals/I&O: Vital Signs Date Time Temp Pulse Resp B/P (MAP) Pulse Ox O2 Delivery O2 Flow Rate FiO2 08/07/21 08:16 75 125/74 08/07/21 07:00 97.9 20 98 Room Air 97.9 08/06/21 18:06 6.0 I & O 08/06/21 08/06/21 08/07/21 15:00 23:00 07:00 Intake Total 1092 ml 273 ml Output Total 150 ml Balance 1092 ml 273 ml -150 ml Physical Exam Physical Exam: lethargic and weak General: Alert, Oriented X3, Cooperative, No acute distress, Other (Resting) Heart: Regular rate Lungs: Clear Abdomen: Normal bowel sounds Extremities: Other (Severely black toes please see the pictures) Skin: Other (No further hematoma accumulation) Labs Labs: Laboratory Tests Test 08/06/21 16:40 08/06/21 20:34 08/07/21 07:15 08/07/21 11:33 Glucose (Fingerstick) 147 mg/dL (70-99) 138 mg/dL (70-99) 105 mg/dL (70-99) 107 mg/dL (70-99) Assessment and Plan Assessmemt and Plan Problems Medical Problems: (1) Dehydration Status: Acute (2) Mental status alteration Status: Acute (3) Pneumonia Status: Acute Comment Review of Relevant I have reviewed the following items amanda (where applicable) has been applied. Justifications for Admission Other Justification COVID-19 positive test (U07.1, COVID-19) with Acute Pneumonia (J12.89, Other viral pneumonia) (If respiratory failure or sepsis present, add as separate assessment) SIMONE ARGUELLO MD Aug 07, 2021 11:54
--- NOTE | 2021-08-07 12:07 | PDOC ---
DEEPALI BRAR BIOLOGY SPECIMEN TECHNICIAN 08/07/21 1206: CARDIO Progress Notes Date and Time Date of Service 08/07/21 Time of Evaluation 1200 Subjective Subjective: No Chest Pain, No shortness of breath, No Palpitations, No Dizziness Vitals Vitals Vital Signs Date Time Temp Pulse Resp B/P (MAP) Pulse Ox O2 Delivery O2 Flow Rate FiO2 08/07/21 11:00 98.3 80 20 113/70 (84) 98 Room Air 98.3 08/06/21 18:06 6.0 Weight Weight [ ] Input and Output Intake and Output Intake and Output 08/07/21 07:00 Intake Total 1365 ml Output Total 150 ml Balance 1215 ml Intake Oral 1365 ml Output Urine Total 150 ml # Voids 1 # Bowel Movements 1 Laboratory Labs Laboratory Tests Test 08/06/21 16:40 08/06/21 20:34 08/07/21 07:15 08/07/21 11:33 Glucose (Fingerstick) 147 mg/dL (70-99) 138 mg/dL (70-99) 105 mg/dL (70-99) 107 mg/dL (70-99) Physical Exam HEENT: Neck Supple W Full Motion Chest: Symmetric LUNGS: Clear to Auscultation Heart: RRR (SR) Abdomen: Soft N/T Extremities: Other (trace bilateral LE edema. eschar of bilateral toes and heels ) Neurology: alert, oriented, follow commands Assessment Assessment 1. Acute respiratory failure due to acute COVID infection. improved. now on RA 2. Encephalopathy; CT head without acute findings. improved 3. PAD, subacute thrombotic occlusion of the bilateral popliteal and proximal tibial vessels. s/p bilateral pop/tibial thrombectomy with patch angioplasty 4. 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 Plans to allow more time for healing 5. Hypertension; controlled 6. Anemia requiring transfusion. hgb now stable 7. RLE hematoma; s/p evacuation Recommendations Secondary prevention measures No changes. Continue OAC with Xarelto. Samples provided Consider outpatient ischemia evaluation Justicifation of Admission Dx: Justifications for Admission: Justification of Admission Dx: Yes MALAIKA HOLLIS MD 08/07/21 [id number]: CARDIO Progress Notes Plan Plan The patient was seen and interviewed as well as examined at the bedside. The chart was reviewed. The case was discussed. Agree with the plan of care. DEEPALI BRAR APRN Aug 07, 2021 12:06 MALAIKA HOLLIS MD Aug 07, 2021 19:04
--- NOTE | 2021-08-07 14:22 | NUR ---
SW following. Discussed with RN, pt from home, room air, cardiac diet. Per RN, pt has been refusing to be turned, refusing to get up etc. SW will continue to follow.
[2021-08-07 15:00] VITALS: BP 125/80
[2021-08-07] MEDS: RIVAROXABAN 10 MG TABLET. PO SCH (16:55)
[2021-08-07 19:00] VITALS: BP 134/71
[2021-08-07] MEDS: ATORVASTATIN CALCIUM 20 MG TABLET PO SCH (21:00)
[2021-08-07] MEDS: oxyCODONE/APAP 5/325 1 TAB TABLET PO PRN (21:04)
[2021-08-07 23:00] VITALS: BP 118/76
[2021-08-08 03:00] VITALS: BP_SYST 124
[2021-08-08 07:00] VITALS: BP 115/75
[2021-08-08] MEDS: INSULIN LISPRO 300 UNITS/3 ML VIAL. SQ SCH ×3 (08:00→17:00)
--- NOTE | 2021-08-08 09:02 | PDOC ---
[facility] [facility] PROGRESS NOTE Date of Service DOS: DATE: 08/08/21 TIME: 09:01 Chief Complaint Chief Complaint Resolving Covid-19 Subacute thrombotic occlusion of the bilateral popliteal and proximal tibial vessels. s/p bilateral pop/tibial thrombectomies with patch angioplasty s/p RLE hematoma evacuation Metabolic cephalopathy Probable Covid toes IVORY Lactic acidosis Dysphagia Malnutrition Heel erythema Poor nail care History of Present Illness History of Present Illness 08/07: Seen and examined bedside. He is awaiting therapy evaluation today. Foot pain is well controlled. No worsening erythema or fevers but does have some drainage on the lateral left heel wound. No shortness of breath or chest pain. 08/04/2021 Patient seen and examined He is resting with no apparent distress Discussed with case management Chart reviewed Vascular surgery saw him again yesterday and is hoping to only have to do TMA in the future instead of BKA if we let his feett tissues try to recover for a few weeks Appreciate vascular input. 08/03/2021 Patient seen and examined Laying comfortably in bed with flat affect Bilateral heel protectors present; Dry gangrene present on bilateral toes and heels; Discussed with the wound care nurse Discussed with patient the need for vascular surgery input regarding foot surgery and potential bilateral BKA Chart reviewed Discussed with RN 08/02/2021 Patient seen and examined Discussed with RN Chart reviewed He is resting with no apparent distress 08/01/2021 Patient seen and examined He seems depressed and very weak He has heel protectors on both the toes that are exposed are extremely gangrenous and black and demarcated Discussed with the wound care nurse He explains that vascular surgery is awaiting the complete demarcation to finish up and then they will consider surgery at that time Chart reviewed Discussed with RN 07/31/2021 Patient seen and examined Discussed plan Chart reviewed Still feeling weak Mr Lambert is a 60-year-old male that presented 06/29/2021 via [facility] with decreased level of consciousness. Most of the history was obtained via EMS and patient's friend Reese [phone], who states that patient has been sick since about June 22 per Reese, he states that they both had cough cold headache sinus type pain. Per Reese's report patient is okay during the day and very alert and orientated and at night he has a decreased alertness. Patient is unable to help with exam when asked questions he does deny any past medical history, surgeries, or any other health conditions. Don who is his roommate collaborates any information gotten from the patient. Accu-Chek per EMS was 250, room air sat in the room was 88 to 90%. 07/07: not much improved, about the same. cont current. PULM following. we have no clinimix, cont D5 fluid, 07/08: more alert, can try ST again, if able to sit up, still very weak 07/09: much more alert, bedside swallow of water ok, sits upright, much stronger, will try clears if able, ST to follow. toes are worsening, now black, hannah consult podiatry to follow, 07/10: More alert. Working with speech and swallowing today. Off O2. Less confused. Bilateral toe ulcers assessed by podiatry today. 07/11: More alert, eating. Arterial Doppler was left popliteal and severe distal disease bilaterally. Still has a little bit of a cough. Less confused today. 07/12: Eating reasonably well. Tentative plans for angiogram for consideration of limb salvage bilateral feet tomorrow. Discussed with cardiology. He will need significant follow-up care likely eventual amputations. 07/13: N.p.o. for angiogram today with bilateral SFA occlusive disease and left popliteal disease with left posterior tibial artery with some flow otherwise occlusive disease per cardiology. Discussed vascular surgery consultation for consideration of definitive revascularization with likely bilateral transmetatarsal amputations. Still with a little bit of a cough. Shortness of breath 07/14: Seen bedside. Having some pain in his bilateral extremities. Shortness of breath improved still with little bit of cough. Eating again. Amenable to revascularization and likely surgical debridement next week. Increasing thromboprophylaxis 07/15: Seen bedside. Not hypoxic. Cough is improving. He feels he is mental status is improved but he is definitely still mentating slowly. Complains of foot pain. He is contemplating surgical options but is okay with what ever the surgeons to choose for his likely lower extremity bypass tentatively planned for 07/17/202107/16: Bilateral foot pain still with cough but improving. Still is contemplating surgical options. 07/17: Patient off floor for surgery today. Chart evaluated. s/p bilateral pop/tibial thrombectomies with patch angioplasty. s/p RLE hematoma evacuation 07/18: Patient did and examined at bedside. He is postop day 1 from bilateral thrombectomies yesterday. Looks like he may need more surgery prior to discharge. Continue heparin drip. Suspect leukocytosis today secondary to surgery. Continue current. 07/19: Patient evaluated examined at bedside. He was working with physical therapy when seen. Continuing heparin drip. Recheck CBC today. Cardiology following vascular following. Will likely need further surgery prior to discharge. 07/20: Seen at bedside. Having RLE pain and had Hgb drop overnight. Will transfuse. Stop heparin drip for now. Seen by vascular, hematoma evacuation ordered. serial Hgb. 07/21: Patient evaluated examined at bedside. Hemoglobin improved up to 8.1 today. Underwent hematoma evacuation yesterday. Planning for further intervention next week. 07/22: Examine and evaluated at bedside. Resting in bed no major complaints. Hemoglobin stable. Appreciate Cardiology resuming heparin. Further intervention next week. 07/23: Seen at bedside no motor complaints. Hemoglobin still stable. No major clinical changes for today. Intervention this coming week. 07/24: Seen bedside. Has good appetite no cough shortness of breath or chest pain. Left heel with more gangrenous changes left feet. Plan for n.p.o. after midnight 07/25: Seen bedside. N.p.o. for bilateral foot debridement today. K3. Glucose low 100s. Has a friend visiting today. No chest pain or shortness of breath. Pain controlled. 2/2: Changes in the off heparin drip to Xarelto. No significant anticoagulation for 3 months then can start progressive ambulation with physical therapy with postop shoe per vascular surgery recommendations. No shortness of breath or chest pain today just very weak. 2/3: Up to chair today, has more bilateral foot pain, now wearing post -op shoes. No SOB or cough. He is asking to get back into bed. Encouraged to continue trying to get on his feet. 2: In bed. Foot pain is improved from yesterday. No shortness of breath no cough. Still very weak even weak eating today. 07/29: Seen in bed. No foot pain today. No shortness of breath or cough. Still weak eating well. Not out of bed today. Glucose low 100s. 2: Seen in bed. Pain-free eating breakfast in bed. Still feeling weak has been up on his foot the last day. Glucose well controlled. Vitals/I&O Vitals/I&O: Vital Signs Date Time Temp Pulse Resp B/P (MAP) Pulse Ox O2 Delivery O2 Flow Rate FiO2 08/08/21 07:00 97.9 83 18 115/75 (88) 97 Room Air 97.9 I & O 08/07/21 08/07/21 08/08/21 15:00 23:00 07:00 Intake Total 200 ml Balance 200 ml Physical Exam Physical Exam: lethargic and weak General: Alert, Oriented X3, Cooperative, No acute distress, Other (Resting) Heart: Regular rate Lungs: Clear Abdomen: Normal bowel sounds Extremities: Other (Severely black toes please see the pictures) Skin: Other (No further hematoma accumulation) Labs Labs: Laboratory Tests Test 08/07/21 11:33 08/07/21 16:44 08/07/21 20:58 08/08/21 07:10 Glucose (Fingerstick) 107 mg/dL (70-99) 144 mg/dL (70-99) 105 mg/dL (70-99) 92 mg/dL (70-99) Assessment and Plan Assessmemt and Plan Problems Medical Problems: (1) Dehydration Status: Acute (2) Mental status alteration Status: Acute (3) Pneumonia Status: Acute Comment Review of Relevant I have reviewed the following items amanda (where applicable) has been applied. Justifications for Admission Other Justification COVID-19 positive test (U07.1, COVID-19) with Acute Pneumonia (J12.89, Other viral pneumonia) (If respiratory failure or sepsis present, add as separate assessment) SIMONE ARGUELLO MD Aug 08, 2021 09:02
[2021-08-08] MEDS: PANTOPRAZOLE 40 MG TABLET.DR. PO SCH (09:38)
[2021-08-08] MEDS: ASCORBIC ACID 500 MG TABLET PO SCH (09:38)
[2021-08-08] MEDS: ASPIRIN CHEWABLE 81 MG TABLET. PO SCH (09:38)
[2021-08-08] MEDS: ZINC SULFATE 220 MG CAPSULE. PO SCH (09:38)
[2021-08-08] MEDS: METOPROLOL TART IMMED RELEASE 25 MG TABLET. PO SCH ×2 (09:39→21:47)
[2021-08-08] MEDS: THIAMINE 100 MG TABLET. PO SCH (09:39)
[2021-08-08] MEDS: NYSTATIN TOPICAL POWDER 15GM BOTTLE. TP SCH ×2 (09:40→21:00)
--- NOTE | 2021-08-08 10:55 | PDOC ---
DEEPALI BRAR APRN 08/08/21 1054: CARDIO Progress Notes Date and Time Date of Service 08/08/21 Time of Evaluation 1050 Subjective Subjective: No Chest Pain, No shortness of breath, No Palpitations, No Dizziness Vitals Vitals Vital Signs Date Time Temp Pulse Resp B/P (MAP) Pulse Ox O2 Delivery O2 Flow Rate FiO2 08/08/21 09:39 83 115/75 08/08/21 07:00 97.9 18 97 Room Air 97.9 Weight Weight [ ] Input and Output Intake and Output Intake and Output 08/08/21 07:00 Intake Total 200 ml Balance 200 ml Intake Oral 200 ml # Voids 1 Laboratory Labs Laboratory Tests Test 08/07/21 11:33 08/07/21 16:44 08/07/21 20:58 08/08/21 07:10 Glucose (Fingerstick) 107 mg/dL (70-99) 144 mg/dL (70-99) 105 mg/dL (70-99) 92 mg/dL (70-99) Physical Exam HEENT: Neck Supple W Full Motion Chest: Symmetric LUNGS: Clear to Auscultation Heart: RRR (SR) Abdomen: Soft N/T Extremities: Other (trace bilateral LE edema. eschar of bilateral toes ) Neurology: alert, oriented, follow commands Assessment Assessment 1. Acute respiratory failure due to acute COVID infection. improved. now on RA 2. Encephalopathy; CT head without acute findings. improved 3. PAD, subacute thrombotic occlusion of the bilateral popliteal and proximal tibial vessels. s/p bilateral pop/tibial thrombectomy with patch angioplasty 4. 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 Plans to allow more time for healing 5. Hypertension; controlled 6. Anemia requiring transfusion. hgb now stable 7. RLE hematoma; s/p evacuation Recommendations Secondary prevention measures No changes. Continue OAC with Xarelto. Samples provided Consider outpatient ischemia evaluation Justicifation of Admission Dx: Justifications for Admission: Justification of Admission Dx: Yes MALAIKA HOLLIS MD 08/08/214: CARDIO Progress Notes Plan Plan The patient was seen and interviewed as well as examined at the bedside. The chart was reviewed. The case was discussed. Agree with the plan of care. DEEPALI BRAR APRN Aug 08, 2021 10:54 MALAIKA HOLLIS MD Aug 08, 2021 19:34
[2021-08-08 11:00] VITALS: BP 117/65
--- NOTE | 2021-08-08 11:49 | PDOC ---
Provider Note Date of Service: DATE: 08/08/21 TIME: 11:38 Provider Note Provider Note Vascular S: Patient resting in bed he is without complaints. He reports getting up out of bed and ambulating some, with therapy. Pt seen with Dr. Espino. O: Awake and alert VSS, afebrile Respirations nonlabored, room air Right leg incision is clean, dry and intact. Calf soft. Left leg incision is clean, dry and intact . Calf soft. Feet are warm and pink. Right toes with dry, stable gangrene to tips of the toes. Left foot with dry, stable gangrene to all toes and extends to plantar 1st mtp joint area His feet are warm bilaterally, toes seem to be slowly demarcating. Mild improvement in plantar surface of left foot. Bilateral Heel eschar remains unchanged. No bogginess or fluctuance. A/P: 1. 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 2. History of COVID pneumonia. 3. 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 s/p bilateral pop/tibial thrombectomies with patch angioplasty s/p RLE hematoma evacuation He is doing well post procedures. His dry gangrenous changes to both his feet continue to show improvement and demarcation to bilateral feet and heels. Recommend continue to wait for further demarcation, could likely . It is likely with off-loading his heel eschar will slough and more tissue will improve on plantar surface of left foot, giving him a better chance of a TMA healing. This may take several weeks to months. - Continue anticoagulation - Keep incisions clean and dry - Continue to off-load heels. - Continue PT/OT, no restrictions, may place pressure on heels while walking Not sure his discharge plans, if he is going to be here a while I could discuss with surgeon about time frame for surgery regarding his feet if appropriate to do while still here. Justicifation of Admission Dx: Justifications for Admission: Justification of Admission Dx: Yes FRANCIS ALLAN Aug 08, 2021 11:49
[2021-08-08 15:00] VITALS: BP 114/77
[2021-08-08] MEDS: RIVAROXABAN 10 MG TABLET. PO SCH (17:41)
[2021-08-08] MEDS: oxyCODONE/APAP 5/325 1 TAB TABLET PO PRN ×2 (17:41→21:48)
[2021-08-08 19:00] VITALS: BP 119/74
[2021-08-08] MEDS: ATORVASTATIN CALCIUM 20 MG TABLET PO SCH (21:47)
[2021-08-08 23:00] VITALS: BP 125/73
[2021-08-09 03:00] VITALS: BP 106/70
[2021-08-09 07:00] VITALS: BP 123/68
[2021-08-09] MEDS: INSULIN LISPRO 300 UNITS/3 ML VIAL. SQ SCH ×3 (08:00→17:00)
[2021-08-09] MEDS: ZINC SULFATE 220 MG CAPSULE. PO SCH (10:35)
[2021-08-09] MEDS: ASPIRIN CHEWABLE 81 MG TABLET. PO SCH (10:35)
[2021-08-09] MEDS: PANTOPRAZOLE 40 MG TABLET.DR. PO SCH (10:35)
[2021-08-09] MEDS: METOPROLOL TART IMMED RELEASE 25 MG TABLET. PO SCH ×2 (10:37→21:00)
[2021-08-09] MEDS: THIAMINE 100 MG TABLET. PO SCH (10:38)
[2021-08-09] MEDS: ASCORBIC ACID 500 MG TABLET PO SCH (10:38)
[2021-08-09] MEDS: NYSTATIN TOPICAL POWDER 15GM BOTTLE. TP SCH ×2 (10:38→21:00)
--- NOTE | 2021-08-09 10:53 | PDOC ---
DEEPALI BRAR APRN 08/09/21 1053: CARDIO Progress Notes Date and Time Date of Service 08/09/21 Time of Evaluation 1050 Subjective Subjective: No Chest Pain, No shortness of breath, No Palpitations, No Dizziness, Other (up in chair ) Vitals Vitals Vital Signs Date Time Temp Pulse Resp B/P (MAP) Pulse Ox O2 Delivery O2 Flow Rate FiO2 08/09/21 10:37 85 123/68 08/09/21 08:00 Room Air 08/09/21 07:00 97.6 18 95 97.6 Weight Weight [ ] Input and Output Intake and Output Intake and Output 08/09/21 07:00 Intake Total 0 ml Output Total 300 ml Balance -300 ml Intake Oral 0 ml Output Urine Total 300 ml Laboratory Labs Laboratory Tests Test 08/08/21 10:55 08/08/21 16:45 08/08/21 20:41 08/09/21 07:17 Glucose (Fingerstick) 146 mg/dL (70-99) 140 mg/dL (70-99) 101 mg/dL (70-99) 113 mg/dL (70-99) Physical Exam HEENT: Neck Supple W Full Motion Chest: Symmetric LUNGS: Clear to Auscultation Heart: RRR (SR/ST) Abdomen: Soft N/T Extremities: Other (eschar of bilateral toes ) Neurology: alert, oriented, follow commands Assessment Assessment 1. Acute respiratory failure due to acute COVID infection. improved. now on RA 2. Encephalopathy; CT head without acute findings. improved 3. PAD, subacute thrombotic occlusion of the bilateral popliteal and proximal tibial vessels. s/p bilateral pop/tibial thrombectomy with patch angioplasty 4. 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 5. Hypertension; controlled 6. Anemia requiring transfusion. hgb now stable 7. RLE hematoma; s/p evacuation Recommendations Secondary prevention measures Continue anticoagulation therapy Consider outpatient ischemia evaluation Supportive care Follow vascular recommendations Justicifation of Admission Dx: Justifications for Admission: Justification of Admission Dx: Yes MALAIKA HOLLIS MD 08/10/21 0933: CARDIO Progress Notes Plan Plan Late entry for 08/09/21 Pt. seen and examined. Agree with above [employer] note. Doing well overall. Thanks DEEPALI BRAR APRN Aug 09, 2021 10:53 MALAIKA HOLLIS MD Aug 10, 2021 09:33
[2021-08-09 11:00] VITALS: BP 108/71
--- NOTE | 2021-08-09 11:09 | PDOC ---
[facility] [facility] PROGRESS NOTE Date of Service DOS: DATE: 08/09/21 TIME: 11:09 Chief Complaint Chief Complaint Resolving Covid-19 Subacute thrombotic occlusion of the bilateral popliteal and proximal tibial vessels. s/p bilateral pop/tibial thrombectomies with patch angioplasty s/p RLE hematoma evacuation Metabolic cephalopathy Probable Covid toes IVORY Lactic acidosis Dysphagia Malnutrition Heel erythema Poor nail care History of Present Illness History of Present Illness 08/09: Seen sitting in chair today. He is wearing his postoperative shoes feels he is minimally stronger. Short of breath on exertion. 08/08: Seen and examined bedside. He is awaiting therapy evaluation today. Foot pain is well controlled. No worsening erythema or fevers but does have some drainage on the lateral left heel wound. No shortness of breath or chest pain. 08/04/2021 Patient seen and examined He is resting with no apparent distress Discussed with case management Chart reviewed Vascular surgery saw him again yesterday and is hoping to only have to do TMA in the future instead of BKA if we let his feett tissues try to recover for a few weeks Appreciate vascular input. 08/03/2021 Patient seen and examined Laying comfortably in bed with flat affect Bilateral heel protectors present; Dry gangrene present on bilateral toes and heels; Discussed with the wound care nurse Discussed with patient the need for vascular surgery input regarding foot surgery and potential bilateral BKA Chart reviewed Discussed with RN 08/02/2021 Patient seen and examined Discussed with RN Chart reviewed He is resting with no apparent distress 08/01/2021 Patient seen and examined He seems depressed and very weak He has heel protectors on both the toes that are exposed are extremely gangrenous and black and demarcated Discussed with the wound care nurse He explains that vascular surgery is awaiting the complete demarcation to finish up and then they will consider surgery at that time Chart reviewed Discussed with RN 07/31/2021 Patient seen and examined Discussed plan Chart reviewed Still feeling weak Mr Lambert is a 60-year-old male that presented 06/29/2021 via [facility] with decreased level of consciousness. Most of the history was obtained via EMS and patient's friend Reese [phone], who states that patient has been sick since about June 22 per Reese, he states that they both had cough cold headache sinus type pain. Per Reese's report patient is okay during the day and very alert and orientated and at night he has a decreased alertness. Patient is unable to help with exam when asked questions he does deny any past medical history, surgeries, or any other health conditions. Don who is his roommate collaborates any information gotten from the patient. Accu-Chek per EMS was 250, room air sat in the room was 88 to 90%. 07/07: not much improved, about the same. cont current. PULM following. we have no clinimix, cont D5 fluid, 07/08: more alert, can try ST again, if able to sit up, still very weak 07/09: much more alert, bedside swallow of water ok, sits upright, much stronger, will try clears if able, ST to follow. toes are worsening, now black, hannah consult podiatry to follow, 07/10: More alert. Working with speech and swallowing today. Off O2. Less confused. Bilateral toe ulcers assessed by podiatry today. 07/11: More alert, eating. Arterial Doppler was left popliteal and severe distal disease bilaterally. Still has a little bit of a cough. Less confused today. 07/12: Eating reasonably well. Tentative plans for angiogram for consideration of limb salvage bilateral feet tomorrow. Discussed with cardiology. He will need significant follow-up care likely eventual amputations. 07/13: N.p.o. for angiogram today with bilateral SFA occlusive disease and left popliteal disease with left posterior tibial artery with some flow otherwise occlusive disease per cardiology. Discussed vascular surgery consultation for consideration of definitive revascularization with likely bilateral transmetatarsal amputations. Still with a little bit of a cough. Shortness of breath 07/14: Seen bedside. Having some pain in his bilateral extremities. Shortness of breath improved still with little bit of cough. Eating again. Amenable to revascularization and likely surgical debridement next week. Increasing thromboprophylaxis 07/15: Seen bedside. Not hypoxic. Cough is improving. He feels he is mental status is improved but he is definitely still mentating slowly. Complains of foot pain. He is contemplating surgical options but is okay with what ever the surgeons to choose for his likely lower extremity bypass tentatively planned for 07/17/202107/16: Bilateral foot pain still with cough but improving. Still is contemplating surgical options. 07/17: Patient off floor for surgery today. Chart evaluated. s/p bilateral pop/tibial thrombectomies with patch angioplasty. s/p RLE hematoma evacuation 07/18: Patient did and examined at bedside. He is postop day 1 from bilateral thrombectomies yesterday. Looks like he may need more surgery prior to discharge. Continue heparin drip. Suspect leukocytosis today secondary to surgery. Continue current. 07/19: Patient evaluated examined at bedside. He was working with physical therapy when seen. Continuing heparin drip. Recheck CBC today. Cardiology following vascular following. Will likely need further surgery prior to discharge. 07/20: Seen at bedside. Having RLE pain and had Hgb drop overnight. Will transfuse. Stop heparin drip for now. Seen by vascular, hematoma evacuation ordered. serial Hgb. 07/21: Patient evaluated examined at bedside. Hemoglobin improved up to 8.1 today. Underwent hematoma evacuation yesterday. Planning for further intervention next week. 07/22: Examine and evaluated at bedside. Resting in bed no major complaints. Hemoglobin stable. Appreciate Cardiology resuming heparin. Further intervention next week. 07/23: Seen at bedside no motor complaints. Hemoglobin still stable. No major clinical changes for today. Intervention this coming week. 07/24: Seen bedside. Has good appetite no cough shortness of breath or chest pain. Left heel with more gangrenous changes left feet. Plan for n.p.o. after midnight 07/25: Seen bedside. N.p.o. for bilateral foot debridement today. K3. Glucose low 100s. Has a friend visiting today. No chest pain or shortness of breath. Pain controlled. 2/2: Changes in the off heparin drip to Xarelto. No significant anticoagulation for 3 months then can start progressive ambulation with physical therapy with postop shoe per vascular surgery recommendations. No shortness of breath or chest pain today just very weak. 2/3: Up to chair today, has more bilateral foot pain, now wearing post -op shoes. No SOB or cough. He is asking to get back into bed. Encouraged to continue trying to get on his feet. 2: In bed. Foot pain is improved from yesterday. No shortness of breath no cough. Still very weak even weak eating today. 07/29: Seen in bed. No foot pain today. No shortness of breath or cough. Still weak eating well. Not out of bed today. Glucose low 100s. 07/30: Seen in bed. Pain-free eating breakfast in bed. Still feeling weak has been up on his foot the last day. Glucose well controlled. Vitals/I&O Vitals/I&O: Vital Signs Date Time Temp Pulse Resp B/P (MAP) Pulse Ox O2 Delivery O2 Flow Rate FiO2 08/09/21 10:37 85 123/68 08/09/21 08:00 Room Air 08/09/21 07:00 97.6 18 95 97.6 I & O 08/08/21 08/08/21 08/09/21 15:00 23:00 07:00 Intake Total 0 ml Output Total 300 ml Balance -300 ml Physical Exam Physical Exam: lethargic and weak General: Alert, Oriented X3, Cooperative, No acute distress, Other (Resting) Heart: Regular rate Lungs: Clear Abdomen: Normal bowel sounds Extremities: Other (Severely black toes please see the pictures) Skin: Other (No further hematoma accumulation) Labs Labs: Laboratory Tests Test 08/08/21 16:45 08/08/21 20:41 08/09/21 07:17 Glucose (Fingerstick) 140 mg/dL (70-99) 101 mg/dL (70-99) 113 mg/dL (70-99) Assessment and Plan Assessmemt and Plan Problems Medical Problems: (1) Dehydration Status: Acute (2) Mental status alteration Status: Acute (3) Pneumonia Status: Acute Comment Review of Relevant I have reviewed the following items amanda (where applicable) has been applied. Justifications for Admission Other Justification COVID-19 positive test (U07.1, COVID-19) with Acute Pneumonia (J12.89, Other viral pneumonia) (If respiratory failure or sepsis present, add as separate assessment) SIMONE ARGUELLO MD Aug 09, 2021 11:09
--- NOTE | 2021-08-09 13:00 | NUR ---
SW following. Discussed with RN, no change to plan of therapy and awaiting vascular. SW will continue to follow.
[2021-08-09 15:00] VITALS: BP 93/66
[2021-08-09] MEDS: RIVAROXABAN 10 MG TABLET. PO SCH (17:33)
[2021-08-09] MEDS: oxyCODONE/APAP 5/325 1 TAB TABLET PO PRN (17:33)
[2021-08-09 19:59] VITALS: BP 119/70
[2021-08-09] MEDS: ATORVASTATIN CALCIUM 20 MG TABLET PO SCH (21:00)
[2021-08-09 23:51] VITALS: BP 98/61
[2021-08-10 03:33] VITALS: BP 112/70
[2021-08-10 07:00] VITALS: BP 112/68
[2021-08-10] MEDS: INSULIN LISPRO 300 UNITS/3 ML VIAL. SQ SCH ×3 (08:00→17:00)
[2021-08-10] MEDS: PANTOPRAZOLE 40 MG TABLET.DR. PO SCH (08:08)
[2021-08-10] MEDS: ASPIRIN CHEWABLE 81 MG TABLET. PO SCH (08:08)
--- NOTE | 2021-08-10 09:08 | PDOC ---
MAYKELDEEPALI FITCH SAMANTHA 08/10/21 0908: CARDIO Progress Notes Date and Time Date of Service 08/10/21 Time of Evaluation 0900 Subjective Subjective: No Chest Pain, No shortness of breath, No Palpitations, No Dizziness Vitals Vitals Vital Signs Date Time Temp Pulse Resp B/P (MAP) Pulse Ox O2 Delivery O2 Flow Rate FiO2 08/10/21 07:45 Room Air 08/10/21 07:00 97.9 92 18 112/68 (83) 95 97.9 Weight Weight [ ] Input and Output Intake and Output Intake and Output 08/10/21 07:00 Intake Total 420 ml Output Total 350 ml Balance 70 ml Intake Oral 420 ml Output Urine Total 350 ml Laboratory Labs Laboratory Tests Test 08/09/21 11:49 08/09/21 16:58 08/10/21 07:39 Glucose (Fingerstick) 177 mg/dL (70-99) 141 mg/dL (70-99) 98 mg/dL (70-99) Physical Exam HEENT: Neck Supple W Full Motion Chest: Symmetric LUNGS: Clear to Auscultation Heart: RRR (SR) Abdomen: Soft N/T Extremities: Other (eschar of bilateral feet) Neurology: alert, oriented, follow commands Assessment Assessment 1. Acute respiratory failure due to acute COVID infection. resolved 2. Encephalopathy; CT head without acute findings. resolved 3. PAD, subacute thrombotic occlusion of the bilateral popliteal and proximal tibial vessels. s/p bilateral pop/tibial thrombectomy with patch angioplasty 4. 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 5. Hypertension; controlled 6. Anemia requiring transfusion. hgb now stable 7. RLE hematoma; s/p evacuation Recommendations No changes Continue same OAC with Xarelto Increase activities as tolerated Consider outpatient ischemia evaluation Supportive care Justicifation of Admission Dx: Justifications for Admission: Justification of Admission Dx: Yes MALAIKA HOLLIS MD 08/10/21 1537: CARDIO Progress Notes Plan Plan The patient was seen and interviewed as well as examined at the bedside. The chart was reviewed. The case was discussed. Agree with the plan of care. DEEPALI BRAR APRN Aug 10, 2021 09:08 MALAIKA HOLLIS MD Aug 10, 2021 15:37
[2021-08-10] MEDS: ASCORBIC ACID 500 MG TABLET PO SCH (09:26)
[2021-08-10] MEDS: THIAMINE 100 MG TABLET. PO SCH (09:26)
[2021-08-10] MEDS: NYSTATIN TOPICAL POWDER 15GM BOTTLE. TP SCH ×2 (09:26→21:00)
[2021-08-10] MEDS: ZINC SULFATE 220 MG CAPSULE. PO SCH (09:26)
[2021-08-10] MEDS: METOPROLOL TART IMMED RELEASE 25 MG TABLET. PO SCH ×2 (09:26→21:01)
--- NOTE | 2021-08-10 10:16 | PDOC ---
[facility] PROGRESS NOTE Date of Service DOS: DATE: 08/10/21 TIME: 10:15 Chief Complaint Chief Complaint Resolving Covid-19 Subacute thrombotic occlusion of the bilateral popliteal and proximal tibial vessels. s/p bilateral pop/tibial thrombectomies with patch angioplasty s/p RLE hematoma evacuation Metabolic cephalopathy Probable Covid toes IVORY Lactic acidosis Dysphagia Malnutrition Heel erythema Poor nail care History of Present Illness History of Present Illness 08/10/2021 Patient seen and examined exam discussed with case management Discussed with RN Chart reviewed No change clinically still wearing lower extremity protectors the toes are nec rotic as are the heels 08/09: Seen sitting in chair today. He is wearing his postoperative shoes feels he is minimally stronger. Short of breath on exertion. 08/08: Seen and examined bedside. He is awaiting therapy evaluation today. Foot pain is well controlled. No worsening erythema or fevers but does have some drainage on the lateral left heel wound. No shortness of breath or chest pain. 08/04/2021 Patient seen and examined He is resting with no apparent distress Discussed with case management Chart reviewed Vascular surgery saw him again yesterday and is hoping to only have to do TMA in the future instead of BKA if we let his feett tissues try to recover for a few weeks Appreciate vascular input. 08/03/2021 Patient seen and examined Laying comfortably in bed with flat affect Bilateral heel protectors present; Dry gangrene present on bilateral toes and heels; Discussed with the wound care nurse Discussed with patient the need for vascular surgery input regarding foot surgery and potential bilateral BKA Chart reviewed Discussed with RN 08/02/2021 Patient seen and examined Discussed with RN Chart reviewed He is resting with no apparent distress 08/01/2021 Patient seen and examined He seems depressed and very weak He has heel protectors on both the toes that are exposed are extremely gangrenous and black and demarcated Discussed with the wound care nurse He explains that vascular surgery is awaiting the complete demarcation to finish up and then they will consider surgery at that time Chart reviewed Discussed with RN 07/31/2021 Patient seen and examined Discussed plan Chart reviewed Still feeling weak Mr Lambert is a 60-year-old male that presented 06/29/2021 via [facility] with decreased level of consciousness. Most of the history was obtained via EMS and patient's friend Reese [phone], who states that patient has been sick since about June 22 per Reese, he states that they both had cough cold headache sinus type pain. Per Reese's report patient is okay during the day and very alert and orientated and at night he has a decreased alertness. Patient is unable to help with exam when asked questions he does deny any past medical history, surgeries, or any other health conditions. Reese who is his roommate collaborates any information gotten from the patient. Accu-Chek per EMS was 250, room air sat in the room was 88 to 90%. 07/07: not much improved, about the same. cont current. PULM following. we have no clinimix, cont D5 fluid, 07/08: more alert, can try ST again, if able to sit up, still very weak 07/09: much more alert, bedside swallow of water ok, sits upright, much stronger, will try clears if able, ST to follow. toes are worsening, now black, hannah consult podiatry to follow, 07/10: More alert. Working with speech and swallowing today. Off O2. Less confused. Bilateral toe ulcers assessed by podiatry today. 07/11: More alert, eating. Arterial Doppler was left popliteal and severe distal disease bilaterally. Still has a little bit of a cough. Less confused today. 07/12: Eating reasonably well. Tentative plans for angiogram for consideration of limb salvage bilateral feet tomorrow. Discussed with cardiology. He will need significant follow-up care likely eventual amputations. 07/13: N.p.o. for angiogram today with bilateral SFA occlusive disease and left popliteal disease with left posterior tibial artery with some flow otherwise occlusive disease per cardiology. Discussed vascular surgery consultation for consideration of definitive revascularization with likely bilateral transmetatarsal amputations. Still with a little bit of a cough. Shortness of breath 07/14: Seen bedside. Having some pain in his bilateral extremities. Shortness of breath improved still with little bit of cough. Eating again. Amenable to revascularization and likely surgical debridement next week. Increasing thromboprophylaxis 07/15: Seen bedside. Not hypoxic. Cough is improving. He feels he is mental status is improved but he is definitely still mentating slowly. Complains of foot pain. He is contemplating surgical options but is okay with what ever the surgeons to choose for his likely lower extremity bypass tentatively planned for 07/17/202107/16: Bilateral foot pain still with cough but improving. Still is contemplating surgical options. 07/17: Patient off floor for surgery today. Chart evaluated. s/p bilateral pop/tibial thrombectomies with patch angioplasty. s/p RLE hematoma evacuation 07/18: Patient did and examined at bedside. He is postop day 1 from bilateral thrombectomies yesterday. Looks like he may need more surgery prior to discharge. Continue heparin drip. Suspect leukocytosis today secondary to surgery. Continue current. 07/19: Patient evaluated examined at bedside. He was working with physical therapy when seen. Continuing heparin drip. Recheck CBC today. Cardiology following vascular following. Will likely need further surgery prior to discharge. 07/20: Seen at bedside. Having RLE pain and had Hgb drop overnight. Will transfuse. Stop heparin drip for now. Seen by vascular, hematoma evacuation ordered. serial Hgb. 07/21: Patient evaluated examined at bedside. Hemoglobin improved up to 8.1 today. Underwent hematoma evacuation yesterday. Planning for further intervention next week. 07/22: Examine and evaluated at bedside. Resting in bed no major complaints. Hemoglobin stable. Appreciate Cardiology resuming heparin. Further intervention next week. 07/23: Seen at bedside no motor complaints. Hemoglobin still stable. No major clinical changes for today. Intervention this coming week. 07/24: Seen bedside. Has good appetite no cough shortness of breath or chest pain. Left heel with more gangrenous changes left feet. Plan for n.p.o. after midnight 07/25: Seen bedside. N.p.o. for bilateral foot debridement today. K3. Glucose low 100s. Has a friend visiting today. No chest pain or shortness of breath. Pain controlled. 2/2: Changes in the off heparin drip to Xarelto. No significant anticoagulation for 3 months then can start progressive ambulation with physical therapy with postop shoe per vascular surgery recommendations. No shortness of breath or chest pain today just very weak. 2/3: Up to chair today, has more bilateral foot pain, now wearing post -op shoes. No SOB or cough. He is asking to get back into bed. Encouraged to continue trying to get on his feet. 2/4: In bed. Foot pain is improved from yesterday. No shortness of breath no cough. Still very weak even weak eating today. 07/29: Seen in bed. No foot pain today. No shortness of breath or cough. Still weak eating well. Not out of bed today. Glucose low 100s. 07/30: Seen in bed. Pain-free eating breakfast in bed. Still feeling weak has been up on his foot the last day. Glucose well controlled. Vitals/I&O Vitals/I&O: Vital Signs Date Time Temp Pulse Resp B/P (MAP) Pulse Ox O2 Delivery O2 Flow Rate FiO2 08/10/21 09:26 92 112/68 08/10/21 07:45 Room Air 08/10/21 07:00 97.9 18 95 97.9 I & O 08/09/21 08/09/21 08/10/21 15:00 23:00 07:00 Intake Total 420 ml Output Total 350 ml Balance 70 ml Physical Exam Physical Exam: lethargic and weak General: Alert, Oriented X3, Cooperative, No acute distress, Other (Resting) Heart: Regular rate Lungs: Clear Abdomen: Normal bowel sounds Extremities: Other (Severely black toes please see the pictures) Skin: Other (No further hematoma accumulation) Labs Labs: Laboratory Tests Test 08/09/21 11:49 08/09/21 16:58 08/10/21 07:39 Glucose (Fingerstick) 177 mg/dL (70-99) 141 mg/dL (70-99) 98 mg/dL (70-99) Assessment and Plan Assessmemt and Plan Problems Medical Problems: (1) Dehydration Status: Acute (2) Mental status alteration Status: Acute (3) Pneumonia Status: Acute Resolving Covid-19 Subacute thrombotic occlusion of the bilateral popliteal and proximal tibial vessels. s/p bilateral pop/tibial thrombectomies with patch angioplasty s/p RLE hematoma evacuation Metabolic cephalopathy Probable Covid toes IVORY Lactic acidosis Dysphagia Malnutrition Heel erythema Poor nail care Plan Continue close observation of the feet in hopes that the tissues may recover some Wound care of both calf incisions Offloading Trend labs DVT prophylaxis Full code Wound care of the feet We would like to get him to assisted but he does not have insurance In my opinion he will need disability which will qualify him for Medicaid Vascular surgery saw him again yesterday and is hoping to only have to do TMA in the future instead of BKA if we let his feet tissues try to recover for a few weeks Appreciate vascular input. Comment Review of Relevant I have reviewed the following items amanda (where applicable) has been applied. Justifications for Admission Other Justification COVID-19 positive test (U07.1, COVID-19) with Acute Pneumonia (J12.89, Other viral pneumonia) (If respiratory failure or sepsis present, add as separate assessment) GERDA RASMUSSEN III DO Aug 10, 2021 10:16
[2021-08-10 11:00] VITALS: BP 119/75
--- NOTE | 2021-08-10 13:09 | NUR ---
SS following up with discharge planning. SS reviewed pt chart and discussed with pt RN. Pt is currently on room air. COVID19 recovered. No surgical plans at this time. PT/OT continuing to work with pt and pt continuing to need mod to max assistance with therapy. Not ready. Self pay. Med Assist following. SS will continue to follow for discharge planning.
[2021-08-10 15:00] VITALS: BP 114/70
[2021-08-10] MEDS: RIVAROXABAN 10 MG TABLET. PO SCH (17:07)
[2021-08-10 19:00] VITALS: BP 112/62
[2021-08-10] MEDS: ATORVASTATIN CALCIUM 20 MG TABLET PO SCH (21:01)
[2021-08-10] MEDS: oxyCODONE/APAP 5/325 1 TAB TABLET PO PRN (21:02)
[2021-08-10 23:00] VITALS: BP 121/62
[2021-08-11 03:00] VITALS: BP 113/65
[2021-08-11 07:00] VITALS: BP 102/72
[2021-08-11] MEDS: PANTOPRAZOLE 40 MG TABLET.DR. PO SCH (07:42)
[2021-08-11] MEDS: INSULIN LISPRO 300 UNITS/3 ML VIAL. SQ SCH ×3 (08:00→17:00)
[2021-08-11] MEDS: NYSTATIN TOPICAL POWDER 15GM BOTTLE. TP SCH ×2 (09:00→21:39)
[2021-08-11] MEDS: ZINC SULFATE 220 MG CAPSULE. PO SCH (09:08)
[2021-08-11] MEDS: THIAMINE 100 MG TABLET. PO SCH (09:08)
[2021-08-11] MEDS: ASCORBIC ACID 500 MG TABLET PO SCH (09:08)
[2021-08-11] MEDS: METOPROLOL TART IMMED RELEASE 25 MG TABLET. PO SCH ×2 (09:08→21:39)
[2021-08-11] MEDS: ASPIRIN CHEWABLE 81 MG TABLET. PO SCH (09:10)
--- NOTE | 2021-08-11 10:59 | PDOC ---
[facility] PROGRESS NOTE Date of Service DOS: DATE: 08/11/21 TIME: 10:58 Chief Complaint Chief Complaint Resolving Covid-19 Subacute thrombotic occlusion of the bilateral popliteal and proximal tibial vessels. s/p bilateral pop/tibial thrombectomies with patch angioplasty s/p RLE hematoma evacuation Metabolic cephalopathy Probable Covid toes IVORY Lactic acidosis Dysphagia Malnutrition Heel erythema Poor nail care History of Present Illness History of Present Illness 08/11/2021 Patient seen and examined Discussed with RN Chart reviewed Discussed with case management He took 8 steps yesterday 08/10/2021 Patient seen and examined exam discussed with case management Discussed with RN Chart reviewed No change clinically still wearing lower extremity protectors the toes are nec rotic as are the heels 08/09: Seen sitting in chair today. He is wearing his postoperative shoes feels he is minimally stronger. Short of breath on exertion. 08/08: Seen and examined bedside. He is awaiting therapy evaluation today. Foot pain is well controlled. No worsening erythema or fevers but does have some drainage on the lateral left heel wound. No shortness of breath or chest pain. 08/04/2021 Patient seen and examined He is resting with no apparent distress Discussed with case management Chart reviewed Vascular surgery saw him again yesterday and is hoping to only have to do TMA in the future instead of BKA if we let his feett tissues try to recover for a few weeks Appreciate vascular input. 08/03/2021 Patient seen and examined Laying comfortably in bed with flat affect Bilateral heel protectors present; Dry gangrene present on bilateral toes and heels; Discussed with the wound care nurse Discussed with patient the need for vascular surgery input regarding foot surgery and potential bilateral BKA Chart reviewed Discussed with RN 08/02/2021 Patient seen and examined Discussed with RN Chart reviewed He is resting with no apparent distress 08/01/2021 Patient seen and examined He seems depressed and very weak He has heel protectors on both the toes that are exposed are extremely gangrenous and black and demarcated Discussed with the wound care nurse He explains that vascular surgery is awaiting the complete demarcation to finish up and then they will consider surgery at that time Chart reviewed Discussed with RN 07/31/2021 Patient seen and examined Discussed plan Chart reviewed Still feeling weak Mr Lambert is a 60-year-old male that presented 06/29/2021 via [facility] with decreased level of consciousness. Most of the history was obtained via EMS and patient's friend Reese [phone], who states that patient has been sick since about June 22 per Reese, he states that they both had cough cold headache sinus type pain. Per Reese's report patient is okay during the day and very alert and orientated and at night he has a decreased alertness. Patient is unable to help with exam when asked questions he does deny any past medical history, surgeries, or any other health conditions. Reese who is his roommate collaborates any information gotten from the patient. Accu-Chek per EMS was 250, room air sat in the room was 88 to 90%. 07/07: not much improved, about the same. cont current. PULM following. we have no clinimix, cont D5 fluid, 07/08: more alert, can try ST again, if able to sit up, still very weak 07/09: much more alert, bedside swallow of water ok, sits upright, much stronger, will try clears if able, ST to follow. toes are worsening, now black, hannah consult podiatry to follow, 07/10: More alert. Working with speech and swallowing today. Off O2. Less confused. Bilateral toe ulcers assessed by podiatry today. 07/11: More alert, eating. Arterial Doppler was left popliteal and severe distal disease bilaterally. Still has a little bit of a cough. Less confused today. 07/12: Eating reasonably well. Tentative plans for angiogram for consideration of limb salvage bilateral feet tomorrow. Discussed with cardiology. He will need significant follow-up care likely eventual amputations. 07/13: N.p.o. for angiogram today with bilateral SFA occlusive disease and left popliteal disease with left posterior tibial artery with some flow otherwise occlusive disease per cardiology. Discussed vascular surgery consultation for consideration of definitive revascularization with likely bilateral transmetatarsal amputations. Still with a little bit of a cough. Shortness of breath 07/14: Seen bedside. Having some pain in his bilateral extremities. Shortness of breath improved still with little bit of cough. Eating again. Amenable to revascularization and likely surgical debridement next week. Increasing thromboprophylaxis 07/15: Seen bedside. Not hypoxic. Cough is improving. He feels he is mental status is improved but he is definitely still mentating slowly. Complains of foot pain. He is contemplating surgical options but is okay with what ever the surgeons to choose for his likely lower extremity bypass tentatively planned for 07/17/202107/16: Bilateral foot pain still with cough but improving. Still is contemplating surgical options. 07/17: Patient off floor for surgery today. Chart evaluated. s/p bilateral pop/tibial thrombectomies with patch angioplasty. s/p RLE hematoma evacuation 07/18: Patient did and examined at bedside. He is postop day 1 from bilateral thrombectomies yesterday. Looks like he may need more surgery prior to discharge. Continue heparin drip. Suspect leukocytosis today secondary to surgery. Continue current. 07/19: Patient evaluated examined at bedside. He was working with physical therapy when seen. Continuing heparin drip. Recheck CBC today. Cardiology following vascular following. Will likely need further surgery prior to discharge. 07/20: Seen at bedside. Having RLE pain and had Hgb drop overnight. Will transfuse. Stop heparin drip for now. Seen by vascular, hematoma evacuation ordered. serial Hgb. 07/21: Patient evaluated examined at bedside. Hemoglobin improved up to 8.1 today. Underwent hematoma evacuation yesterday. Planning for further intervention next week. 07/22: Examine and evaluated at bedside. Resting in bed no major complaints. Hemoglobin stable. Appreciate Cardiology resuming heparin. Further intervention next week. 07/23: Seen at bedside no motor complaints. Hemoglobin still stable. No major clinical changes for today. Intervention this coming week. 07/24: Seen bedside. Has good appetite no cough shortness of breath or chest pain. Left heel with more gangrenous changes left feet. Plan for n.p.o. after midnight 07/25: Seen bedside. N.p.o. for bilateral foot debridement today. K3. Glucose low 100s. Has a friend visiting today. No chest pain or shortness of breath. Pain controlled. 2/2: Changes in the off heparin drip to Xarelto. No significant anticoagulation for 3 months then can start progressive ambulation with physical therapy with postop shoe per vascular surgery recommendations. No shortness of breath or chest pain today just very weak. 2/3: Up to chair today, has more bilateral foot pain, now wearing post -op shoes. No SOB or cough. He is asking to get back into bed. Encouraged to continue trying to get on his feet. 2: In bed. Foot pain is improved from yesterday. No shortness of breath no cough. Still very weak even weak eating today. 07/29: Seen in bed. No foot pain today. No shortness of breath or cough. Still weak eating well. Not out of bed today. Glucose low 100s. 07/30: Seen in bed. Pain-free eating breakfast in bed. Still feeling weak has been up on his foot the last day. Glucose well controlled. Vitals/I&O Vitals/I&O: Vital Signs Date Time Temp Pulse Resp B/P (MAP) Pulse Ox O2 Delivery O2 Flow Rate FiO2 08/11/21 09:08 63 102/72 08/11/21 07:45 Room Air 08/11/21 07:00 97.9 18 94 97.9 08/10/21 21:02 6.0 I & O 08/10/21 08/10/21 08/11/21 15:00 23:00 07:00 Intake Total 0 ml Output Total 450 ml Balance -450 ml 0 ml Physical Exam Physical Exam: lethargic and weak General: Alert, Oriented X3, Cooperative, No acute distress, Other (Resting) Heart: Regular rate Lungs: Clear Abdomen: Normal bowel sounds Extremities: Other (Severely black toes please see the pictures) Skin: Other (No further hematoma accumulation) Labs Labs: Laboratory Tests Test 08/10/21 16:57 08/10/21 21:04 08/11/21 07:21 Glucose (Fingerstick) 112 mg/dL (70-99) 116 mg/dL (70-99) 94 mg/dL (70-99) Assessment and Plan Assessmemt and Plan Problems Medical Problems: (1) Dehydration Status: Acute (2) Mental status alteration Status: Acute (3) Pneumonia Status: Acute Resolving Covid-19 Subacute thrombotic occlusion of the bilateral popliteal and proximal tibial vessels. s/p bilateral pop/tibial thrombectomies with patch angioplasty s/p RLE hematoma evacuation Metabolic cephalopathy Probable Covid toes IVORY Lactic acidosis Dysphagia Malnutrition Heel erythema Poor nail care Plan Continue close observation of the feet in hopes that the tissues may recover some Wound care of both calf incisions Offloading Trend labs DVT prophylaxis Full code Wound care of the feet We would like to get him to jail but he does not have insurance In my opinion he will need disability which will qualify him for Medicaid Vascular surgery is hoping to only have to do TMA in the future instead of BKA if we let his feet tissues try to recover for a few weeks Appreciate vascular input. Comment Review of Relevant I have reviewed the following items amanda (where applicable) has been applied. Justifications for Admission Other Justification COVID-19 positive test (U07.1, COVID-19) with Acute Pneumonia (J12.89, Other viral pneumonia) (If respiratory failure or sepsis present, add as separate assessment) GERDA RASMUSSEN III DO Aug 11, 2021 10:59
[2021-08-11 11:00] VITALS: BP 116/71
--- NOTE | 2021-08-11 12:42 | NUR ---
SW following. Discussed with RN, pt from home, still requiring extensive work with therapy. SW will continue to follow.
[2021-08-11 15:00] VITALS: BP 120/78
[2021-08-11] MEDS: RIVAROXABAN 10 MG TABLET. PO SCH (17:36)
[2021-08-11 19:00] VITALS: BP 124/67
[2021-08-11] MEDS: ATORVASTATIN CALCIUM 20 MG TABLET PO SCH (21:39)
[2021-08-11 23:00] VITALS: BP 113/70
[2021-08-12] VITALS (7 sets, daily range): BP systolic 109–136; BP diastolic 70–80
[2021-08-12] MEDS: INSULIN LISPRO 300 UNITS/3 ML VIAL. SQ SCH ×3 (07:57→16:56)
[2021-08-12] MEDS: ASCORBIC ACID 500 MG TABLET PO SCH (08:35)
[2021-08-12] MEDS: METOPROLOL TART IMMED RELEASE 25 MG TABLET. PO SCH ×2 (08:36→20:38)
[2021-08-12] MEDS: ZINC SULFATE 220 MG CAPSULE. PO SCH (08:36)
[2021-08-12] MEDS: PANTOPRAZOLE 40 MG TABLET.DR. PO SCH (08:36)
[2021-08-12] MEDS: ASPIRIN CHEWABLE 81 MG TABLET. PO SCH (08:36)
[2021-08-12] MEDS: THIAMINE 100 MG TABLET. PO SCH (08:36)
[2021-08-12] MEDS: NYSTATIN TOPICAL POWDER 15GM BOTTLE. TP SCH ×2 (08:40→21:00)
--- NOTE | 2021-08-12 11:22 | PDOC ---
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 s/p bilateral pop/tibial thrombectomies with patch angioplasty s/p RLE hematoma evacuation Metabolic cephalopathy Probable Covid toes IVORY Lactic acidosis Dysphagia Malnutrition Heel erythema Poor nail care History of Present Illness History of Present Illness 08/12/2021 Patient seen and examined Discussed with RN Chart reviewed Left foot still looks necrotic across the toes and the heel The right foot looks slightly better with slight healing of the heel but the toes are still quite necrotic 08/11/2021 Patient seen and examined Discussed with RN Chart reviewed Discussed with case management He took 8 steps yesterday 08/10/2021 Patient seen and examined exam discussed with case management Discussed with RN Chart reviewed No change clinically still wearing lower extremity protectors the toes are necrotic as are the heels 08/09: Seen sitting in chair today. He is wearing his postoperative shoes feels he is minimally stronger. Short of breath on exertion. 08/08: Seen and examined bedside. He is awaiting therapy evaluation today. Foot pain is well controlled. No worsening erythema or fevers but does have some drainage on the lateral left heel wound. No shortness of breath or chest pain. 08/04/2021 Patient seen and examined He is resting with no apparent distress Discussed with case management Chart reviewed Vascular surgery saw him again yesterday and is hoping to only have to do TMA in the future instead of BKA if we let his feett tissues try to recover for a few weeks Appreciate vascular input. 08/03/2021 Patient seen and examined Laying comfortably in bed with flat affect Bilateral heel protectors present; Dry gangrene present on bilateral toes and heels; Discussed with the wound care nurse Discussed with patient the need for vascular surgery input regarding foot surgery and potential bilateral BKA Chart reviewed Discussed with RN 08/02/2021 Patient seen and examined Discussed with RN Chart reviewed He is resting with no apparent distress 08/01/2021 Patient seen and examined He seems depressed and very weak He has heel protectors on both the toes that are exposed are extremely gangrenous and black and demarcated Discussed with the wound care nurse He explains that vascular surgery is awaiting the complete demarcation to finish up and then they will consider surgery at that time Chart reviewed Discussed with RN 07/31/2021 Patient seen and examined Discussed plan Chart reviewed Still feeling weak Mr Lambert is a 60-year-old male that presented 06/29/2021 via [facility] with decreased level of consciousness. Most of the history was obtained via EMS and patient's friend Reese [phone], who states that patient has been sick since about June 22 per Reese, he states that they both had cough cold headache sinus type pain. Per Reese's report patient is okay during the day and very alert and orientated and at night he has a decreased alertness. Patient is unable to help with exam when asked questions he does deny any past medical hi story, surgeries, or any other health conditions. Reese who is his roommate collaborates any information gotten from the patient. Accu-Chek per EMS was 250, room air sat in the room was 88 to 90%. 07/07: not much improved, about the same. cont current. PULM following. we have no clinimix, cont D5 fluid, 07/08: more alert, can try ST again, if able to sit up, still very weak 07/09: much more alert, bedside swallow of water ok, sits upright, much stronger, will try clears if able, ST to follow. toes are worsening, now black, hannah consult podiatry to follow, 07/10: More alert. Working with speech and swallowing today. Off O2. Less confused. Bilateral toe ulcers assessed by podiatry today. 07/11: More alert, eating. Arterial Doppler was left popliteal and severe distal disease bilaterally. Still has a little bit of a cough. Less confused today. 07/12: Eating reasonably well. Tentative plans for angiogram for consideration of limb salvage bilateral feet tomorrow. Discussed with cardiology. He will need significant follow-up care likely eventual amputations. 07/13: N.p.o. for angiogram today with bilateral SFA occlusive disease and left popliteal disease with left posterior tibial artery with some flow otherwise occlusive disease per cardiology. Discussed vascular surgery consultation for consideration of definitive revascularization with likely bilateral transmetatarsal amputations. Still with a little bit of a cough. Shortness of breath 07/14: Seen bedside. Having some pain in his bilateral extremities. Shortness of breath improved still with little bit of cough. Eating again. Amenable to revascularization and likely surgical debridement next week. Increasing thromboprophylaxis 07/15: Seen bedside. Not hypoxic. Cough is improving. He feels he is mental status is improved but he is definitely still mentating slowly. Complains of foot pain. He is contemplating surgical options but is okay with what ever the surgeons to choose for his likely lower extremity bypass tentatively planned for 07/17/202107/16: Bilateral foot pain still with cough but improving. Still is contemplating surgical options. 07/17: Patient off floor for surgery today. Chart evaluated. s/p bilateral pop/tibial thrombectomies with patch angioplasty. s/p RLE hematoma evacuation 07/18: Patient did and examined at bedside. He is postop day 1 from bilateral thrombectomies yesterday. Looks like he may need more surgery prior to discharge. Continue heparin drip. Suspect leukocytosis today secondary to surgery. Continue current. 07/19: Patient evaluated examined at bedside. He was working with physical therapy when seen. Continuing heparin drip. Recheck CBC today. Cardiology following vascular following. Will likely need further surgery prior to discharge. 07/20: Seen at bedside. Having RLE pain and had Hgb drop overnight. Will transfuse. Stop heparin drip for now. Seen by vascular, hematoma evacuation ordered. serial Hgb. 07/21: Patient evaluated examined at bedside. Hemoglobin improved up to 8.1 today. Underwent hematoma evacuation yesterday. Planning for further intervention next week. 07/22: Examine and evaluated at bedside. Resting in bed no major complaints. Hemoglobin stable. Appreciate Cardiology resuming heparin. Further intervention next week. 07/23: Seen at bedside no motor complaints. Hemoglobin still stable. No major clinical changes for today. Intervention this coming week. 07/24: Seen bedside. Has good appetite no cough shortness of breath or chest pain. Left heel with more gangrenous changes left feet. Plan for n.p.o. after midnight 07/25: Seen bedside. N.p.o. for bilateral foot debridement today. K3. Glucose low 100s. Has a friend visiting today. No chest pain or shortness of breath. Pain controlled. 07/26: Changes in the off heparin drip to Xarelto. No significant anticoagulation for 3 months then can start progressive ambulation with physical therapy with postop shoe per vascular surgery recommendations. No shortness of breath or chest pain today just very weak. 23: Up to chair today, has more bilateral foot pain, now wearing post -op shoes. No SOB or cough. He is asking to get back into bed. Encouraged to continue trying to get on his feet. 07/28: In bed. Foot pain is improved from yesterday. No shortness of breath no cough. Still very weak even weak eating today. 07/29: Seen in bed. No foot pain today. No shortness of breath or cough. Still weak eating well. Not out of bed today. Glucose low 100s. 07/30: Seen in bed. Pain-free eating breakfast in bed. Still feeling weak has been up on his foot the last day. Glucose well controlled. Vitals/I&O Vitals/I&O: Vital Signs Date Time Temp Pulse Resp B/P (MAP) Pulse Ox O2 Delivery O2 Flow Rate FiO2 08/12/21 08:36 86 113/78 08/12/21 08:00 Room Air 08/12/21 07:00 97.7 20 96 97.7 I & O 08/11/21 08/11/21 08/12/21 15:00 23:00 07:00 Output Total 201 ml 0 ml Balance -201 ml 0 ml Physical Exam Physical Exam: lethargic and weak General: Alert, Oriented X3, Cooperative, No acute distress, Other (Resting) Heart: Regular rate Lungs: Clear Abdomen: Normal bowel sounds Extremities: Other (Severely black toes please see the pictures) Skin: Other (No further hematoma accumulation) Labs Labs: Laboratory Tests Test 08/11/21 11:42 08/11/21 17:07 08/11/21 20:31 08/12/21 07:48 Glucose (Fingerstick) 129 mg/dL (70-99) 138 mg/dL (70-99) 143 mg/dL (70-99) 108 mg/dL (70-99) Assessment and Plan Assessmemt and Plan Problems Medical Problems: (1) Dehydration Status: Acute (2) Mental status alteration Status: Acute (3) Pneumonia Status: Acute Resolving Covid-19 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 s/p bilateral pop/tibial thrombectomies with patch angioplasty s/p RLE hematoma evacuation Metabolic cephalopathy Probable Covid toes IVORY Lactic acidosis Dysphagia Malnutrition Heel erythema Poor nail care Plan Continue close observation of the feet in hopes that the tissues may recover some Wound care of both calf incisions Offloading Trend labs DVT prophylaxis Full code Wound care of the feet We would like to get him to alf but he does not have insurance In my opinion he will need disability which will qualify him for Medicaid Vascular surgery is hoping to only have to do TMA in the future instead of BKA if we let his feet tissues try to recover for a few weeks Appreciate vascular input. Comment Review of Relevant I have reviewed the following items amanda (where applicable) has been applied. Justifications for Admission Other Justification COVID-19 positive test (U07.1, COVID-19) with Acute Pneumonia (J12.89, Other viral pneumonia) (If respiratory failure or sepsis present, add as separate assessment) GERDA RASMUSSEN III DO Aug 12, 2021 11:22
[2021-08-12] MEDS: RIVAROXABAN 10 MG TABLET. PO SCH (17:20)
[2021-08-12] MEDS: oxyCODONE/APAP 5/325 1 TAB TABLET PO PRN (19:27)
[2021-08-12] MEDS: ATORVASTATIN CALCIUM 20 MG TABLET PO SCH (20:36)
[2021-08-13] MEDS: oxyCODONE/APAP 5/325 1 TAB TABLET PO PRN ×3 (03:48→20:30)
[2021-08-13 03:53] VITALS: BP 118/72
--- NOTE | 2021-08-13 06:20 | NUR ---
RN went to enter re-eval of 0345 pain med - no record of med having been given in [facility] - RN did scan. RN went to [facility] to see when med was pulled - no record of 2 tabs of percocet being pulled at 0345. RN called pharmacy to verify time pulled as [facility] did not save scan. Erin infromed RN of when med pulled - RN manually entered time administered and verified time with Erin, pharmacist.
[2021-08-13 07:00] VITALS: BP 110/73
[2021-08-13] MEDS: INSULIN LISPRO 300 UNITS/3 ML VIAL. SQ SCH ×3 (07:33→17:00)
[2021-08-13] MEDS: NYSTATIN TOPICAL POWDER 15GM BOTTLE. TP SCH ×2 (09:00→20:28)
[2021-08-13] MEDS: DOCUSATE SODIUM 100 MG CAPSULE. PO PRN (09:08)
[2021-08-13] MEDS: SENNOSIDES 8.6 MG TABLET PO PRN (09:08)
[2021-08-13] MEDS: ZINC SULFATE 220 MG CAPSULE. PO SCH (09:09)
[2021-08-13] MEDS: ASPIRIN CHEWABLE 81 MG TABLET. PO SCH (09:09)
[2021-08-13] MEDS: PANTOPRAZOLE 40 MG TABLET.DR. PO SCH (09:09)
[2021-08-13] MEDS: METOPROLOL TART IMMED RELEASE 25 MG TABLET. PO SCH ×2 (09:09→21:00)
[2021-08-13] MEDS: THIAMINE 100 MG TABLET. PO SCH (09:09)
[2021-08-13] MEDS: ASCORBIC ACID 500 MG TABLET PO SCH (09:09)
[2021-08-13 11:00] VITALS: BP 124/83
--- NOTE | 2021-08-13 12:27 | PDOC ---
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 s/p bilateral pop/tibial thrombectomies with patch angioplasty s/p RLE hematoma evacuation Metabolic cephalopathy Probable Covid toes IVORY Lactic acidosis Dysphagia Malnutrition Heel erythema Poor nail care History of Present Illness History of Present Illness 08/13/2019 Patient seen and examined He is up in the chair His nurse states he was able to walk to the bathroom twice His feet both still look necrotic Discussed with RN Chart reviewed 08/12/2021 Patient seen and examined Discussed with RN Chart reviewed Left foot still looks necrotic across the toes and the heel The right foot looks slightly better with slight healing of the heel but the toes are still quite necrotic 08/11/2021 Patient seen and examined Discussed with RN Chart reviewed Discussed with case management He took 8 steps yesterday 08/10/2021 Patient seen and examined exam discussed with case management Discussed with RN Chart reviewed No change clinically still wearing lower extremity protectors the toes are necrotic as are the heels 2: Seen sitting in chair today. He is wearing his postoperative shoes feels he is minimally stronger. Short of breath on exertion. 08/08: Seen and examined bedside. He is awaiting therapy evaluation today. Foot pain is well controlled. No worsening erythema or fevers but does have some drainage on the lateral left heel wound. No shortness of breath or chest pain. 08/04/2021 Patient seen and examined He is resting with no apparent distress Discussed with case management Chart reviewed Vascular surgery saw him again yesterday and is hoping to only have to do TMA in the future instead of BKA if we let his feett tissues try to recover for a few weeks Appreciate vascular input. 08/03/2021 Patient seen and examined Laying comfortably in bed with flat affect Bilateral heel protectors present; Dry gangrene present on bilateral toes and heels; Discussed with the wound care nurse Discussed with patient the need for vascular surgery input regarding foot surgery and potential bilateral BKA Chart reviewed Discussed with RN 08/02/2021 Patient seen and examined Discussed with RN Chart reviewed He is resting with no apparent distress 08/01/2021 Patient seen and examined He seems depressed and very weak He has heel protectors on both the toes that are exposed are extremely gangrenous and black and demarcated Discussed with the wound care nurse He explains that vascular surgery is awaiting the complete demarcation to finish up and then they will consider surgery at that time Chart reviewed Discussed with RN 07/31/2021 Patient seen and examined Discussed plan Chart reviewed Still feeling weak Mr Lambert is a 60-year-old male that presented 06/29/2021 via [facility] with decreased level of consciousness. Most of the history was obtained via EMS and patient's friend Reese [phone], who states that patient has been sick since about June 22 per Reese, he states that they both had cough cold headache sinus type pain. Per Reese's report patient is okay during the day and very alert and orientated and at night he has a decreased alertness. Patient is unable to help with exam when asked questions he does deny any past medical history, surgeries, or any other health conditions. Reese who is his roommate collaborates any information gotten from the patient. Accu-Chek per EMS was 250, room air sat in the room was 88 to 90%. 07/07: not much improved, about the same. cont current. PULM following. we have no clinimix, cont D5 fluid, 07/08: more alert, can try ST again, if able to sit up, still very weak 07/09: much more alert, bedside swallow of water ok, sits upright, much stronger, will try clears if able, ST to follow. toes are worsening, now black, hannah consult podiatry to follow, 07/10: More alert. Working with speech and swallowing today. Off O2. Less confused. Bilateral toe ulcers assessed by podiatry today. 07/11: More alert, eating. Arterial Doppler was left popliteal and severe distal disease bilaterally. Still has a little bit of a cough. Less confused today. 07/12: Eating reasonably well. Tentative plans for angiogram for consideration of limb salvage bilateral feet tomorrow. Discussed with cardiology. He will need significant follow-up care likely eventual amputations. 07/13: N.p.o. for angiogram today with bilateral SFA occlusive disease and left popliteal disease with left posterior tibial artery with some flow otherwise occlusive disease per cardiology. Discussed vascular surgery consultation for consideration of definitive revascularization with likely bilateral transmetatarsal amputations. Still with a little bit of a cough. Shortness of breath 07/14: Seen bedside. Having some pain in his bilateral extremities. Shortness of breath improved still with little bit of cough. Eating again. Amenable to revascularization and likely surgical debridement next week. Increasing thromboprophylaxis 07/15: Seen bedside. Not hypoxic. Cough is improving. He feels he is mental status is improved but he is definitely still mentating slowly. Complains of foot pain. He is contemplating surgical options but is okay with what ever the surgeons to choose for his likely lower extremity bypass tentatively planned for 07/17/202107/16: Bilateral foot pain still with cough but improving. Still is contemplating surgical options. 07/17: Patient off floor for surgery today. Chart evaluated. s/p bilateral pop/tibial thrombectomies with patch angioplasty. s/p RLE hematoma evacuation 07/18: Patient did and examined at bedside. He is postop day 1 from bilateral thrombectomies yesterday. Looks like he may need more surgery prior to discharge. Continue heparin drip. Suspect leukocytosis today secondary to surgery. Continue current. 07/19: Patient evaluated examined at bedside. He was working with physical therapy when seen. Continuing heparin drip. Recheck CBC today. Cardiology following vascular following. Will likely need further surgery prior to discharge. 07/20: Seen at bedside. Having RLE pain and had Hgb drop overnight. Will transfuse. Stop heparin drip for now. Seen by vascular, hematoma evacuation ordered. serial Hgb. 07/21: Patient evaluated examined at bedside. Hemoglobin improved up to 8.1 today. Underwent hematoma evacuation yesterday. Planning for further intervention next week. 07/22: Examine and evaluated at bedside. Resting in bed no major complaints. Hemoglobin stable. Appreciate Cardiology resuming heparin. Further intervention next week. 07/23: Seen at bedside no motor complaints. Hemoglobin still stable. No major c linical changes for today. Intervention this coming week. 07/24: Seen bedside. Has good appetite no cough shortness of breath or chest pain. Left heel with more gangrenous changes left feet. Plan for n.p.o. after midnight 07/25: Seen bedside. N.p.o. for bilateral foot debridement today. K3. Glucose low 100s. Has a friend visiting today. No chest pain or shortness of breath. Pain controlled. : Changes in the off heparin drip to Xarelto. No significant anticoagulation for 3 months then can start progressive ambulation with physical therapy with postop shoe per vascular surgery recommendations. No shortness of breath or patrice st pain today just very weak. 2: Up to chair today, has more bilateral foot pain, now wearing post -op shoes. No SOB or cough. He is asking to get back into bed. Encouraged to continue trying to get on his feet. 07/28: In bed. Foot pain is improved from yesterday. No shortness of breath no cough. Still very weak even weak eating today. 07/29: Seen in bed. No foot pain today. No shortness of breath or cough. Still weak eating well. Not out of bed today. Glucose low 100s. 07/30: Seen in bed. Pain-free eating breakfast in bed. Still feeling weak has been up on his foot the last day. Glucose well controlled. Vitals/I&O Vitals/I&O: Vital Signs Date Time Temp Pulse Resp B/P (MAP) Pulse Ox O2 Delivery O2 Flow Rate FiO2 08/13/21 09:09 72 110/73 08/13/21 08:00 Room Air 08/13/21 07:00 98.0 16 98 98.0 I & O 08/12/21 08/12/21 08/13/21 15:00 23:00 07:00 Intake Total 200 ml 100 ml Output Total 350 ml 200 ml 300 ml Balance -150 ml -100 ml -300 ml Physical Exam Physical Exam: lethargic and weak General: Alert, Oriented X3, Cooperative, No acute distress, Other (Resting) Heart: Regular rate Lungs: Clear Abdomen: Normal bowel sounds Extremities: Other (Severely black toes please see the pictures) Skin: Other (No further hematoma accumulation) Labs Labs: Laboratory Tests Test 08/12/21 16:34 08/13/21 11:54 Glucose (Fingerstick) 136 mg/dL (70-99) 168 mg/dL (70-99) Assessment and Plan Assessmemt and Plan Problems Medical Problems: (1) Dehydration Status: Acute (2) Mental status alteration Status: Acute (3) Pneumonia Status: Acute Resolving Covid-19 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 s/p bilateral pop/tibial thrombectomies with patch angioplasty s/p RLE hematoma evacuation Metabolic cephalopathy Probable Covid toes IVORY Lactic acidosis Dysphagia Malnutrition Heel erythema and necrosis Poor nail care Plan Continue close observation of the feet in hopes that the tissues may recover some Wound care of both calf incisions Offloading Trend labs DVT prophylaxis Full code Wound care of the feet We would like to get him to [facility] but he does not have insurance In my opinion he will need disability which will qualify him for Medicaid Vascular surgery is hoping to only have to do TMA in the future instead of BKA if we let his feet tissues try to recover for a few weeks Appreciate vascular input. Comment Review of Relevant I have reviewed the following items amanda (where applicable) has been applied. Justifications for Admission Other Justification COVID-19 positive test (U07.1, COVID-19) with Acute Pneumonia (J12.89, Other viral pneumonia) (If respiratory failure or sepsis present, add as separate assessment) GERDA RASMUSSEN III DO Aug 13, 2021 12:26
[2021-08-13 15:00] VITALS: BP 130/76
[2021-08-13] MEDS: RIVAROXABAN 10 MG TABLET. PO SCH (17:27)
[2021-08-13 19:00] VITALS: BP 95/66
[2021-08-13] MEDS: ATORVASTATIN CALCIUM 20 MG TABLET PO SCH (20:27)
[2021-08-13 23:00] VITALS: BP 118/71
[2021-08-14 02:51] VITALS: BP 112/76
[2021-08-14 07:00] VITALS: BP 132/79
[2021-08-14] MEDS: INSULIN LISPRO 300 UNITS/3 ML VIAL. SQ SCH ×3 (07:38→17:00)
[2021-08-14] MEDS: ASPIRIN CHEWABLE 81 MG TABLET. PO SCH (07:40)
[2021-08-14] MEDS: PANTOPRAZOLE 40 MG TABLET.DR. PO SCH (07:40)
[2021-08-14] MEDS: NYSTATIN TOPICAL POWDER 15GM BOTTLE. TP SCH ×2 (09:00→21:00)
[2021-08-14] MEDS: ASCORBIC ACID 500 MG TABLET PO SCH (09:17)
[2021-08-14] MEDS: THIAMINE 100 MG TABLET. PO SCH (09:17)
[2021-08-14] MEDS: ZINC SULFATE 220 MG CAPSULE. PO SCH (09:17)
[2021-08-14] MEDS: METOPROLOL TART IMMED RELEASE 25 MG TABLET. PO SCH ×2 (09:18→20:23)
--- NOTE | 2021-08-14 10:57 | PDOC ---
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 s/p bilateral pop/tibial thrombectomies with patch angioplasty s/p RLE hematoma evacuation Metabolic cephalopathy Probable Covid toes IVORY Lactic acidosis Dysphagia Malnutrition Heel erythema Poor nail care History of Present Illness History of Present Illness 08/14/2021 Patient seen and examined Discussed with RN Chart reviewed I called the vascular surgery nurse practitioner to see if they could take the janet out They said they would come later today to check on that (appreciate their help) 08/13/2019 Patient seen and examined He is up in the chair His nurse states he was able to walk to the bathroom twice His feet both still look necrotic Discussed with RN Chart reviewed 08/12/2021 Patient seen and examined Discussed with RN Chart reviewed Left foot still looks necrotic across the toes and the heel The right foot looks slightly better with slight healing of the heel but the toes are still quite necrotic 08/11/2021 Patient seen and examined Discussed with RN Chart reviewed Discussed with case management He took 8 steps yesterday 08/10/2021 Patient seen and examined exam discussed with case management Discussed with RN Chart reviewed No change clinically still wearing lower extremity protectors the toes are necrotic as are the heels 08/09: Seen sitting in chair today. He is wearing his postoperative shoes feels he is minimally stronger. Short of breath on exertion. 08/08: Seen and examined bedside. He is awaiting therapy evaluation today. Foot pain is well controlled. No worsening erythema or fevers but does have some drainage on the lateral left heel wound. No shortness of breath or chest pain. 08/04/2021 Patient seen and examined He is resting with no apparent distress Discussed with case management Chart reviewed Vascular surgery saw him again yesterday and is hoping to only have to do TMA in the future instead of BKA if we let his feett tissues try to recover for a few weeks Appreciate vascular input. 08/03/2021 Patient seen and examined Laying comfortably in bed with flat affect Bilateral heel protectors present; Dry gangrene present on bilateral toes and heels; Discussed with the wound care nurse Discussed with patient the need for vascular surgery input regarding foot somers rgery and potential bilateral BKA Chart reviewed Discussed with RN 08/02/2021 Patient seen and examined Discussed with RN Chart reviewed He is resting with no apparent distress 08/01/2021 Patient seen and examined He seems depressed and very weak He has heel protectors on both the toes that are exposed are extremely gangrenous and black and demarcated Discussed with the wound care nurse He explains that vascular surgery is awaiting the complete demarcation to finish up and then they will consider surgery at that time Chart reviewed Discussed with RN 07/31/2021 Patient seen and examined Discussed plan Chart reviewed Still feeling weak Mr Lambert is a 60-year-old male that presented 06/29/2021 via [facility] with decreased level of consciousness. Most of the history was obtained via EMS and patient's friend Reese [phone], who states that patient has been sick since about June 22 per Reese, he states that they both had cough cold headache sinus type pain. Per Reese's report patient is okay during the day and very alert and orientated and at night he has a decreased alertness. Patient is unable to help with exam when asked questions he does deny any past medical history, surgeries, or any other health conditions. Reese who is his roommate collaborates any information gotten from the patient. Accu-Chek per EMS was 250, room air sat in the room was 88 to 90%. 07/07: not much improved, about the same. cont current. PULM following. we have no clinimix, cont D5 fluid, 07/08: more alert, can try ST again, if able to sit up, still very weak 07/09: much more alert, bedside swallow of water ok, sits upright, much strong er, will try clears if able, ST to follow. toes are worsening, now black, hannah consult podiatry to follow, 07/10: More alert. Working with speech and swallowing today. Off O2. Less confused. Bilateral toe ulcers assessed by podiatry today. 07/11: More alert, eating. Arterial Doppler was left popliteal and severe distal disease bilaterally. Still has a little bit of a cough. Less confused today. 07/12: Eating reasonably well. Tentative plans for angiogram for consideration of limb salvage bilateral feet tomorrow. Discussed with cardiology. He will need significant follow-up care likely eventual amputations. 07/13: N.p.o. for angiogram today with bilateral SFA occlusive disease and left popliteal disease with left posterior tibial artery with some flow otherwise occlusive disease per cardiology. Discussed vascular surgery consultation for consideration of definitive revascularization with likely bilateral transmetatarsal amputations. Still with a little bit of a cough. Shortness of breath 07/14: Seen bedside. Having some pain in his bilateral extremities. Shortness of breath improved still with little bit of cough. Eating again. Amenable to revascularization and likely surgical debridement next week. Increasing thromboprophylaxis 07/15: Seen bedside. Not hypoxic. Cough is improving. He feels he is mental status is improved but he is definitely still mentating slowly. Complains of foot pain. He is contemplating surgical options but is okay with what ever the surgeons to choose for his likely lower extremity bypass tentatively planned for 07/17/202107/16: Bilateral foot pain still with cough but improving. Still is contemp lating surgical options. 07/17: Patient off floor for surgery today. Chart evaluated. s/p bilateral pop/tibial thrombectomies with patch angioplasty. s/p RLE hematoma evacuation 07/18: Patient did and examined at bedside. He is postop day 1 from bilateral thrombectomies yesterday. Looks like he may need more surgery prior to discharge. Continue heparin drip. Suspect leukocytosis today secondary to surgery. Continue current. 07/19: Patient evaluated examined at bedside. He was working with physical education aide tiay when seen. Continuing heparin drip. Recheck CBC today. Cardiology following vascular following. Will likely need further surgery prior to discharge. 07/20: Seen at bedside. Having RLE pain and had Hgb drop overnight. Will transfuse. Stop heparin drip for now. Seen by vascular, hematoma evacuation ordered. serial Hgb. 07/21: Patient evaluated examined at bedside. Hemoglobin improved up to 8.1 today. Underwent hematoma evacuation yesterday. Planning for further intervention next week. 07/22: Examine and evaluated at bedside. Resting in bed no major complaints. Hemoglobin stable. Appreciate Cardiology resuming heparin. Further intervention next week. 07/23: Seen at bedside no motor complaints. Hemoglobin still stable. No major clinical changes for today. Intervention this coming week. 07/24: Seen bedside. Has good appetite no cough shortness of breath or chest pain. Left heel with more gangrenous changes left feet. Plan for n.p.o. after midnight 07/25: Seen bedside. N.p.o. for bilateral foot debridement today. K3. Glucose low 100s. Has a friend visiting today. No chest pain or shortness of breath. Pain controlled. 07/26: Changes in the off heparin drip to Xarelto. No significant anticoagulation for 3 months then can start progressive ambulation with physical therapy with postop shoe per vascular surgery recommendations. No shortness of breath or chest pain today just very weak. 2: Up to chair today, has more bilateral foot pain, now wearing post -op shoes. No SOB or cough. He is asking to get back into bed. Encouraged to continue trying to get on his feet. 07/28: In bed. Foot pain is improved from yesterday. No shortness of breath no cough. Still very weak even weak eating today. 07/29: Seen in bed. No foot pain today. No shortness of breath or cough. Still weak eating well. Not out of bed today. Glucose low 100s. 07/30: Seen in bed. Pain-free eating breakfast in bed. Still feeling weak has been up on his foot the last day. Glucose well controlled. Vitals/I&O Vitals/I&O: Vital Signs Date Time Temp Pulse Resp B/P (MAP) Pulse Ox O2 Delivery O2 Flow Rate FiO2 08/14/21 09:18 100 132/79 08/14/21 07:43 Room Air 08/14/21 07:00 97.8 18 96 97.8 08/13/21 18:43 6.0 I & O 08/13/21 08/13/21 08/14/21 15:00 23:00 07:00 Intake Total 450 ml 200 ml Output Total 300 ml 350 ml Balance 150 ml -150 ml Physical Exam Physical Exam: lethargic and weak General: Alert, Oriented X3, Cooperative, No acute distress, Other (Resting) Heart: Regular rate Lungs: Clear Abdomen: Normal bowel sounds Extremities: Other (Severely black toes please see the pictures) Skin: Other (No further hematoma accumulation) Labs Labs: Laboratory Tests Test 08/13/21 11:54 08/13/21 17:08 08/14/21 07:24 Glucose (Fingerstick) 168 mg/dL (70-99) 146 mg/dL (70-99) 104 mg/dL (70-99) Assessment and Plan Assessmemt and Plan Problems Medical Problems: (1) Dehydration Status: Acute (2) Mental status alteration Status: Acute (3) Pneumonia Status: Acute Resolving Covid-19 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 s/p bilateral pop/tibial thrombectomies with patch angioplasty s/p RLE hematoma evacuation Metabolic cephalopathy Probable Covid toes IVORY Lactic acidosis Dysphagia Malnutrition Heel erythema and necrosis Poor nail care Plan Continue close observation of the feet in hopes that the tissues may recover some Wound care of both calf incisions Offloading Trend labs DVT prophylaxis Full code Wound care of the feet We would like to get him to alf but he does not have insurance In my opinion he will need disability which will qualify him for Medicaid Vascular surgery is hoping to only have to do TMA in the future instead of BKA if we let his feet tissues try to recover for a few weeks (today they are consider of taking the janet out) Appreciate vascular input. Comment Review of Relevant I have reviewed the following items amanda (where applicable) has been applied. Justifications for Admission Other Justification COVID-19 positive test (U07.1, COVID-19) with Acute Pneumonia (J12.89, Other viral pneumonia) (If respiratory failure or sepsis present, add as separate assessment) GERDA RASMUSSEN III DO Aug 14, 2021 10:57
[2021-08-14] MEDS: ANTI-COAG MONITOR BY PHARMACY. MC PRN (10:58)
[2021-08-14 11:00] VITALS: BP 111/77
--- NOTE | 2021-08-14 11:58 | NUR ---
SW following. Discussed with RN, pt from home alone, room air, cardiac diet, COVID-19 positive. Pt had surgery on 08/11/21. Therapy recommending SNF. SW awaiting return call from [facility] to determine if they are in network with pt's insurance. MYLENE will continue to follow. Addendum: 08/14/21 at 1203 by WILDA CHAKRABORTY ABOVE NOTE ON INCORRECT PATIENT Pt from home with mother, janet being removed today. Awaiting plan of care. Family work with [employer] for Medicaid. MYLENE will continue to follow.
--- NOTE | 2021-08-14 13:08 | PDOC ---
Provider Note Date of Service: DATE: 08/14/21 TIME: 13:08 Provider Note Provider Note Patient evaluated today. His bilateral calf incisions are well-healed. We will remove his janet. Toes and right heel persistently gangrenous and to be addressed by podiatry per the patient. Anna Lindsey DO Justicifation of Admission Dx: Justifications for Admission: Justification of Admission Dx: Yes ANNA LINDSEY DO Aug 14, 2021 13:08
[2021-08-14 15:00] VITALS: BP 105/69
[2021-08-14] MEDS: RIVAROXABAN 10 MG TABLET. PO SCH (17:02)
[2021-08-14 19:00] VITALS: BP 114/71
[2021-08-14] MEDS: ATORVASTATIN CALCIUM 20 MG TABLET PO SCH (20:22)
[2021-08-14] MEDS: oxyCODONE/APAP 5/325 1 TAB TABLET PO PRN (20:23)
[2021-08-14 23:01] VITALS: BP 104/68
[2021-08-15 03:11] VITALS: BP 114/73
[2021-08-15 07:00] VITALS: BP 121/75
[2021-08-15] MEDS: PANTOPRAZOLE 40 MG TABLET.DR. PO SCH (07:21)
[2021-08-15] MEDS: ASPIRIN CHEWABLE 81 MG TABLET. PO SCH (07:21)
[2021-08-15] MEDS: INSULIN LISPRO 300 UNITS/3 ML VIAL. SQ SCH ×3 (08:00→17:00)
[2021-08-15] MEDS: THIAMINE 100 MG TABLET. PO SCH (08:48)
[2021-08-15] MEDS: ZINC SULFATE 220 MG CAPSULE. PO SCH (08:48)
[2021-08-15] MEDS: ASCORBIC ACID 500 MG TABLET PO SCH (08:48)
[2021-08-15] MEDS: METOPROLOL TART IMMED RELEASE 25 MG TABLET. PO SCH ×2 (08:49→21:43)
[2021-08-15] MEDS: NYSTATIN TOPICAL POWDER 15GM BOTTLE. TP SCH ×2 (08:50→21:45)
--- NOTE | 2021-08-15 10:16 | PDOC ---
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 s/p bilateral pop/tibial thrombectomies with patch angioplasty s/p RLE hematoma evacuation Metabolic cephalopathy Probable Covid toes IVORY Lactic acidosis Dysphagia Malnutrition Heel erythema Poor nail care History of Present Illness History of Present Illness 08/15/21 Patient seen and examined [place] removed yesterday, incision site looks good IV came out, will leave out unless need arises Discussed w RN Chart reviewed 08/14/2021 Patient seen and examined Discussed with RN Chart reviewed I called the vascular surgery nurse practitioner to see if they could take the janet out They said they would come later today to check on that (appreciate their help) 08/13/2019 Patient seen and examined He is up in the chair His nurse states he was able to walk to the bathroom twice His feet both still look necrotic Discussed with RN Chart reviewed 08/12/2021 Patient seen and examined Discussed with RN Chart reviewed Left foot still looks necrotic across the toes and the heel The right foot looks slightly better with slight healing of the heel but the toes are still quite necrotic 08/11/2021 Patient seen and examined Discussed with RN Chart reviewed Discussed with case management He took 8 steps yesterday 08/10/2021 Patient seen and examined exam discussed with case management Discussed with RN Chart reviewed No change clinically still wearing lower extremity protectors the toes are necrotic as are the heels 2: Seen sitting in chair today. He is wearing his postoperative shoes feels he is minimally stronger. Short of breath on exertion. 08/08: Seen and examined bedside. He is awaiting therapy evaluation today. Foot pain is well controlled. No worsening erythema or fevers but does have some drainage on the lateral left heel wound. No shortness of breath or chest pain. 08/04/2021 Patient seen and examined He is resting with no apparent distress Discussed with case management Chart reviewed Vascular surgery saw him again yesterday and is hoping to only have to do TMA in the future instead of BKA if we let his feett tissues try to recover for a few weeks Appreciate vascular input. 08/03/2021 Patient seen and examined Laying comfortably in bed with flat affect Bilateral heel protectors present; Dry gangrene present on bilateral toes and heels; Discussed with the wound care nurse Discussed with patient the need for vascular surgery input regarding foot surgery and potential bilateral BKA Chart reviewed Discussed with RN 08/02/2021 Patient seen and examined Discussed with RN Chart reviewed He is resting with no apparent distress 08/01/2021 Patient seen and examined He seems depressed and very weak He has heel protectors on both the toes that are exposed are extremely gangrenous and black and demarcated Discussed with the wound care nurse He explains that vascular surgery is awaiting the complete demarcation to finish up and then they will consider surgery at that time Chart reviewed Discussed with RN 07/31/2021 Patient seen and examined Discussed plan Chart reviewed Still feeling weak Mr Lambert is a 60-year-old male that presented 06/29/2021 via [facility] with decreased level of consciousness. Most of the history was obtained via EMS and patient's friend Reese [phone], who states that patient has been sick since about June 22 per Reese, he states that they both had cough cold headache sinus type pain. Per Reese's report patient is okay during the day and very alert and orientated and at night he has a decreased alertness. Patient is unable to help with exam when asked questions he does deny any past medical history, surgeries, or any other health conditions. Reese who is his roommate collaborates any information gotten from the patient. Accu-Chek per EMS was 250, room air sat in the room was 88 to 90%. 07/07: not much improved, about the same. cont current. PULM following. we have no clinimix, cont D5 fluid, 07/08: more alert, can try ST again, if able to sit up, still very weak 07/09: much more alert, bedside swallow of water ok, sits upright, much stronger, will try clears if able, ST to follow. toes are worsening, now black, hannah consult podiatry to follow, 07/10: More alert. Working with speech and swallowing today. Off O2. Less confused. Bilateral toe ulcers assessed by podiatry today. 07/11: More alert, eating. Arterial Doppler was left popliteal and severe distal disease bilaterally. Still has a little bit of a cough. Less confused today. 07/12: Eating reasonably well. Tentative plans for angiogram for consideration of limb salvage bilateral feet tomorrow. Discussed with cardiology. He will need significant follow-up care likely eventual amputations. 07/13: N.p.o. for angiogram today with bilateral SFA occlusive disease and left popliteal disease with left posterior tibial artery with some flow otherwise occlusive disease per cardiology. Discussed vascular surgery consultation for consideration of definitive revascularization with likely bilateral transmetatarsal amputations. Still with a little bit of a cough. Shortness of breath 07/14: Seen bedside. Having some pain in his bilateral extremities. Shortness of breath improved still with little bit of cough. Eating again. Amenable to revascularization and likely surgical debridement next week. Increasing thromboprophylaxis 07/15: Seen bedside. Not hypoxic. Cough is improving. He feels he is mental status is improved but he is definitely still mentating slowly. Complains of foot pain. He is contemplating surgical options but is okay with what ever the surgeons to choose for his likely lower extremity bypass tentatively planned for 07/17/202107/16: Bilateral foot pain still with cough but improving. Still is contemplating surgical options. 07/17: Patient off floor for surgery today. Chart evaluated. s/p bilateral pop/tibial thrombectomies with patch angioplasty. s/p RLE hematoma evacuation 07/18: Patient did and examined at bedside. He is postop day 1 from bilateral thrombectomies yesterday. Looks like he may need more surgery prior to discharge. Continue heparin drip. Suspect leukocytosis today secondary to surgery. Continue current. 07/19: Patient evaluated examined at bedside. He was working with physical therapy when seen. Continuing heparin drip. Recheck CBC today. Cardiology following vascular following. Will likely need further surgery prior to discharge. 07/20: Seen at bedside. Having RLE pain and had Hgb drop overnight. Will transfuse. Stop heparin drip for now. Seen by vascular, hematoma evacuation ordered. serial Hgb. 07/21: Patient evaluated examined at bedside. Hemoglobin improved up to 8.1 today. Underwent hematoma evacuation yesterday. Planning for further intervention next week. 07/22: Examine and evaluated at bedside. Resting in bed no major complaints. Hemoglobin stable. Appreciate Cardiology resuming heparin. Further intervention next week. 07/23: Seen at bedside no motor complaints. Hemoglobin still stable. No major clinical changes for today. Intervention this coming week. 07/24: Seen bedside. Has good appetite no cough shortness of breath or chest pain. Left heel with more gangrenous changes left feet. Plan for n.p.o. after midnight 07/25: Seen bedside. N.p.o. for bilateral foot debridement today. K3. Glucose low 100s. Has a friend visiting today. No chest pain or shortness of breath. Pain controlled. 07/26: Changes in the off heparin drip to Xarelto. No significant anticoagulation for 3 months then can start progressive ambulation with physical therapy with postop shoe per vascular surgery recommendations. No shortness of breath or chest pain today just very weak. 07/27: Up to chair today, has more bilateral foot pain, now wearing post -op shoes. No SOB or cough. He is asking to get back into bed. Encouraged to continue trying to get on his feet. 07/28: In bed. Foot pain is improved from yesterday. No shortness of breath no cough. Still very weak even weak eating today. 07/29: Seen in bed. No foot pain today. No shortness of breath or cough. Still weak eating well. Not out of bed today. Glucose low 100s. 07/30: Seen in bed. Pain-free eating breakfast in bed. Still feeling weak has been up on his foot the last day. Glucose well controlled. Vitals/I&O Vitals/I&O: Vital Signs Date Time Temp Pulse Resp B/P (MAP) Pulse Ox O2 Delivery O2 Flow Rate FiO2 08/15/21 08:49 97 121/75 08/15/21 07:26 Room Air 08/15/21 07:00 97.1 12 94 97.1 I & O 08/14/21 08/14/21 08/15/21 15:00 23:00 07:00 Output Total 500 ml 350 ml Balance -500 ml -350 ml Physical Exam Physical Exam: lethargic and weak General: Alert, Oriented X3, Cooperative, No acute distress, Other (Resting) Heart: Regular rate Lungs: Clear Abdomen: Normal bowel sounds Extremities: Other (Severely black toes please see the pictures) Skin: Other (No further hematoma accumulation) Labs Labs: Laboratory Tests Test 08/14/21 11:18 08/14/21 16:57 08/14/21 20:33 08/15/21 08:03 Glucose (Fingerstick) 145 mg/dL (70-99) 150 mg/dL (70-99) 138 mg/dL (70-99) 99 mg/dL (70-99) Assessment and Plan Assessmemt and Plan Problems Medical Problems: (1) Dehydration Status: Acute (2) Mental status alteration Status: Acute (3) Pneumonia Status: Acute Assessment Resolving Covid-19 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 s/p bilateral pop/tibial thrombectomies with patch angioplasty s/p RLE hematoma evacuation Metabolic cephalopathy Probable Covid toes IVORY Lactic acidosis Dysphagia Malnutrition Heel erythema and necrosis Poor nail care Plan Continue close observation of the feet in hopes that the tissues may recover some Wound care of both calf incisions Offloading Trend labs DVT prophylaxis Full code Wound care of the feet We would like to get him to [facility] but he does not have insurance In my opinion he will need disability which will qualify him for Medicaid Vascular surgery is hoping to only have to do TMA in the future instead of BKA if we let his feet tissues try to recover for a few weeks (today they are consider of taking the janet out) Appreciate vascular input Comment Review of Relevant I have reviewed the following items amanda (where applicable) has been applied. Justifications for Admission Other Justification COVID-19 positive test (U07.1, COVID-19) with Acute Pneumonia (J12.89, Other viral pneumonia) (If respiratory failure or sepsis present, add as separate assessment) GERDA RASMUSSEN III DO Aug 15, 2021 10:16
[2021-08-15 11:00] VITALS: BP 119/79
--- NOTE | 2021-08-15 13:03 | NUR ---
SW following. Discussed with RN, pt from home with family. Therapy until more stable to return home. SW will continue to follow.
[2021-08-15 15:00] VITALS: BP 114/75
--- NOTE | 2021-08-15 17:46 | NUR ---
Pt's dinner FSBS 130, result accidentally rejected on glucometer by HOME HEALTH CLINICAL SUPERVISOR, therefore no result in [facility]. FSBS verified on glucometer by this RN, SS insulin nonadministered based on result.
[2021-08-15] MEDS: RIVAROXABAN 10 MG TABLET. PO SCH (17:57)
[2021-08-15 19:00] VITALS: BP 109/71
[2021-08-15] MEDS: ATORVASTATIN CALCIUM 20 MG TABLET PO SCH (21:43)
[2021-08-15] MEDS: oxyCODONE/APAP 5/325 1 TAB TABLET PO PRN (21:44)
[2021-08-15 23:00] VITALS: BP 105/63
[2021-08-16 03:00] VITALS: BP 108/74
[2021-08-16 07:00] VITALS: BP 113/76
[2021-08-16] MEDS: INSULIN LISPRO 300 UNITS/3 ML VIAL. SQ SCH ×3 (08:00→17:00)
--- NOTE | 2021-08-16 08:22 | PDOC ---
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 s/p bilateral pop/tibial thrombectomies with patch angioplasty s/p RLE hematoma evacuation Metabolic cephalopathy Probable Covid toes IVORY Lactic acidosis Dysphagia Malnutrition Heel erythema Poor nail care History of Present Illness History of Present Illness 08/16/2021 Patient seen and examined Discussed with RN Chart reviewed He is resting with no apparent distress 08/15/21 Patient seen and examined Jesica removed yesterday, incision site looks good IV came out, will leave out unless need arises Discussed w RN Chart reviewed 08/14/2021 Patient seen and examined Discussed with RN Chart reviewed I called the vascular surgery nurse practitioner to see if they could take the jesica out They said they would come later today to check on that (appreciate their help) 08/13/2019 Patient seen and examined He is up in the chair His nurse states he was able to walk to the bathroom twice His feet both still look necrotic Discussed with RN Chart reviewed 08/12/2021 Patient seen and examined Discussed with RN Chart reviewed Left foot still looks necrotic across the toes and the heel The right foot looks slightly better with slight healing of the heel but the toes are still quite necrotic 08/11/2021 Patient seen and examined Discussed with RN Chart reviewed Discussed with case management He took 8 steps yesterday 08/10/2021 Patient seen and examined exam discussed with case management Discussed with RN Chart reviewed No change clinically still wearing lower extremity protectors the toes are necrotic as are the heels 2: Seen sitting in chair today. He is wearing his postoperative shoes feels he is minimally stronger. Short of breath on exertion. 08/08: Seen and examined bedside. He is awaiting therapy evaluation today. Foot pain is well controlled. No worsening erythema or fevers but does have some drainage on the lateral left heel wound. No shortness of breath or chest pain. 08/04/2021 Patient seen and examined He is resting with no apparent distress Discussed with case management Chart reviewed Vascular surgery saw him again yesterday and is hoping to only have to do TMA in the future instead of BKA if we let his feett tissues try to recover for a few weeks Appreciate vascular input. 08/03/2021 Patient seen and examined Laying comfortably in bed with flat affect Bilateral heel protectors present; Dry gangrene present on bilateral toes and heels; Discussed with the wound care nurse Discussed with patient the need for vascular surgery input regarding foot surgery and potential bilateral BKA Chart reviewed Discussed with RN 08/02/2021 Patient seen and examined Discussed with RN Chart reviewed He is resting with no apparent distress 08/01/2021 Patient seen and examined He seems depressed and very weak He has heel protectors on both the toes that are exposed are extremely gangrenous and black and demarcated Discussed with the wound care nurse He explains that vascular surgery is awaiting the complete demarcation to finish up and then they will consider surgery at that time Chart reviewed Discussed with RN 07/31/2021 Patient seen and examined Discussed plan Chart reviewed Still feeling weak Mr Lambert is a 60-year-old male that presented 06/29/2021 via [facility] with decreased level of consciousness. Most of the history was obtained via EMS and patient's friend Reese [phone], who states that patient has been sick since about June 22 per Reese, he states that they both had cough cold headache sinus type pain. Per Reese's report patient is okay during the day and very alert and orientated and at night he has a decreased alertness. Patient is unable to help with exam when asked questions he does deny any past medical history, surgeries, or any other health conditions. Reese who is his roommate collaborates any information gotten from the patient. Accu-Chek per EMS was 250, room air sat in the room was 88 to 90%. 07/07: not much improved, about the same. cont current. PULM following. we have no clinimix, cont D5 fluid, 07/08: more alert, can try ST again, if able to sit up, still very weak 07/09: much more alert, bedside swallow of water ok, sits upright, much stronger, will try clears if able, ST to follow. toes are worsening, now black, hannah consult podiatry to follow, 07/10: More alert. Working with speech and swallowing today. Off O2. Less confused. Bilateral toe ulcers assessed by podiatry today. 07/11: More alert, eating. Arterial Doppler was left popliteal and severe distal disease bilaterally. Still has a little bit of a cough. Less confused today. 07/12: Eating reasonably well. Tentative plans for angiogram for consideration of limb salvage bilateral feet tomorrow. Discussed with cardiology. He will need significant follow-up care likely eventual amputations. 07/13: N.p.o. for angiogram today with bilateral SFA occlusive disease and left popliteal disease with left posterior tibial artery with some flow otherwise occlusive disease per cardiology. Discussed vascular surgery consultation for consideration of definitive revascularization with likely bilateral transmetatarsal amputations. Still with a little bit of a cough. Shortness of breath 07/14: Seen bedside. Having some pain in his bilateral extremities. Shortness of breath improved still with little bit of cough. Eating again. Amenable to revascularization and likely surgical debridement next week. Increasing thromboprophylaxis 07/15: Seen bedside. Not hypoxic. Cough is improving. He feels he is mental status is improved but he is definitely still mentating slowly. Complains of foot pain. He is contemplating surgical options but is okay with what ever the surgeons to choose for his likely lower extremity bypass tentatively planned for 07/17/202107/16: Bilateral foot pain still with cough but improving. Still is contemplating surgical options. 07/17: Patient off floor for surgery today. Chart evaluated. s/p bilateral pop /tibial thrombectomies with patch angioplasty. s/p RLE hematoma evacuation 07/18: Patient did and examined at bedside. He is postop day 1 from bilateral thrombectomies yesterday. Looks like he may need more surgery prior to discharge. Continue heparin drip. Suspect leukocytosis today secondary to surgery. Continue current. 07/19: Patient evaluated examined at bedside. He was working with physical therapy when seen. Continuing heparin drip. Recheck CBC today. Cardiology following vascular following. Will likely need further surgery prior to discharge. 07/20: Seen at bedside. Having RLE pain and had Hgb drop overnight. Will t ransfuse. Stop heparin drip for now. Seen by vascular, hematoma evacuation ordered. serial Hgb. 07/21: Patient evaluated examined at bedside. Hemoglobin improved up to 8.1 today. Underwent hematoma evacuation yesterday. Planning for further intervention next week. 07/22: Examine and evaluated at bedside. Resting in bed no major complaints. Hemoglobin stable. Appreciate Cardiology resuming heparin. Further intervention next week. 07/23: Seen at bedside no motor complaints. Hemoglobin still stable. No major clinical changes for today. Intervention this coming week. 07/24: Seen bedside. Has good appetite no cough shortness of breath or chest pain. Left heel with more gangrenous changes left feet. Plan for n.p.o. after midnight 07/25: Seen bedside. N.p.o. for bilateral foot debridement today. K3. Glucose low 100s. Has a friend visiting today. No chest pain or shortness of breath. Pain controlled. 2: Changes in the off heparin drip to Xarelto. No significant anticoagulation for 3 months then can start progressive ambulation with physical therapy with postop shoe per vascular surgery recommendations. No shortness of breath or chest pain today just very weak. 07/27: Up to chair today, has more bilateral foot pain, now wearing post -op shoes. No SOB or cough. He is asking to get back into bed. Encouraged to continue trying to get on his feet. 07/28: In bed. Foot pain is improved from yesterday. No shortness of breath no cough. Still very weak even weak eating today. 07/29: Seen in bed. No foot pain today. No shortness of breath or cough. Still weak eating well. Not out of bed today. Glucose low 100s. 07/30: Seen in bed. Pain-free eating breakfast in bed. Still feeling weak has been up on his foot the last day. Glucose well controlled. Vitals/I&O Vitals/I&O: Vital Signs Date Time Temp Pulse Resp B/P (MAP) Pulse Ox O2 Delivery O2 Flow Rate FiO2 08/16/21 07:00 98.3 92 12 113/76 (88) 95 Room Air 98.3 I & O 08/15/21 08/15/21 08/16/21 15:00 23:00 07:00 Intake Total 120 ml Output Total 150 ml Balance -150 ml 120 ml Physical Exam Physical Exam: lethargic and weak General: No acute distress, Other (Resting) Heart: Regular rate Lungs: Clear Abdomen: Normal bowel sounds Extremities: Other (Severely black toes please see the pictures) Skin: Other (No further hematoma accumulation) Labs Labs: Laboratory Tests Test 08/15/21 12:36 08/15/21 20:36 08/16/21 08:05 Glucose (Fingerstick) 143 mg/dL (70-99) 103 mg/dL (70-99) 111 mg/dL (70-99) Assessment and Plan Assessmemt and Plan Problems Medical Problems: (1) Dehydration Status: Acute (2) Mental status alteration Status: Acute (3) Pneumonia Status: Acute Resolving Covid-19 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 s/p bilateral pop/tibial thrombectomies with patch angioplasty s/p RLE hematoma evacuation Metabolic cephalopathy Probable Covid toes IVORY Lactic acidosis Dysphagia Malnutrition Heel erythema and necrosis Poor nail care Plan Continue close observation of the feet in hopes that the tissues may recover some Wound care of both calf incisions Offloading Trend labs DVT prophylaxis Full code Wound care of the feet We would like to get him to penitentiary but he does not have insurance In my opinion he will need disability which will qualify him for Medicaid Vascular surgery is hoping to only have to do TMA in the future instead of BKA if we let his feet tissues try to recover for a few weeks (today they are consider of taking the jesica out) Appreciate vascular input Comment Review of Relevant I have reviewed the following items amanda (where applicable) has been applied. Justifications for Admission Other Justification COVID-19 positive test (U07.1, COVID-19) with Acute Pneumonia (J12.89, Other viral pneumonia) (If respiratory failure or sepsis present, add as separate assessment) GERDA RASMUSSEN III DO Aug 16, 2021 08:22
[2021-08-16] MEDS: ASCORBIC ACID 500 MG TABLET PO SCH (08:41)
[2021-08-16] MEDS: THIAMINE 100 MG TABLET. PO SCH (08:41)
[2021-08-16] MEDS: ZINC SULFATE 220 MG CAPSULE. PO SCH (08:41)
[2021-08-16] MEDS: ASPIRIN CHEWABLE 81 MG TABLET. PO SCH (08:41)
[2021-08-16] MEDS: PANTOPRAZOLE 40 MG TABLET.DR. PO SCH (08:41)
[2021-08-16] MEDS: METOPROLOL TART IMMED RELEASE 25 MG TABLET. PO SCH ×2 (08:42→20:37)
[2021-08-16] MEDS: NYSTATIN TOPICAL POWDER 15GM BOTTLE. TP SCH ×2 (08:44→20:38)
[2021-08-16 11:00] VITALS: BP 111/80
[2021-08-16 15:00] VITALS: BP 110/74
[2021-08-16] MEDS: RIVAROXABAN 10 MG TABLET. PO SCH (17:15)
[2021-08-16 19:00] VITALS: BP 96/63
[2021-08-16] MEDS: ATORVASTATIN CALCIUM 20 MG TABLET PO SCH (20:36)
[2021-08-16] MEDS: oxyCODONE/APAP 5/325 1 TAB TABLET PO PRN (20:45)
[2021-08-16 23:00] VITALS: BP 109/72
[2021-08-17 03:00] VITALS: BP 112/77
[2021-08-17 07:00] VITALS: BP 114/71
[2021-08-17] MEDS: INSULIN LISPRO 300 UNITS/3 ML VIAL. SQ SCH ×3 (08:00→17:00)
[2021-08-17] MEDS: ZINC SULFATE 220 MG CAPSULE. PO SCH (08:03)
[2021-08-17] MEDS: ASPIRIN CHEWABLE 81 MG TABLET. PO SCH (08:03)
[2021-08-17] MEDS: THIAMINE 100 MG TABLET. PO SCH (08:03)
[2021-08-17] MEDS: METOPROLOL TART IMMED RELEASE 25 MG TABLET. PO SCH ×2 (08:04→21:13)
[2021-08-17] MEDS: PANTOPRAZOLE 40 MG TABLET.DR. PO SCH (08:04)
[2021-08-17] MEDS: ASCORBIC ACID 500 MG TABLET PO SCH (08:04)
[2021-08-17] MEDS: NYSTATIN TOPICAL POWDER 15GM BOTTLE. TP SCH ×2 (08:09→21:00)
[2021-08-17 11:00] VITALS: BP 109/80
--- NOTE | 2021-08-17 13:21 | PDOC ---
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 s/p bilateral pop/tibial thrombectomies with patch angioplasty s/p RLE hematoma evacuation Metabolic cephalopathy Probable Covid toes IVORY Lactic acidosis Dysphagia Malnutrition Heel erythema Poor nail care History of Present Illness History of Present Illness 08/17 Evaluated examined at bedside. Resting in bed did not appear in any distress. Continue therapy for modalities 08/16/2021 Patient seen and examined Discussed with RN Chart reviewed He is resting with no apparent distress 08/15/21 Patient seen and examined Jesica removed yesterday, incision site looks good IV came out, will leave out unless need arises Discussed w RN Chart reviewed 08/14/2021 Patient seen and examined Discussed with RN Chart reviewed I called the vascular surgery nurse practitioner to see if they could take the jesica out They said they would come later today to check on that (appreciate their help) 08/13/2019 Patient seen and examined He is up in the chair His nurse states he was able to walk to the bathroom twice His feet both still look necrotic Discussed with RN Chart reviewed 08/12/2021 Patient seen and examined Discussed with RN Chart reviewed Left foot still looks necrotic across the toes and the heel The right foot looks slightly better with slight healing of the heel but the toes are still quite necrotic 08/11/2021 Patient seen and examined Discussed with RN Chart reviewed Discussed with case management He took 8 steps yesterday 08/10/2021 Patient seen and examined exam discussed with case management Discussed with RN Chart reviewed No change clinically still wearing lower extremity protectors the toes are necrotic as are the heels 08/09: Seen sitting in chair today. He is wearing his postoperative shoes feels he is minimally stronger. Short of breath on exertion. 08/08: Seen and examined bedside. He is awaiting therapy evaluation today. Foot pain is well controlled. No worsening erythema or fevers but does have some drainage on the lateral left heel wound. No shortness of breath or chest pain. 08/04/2021 Patient seen and examined He is resting with no apparent distress Discussed with case management Chart reviewed Vascular surgery saw him again yesterday and is hoping to only have to do TMA in the future instead of BKA if we let his feett tissues try to recover for a few weeks Appreciate vascular input. 08/03/2021 Patient seen and examined Laying comfortably in bed with flat affect Bilateral heel protectors present; Dry gangrene present on bilateral toes and heels; Discussed with the wound care nurse Discussed with patient the need for vascular surgery input regarding foot surgery and potential bilateral BKA Chart reviewed Discussed with RN 08/02/2021 Patient seen and examined Discussed with RN Chart reviewed He is resting with no apparent distress 08/01/2021 Patient seen and examined He seems depressed and very weak He has heel protectors on both the toes that are exposed are extremely gangrenous and black and demarcated Discussed with the wound care nurse He explains that vascular surgery is awaiting the complete demarcation to finish up and then they will consider surgery at that time Chart reviewed Discussed with RN 07/31/2021 Patient seen and examined Discussed plan Chart reviewed Still feeling weak Mr aLmbert is a 60-year-old male that presented 06/29/2021 via [facility] with decreased level of consciousness. Most of the history was obtained via EMS and patient's friend Reese [phone], who states that patient has been sick since about June 22 per Reese, he states that they both had cough cold headache sinus type pain. Per Reese's report patient is okay during the day and very alert and orientated and at night he has a decreased alertness. Patient is unable to help with exam when asked questions he does deny any past medical history, surgeries, or any other health conditions. Reese who is his roommate collaborates any information gotten from the patient. Accu-Chek per EMS was 250, room air sat in the room was 88 to 90%. 07/07: not much improved, about the same. cont current. PULM following. we have no clinimix, cont D5 fluid, 07/08: more alert, can try ST again, if able to sit up, still very weak 07/09: much more alert, bedside swallow of water ok, sits upright, much stronger, will try clears if able, ST to follow. toes are worsening, now black, hannah consult podiatry to follow, 07/10: More alert. Working with speech and swallowing today. Off O2. Less confused. Bilateral toe ulcers assessed by podiatry today. 07/11: More alert, eating. Arterial Doppler was left popliteal and severe distal disease bilaterally. Still has a little bit of a cough. Less confused today. 07/12: Eating reasonably well. Tentative plans for angiogram for consideration of limb salvage bilateral feet tomorrow. Discussed with cardiology. He will need significant follow-up care likely eventual amputations. 07/13: N.p.o. for angiogram today with bilateral SFA occlusive disease and left popliteal disease with left posterior tibial artery with some flow otherwise occlusive disease per cardiology. Discussed vascular surgery consultation for consideration of definitive revascularization with likely bilateral transmetatarsal amputations. Still with a little bit of a cough. Shortness of breath 07/14: Seen bedside. Having some pain in his bilateral extremities. Shortness of breath improved still with little bit of cough. Eating again. Amenable to revascularization and likely surgical debridement next week. Increasing thromboprophylaxis 07/15: Seen bedside. Not hypoxic. Cough is improving. He feels he is mental status is improved but he is definitely still mentating slowly. Complains of foot pain. He is contemplating surgical options but is okay with what ever the surgeons to choose for his likely lower extremity bypass tentatively planned for 07/17/202107/16: Bilateral foot pain still with cough but improving. Still is contemplating surgical options. 07/17: Patient off floor for surgery today. Chart evaluated. s/p bilateral pop/tibial thrombectomies with patch angioplasty. s/p RLE hematoma evacuation 07/18: Patient did and examined at bedside. He is postop day 1 from bilateral thrombectomies yesterday. Looks like he may need more surgery prior to discharge. Continue heparin drip. Suspect leukocytosis today secondary to surgery. Continue current. 07/19: Patient evaluated examined at bedside. He was working with physical therapy when seen. Continuing heparin drip. Recheck CBC today. Cardiology following vascular following. Will likely need further surgery prior to discharge. 07/20: Seen at bedside. Having RLE pain and had Hgb drop overnight. Will transfuse. Stop heparin drip for now. Seen by vascular, hematoma evacuation ordered. serial Hgb. 07/21: Patient evaluated examined at bedside. Hemoglobin improved up to 8.1 today. Underwent hematoma evacuation yesterday. Planning for further intervention next week. 07/22: Examine and evaluated at bedside. Resting in bed no major complaints. Hemoglobin stable. Appreciate Cardiology resuming heparin. Further intervention next week. 07/23: Seen at bedside no motor complaints. Hemoglobin still stable. No major c linical changes for today. Intervention this coming week. 07/24: Seen bedside. Has good appetite no cough shortness of breath or chest pain. Left heel with more gangrenous changes left feet. Plan for n.p.o. after midnight 07/25: Seen bedside. N.p.o. for bilateral foot debridement today. K3. Glucose low 100s. Has a friend visiting today. No chest pain or shortness of breath. Pain controlled. 2: Changes in the off heparin drip to Xarelto. No significant anticoagulation for 3 months then can start progressive ambulation with physical therapy with postop shoe per vascular surgery recommendations. No shortness of breath or patrice st pain today just very weak. 2: Up to chair today, has more bilateral foot pain, now wearing post -op shoes. No SOB or cough. He is asking to get back into bed. Encouraged to continue trying to get on his feet. 07/28: In bed. Foot pain is improved from yesterday. No shortness of breath no cough. Still very weak even weak eating today. 07/29: Seen in bed. No foot pain today. No shortness of breath or cough. Still weak eating well. Not out of bed today. Glucose low 100s. 07/30: Seen in bed. Pain-free eating breakfast in bed. Still feeling weak has been up on his foot the last day. Glucose well controlled. Vitals/I&O Vitals/I&O: Vital Signs Date Time Temp Pulse Resp B/P (MAP) Pulse Ox O2 Delivery O2 Flow Rate FiO2 08/17/21 11:00 98.7 88 18 109/80 (90) 96 98.7 08/17/21 08:00 Room Air 96.0 I & O 08/16/21 08/16/21 08/17/21 15:00 23:00 07:00 Output Total 0 ml Balance 0 ml Physical Exam Physical Exam: lethargic and weak General: No acute distress, Other (Resting) Heart: Regular rate Lungs: Clear Abdomen: Normal bowel sounds Extremities: Other (Severely black toes please see the pictures) Skin: Other (No further hematoma accumulation) Labs Labs: Laboratory Tests Test 08/16/21 17:01 08/16/21 21:01 08/17/21 07:43 08/17/21 12:18 Glucose (Fingerstick) 112 mg/dL (70-99) 135 mg/dL (70-99) 112 mg/dL (70-99) 117 mg/dL (70-99) Assessment and Plan Assessmemt and Plan Problems Medical Problems: (1) Dehydration Status: Acute (2) Mental status alteration Status: Acute (3) Pneumonia Status: Acute Comment Review of Relevant I have reviewed the following items amanda (where applicable) has been applied. Justifications for Admission Other Justification COVID-19 positive test (U07.1, COVID-19) with Acute Pneumonia (J12.89, Other viral pneumonia) (If respiratory failure or sepsis present, add as separate assessment) SIMONE COOPER MD Aug 17, 2021 13:21
--- NOTE | 2021-08-17 14:03 | NUR ---
SW following. Discussed with RN, SW spoke with Kiya at [facility] to give heads up of possible [facility] referral early next week. See how pt does over the weekend with therapy. SW discussed with therapy. SW will continue to follow.
[2021-08-17 15:00] VITALS: BP 107/67
--- NOTE | 2021-08-17 16:13 | NUR ---
Wound Care Wound Type/Assessment: Pt seen for wound care follow up for multiple wounds, see wound assessments. Patient assisted back to bed with help using walker per his request. Pt's toes on bilateral feet are black and necrotic with some purple discoloration in the periwound there is more drainage noted today in between the toes, bilateral heels with necrotic/eschar covering, no drainage noted on the heels. Patient does say he has some sensation and that it "tickled" a little during wound assessment. Pt's bilateral buttocks has now resolved as well as the groins. Continue with calazime and Nystatin for prevention. Treatment Recommendations/Plan: Continue painting toes and heels with betadine and weave Aquacel AG strips between toes for drainage, Heel medix or rooke boots to BLE while in bed at all times or post op shoes while up to chair or with PT. calazime to buttocks for prevention as well as Nystatin groins for prevention. Calazime and dressings to BLE applied and patient tolerated well. Education provided: to pt re: Patient educated on wound care and dressing changes and PU prevention. Offloading surface/device: Patient requesting heel medix instead of the Rooke boots at this time. Heel medix applied. Recommended Referrals/Tests: vascular and wound care following; new consult for Dr. Viera Discharge Recommendations for dressings: Dressing change instructions left in room. No other wounds noted. Bed lowered and call light in reach. Wound care will follow up on 08/24/21.
[2021-08-17] MEDS: RIVAROXABAN 10 MG TABLET. PO SCH (17:05)
[2021-08-17 19:00] VITALS: BP 109/63
[2021-08-17] MEDS: ATORVASTATIN CALCIUM 20 MG TABLET PO SCH (21:13)
[2021-08-17] MEDS: oxyCODONE/APAP 5/325 1 TAB TABLET PO PRN (21:13)
[2021-08-17 22:45] VITALS: BP 122/70
[2021-08-18 02:45] VITALS: BP 108/66
[2021-08-18 07:00] VITALS: BP 112/73
[2021-08-18] MEDS: INSULIN LISPRO 300 UNITS/3 ML VIAL. SQ SCH ×3 (07:33→17:00)
[2021-08-18] MEDS: ASCORBIC ACID 500 MG TABLET PO SCH (07:58)
[2021-08-18] MEDS: THIAMINE 100 MG TABLET. PO SCH (07:58)
[2021-08-18] MEDS: ZINC SULFATE 220 MG CAPSULE. PO SCH (07:58)
[2021-08-18] MEDS: ASPIRIN CHEWABLE 81 MG TABLET. PO SCH (07:59)
[2021-08-18] MEDS: NYSTATIN TOPICAL POWDER 15GM BOTTLE. TP SCH ×2 (07:59→20:41)
[2021-08-18] MEDS: PANTOPRAZOLE 40 MG TABLET.DR. PO SCH (07:59)
[2021-08-18] MEDS: METOPROLOL TART IMMED RELEASE 25 MG TABLET. PO SCH ×2 (07:59→20:41)
[2021-08-18 11:00] VITALS: BP 120/80
--- NOTE | 2021-08-18 11:41 | NUR ---
SW following. Discussed with RN, screen for [facility] on Saturday (08/21/21). SW will continue to follow.
--- NOTE | 2021-08-18 12:43 | PDOC ---
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 s/p bilateral pop/tibial thrombectomies with patch angioplasty s/p RLE hematoma evacuation Metabolic cephalopathy Probable Covid toes IVORY Lactic acidosis Dysphagia Malnutrition Heel erythema Poor nail care History of Present Illness History of Present Illness 08/18 Evaluated examined at bedside. No major complaints. No distress. Screen for rehab on Saturday. 08/17 Evaluated examined at bedside. Resting in bed did not appear in any distress. Continue therapy for modalities 08/16/2021 Patient seen and examined Discussed with RN Chart reviewed He is resting with no apparent distress 08/15/21 Patient seen and examined Irving removed yesterday, incision site looks good IV came out, will leave out unless need arises Discussed w RN Chart reviewed 08/14/2021 Patient seen and examined Discussed with RN Chart reviewed I called the vascular surgery nurse practitioner to see if they could take the janet out They said they would come later today to check on that (appreciate their help) 08/13/2019 Patient seen and examined He is up in the chair His nurse states he was able to walk to the bathroom twice His feet both still look necrotic Discussed with RN Chart reviewed 08/12/2021 Patient seen and examined Discussed with RN Chart reviewed Left foot still looks necrotic across the toes and the heel The right foot looks slightly better with slight healing of the heel but the toes are still quite necrotic 08/11/2021 Patient seen and examined Discussed with RN Chart reviewed Discussed with case management He took 8 steps yesterday 08/10/2021 Patient seen and examined exam discussed with case management Discussed with RN Chart reviewed No change clinically still wearing lower extremity protectors the toes are necrotic as are the heels 2: Seen sitting in chair today. He is wearing his postoperative shoes feels he is minimally stronger. Short of breath on exertion. 08/08: Seen and examined bedside. He is awaiting therapy evaluation today. Foot pain is well controlled. No worsening erythema or fevers but does have some drainage on the lateral left heel wound. No shortness of breath or chest pain. 08/04/2021 Patient seen and examined He is resting with no apparent distress Discussed with case management Chart reviewed Vascular surgery saw him again yesterday and is hoping to only have to do TMA in the future instead of BKA if we let his feett tissues try to recover for a few weeks Appreciate vascular input. 08/03/2021 Patient seen and examined Laying comfortably in bed with flat affect Bilateral heel protectors present; Dry gangrene present on bilateral toes and heels; Discussed with the wound care nurse Discussed with patient the need for vascular surgery input regarding foot surgery and potential bilateral BKA Chart reviewed Discussed with RN 08/02/2021 Patient seen and examined Discussed with RN Chart reviewed He is resting with no apparent distress 08/01/2021 Patient seen and examined He seems depressed and very weak He has heel protectors on both the toes that are exposed are extremely gangrenous and black and demarcated Discussed with the wound care nurse He explains that vascular surgery is awaiting the complete demarcation to finish up and then they will consider surgery at that time Chart reviewed Discussed with RN 07/31/2021 Patient seen and examined Discussed plan Chart reviewed Still feeling weak Mr Lambert is a 60-year-old male that presented 06/29/2021 via [facility] with decreased level of consciousness. Most of the history was obtained via EMS and patient's friend Reese [phone], who states that patient has been sick since about June 22 per Reese, he states that they both had cough cold headache sinus type pain. Per Reese's report patient is okay during the day and very alert and orientated and at night he has a decreased alertness. Patient is unable to help with exam when asked questions he does deny any past medical history, surgeries, or any other health conditions. Reese who is his roommate collaborates any information gotten from the patient. Accu-Chek per EMS was 250, room air sat in the room was 88 to 90%. 07/07: not much improved, about the same. cont current. PULM following. we have no clinimix, cont D5 fluid, 07/08: more alert, can try ST again, if able to sit up, still very weak 07/09: much more alert, bedside swallow of water ok, sits upright, much stronger, will try clears if able, ST to follow. toes are worsening, now black, hannah consult podiatry to follow, 07/10: More alert. Working with speech and swallowing today. Off O2. Less confused. Bilateral toe ulcers assessed by podiatry today. 07/11: More alert, eating. Arterial Doppler was left popliteal and severe distal disease bilaterally. Still has a little bit of a cough. Less confused today. 07/12: Eating reasonably well. Tentative plans for angiogram for consideration of limb salvage bilateral feet tomorrow. Discussed with cardiology. He will need significant follow-up care likely eventual amputations. 07/13: N.p.o. for angiogram today with bilateral SFA occlusive disease and left popliteal disease with left posterior tibial artery with some flow otherwise occ lusive disease per cardiology. Discussed vascular surgery consultation for consideration of definitive revascularization with likely bilateral transmetatarsal amputations. Still with a little bit of a cough. Shortness of breath 07/14: Seen bedside. Having some pain in his bilateral extremities. Shortness of breath improved still with little bit of cough. Eating again. Amenable to revascularization and likely surgical debridement next week. Increasing thromboprophylaxis 07/15: Seen bedside. Not hypoxic. Cough is improving. He feels he is mental status is improved but he is definitely still mentating slowly. Complains of foot pain. He is contemplating surgical options but is okay with what ever the surgeons to choose for his likely lower extremity bypass tentatively planned for 07/17/202107/16: Bilateral foot pain still with cough but improving. Still is contemplating surgical options. 07/17: Patient off floor for surgery today. Chart evaluated. s/p bilateral pop/tibial thrombectomies with patch angioplasty. s/p RLE hematoma evacuation 07/18: Patient did and examined at bedside. He is postop day 1 from bilateral thrombectomies yesterday. Looks like he may need more surgery prior to discharge. Continue heparin drip. Suspect leukocytosis today secondary to surgery. Continue current. 07/19: Patient evaluated examined at bedside. He was working with physical therapy when seen. Continuing heparin drip. Recheck CBC today. Cardiology following vascular following. Will likely need further surgery prior to discharge. 07/20: Seen at bedside. Having RLE pain and had Hgb drop overnight. Will transfuse. Stop heparin drip for now. Seen by vascular, hematoma evacuation ordered. serial Hgb. 07/21: Patient evaluated examined at bedside. Hemoglobin improved up to 8.1 today. Underwent hematoma evacuation yesterday. Planning for further intervention next week. 07/22: Examine and evaluated at bedside. Resting in bed no major complaints. Hemoglobin stable. Appreciate Cardiology resuming heparin. Further in tervention next week. 07/23: Seen at bedside no motor complaints. Hemoglobin still stable. No major clinical changes for today. Intervention this coming week. 07/24: Seen bedside. Has good appetite no cough shortness of breath or chest pain. Left heel with more gangrenous changes left feet. Plan for n.p.o. after midnight 07/25: Seen bedside. N.p.o. for bilateral foot debridement today. K3. Glucose low 100s. Has a friend visiting today. No chest pain or shortness of breath. Pain controlled. 07/26: Changes in the off heparin drip to Xarelto. No significant anticoagulation for 3 months then can start progressive ambulation with physical therapy with postop shoe per vascular surgery recommendations. No shortness of breath or chest pain today just very weak. 23: Up to chair today, has more bilateral foot pain, now wearing post -op shoes. No SOB or cough. He is asking to get back into bed. Encouraged to continue trying to get on his feet. 2: In bed. Foot pain is improved from yesterday. No shortness of breath no cough. Still very weak even weak eating today. 07/29: Seen in bed. No foot pain today. No shortness of breath or cough. Still weak eating well. Not out of bed today. Glucose low 100s. 2: Seen in bed. Pain-free eating breakfast in bed. Still feeling weak has been up on his foot the last day. Glucose well controlled. Vitals/I&O Vitals/I&O: Vital Signs Date Time Temp Pulse Resp B/P (MAP) Pulse Ox O2 Delivery O2 Flow Rate FiO2 08/18/21 11:00 97.8 99 18 120/80 (93) 96 Room Air 97.8 08/17/21 08:00 96.0 I & O 08/17/21 08/17/21 08/18/21 15:00 23:00 07:00 Output Total 200 ml Balance -200 ml Physical Exam Physical Exam: lethargic and weak General: No acute distress, Other (Resting) Heart: Regular rate Lungs: Clear Abdomen: Normal bowel sounds Extremities: Other (Severely black toes please see the pictures) Skin: Other (No further hematoma accumulation) Labs Labs: Laboratory Tests Test 08/17/21 16:50 08/17/21 18:46 08/18/21 07:26 08/18/21 11:25 Glucose (Fingerstick) 115 mg/dL (70-99) 148 mg/dL (70-99) 104 mg/dL (70-99) 143 mg/dL (70-99) Assessment and Plan Assessmemt and Plan Problems Medical Problems: (1) Dehydration Status: Acute (2) Mental status alteration Status: Acute (3) Pneumonia Status: Acute Comment Review of Relevant I have reviewed the following items amanda (where applicable) has been applied. Justifications for Admission Other Justification COVID-19 positive test (U07.1, COVID-19) with Acute Pneumonia (J12.89, Other viral pneumonia) (If respiratory failure or sepsis present, add as separate assessment) SIMONE COOPER MD Aug 18, 2021 12:43
[2021-08-18 15:00] VITALS: BP 109/76
[2021-08-18] MEDS: RIVAROXABAN 10 MG TABLET. PO SCH (17:01)
[2021-08-18] MEDS: oxyCODONE/APAP 5/325 1 TAB TABLET PO PRN ×2 (17:03→21:04)
[2021-08-18 19:00] VITALS: BP 126/82
[2021-08-18] MEDS: ATORVASTATIN CALCIUM 20 MG TABLET PO SCH (20:41)
[2021-08-18 23:00] VITALS: BP 107/74
[2021-08-19 03:12] VITALS: BP 115/81
[2021-08-19 07:00] VITALS: BP 125/73
[2021-08-19] MEDS: INSULIN LISPRO 300 UNITS/3 ML VIAL. SQ SCH ×3 (08:00→17:00)
[2021-08-19] MEDS: ASCORBIC ACID 500 MG TABLET PO SCH (08:41)
[2021-08-19] MEDS: ZINC SULFATE 220 MG CAPSULE. PO SCH (08:41)
[2021-08-19] MEDS: THIAMINE 100 MG TABLET. PO SCH (08:41)
[2021-08-19] MEDS: ASPIRIN CHEWABLE 81 MG TABLET. PO SCH (08:42)
[2021-08-19] MEDS: METOPROLOL TART IMMED RELEASE 25 MG TABLET. PO SCH ×2 (08:42→21:20)
[2021-08-19] MEDS: PANTOPRAZOLE 40 MG TABLET.DR. PO SCH (08:42)
[2021-08-19] MEDS: NYSTATIN TOPICAL POWDER 15GM BOTTLE. TP SCH ×2 (08:43→21:00)
[2021-08-19 11:00] VITALS: BP 122/64
--- NOTE | 2021-08-19 12:08 | PDOC ---
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 s/p bilateral pop/tibial thrombectomies with patch angioplasty s/p RLE hematoma evacuation Metabolic cephalopathy Probable Covid toes IVORY Lactic acidosis Dysphagia Malnutrition Heel erythema Poor nail care History of Present Illness History of Present Illness 08/19 Evaluated examined at bedside. Resting in bed did not appear in any distress. Continue therapy modalities 08/18 Evaluated examined at bedside. No major complaints. No distress. Screen for rehab on Saturday. 08/17 Evaluated examined at bedside. Resting in bed did not appear in any distress. Continue therapy for modalities 08/16/2021 Patient seen and examined Discussed with RN Chart reviewed He is resting with no apparent distress 08/15/21 Patient seen and examined Jesica removed yesterday, incision site looks good IV came out, will leave out unless need arises Discussed w RN Chart reviewed 08/14/2021 Patient seen and examined Discussed with RN Chart reviewed I called the vascular surgery nurse practitioner to see if they could take the jesica out They said they would come later today to check on that (appreciate their help) 08/13/2019 Patient seen and examined He is up in the chair His nurse states he was able to walk to the bathroom twice His feet both still look necrotic Discussed with RN Chart reviewed 08/12/2021 Patient seen and examined Discussed with RN Chart reviewed Left foot still looks necrotic across the toes and the heel The right foot looks slightly better with slight healing of the heel but the toes are still quite necrotic 08/11/2021 Patient seen and examined Discussed with RN Chart reviewed Discussed with case management He took 8 steps yesterday 08/10/2021 Patient seen and examined exam discussed with case management Discussed with RN Chart reviewed No change clinically still wearing lower extremity protectors the toes are ne crotic as are the heels 08/09: Seen sitting in chair today. He is wearing his postoperative shoes feels he is minimally stronger. Short of breath on exertion. 08/08: Seen and examined bedside. He is awaiting therapy evaluation today. Foot pain is well controlled. No worsening erythema or fevers but does have some drainage on the lateral left heel wound. No shortness of breath or chest pain. 08/04/2021 Patient seen and examined He is resting with no apparent distress Discussed with case management Chart reviewed Vascular surgery saw him again yesterday and is hoping to only have to do TMA in the future instead of BKA if we let his feett tissues try to recover for a few weeks Appreciate vascular input. 08/03/2021 Patient seen and examined Laying comfortably in bed with flat affect Bilateral heel protectors present; Dry gangrene present on bilateral toes and heels; Discussed with the wound care nurse Discussed with patient the need for vascular surgery input regarding foot surgery and potential bilateral BKA Chart reviewed Discussed with RN 08/02/2021 Patient seen and examined Discussed with RN Chart reviewed He is resting with no apparent distress 08/01/2021 Patient seen and examined He seems depressed and very weak He has heel protectors on both the toes that are exposed are extremely gangrenous and black and demarcated Discussed with the wound care nurse He explains that vascular surgery is awaiting the complete demarcation to finish up and then they will consider surgery at that time Chart reviewed Discussed with RN 07/31/2021 Patient seen and examined Discussed plan Chart reviewed Still feeling weak Mr Lambert is a 60-year-old male that presented 06/29/2021 via [facility] with decreased level of consciousness. Most of the history was obtained via EMS and patient's friend Reese [phone], who states that patient has been sick since about June 22 per Reese, he states that they both had cough cold headache sinus type pain. Per Reese's report patient is okay during the day and very alert and orientated and at night he has a decreased alertness. Patient is unable to help with exam when asked questions he does deny any past medical history, surgeries, or any other health conditions. Reese who is his roommate collaborates any information gotten from the patient. Accu-Chek per EMS was 250, room air sat in the room was 88 to 90%. 07/07: not much improved, about the same. cont current. PULM following. we have no clinimix, cont D5 fluid, 07/08: more alert, can try ST again, if able to sit up, still very weak 07/09: much more alert, bedside swallow of water ok, sits upright, much stronger, will try clears if able, ST to follow. toes are worsening, now black, hannah consult podiatry to follow, 07/10: More alert. Working with speech and swallowing today. Off O2. Less confused. Bilateral toe ulcers assessed by podiatry today. 07/11: More alert, eating. Arterial Doppler was left popliteal and severe distal disease bilaterally. Still has a little bit of a cough. Less confused today. 07/12: Eating reasonably well. Tentative plans for angiogram for consideration of limb salvage bilateral feet tomorrow. Discussed with cardiology. He will need significant follow-up care likely eventual amputations. 07/13: N.p.o. for angiogram today with bilateral SFA occlusive disease and left popliteal disease with left posterior tibial artery with some flow otherwise occlusive disease per cardiology. Discussed vascular surgery consultation for consideration of definitive revascularization with likely bilateral transmetatarsal amputations. Still with a little bit of a cough. Shortness of breath 07/14: Seen bedside. Having some pain in his bilateral extremities. Shortness of breath improved still with little bit of cough. Eating again. Amenable to revascularization and likely surgical debridement next week. Increasing thromboprophylaxis 07/15: Seen bedside. Not hypoxic. Cough is improving. He feels he is mental status is improved but he is definitely still mentating slowly. Complains of foot pain. He is contemplating surgical options but is okay with what ever the surgeons to choose for his likely lower extremity bypass tentatively planned for 07/17/202107/16: Bilateral foot pain still with cough but improving. Still is contemplating surgical options. 07/17: Patient off floor for surgery today. Chart evaluated. s/p bilateral pop/tibial thrombectomies with patch angioplasty. s/p RLE hematoma evacuation 07/18: Patient did and examined at bedside. He is postop day 1 from bilateral thrombectomies yesterday. Looks like he may need more surgery prior to discharge. Continue heparin drip. Suspect leukocytosis today secondary to surgery. Continue current. 07/19: Patient evaluated examined at bedside. He was working with physical therapy when seen. Continuing heparin drip. Recheck CBC today. Cardiology following vascular following. Will likely need further surgery prior to discharge. 07/20: Seen at bedside. Having RLE pain and had Hgb drop overnight. Will transfuse. Stop heparin drip for now. Seen by vascular, hematoma evacuation ordered. serial Hgb. 07/21: Patient evaluated examined at bedside. Hemoglobin improved up to 8.1 toda y. Underwent hematoma evacuation yesterday. Planning for further intervention next week. 07/22: Examine and evaluated at bedside. Resting in bed no major complaints. Hemoglobin stable. Appreciate Cardiology resuming heparin. Further intervention next week. 07/23: Seen at bedside no motor complaints. Hemoglobin still stable. No major clinical changes for today. Intervention this coming week. 07/24: Seen bedside. Has good appetite no cough shortness of breath or chest pain. Left heel with more gangrenous changes left feet. Plan for n.p.o. after midnight 07/25: Seen bedside. N.p.o. for bilateral foot debridement today. K3. Glucose low 100s. Has a friend visiting today. No chest pain or shortness of breath. Pain controlled. 07/26: Changes in the off heparin drip to Xarelto. No significant anticoagulation for 3 months then can start progressive ambulation with physical therapy with postop shoe per vascular surgery recommendations. No shortness of breath or chest pain today just very weak. 2/3: Up to chair today, has more bilateral foot pain, now wearing post -op shoes. No SOB or cough. He is asking to get back into bed. Encouraged to continue trying to get on his feet. 2: In bed. Foot pain is improved from yesterday. No shortness of breath no cough. Still very weak even weak eating today. 07/29: Seen in bed. No foot pain today. No shortness of breath or cough. Still weak eating well. Not out of bed today. Glucose low 100s. 07/30: Seen in bed. Pain-free eating breakfast in bed. Still feeling weak has been up on his foot the last day. Glucose well controlled. Vitals/I&O Vitals/I&O: Vital Signs Date Time Temp Pulse Resp B/P (MAP) Pulse Ox O2 Delivery O2 Flow Rate FiO2 08/19/21 11:00 98.1 67 18 122/64 (83) 97 Room Air 98.1 08/18/21 17:44 96.0 I & O 08/18/21 08/18/21 08/19/21 15:00 23:00 07:00 Intake Total 546 ml 100 ml 400 ml Output Total 400 ml 300 ml Balance 146 ml 100 ml 100 ml Physical Exam Physical Exam: lethargic and weak General: No acute distress, Other (Resting) Heart: Regular rate Lungs: Clear Abdomen: Normal bowel sounds Extremities: Other (Severely black toes please see the pictures) Skin: Other (No further hematoma accumulation) Labs Labs: Laboratory Tests Test 08/18/21 17:09 08/19/21 07:22 08/19/21 12:00 Glucose (Fingerstick) 125 mg/dL (70-99) 103 mg/dL (70-99) 154 mg/dL (70-99) Assessment and Plan Assessmemt and Plan Problems Medical Problems: (1) Dehydration Status: Acute (2) Mental status alteration Status: Acute (3) Pneumonia Status: Acute Comment Review of Relevant I have reviewed the following items amanda (where applicable) has been applied. Justifications for Admission Other Justification COVID-19 positive test (U07.1, COVID-19) with Acute Pneumonia (J12.89, Other viral pneumonia) (If respiratory failure or sepsis present, add as separate assessment) SIMONE COOPER MD Aug 19, 2021 12:08
[2021-08-19 15:00] VITALS: BP 128/64
[2021-08-19] MEDS: oxyCODONE/APAP 5/325 1 TAB TABLET PO PRN ×2 (16:19→21:21)
[2021-08-19] MEDS: RIVAROXABAN 10 MG TABLET. PO SCH (17:08)
[2021-08-19 19:10] VITALS: BP 113/73
[2021-08-19] MEDS: ATORVASTATIN CALCIUM 20 MG TABLET PO SCH (21:21)
[2021-08-19 23:04] VITALS: BP 109/66
[2021-08-20 03:35] VITALS: BP 106/63
[2021-08-20 07:00] VITALS: BP 115/68
[2021-08-20] MEDS: INSULIN LISPRO 300 UNITS/3 ML VIAL. SQ SCH ×3 (08:00→17:00)
[2021-08-20] MEDS: ASPIRIN CHEWABLE 81 MG TABLET. PO SCH (09:08)
[2021-08-20] MEDS: THIAMINE 100 MG TABLET. PO SCH (09:08)
[2021-08-20] MEDS: PANTOPRAZOLE 40 MG TABLET.DR. PO SCH (09:09)
[2021-08-20] MEDS: ZINC SULFATE 220 MG CAPSULE. PO SCH (09:09)
[2021-08-20] MEDS: ASCORBIC ACID 500 MG TABLET PO SCH (09:11)
[2021-08-20] MEDS: METOPROLOL TART IMMED RELEASE 25 MG TABLET. PO SCH ×2 (09:11→20:51)
[2021-08-20] MEDS: NYSTATIN TOPICAL POWDER 15GM BOTTLE. TP SCH ×2 (09:11→20:51)
[2021-08-20] MEDS: oxyCODONE/APAP 5/325 1 TAB TABLET PO PRN ×2 (10:37→20:51)
[2021-08-20 11:00] VITALS: BP 112/76
--- NOTE | 2021-08-20 11:35 | PDOC ---
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 s/p bilateral pop/tibial thrombectomies with patch angioplasty s/p RLE hematoma evacuation Metabolic cephalopathy Probable Covid toes IVORY Lactic acidosis Dysphagia Malnutrition Heel erythema Poor nail care History of Present Illness History of Present Illness 08/20 Eval examined at bedside. No complaints, no distress. Rehab screen tomorrow. 08/19 Evaluated examined at bedside. Resting in bed did not appear in any distress. Continue therapy modalities 08/18 Evaluated examined at bedside. No major complaints. No distress. Screen for rehab on Saturday. 08/17 Evaluated examined at bedside. Resting in bed did not appear in any distress. Continue therapy for modalities 08/16/2021 Patient seen and examined Discussed with RN Chart reviewed He is resting with no apparent distress 08/15/21 Patient seen and examined [place] removed yesterday, incision site looks good IV came out, will leave out unless need arises Discussed w RN Chart reviewed 08/14/2021 Patient seen and examined Discussed with RN Chart reviewed I called the vascular surgery nurse practitioner to see if they could take the janet out They said they would come later today to check on that (appreciate their help) 08/13/2019 Patient seen and examined He is up in the chair His nurse states he was able to walk to the bathroom twice His feet both still look necrotic Discussed with RN Chart reviewed 08/12/2021 Patient seen and examined Discussed with RN Chart reviewed Left foot still looks necrotic across the toes and the heel The right foot looks slightly better with slight healing of the heel but the toe s are still quite necrotic 08/11/2021 Patient seen and examined Discussed with RN Chart reviewed Discussed with case management He took 8 steps yesterday 08/10/2021 Patient seen and examined exam discussed with case management Discussed with RN Chart reviewed No change clinically still wearing lower extremity protectors the toes are necrotic as are the heels 08/09: Seen sitting in chair today. He is wearing his postoperative shoes feels he is minimally stronger. Short of breath on exertion. 08/08: Seen and examined bedside. He is awaiting therapy evaluation today. Foot pain is well controlled. No worsening erythema or fevers but does have some drainage on the lateral left heel wound. No shortness of breath or chest pain. 08/04/2021 Patient seen and examined He is resting with no apparent distress Discussed with case management Chart reviewed Vascular surgery saw him again yesterday and is hoping to only have to do TMA in the future instead of BKA if we let his feett tissues try to recover for a few weeks Appreciate vascular input. 08/03/2021 Patient seen and examined Laying comfortably in bed with flat affect Bilateral heel protectors present; Dry gangrene present on bilateral toes and heels; Discussed with the wound care nurse Discussed with patient the need for vascular surgery input regarding foot surgery and potential bilateral BKA Chart reviewed Discussed with RN 08/02/2021 Patient seen and examined Discussed with RN Chart reviewed He is resting with no apparent distress 08/01/2021 Patient seen and examined He seems depressed and very weak He has heel protectors on both the toes that are exposed are extremely gangren ous and black and demarcated Discussed with the wound care nurse He explains that vascular surgery is awaiting the complete demarcation to finish up and then they will consider surgery at that time Chart reviewed Discussed with RN 07/31/2021 Patient seen and examined Discussed plan Chart reviewed Still feeling weak Mr Lambert is a 60-year-old male that presented 06/29/2021 via [facility] with decreased level of consciousness. Most of the history was obtained via EMS and patient's friend Reese [phone], who states that patient has been sick since about June 22 per Reese, he states that they both had cough cold headac he sinus type pain. Per Reese's report patient is okay during the day and very alert and orientated and at night he has a decreased alertness. Patient is unable to help with exam when asked questions he does deny any past medical history, surgeries, or any other health conditions. Reese who is his roommate collaborates any information gotten from the patient. Accu-Chek per EMS was 250, room air sat in the room was 88 to 90%. 07/07: not much improved, about the same. cont current. PULM following. we have no clinimix, cont D5 fluid, 07/08: more alert, can try ST again, if able to sit up, still very weak 07/09: much more alert, bedside swallow of water ok, sits upright, much stronger, will try clears if able, ST to follow. toes are worsening, now hannah leigh consult podiatry to follow, 07/10: More alert. Working with speech and swallowing today. Off O2. Less confused. Bilateral toe ulcers assessed by podiatry today. 07/11: More alert, eating. Arterial Doppler was left popliteal and severe distal disease bilaterally. Still has a little bit of a cough. Less confused today. 07/12: Eating reasonably well. Tentative plans for angiogram for consideration of limb salvage bilateral feet tomorrow. Discussed with cardiology. He will need significant follow-up care likely eventual amputations. 07/13: N.p.o. for angiogram today with bilateral SFA occlusive disease and left popliteal disease with left posterior tibial artery with some flow otherwise occlusive disease per cardiology. Discussed vascular surgery consultation for consideration of definitive revascularization with likely bilateral transmetatarsal amputations. Still with a little bit of a cough. Shortness of breath 07/14: Seen bedside. Having some pain in his bilateral extremities. Shortness of breath improved still with little bit of cough. Eating again. Amenable to revascularization and likely surgical debridement next week. Increasing thromboprophylaxis 07/15: Seen bedside. Not hypoxic. Cough is improving. He feels he is mental status is improved but he is definitely still mentating slowly. Complains of foot pain. He is contemplating surgical options but is okay with what ever the surgeons to choose for his likely lower extremity bypass tentatively planned for 07/17/202107/16: Bilateral foot pain still with cough but improving. Still is contemplating surgical options. 07/17: Patient off floor for surgery today. Chart evaluated. s/p bilateral pop/tibial thrombectomies with patch angioplasty. s/p RLE hematoma evacuation 07/18: Patient did and examined at bedside. He is postop day 1 from bilateral thrombectomies yesterday. Looks like he may need more surgery prior to discharge. Continue heparin drip. Suspect leukocytosis today secondary to surgery. Continue current. 07/19: Patient evaluated examined at bedside. He was working with physical therapy when seen. Continuing heparin drip. Recheck CBC today. Cardiology following vascular following. Will likely need further surgery prior to discharge. 07/20: Seen at bedside. Having RLE pain and had Hgb drop overnight. Will transfuse. Stop heparin drip for now. Seen by vascular, hematoma evacuation ordered. serial Hgb. 07/21: Patient evaluated examined at bedside. Hemoglobin improved up to 8.1 today. Underwent hematoma evacuation yesterday. Planning for further intervention next week. 07/22: Examine and evaluated at bedside. Resting in bed no major complaints. Hemoglobin stable. Appreciate Cardiology resuming heparin. Further intervention next week. 07/23: Seen at bedside no motor complaints. Hemoglobin still stable. No major clinical changes for today. Intervention this coming week. 07/24: Seen bedside. Has good appetite no cough shortness of breath or chest pain. Left heel with more gangrenous changes left feet. Plan for n.p.o. after midnight 07/25: Seen bedside. N.p.o. for bilateral foot debridement today. K3. Glucose low 100s. Has a friend visiting today. No chest pain or shortness of breath. Pain controlled. 2/: Changes in the off heparin drip to Xarelto. No significant anticoagulation for 3 months then can start progressive ambulation with physical therapy with postop shoe per vascular surgery recommendations. No shortness of breath or chest pain today just very weak. 2/3: Up to chair today, has more bilateral foot pain, now wearing post -op shoes. No SOB or cough. He is asking to get back into bed. Encouraged to continue trying to get on his feet. 2/4: In bed. Foot pain is improved from yesterday. No shortness of breath no cough. Still very weak even weak eating today. 2/5: Seen in bed. No foot pain today. No shortness of breath or cough. Still weak eating well. Not out of bed today. Glucose low 100s. 2/6: Seen in bed. Pain-free eating breakfast in bed. Still feeling weak has been up on his foot the last day. Glucose well controlled. Vitals/I&O Vitals/I&O: Vital Signs Date Time Temp Pulse Resp B/P (MAP) Pulse Ox O2 Delivery O2 Flow Rate FiO2 08/20/21 10:37 18 Room Air 08/20/21 09:11 96 115/68 08/20/21 07:00 98.7 95 98.7 I & O 08/19/21 08/19/21 08/20/21 15:00 23:00 07:00 Intake Total 60 ml 200 ml Balance 60 ml 200 ml Physical Exam Physical Exam: lethargic and weak General: No acute distress, Other (Resting) Heart: Regular rate Lungs: Clear Abdomen: Normal bowel sounds Extremities: Other (Severely black toes please see the pictures) Skin: Other (No further hematoma accumulation) Labs Labs: Laboratory Tests Test 08/19/21 12:00 08/19/21 16:39 08/19/21 20:26 08/20/21 07:29 Glucose (Fingerstick) 154 mg/dL (70-99) 136 mg/dL (70-99) 148 mg/dL (70-99) 103 mg/dL (70-99) Assessment and Plan Assessmemt and Plan Problems Medical Problems: (1) Dehydration Status: Acute (2) Mental status alteration Status: Acute (3) Pneumonia Status: Acute Comment Review of Relevant I have reviewed the following items amanda (where applicable) has been applied. Justifications for Admission Other Justification COVID-19 positive test (U07.1, COVID-19) with Acute Pneumonia (J12.89, Other viral pneumonia) (If respiratory failure or sepsis present, add as separate assessment) SIMONE COOPER MD Aug 20, 2021 11:35
[2021-08-20 15:00] VITALS: BP 105/63
[2021-08-20] MEDS: RIVAROXABAN 10 MG TABLET. PO SCH (16:56)
[2021-08-20 19:29] VITALS: BP 110/64
[2021-08-20] MEDS: ATORVASTATIN CALCIUM 20 MG TABLET PO SCH (20:51)
[2021-08-20 22:35] VITALS: BP 100/64
[2021-08-21 02:29] VITALS: BP 99/64
[2021-08-21 07:00] VITALS: BP 112/72
[2021-08-21] MEDS: INSULIN LISPRO 300 UNITS/3 ML VIAL. SQ SCH ×3 (08:00→17:00)
[2021-08-21] MEDS: NYSTATIN TOPICAL POWDER 15GM BOTTLE. TP SCH ×2 (09:00→20:53)
[2021-08-21] MEDS: METOPROLOL TART IMMED RELEASE 25 MG TABLET. PO SCH ×2 (09:14→20:52)
[2021-08-21] MEDS: ASCORBIC ACID 500 MG TABLET PO SCH (09:15)
[2021-08-21] MEDS: THIAMINE 100 MG TABLET. PO SCH (09:15)
[2021-08-21] MEDS: ZINC SULFATE 220 MG CAPSULE. PO SCH (09:15)
[2021-08-21] MEDS: PANTOPRAZOLE 40 MG TABLET.DR. PO SCH (09:15)
[2021-08-21] MEDS: ASPIRIN CHEWABLE 81 MG TABLET. PO SCH (09:15)
[2021-08-21 11:00] VITALS: BP 126/73
--- NOTE | 2021-08-21 11:58 | PDOC ---
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 s/p bilateral pop/tibial thrombectomies with patch angioplasty s/p RLE hematoma evacuation Metabolic cephalopathy Probable Covid toes IVORY Lactic acidosis Dysphagia Malnutrition Heel erythema Poor nail care History of Present Illness History of Present Illness 08/21 [place] examined at bedside. Clinically stable. Rehab screen. Continue current plan otherwise. 08/20 Eval examined at bedside. No complaints, no distress. Rehab screen tomorrow. 08/19 Evaluated examined at bedside. Resting in bed did not appear in any distress. Continue therapy modalities 08/18 Evaluated examined at bedside. No major complaints. No distress. Screen for rehab on Saturday. 08/17 Evaluated examined at bedside. Resting in bed did not appear in any distress. Continue therapy for modalities 08/16/2021 Patient seen and examined Discussed with RN Chart reviewed He is resting with no apparent distress 08/15/21 Patient seen and examined [place] removed yesterday, incision site looks good IV came out, will leave out unless need arises Discussed w RN Chart reviewed 08/14/2021 Patient seen and examined Discussed with RN Chart reviewed I called the vascular surgery nurse practitioner to see if they could take the jesica out They said they would come later today to check on that (appreciate their help) 08/13/2019 Patient seen and examined He is up in the chair His nurse states he was able to walk to the bathroom twice His feet both still look necrotic Discussed with RN Chart reviewed 08/12/2021 Patient seen and examined Discussed with RN Chart reviewed Left foot still looks necrotic across the toes and the heel The right foot looks slightly better with slight healing of the heel but the toes are still quite necrotic 08/11/2021 Patient seen and examined Discussed with RN Chart reviewed Discussed with case management He took 8 steps yesterday 08/10/2021 Patient seen and examined exam discussed with case management Discussed with RN Chart reviewed No change clinically still wearing lower extremity protectors the toes are necrotic as are the heels 08/09: Seen sitting in chair today. He is wearing his postoperative shoes feels he is minimally stronger. Short of breath on exertion. 08/08: Seen and examined bedside. He is awaiting therapy evaluation today. Foot pain is well controlled. No worsening erythema or fevers but does have some arleen inage on the lateral left heel wound. No shortness of breath or chest pain. 08/04/2021 Patient seen and examined He is resting with no apparent distress Discussed with case management Chart reviewed Vascular surgery saw him again yesterday and is hoping to only have to do TMA in the future instead of BKA if we let his feett tissues try to recover for a few weeks Appreciate vascular input. 08/03/2021 Patient seen and examined Laying comfortably in bed with flat affect Bilateral heel protectors present; Dry gangrene present on bilateral toes and heels; Discussed with the wound care nurse Discussed with patient the need for vascular surgery input regarding foot surgery and potential bilateral BKA Chart reviewed Discussed with RN 08/02/2021 Patient seen and examined Discussed with RN Chart reviewed He is resting with no apparent distress 08/01/2021 Patient seen and examined He seems depressed and very weak He has heel protectors on both the toes that are exposed are extremely gangrenous and black and demarcated Discussed with the wound care nurse He explains that vascular surgery is awaiting the complete demarcation to finish up and then they will consider surgery at that time Chart reviewed Discussed with RN 07/31/2021 Patient seen and examined Discussed plan Chart reviewed Still feeling weak Mr Lambert is a 60-year-old male that presented 06/29/2021 via [facility] with decreased level of consciousness. Most of the history was obtained via EMS and patient's friend Reese [phone], who states that patient has been sick since about June 22 per Reese, he states that they both had cough cold headache sinus type pain. Per Reese's report patient is okay during the day and very alert and orientated and at night he has a decreased alertness. Patient is unable to help with exam when asked questions he does deny any past medical history, surgeries, or any other health conditions. Reese who is his roommate collaborates any information gotten from the patient. Accu-Chek per EMS was 250, room air sat in the room was 88 to 90%. 07/07: not much improved, about the same. cont current. PULM following. we have no clinimix, cont D5 fluid, 07/08: more alert, can try ST again, if able to sit up, still very weak 07/09: much more alert, bedside swallow of water ok, sits upright, much stronger, will try clears if able, ST to follow. toes are worsening, now hannah leigh consult podiatry to follow, 07/10: More alert. Working with speech and swallowing today. Off O2. Less confused. Bilateral toe ulcers assessed by podiatry today. 07/11: More alert, eating. Arterial Doppler was left popliteal and severe distal disease bilaterally. Still has a little bit of a cough. Less confused today. 07/12: Eating reasonably well. Tentative plans for angiogram for consideration of limb salvage bilateral feet tomorrow. Discussed with cardiology. He will need significant follow-up care likely eventual amputations. 07/13: N.p.o. for angiogram today with bilateral SFA occlusive disease and left popliteal disease with left posterior tibial artery with some flow otherwise occlusive disease per cardiology. Discussed vascular surgery consultation for consideration of definitive revascularization with likely bilateral transmetatarsal amputations. Still with a little bit of a cough. Shortness of breath 07/14: Seen bedside. Having some pain in his bilateral extremities. Shortness of breath improved still with little bit of cough. Eating again. Amenable to revascularization and likely surgical debridement next week. Increasing thro mboprophylaxis 07/15: Seen bedside. Not hypoxic. Cough is improving. He feels he is mental status is improved but he is definitely still mentating slowly. Complains of foot pain. He is contemplating surgical options but is okay with what ever the surgeons to choose for his likely lower extremity bypass tentatively planned for 07/17/202107/16: Bilateral foot pain still with cough but improving. Still is contemplating surgical options. 07/17: Patient off floor for surgery today. Chart evaluated. s/p bilateral pop/tibial thrombectomies with patch angioplasty. s/p RLE hematoma evacuation 07/18: Patient did and examined at bedside. He is postop day 1 from bilateral thrombectomies yesterday. Looks like he may need more surgery prior to discharge. Continue heparin drip. Suspect leukocytosis today secondary to surgery. Continue current. 07/19: Patient evaluated examined at bedside. He was working with physical therapy when seen. Continuing heparin drip. Recheck CBC today. Cardiology following vascular following. Will likely need further surgery prior to discharge. 07/20: Seen at bedside. Having RLE pain and had Hgb drop overnight. Will transfuse. Stop heparin drip for now. Seen by vascular, hematoma evacuation ordered. serial Hgb. 07/21: Patient evaluated examined at bedside. Hemoglobin improved up to 8.1 today. Underwent hematoma evacuation yesterday. Planning for further i ntervention next week. 07/22: Examine and evaluated at bedside. Resting in bed no major complaints. Hemoglobin stable. Appreciate Cardiology resuming heparin. Further intervention next week. 07/23: Seen at bedside no motor complaints. Hemoglobin still stable. No major clinical changes for today. Intervention this coming week. 07/24: Seen bedside. Has good appetite no cough shortness of breath or chest pain. Left heel with more gangrenous changes left feet. Plan for n.p.o. after midnight 07/25: Seen bedside. N.p.o. for bilateral foot debridement today. K3. Glucose low 100s. Has a friend visiting today. No chest pain or shortness of breath. Pain controlled. 2/2: Changes in the off heparin drip to Xarelto. No significant anticoagulation for 3 months then can start progressive ambulation with physical therapy with postop shoe per vascular surgery recommendations. No shortness of breath or chest pain today just very weak. 2/3: Up to chair today, has more bilateral foot pain, now wearing post -op meagan es. No SOB or cough. He is asking to get back into bed. Encouraged to continue trying to get on his feet. 24: In bed. Foot pain is improved from yesterday. No shortness of breath no cough. Still very weak even weak eating today. 25: Seen in bed. No foot pain today. No shortness of breath or cough. Still weak eating well. Not out of bed today. Glucose low 100s. 26: Seen in bed. Pain-free eating breakfast in bed. Still feeling weak has been up on his foot the last day. Glucose well controlled. Vitals/I&O Vitals/I&O: Vital Signs Date Time Temp Pulse Resp B/P (MAP) Pulse Ox O2 Delivery O2 Flow Rate FiO2 08/21/21 11:00 97.7 96 20 126/73 (90) 92 Room Air 97.7 I & O 08/20/21 08/20/21 08/21/21 15:00 23:00 07:00 Intake Total 240 ml 50 ml Output Total 500 ml 200 ml Balance -500 ml 40 ml 50 ml Physical Exam Physical Exam: lethargic and weak General: No acute distress, Other (Resting) Heart: Regular rate Lungs: Clear Abdomen: Normal bowel sounds Extremities: Other (Severely black toes please see the pictures) Skin: Other (No further hematoma accumulation) Labs Labs: Laboratory Tests Test 08/20/21 12:02 08/20/21 16:55 08/20/21 20:07 08/21/21 07:29 Glucose (Fingerstick) 142 mg/dL (70-99) 116 mg/dL (70-99) 149 mg/dL (70-99) 98 mg/dL (70-99) Test 08/21/21 11:16 Glucose (Fingerstick) 120 mg/dL (70-99) Assessment and Plan Assessmemt and Plan Problems Medical Problems: (1) Dehydration Status: Acute (2) Mental status alteration Status: Acute (3) Pneumonia Status: Acute Comment Review of Relevant I have reviewed the following items amanda (where applicable) has been applied. Justifications for Admission Other Justification COVID-19 positive test (U07.1, COVID-19) with Acute Pneumonia (J12.89, Other v iral pneumonia) (If respiratory failure or sepsis present, add as separate assessment) SIMONE COOPER MD Aug 21, 2021 11:58
--- NOTE | 2021-08-21 11:58 | NUR ---
SW following. Discussed with RN, MYLENE request [facility] review pt for [facility] acute rehab placement. Awaiting decision. SW will continue to follow.
[2021-08-21] MEDS: oxyCODONE/APAP 5/325 1 TAB TABLET PO PRN ×2 (13:54→20:52)
[2021-08-21 15:00] VITALS: BP 126/80
[2021-08-21] MEDS: RIVAROXABAN 10 MG TABLET. PO SCH (18:02)
[2021-08-21 19:00] VITALS: BP 123/72
[2021-08-21] MEDS: ATORVASTATIN CALCIUM 20 MG TABLET PO SCH (20:52)
[2021-08-21 23:00] VITALS: BP 128/70
[2021-08-22 03:00] VITALS: BP 101/58
[2021-08-22 07:00] VITALS: BP 133/74
[2021-08-22] MEDS: INSULIN LISPRO 300 UNITS/3 ML VIAL. SQ SCH ×3 (07:43→17:00)
[2021-08-22] MEDS: PANTOPRAZOLE 40 MG TABLET.DR. PO SCH (07:50)
--- NOTE | 2021-08-22 08:54 | PDOC ---
Provider Note Date of Service: DATE: 08/22/21 TIME: 08:46 Provider Note Provider Note Vascular S: Patient is resting comfortably in bed, he does complain of some discomfort in his left fifth toe. States he is able to ambulate more easily. O: Awake and alert Vital signs stable, afebrile Bilateral calf incisions are dry and intact, a healing nicely. Multiple digit dry gangrene, he is starting to have some separation of the gangrenous tissue. No drainage. Bilateral heel gangrenous eschar, no drainage or bogginess. Palpable bilateral PT pulses Motor and sensation intact A/P: 1. 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 2. History of COVID pneumonia. 3. 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 s/p bilateral pop/tibial thrombectomies with patch angioplasty 07/17/2021. Feet are well perfused. s/p RLE hematoma evacuation 07/20/2021 He is doing well post procedures. He continues to have gangrenous changes and demarcation to bilateral feet and heels, he is starting to exhibit separation of the gangrenous tissue. Continue to monitor for signs of infection. Will discuss with Vascular surgeon. He may be approaching time frame for toe amputations. - Continue anticoagulation - Keep incisions clean and dry - Continue to off-load heels. - Continue PT/OT, no restrictions, may place pressure on heels while walking Justicifation of Admission Dx: Justifications for Admission: Justification of Admission Dx: Yes FAITH YUNG APRN Aug 22, 2021 08:54
[2021-08-22] MEDS: ASPIRIN CHEWABLE 81 MG TABLET. PO SCH (09:21)
[2021-08-22] MEDS: ASCORBIC ACID 500 MG TABLET PO SCH (09:21)
[2021-08-22] MEDS: ZINC SULFATE 220 MG CAPSULE. PO SCH (09:21)
[2021-08-22] MEDS: METOPROLOL TART IMMED RELEASE 25 MG TABLET. PO SCH ×2 (09:21→20:24)
[2021-08-22] MEDS: THIAMINE 100 MG TABLET. PO SCH (09:21)
[2021-08-22] MEDS: NYSTATIN TOPICAL POWDER 15GM BOTTLE. TP SCH ×2 (09:23→20:24)
[2021-08-22 10:21] VITALS: BP 122/74
--- NOTE | 2021-08-22 11:24 | NUR ---
SW following. [facility] - they feel the patient can discharge home soon. Vascular revisiting for amputation. SW will continue to follow.
--- NOTE | 2021-08-22 14:00 | PDOC ---
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 s/p bilateral pop/tibial thrombectomies with patch angioplasty s/p RLE hematoma evacuation Metabolic cephalopathy Probable Covid toes IVORY Lactic acidosis Dysphagia Malnutrition Heel erythema Poor nail care History of Present Illness History of Present Illness 08/22/2021 No acute events overnight. Patient seen and examined bedside. Pending vascular surgery evaluation for possible toe amputations. Continue wound care for now. 08/21 [place] examined at bedside. Clinically stable. Rehab screen. Continue current plan otherwise. 08/20 Eval examined at bedside. No complaints, no distress. Rehab screen tomorrow. 08/19 Evaluated examined at bedside. Resting in bed did not appear in any distress. Continue therapy modalities 08/18 Evaluated examined at bedside. No major complaints. No distress. Screen for rehab on Saturday. 08/17 Evaluated examined at bedside. Resting in bed did not appear in any distress. Continue therapy for modalities 08/16/2021 Patient seen and examined Discussed with RN Chart reviewed He is resting with no apparent distress 08/15/21 Patient seen and examined Dobbins removed yesterday, incision site looks good IV came out, will leave out unless need arises Discussed w RN Chart reviewed 08/14/2021 Patient seen and examined Discussed with RN Chart reviewed I called the vascular surgery nurse practitioner to see if they could take the janet out They said they would come later today to check on that (appreciate their help) 08/13/2019 Patient seen and examined He is up in the chair His nurse states he was able to walk to the bathroom twice His feet both still look necrotic Discussed with RN Chart reviewed 08/12/2021 Patient seen and examined Discussed with RN Chart reviewed Left foot still looks necrotic across the toes and the heel The right foot looks slightly better with slight healing of the heel but the toes are still quite necrotic 08/11/2021 Patient seen and examined Discussed with RN Chart reviewed Discussed with case management He took 8 steps yesterday 08/10/2021 Patient seen and examined exam discussed with case management Discussed with RN Chart reviewed No change clinically still wearing lower extremity protectors the toes are necrotic as are the heels 08/09: Seen sitting in chair today. He is wearing his postoperative shoes feels he is minimally stronger. Short of breath on exertion. 08/08: Seen and examined bedside. He is awaiting therapy evaluation today. Foot pain is well controlled. No worsening erythema or fevers but does have some drainage on the lateral left heel wound. No shortness of breath or chest pain. 08/04/2021 Patient seen and examined He is resting with no apparent distress Discussed with case management Chart reviewed Vascular surgery saw him again yesterday and is hoping to only have to do TMA in the future instead of BKA if we let his feett tissues try to recover for a few weeks Appreciate vascular input. 08/03/2021 Patient seen and examined Laying comfortably in bed with flat affect Bilateral heel protectors present; Dry gangrene present on bilateral toes and heels; Discussed with the wound care nurse Discussed with patient the need for vascular surgery input regarding foot surgery and potential bilateral BKA Chart reviewed Discussed with RN 08/02/2021 Patient seen and examined Discussed with RN Chart reviewed He is resting with no apparent distress 08/01/2021 Patient seen and examined He seems depressed and very weak He has heel protectors on both the toes that are exposed are extremely gangrenous and black and demarcated Discussed with the wound care nurse He explains that vascular surgery is awaiting the complete demarcation to finish up and then they will consider surgery at that time Chart reviewed Discussed with RN 07/31/2021 Patient seen and examined Discussed plan Chart reviewed Still feeling weak Mr Lambert is a 60-year-old male that presented 06/29/2021 via [facility] with decreased level of consciousness. Most of the history was obtained via EMS and patient's friend Reese [phone], who states that patient has been sick since about June 22 per Reese, he states that they both had cough cold headache sinus type pain. Per Reese's report patient is okay during the day and very alert and orientated and at night he has a decreased alertness. Patient is unable to help with exam when asked questions he does deny any past medical history, surgeries, or any other health conditions. Reese who is his roommate collaborates any information gotten from the patient. Accu-Chek per EMS was 250, room air sat in the room was 88 to 90%. 07/07: not much improved, about the same. cont current. PULM following. we have no clinimix, cont D5 fluid, 07/08: more alert, can try ST again, if able to sit up, still very weak 07/09: much more alert, bedside swallow of water ok, sits upright, much stronger, will try clears if able, ST to follow. toes are worsening, now black, hannah consult podiatry to follow, 07/10: More alert. Working with speech and swallowing today. Off O2. Less confused. Bilateral toe ulcers assessed by podiatry today. 07/11: More alert, eating. Arterial Doppler was left popliteal and severe distal disease bilaterally. Still has a little bit of a cough. Less confused today. 07/12: Eating reasonably well. Tentative plans for angiogram for consideration of limb salvage bilateral feet tomorrow. Discussed with cardiology. He will need significant follow-up care likely eventual amputations. 07/13: N.p.o. for angiogram today with bilateral SFA occlusive disease and left popliteal disease with left posterior tibial artery with some flow otherwise occlusive disease per cardiology. Discussed vascular surgery consultation for consideration of definitive revascularization with likely bilateral transmetatarsal amputations. Still with a little bit of a cough. Shortness of breath 07/14: Seen bedside. Having some pain in his bilateral extremities. Shortness of breath improved still with little bit of cough. Eating again. Amenable to revascularization and likely surgical debridement next week. Increasing thromboprophylaxis 07/15: Seen bedside. Not hypoxic. Cough is improving. He feels he is mental status is improved but he is definitely still mentating slowly. Complains of foot pain. He is contemplating surgical options but is okay with what ever the surgeons to choose for his likely lower extremity bypass tentatively planned for 07/17/202107/16: Bilateral foot pain still with cough but improving. Still is contemplating surgical options. 07/17: Patient off floor for surgery today. Chart evaluated. s/p bilateral pop/tibial thrombectomies with patch angioplasty. s/p RLE hematoma evacuation 07/18: Patient did and examined at bedside. He is postop day 1 from bilateral thrombectomies yesterday. Looks like he may need more surgery prior to discharge. Continue heparin drip. Suspect leukocytosis today secondary to surgery. Continue current. 07/19: Patient evaluated examined at bedside. He was working with physical therapy when seen. Continuing heparin drip. Recheck CBC today. Cardiology following vascular following. Will likely need further surgery prior to discharge. 07/20: Seen at bedside. Having RLE pain and had Hgb drop overnight. Will transfuse. Stop heparin drip for now. Seen by vascular, hematoma evacuation o rdered. serial Hgb. 07/21: Patient evaluated examined at bedside. Hemoglobin improved up to 8.1 today. Underwent hematoma evacuation yesterday. Planning for further intervention next week. 07/22: Examine and evaluated at bedside. Resting in bed no major complaints. Hemoglobin stable. Appreciate Cardiology resuming heparin. Further intervention next week. 07/23: Seen at bedside no motor complaints. Hemoglobin still stable. No major clinical changes for today. Intervention this coming week. 07/24: Seen bedside. Has good appetite no cough shortness of breath or chest pain. Left heel with more gangrenous changes left feet. Plan for n.p.o. after midnight 07/25: Seen bedside. N.p.o. for bilateral foot debridement today. K3. Glucose low 100s. Has a friend visiting today. No chest pain or shortness of breath. Pain controlled. 2/2: Changes in the off heparin drip to Xarelto. No significant anticoagulation for 3 months then can start progressive ambulation with physical therapy with postop shoe per vascular surgery recommendations. No shortness of breath or chest pain today just very weak. 2/3: Up to chair today, has more bilateral foot pain, now wearing post -op shoes. No SOB or cough. He is asking to get back into bed. Encouraged to continue trying to get on his feet. 2: In bed. Foot pain is improved from yesterday. No shortness of breath no cough. Still very weak even weak eating today. 2: Seen in bed. No foot pain today. No shortness of breath or cough. Still weak eating well. Not out of bed today. Glucose low 100s. 2: Seen in bed. Pain-free eating breakfast in bed. Still feeling weak has been up on his foot the last day. Glucose well controlled. Vitals/I&O Vitals/I&O: Vital Signs Date Time Temp Pulse Resp B/P (MAP) Pulse Ox O2 Delivery O2 Flow Rate FiO2 08/22/21 10:21 96.5 94 18 122/74 (90) 96 Room Air 96.5 I & O 08/21/21 08/21/21 08/22/21 15:00 23:00 07:00 Intake Total 0 ml 120 ml 120 ml Output Total 250 ml 100 ml Balance -250 ml 20 ml 120 ml Physical Exam Physical Exam: lethargic and weak General: Alert, Oriented X3, Cooperative, No acute distress, Other (Resting) Heart: Regular rate Lungs: Clear Abdomen: Normal bowel sounds Extremities: Other (Severely black toes please see the pictures) Skin: Other (No further hematoma accumulation) Labs Labs: Laboratory Tests Test 08/21/21 16:32 08/21/21 18:53 08/22/21 07:14 08/22/21 11:50 Glucose (Fingerstick) 144 mg/dL (70-99) 117 mg/dL (70-99) 114 mg/dL (70-99) 133 mg/dL (70-99) Assessment and Plan Assessmemt and Plan Problems Medical Problems: (1) Dehydration Status: Acute (2) Mental status alteration Status: Acute (3) Pneumonia Status: Acute Comment Review of Relevant I have reviewed the following items amanda (where applicable) has been applied. Justifications for Admission Other Justification COVID-19 positive test (U07.1, COVID-19) with Acute Pneumonia (J12.89, Other v iral pneumonia) (If respiratory failure or sepsis present, add as separate assessment) BRIANA MOHR MD Aug 22, 2021 14:00
[2021-08-22 14:56] VITALS: BP 104/80
--- NOTE | 2021-08-22 16:00 | RAD ---
XR BILAT FEET 3 VIEWS Clinical Indication: Osteomyelitis. Comparison: None. Findings: Right: No bone erosion of the phalanges is identified. There is no acute fracture. Joint spaces are maintain ed. No dorsal soft tissue swelling. Small inferior calcaneal bone spur. Left: No bone erosion of the phalanges is identified. No acute fracture is seen. Joint spaces are maintaine d. There is no dorsal soft tissue swelling. Question hammertoe deformities of the toes. Small inferio r calcaneal bone spur. IMPRESSION: No radiographic evidence of osteomyelitis. Electronically signed by: Jorden Inman MD (08/22/2021 3:58 PM) [facility]
[2021-08-22] MEDS: RIVAROXABAN 10 MG TABLET. PO SCH (17:24)
[2021-08-22 19:36] VITALS: BP 121/75
[2021-08-22] MEDS: oxyCODONE/APAP 5/325 1 TAB TABLET PO PRN (20:24)
[2021-08-22] MEDS: ATORVASTATIN CALCIUM 20 MG TABLET PO SCH (20:24)
[2021-08-22 23:08] VITALS: BP 105/68
[2021-08-23 03:59] VITALS: BP 106/77
[2021-08-23 05:02] LABS: BASO # 0.1 x10^3/uL (0.0-0.2); BASO % 2 % (0-3); EOS # 0.6 x10^3/uL (0.0-0.7); EOS % 7 % (0-3); HEMATOCRIT 36.6 % (39.0-53.0); HEMOGLOBIN 11.5 g/dL (13.0-17.5); LYMPH # 3.1 x10^3/uL (1.0-4.8); LYMPH % 37 % (24-48); MEAN CORPUSCULAR HEMOGLOBIN 28 pg (25-35); MEAN CORPUSCULAR HGB CONC 31 g/dL (31-37); MEAN CORPUSCULAR VOLUME 90 fL (79-100); MONO # 0.9 x10^3/uL (0.0-1.1); MONO % 11 % (0-9); NEUT # 3.7 x10^3/uL (1.8-7.7); NEUT % 44 % (31-73); PLATELET COUNT 292 x10^3/uL (140-400); RED BLOOD COUNT 4.04 x10^6/uL (4.30-5.70); RED CELL DISTRIBUTION WIDTH 16.1 % (11.5-14.5); WHITE BLOOD COUNT 8.4 x10^3/uL (4.0-11.0)
[2021-08-23 07:00] VITALS: BP 110/71
[2021-08-23] MEDS: INSULIN LISPRO 300 UNITS/3 ML VIAL. SQ SCH ×3 (07:46→17:00)
[2021-08-23] MEDS: ZINC SULFATE 220 MG CAPSULE. PO SCH (08:04)
[2021-08-23] MEDS: ASPIRIN CHEWABLE 81 MG TABLET. PO SCH (08:04)
[2021-08-23] MEDS: METOPROLOL TART IMMED RELEASE 25 MG TABLET. PO SCH ×2 (08:04→21:41)
[2021-08-23] MEDS: THIAMINE 100 MG TABLET. PO SCH (08:04)
[2021-08-23] MEDS: ASCORBIC ACID 500 MG TABLET PO SCH (08:04)
[2021-08-23] MEDS: PANTOPRAZOLE 40 MG TABLET.DR. PO SCH (08:04)
[2021-08-23] MEDS: NYSTATIN TOPICAL POWDER 15GM BOTTLE. TP SCH ×2 (09:00→22:41)
[2021-08-23 11:00] VITALS: BP 103/66
--- NOTE | 2021-08-23 11:06 | PDOC ---
PROGRESS NOTES Date of Service DATE: 08/23/21 TIME: 10:58 Subjective Subjective Patient was admitted for COVID, metabolic encephalopathy, s/p bilateral popliteal and tibial selective thrombectomies and noted subsequent adequate pedal pulses to bilateral feet. Patient was consulted on discolored purple toes 1 through 5, plantar medial heels, bilateral. Labs were insignificant for leukocytosis. Patient is not on any antibiotic therapy. At bedside, patient denies pain to either foot. He has been mostly bedbound and offloaded with Prevalon boots. Otherwise, patient denies history of tobacco abuse, vasculitis or any cardiovascular disease. Objective Objective Vital Signs Date Time Temp Pulse Resp B/P (MAP) Pulse Ox O2 Delivery O2 Flow Rate FiO2 08/23/21 08:04 85 110/71 08/23/21 08:00 Room Air 08/23/21 07:00 97.9 18 94 97.9 08/18/21 17:44 96.0 l Intake and Output 08/23/21 07:00 Intake Total 1220 ml Output Total 700 ml Balance 520 ml Intake Oral 1220 ml Output Urine Total 700 ml Physical Exam Physical Exam General: Pleasant without apparent distress, AOx3 Bilateral lower extremity Dermatology: -Ischemic, necrotic digital changes 1 through 5 to the level of the MTPJ, worse on the left -There is mild serosanguineous drainage at the level of plantar IPJ joints near the skin folds, worse on the left. -Otherwise, there is no fluctuance, proximal streaking -Erythematous decubitus preulceration to the medial plantar heels, bilateral -Dystrophic nails 1 through 5, bilateral Vascular: -Faintly palpable pedal pulses to the right, nonpalpable DP/PT on the left -Foot is warm to touch -The erythema/ischemic digital changes is not blanchable Neurology: -Light touch sensation diminished to the level of midfoot MSK: -No TTP to digits 1 through 5 or plantar heel, bilateral -Able to move digits, minimally -Muscle strength 5 out of 5 across ankle joint -Calf is soft and nontender -No TTP along the Achilles tendon from the insertion site -No TTP at the Kager's triangle Assessment Assessment Problems Medical Problems: (1) Dehydration Status: Acute (2) Mental status alteration Status: Acute (3) Pneumonia Status: Acute Plan Plan of Care 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 According to their note, they have plans for surgical amputation, but I will be available for consult and assistance for surgical management. Comment Review of Relevant I have reviewed the following items amanda (where applicable) has been applied. Labs Laboratory Tests Test 08/21/21 11:16 08/21/21 16:32 08/21/21 18:53 08/22/21 07:14 Glucose (Fingerstick) 120 mg/dL (70-99) 144 mg/dL (70-99) 117 mg/dL (70-99) 114 mg/dL (70-99) Test 08/22/21 11:50 08/22/21 16:32 08/22/21 20:43 08/23/21 03:30 Glucose (Fingerstick) 133 mg/dL (70-99) 123 mg/dL (70-99) 136 mg/dL (70-99) White Blood Count 8.4 x10^3/uL (4.0-11.0) Red Blood Count 4.04 x10^6/uL (4.30-5.70) Hemoglobin 11.5 g/dL (13.0-17.5) Hematocrit 36.6 % (39.0-53.0) Mean Corpuscular Volume 90 fL (79-100) Mean Corpuscular Hemoglobin 28 pg (25-35) Mean Corpuscular Hemoglobin Concent 31 g/dL (31-37) Red Cell Distribution Width 16.1 % (11.5-14.5) Platelet Count 292 x10^3/uL (140-400) Neutrophils (%) (Auto) 44 % (31-73) Lymphocytes (%) (Auto) 37 % (24-48) Monocytes (%) (Auto) 11 % (0-9) Eosinophils (%) (Auto) 7 % (0-3) Basophils (%) (Auto) 2 % (0-3) Neutrophils # (Auto) 3.7 x10^3/uL (1.8-7.7) Lymphocytes # (Auto) 3.1 x10^3/uL (1.0-4.8) Monocytes # (Auto) 0.9 x10^3/uL (0.0-1.1) Eosinophils # (Auto) 0.6 x10^3/uL (0.0-0.7) Basophils # (Auto) 0.1 x10^3/uL (0.0-0.2) Test 08/23/21 07:44 Glucose (Fingerstick) 94 mg/dL (70-99) Laboratory Tests Test 08/22/21 11:50 08/22/21 16:32 08/22/21 20:43 08/23/21 03:30 Glucose (Fingerstick) 133 mg/dL (70-99) 123 mg/dL (70-99) 136 mg/dL (70-99) White Blood Count 8.4 x10^3/uL (4.0-11.0) Red Blood Count 4.04 x10^6/uL (4.30-5.70) Hemoglobin 11.5 g/dL (13.0-17.5) Hematocrit 36.6 % (39.0-53.0) Mean Corpuscular Volume 90 fL (79-100) Mean Corpuscular Hemoglobin 28 pg (25-35) Mean Corpuscular Hemoglobin Concent 31 g/dL (31-37) Red Cell Distribution Width 16.1 % (11.5-14.5) Platelet Count 292 x10^3/uL (140-400) Neutrophils (%) (Auto) 44 % (31-73) Lymphocytes (%) (Auto) 37 % (24-48) Monocytes (%) (Auto) 11 % (0-9) Eosinophils (%) (Auto) 7 % (0-3) Basophils (%) (Auto) 2 % (0-3) Neutrophils # (Auto) 3.7 x10^3/uL (1.8-7.7) Lymphocytes # (Auto) 3.1 x10^3/uL (1.0-4.8) Monocytes # (Auto) 0.9 x10^3/uL (0.0-1.1) Eosinophils # (Auto) 0.6 x10^3/uL (0.0-0.7) Basophils # (Auto) 0.1 x10^3/uL (0.0-0.2) Test 08/23/21 07:44 Glucose (Fingerstick) 94 mg/dL (70-99) Medications Current Medications Sodium Chloride 1,000 ml @ 999 mls/hr 1X ONCE IV Last administered on 06/29/21at 19:10; Start 06/29/21 at 19:00; Stop 06/29/21 at 20:00; Status DC Dexamethasone Sodium Phosphate (Decadron) 10 mg 1X ONCE IV Last administered on 06/29/21at 20:30; Start 06/29/21 at 20:00; Stop 06/29/21 at 20:05; Status DC Sodium Chloride 1,000 ml @ 999 mls/hr 1X ONCE IV Last administered on 06/29/21at 20:30; Start 06/29/21 at 20:00; Stop 06/29/21 at 21:00; Status DC Ceftriaxone Sodium (Rocephin) 1 gm 1X ONCE IVP Last administered on 06/29/21at 20:29; Start 06/29/21 at 20:00; Stop 06/29/21 at 20:05; Status DC Azithromycin 250 ml @ 250 mls/hr 1X ONCE IV Last administered on 06/29/21at 20:00; Start 06/29/21 at 20:00; Stop 06/29/21 at 20:59; Status DC Sodium Chloride 1,000 ml @ 75 mls/hr [id number] IV Last administered on 06/30/21at 12:32; Start 06/29/21 at 20:45; Stop 06/30/21 at 20:44; Status DC Info (FLU VACCINE SCREEN per RX) 0.5 each 1X ONCE MC ; Start 07/01/21 at 09:00; Stop 07/01/21 at 09:01; Status DC Ascorbic Acid (Vitamin C) 3,000 mg TID PO Last administered on 07/25/21at 12:10; Start 06/30/21 at 21:00; Stop 07/25/21 at 15:43; Status DC Dexamethasone Sodium Phosphate (Decadron) 6 mg DAILY IVP Last administered on 07/10/21at 08:57; Start 06/30/21 at 16:00; Stop 07/10/21 at 12:29; Status DC Thiamine Mononitrate (Vitamin B-1) 300 mg DAILY PO Last administered on 07/25/21at 12:10; Start 06/30/21 at 16:00; Stop 07/25/21 at 15:43; Status DC Zinc Sulfate (Orazinc) 220 mg DAILY PO Last administered on 08/23/21at 08:04; Start 06/30/21 at 16:00 Sennosides (Senna) 17.2 mg PRN BID PRN PO CONSTIPATION Last administered on 08/13/21at 09:08; Start 06/30/21 at 15:15 Docusate Sodium (Colace) 100 mg PRN DAILY PRN PO HARD STOOLS Last administered on 08/13/21at 09:08; Start 06/30/21 at 15:15 Ondansetron HCl (Zofran) 4 mg PRN Q6HRS PRN IVP NAUSEA/VOMITING, 1st CHOICE; Start 06/30/21 at 15:15; Stop 07/05/21 at 14:02; Status DC Dextrose (Dextrose 50%-Water Syringe) 12.5 gm PRN Q15MIN PRN IV SEE COMMENTS; Start 06/30/21 at 15:15; Stop 07/05/21 at 12:45; Status DC Acetaminophen (Tylenol) 650 mg PRN Q4HRS PRN PO TEMP OVER 100.4F OR MILD PAIN; Start 06/30/21 at 15:15 Lorazepam (Ativan) 0.5 mg PRN Q6HRS PRN PO ANXIETY / AGITATION; Start 06/30/21 at 15:15; Stop 07/05/21 at 14:02; Status DC Lorazepam (Ativan Inj) 0.25 mg PRN Q4HRS PRN IV ANXIETY / AGITATION; Start 06/30/21 at 15:15; Stop 07/05/21 at 14:02; Status DC Enoxaparin Sodium (Lovenox 40mg Syringe) 40 mg Q24H SQ Last administered on 07/13/21at 17:20; Start 06/30/21 at 16:00; Stop 07/14/21 at 12:21; Status DC Prochlorperazine Edisylate (Compazine) 10 mg PRN Q6HRS PRN IV NAUSEA/VOMITING, 2nd CHOICE; Start 06/30/21 at 15:15; Stop 07/05/21 at 14:02; Status DC Diphenhydramine HCl (Benadryl) 25 mg PRN Q6HRS PRN IVP ITCHING; Start 06/30/21 at 15:15; Stop 07/05/21 at 14:02; Status DC Diphenhydramine HCl (Benadryl) 25 mg PRN Q6HRS PRN PO ITCHING; Start 06/30/21 at 15:15; Stop 07/05/21 at 14:02; Status DC Diphenhydramine HCl (Benadryl) 25 mg PRN QHS PRN PO INSOMNIA, 1ST CHOICE; Start 06/30/21 at 15:15; Stop 07/05/21 at 14:02; Status DC Zolpidem Tartrate (Ambien) 2.5 mg PRN QHS PRN PO INSOMNIA, 2ND CHOICE; Start 06/30/21 at 15:15; Stop 07/05/21 at 14:02; Status DC Pantoprazole Sodium (PROTONIX VIAL for IV PUSH) 40 mg DAILYAC IVP Last administered on 07/27/21at 08:44; Start 06/30/21 at 16:00; Stop 07/27/21 at 16:51; Status DC Amino Acids/ Electrolytes/ Dextrose 1,000 ml @ 80 mls/hr [id number] IV ; Start 07/04/21 at 09:15; Status UNV Dextrose/Lactated Ringer's 1,000 ml @ 80 mls/hr [id number] IV Last administered on 07/12/21at 06:27; Start 07/04/21 at 09:30; Stop 07/12/21 at 10:58; Status DC Insulin Human Lispro (HumaLOG) 0-5 UNITS TIDWMEALS SQ Last administered on 08/16/21at 12:05; Start 07/05/21 at 17:00 Dextrose (Dextrose 50%-Water Syringe) 12.5 gm PRN Q15MIN PRN IV SEE COMMENTS Last administered on 07/09/21at 23:48; Start 07/05/21 at 12:45 Aspirin (Ecotrin) 81 mg DAILYWBKFT PO Last administered on 07/20/21at 08:52; Start 07/11/21 at 15:00; Stop 07/20/21 at 14:10; Status DC Atorvastatin Calcium (Lipitor) 20 mg QHS PO Last administered on 08/22/21at 20:24; Start 07/11/21 at 21:00 Metoprolol Tartrate (Lopressor) 25 mg BID PO Last administered on 08/23/21at 08:04; Start 07/12/21 at 12:15 Heparin Sodium/ Sodium Chloride (HEPARIN for ARTERIAL LINE FLUSH) 1,000 unit 1X ONCE IART Last administered on 07/13/21at 13:00; Start 07/13/21 at 13:00; Stop 07/13/21 at 13:01; Status DC Heparin Sodium/ Sodium Chloride (HEPARIN for ARTERIAL LINE FLUSH) 1,000 unit 1X ONCE IART Last administered on 07/13/21at 13:00; Start 07/13/21 at 13:00; Stop 07/13/21 at 13:01; Status DC Midazolam HCl (Versed) 2 mg 1X ONCE IV Last administered on 07/13/21at 13:20; Start 07/13/21 at 13:00; Stop 07/13/21 at 13:01; Status DC Fentanyl Citrate (Fentanyl 2ml Vial) 100 mcg 1X ONCE IV Last administered on 07/13/21at 13:20; Start 07/13/21 at 13:00; Stop 07/13/21 at 13:01; Status DC Iodixanol (Visipaque 320) 100 ml 1X ONCE IART Last administered on 07/13/21at 13:50; Start 07/13/21 at 13:00; Stop 07/13/21 at 13:01; Status DC Lidocaine HCl (Lidocaine 1% 20ml Vial) 20 ml 1X ONCE INJ Last administered on 07/13/21at 13:22; Start 07/13/21 at 13:00; Stop 07/13/21 at 13:01; Status DC Nitroglycerin (Nitroglycerin) 200 mcg 1X ONCE IART Last administered on 07/13/21at 13:23; Start 07/13/21 at 13:30; Stop 07/13/21 at 13:35; Status DC Verapamil HCl (Verapamil) 2.5 mg 1X ONCE IART Last administered on 07/13/21at 13:23; Start 07/13/21 at 13:30; Stop 07/13/21 at 13:35; Status DC Heparin Sodium (Porcine) (Heparin Sodium) 2,500 unit 1X ONCE IART Last administered on 07/13/21at 13:30; Start 07/13/21 at 13:30; Stop 07/13/21 at 13:35; Status DC Potassium Chloride (Klor-Con) 20 meq 1X ONCE PO Last administered on 07/14/21at 11:48; Start 07/14/21 at 11:00; Stop 07/14/21 at 11:01; Status DC Enoxaparin Sodium (Lovenox 80mg Syringe) 80 mg Q12HR SQ Last administered on 07/16/21at 21:01; Start 07/14/21 at 13:00; Stop 07/17/21 at 12:12; Status DC Fentanyl Citrate (Fentanyl 2ml Vial) 25 mcg PRN Q5MIN PRN IVP MILD PAIN 1-3; Start 07/17/21 at 06:00; Stop 07/18/21 at 06:00; Status DC Fentanyl Citrate (Fentanyl 2ml Vial) 50 mcg PRN Q5MIN PRN IVP MODERATE PAIN 4- 6; Start 07/17/21 at 06:00; Stop 07/18/21 at 06:00; Status DC Morphine Sulfate (Morphine Sulfate) 1 mg PRN Q10MIN PRN IVP SEVERE PAIN 7-10; Start 07/17/21 at 06:00; Stop 07/18/21 at 06:00; Status DC Ringer's Solution 1,000 ml @ 30 mls/hr Q24H IV Last administered on 07/17/21at 07:50; Start 07/17/21 at 06:00; Stop 07/17/21 at 17:59; Status DC Hydromorphone HCl (Dilaudid) 0.5 mg PRN Q10MIN PRN IVP SEVERE PAIN 7-10, 2nd CHOICE; Start 07/17/21 at 06:00; Stop 07/18/21 at 06:00; Status DC Prochlorperazine Edisylate (Compazine) 5 mg PACU PRN PRN IVP NAUSEA, MRX1; Start 07/17/21 at 06:00; Stop 07/18/21 at 06:00; Status DC Cefazolin Sodium 1 gm/Sodium Chloride 500 ml @ 500 mls/hr 1X ONCE IRR Last administered on 07/17/21at 08:57; Start 07/17/21 at 08:00; Stop 07/17/21 at 08:59; Status DC Heparin Sodium (Porcine) 5000 unit/Sodium Chloride 505 ml @ 505 mls/hr 1X ONCE IRR Last administered on 07/17/21at 08:57; Start 07/17/21 at 08:00; Stop 07/17/21 at 08:59; Status DC Sodium Chloride 1,000 ml @ 100 mls/hr Q10H IV Last administered on 07/21/21at 10:38; Start 07/17/21 at 12:00; Stop 07/21/21 at 15:21; Status DC Morphine Sulfate (Morphine Sulfate) 2 mg PRN Q2HR PRN IVP PAIN Last administered on 07/20/21at 09:38; Start 07/17/21 at 08:15; Stop 07/28/21 at 10:15; Status DC Oxycodone/ Acetaminophen (Percocet 5/325) 1 tab PRN Q4HRS PRN PO MODERATE PAIN Last administered on 08/21/21at 13:54; Start 07/17/21 at 08:15 Sugammadex Sodium (Bridion) 200 mg 1X ONCE IVP ; Start 07/17/21 at 09:30; Stop 07/17/21 at 09:31; Status DC Cefazolin Sodium 1 gm/Sodium Chloride 500 ml @ 500 mls/hr 1X ONCE IRR Last administered on 07/17/21at 10:30; Start 07/17/21 at 10:30; Stop 07/17/21 at 11:29; Status DC Cellulose (Surgicel Fibrillar 1x2) 1 each STK-MED ONCE TP Last administered on 07/17/21at 11:23; Start 07/17/21 at 11:23; Stop 07/17/21 at 11:26; Status DC Heparin Sodium/ Dextrose 250 ml @ 10 mls/hr q10hr IV ; Start 07/17/21 at 12:15; Stop 07/17/21 at 12:15; Status DC Cefazolin Sodium/ Dextrose 50 ml @ 100 mls/hr Q8HRS IV Last administered on 07/17/21at 19:52; Start 07/17/21 at 14:00; Stop 07/17/21 at 22:29; Status DC Heparin Sodium/ Dextrose 250 ml @ 10 mls/hr q10hr IV ; Start 07/17/21 at 12:15; Stop 07/17/21 at 13:04; Status DC Heparin Sodium/ Dextrose 250 ml @ 10 mls/hr CONT PRN PRN IV SEE PROTOCOL Last administered on 07/17/21at 13:00; Start 07/17/21 at 13:15; Stop 07/18/21 at 11:06; Status DC Heparin Sodium/ Dextrose 250 ml @ 13.264 mls/ hr CONT PRN IV PER PROTOCOL Last administered on 07/19/21at 21:46; Start 07/18/21 at 11:15; Stop 07/20/21 at 09:38; Status DC Heparin Sodium (Porcine) (Heparin Sodium) 2,500 unit PRN Q6HRS PRN IV FOR UFH LEVEL LESS THAN 0.2; Start 07/18/21 at 11:15; Stop 07/20/21 at 13:11; Status DC Heparin Sodium (Porcine) (Heparin Sodium) 1,250 unit PRN Q6HRS PRN IV FOR UFH LEVEL 0.2 - 0.29 Last administered on 07/18/21at 20:10; Start 07/18/21 at 11:15; Stop 07/20/21 at 13:11; Status DC Glycopyrrolate (Glycopyrrolate) 1 mg STK-MED ONCE .ROUTE ; Start 07/17/21 at 12:00; Stop 07/18/21 at 12:44; Status DC Heparin Sodium/ Sodium Chloride 500 ml @ As Directed STK-MED ONCE .ROUTE ; Start 07/13/21 at 08:02; Stop 07/18/21 at 12:49; Status DC Iodixanol (Visipaque 320) 100 ml STK-MED ONCE .ROUTE ; Start 07/13/21 at 08:02; Stop 07/18/21 at 12:49; Status DC Heparin Sodium/ Sodium Chloride 1,000 ml @ As Directed STK-MED ONCE .ROUTE ; Start 07/13/21 at 12:45; Stop 07/18/21 at 12:53; Status DC Midazolam HCl (Versed) 2 mg STK-MED ONCE .ROUTE ; Start 07/13/21 at 12:46; Stop 07/18/21 at 12:53; Status DC Fentanyl Citrate (Fentanyl 2ml Vial) 100 mcg STK-MED ONCE .ROUTE ; Start 07/13/21 at 12:46; Stop 07/18/21 at 12:53; Status DC Heparin Sodium (Porcine) (Heparin Sodium) 10,000 unit STK-MED ONCE .ROUTE ; Start 07/13/21 at 12:52; Stop 07/18/21 at 12:53; Status DC Verapamil HCl (Verapamil) 5 mg STK-MED ONCE .ROUTE ; Start 07/13/21 at 13:12; Stop 07/18/21 at 12:53; Status DC Cellulose (Surgicel Fibrillar 1x2) 1 each STK-MED ONCE .ROUTE ; Start 07/17/21 at 07:08; Stop 07/18/21 at 13:29; Status DC Iohexol (Omnipaque 300 Mg/ml) 50 ml STK-MED ONCE .ROUTE ; Start 07/17/21 at 07:08; Stop 07/18/21 at 13:29; Status DC Protamine Sulfate (Protamine) 50 mg STK-MED ONCE IV ; Start 07/17/21 at 07:08; Stop 07/18/21 at 13:29; Status DC Phenylephrine HCl (Jesus-Synephrine Inj) 10 mg STK-MED ONCE .ROUTE ; Start 07/17/21 at 05:34; Stop 07/18/21 at 13:30; Status DC Ephedrine Sulfate (ePHEDrine PF IN SALINE SYRINGE) 50 mg STK-MED ONCE IV ; Start 07/17/21 at 05:34; Stop 07/18/21 at 13:30; Status DC Succinylcholine Chloride (Anectine) 200 mg STK-MED ONCE .ROUTE ; Start 07/17/21 at 05:35; Stop 07/18/21 at 13:30; Status DC Epinephrine HCl (Adrenalin) 1 mg STK-MED ONCE .ROUTE ; Start 07/17/21 at 05:35; Stop 07/18/21 at 13:30; Status DC Protamine Sulfate (Protamine) 50 mg STK-MED ONCE IV ; Start 07/17/21 at 07:35; Stop 07/18/21 at 13:31; Status DC Heparin Sodium (Porcine) (Heparin Sodium) 10,000 unit STK-MED ONCE .ROUTE ; Start 07/17/21 at 07:35; Stop 07/18/21 at 13:31; Status DC Dexamethasone Sodium Phosphate (Decadron) 4 mg STK-MED ONCE .ROUTE ; Start 07/17/21 at 07:35; Stop 07/18/21 at 13:31; Status DC Ondansetron HCl (Zofran) 4 mg STK-MED ONCE .ROUTE ; Start 07/17/21 at 07:35; Stop 07/18/21 at 13:31; Status DC Epinephrine HCl (EPINEPHrine SYRINGE) 1 mg STK-MED ONCE .ROUTE ; Start 07/17/21 at 07:35; Stop 07/18/21 at 13:31; Status DC Midazolam HCl (Versed) 2 mg STK-MED ONCE .ROUTE ; Start 07/17/21 at 07:37; Stop 07/18/21 at 13:31; Status DC Fentanyl Citrate (Fentanyl 5ml Vial) 250 mcg STK-MED ONCE .ROUTE ; Start 07/17/21 at 07:37; Stop 07/18/21 at 13:31; Status DC Cefazolin Sodium/ Dextrose 50 ml @ As Directed STK-MED ONCE IV ; Start 07/17/21 at 08:51; Stop 07/18/21 at 13:35; Status DC Hydromorphone HCl (Dilaudid) 2 mg STK-MED ONCE .ROUTE ; Start 07/17/21 at 11:54; Stop 07/18/21 at 13:36; Status DC Fentanyl Citrate (Fentanyl 2ml Vial) 100 mcg STK-MED ONCE .ROUTE ; Start 07/17/21 at 11:54; Stop 07/18/21 at 13:36; Status DC Morphine Sulfate (Morphine Sulfate) 2 mg STK-MED ONCE .ROUTE ; Start 07/17/21 at 11:55; Stop 07/18/21 at 13:36; Status DC Cefazolin Sodium/ Dextrose 50 ml @ 100 mls/hr 1X PREOP PRN IV PRIOR TO PROCEDURE Last administered on 07/20/21at 15:45; Start 07/20/21 at 14:00; Stop 07/21/21 at 13:59; Status DC Cefazolin Sodium/ Dextrose 50 ml @ As Directed STK-MED ONCE IV ; Start 07/20/21 at 13:50; Stop 07/20/21 at 13:50; Status DC Propofol (Diprivan) 200 mg STK-MED ONCE IV ; Start 07/20/21 at 14:06; Stop 07/20/21 at 14:07; Status DC Lidocaine HCl (Xylocaine-Mpf 1% 5ml Vial) 5 ml STK-MED ONCE .ROUTE ; Start 07/20/21 at 14:07; Stop 07/20/21 at 14:07; Status DC Fentanyl Citrate (Fentanyl 2ml Vial) 100 mcg STK-MED ONCE .ROUTE ; Start 07/20/21 at 14:07; Stop 07/20/21 at 14:07; Status DC Cellulose (Surgicel Fibrillar 1x2) 1 each STK-MED ONCE .ROUTE Last administered on 07/20/21at 16:07; Start 07/20/21 at 16:04; Stop 07/20/21 at 16:05; Status DC Fentanyl Citrate (Fentanyl 2ml Vial) 25 mcg PRN Q5MIN PRN IVP MILD PAIN 1-3; Start 07/20/21 at 16:15; Stop 07/21/21 at 02:00; Status DC Fentanyl Citrate (Fentanyl 2ml Vial) 50 mcg PRN Q5MIN PRN IVP MODERATE PAIN 4- 6; Start 07/20/21 at 16:15; Stop 07/21/21 at 02:00; Status DC Morphine Sulfate (Morphine Sulfate) 1 mg PRN Q10MIN PRN IVP SEVERE PAIN 7-10; Start 07/20/21 at 16:15; Stop 07/21/21 at 02:00; Status DC Hydromorphone HCl (Dilaudid) 0.5 mg PRN Q10MIN PRN IVP SEVERE PAIN 7-10, 2nd CHOICE; Start 07/20/21 at 16:15; Stop 07/21/21 at 02:00; Status DC Prochlorperazine Edisylate (Compazine) 5 mg PACU PRN PRN IVP NAUSEA, MRX1; S tart 07/20/21 at 16:15; Stop 07/25/21 at 07:58; Status DC Insulin Human Lispro (HumaLOG VIAL for OP,RR ONLY) 0-10 units PRN Q1HR PRN SQ PER PROTOCOL; Start 07/20/21 at 16:15; Stop 07/21/21 at 16:14; Status DC Cefazolin Sodium/ Dextrose 50 ml @ 100 mls/hr Q8HRS IV Last administered on 07/21/21at 05:21; Start 07/20/21 at 22:00; Stop 07/21/21 at 06:29; Status DC Oxycodone/ Acetaminophen (Percocet 5/325) 2 tab PRN Q4HRS PRN PO SEVERE PAIN Last administered on 08/22/21at 20:24; Start 07/20/21 at 16:45 Hydromorphone HCl (Dilaudid) 2 mg STK-MED ONCE .ROUTE ; Start 07/20/21 at 16:50; Stop 07/20/21 at 16:50; Status DC Aspirin (Aspirin Chewable) 81 mg DAILYWBKFT PO Last administered on 08/23/21at 08:04; Start 07/23/21 at 08:00 Heparin Sodium/ Dextrose 250 ml @ 8.789 mls/ hr CONT PRN IV PER PROTOCOL Last administered on 07/25/21at 20:23; Start 07/22/21 at 16:30; Stop 07/26/21 at 13:44; Status DC Heparin Sodium (Porcine) (Heparin Sodium) 2,000 unit PRN Q6HRS PRN IV FOR UFH LEVEL LESS THAN 0.2 Last administered on 07/23/21at 01:17; Start 07/22/21 at 16:30; Stop 07/26/21 at 13:44; Status DC Cefazolin Sodium/ Dextrose 50 ml @ 100 mls/hr 1X PREOP PRN IV PRIOR TO PROCEDURE; Start 07/25/21 at 06:00; Stop 07/25/21 at 18:00; Status DC Cefazolin Sodium 1 gm/Sodium Chloride 500 ml @ 500 mls/hr 1X ONCE IRR ; Start 07/25/21 at 06:00; Stop 07/25/21 at 07:00; Status DC Fentanyl Citrate (Fentanyl 2ml Vial) 25 mcg PRN Q5MIN PRN IVP MILD PAIN 1-3; Start 07/25/21 at 06:00; Stop 07/25/21 at 20:00; Status DC Fentanyl Citrate (Fentanyl 2ml Vial) 50 mcg PRN Q5MIN PRN IVP MODERATE PAIN 4- 6; Start 07/25/21 at 06:00; Stop 07/25/21 at 20:00; Status DC Morphine Sulfate (Morphine Sulfate) 1 mg PRN Q10MIN PRN IVP SEVERE PAIN 7-10; Start 07/25/21 at 06:00; Stop 07/25/21 at 20:00; Status DC Ringer's Solution 1,000 ml @ 30 mls/hr Q24H IV Last administered on 07/25/21at 07:58; Start 07/25/21 at 06:00; Stop 07/25/21 at 17:59; Status DC Hydromorphone HCl (Dilaudid) 0.5 mg PRN Q10MIN PRN IVP SEVERE PAIN 7-10, 2nd CHOICE; Start 07/25/21 at 06:00; Stop 07/25/21 at 20:00; Status DC Prochlorperazine Edisylate (Compazine) 5 mg PACU PRN PRN IVP NAUSEA, MRX1; Start 07/25/21 at 06:00; Stop 07/25/21 at 20:00; Status DC Propofol (Diprivan) 200 mg STK-MED ONCE IV ; Start 07/25/21 at 06:52; Stop 07/25/21 at 06:53; Status DC Fentanyl Citrate (Fentanyl 2ml Vial) 100 mcg STK-MED ONCE .ROUTE ; Start 07/25/21 at 06:53; Stop 07/25/21 at 06:53; Status DC Rocuronium [place] (Zemuron) 50 mg STK-MED ONCE .ROUTE ; Start 07/25/21 at 06:59; Stop 07/25/21 at 06:59; Status DC Ondansetron HCl (Zofran) 4 mg STK-MED ONCE .ROUTE ; Start 07/25/21 at 07:08; Stop 07/25/21 at 07:08; Status DC Dexamethasone Sodium Phosphate (Decadron) 4 mg STK-MED ONCE .ROUTE ; Start 07/25/21 at 07:08; Stop 07/25/21 at 07:08; Status DC Potassium Chloride/Water 100 ml @ 100 mls/hr Q1H IV Last administered on 07/25/21at 13:25; Start 07/25/21 at 08:00; Stop 07/25/21 at 13:59; Status DC Lidocaine HCl (Xylocaine 1% Pf 30ml Vial) 30 ml STK-MED ONCE .ROUTE ; Start 07/25/21 at 07:55; Stop 07/25/21 at 07:56; Status DC Ascorbic Acid (Vitamin C) 500 mg DAILY PO Last administered on 08/23/21at 08:04; Start 07/26/21 at 09:00 Thiamine Mononitrate (Vitamin B-1) 100 mg DAILY PO Last administered on 08/23/21at 08:04; Start 07/26/21 at 09:00 Rivaroxaban (Xarelto) 20 mg DAILYWSUP PO Last administered on 08/22/21at 17:24; Start 07/26/21 at 17:00 Pantoprazole Sodium (Protonix) 40 mg DAILYAC PO Last administered on 08/23/21at 08:04; Start 07/28/21 at 07:30 Nystatin (Nystop) 1 alison BID TP Last administered on 08/22/21at 20:24; Start 08/03/21 at 21:00 Info (Anti-Coagulation Monitoring By Pharmacy) 1 each PRN DAILY PRN MC PER PROTOCOL Last administered on 08/14/21at 10:58; Start 08/05/21 at 12:30 Active Scripts Active No Active Prescriptions or Reported Medications Vitals/I & O Vital Sign - Last 24 Hours 08/22/21 08/22/21 08/22/21 08/22/21 14:56 19:36 19:48 20:24 Temp 97.4 97.7 97.4 97.7 Pulse 93 101 101 Resp 18 16 B/P (MAP) 104/80 (88) 121/75 (90) 121/75 Pulse Ox 97 91 O2 Delivery Room Air Room Air Room Air 08/22/21 08/22/21 08/22/21 08/23/21 20:24 20:54 23:08 03:59 Temp 97.7 97.5 97.7 97.5 Pulse 75 83 Resp 18 18 16 16 B/P (MAP) 105/68 (80) 106/77 (87) Pulse Ox 91 91 93 90 O2 Delivery Room Air Room Air Room Air Room Air 08/23/21 08/23/21 08/23/21 07:00 08:00 08:04 Temp 97.9 97.9 Pulse 85 85 Resp 18 B/P (MAP) 110/71 (84) 110/71 Pulse Ox 94 O2 Delivery Room Air Room Air Intake and Output 08/22/21 08/22/2122 15:00 23:00 07:00 Intake Total 340 ml 600 ml 280 ml Output Total 500 ml 200 ml Balance 340 ml 100 ml 80 ml Justifications for Admission Other Justification COVID-19 positive test (U07.1, COVID-19) with Acute Pneumonia (J12.89, Other viral pneumonia) (If respiratory failure or sepsis present, add as separate assessment) OKSANA BUNN DPHanny Aug 23, 2021 11:06
--- NOTE | 2021-08-23 11:59 | PDOC ---
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 s/p bilateral pop/tibial thrombectomies with patch angioplasty s/p RLE hematoma evacuation Metabolic cephalopathy Probable Covid toes IVORY Lactic acidosis Dysphagia Malnutrition Heel erythema Poor nail care History of Present Illness History of Present Illness 08/23/2021 No acute events overnight. Patient seen and examined bedside. Plan for surgery with vascular surgery on August 29. Continue wound care for now. Osteomyelitis ruled out. Patient's chart, labs, images were reviewed and discussed with RN 08/22/2021 No acute events overnight. Patient seen and examined bedside. Pending vascular surgery evaluation for possible toe amputations. Continue wound care for now. 08/21 Eluate examined at bedside. Clinically stable. Rehab screen. Continue current plan otherwise. 08/20 Eval examined at bedside. No complaints, no distress. Rehab screen tomorrow. 08/19 Evaluated examined at bedside. Resting in bed did not appear in any distress. Continue therapy modalities 08/18 Evaluated examined at bedside. No major complaints. No distress. Screen for rehab on Saturday. 08/17 Evaluated examined at bedside. Resting in bed did not appear in any distress. Continue therapy for modalities 08/16/2021 Patient seen and examined Discussed with RN Chart reviewed He is resting with no apparent distress 08/15/21 Patient seen and examined Jesica removed yesterday, incision site looks good IV came out, will leave out unless need arises Discussed w RN Chart reviewed 08/14/2021 Patient seen and examined Discussed with RN Chart reviewed I called the vascular surgery nurse practitioner to see if they could take the jesica out They said they would come later today to check on that (appreciate their help) 08/13/2019 Patient seen and examined He is up in the chair His nurse states he was able to walk to the bathroom twice His feet both still look necrotic Discussed with RN Chart reviewed 08/12/2021 Patient seen and examined Discussed with RN Chart reviewed Left foot still looks necrotic across the toes and the heel The right foot looks slightly better with slight healing of the heel but the toes are still quite necrotic 08/11/2021 Patient seen and examined Discussed with RN Chart reviewed Discussed with case management He took 8 steps yesterday 08/10/2021 Patient seen and examined exam discussed with case management Discussed with RN Chart reviewed No change clinically still wearing lower extremity protectors the toes are necrotic as are the heels 08/09: Seen sitting in chair today. He is wearing his postoperative shoes feels he is minimally stronger. Short of breath on exertion. 08/08: Seen and examined bedside. He is awaiting therapy evaluation today. Foot pain is well controlled. No worsening erythema or fevers but does have some drainage on the lateral left heel wound. No shortness of breath or chest pain. 08/04/2021 Patient seen and examined He is resting with no apparent distress Discussed with case management Chart reviewed Vascular surgery saw him again yesterday and is hoping to only have to do TMA in the future instead of BKA if we let his feett tissues try to recover for a few weeks Appreciate vascular input. 08/03/2021 Patient seen and examined Laying comfortably in bed with flat affect Bilateral heel protectors present; Dry gangrene present on bilateral toes and heels; Discussed with the wound care nurse Discussed with patient the need for vascular surgery input regarding foot surgery and potential bilateral BKA Chart reviewed Discussed with RN 08/02/2021 Patient seen and examined Discussed with RN Chart reviewed He is resting with no apparent distress 08/01/2021 Patient seen and examined He seems depressed and very weak He has heel protectors on both the toes that are exposed are extremely gangrenous and black and demarcated Discussed with the wound care nurse He explains that vascular surgery is awaiting the complete demarcation to finish up and then they will consider surgery at that time Chart reviewed Discussed with RN 07/31/2021 Patient seen and examined Discussed plan Chart reviewed Still feeling weak Mr Lambert is a 60-year-old male that presented 06/29/2021 via [facility] with decreased level of consciousness. Most of the history was obtained via EMS and patient's friend Reese [phone], who states that patient has been sick since about June 22 per Reese, he states that they both had cough cold headache sinus type pain. Per Reese's report patient is okay during the day and very alert and orientated and at night he has a decreased alertness. Patient is unable to help with exam when asked questions he does deny any past medical history, surgeries, or any other health conditions. Reese who is his roommate collaborates any information gotten from the patient. Accu-Chek per EMS was 250, room air sat in the room was 88 to 90%. 07/07: not much improved, about the same. cont current. PULM following. we have no clinimix, cont D5 fluid, 07/08: more alert, can try ST again, if able to sit up, still very weak 07/09: much more alert, bedside swallow of water ok, sits upright, much stronger, will try clears if able, ST to follow. toes are worsening, now black, hannah consult podiatry to follow, 07/10: More alert. Working with speech and swallowing today. Off O2. Less con fused. Bilateral toe ulcers assessed by podiatry today. 07/11: More alert, eating. Arterial Doppler was left popliteal and severe distal disease bilaterally. Still has a little bit of a cough. Less confused today. 07/12: Eating reasonably well. Tentative plans for angiogram for consideration of limb salvage bilateral feet tomorrow. Discussed with cardiology. He will need significant follow-up care likely eventual amputations. 07/13: N.p.o. for angiogram today with bilateral SFA occlusive disease and left p opliteal disease with left posterior tibial artery with some flow otherwise occlusive disease per cardiology. Discussed vascular surgery consultation for consideration of definitive revascularization with likely bilateral transmetatarsal amputations. Still with a little bit of a cough. Shortness of breath 07/14: Seen bedside. Having some pain in his bilateral extremities. Shortness of breath improved still with little bit of cough. Eating again. Amenable to revascularization and likely surgical debridement next week. Increasing thromboprophylaxis 07/15: Seen bedside. Not hypoxic. Cough is improving. He feels he is mental st atus is improved but he is definitely still mentating slowly. Complains of foot pain. He is contemplating surgical options but is okay with what ever the surgeons to choose for his likely lower extremity bypass tentatively planned for 07/17/202107/16: Bilateral foot pain still with cough but improving. Still is contemplating surgical options. 07/17: Patient off floor for surgery today. Chart evaluated. s/p bilateral pop/tibial thrombectomies with patch angioplasty. s/p RLE hematoma evacuation 07/18: Patient did and examined at bedside. He is postop day 1 from bilateral thrombectomies yesterday. Looks like he may need more surgery prior to discharge. Continue heparin drip. Suspect leukocytosis today secondary to surgery. Continue current. 07/19: Patient evaluated examined at bedside. He was working with physical therapy when seen. Continuing heparin drip. Recheck CBC today. Cardiology following vascular following. Will likely need further surgery prior to discharge. 07/20: Seen at bedside. Having RLE pain and had Hgb drop overnight. Will transfuse. Stop heparin drip for now. Seen by vascular, hematoma evacuation ordered. serial Hgb. 07/21: Patient evaluated examined at bedside. Hemoglobin improved up to 8.1 today. Underwent hematoma evacuation yesterday. Planning for further intervention next week. 07/22: Examine and evaluated at bedside. Resting in bed no major complaints. Hemoglobin stable. Appreciate Cardiology resuming heparin. Further intervention next week. 07/23: Seen at bedside no motor complaints. Hemoglobin still stable. No major clinical changes for today. Intervention this coming week. 07/24: Seen bedside. Has good appetite no cough shortness of breath or chest pain. Left heel with more gangrenous changes left feet. Plan for n.p.o. after midnight 07/25: Seen bedside. N.p.o. for bilateral foot debridement today. K3. Glucose low 100s. Has a friend visiting today. No chest pain or shortness of breath. Pain controlled. 2/2: Changes in the off heparin drip to Xarelto. No significant anticoagulation for 3 months then can start progressive ambulation with physical therapy with postop shoe per vascular surgery recommendations. No shortness of breath or chest pain today just very weak. 2/3: Up to chair today, has more bilateral foot pain, now wearing post -op shoes. No SOB or cough. He is asking to get back into bed. Encouraged to continue trying to get on his feet. 2/4: In bed. Foot pain is improved from yesterday. No shortness of breath no cough. Still very weak even weak eating today. 25: Seen in bed. No foot pain today. No shortness of breath or cough. Still weak eating well. Not out of bed today. Glucose low 100s. 26: Seen in bed. Pain-free eating breakfast in bed. Still feeling weak has been up on his foot the last day. Glucose well controlled. Vitals/I&O Vitals/I&O: Vital Signs Date Time Temp Pulse Resp B/P (MAP) Pulse Ox O2 Delivery O2 Flow Rate FiO2 08/23/21 11:00 98.1 97 18 103/66 (78) 95 Room Air 98.1 I & O 08/22/21 08/22/21 08/23/21 15:00 23:00 07:00 Intake Total 340 ml 600 ml 280 ml Output Total 500 ml 200 ml Balance 340 ml 100 ml 80 ml Physical Exam Physical Exam: lethargic and weak General: Alert, Oriented X3, Cooperative, No acute distress, Other (Resting) Heart: Regular rate Lungs: Clear Abdomen: Normal bowel sounds Extremities: Other (Severely black toes please see the pictures) Skin: Other (No further hematoma accumulation) Labs Labs: Laboratory Tests Test 08/22/21 16:32 08/22/21 20:43 08/23/21 03:30 08/23/21 07:44 Glucose (Fingerstick) 123 mg/dL (70-99) 136 mg/dL (70-99) 94 mg/dL (70-99) White Blood Count 8.4 x10^3/uL (4.0-11.0) Red Blood Count 4.04 x10^6/uL (4.30-5.70) Hemoglobin 11.5 g/dL (13.0-17.5) Hematocrit 36.6 % (39.0-53.0) Mean Corpuscular Volume 90 fL (79-100) Mean Corpuscular Hemoglobin 28 pg (25-35) Mean Corpuscular Hemoglobin Concent 31 g/dL (31-37) Red Cell Distribution Width 16.1 % (11.5-14.5) Platelet Count 292 x10^3/uL (140-400) Neutrophils (%) (Auto) 44 % (31-73) Lymphocytes (%) (Auto) 37 % (24-48) Monocytes (%) (Auto) 11 % (0-9) Eosinophils (%) (Auto) 7 % (0-3) Basophils (%) (Auto) 2 % (0-3) Neutrophils # (Auto) 3.7 x10^3/uL (1.8-7.7) Lymphocytes # (Auto) 3.1 x10^3/uL (1.0-4.8) Monocytes # (Auto) 0.9 x10^3/uL (0.0-1.1) Eosinophils # (Auto) 0.6 x10^3/uL (0.0-0.7) Basophils # (Auto) 0.1 x10^3/uL (0.0-0.2) Assessment and Plan Assessmemt and Plan Problems Medical Problems: (1) Dehydration Status: Acute (2) Mental status alteration Status: Acute (3) Pneumonia Status: Acute Comment Review of Relevant I have reviewed the following items amanda (where applicable) has been applied. Justifications for Admission Other Justification COVID-19 positive test (U07.1, COVID-19) with Acute Pneumonia (J12.89, Other viral pneumonia) (If respiratory failure or sepsis present, add as separate assessment) BRIANA MOHR MD Aug 23, 2021 11:59
[2021-08-23 15:00] VITALS: BP 119/72
[2021-08-23] MEDS: oxyCODONE/APAP 5/325 1 TAB TABLET PO PRN (15:51)
--- NOTE | 2021-08-23 16:45 | NUR ---
pt transferred to 410, report called in from Mirna SANTOS. Care assumed.
[2021-08-23] MEDS: RIVAROXABAN 10 MG TABLET. PO SCH (18:17)
[2021-08-23 19:00] VITALS: BP 119/72
[2021-08-23] MEDS: ATORVASTATIN CALCIUM 20 MG TABLET PO SCH (21:41)
[2021-08-23 23:00] VITALS: BP 110/68
[2021-08-24 03:00] VITALS: BP 93/58
[2021-08-24] MEDS: PANTOPRAZOLE 40 MG TABLET.DR. PO SCH (06:01)
[2021-08-24 07:00] VITALS: BP 117/76
[2021-08-24] MEDS: INSULIN LISPRO 300 UNITS/3 ML VIAL. SQ SCH ×3 (08:00→17:00)
[2021-08-24] MEDS: ASPIRIN CHEWABLE 81 MG TABLET. PO SCH (09:19)
[2021-08-24] MEDS: ASCORBIC ACID 500 MG TABLET PO SCH (09:19)
[2021-08-24] MEDS: METOPROLOL TART IMMED RELEASE 25 MG TABLET. PO SCH ×2 (09:19→20:20)
[2021-08-24] MEDS: THIAMINE 100 MG TABLET. PO SCH (09:19)
[2021-08-24] MEDS: ZINC SULFATE 220 MG CAPSULE. PO SCH (09:19)
[2021-08-24] MEDS: NYSTATIN TOPICAL POWDER 15GM BOTTLE. TP SCH ×2 (09:20→21:00)
--- NOTE | 2021-08-24 10:40 | NUR ---
SW following. Discussed with RN, surgery planned for 08/29/21. SW will continue to follow.
[2021-08-24 11:00] VITALS: BP 113/74
--- NOTE | 2021-08-24 13:56 | NUR ---
Wound Care Wound Type/Assessment: Pt seen for wound care follow up for multiple wounds, see wound assessments. Pt's toes on bilateral feet are black and necrotic with some purple discoloration in the periwound there is more drainage noted today in between the toes, bilateral heels with mostly necrotic/eschar covering, but have now softened as there was an exuderm in place on bilateral heels upon this wound care assessment. Patient does say he has some sensation to bilateral feet. Pt's bilateral buttocks remains closed. All wounds cleansed and assessed. Treatment Recommendations/Plan: Continue painting toes and heels with betadine and weave Aquacel AG strips between toes for drainage, Heel medix or rooke boots to BLE while in bed at all times or post op shoes while up to chair or with PT. calazime to buttocks for prevention as well as Nystatin groins for prevention. Calazime and dressings to BLE applied and patient tolerated well. Education provided: to pt re: Patient educated on wound care and dressing changes and PU prevention. Offloading surface/device: Patient requesting heel medix instead of the Rooke boots at this time. Heel medix applied. Recommended Referrals/Tests: vascular and wound care following, surgery with vascular scheduled for Saturday. Discharge Recommendations for dressings: Dressing change instructions left in room. No other wounds noted. Bed lowered and call light in reach. Wound care will follow up on 08/31/21.
--- NOTE | 2021-08-24 14:21 | PDOC ---
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 s/p bilateral pop/tibial thrombectomies with patch angioplasty s/p RLE hematoma evacuation Metabolic cephalopathy Probable Covid toes IVORY Lactic acidosis Dysphagia Malnutrition Heel erythema Poor nail care History of Present Illness History of Present Illness 08/24: Seen bedside. Has been working with therapy feels is getting stronger. He tells me he thinks he is getting surgery tentatively on 08/29/2021 and will have "most of my toes cut off". 08/23: No acute events overnight. Patient seen and examined bedside. Plan for surgery with vascular surgery on August 29. Continue wound care for now. Osteomyelitis ruled out. Patient's chart, labs, images were reviewed and discussed with RN 08/22: No acute events overnight. Patient seen and examined bedside. Pending vascular surgery evaluation for possible toe amputations. Continue wound care for now. 08/21: Examined at bedside. Clinically stable. Rehab screen. Continue current plan otherwise. 08/20: Eval examined at bedside. No complaints, no distress. Rehab screen tomorrow. 08/19: Evaluated examined at bedside. Resting in bed did not appear in any distress. Continue therapy modalities 08/18: Evaluated examined at bedside. No major complaints. No distress. Screen for rehab on Saturday. 08/17: Evaluated examined at bedside. Resting in bed did not appear in any distress. Continue therapy for modalities 08/16: Patient seen and examined. He is resting with no apparent distress 08/15: Patient seen and examined. [place] removed yesterday, incision site looks good 08/14/2021 Patient seen and examined Discussed with RN Chart reviewed I called the vascular surgery nurse practitioner to see if they could take the janet out They said they would come later today to check on that (appreciate their help) 08/13/2019 Patient seen and examined He is up in the chair His nurse states he was able to walk to the bathroom twice His feet both still look necrotic Discussed with RN Chart reviewed 08/12/2021 Patient seen and examined Discussed with RN Chart reviewed Left foot still looks necrotic across the toes and the heel The right foot looks slightly better with slight healing of the heel but the toes are still quite necrotic 08/11/2021 Patient seen and examined Discussed with RN Chart reviewed Discussed with case management He took 8 steps yesterday 08/10/2021 Patient seen and examined exam discussed with case management Discussed with RN Chart reviewed No change clinically still wearing lower extremity protectors the toes are necrotic as are the heels 08/09: Seen sitting in chair today. He is wearing his postoperative shoes feels he is minimally stronger. Short of breath on exertion. 08/08: Seen and examined bedside. He is awaiting therapy evaluation today. Foot pain is well controlled. No worsening erythema or fevers but does have some drainage on the lateral left heel wound. No shortness of breath or chest pain. 08/04/2021 Patient seen and examined He is resting with no apparent distress Discussed with case management Chart reviewed Vascular surgery saw him again yesterday and is hoping to only have to do TMA in the future instead of BKA if we let his feett tissues try to recover for a few weeks Appreciate vascular input. 08/03/2021 Patient seen and examined Laying comfortably in bed with flat affect Bilateral heel protectors present; Dry gangrene present on bilateral toes and he els; Discussed with the wound care nurse Discussed with patient the need for vascular surgery input regarding foot surgery and potential bilateral BKA Chart reviewed Discussed with RN 08/02/2021 Patient seen and examined Discussed with RN Chart reviewed He is resting with no apparent distress 08/01/2021 Patient seen and examined He seems depressed and very weak He has heel protectors on both the toes that are exposed are extremely gangrenous and black and demarcated Discussed with the wound care nurse He explains that vascular surgery is awaiting the complete demarcation to finish up and then they will consider surgery at that time Chart reviewed Discussed with RN 07/31/2021 Patient seen and examined Discussed plan Chart reviewed Still feeling weak Mr Lambert is a 60-year-old male that presented 06/29/2021 via [facility] with decreased level of consciousness. Most of the history was obtained via EMS and patient's friend Reese [phone], who states that patient has been sick since about June 22 per Reese, he states that they both had cough cold headache sinus type pain. Per Reese's report patient is okay during the day and very alert and orientated and at night he has a decreased alertness. Patient is unable to help with exam when asked questions he does deny any past medical history, surgeries, or any other health conditions. Don who is his roommate collaborates any information gotten from the patient. Accu-Chek per EMS was 250, room air sat in the room was 88 to 90%. 07/07: not much improved, about the same. cont current. PULM following. we have no clinimix, cont D5 fluid, 07/08: more alert, can try ST again, if able to sit up, still very weak 07/09: much more alert, bedside swallow of water ok, sits upright, much stronger, will try clears if able, ST to follow. toes are worsening, now black, hannah consult podiatry to follow, 07/10: More alert. Working with speech and swallowing today. Off O2. Less confused. Bilateral toe ulcers assessed by podiatry today. 07/11: More alert, eating. Arterial Doppler was left popliteal and severe distal disease bilaterally. Still has a little bit of a cough. Less confused today. 07/12: Eating reasonably well. Tentative plans for angiogram for consideration of limb salvage bilateral feet tomorrow. Discussed with cardiology. He will need significant follow-up care likely eventual amputations. 07/13: N.p.o. for angiogram today with bilateral SFA occlusive disease and left popliteal disease with left posterior tibial artery with some flow otherwise occlusive disease per cardiology. Discussed vascular surgery consultation for consideration of definitive revascularization with likely bilateral transmetatarsal amputations. Still with a little bit of a cough. Shortness of breath 07/14: Seen bedside. Having some pain in his bilateral extremities. Shortness of breath improved still with little bit of cough. Eating again. Amenable to revascularization and likely surgical debridement next week. Increasing thromboprophylaxis 07/15: Seen bedside. Not hypoxic. Cough is improving. He feels he is mental status is improved but he is definitely still mentating slowly. Complains of foot pain. He is contemplating surgical options but is okay with what ever the surgeons to choose for his likely lower extremity bypass tentatively planned for 07/17/202107/16: Bilateral foot pain still with cough but improving. Still is contemplating surgical options. 07/17: Patient off floor for surgery today. Chart evaluated. s/p bilateral pop/tibial thrombectomies with patch angioplasty. s/p RLE hematoma evacuation 07/18: Patient did and examined at bedside. He is postop day 1 from bilateral thrombectomies yesterday. Looks like he may need more surgery prior to discharge. Continue heparin drip. Suspect leukocytosis today secondary to surgery. Continue current. 07/19: Patient evaluated examined at bedside. He was working with physical therapy when seen. Continuing heparin drip. Recheck CBC today. Cardiology following vascular following. Will likely need further surgery prior to discharge. 07/20: Seen at bedside. Having RLE pain and had Hgb drop overnight. Will transfuse. Stop heparin drip for now. Seen by vascular, hematoma evacuation ordered. serial Hgb. 07/21: Patient evaluated examined at bedside. Hemoglobin improved up to 8.1 today. Underwent hematoma evacuation yesterday. Planning for further intervention next week. 07/22: Examine and evaluated at bedside. Resting in bed no major complaints. Hemoglobin stable. Appreciate Cardiology resuming heparin. Further intervention next week. 07/23: Seen at bedside no motor complaints. Hemoglobin still stable. No major clinical changes for today. Intervention this coming week. 07/24: Seen bedside. Has good appetite no cough shortness of breath or chest pain. Left heel with more gangrenous changes left feet. Plan for n.p.o. after midnight 07/25: Seen bedside. N.p.o. for bilateral foot debridement today. K3. Glucose low 100s. Has a friend visiting today. No chest pain or shortness of breath. Pain controlled. 2/2: Changes in the off heparin drip to Xarelto. No significant anticoagulation for 3 months then can start progressive ambulation with physical therapy with postop shoe per vascular surgery recommendations. No shortness of breath or chest pain today just very weak. 2/3: Up to chair today, has more bilateral foot pain, now wearing post -op shoes. No SOB or cough. He is asking to get back into bed. Encouraged to continue trying to get on his feet. 2/4: In bed. Foot pain is improved from yesterday. No shortness of breath no cough. Still very weak even weak eating today. 25: Seen in bed. No foot pain today. No shortness of breath or cough. Still weak eating well. Not out of bed today. Glucose low 100s. 2/6: Seen in bed. Pain-free eating breakfast in bed. Still feeling weak has been up on his foot the last day. Glucose well controlled. Vitals/I&O Vitals/I&O: Vital Signs Date Time Temp Pulse Resp B/P (MAP) Pulse Ox O2 Delivery O2 Flow Rate FiO2 08/24/21 11:00 97.5 94 18 113/74 (87) 95 Room Air 97.5 08/23/21 16:41 96.0 I & O 08/23/21 08/23/21 08/24/21 15:00 23:00 07:00 Intake Total 350 ml Balance 350 ml Physical Exam Physical Exam: lethargic and weak General: Alert, Oriented X3, Cooperative, No acute distress, Other (Resting) Heart: Regular rate Lungs: Clear Abdomen: Normal bowel sounds Extremities: Other (Severely black toes please see the pictures) Skin: Other (No further hematoma accumulation) Labs Labs: Laboratory Tests Test 08/23/21 17:11 08/23/21 21:42 08/24/21 08:24 08/24/21 11:01 Glucose (Fingerstick) 136 mg/dL (70-99) 132 mg/dL (70-99) 109 mg/dL (70-99) 137 mg/dL (70-99) Assessment and Plan Assessmemt and Plan Problems Medical Problems: (1) Dehydration Status: Acute (2) Mental status alteration Status: Acute (3) Pneumonia Status: Acute Comment Review of Relevant I have reviewed the following items amanda (where applicable) has been applied. Justifications for Admission Other Justification COVID-19 positive test (U07.1, COVID-19) with Acute Pneumonia (J12.89, Other viral pneumonia) (If respiratory failure or sepsis present, add as separate assessment) SIMONE ARGUELLO MD Aug 24, 2021 14:21
[2021-08-24 15:00] VITALS: BP 116/76
[2021-08-24] MEDS: RIVAROXABAN 10 MG TABLET. PO SCH (18:03)
[2021-08-24 19:00] VITALS: BP 108/73
[2021-08-24] MEDS: oxyCODONE/APAP 5/325 1 TAB TABLET PO PRN (19:29)
[2021-08-24] MEDS: ATORVASTATIN CALCIUM 20 MG TABLET PO SCH (20:19)
[2021-08-24 23:00] VITALS: BP 108/71
[2021-08-25 03:00] VITALS: BP 109/71
[2021-08-25 07:00] VITALS: BP 130/79
[2021-08-25] MEDS: INSULIN LISPRO 300 UNITS/3 ML VIAL. SQ SCH ×3 (08:00→17:00)
[2021-08-25] MEDS: NYSTATIN TOPICAL POWDER 15GM BOTTLE. TP SCH ×2 (09:00→21:00)
[2021-08-25] MEDS: THIAMINE 100 MG TABLET. PO SCH (09:15)
[2021-08-25] MEDS: ASCORBIC ACID 500 MG TABLET PO SCH (09:15)
[2021-08-25] MEDS: ZINC SULFATE 220 MG CAPSULE. PO SCH (09:15)
[2021-08-25] MEDS: ASPIRIN CHEWABLE 81 MG TABLET. PO SCH (09:15)
[2021-08-25] MEDS: PANTOPRAZOLE 40 MG TABLET.DR. PO SCH (09:15)
[2021-08-25] MEDS: METOPROLOL TART IMMED RELEASE 25 MG TABLET. PO SCH ×2 (09:16→21:12)
--- NOTE | 2021-08-25 10:48 | NUR ---
SW following. Discussed with RN, pt scheduled for surgery on 08/29/21. SW will continue to follow.
[2021-08-25 11:00] VITALS: BP 118/76
[2021-08-25] MEDS: oxyCODONE/APAP 5/325 1 TAB TABLET PO PRN ×2 (12:23→21:15)
--- NOTE | 2021-08-25 13:50 | PDOC ---
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 s/p bilateral pop/tibial thrombectomies with patch angioplasty s/p RLE hematoma evacuation Metabolic cephalopathy Probable Covid toes IVORY Lactic acidosis Dysphagia Malnutrition Heel erythema Poor nail care History of Present Illness History of Present Illness 08/25: Seen bedside. Able to get up. Pain is well controlled. No chest pain or shortness of breath. Continue therapy modalities. Discussed with RN. 08/24: Seen bedside. Has been working with therapy feels is getting stronger. He tells me he thinks he is getting surgery tentatively on 08/29/2021 and will have "most of my toes cut off". 08/23: No acute events overnight. Patient seen and examined bedside. Plan for surgery with vascular surgery on August 29. Continue wound care for now. Osteomyelitis ruled out. Patient's chart, labs, images were reviewed and discus sed with RN 08/22: No acute events overnight. Patient seen and examined bedside. Pending vascular surgery evaluation for possible toe amputations. Continue wound care for now. 08/21: Examined at bedside. Clinically stable. Rehab screen. Continue current plan otherwise. 08/20: Eval examined at bedside. No complaints, no distress. Rehab screen tomorrow. 08/19: Evaluated examined at bedside. Resting in bed did not appear in any distress. Continue therapy modalities 08/18: Evaluated examined at bedside. No major complaints. No distress. Screen for rehab on Saturday. 08/17: Evaluated examined at bedside. Resting in bed did not appear in any distress. Continue therapy for modalities 08/16: Patient seen and examined. He is resting with no apparent distress 08/15: Patient seen and examined. [place] removed yesterday, incision site looks good 08/14/2021 Patient seen and examined Discussed with RN Chart reviewed I called the vascular surgery nurse practitioner to see if they could take the jesica out They said they would come later today to check on that (appreciate their help) 08/13/2019 Patient seen and examined He is up in the chair His nurse states he was able to walk to the bathroom twice His feet both still look necrotic Discussed with RN Chart reviewed 08/12/2021 Patient seen and examined Discussed with RN Chart reviewed Left foot still looks necrotic across the toes and the heel The right foot looks slightly better with slight healing of the heel but the toes are still quite necrotic 08/11/2021 Patient seen and examined Discussed with RN Chart reviewed Discussed with case management He took 8 steps yesterday 08/10/2021 Patient seen and examined exam discussed with case management Discussed with RN Chart reviewed No change clinically still wearing lower extremity protectors the toes are necrotic as are the heels 08/09: Seen sitting in chair today. He is wearing his postoperative shoes feels he is minimally stronger. Short of breath on exertion. 08/08: Seen and examined bedside. He is awaiting therapy evaluation today. Foot pain is well controlled. No worsening erythema or fevers but does have some drainage on the lateral left heel wound. No shortness of breath or chest pain. 08/04/2021 Patient seen and examined He is resting with no apparent distress Discussed with case management Chart reviewed Vascular surgery saw him again yesterday and is hoping to only have to do TMA in the future instead of BKA if we let his feett tissues try to recover for a few weeks Appreciate vascular input. 08/03/2021 Patient seen and examined Laying comfortably in bed with flat affect Bilateral heel protectors present; Dry gangrene present on bilateral toes and heels; Discussed with the wound care nurse Discussed with patient the need for vascular surgery input regarding foot surgery and potential bilateral BKA Chart reviewed Discussed with RN 08/02/2021 Patient seen and examined Discussed with RN Chart reviewed He is resting with no apparent distress 08/01/2021 Patient seen and examined He seems depressed and very weak He has heel protectors on both the toes that are exposed are extremely gangrenous and black and demarcated Discussed with the wound care nurse He explains that vascular surgery is awaiting the complete demarcation to finish up and then they will consider surgery at that time Chart reviewed Discussed with RN 07/31/2021 Patient seen and examined Discussed plan Chart reviewed Still feeling weak Mr Lambert is a 60-year-old male that presented 06/29/2021 via [facility] with decreased level of consciousness. Most of the history was obtained via EMS and patient's friend Reese [phone], who states that patient has been sick since about June 22 per Reese, he states that they both had cough cold headache sinus type pain. Per Don's report patient is okay during the day and very alert and orientated and at night he has a decreased alertness. Patient is unable to help with exam when asked questions he does deny any past medical history, surgeries, or any other health conditions. Reese who is his roommate collaborates any information gotten from the patient. Accu-Chek per EMS was 250, room air sat in the room was 88 to 90%. 07/07: not much improved, about the same. cont current. PULM following. we have no clinimix, cont D5 fluid, 07/08: more alert, can try ST again, if able to sit up, still very weak 07/09: much more alert, bedside swallow of water ok, sits upright, much stronger, will try clears if able, ST to follow. toes are worsening, now black, hannah consult podiatry to follow, 07/10: More alert. Working with speech and swallowing today. Off O2. Less confused. Bilateral toe ulcers assessed by podiatry today. 07/11: More alert, eating. Arterial Doppler was left popliteal and severe distal disease bilaterally. Still has a little bit of a cough. Less confused today. 07/12: Eating reasonably well. Tentative plans for angiogram for consideration of limb salvage bilateral feet tomorrow. Discussed with cardiology. He will need significant follow-up care likely eventual amputations. 07/13: N.p.o. for angiogram today with bilateral SFA occlusive disease and left popliteal disease with left posterior tibial artery with some flow otherwise occlusive disease per cardiology. Discussed vascular surgery consultation for consideration of definitive revascularization with likely bilateral transmetatarsal amputations. Still with a little bit of a cough. Shortness of breath 07/14: Seen bedside. Having some pain in his bilateral extremities. Shortness of breath improved still with little bit of cough. Eating again. Amenable to revascularization and likely surgical debridement next week. Increasing thromboprophylaxis 07/15: Seen bedside. Not hypoxic. Cough is improving. He feels he is mental status is improved but he is definitely still mentating slowly. Complains of foot pain. He is contemplating surgical options but is okay with what ever the surgeons to choose for his likely lower extremity bypass tentatively planned for 07/17/202107/16: Bilateral foot pain still with cough but improving. Still is contemplating surgical options. 07/17: Patient off floor for surgery today. Chart evaluated. s/p bilateral pop/tibial thrombectomies with patch angioplasty. s/p RLE hematoma evacuation 07/18: Patient did and examined at bedside. He is postop day 1 from bilateral thrombectomies yesterday. Looks like he may need more surgery prior to discharge. Continue heparin drip. Suspect leukocytosis today secondary to surgery. Continue current. 07/19: Patient evaluated examined at bedside. He was working with physical therapy when seen. Continuing heparin drip. Recheck CBC today. Cardiology following vascular following. Will likely need further surgery prior to discharge. 07/20: Seen at bedside. Having RLE pain and had Hgb drop overnight. Will transfuse. Stop heparin drip for now. Seen by vascular, hematoma evacuation ordered. serial Hgb. 07/21: Patient evaluated examined at bedside. Hemoglobin improved up to 8.1 today. Underwent hematoma evacuation yesterday. Planning for further intervention next week. 07/22: Examine and evaluated at bedside. Resting in bed no major complaints. Hemoglobin stable. Appreciate Cardiology resuming heparin. Further intervention next week. 07/23: Seen at bedside no motor complaints. Hemoglobin still stable. No major c linical changes for today. Intervention this coming week. 07/24: Seen bedside. Has good appetite no cough shortness of breath or chest pain. Left heel with more gangrenous changes left feet. Plan for n.p.o. after midnight 07/25: Seen bedside. N.p.o. for bilateral foot debridement today. K3. Glucose low 100s. Has a friend visiting today. No chest pain or shortness of breath. Pain controlled. 2/2: Changes in the off heparin drip to Xarelto. No significant anticoagulation for 3 months then can start progressive ambulation with physical therapy with postop shoe per vascular surgery recommendations. No shortness of breath or patrice st pain today just very weak. 2/3: Up to chair today, has more bilateral foot pain, now wearing post -op shoes. No SOB or cough. He is asking to get back into bed. Encouraged to continue trying to get on his feet. 2/4: In bed. Foot pain is improved from yesterday. No shortness of breath no cough. Still very weak even weak eating today. 25: Seen in bed. No foot pain today. No shortness of breath or cough. Still weak eating well. Not out of bed today. Glucose low 100s. 07/30: Seen in bed. Pain-free eating breakfast in bed. Still feeling weak has been up on his foot the last day. Glucose well controlled. Vitals/I&O Vitals/I&O: Vital Signs Date Time Temp Pulse Resp B/P (MAP) Pulse Ox O2 Delivery O2 Flow Rate FiO2 08/25/21 12:53 Room Air 08/25/21 11:00 97.7 118 18 118/76 (90) 95 97.7 08/24/21 19:59 96.0 I & O 08/24/21 08/24/21 08/25/21 15:00 23:00 07:00 Intake Total 100 ml 100 ml 0 ml Output Total 300 ml Balance 100 ml -200 ml 0 ml Physical Exam Physical Exam: lethargic and weak General: Alert, Oriented X3, Cooperative, No acute distress, Other (Resting) Heart: Regular rate Lungs: Clear Abdomen: Normal bowel sounds Extremities: Other (Severely black toes please see the pictures) Skin: Other (No further hematoma accumulation) Labs Labs: Laboratory Tests Test 08/24/21 16:45 08/24/21 21:36 08/25/21 07:49 08/25/21 12:18 Glucose (Fingerstick) 118 mg/dL (70-99) 121 mg/dL (70-99) 102 mg/dL (70-99) 149 mg/dL (70-99) Assessment and Plan Assessmemt and Plan Problems Medical Problems: (1) Dehydration Status: Acute (2) Mental status alteration Status: Acute (3) Pneumonia Status: Acute Comment Review of Relevant I have reviewed the following items amanda (where applicable) has been applied. Justifications for Admission Other Justification COVID-19 positive test (U07.1, COVID-19) with Acute Pneumonia (J12.89, Other viral pneumonia) (If respiratory failure or sepsis present, add as separate assessment) SIMONE ARGUELLO MD Aug 25, 2021 13:50
[2021-08-25 15:00] VITALS: BP 129/83
[2021-08-25] MEDS: RIVAROXABAN 10 MG TABLET. PO SCH (17:31)
[2021-08-25 19:00] VITALS: BP 105/73
[2021-08-25] MEDS: ATORVASTATIN CALCIUM 20 MG TABLET PO SCH (21:12)
[2021-08-25 23:00] VITALS: BP 122/77
[2021-08-26 03:00] VITALS: BP 101/66
[2021-08-26 07:00] VITALS: BP 110/77
[2021-08-26] MEDS: INSULIN LISPRO 300 UNITS/3 ML VIAL. SQ SCH ×3 (08:00→17:00)
[2021-08-26] MEDS: ASPIRIN CHEWABLE 81 MG TABLET. PO SCH (09:00)
[2021-08-26] MEDS: NYSTATIN TOPICAL POWDER 15GM BOTTLE. TP SCH ×2 (09:00→20:46)
[2021-08-26] MEDS: METOPROLOL TART IMMED RELEASE 25 MG TABLET. PO SCH ×2 (09:01→20:36)
[2021-08-26] MEDS: THIAMINE 100 MG TABLET. PO SCH (09:01)
[2021-08-26] MEDS: PANTOPRAZOLE 40 MG TABLET.DR. PO SCH (09:01)
[2021-08-26] MEDS: ASCORBIC ACID 500 MG TABLET PO SCH (09:01)
[2021-08-26] MEDS: ZINC SULFATE 220 MG CAPSULE. PO SCH (09:01)
[2021-08-26 11:00] VITALS: BP 112/70
[2021-08-26] MEDS: oxyCODONE/APAP 5/325 1 TAB TABLET PO PRN ×2 (14:52→20:37)
[2021-08-26 15:00] VITALS: BP 115/73
[2021-08-26] MEDS: RIVAROXABAN 10 MG TABLET. PO SCH (17:41)
[2021-08-26 19:00] VITALS: BP 104/70
--- NOTE | 2021-08-26 19:17 | PDOC ---
GENERAL General: Patient examined chart reviewed today's hospital day 59 for this patient with C OVID-19 just preceding admission resulting in occlusive vascular disease of both legs which were salvaged due to emergency vascular surgery however all of his toes are gangrenous and he will require a bilateral transmetatarsal amputation. The timing of the amputation is unclear the patient has improved clinically and it sounds like that may happen soon. I met this patient last month and he has improved since that time and strength and function. He is in decent spirits tonight has no new complaints. Appreciate subspecialty support. Problems: (1) Gangrene of foot (2) History of COVID-19 (3) Peripheral vascular occlusive disease VITAL SIGNS Vital Signs/I&O: Vital Signs Date Time Temp Pulse Resp B/P (MAP) Pulse Ox O2 Delivery O2 Flow Rate FiO2 08/26/21 15:22 Room Air 08/26/21 15:00 98.6 94 14 115/73 (87) 94 98.6 08/25/21 19:00 2.0 I & O 08/25/21 08/25/21 08/26/21 15:00 23:00 07:00 Intake Total 200 ml 0 ml Output Total 125 ml 350 ml Balance 200 ml -125 ml -350 ml In general patient is laying in bed resting comfortably pleasant alert and oriented x3 no acute distress Chest is clear to auscultation Heart S1-S2 normal regular rate and rhythm no murmurs or gallops are noted Abdomen soft nontender nondistended no masses organomegaly noted Extremity exam is unchanged from prior worsening gangrene of every single one of his toes. ALLERGIES Allergies: Allergies Coded Allergies Type Severity Reaction Last Updated Verified No Known Drug Allergies 07/27/21 No MEDS Medications: Current Medications Medications (Trade) Dose Ordered Sig/Vicente Start Time Stop Time Status Last Admin Dose Admin Acetaminophen (Tylenol) 650 mg PRN Q4HRS PRN 06/30/21 15:15 Amino Acids/ Electrolytes/ Dextrose 1,000 ml @ 80 mls/hr [id number] 07/04/21 09:15 UNV Ascorbic Acid (Vitamin C) 500 mg DAILY 07/26/21 09:00 08/26/21 09:01 Aspirin (Aspirin Chewable) 81 mg [id number] 07/23/21 08:00 08/26/21 09:00 Aspirin (Ecotrin) 81 mg [id number] 07/11/21 15:00 07/20/21 14:10 DC 07/20/21 08:52 Atorvastatin Calcium (Lipitor) 20 mg QHS 07/11/21 21:00 08/25/21 21:12 Azithromycin 250 ml @ 250 mls/hr 1X ONCE 06/29/21 20:00 06/29/21 20:59 DC 06/29/21 20:00 Cefazolin Sodium 1 gm/Sodium Chloride 500 ml @ 500 mls/hr 1X ONCE 07/25/21 06:00 07/25/21 07:00 DC Cefazolin Sodium/ Dextrose 50 ml @ 100 mls/hr 1X PREOP PRN 07/25/21 06:00 07/25/21 18:00 DC Ceftriaxone Sodium (Rocephin) 1 gm 1X ONCE 06/29/21 20:00 06/29/21 20:05 DC 06/29/21 20:29 Cellulose (Surgicel Fibrillar 1x2) 1 each STK-MED ONCE 07/20/21 16:04 07/20/21 16:05 DC 07/20/21 16:07 Dexamethasone Sodium Phosphate (Decadron) 4 mg STK-MED ONCE 07/25/21 07:08 07/25/21 07:08 DC Dextrose (Dextrose 50%-Water Syringe) 12.5 gm PRN Q15MIN PRN 07/05/21 12:45 07/09/21 23:48 Dextrose/Lactated Ringer's 1,000 ml @ 80 mls/hr [id number] 07/04/21 09:30 07/12/21 10:58 DC 07/12/21 06:27 Diphenhydramine HCl (Benadryl) 25 mg PRN QHS PRN 06/30/21 15:15 07/05/21 14:02 DC Docusate Sodium (Colace) 100 mg PRN DAILY PRN 06/30/21 15:15 08/13/21 09:08 Enoxaparin Sodium (Lovenox 40mg Syringe) 40 mg Q24H 06/30/21 16:00 07/14/21 12:21 DC 07/13/21 17:20 Enoxaparin Sodium (Lovenox 80mg Syringe) 80 mg Q12HR 07/14/21 13:00 07/17/21 12:12 DC 07/16/21 21:01 Ephedrine Sulfate (ePHEDrine PF IN SALINE SYRINGE) 50 mg STK-MED ONCE 07/17/21 05:34 07/18/21 13:30 DC Epinephrine HCl (Adrenalin) 1 mg STK-MED ONCE 07/17/21 05:35 07/18/21 13:30 DC Epinephrine HCl (EPINEPHrine SYRINGE) 1 mg STK-MED ONCE 07/17/21 07:35 07/18/21 13:31 DC Fentanyl Citrate (Fentanyl 2ml Vial) 100 mcg STK-MED ONCE 07/25/21 06:53 07/25/21 06:53 DC Fentanyl Citrate (Fentanyl 5ml Vial) 250 mcg STK-MED ONCE 07/17/21 07:37 07/18/21 13:31 DC Glycopyrrolate (Glycopyrrolate) 1 mg STK-MED ONCE 07/17/21 12:00 07/18/21 12:44 DC Heparin Sodium (Porcine) (Heparin Sodium) 2,000 unit PRN Q6HRS PRN 07/22/21 16:30 07/26/21 13:44 DC 07/23/21 01:17 Heparin Sodium (Porcine) 5000 unit/Sodium Chloride 505 ml @ 505 mls/hr 1X ONCE 07/17/21 08:00 07/17/21 08:59 DC 07/17/21 08:57 Heparin Sodium/ Dextrose 250 ml @ 8.789 mls/ hr CONT PRN 07/22/21 16:30 07/26/21 13:44 DC 07/25/21 20:23 Heparin Sodium/ Sodium Chloride 1,000 ml @ As Directed STK-MED ONCE 07/13/21 12:45 07/18/21 12:53 DC Heparin Sodium/ Sodium Chloride (HEPARIN for ARTERIAL LINE FLUSH) 1,000 unit 1X ONCE 07/13/21 13:00 07/13/21 13:01 DC 07/13/21 13:00 Hydromorphone HCl (Dilaudid) 0.5 mg PRN Q10MIN PRN 07/25/21 06:00 07/25/21 20:00 DC Info (Anti-Coagulation Monitoring By Pharmacy) 1 each PRN DAILY PRN 08/05/21 12:30 08/14/21 10:58 Info (FLU VACCINE SCREEN per RX) 0.5 each 1X ONCE 07/01/21 09:00 07/01/21 09:01 DC Insulin Human Lispro (HumaLOG VIAL for OP,RR ONLY) 0-10 units PRN Q1HR PRN 07/20/21 16:15 07/21/21 16:14 DC Insulin Human Lispro (HumaLOG) 0-5 UNITS TIDWMEALS 07/05/21 17:00 08/16/21 12:05 Iodixanol (Visipaque 320) 100 ml STK-MED ONCE 07/13/21 08:02 07/18/21 12:49 DC Iohexol (Omnipaque 300 Mg/ml) 50 ml STK-MED ONCE 07/17/21 07:08 07/18/21 13:29 DC Lidocaine HCl (Lidocaine 1% 20ml Vial) 20 ml 1X ONCE 07/13/21 13:00 07/13/21 13:01 DC 07/13/21 13:22 Lidocaine HCl (Xylocaine 1% Pf 30ml Vial) 30 ml STK-MED ONCE 07/25/21 07:55 07/25/21 07:56 DC Lidocaine HCl (Xylocaine-Mpf 1% 5ml Vial) 5 ml STK-MED ONCE 07/20/21 14:07 07/20/21 14:07 DC Lorazepam (Ativan Inj) 0.25 mg PRN Q4HRS PRN 06/30/21 15:15 07/05/21 14:02 DC Lorazepam (Ativan) 0.5 mg PRN Q6HRS PRN 06/30/21 15:15 07/05/21 14:02 DC Metoprolol Tartrate (Lopressor) 25 mg BID 07/12/21 12:15 08/26/21 09:01 Midazolam HCl (Versed) 2 mg STK-MED ONCE 07/17/21 07:37 07/18/21 13:31 DC Morphine Sulfate (Morphine Sulfate) 1 mg PRN Q10MIN PRN 07/25/21 06:00 07/25/21 20:00 DC Nitroglycerin (Nitroglycerin) 200 mcg 1X ONCE 07/13/21 13:30 07/13/21 13:35 DC 07/13/21 13:23 Nystatin (Nystop) 1 alison BID 08/03/21 21:00 08/25/21 21:00 Ondansetron HCl (Zofran) 4 mg STK-MED ONCE 07/25/21 07:08 07/25/21 07:08 DC Oxycodone/ Acetaminophen (Percocet 5/325) 2 tab PRN Q4HRS PRN 07/20/21 16:45 08/22/21 20:24 Pantoprazole Sodium (PROTONIX VIAL for IV PUSH) 40 mg DAILYAC 06/30/21 16:00 07/27/21 16:51 DC 07/27/21 08:44 Pantoprazole Sodium (Protonix) 40 mg DAILYAC 07/28/21 07:30 08/26/21 09:01 Phenylephrine HCl (Jesus-Synephrine Inj) 10 mg STK-MED ONCE 07/17/21 05:34 07/18/21 13:30 DC Potassium Chloride/Water 100 ml @ 100 mls/hr Q1H 07/25/21 08:00 07/25/21 13:59 DC 07/25/21 13:25 Potassium Chloride (Klor-Con) 20 meq 1X ONCE 07/14/21 11:00 07/14/21 11:01 DC 07/14/21 11:48 Prochlorperazine Edisylate (Compazine) 5 mg PACU PRN PRN 07/25/21 06:00 07/25/21 20:00 DC Propofol (Diprivan) 200 mg STK-MED ONCE 07/25/21 06:52 07/25/21 06:53 DC Protamine Sulfate (Protamine) 50 mg STK-MED ONCE 07/17/21 07:35 07/18/21 13:31 DC Ringer's Solution 1,000 ml @ 30 mls/hr Q24H 07/25/21 06:00 07/25/21 17:59 DC 07/25/21 07:58 Rivaroxaban (Xarelto) 20 mg DAILYWSUP 07/26/21 17:00 08/26/21 17:41 Rocuronium [place] (Zemuron) 50 mg STK-MED ONCE 07/25/21 06:59 07/25/21 06:59 DC Sennosides (Senna) 17.2 mg PRN BID PRN 06/30/21 15:15 08/13/21 09:08 Sodium Chloride 1,000 ml @ 100 mls/hr Q10H 07/17/21 12:00 07/21/21 15:21 DC 07/21/21 10:38 Succinylcholine Chloride (Anectine) 200 mg STK-MED ONCE 07/17/21 05:35 07/18/21 13:30 DC Sugammadex Sodium (Bridion) 200 mg 1X ONCE 07/17/21 09:30 07/17/21 09:31 DC Thiamine Mononitrate (Vitamin B-1) 100 mg DAILY 07/26/21 09:00 08/26/21 09:01 Verapamil HCl (Verapamil) 5 mg STK-MED ONCE 07/13/21 13:12 07/18/21 12:53 DC Zinc Sulfate (Orazinc) 220 mg DAILY 06/30/21 16:00 08/26/21 09:01 Zolpidem Tartrate (Ambien) 2.5 mg PRN QHS PRN 06/30/21 15:15 07/05/21 14:02 DC LAB Lab: Laboratory Tests Test 08/25/21 21:26 08/26/21 07:33 08/26/21 11:50 08/26/21 17:01 Glucose (Fingerstick) 118 mg/dL (70-99) H 104 mg/dL (70-99) H 134 mg/dL (70-99) H 126 mg/dL (70-99) H ASSESSMENT & PLAN A&P Plan as noted above This note was created using [employer] and may have omissions and/or errors due to the nature of real-time voice indigo v[employer] tender cloth. Justifications for Admission Other Justification COVID-19 positive test (U07.1, COVID-19) with Acute Pneumonia (J12.89, Other viral pneumonia) (If respiratory failure or sepsis present, add as separate assessment) RACHEL SALGADO MD Aug 26, 2021 19:17
[2021-08-26] MEDS: ATORVASTATIN CALCIUM 20 MG TABLET PO SCH (20:36)
[2021-08-26 23:22] VITALS: BP 110/75
[2021-08-27 03:00] VITALS: BP 100/66
[2021-08-27] MEDS: PANTOPRAZOLE 40 MG TABLET.DR. PO SCH (06:15)
[2021-08-27 07:00] VITALS: BP 97/70
[2021-08-27 07:29] LABS: BASO # 0.1 x10^3/uL (0.0-0.2); BASO % 1 % (0-3); EOS # 0.5 x10^3/uL (0.0-0.7); EOS % 5 % (0-3); HEMOGLOBIN 11.7 g/dL (13.0-17.5); LYMPH # 2.8 x10^3/uL (1.0-4.8); LYMPH % 29 % (24-48); MEAN CORPUSCULAR HEMOGLOBIN 28 pg (25-35); MEAN CORPUSCULAR HGB CONC 32 g/dL (31-37); MEAN CORPUSCULAR VOLUME 90 fL (79-100); MONO # 1.1 x10^3/uL (0.0-1.1); MONO % 12 % (0-9); NEUT # 5.1 x10^3/uL (1.8-7.7); NEUT % 53 % (31-73); PLATELET COUNT 252 x10^3/uL (140-400); RED BLOOD COUNT 4.12 x10^6/uL (4.30-5.70); RED CELL DISTRIBUTION WIDTH 16.2 % (11.5-14.5); WHITE BLOOD COUNT 9.5 x10^3/uL (4.0-11.0)
[2021-08-27 07:38] LABS: ALBUMIN 2.7 g/dL (3.4-5.0); ALBUMIN/GLOBULIN RATIO 0.7 (1.0-1.7); CREATININE 0.8 mg/dL (0.7-1.3); POTASSIUM 3.8 mmol/L (3.5-5.1); TOTAL BILIRUBIN 0.5 mg/dL (0.2-1.0); TOTAL PROTEIN 6.5 g/dL (6.4-8.2)
[2021-08-27] MEDS: INSULIN LISPRO 300 UNITS/3 ML VIAL. SQ SCH ×3 (08:00→17:00)
[2021-08-27] MEDS: NYSTATIN TOPICAL POWDER 15GM BOTTLE. TP SCH ×2 (09:00→21:04)
[2021-08-27] MEDS: ZINC SULFATE 220 MG CAPSULE. PO SCH (09:33)
[2021-08-27] MEDS: ASCORBIC ACID 500 MG TABLET PO SCH (09:33)
[2021-08-27] MEDS: THIAMINE 100 MG TABLET. PO SCH (09:33)
[2021-08-27] MEDS: ASPIRIN CHEWABLE 81 MG TABLET. PO SCH (09:33)
[2021-08-27] MEDS: METOPROLOL TART IMMED RELEASE 25 MG TABLET. PO SCH ×2 (09:34→21:04)
[2021-08-27] MEDS: oxyCODONE/APAP 5/325 1 TAB TABLET PO PRN ×2 (09:35→18:11)
--- NOTE | 2021-08-27 09:50 | PDOC ---
[facility] PROGRESS NOTE Date of Service DOS: DATE: 08/27/21 TIME: 09:49 Chief Complaint Chief Complaint Resolving Covid-19 Subacute thrombotic occlusion of the bilateral popliteal and proximal tibial vessels. s/p bilateral pop/tibial thrombectomies with patch angioplasty s/p RLE hematoma evacuation Metabolic cephalopathy Probable Covid toes IVORY Lactic acidosis Dysphagia Malnutrition Heel erythema Poor nail care History of Present Illness History of Present Illness 08/26/2021 No acute events overnight. Patient seen examined bedside. No complaints at this time. Pain is well controlled. Patient is ready for surgery on Friday 08/25: Seen bedside. Able to get up. Pain is well controlled. No chest pain or shortness of breath. Continue therapy modalities. Discussed with RN. 08/24: Seen bedside. Has been working with therapy feels is getting stronger. He tells me he thinks he is getting surgery tentatively on 08/29/2021 and will have "most of my toes cut off". 08/23: No acute events overnight. Patient seen and examined bedside. Plan for surgery with vascular surgery on August 29. Continue wound care for now. Osteomyelitis ruled out. Patient's chart, labs, images were reviewed and discussed with RN 08/22: No acute events overnight. Patient seen and examined bedside. Pending va scular surgery evaluation for possible toe amputations. Continue wound care for now. 08/21: Examined at bedside. Clinically stable. Rehab screen. Continue current plan otherwise. 08/20: Eval examined at bedside. No complaints, no distress. Rehab screen tomorrow. 08/19: Evaluated examined at bedside. Resting in bed did not appear in any distress. Continue therapy modalities 08/18: Evaluated examined at bedside. No major complaints. No distress. Screen for rehab on Saturday. 08/17: Evaluated examined at bedside. Resting in bed did not appear in any distress. Continue therapy for modalities 08/16: Patient seen and examined. He is resting with no apparent distress 08/15: Patient seen and examined. Jesica removed yesterday, incision site looks good 08/14/2021 Patient seen and examined Discussed with RN Chart reviewed I called the vascular surgery nurse practitioner to see if they could take the jesica out They said they would come later today to check on that (appreciate their help) 08/13/2019 Patient seen and examined He is up in the chair His nurse states he was able to walk to the bathroom twice His feet both still look necrotic Discussed with RN Chart reviewed 08/12/2021 Patient seen and examined Discussed with RN Chart reviewed Left foot still looks necrotic across the toes and the heel The right foot looks slightly better with slight healing of the heel but the toes are still quite necrotic 08/11/2021 Patient seen and examined Discussed with RN Chart reviewed Discussed with case management He took 8 steps yesterday 08/10/2021 Patient seen and examined exam discussed with case management Discussed with RN Chart reviewed No change clinically still wearing lower extremity protectors the toes are necrotic as are the heels 08/09: Seen sitting in chair today. He is wearing his postoperative shoes feels he is minimally stronger. Short of breath on exertion. 08/08: Seen and examined bedside. He is awaiting therapy evaluation today. Foot pain is well controlled. No worsening erythema or fevers but does have some drainage on the lateral left heel wound. No shortness of breath or chest pain. 08/04/2021 Patient seen and examined He is resting with no apparent distress Discussed with case management Chart reviewed Vascular surgery saw him again yesterday and is hoping to only have to do TMA in the future instead of BKA if we let his feett tissues try to recover for a few weeks Appreciate vascular input. 08/03/2021 Patient seen and examined Laying comfortably in bed with flat affect Bilateral heel protectors present; Dry gangrene present on bilateral toes and heels; Discussed with the wound care nurse Discussed with patient the need for vascular surgery input regarding foot surgery and potential bilateral BKA Chart reviewed Discussed with RN 08/02/2021 Patient seen and examined Discussed with RN Chart reviewed He is resting with no apparent distress 08/01/2021 Patient seen and examined He seems depressed and very weak He has heel protectors on both the toes that are exposed are extremely gangrenous and black and demarcated Discussed with the wound care nurse He explains that vascular surgery is awaiting the complete demarcation to finish up and then they will consider surgery at that time Chart reviewed Discussed with RN 07/31/2021 Patient seen and examined Discussed plan Chart reviewed Still feeling weak Mr Lambert is a 60-year-old male that presented 06/29/2021 via [facility] with decreased level of consciousness. Most of the history was obtained via EMS and patient's friend Reese [phone], who states that patient has been sick since about June 22 per Reese, he states that they both had cough cold headache sinus type pain. Per Reese's report patient is okay during the day and very alert and orientated and at night he has a decreased alertness. Patient is unable to help with exam when asked questions he does deny any past medical history, surgeries, or any other health conditions. Reese who is his roommate collaborates any information gotten from the patient. Accu-Chek per EMS was 250, room air sat in the room was 88 to 90%. 07/07: not much improved, about the same. cont current. PULM following. we have no clinimix, cont D5 fluid, 07/08: more alert, can try ST again, if able to sit up, still very weak 07/09: much more alert, bedside swallow of water ok, sits upright, much stronger, will try clears if able, ST to follow. toes are worsening, now black, hannah consult podiatry to follow, 07/10: More alert. Working with speech and swallowing today. Off O2. Less confused. Bilateral toe ulcers assessed by podiatry today. 07/11: More alert, eating. Arterial Doppler was left popliteal and severe distal disease bilaterally. Still has a little bit of a cough. Less confused today. 07/12: Eating reasonably well. Tentative plans for angiogram for consideration of limb salvage bilateral feet tomorrow. Discussed with cardiology. He will need significant follow-up care likely eventual amputations. 07/13: N.p.o. for angiogram today with bilateral SFA occlusive disease and left popliteal disease with left posterior tibial artery with some flow otherwise occlusive disease per cardiology. Discussed vascular surgery consultation for consideration of definitive revascularization with likely bilateral transmetatarsal amputations. Still with a little bit of a cough. Shortness of breath 07/14: Seen bedside. Having some pain in his bilateral extremities. Shortness of breath improved still with little bit of cough. Eating again. Amenable to revascularization and likely surgical debridement next week. Increasing thromboprophylaxis 07/15: Seen bedside. Not hypoxic. Cough is improving. He feels he is mental status is improved but he is definitely still mentating slowly. Complains of foot pain. He is contemplating surgical options but is okay with what ever the surgeons to choose for his likely lower extremity bypass tentatively planned for 07/17/202107/16: Bilateral foot pain still with cough but improving. Still is contemplating surgical options. 07/17: Patient off floor for surgery today. Chart evaluated. s/p bilateral pop/tibial thrombectomies with patch angioplasty. s/p RLE hematoma evacuation 07/18: Patient did and examined at bedside. He is postop day 1 from bilateral thrombectomies yesterday. Looks like he may need more surgery prior to disch arge. Continue heparin drip. Suspect leukocytosis today secondary to surgery. Continue current. 07/19: Patient evaluated examined at bedside. He was working with physical therapy when seen. Continuing heparin drip. Recheck CBC today. Cardiology following vascular following. Will likely need further surgery prior to discharge. 07/20: Seen at bedside. Having RLE pain and had Hgb drop overnight. Will transfuse. Stop heparin drip for now. Seen by vascular, hematoma evacuation ordered. serial Hgb. 07/21: Patient evaluated examined at bedside. Hemoglobin improved up to 8.1 today. Underwent hematoma evacuation yesterday. Planning for further intervention next week. 07/22: Examine and evaluated at bedside. Resting in bed no major complaints. Hemoglobin stable. Appreciate Cardiology resuming heparin. Further intervention next week. 07/23: Seen at bedside no motor complaints. Hemoglobin still stable. No major clinical changes for today. Intervention this coming week. 07/24: Seen bedside. Has good appetite no cough shortness of breath or chest pain. Left heel with more gangrenous changes left feet. Plan for n.p.o. after midnight 07/25: Seen bedside. N.p.o. for bilateral foot debridement today. K3. Glucose low 100s. Has a friend visiting today. No chest pain or shortness of breath. Pain controlled. 2/2: Changes in the off heparin drip to Xarelto. No significant anticoagulation for 3 months then can start progressive ambulation with physical therapy with postop shoe per vascular surgery recommendations. No shortness of breath or chest pain today just very weak. 2/3: Up to chair today, has more bilateral foot pain, now wearing post -op shoes. No SOB or cough. He is asking to get back into bed. Encouraged to continue trying to get on his feet. 2/4: In bed. Foot pain is improved from yesterday. No shortness of breath no cough. Still very weak even weak eating today. 07/29: Seen in bed. No foot pain today. No shortness of breath or cough. Still weak eating well. Not out of bed today. Glucose low 100s. 07/30: Seen in bed. Pain-free eating breakfast in bed. Still feeling weak has been up on his foot the last day. Glucose well controlled. Vitals/I&O Vitals/I&O: Vital Signs Date Time Temp Pulse Resp B/P (MAP) Pulse Ox O2 Delivery O2 Flow Rate FiO2 08/27/21 09:35 Room Air 08/27/21 09:34 92 97/70 08/27/21 07:00 97.5 18 94 97.5 I & O 08/26/21 08/26/21 08/27/21 15:00 23:00 07:00 Intake Total 100 ml Balance 100 ml Physical Exam Physical Exam: lethargic and weak General: Alert, Oriented X3, Cooperative, No acute distress, Other (Resting) Heart: Regular rate Lungs: Clear Abdomen: Normal bowel sounds Extremities: Other (Severely black toes please see the pictures) Skin: Other (No further hematoma accumulation) Labs Labs: Laboratory Tests Test 08/26/21 11:50 08/26/21 17:01 08/26/21 19:20 08/27/21 06:05 Glucose (Fingerstick) 134 mg/dL (70-99) 126 mg/dL (70-99) 142 mg/dL (70-99) White Blood Count 9.5 x10^3/uL (4.0-11.0) Red Blood Count 4.12 x10^6/uL (4.30-5.70) Hemoglobin 11.7 g/dL (13.0-17.5) Hematocrit 37.0 % (39.0-53.0) Mean Corpuscular Volume 90 fL (79-100) Mean Corpuscular Hemoglobin 28 pg (25-35) Mean Corpuscular Hemoglobin Concent 32 g/dL (31-37) Red Cell Distribution Width 16.2 % (11.5-14.5) Platelet Count 252 x10^3/uL (140-400) Neutrophils (%) (Auto) 53 % (31-73) Lymphocytes (%) (Auto) 29 % (24-48) Monocytes (%) (Auto) 12 % (0-9) Eosinophils (%) (Auto) 5 % (0-3) Basophils (%) (Auto) 1 % (0-3) Neutrophils # (Auto) 5.1 x10^3/uL (1.8-7.7) Lymphocytes # (Auto) 2.8 x10^3/uL (1.0-4.8) Monocytes # (Auto) 1.1 x10^3/uL (0.0-1.1) Eosinophils # (Auto) 0.5 x10^3/uL (0.0-0.7) Basophils # (Auto) 0.1 x10^3/uL (0.0-0.2) Sodium Level 142 mmol/L (136-145) Potassium Level 3.8 mmol/L (3.5-5.1) Chloride Level 103 mmol/L (98-107) Carbon Dioxide Level 27 mmol/L (21-32) Anion Gap 12 (6-14) Blood Urea Nitrogen 12 mg/dL (8-26) Creatinine 0.8 mg/dL (0.7-1.3) Estimated GFR (Cockcroft-Gault) 98.0 BUN/Creatinine Ratio 15 (6-20) Glucose Level 92 mg/dL (70-99) Calcium Level 9.0 mg/dL (8.5-10.1) Total Bilirubin 0.5 mg/dL (0.2-1.0) Aspartate Amino Transf (AST/SGOT) 17 U/L (15-37) Alanine Aminotransferase (ALT/SGPT) 19 U/L (16-63) Alkaline Phosphatase 50 U/L (46-116) Total Protein 6.5 g/dL (6.4-8.2) Albumin 2.7 g/dL (3.4-5.0) Albumin/Globulin Ratio 0.7 (1.0-1.7) Test 08/27/21 07:11 Glucose (Fingerstick) 102 mg/dL (70-99) Assessment and Plan Assessmemt and Plan Problems Medical Problems: (1) Dehydration Status: Acute (2) Mental status alteration Status: Acute (3) Pneumonia Status: Acute Comment Review of Relevant I have reviewed the following items amanda (where applicable) has been applied. Justifications for Admission Other Justification COVID-19 positive test (U07.1, COVID-19) with Acute Pneumonia (J12.89, Other viral pneumonia) (If respiratory failure or sepsis present, add as separate assessment) BRIANA MOHR MD Aug 27, 2021 09:50
[2021-08-27] MEDS: ANTI-COAG MONITOR BY PHARMACY. MC PRN (10:46)
[2021-08-27 11:00] VITALS: BP 121/80
[2021-08-27 15:00] VITALS: BP 119/79
[2021-08-27] MEDS: RIVAROXABAN 10 MG TABLET. PO SCH (18:10)
[2021-08-27 19:00] VITALS: BP 114/74
[2021-08-27] MEDS: ATORVASTATIN CALCIUM 20 MG TABLET PO SCH (21:04)
[2021-08-27 23:00] VITALS: BP 117/55
[2021-08-28 03:00] VITALS: BP 111/73
[2021-08-28 07:00] VITALS: BP 133/67
[2021-08-28 07:38] LABS: BASO # 0.1 x10^3/uL (0.0-0.2); BASO % 1 % (0-3); EOS # 0.4 x10^3/uL (0.0-0.7); EOS % 4 % (0-3); HEMATOCRIT 36.4 % (39.0-53.0); HEMOGLOBIN 11.5 g/dL (13.0-17.5); LYMPH # 2.3 x10^3/uL (1.0-4.8); LYMPH % 23 % (24-48); MEAN CORPUSCULAR HEMOGLOBIN 29 pg (25-35); MEAN CORPUSCULAR HGB CONC 32 g/dL (31-37); MEAN CORPUSCULAR VOLUME 91 fL (79-100); MONO % 10 % (0-9); NEUT # 6.2 x10^3/uL (1.8-7.7); NEUT % 62 % (31-73); PLATELET COUNT 246 x10^3/uL (140-400); RED BLOOD COUNT 4.02 x10^6/uL (4.30-5.70); RED CELL DISTRIBUTION WIDTH 15.9 % (11.5-14.5)
[2021-08-28 07:48] LABS: PROTHROMBIN TIME PATIENT 24.9 SEC (11.7-14.0)
[2021-08-28 07:49] LABS: ALBUMIN 2.7 g/dL (3.4-5.0); ALBUMIN/GLOBULIN RATIO 0.7 (1.0-1.7); CALCIUM 8.9 mg/dL (8.5-10.1); CREATININE 0.9 mg/dL (0.7-1.3); GFR 85.5; POTASSIUM 3.9 mmol/L (3.5-5.1); TOTAL BILIRUBIN 0.6 mg/dL (0.2-1.0); TOTAL PROTEIN 6.7 g/dL (6.4-8.2)
[2021-08-28] MEDS: INSULIN LISPRO 300 UNITS/3 ML VIAL. SQ SCH ×3 (08:00→16:44)
--- NOTE | 2021-08-28 08:59 | PDOC ---
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 s/p bilateral pop/tibial thrombectomies with patch angioplasty s/p RLE hematoma evacuation Metabolic cephalopathy Probable Covid toes IVORY Lactic acidosis Dysphagia Malnutrition Heel erythema Poor nail care Severe malnutrition History of Present Illness History of Present Illness 08/28/2021: Afebrile. Patient denies chest pain or shortness of breath. He reports some left lower extremity pain that is controlled with medications. Reportedly has plans for surgical amputation of left toes tomorrow. 08/26/2021 No acute events overnight. Patient seen examined bedside. No complaints at this time. Pain is well controlled. Patient is ready for surgery on Friday 08/25: Seen bedside. Able to get up. Pain is well controlled. No chest pain or shortness of breath. Continue therapy modalities. Discussed with RN. 08/24: Seen bedside. Has been working with therapy feels is getting stronger. He tells me he thinks he is getting surgery tentatively on 08/29/2021 and will have "most of my toes cut off". 08/23: No acute events overnight. Patient seen and examined bedside. Plan for surgery with vascular surgery on August 29. Continue wound care for now. Osteomyelitis ruled out. Patient's chart, labs, images were reviewed and discussed with RN 08/22: No acute events overnight. Patient seen and examined bedside. Pending vascular surgery evaluation for possible toe amputations. Continue wound care for now. 08/21: Examined at bedside. Clinically stable. Rehab screen. Continue current plan otherwise. 08/20: Eval examined at bedside. No complaints, no distress. Rehab screen tomorrow. 08/19: Evaluated examined at bedside. Resting in bed did not appear in any distress. Continue therapy modalities 08/18: Evaluated examined at bedside. No major complaints. No distress. Screen for rehab on Saturday. 08/17: Evaluated examined at bedside. Resting in bed did not appear in any distress. Continue therapy for modalities 08/16: Patient seen and examined. He is resting with no apparent distress 08/15: Patient seen and examined. [place] removed yesterday, incision site looks good 08/14/2021 Patient seen and examined Discussed with RN Chart reviewed I called the vascular surgery nurse practitioner to see if they could take the janet out They said they would come later today to check on that (appreciate their help) 08/13/2019 Patient seen and examined He is up in the chair His nurse states he was able to walk to the bathroom twice His feet both still look necrotic Discussed with RN Chart reviewed 08/12/2021 Patient seen and examined Discussed with RN Chart reviewed Left foot still looks necrotic across the toes and the heel The right foot looks slightly better with slight healing of the heel but the toes are still quite necrotic 08/11/2021 Patient seen and examined Discussed with RN Chart reviewed Discussed with case management He took 8 steps yesterday 08/10/2021 Patient seen and examined exam discussed with case management Discussed with RN Chart reviewed No change clinically still wearing lower extremity protectors the toes are necrotic as are the heels 08/09: Seen sitting in chair today. He is wearing his postoperative shoes feels he is minimally stronger. Short of breath on exertion. 08/08: Seen and examined bedside. He is awaiting therapy evaluation today. Foot pain is well controlled. No worsening erythema or fevers but does have some dr lopes on the lateral left heel wound. No shortness of breath or chest pain. 08/04/2021 Patient seen and examined He is resting with no apparent distress Discussed with case management Chart reviewed Vascular surgery saw him again yesterday and is hoping to only have to do TMA in the future instead of BKA if we let his feett tissues try to recover for a few weeks Appreciate vascular input. 08/03/2021 Patient seen and examined Laying comfortably in bed with flat affect Bilateral heel protectors present; Dry gangrene present on bilateral toes and heels; Discussed with the wound care nurse Discussed with patient the need for vascular surgery input regarding foot surgery and potential bilateral BKA Chart reviewed Discussed with RN 08/02/2021 Patient seen and examined Discussed with RN Chart reviewed He is resting with no apparent distress 08/01/2021 Patient seen and examined He seems depressed and very weak He has heel protectors on both the toes that are exposed are extremely gangrenous and black and demarcated Discussed with the wound care nurse He explains that vascular surgery is awaiting the complete demarcation to finish up and then they will consider surgery at that time Chart reviewed Discussed with RN 07/31/2021 Patient seen and examined Discussed plan Chart reviewed Still feeling weak Mr Lambert is a 60-year-old male that presented 06/29/2021 via [facility] with decreased level of consciousness. Most of the history was obtained via EMS and patient's friend Reese [phone], who states that patient has been sick since about June 22 per Reese, he states that they both had cough cold headache sinus type pain. Per Reese's report patient is okay during the day and very alert and orientated and at night he has a decreased alertness. Patient is unable to help with exam when asked questions he does deny any past medical history, surgeries, or any other health conditions. Reese who is his roommate collaborates any information gotten from the patient. Accu-Chek per EMS was 250, room air sat in the room was 88 to 90%. 07/07: not much improved, about the same. cont current. PULM following. we have no clinimix, cont D5 fluid, 07/08: more alert, can try ST again, if able to sit up, still very weak 07/09: much more alert, bedside swallow of water ok, sits upright, much stronger, will try clears if able, ST to follow. toes are worsening, now black, hannah consult podiatry to follow, 07/10: More alert. Working with speech and swallowing today. Off O2. Less confused. Bilateral toe ulcers assessed by podiatry today. 07/11: More alert, eating. Arterial Doppler was left popliteal and severe distal disease bilaterally. Still has a little bit of a cough. Less confused today. 07/12: Eating reasonably well. Tentative plans for angiogram for consideration of limb salvage bilateral feet tomorrow. Discussed with cardiology. He will need significant follow-up care likely eventual amputations. 07/13: N.p.o. for angiogram today with bilateral SFA occlusive disease and left popliteal disease with left posterior tibial artery with some flow otherwise occlusive disease per cardiology. Discussed vascular surgery consultation for consideration of definitive revascularization with likely bilateral transmetatarsal amputations. Still with a little bit of a cough. Shortness of breath 07/14: Seen bedside. Having some pain in his bilateral extremities. Shortness of breath improved still with little bit of cough. Eating again. Amenable to revascularization and likely surgical debridement next week. Increasing thr omboprophylaxis 07/15: Seen bedside. Not hypoxic. Cough is improving. He feels he is mental status is improved but he is definitely still mentating slowly. Complains of foot pain. He is contemplating surgical options but is okay with what ever the surgeons to choose for his likely lower extremity bypass tentatively planned for 07/17/202107/16: Bilateral foot pain still with cough but improving. Still is contemplating surgical options. 07/17: Patient off floor for surgery today. Chart evaluated. s/p bilateral pop/tibial thrombectomies with patch angioplasty. s/p RLE hematoma evacuation 07/18: Patient did and examined at bedside. He is postop day 1 from bilateral thrombectomies yesterday. Looks like he may need more surgery prior to discharge. Continue heparin drip. Suspect leukocytosis today secondary to surgery. Continue current. 07/19: Patient evaluated examined at bedside. He was working with physical therapy when seen. Continuing heparin drip. Recheck CBC today. Cardiology following vascular following. Will likely need further surgery prior to discharge. 07/20: Seen at bedside. Having RLE pain and had Hgb drop overnight. Will transfuse. Stop heparin drip for now. Seen by vascular, hematoma evacuation ordered. serial Hgb. 07/21: Patient evaluated examined at bedside. Hemoglobin improved up to 8.1 today. Underwent hematoma evacuation yesterday. Planning for further intervention next week. 07/22: Examine and evaluated at bedside. Resting in bed no major complaints. Hemoglobin stable. Appreciate Cardiology resuming heparin. Further intervention next week. 07/23: Seen at bedside no motor complaints. Hemoglobin still stable. No major clinical changes for today. Intervention this coming week. 07/24: Seen bedside. Has good appetite no cough shortness of breath or chest pain. Left heel with more gangrenous changes left feet. Plan for n.p.o. after midnight 07/25: Seen bedside. N.p.o. for bilateral foot debridement today. K3. Glucose low 100s. Has a friend visiting today. No chest pain or shortness of breath. Pain controlled. 07/26: Changes in the off heparin drip to Xarelto. No significant anticoagulation for 3 months then can start progressive ambulation with physical therapy with postop shoe per vascular surgery recommendations. No shortness of breath or chest pain today just very weak. 2/3: Up to chair today, has more bilateral foot pain, now wearing post -op sh oes. No SOB or cough. He is asking to get back into bed. Encouraged to continue trying to get on his feet. 2: In bed. Foot pain is improved from yesterday. No shortness of breath no cough. Still very weak even weak eating today. 07/29: Seen in bed. No foot pain today. No shortness of breath or cough. Still weak eating well. Not out of bed today. Glucose low 100s. 07/30: Seen in bed. Pain-free eating breakfast in bed. Still feeling weak has been up on his foot the last day. Glucose well controlled. Vitals/I&O Vitals/I&O: Vital Signs Date Time Temp Pulse Resp B/P (MAP) Pulse Ox O2 Delivery O2 Flow Rate FiO2 08/28/21 07:00 97.9 86 18 133/67 (89) 96 Room Air 97.9 I & O 08/27/21 08/27/21 08/28/21 15:00 23:00 07:00 Intake Total 120 ml 380 ml Output Total 200 ml 1 ml Balance -80 ml 379 ml Physical Exam Physical Exam: lethargic and weak General: Alert, Oriented X3, Cooperative, No acute distress, Other (Resting) Heart: Regular rate Lungs: Clear Abdomen: Normal bowel sounds Extremities: Other (Severely black toes please see the pictures) Skin: Other (No further hematoma accumulation) Labs Labs: Laboratory Tests Test 08/27/21 11:44 08/27/21 16:50 08/27/21 19:44 08/28/21 06:27 Glucose (Fingerstick) 111 mg/dL (70-99) 116 mg/dL (70-99) 129 mg/dL (70-99) White Blood Count 10.0 x10^3/uL (4.0-11.0) Red Blood Count 4.02 x10^6/uL (4.30-5.70) Hemoglobin 11.5 g/dL (13.0-17.5) Hematocrit 36.4 % (39.0-53.0) Mean Corpuscular Volume 91 fL (79-100) Mean Corpuscular Hemoglobin 29 pg (25-35) Mean Corpuscular Hemoglobin Concent 32 g/dL (31-37) Red Cell Distribution Width 15.9 % (11.5-14.5) Platelet Count 246 x10^3/uL (140-400) Neutrophils (%) (Auto) 62 % (31-73) Lymphocytes (%) (Auto) 23 % (24-48) Monocytes (%) (Auto) 10 % (0-9) Eosinophils (%) (Auto) 4 % (0-3) Basophils (%) (Auto) 1 % (0-3) Neutrophils # (Auto) 6.2 x10^3/uL (1.8-7.7) Lymphocytes # (Auto) 2.3 x10^3/uL (1.0-4.8) Monocytes # (Auto) 1.0 x10^3/uL (0.0-1.1) Eosinophils # (Auto) 0.4 x10^3/uL (0.0-0.7) Basophils # (Auto) 0.1 x10^3/uL (0.0-0.2) Prothrombin Time 24.9 SEC (11.7-14.0) Prothromb Time International Ratio 2.3 (0.8-1.1) Sodium Level 141 mmol/L (136-145) Potassium Level 3.9 mmol/L (3.5-5.1) Chloride Level 103 mmol/L (98-107) Carbon Dioxide Level 27 mmol/L (21-32) Anion Gap 11 (6-14) Blood Urea Nitrogen 12 mg/dL (8-26) Creatinine 0.9 mg/dL (0.7-1.3) Estimated GFR (Cockcroft-Gault) 85.5 BUN/Creatinine Ratio 13 (6-20) Glucose Level 92 mg/dL (70-99) Calcium Level 8.9 mg/dL (8.5-10.1) Total Bilirubin 0.6 mg/dL (0.2-1.0) Aspartate Amino Transf (AST/SGOT) 16 U/L (15-37) Alanine Aminotransferase (ALT/SGPT) 16 U/L (16-63) Alkaline Phosphatase 51 U/L (46-116) Total Protein 6.7 g/dL (6.4-8.2) Albumin 2.7 g/dL (3.4-5.0) Albumin/Globulin Ratio 0.7 (1.0-1.7) Test 08/28/21 07:29 Glucose (Fingerstick) 109 mg/dL (70-99) Assessment and Plan Assessmemt and Plan Problems Medical Problems: (1) Dehydration Status: Acute (2) Mental status alteration Status: Acute (3) Pneumonia Status: Acute Comment Review of Relevant I have reviewed the following items amanda (where applicable) has been applied. Justifications for Admission Other Justification COVID-19 positive test (U07.1, COVID-19) with Acute Pneumonia (J12.89, Other viral pneumonia) (If respiratory failure or sepsis present, add as separate assessment) TIFFANY HERNANDEZ MD Aug 28, 2021 08:59
[2021-08-28] MEDS: NYSTATIN TOPICAL POWDER 15GM BOTTLE. TP SCH ×2 (09:00→20:55)
[2021-08-28] MEDS: METOPROLOL TART IMMED RELEASE 25 MG TABLET. PO SCH ×2 (09:16→20:55)
[2021-08-28] MEDS: ASPIRIN CHEWABLE 81 MG TABLET. PO SCH (09:16)
[2021-08-28] MEDS: ZINC SULFATE 220 MG CAPSULE. PO SCH (09:16)
[2021-08-28] MEDS: ASCORBIC ACID 500 MG TABLET PO SCH (09:16)
[2021-08-28] MEDS: PANTOPRAZOLE 40 MG TABLET.DR. PO SCH (09:16)
[2021-08-28] MEDS: THIAMINE 100 MG TABLET. PO SCH (09:16)
[2021-08-28] MEDS: oxyCODONE/APAP 5/325 1 TAB TABLET PO PRN (09:21)
--- NOTE | 2021-08-28 10:50 | NUR ---
SW following. Discussed with RN, surgery planned for tomorrow 08/29/21. SW will continue to follow.
[2021-08-28 11:00] VITALS: BP 132/84
--- NOTE | 2021-08-28 12:02 | PDOC ---
Provider Note Date of Service: DATE: 08/28/21 TIME: 12:00 Provider Note Provider Note Vascular S: Patient is resting comfortably in bed, he does complain of some discomfort in his left fifth toe. States he is able to ambulate more easily. Discussed plan for surgery tomorrow, patient is in agreement to proceed. O: Awake and alert Vital signs stable, afebrile Bilateral calf incisions are dry and intact, a healing nicely. Multiple digit dry gangrene, he is starting to have some separation of the gangrenous tissue. Mild drainage from left plantar surface of 4th toe gangrene. Bilateral heel gangrenous eschar, no drainage or bogginess. Palpable bilateral PT pulses Motor and sensation intact A/P: 1. 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 2. History of COVID pneumonia. 3. 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 INR 2.3 s/p bilateral pop/tibial thrombectomies with patch angioplasty 07/17/2021. Feet a re well perfused. s/p RLE hematoma evacuation 07/20/2021 He is doing well post procedures. He continues to have gangrenous changes and demarcation to bilateral feet and heels, he is starting to exhibit separation of the gangrenous tissue. Continue to monitor for signs of infection. Will discuss with Vascular surgeon. He may be approaching time frame for toe amputations. - Continue anticoagulation-will hold due in preparation for surgery - Repeat labs in am-INR - Keep incisions clean and dry - Continue to off-load heels. - Continue PT/OT, no restrictions, may place pressure on heels while walking Justicifation of Admission Dx: Justifications for Admission: Justification of Admission Dx: Yes FAITH YUNG APRN Aug 28, 2021 12:02
[2021-08-28] MEDS: RIVAROXABAN 10 MG TABLET. PO SCH (12:50)
--- NOTE | 2021-08-28 12:51 | NUR ---
Joann held for surgery tomorrow as requested by Eveline Mendoza
[2021-08-28 15:00] VITALS: BP 129/80
[2021-08-28 19:00] VITALS: BP 120/75
[2021-08-28] MEDS: ATORVASTATIN CALCIUM 20 MG TABLET PO SCH (20:55)
[2021-08-28 23:00] VITALS: BP 117/72
[2021-08-29] VITALS (10 sets, daily range): BP systolic 103–128; BP diastolic 61–77
[2021-08-29] MEDS ORDERED: HYDROmorphone 2 MG/ML INJ. IVP PRN (06:00)
[2021-08-29] MEDS ORDERED: IV RINGERS,LACTATED 1000ML 1,000 ML IV SCH (06:00)
[2021-08-29] MEDS ORDERED: PROCHLORPERAZINE 10 MG/2 ML VIAL. IVP PRN (06:00)
[2021-08-29] MEDS ORDERED: fentaNYL PF VIAL 100 MCG/2 ML VIAL IVP PRN (06:00)
[2021-08-29 06:38] LABS: PROTHROMBIN TIME PATIENT 15.3 SEC (11.7-14.0)
[2021-08-29] MEDS ORDERED: PROPOFOL 10 MG/ML (20ML) VIAL. IV ONE (06:51)
[2021-08-29] MEDS ORDERED: ONDANSETRON PF 4 MG/2 ML VIAL. ONE (06:51)
[2021-08-29] MEDS ORDERED: DEXAMETHASONE SOD PHOS 4 MG/ML VIAL ONE (06:51)
[2021-08-29] MEDS ORDERED: fentaNYL PF VIAL 100 MCG/2 ML VIAL ONE ×2 (06:51→09:17)
[2021-08-29] MEDS ORDERED: LIDOCAINE 2% PF 5 ML VIAL. ONE ×2 (06:51)
--- NOTE | 2021-08-29 07:00 | NUR ---
Patient off unit for surgery
[2021-08-29] MEDS ORDERED: PHENYLEPHRINE in 0.9% NACL PF 1 MG/10 ML SYRINGE. IV ONE (07:01)
[2021-08-29] MEDS ORDERED: ceFAZolin 2GM PREMIX 2 GM/50 ML BAG IV ONE (07:02)
--- NOTE | 2021-08-29 07:12 | PDOC ---
Provider Note Date of Service: DATE: 08/29/21 TIME: 07:07 Provider Note Provider Note Mr. Whelan is a 61 year old male with PVD who is s/p bilateral pop/tibial thrombectomies with patch angioplasty 07/17/2021 and RLE hematoma evacuation 07/20/2021. He has gangrene of the 1-5th digits bilaterally. The left has develo ped some evidence of infection with some erythema and odor. He presents today for bilateral 1-5th toe amputations vs TMA. He has palpable pedal pulses. I discussed with him that I believe we will be able to amputate the right toes individually and perform only partial amputations of these. The left foot with signs of infection is more likely to require TMA and depending on what we find, may need to be left open and vac placed. He is understanding of this. We discussed the risks of delayed wound healing, need for further amputation, and remote possibility of cardiopulmonary compromise and . He is agreeable and wishes to proceed today. Anna Lindsey DO Justicifation of Admission Dx: Justifications for Admission: Justification of Admission Dx: Yes ANNA LINDSEY DO Aug 29, 2021 07:12
[2021-08-29] MEDS: PANTOPRAZOLE 40 MG TABLET.DR. PO SCH (07:30)
[2021-08-29] MEDS ORDERED: KETAMINE HCL IN NACL, ISO-OSM 50 MG/5 ML SYRINGE ONE (07:56)
[2021-08-29] MEDS: INSULIN LISPRO 300 UNITS/3 ML VIAL. SQ SCH ×3 (08:00→17:00)
[2021-08-29] MEDS: ASPIRIN CHEWABLE 81 MG TABLET. PO SCH (08:00)
--- NOTE | 2021-08-29 08:09 | PDOC ---
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 s/p bilateral pop/tibial thrombectomies with patch angioplasty s/p RLE hematoma evacuation Metabolic cephalopathy Probable Covid toes IVORY Lactic acidosis Dysphagia Malnutrition Heel erythema Poor nail care Severe malnutrition History of Present Illness History of Present Illness 08/29 Evaluated examined at bedside. Some lower extremity pain. Eager for surgery today. Continue current plan. will follow-up with the patient again after surgery 08/28/2021: Afebrile. Patient denies chest pain or shortness of breath. He reports some left lower extremity pain that is controlled with medications. Reportedly has plans for surgical amputation of left toes tomorrow. 08/26/2021 No acute events overnight. Patient seen examined bedside. No complaints at this time. Pain is well controlled. Patient is ready for surgery on Friday 08/25: Seen bedside. Able to get up. Pain is well controlled. No chest pain or shortness of breath. Continue therapy modalities. Discussed with RN. 08/24: Seen bedside. Has been working with therapy feels is getting stronger. He tells me he thinks he is getting surgery tentatively on 08/29/2021 and will have "most of my toes cut off". 08/23: No acute events overnight. Patient seen and examined bedside. Plan for surgery with vascular surgery on August 29. Continue wound care for now. Osteomyelitis ruled out. Patient's chart, labs, images were reviewed and discussed with RN 08/22: No acute events overnight. Patient seen and examined bedside. Pending vascular surgery evaluation for possible toe amputations. Continue wound care for now. 08/21: Examined at bedside. Clinically stable. Rehab screen. Continue current plan otherwise. 08/20: Eval examined at bedside. No complaints, no distress. Rehab screen tomorrow. 08/19: Evaluated examined at bedside. Resting in bed did not appear in any distress. Continue therapy modalities 08/18: Evaluated examined at bedside. No major complaints. No distress. Screen for rehab on Saturday. 08/17: Evaluated examined at bedside. Resting in bed did not appear in any distress. Continue therapy for modalities 08/16: Patient seen and examined. He is resting with no apparent distress 08/15: Patient seen and examined. Jesica removed yesterday, incision site looks good 08/14/2021 Patient seen and examined Discussed with RN Chart reviewed I called the vascular surgery nurse practitioner to see if they could take the jesica out They said they would come later today to check on that (appreciate their help) 08/13/2019 Patient seen and examined He is up in the chair His nurse states he was able to walk to the bathroom twice His feet both still look necrotic Discussed with RN Chart reviewed 08/12/2021 Patient seen and examined Discussed with RN Chart reviewed Left foot still looks necrotic across the toes and the heel The right foot looks slightly better with slight healing of the heel but the toes are still quite necrotic 08/11/2021 Patient seen and examined Discussed with RN Chart reviewed Discussed with case management He took 8 steps yesterday 08/10/2021 Patient seen and examined exam discussed with case management Discussed with RN Chart reviewed No change clinically still wearing lower extremity protectors the toes are necrotic as are the heels 08/09: Seen sitting in chair today. He is wearing his postoperative shoes feels he is minimally stronger. Short of breath on exertion. 08/08: Seen and examined bedside. He is awaiting therapy evaluation today. Foot pain is well controlled. No worsening erythema or fevers but does have some drainage on the lateral left heel wound. No shortness of breath or chest pain. 08/04/2021 Patient seen and examined He is resting with no apparent distress Discussed with case management Chart reviewed Vascular surgery saw him again yesterday and is hoping to only have to do TMA in the future instead of BKA if we let his feett tissues try to recover for a few weeks Appreciate vascular input. 08/03/2021 Patient seen and examined Laying comfortably in bed with flat affect Bilateral heel protectors present; Dry gangrene present on bilateral toes and heels; Discussed with the wound care nurse Discussed with patient the need for vascular surgery input regarding foot surgery and potential bilateral BKA Chart reviewed Discussed with RN 08/02/2021 Patient seen and examined Discussed with RN Chart reviewed He is resting with no apparent distress 08/01/2021 Patient seen and examined He seems depressed and very weak He has heel protectors on both the toes that are exposed are extremely gangrenous and black and demarcated Discussed with the wound care nurse He explains that vascular surgery is awaiting the complete demarcation to finish up and then they will consider surgery at that time Chart reviewed Discussed with RN 07/31/2021 Patient seen and examined Discussed plan Chart reviewed Still feeling weak Mr Lambert is a 60-year-old male that presented 06/29/2021 via [facility] with decreased level of consciousness. Most of the history was obtained via EMS and patient's friend Reese [phone], who states that patient has been sick since about June 22 per Reese, he states that they both had cough cold headache sinus type pain. Per Reese's report patient is okay during the day and very alert and orientated and at night he has a decreased alertness. Patient is unable to help with exam when asked questions he does deny any past medical history, surgeries, or any other health conditions. Reese who is his roommate collaborates any information gotten from the patient. Accu-Chek per EMS was 250, room air sat in the room was 88 to 90%. 07/07: not much improved, about the same. cont current. PULM following. we have no clinimix, cont D5 fluid, 07/08: more alert, can try ST again, if able to sit up, still very weak 07/09: much more alert, bedside swallow of water ok, sits upright, much stronger, will try clears if able, ST to follow. toes are worsening, now black, hannah consult podiatry to follow, 07/10: More alert. Working with speech and swallowing today. Off O2. Less confused. Bilateral toe ulcers assessed by podiatry today. 07/11: More alert, eating. Arterial Doppler was left popliteal and severe distal disease bilaterally. Still has a little bit of a cough. Less confused today. 07/12: Eating reasonably well. Tentative plans for angiogram for consideration of limb salvage bilateral feet tomorrow. Discussed with cardiology. He will need significant follow-up care likely eventual amputations. 07/13: N.p.o. for angiogram today with bilateral SFA occlusive disease and left popliteal disease with left posterior tibial artery with some flow otherwise occlusive disease per cardiology. Discussed vascular surgery consultation for consideration of definitive revascularization with likely bilateral transmetatarsal amputations. Still with a little bit of a cough. Shortness of breath 07/14: Seen bedside. Having some pain in his bilateral extremities. Shortness of breath improved still with little bit of cough. Eating again. Amenable to revascularization and likely surgical debridement next week. Increasing thromboprophylaxis 07/15: Seen bedside. Not hypoxic. Cough is improving. He feels he is mental status is improved but he is definitely still mentating slowly. Complains of foot pain. He is contemplating surgical options but is okay with what ever the surgeons to choose for his likely lower extremity bypass tentatively planned for 07/17/202107/16: Bilateral foot pain still with cough but improving. Still is contemplating surgical options. 07/17: Patient off floor for surgery today. Chart evaluated. s/p bilateral pop/tibial thrombectomies with patch angioplasty. s/p RLE hematoma evacuation 07/18: Patient did and examined at bedside. He is postop day 1 from bilateral thrombectomies yesterday. Looks like he may need more surgery prior to discharge. Continue heparin drip. Suspect leukocytosis today secondary to surgery. Continue current. 07/19: Patient evaluated examined at bedside. He was working with physical therapy when seen. Continuing heparin drip. Recheck CBC today. Cardiology following vascular following. Will likely need further surgery prior to discharge. 07/20: Seen at bedside. Having RLE pain and had Hgb drop overnight. Will transfuse. Stop heparin drip for now. Seen by vascular, hematoma evacuation or dered. serial Hgb. 07/21: Patient evaluated examined at bedside. Hemoglobin improved up to 8.1 today. Underwent hematoma evacuation yesterday. Planning for further intervention next week. 07/22: Examine and evaluated at bedside. Resting in bed no major complaints. Hemoglobin stable. Appreciate Cardiology resuming heparin. Further intervention next week. 07/23: Seen at bedside no motor complaints. Hemoglobin still stable. No major clinical changes for today. Intervention this coming week. 07/24: Seen bedside. Has good appetite no cough shortness of breath or chest pain. Left heel with more gangrenous changes left feet. Plan for n.p.o. after midnight 07/25: Seen bedside. N.p.o. for bilateral foot debridement today. K3. Glucose low 100s. Has a friend visiting today. No chest pain or shortness of breath. Pain controlled. 07/26: Changes in the off heparin drip to Xarelto. No significant anticoagulation for 3 months then can start progressive ambulation with physical therapy with postop shoe per vascular surgery recommendations. No shortness of breath or chest pain today just very weak. 2: Up to chair today, has more bilateral foot pain, now wearing post -op shoes. No SOB or cough. He is asking to get back into bed. Encouraged to continue trying to get on his feet. 07/28: In bed. Foot pain is improved from yesterday. No shortness of breath no cough. Still very weak even weak eating today. 07/29: Seen in bed. No foot pain today. No shortness of breath or cough. Still weak eating well. Not out of bed today. Glucose low 100s. 07/30: Seen in bed. Pain-free eating breakfast in bed. Still feeling weak has been up on his foot the last day. Glucose well controlled. Vitals/I&O Vitals/I&O: Vital Signs Date Time Temp Pulse Resp B/P (MAP) Pulse Ox O2 Delivery O2 Flow Rate FiO2 08/29/21 06:52 97.9 98 16 126/78 95 Room Air 97.9 I & O 08/28/21 08/28/21 08/29/21 15:00 23:00 07:00 Intake Total 150 ml 0 ml Output Total 500 ml Balance 150 ml -500 ml Physical Exam Physical Exam: lethargic and weak General: Alert, Oriented X3, Cooperative, No acute distress, Other (Resting) Heart: Regular rate Lungs: Clear Abdomen: Normal bowel sounds Extremities: Other (Severely black toes please see the pictures) Skin: Other (No further hematoma accumulation) Labs Labs: Laboratory Tests Test 08/28/21 11:20 08/28/21 16:39 08/28/21 20:39 08/29/21 04:30 Glucose (Fingerstick) 132 mg/dL (70-99) 127 mg/dL (70-99) 138 mg/dL (70-99) Prothrombin Time 15.3 SEC (11.7-14.0) Prothromb Time International Ratio 1.2 (0.8-1.1) Assessment and Plan Assessmemt and Plan Problems Medical Problems: (1) Dehydration Status: Acute (2) Mental status alteration Status: Acute (3) Pneumonia Status: Acute Comment Review of Relevant I have reviewed the following items amanda (where applicable) has been applied. Medications: Current Medications Medications (Trade) Dose Ordered Sig/Vicente Route PRN Reason Start Time Stop Time Status Last Admin Dose Admin Cefazolin Sodium 1 gm/Sodium Chloride 500 ml @ 500 mls/hr 1X ONCE IRR 08/29/21 06:00 08/29/21 06:59 DC 08/29/21 07:39 Ringer's Solution 1,000 ml @ 30 mls/hr Q24H IV 08/29/21 06:00 08/29/21 17:59 08/29/21 07:06 Justifications for Admission Other Justification COVID-19 positive test (U07.1, COVID-19) with Acute Pneumonia (J12.89, Other viral pneumonia) (If respiratory failure or sepsis present, add as separate assessment) SIMONE COOPER MD Aug 29, 2021 08:09
[2021-08-29] MEDS: METOPROLOL TART IMMED RELEASE 25 MG TABLET. PO SCH ×2 (09:00→21:11)
[2021-08-29] MEDS: THIAMINE 100 MG TABLET. PO SCH (09:00)
[2021-08-29] MEDS: ASCORBIC ACID 500 MG TABLET PO SCH (09:00)
[2021-08-29] MEDS: NYSTATIN TOPICAL POWDER 15GM BOTTLE. TP SCH ×2 (09:00→21:00)
[2021-08-29] MEDS: ZINC SULFATE 220 MG CAPSULE. PO SCH (09:00)
--- NOTE | 2021-08-29 09:17 | PDOC4 ---
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 Partial amputation of right first through fifth digit 2. left TMA 3. bilateral heel debridement Primary Surgeon: Anna Lindsey DO [employer] Specialist: Eveline Mendoza APRN Anesthesia: General Estimated blood loss: 20 cc Complications: None Implants: None Drains: None Specimens removed: Culture swab of left foot Indications: Mr. Whelan is a 61-year-old male with recent thrombosis of his bilateral popliteal arteries. He underwent bilateral popliteal cutdown and thrombectomy in June. With evidence of gangrene of his bilateral toes, however these have been allowed to demarcate. They have fully demarcated now. He presents for evaluation for partial toe amputation versus TMA bilaterally. He also has evidence of gangrene of his bilateral heels which requires debridement. He has palpable pulses bilaterally. Risks, benefits, and alternatives to procedure were discussed in detail with the patient and his frie nd who were understanding and wished to proceed with surgery. Specific risks discussed included poor wound healing, infection, bleeding, cardiopulmonary compromise, and . Description of procedure: After informed consent was obtained, the patient was brought to the operating room and placed in supine position on the table. General anesthesia was induced. A timeout was performed confirming the correct patient, procedure, allergies, antibiotics. Patient was then prepped and draped in usual sterile fashion with bilateral feet exposed. I evaluated the right foot first and felt that his toes would be amenable to partial amputation rather than TMA. I performed partial amputation of the right first through fifth digits. I incised on the areas of gangrene in elliptical fashion on each digit and mobilized the soft tissue from the bone proximally. I then divided the bones with a bone cutter. A rongeur was used to carry the bony debridement back further into the base of the wound. Once healthy tissue had been reached and the bone was debrided back, we cut the tendons to each digit. The wounds were then irrigated and hemostasis achieved. The toes were closed with a 3-0 nylon on the skin. I then turned my attention to the left foot. The left foot had more ex tensive gangrene at the base of the digits and there was erythema on the dorsal and plantar aspect proximal to the area of gangrene. There was also malodor and some evidence of drainage. I therefore determined that this would be better treated with a TMA. I incised along the dorsal aspect of the metatarsal heads and at the proximal aspect of the gangrene on the plantar surface. The fat pad on the plantar surface was preserved and the tissue mobilized off the bone up to the metatarsal heads and just above. The periostium was then stripped and the metartarsals were divided with a bone saw and passed off the field. The wound was then inspected and noted to bleed well. The tendons were cut and the sesmoid bones removed. The wound was then thoroughly irrigated and hemostasis was achieved. The wound was then closed in layers utilizing a 3-0 vicryl and a 3-0 nylon. We then turned our attention to the bilateral heels. The heels were noted to have full-thickness gangrene bilaterally. This was debrided with sharp ex cisional debridement of skin and subcutaneous tissue with a scalpel to an area of 3 x 3 cm bilaterally. There was some fat necrosis on the right heel that went down near the level of the bone. However there was a thin layer of tissue overlying the bone of the calcaneus at the site. The wounds were thoroughly irrigated and hemostasis was achieved. The wounds were then dressed with sterile dressings. Patient tolerated the procedure well, was extubated in the OR, and transferred to the recovery area in stable condition. All sponge and needle counts reported as correct at the end the case. I was present and scrubbed throughout the duration of the procedure. DO EDUARD Ndiaye KARA M DO Aug 29, 2021 09:17
[2021-08-29] MEDS: fentaNYL PF VIAL 100 MCG/2 ML VIAL IVP PRN ×2 (09:22→09:33)
[2021-08-29] MEDS ORDERED: MORPHINE SULFATE 2 MG/ML INJ. ONE (09:50)
[2021-08-29] MEDS: MORPHINE SULFATE 2 MG/ML INJ. IVP PRN ×2 (10:00→10:10)
--- NOTE | 2021-08-29 10:40 | NUR ---
Patient arrived back to unit via bed from PACU
[2021-08-29] MEDS: oxyCODONE/APAP 5/325 1 TAB TABLET PO PRN ×3 (10:47→19:54)
[2021-08-29] MEDS: ceFAZolin SODIUM IV Push 1 GM VIAL. IVP SCH ×2 (15:08→23:00)
[2021-08-29] MEDS: RIVAROXABAN 10 MG TABLET. PO SCH ×2 (17:00→17:11)
[2021-08-29] MEDS: ATORVASTATIN CALCIUM 20 MG TABLET PO SCH (21:11)
[2021-08-30 03:00] VITALS: BP 92/58
[2021-08-30] MEDS: ceFAZolin SODIUM IV Push 1 GM VIAL. IVP SCH (06:34)
[2021-08-30 07:47] VITALS: BP 113/68
[2021-08-30] MEDS: METOPROLOL TART IMMED RELEASE 25 MG TABLET. PO SCH ×2 (07:48→21:42)
[2021-08-30] MEDS: INSULIN LISPRO 300 UNITS/3 ML VIAL. SQ SCH ×3 (07:48→16:54)
[2021-08-30] MEDS: PANTOPRAZOLE 40 MG TABLET.DR. PO SCH (07:51)
[2021-08-30] MEDS: oxyCODONE/APAP 5/325 1 TAB TABLET PO PRN ×4 (07:51→21:44)
[2021-08-30] MEDS: ASPIRIN CHEWABLE 81 MG TABLET. PO SCH (07:51)
[2021-08-30] MEDS: ASCORBIC ACID 500 MG TABLET PO SCH (07:51)
[2021-08-30] MEDS: THIAMINE 100 MG TABLET. PO SCH (07:51)
[2021-08-30] MEDS: ZINC SULFATE 220 MG CAPSULE. PO SCH (07:51)
[2021-08-30] MEDS: NYSTATIN TOPICAL POWDER 15GM BOTTLE. TP SCH ×2 (07:53→21:00)
--- NOTE | 2021-08-30 08:51 | PDOC ---
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 s/p bilateral pop/tibial thrombectomies with patch angioplasty s/p RLE hematoma evacuation Metabolic cephalopathy Probable Covid toes IVORY Lactic acidosis Dysphagia Malnutrition Heel erythema Poor nail care Severe malnutrition History of Present Illness History of Present Illness 08/30/2021: Patient seen and examined at bedside. POD #1, s/p partial amputation of right first through fifth digit, left TMA, bilateral heel debridement. He is resting in bed comfortably, but does report some residual bilateral feet pain that is controlled with medication. States he has been instructed to rest his heels and has not yet worked with PT/OT. Perhaps we can get him to do some exercises that the head of the bed today. Denies fever, nausea, or vomiting. 08/29 Evaluated examined at bedside. Some lower extremity pain. Eager for surgery today. Continue current plan. will follow-up with the patient again after surgery 08/28/2021: Afebrile. Patient denies chest pain or shortness of breath. He reports some left lower extremity pain that is controlled with medications. Reportedly has plans for surgical amputation of left toes tomorrow. 08/26/2021 No acute events overnight. Patient seen examined bedside. No complaints at this time. Pain is well controlled. Patient is ready for surgery on Friday 08/25: Seen bedside. Able to get up. Pain is well controlled. No chest pain or shortness of breath. Continue therapy modalities. Discussed with RN. 08/24: Seen bedside. Has been working with therapy feels is getting stronger. He tells me he thinks he is getting surgery tentatively on 08/29/2021 and will have "most of my toes cut off". 08/23: No acute events overnight. Patient seen and examined bedside. Plan for surgery with vascular surgery on August 29. Continue wound care for now. Osteomyelitis ruled out. Patient's chart, labs, images were reviewed and discussed with RN 08/22: No acute events overnight. Patient seen and examined bedside. Pending vascular surgery evaluation for possible toe amputations. Continue wound care for now. 08/21: Examined at bedside. Clinically stable. Rehab screen. Continue current plan otherwise. 08/20: Eval examined at bedside. No complaints, no distress. Rehab screen tomorrow. 08/19: Evaluated examined at bedside. Resting in bed did not appear in any distress. Continue therapy modalities 08/18: Evaluated examined at bedside. No major complaints. No distress. Screen for rehab on Saturday. 08/17: Evaluated examined at bedside. Resting in bed did not appear in any distress. Continue therapy for modalities 08/16: Patient seen and examined. He is resting with no apparent distress 08/15: Patient seen and examined. Jesica removed yesterday, incision site looks good 08/14/2021 Patient seen and examined Discussed with RN Chart reviewed I called the vascular surgery nurse practitioner to see if they could take the jesica out They said they would come later today to check on that (appreciate their help) 08/13/2019 Patient seen and examined He is up in the chair His nurse states he was able to walk to the bathroom twice His feet both still look necrotic Discussed with RN Chart reviewed 08/12/2021 Patient seen and examined Discussed with RN Chart reviewed Left foot still looks necrotic across the toes and the heel The right foot looks slightly better with slight healing of the heel but the toes are still quite necrotic 08/11/2021 Patient seen and examined Discussed with RN Chart reviewed Discussed with case management He took 8 steps yesterday 08/10/2021 Patient seen and examined exam discussed with case management Discussed with RN Chart reviewed No change clinically still wearing lower extremity protectors the toes are necrotic as are the heels 08/09: Seen sitting in chair today. He is wearing his postoperative shoes feels he is minimally stronger. Short of breath on exertion. 08/08: Seen and examined bedside. He is awaiting therapy evaluation today. Foot pain is well controlled. No worsening erythema or fevers but does have some arleen inage on the lateral left heel wound. No shortness of breath or chest pain. 08/04/2021 Patient seen and examined He is resting with no apparent distress Discussed with case management Chart reviewed Vascular surgery saw him again yesterday and is hoping to only have to do TMA in the future instead of BKA if we let his feett tissues try to recover for a few weeks Appreciate vascular input. 08/03/2021 Patient seen and examined Laying comfortably in bed with flat affect Bilateral heel protectors present; Dry gangrene present on bilateral toes and heels; Discussed with the wound care nurse Discussed with patient the need for vascular surgery input regarding foot surgery and potential bilateral BKA Chart reviewed Discussed with RN 08/02/2021 Patient seen and examined Discussed with RN Chart reviewed He is resting with no apparent distress 08/01/2021 Patient seen and examined He seems depressed and very weak He has heel protectors on both the toes that are exposed are extremely gangrenous and black and demarcated Discussed with the wound care nurse He explains that vascular surgery is awaiting the complete demarcation to finish up and then they will consider surgery at that time Chart reviewed Discussed with RN 07/31/2021 Patient seen and examined Discussed plan Chart reviewed Still feeling weak Mr Labmert is a 60-year-old male that presented 06/29/2021 via [facility] with decreased level of consciousness. Most of the history was obtained via EMS and patient's friend eRese [phone], who states that patient has been sick since about June 22 per Reese, he states that they both had cough cold headache sinus type pain. Per Reese's report patient is okay during the day and very alert and orientated and at night he has a decreased alertness. Patient is unable to help with exam when asked questions he does deny any past medical history, surgeries, or any other health conditions. Reese who is his roommate collaborates any information gotten from the patient. Accu-Chek per EMS was 250, room air sat in the room was 88 to 90%. 07/07: not much improved, about the same. cont current. PULM following. we have no clinimix, cont D5 fluid, 07/08: more alert, can try ST again, if able to sit up, still very weak 07/09: much more alert, bedside swallow of water ok, sits upright, much stronger, will try clears if able, ST to follow. toes are worsening, now black, hannah consult podiatry to follow, 07/10: More alert. Working with speech and swallowing today. Off O2. Less confused. Bilateral toe ulcers assessed by podiatry today. 07/11: More alert, eating. Arterial Doppler was left popliteal and severe distal disease bilaterally. Still has a little bit of a cough. Less confused today. 07/12: Eating reasonably well. Tentative plans for angiogram for consideration of limb salvage bilateral feet tomorrow. Discussed with cardiology. He will need significant follow-up care likely eventual amputations. 07/13: N.p.o. for angiogram today with bilateral SFA occlusive disease and left popliteal disease with left posterior tibial artery with some flow otherwise occlusive disease per cardiology. Discussed vascular surgery consultation for consideration of definitive revascularization with likely bilateral transmetatarsal amputations. Still with a little bit of a cough. Shortness of breath 07/14: Seen bedside. Having some pain in his bilateral extremities. Shortness of breath improved still with little bit of cough. Eating again. Amenable to revascularization and likely surgical debridement next week. Increasing thro mboprophylaxis 07/15: Seen bedside. Not hypoxic. Cough is improving. He feels he is mental status is improved but he is definitely still mentating slowly. Complains of foot pain. He is contemplating surgical options but is okay with what ever the surgeons to choose for his likely lower extremity bypass tentatively planned for 07/17/202107/16: Bilateral foot pain still with cough but improving. Still is contemplating surgical options. 07/17: Patient off floor for surgery today. Chart evaluated. s/p bilateral pop/tibial thrombectomies with patch angioplasty. s/p RLE hematoma evacuation 07/18: Patient did and examined at bedside. He is postop day 1 from bilateral thrombectomies yesterday. Looks like he may need more surgery prior to discharge. Continue heparin drip. Suspect leukocytosis today secondary to surgery. Continue current. 07/19: Patient evaluated examined at bedside. He was working with physical therapy when seen. Continuing heparin drip. Recheck CBC today. Cardiology following vascular following. Will likely need further surgery prior to discharge. 07/20: Seen at bedside. Having RLE pain and had Hgb drop overnight. Will transfuse. Stop heparin drip for now. Seen by vascular, hematoma evacuation ordered. serial Hgb. 07/21: Patient evaluated examined at bedside. Hemoglobin improved up to 8.1 today. Underwent hematoma evacuation yesterday. Planning for further i ntervention next week. 07/22: Examine and evaluated at bedside. Resting in bed no major complaints. Hemoglobin stable. Appreciate Cardiology resuming heparin. Further intervention next week. 07/23: Seen at bedside no motor complaints. Hemoglobin still stable. No major clinical changes for today. Intervention this coming week. 07/24: Seen bedside. Has good appetite no cough shortness of breath or chest pain. Left heel with more gangrenous changes left feet. Plan for n.p.o. after midnight 07/25: Seen bedside. N.p.o. for bilateral foot debridement today. K3. Glucose low 100s. Has a friend visiting today. No chest pain or shortness of breath. Pain controlled. 07/26: Changes in the off heparin drip to Xarelto. No significant anticoagulation for 3 months then can start progressive ambulation with physical therapy with postop shoe per vascular surgery recommendations. No shortness of breath or chest pain today just very weak. 07/27: Up to chair today, has more bilateral foot pain, now wearing post -op meagan es. No SOB or cough. He is asking to get back into bed. Encouraged to continue trying to get on his feet. 07/28: In bed. Foot pain is improved from yesterday. No shortness of breath no cough. Still very weak even weak eating today. 07/29: Seen in bed. No foot pain today. No shortness of breath or cough. Still weak eating well. Not out of bed today. Glucose low 100s. 07/30: Seen in bed. Pain-free eating breakfast in bed. Still feeling weak has been up on his foot the last day. Glucose well controlled. Vitals/I&O Vitals/I&O: Vital Signs Date Time Temp Pulse Resp B/P (MAP) Pulse Ox O2 Delivery O2 Flow Rate FiO2 08/30/21 07:51 97 Room Air 3.0 08/30/21 07:47 98.7 70 19 113/68 (83) 98.7 I & O 08/29/21 08/29/21 08/30/21 15:00 23:00 07:00 Intake Total 900 ml 0 ml Output Total 320 ml 150 ml 150 ml Balance 580 ml -150 ml -150 ml Physical Exam Physical Exam: lethargic and weak General: Alert, Oriented X3, Cooperative, No acute distress, Other (Resting) Heart: Regular rate Lungs: Clear Abdomen: Normal bowel sounds Extremities: Other (Bilateral feet wrapped in bandage with dressings c/d/i) Skin: Other (No further hematoma accumulation) Labs Labs: Laboratory Tests Test 08/29/21 10:31 08/29/21 17:05 08/29/21 20:37 08/30/21 07:46 Glucose (Fingerstick) 124 mg/dL (70-99) 136 mg/dL (70-99) 143 mg/dL (70-99) 92 mg/dL (70-99) Assessment and Plan Assessmemt and Plan Problems Medical Problems: (1) Dehydration Status: Acute (2) Mental status alteration Status: Acute (3) Pneumonia Status: Acute Comment Review of Relevant I have reviewed the following items amanda (where applicable) has been applied. Medications: Current Medications Medications (Trade) Dose Ordered Sig/Vicente Route PRN Reason Start Time Stop Time Status Last Admin Dose Admin Cefazolin Sodium (Ancef) 1 gm Q8H IVP 08/29/21 15:00 08/30/21 07:01 DC 08/30/21 06:34 Justifications for Admission Other Justification COVID-19 positive test (U07.1, COVID-19) with Acute Pneumonia (J12.89, Other viral pneumonia) (If respiratory failure or sepsis present, add as separate assessment) TIFFANY HERNANDEZ MD Aug 30, 2021 08:51
[2021-08-30 10:50] VITALS: BP 99/66
--- NOTE | 2021-08-30 14:43 | PDOC ---
Provider Note Date of Service: DATE: 08/30/21 TIME: 14:39 Provider Note Provider Note Vascular S: Patient resting in bed, complains of mild pain in feet. O:Awake and alert VSS, afebrile Right foot toe amputation sites all dry and intact, well approximated, heel wound bed pink with some fatty tissue Left foot TMA incision dry and intact, well approximated, heel wound pink, slight bleeding. A/P: A/P: 1. 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 2. History of COVID pneumonia. 3. 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 s/p bilateral pop/tibial thrombectomies with patch angioplasty 07/17/2021. Feet are well perfused. s/p RLE hematoma evacuation 07/20/2021 s/p Partial amputation of right first through fifth digit, left TMA, bilateral heel debridement He is doing well post procedures. - Continue anticoagulation - Keep incisions clean and dry, wound vac to heels - Continue to off-load heels while in bed, needs to be non-weight bearing bilateral feet. Justicifation of Admission Dx: Justifications for Admission: Justification of Admission Dx: Yes FAITH YUNG SKID ADZER Aug 30, 2021 14:42
[2021-08-30 15:00] VITALS: BP 100/69
--- NOTE | 2021-08-30 16:36 | NUR ---
Wound Care Wound Type/Assessment: Pt seen for wound care follow up regarding right and left heel PU's. Patient s/p surgical amputation of right and left toes due to possible covid toes. Patient also underwent debridement of left and right heels with vascular. Orders for wound vac placement to bilateral heels. the surgical amputation sites on bilateral feet are well approximated with sutures, cleansed with chloraprep and redressed using contact layer, ABD pads and kerilx. The heels are both granulated with adipose tissue exposed and show good signs of healing well with wound vac. Treatment Recommendations/Plan: skin prepped and one piece of churchill foam placed into each heel and Y connected and a good seal maintained at 125mmHg continuos. Education provided: to pt re: Patient educated on wound care, wound vac therapy and dressing changes and PU prevention. Offloading surface/device: Patient requesting heel medix instead of the Rooke boots at this time. Heel medix applied. Recommended Referrals/Tests: vascular and wound care following. Discharge Recommendations for dressings: No other wounds noted. Bed lowered and call light in reach. Wound care will follow up on 09/01/21 for next wound vac dressing change.
[2021-08-30] MEDS: RIVAROXABAN 10 MG TABLET. PO SCH (17:26)
[2021-08-30 19:00] VITALS: BP 111/70
[2021-08-30] MEDS: ATORVASTATIN CALCIUM 20 MG TABLET PO SCH (21:42)
[2021-08-30 23:00] VITALS: BP 113/68
[2021-08-31 03:00] VITALS: BP 100/62
[2021-08-31 07:00] VITALS: BP 110/65
[2021-08-31] MEDS: INSULIN LISPRO 300 UNITS/3 ML VIAL. SQ SCH ×3 (08:00→17:00)
[2021-08-31] MEDS: METOPROLOL TART IMMED RELEASE 25 MG TABLET. PO SCH ×2 (08:36→21:33)
[2021-08-31] MEDS: ZINC SULFATE 220 MG CAPSULE. PO SCH (08:36)
[2021-08-31] MEDS: ASCORBIC ACID 500 MG TABLET PO SCH (08:36)
[2021-08-31] MEDS: THIAMINE 100 MG TABLET. PO SCH (08:36)
[2021-08-31] MEDS: PANTOPRAZOLE 40 MG TABLET.DR. PO SCH (08:36)
[2021-08-31] MEDS: ASPIRIN CHEWABLE 81 MG TABLET. PO SCH (08:36)
[2021-08-31] MEDS: oxyCODONE/APAP 5/325 1 TAB TABLET PO PRN ×4 (08:37→22:09)
[2021-08-31] MEDS: NYSTATIN TOPICAL POWDER 15GM BOTTLE. TP SCH ×2 (08:43→21:00)
[2021-08-31 11:00] VITALS: BP 125/83
--- NOTE | 2021-08-31 12:48 | PDOC ---
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 s/p bilateral pop/tibial thrombectomies with patch angioplasty s/p RLE hematoma evacuation Metabolic cephalopathy Probable Covid toes IVORY Lactic acidosis Dysphagia Malnutrition Heel erythema Poor nail care Severe malnutrition History of Present Illness History of Present Illness 08/31 Eval and examined at bedside. POD2. Pain well controlled. PT/OT. Vascular following. 08/30/2021: Patient seen and examined at bedside. POD #1, s/p partial amputation of right first through fifth digit, left TMA, bilateral heel debridement. He is resting in bed comfortably, but does report some residual bilateral feet pain that is controlled with medication. States he has been instructed to rest his heels and has not yet worked with PT/OT. Perhaps we can get him to do some exercises that the head of the bed today. Denies fever, nausea, or vomiting. 08/29 Evaluated examined at bedside. Some lower extremity pain. Eager for surgery today. Continue current plan. will follow-up with the patient again after surgery 08/28/2021: Afebrile. Patient denies chest pain or shortness of breath. He reports some left lower extremity pain that is controlled with medications. Reportedly has plans for surgical amputation of left toes tomorrow. 08/26/2021 No acute events overnight. Patient seen examined bedside. No complaints at this time. Pain is well controlled. Patient is ready for surgery on Friday 08/25: Seen bedside. Able to get up. Pain is well controlled. No chest pain or shortness of breath. Continue therapy modalities. Discussed with RN. 08/24: Seen bedside. Has been working with therapy feels is getting stronger. He tells me he thinks he is getting surgery tentatively on 08/29/2021 and will have "most of my toes cut off". 08/23: No acute events overnight. Patient seen and examined bedside. Plan for surgery with vascular surgery on August 29. Continue wound care for now. Osteomyelitis ruled out. Patient's chart, labs, images were reviewed and discussed with RN 08/22: No acute events overnight. Patient seen and examined bedside. Pending vascular surgery evaluation for possible toe amputations. Continue wound care for now. 08/21: Examined at bedside. Clinically stable. Rehab screen. Continue current plan otherwise. 08/20: Eval examined at bedside. No complaints, no distress. Rehab screen tomorrow. 08/19: Evaluated examined at bedside. Resting in bed did not appear in any distress. Continue therapy modalities 08/18: Evaluated examined at bedside. No major complaints. No distress. Screen for rehab on Saturday. 08/17: Evaluated examined at bedside. Resting in bed did not appear in any di stress. Continue therapy for modalities 08/16: Patient seen and examined. He is resting with no apparent distress 08/15: Patient seen and examined. Jesica removed yesterday, incision site looks good 08/14/2021 Patient seen and examined Discussed with RN Chart reviewed I called the vascular surgery nurse practitioner to see if they could take the jesica out They said they would come later today to check on that (appreciate their help) 08/13/2019 Patient seen and examined He is up in the chair His nurse states he was able to walk to the bathroom twice His feet both still look necrotic Discussed with RN Chart reviewed 08/12/2021 Patient seen and examined Discussed with RN Chart reviewed Left foot still looks necrotic across the toes and the heel The right foot looks slightly better with slight healing of the heel but the toes are still quite necrotic 08/11/2021 Patient seen and examined Discussed with RN Chart reviewed Discussed with case management He took 8 steps yesterday 08/10/2021 Patient seen and examined exam discussed with case management Discussed with RN Chart reviewed No change clinically still wearing lower extremity protectors the toes are necrotic as are the heels 08/09: Seen sitting in chair today. He is wearing his postoperative shoes feels he is minimally stronger. Short of breath on exertion. 08/08: Seen and examined bedside. He is awaiting therapy evaluation today. Foot pain is well controlled. No worsening erythema or fevers but does have some drainage on the lateral left heel wound. No shortness of breath or chest pain. 08/04/2021 Patient seen and examined He is resting with no apparent distress Discussed with case management Chart reviewed Vascular surgery saw him again yesterday and is hoping to only have to do TMA in the future instead of BKA if we let his feett tissues try to recover for a few weeks Appreciate vascular input. 08/03/2021 Patient seen and examined Laying comfortably in bed with flat affect Bilateral heel protectors present; Dry gangrene present on bilateral toes and heels; Discussed with the wound care nurse Discussed with patient the need for vascular surgery input regarding foot surgery and potential bilateral BKA Chart reviewed Discussed with RN 08/02/2021 Patient seen and examined Discussed with RN Chart reviewed He is resting with no apparent distress 08/01/2021 Patient seen and examined He seems depressed and very weak He has heel protectors on both the toes that are exposed are extremely gangrenous and black and demarcated Discussed with the wound care nurse He explains that vascular surgery is awaiting the complete demarcation to finish up and then they will consider surgery at that time Chart reviewed Discussed with RN 07/31/2021 Patient seen and examined Discussed plan Chart reviewed Still feeling weak Mr Lambert is a 60-year-old male that presented 06/29/2021 via [facility] with decreased level of consciousness. Most of the history was obtained via EMS and patient's friend Reese [phone], who states that patient has been sick since about June 22 per Reese, he states that they both had cough cold headache sinus type pain. Per Reese's report patient is okay during the day and very alert and orientated and at night he has a decreased alertness. Patient is unable to help with exam when asked questions he does deny any past medical history, surgeries, or any other health conditions. Reese who is his roommate collaborates any information gotten from the patient. Accu-Chek per EMS was 250, room air sat in the room was 88 to 90%. 07/07: not much improved, about the same. cont current. PULM following. we have no clinimix, cont D5 fluid, 07/08: more alert, can try ST again, if able to sit up, still very weak 07/09: much more alert, bedside swallow of water ok, sits upright, much stro nger, will try clears if able, ST to follow. toes are worsening, now black, hannah consult podiatry to follow, 07/10: More alert. Working with speech and swallowing today. Off O2. Less confused. Bilateral toe ulcers assessed by podiatry today. 07/11: More alert, eating. Arterial Doppler was left popliteal and severe distal disease bilaterally. Still has a little bit of a cough. Less confused today. 07/12: Eating reasonably well. Tentative plans for angiogram for consideration of limb salvage bilateral feet tomorrow. Discussed with cardiology. He will need significant follow-up care likely eventual amputations. 07/13: N.p.o. for angiogram today with bilateral SFA occlusive disease and left popliteal disease with left posterior tibial artery with some flow otherwise occlusive disease per cardiology. Discussed vascular surgery consultation for consideration of definitive revascularization with likely bilateral transmetatarsal amputations. Still with a little bit of a cough. Shortness of breath 07/14: Seen bedside. Having some pain in his bilateral extremities. Shortness of breath improved still with little bit of cough. Eating again. Amenable to revascularization and likely surgical debridement next week. Increasing thromboprophylaxis 07/15: Seen bedside. Not hypoxic. Cough is improving. He feels he is mental status is improved but he is definitely still mentating slowly. Complains of foot pain. He is contemplating surgical options but is okay with what ever the surgeons to choose for his likely lower extremity bypass tentatively planned for 07/17/202107/16: Bilateral foot pain still with cough but improving. Still is brisa mplating surgical options. 07/17: Patient off floor for surgery today. Chart evaluated. s/p bilateral pop/tibial thrombectomies with patch angioplasty. s/p RLE hematoma evacuation 07/18: Patient did and examined at bedside. He is postop day 1 from bilateral thrombectomies yesterday. Looks like he may need more surgery prior to discharge. Continue heparin drip. Suspect leukocytosis today secondary to surgery. Continue current. 07/19: Patient evaluated examined at bedside. He was working with [facility] when seen. Continuing heparin drip. Recheck CBC today. Cardiology following vascular following. Will likely need further surgery prior to discharge. 07/20: Seen at bedside. Having RLE pain and had Hgb drop overnight. Will transfuse. Stop heparin drip for now. Seen by vascular, hematoma evacuation ordered. serial Hgb. 07/21: Patient evaluated examined at bedside. Hemoglobin improved up to 8.1 today. Underwent hematoma evacuation yesterday. Planning for further intervention next week. 07/22: Examine and evaluated at bedside. Resting in bed no major complaints. Hemoglobin stable. Appreciate Cardiology resuming heparin. Further intervention next week. 07/23: Seen at bedside no motor complaints. Hemoglobin still stable. No major clinical changes for today. Intervention this coming week. 07/24: Seen bedside. Has good appetite no cough shortness of breath or chest rené n. Left heel with more gangrenous changes left feet. Plan for n.p.o. after midnight 07/25: Seen bedside. N.p.o. for bilateral foot debridement today. K3. Glucose low 100s. Has a friend visiting today. No chest pain or shortness of breath. Pain controlled. 07/26: Changes in the off heparin drip to Xarelto. No significant anticoagulation for 3 months then can start progressive ambulation with physical therapy with postop shoe per vascular surgery recommendations. No shortness of breath or chest pain today just very weak. 07/27: Up to chair today, has more bilateral foot pain, now wearing post -op shoes. No SOB or cough. He is asking to get back into bed. Encouraged to continue trying to get on his feet. 07/28: In bed. Foot pain is improved from yesterday. No shortness of breath no cough. Still very weak even weak eating today. 07/29: Seen in bed. No foot pain today. No shortness of breath or cough. Still weak eating well. Not out of bed today. Glucose low 100s. 07/30: Seen in bed. Pain-free eating breakfast in bed. Still feeling weak has been up on his foot the last day. Glucose well controlled. Vitals/I&O Vitals/I&O: Vital Signs Date Time Temp Pulse Resp B/P (MAP) Pulse Ox O2 Delivery O2 Flow Rate FiO2 08/31/21 11:00 98.6 101 16 125/83 (97) 96 98.6 08/31/21 10:34 Room Air 3.0 I & O 08/30/21 08/30/21 08/31/21 15:00 23:00 07:00 Intake Total 300 ml 200 ml Output Total 300 ml 250 ml 200 ml Balance -300 ml 50 ml 0 ml Physical Exam Physical Exam: lethargic and weak General: Alert, Oriented X3, Cooperative, No acute distress, Other (Resting) Heart: Regular rate Lungs: Clear Abdomen: Normal bowel sounds Extremities: Other (Bilateral feet wrapped in bandage with dressings c/d/i) Skin: Other (No further hematoma accumulation) Labs Labs: Laboratory Tests Test 08/30/21 16:47 08/30/21 21:06 08/31/21 08:04 08/31/21 11:36 Glucose (Fingerstick) 139 mg/dL (70-99) 121 mg/dL (70-99) 92 mg/dL (70-99) 116 mg/dL (70-99) Assessment and Plan Assessmemt and Plan Problems Medical Problems: (1) Dehydration Status: Acute (2) Mental status alteration Status: Acute (3) Pneumonia Status: Acute Comment Review of Relevant I have reviewed the following items amanda (where applicable) has been applied. Justifications for Admission Other Justification COVID-19 positive test (U07.1, COVID-19) with Acute Pneumonia (J12.89, Other viral pneumonia) (If respiratory failure or sepsis present, add as separate assessment) SIMONE COOPER MD Aug 31, 2021 12:48
[2021-08-31 15:00] VITALS: BP 115/75
[2021-08-31] MEDS: RIVAROXABAN 10 MG TABLET. PO SCH (18:08)
[2021-08-31 19:00] VITALS: BP 106/64
[2021-08-31] MEDS: ATORVASTATIN CALCIUM 20 MG TABLET PO SCH (21:33)
[2021-08-31 23:00] VITALS: BP 96/65
[2021-09-01 03:00] VITALS: BP 94/58
[2021-09-01 07:00] VITALS: BP 118/65
[2021-09-01] MEDS: INSULIN LISPRO 300 UNITS/3 ML VIAL. SQ SCH ×3 (08:00→17:00)
[2021-09-01] MEDS: NYSTATIN TOPICAL POWDER 15GM BOTTLE. TP SCH ×2 (09:00→20:37)
--- NOTE | 2021-09-01 09:26 | PDOC ---
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 s/p bilateral pop/tibial thrombectomies with patch angioplasty s/p RLE hematoma evacuation Metabolic cephalopathy Probable Covid toes IVORY Lactic acidosis Dysphagia Malnutrition Heel erythema Poor nail care Severe malnutrition History of Present Illness History of Present Illness 09/01/2021: Patient has no complaints today, reports minimal pain in his bilateral feet. Bilateral wound vacs are in place; he has been nonweightbearing and offloading his heels. He will work with physical therapy and Occupational Therapy today as much as tolerated. Discussed with RN. 08/31 Eval and examined at bedside. POD2. Pain well controlled. PT/OT. Vascular following. 08/30/2021: Patient seen and examined at bedside. POD #1, s/p partial amputation of right first through fifth digit, left TMA, bilateral heel debridement. He is resting in bed comfortably, but does report some residual bilateral feet pain that is controlled with medication. States he has been instructed to rest his heels and has not yet worked with PT/OT. Perhaps we can get him to do some exercises that the head of the bed today. Denies fever, nausea, or vomiting. 08/29 Evaluated examined at bedside. Some lower extremity pain. Eager for surgery today. Continue current plan. will follow-up with the patient again after surgery 08/28/2021: Afebrile. Patient denies chest pain or shortness of breath. He reports some left lower extremity pain that is controlled with medications. Reportedly has plans for surgical amputation of left toes tomorrow. 08/26/2021 No acute events overnight. Patient seen examined bedside. No complaints at this time. Pain is well controlled. Patient is ready for surgery on Friday 08/25: Seen bedside. Able to get up. Pain is well controlled. No chest pain or shortness of breath. Continue therapy modalities. Discussed with RN. 08/24: Seen bedside. Has been working with therapy feels is getting stronger. He tells me he thinks he is getting surgery tentatively on 08/29/2021 and will have "most of my toes cut off". 08/23: No acute events overnight. Patient seen and examined bedside. Plan for surgery with vascular surgery on August 29. Continue wound care for now. Osteomyelitis ruled out. Patient's chart, labs, images were reviewed and discussed with RN 08/22: No acute events overnight. Patient seen and examined bedside. Pending vascular surgery evaluation for possible toe amputations. Continue wound care for now. 08/21: Examined at bedside. Clinically stable. Rehab screen. Continue current plan otherwise. 08/20: Eval examined at bedside. No complaints, no distress. Rehab screen tomorrow. 08/19: Evaluated examined at bedside. Resting in bed did not appear in any distress. Continue therapy modalities 08/18: Evaluated examined at bedside. No major complaints. No distress. Screen for rehab on Saturday. 08/17: Evaluated examined at bedside. Resting in bed did not appear in any distress. Continue therapy for modalities 08/16: Patient seen and examined. He is resting with no apparent distress 08/15: Patient seen and examined. Jesica removed yesterday, incision site looks good 08/14/2021 Patient seen and examined Discussed with RN Chart reviewed I called the vascular surgery nurse practitioner to see if they could take the jesica out They said they would come later today to check on that (appreciate their help) 08/13/2019 Patient seen and examined He is up in the chair His nurse states he was able to walk to the bathroom twice His feet both still look necrotic Discussed with RN Chart reviewed 08/12/2021 Patient seen and examined Discussed with RN Chart reviewed Left foot still looks necrotic across the toes and the heel The right foot looks slightly better with slight healing of the heel but the toes are still quite necrotic 08/11/2021 Patient seen and examined Discussed with RN Chart reviewed Discussed with case management He took 8 steps yesterday 08/10/2021 Patient seen and examined exam discussed with case management Discussed with RN Chart reviewed No change clinically still wearing lower extremity protectors the toes are necrotic as are the heels 08/09: Seen sitting in chair today. He is wearing his postoperative shoes feels he is minimally stronger. Short of breath on exertion. 08/08: Seen and examined bedside. He is awaiting therapy evaluation today. Foot pain is well controlled. No worsening erythema or fevers but does have some d rainage on the lateral left heel wound. No shortness of breath or chest pain. 08/04/2021 Patient seen and examined He is resting with no apparent distress Discussed with case management Chart reviewed Vascular surgery saw him again yesterday and is hoping to only have to do TMA in the future instead of BKA if we let his feett tissues try to recover for a few weeks Appreciate vascular input. 08/03/2021 Patient seen and examined Laying comfortably in bed with flat affect Bilateral heel protectors present; Dry gangrene present on bilateral toes and heels; Discussed with the wound care nurse Discussed with patient the need for vascular surgery input regarding foot surgery and potential bilateral BKA Chart reviewed Discussed with RN 08/02/2021 Patient seen and examined Discussed with RN Chart reviewed He is resting with no apparent distress 08/01/2021 Patient seen and examined He seems depressed and very weak He has heel protectors on both the toes that are exposed are extremely gangrenous and black and demarcated Discussed with the wound care nurse He explains that vascular surgery is awaiting the complete demarcation to finish up and then they will consider surgery at that time Chart reviewed Discussed with RN 07/31/2021 Patient seen and examined Discussed plan Chart reviewed Still feeling weak Mr Lambert is a 60-year-old male that presented 06/29/2021 via [facility] with decreased level of consciousness. Most of the history was obtained via EMS and patient's friend Reese [phone], who states that patient has been sick since about June 22 per Reese, he states that they both had cough cold headache sinus type pain. Per Reese's report patient is okay during the day and very alert and orientated and at night he has a decreased alertness. Patient is unable to help with exam when asked questions he does deny any past medical history, surgeries, or any other health conditions. Reese who is his roommate collaborates any information gotten from the patient. Accu-Chek per EMS was 250, room air sat in the room was 88 to 90%. 07/07: not much improved, about the same. cont current. PULM following. we have no clinimix, cont D5 fluid, 07/08: more alert, can try ST again, if able to sit up, still very weak 07/09: much more alert, bedside swallow of water ok, sits upright, much stronger, will try clears if able, ST to follow. toes are worsening, now black, hannah consult podiatry to follow, 07/10: More alert. Working with speech and swallowing today. Off O2. Less confused. Bilateral toe ulcers assessed by podiatry today. 07/11: More alert, eating. Arterial Doppler was left popliteal and severe distal disease bilaterally. Still has a little bit of a cough. Less confused today. 07/12: Eating reasonably well. Tentative plans for angiogram for consideration of limb salvage bilateral feet tomorrow. Discussed with cardiology. He will need significant follow-up care likely eventual amputations. 07/13: N.p.o. for angiogram today with bilateral SFA occlusive disease and left popliteal disease with left posterior tibial artery with some flow otherwise occlusive disease per cardiology. Discussed vascular surgery consultation for consideration of definitive revascularization with likely bilateral transmetatarsal amputations. Still with a little bit of a cough. Shortness of breath 07/14: Seen bedside. Having some pain in his bilateral extremities. Shortness of breath improved still with little bit of cough. Eating again. Amenable to revascularization and likely surgical debridement next week. Increasing th romboprophylaxis 07/15: Seen bedside. Not hypoxic. Cough is improving. He feels he is mental status is improved but he is definitely still mentating slowly. Complains of foot pain. He is contemplating surgical options but is okay with what ever the surgeons to choose for his likely lower extremity bypass tentatively planned for 07/17/202107/16: Bilateral foot pain still with cough but improving. Still is contemplating surgical options. 07/17: Patient off floor for surgery today. Chart evaluated. s/p bilateral pop/tibial thrombectomies with patch angioplasty. s/p RLE hematoma evacuation 07/18: Patient did and examined at bedside. He is postop day 1 from bilateral thrombectomies yesterday. Looks like he may need more surgery prior to discharge. Continue heparin drip. Suspect leukocytosis today secondary to surgery. Continue current. 07/19: Patient evaluated examined at bedside. He was working with physical therapy when seen. Continuing heparin drip. Recheck CBC today. Cardiology following vascular following. Will likely need further surgery prior to discharge. 07/20: Seen at bedside. Having RLE pain and had Hgb drop overnight. Will transfuse. Stop heparin drip for now. Seen by vascular, hematoma evacuation ordered. serial Hgb. 07/21: Patient evaluated examined at bedside. Hemoglobin improved up to 8.1 today. Underwent hematoma evacuation yesterday. Planning for further intervention next week. 07/22: Examine and evaluated at bedside. Resting in bed no major complaints. Hemoglobin stable. Appreciate Cardiology resuming heparin. Further intervention next week. 07/23: Seen at bedside no motor complaints. Hemoglobin still stable. No major clinical changes for today. Intervention this coming week. 07/24: Seen bedside. Has good appetite no cough shortness of breath or chest pain. Left heel with more gangrenous changes left feet. Plan for n.p.o. after midnight 07/25: Seen bedside. N.p.o. for bilateral foot debridement today. K3. Glucose low 100s. Has a friend visiting today. No chest pain or shortness of breath. Pain controlled. 2: Changes in the off heparin drip to Xarelto. No significant anticoagulation for 3 months then can start progressive ambulation with physical therapy with postop shoe per vascular surgery recommendations. No shortness of breath or chest pain today just very weak. 23: Up to chair today, has more bilateral foot pain, now wearing post -op s hoes. No SOB or cough. He is asking to get back into bed. Encouraged to continue trying to get on his feet. 2: In bed. Foot pain is improved from yesterday. No shortness of breath no cough. Still very weak even weak eating today. 07/29: Seen in bed. No foot pain today. No shortness of breath or cough. Still weak eating well. Not out of bed today. Glucose low 100s. 07/30: Seen in bed. Pain-free eating breakfast in bed. Still feeling weak has been up on his foot the last day. Glucose well controlled. Vitals/I&O Vitals/I&O: Vital Signs Date Time Temp Pulse Resp B/P (MAP) Pulse Ox O2 Delivery O2 Flow Rate FiO2 09/01/21 07:00 97.8 77 16 118/65 (82) 98 Room Air 97.8 08/31/21 18:08 3.0 I & O 08/31/21 08/31/21 09/01/21 15:00 23:00 07:00 Intake Total 400 ml Output Total 200 ml 225 ml Balance -200 ml 400 ml -225 ml Physical Exam Physical Exam: lethargic and weak General: Alert, Oriented X3, Cooperative, No acute distress, Other (Resting) Heart: Regular rate Lungs: Clear Abdomen: Normal bowel sounds Extremities: Other (Bilateral feet wrapped in bandage with dressings c/d/i; bilateral wound vacs in place.) Skin: Other (No further hematoma accumulation) Labs Labs: Laboratory Tests Test 08/31/21 11:36 08/31/21 17:16 08/31/21 20:49 09/01/21 07:42 Glucose (Fingerstick) 116 mg/dL (70-99) 128 mg/dL (70-99) 129 mg/dL (70-99) 97 mg/dL (70-99) Assessment and Plan Assessmemt and Plan Problems Medical Problems: (1) Dehydration Status: Acute (2) Mental status alteration Status: Acute (3) Pneumonia Status: Acute Comment Review of Relevant I have reviewed the following items amanda (where applicable) has been applied. Justifications for Admission Other Justification COVID-19 positive test (U07.1, COVID-19) with Acute Pneumonia (J12.89, Other viral pneumonia) (If respiratory failure or sepsis present, add as separate assessment) TIFFANY HERNANDEZ MD Sep 01, 2021 09:26
[2021-09-01] MEDS: oxyCODONE/APAP 5/325 1 TAB TABLET PO PRN ×3 (09:45→20:36)
--- NOTE | 2021-09-01 10:26 | PDOC ---
Provider Note Date of Service: DATE: 09/01/21 TIME: 10:07 Provider Note Provider Note Vascular S: Patient resting in bed, complains of mild pain in feet. Pt seen with Dr. Ramirez O:Awake and alert VSS, afebrile Right foot toe amputation sites all dry and intact, well approximated, heel wound bed with some dry fatty tissue, yellow. This was excisionally debrided at bedside today by Dr. Ramirez. Left foot TMA incision dry and intact, well approximated, heel wound pink but with large amount of yellow fat, slight bleeding. A/P: A/P: 1. 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 2. History of COVID pneumonia. 3. 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 s/p bilateral pop/tibial thrombectomies with patch angioplasty 07/17/2021. Feet are well perfused. s/p RLE hematoma evacuation 07/20/2021 s/p Partial amputation of right first through fifth digit, left TMA, bilateral heel debridement He is doing well post procedures. - Continue anticoagulation - Keep incisions clean and dry, Will start veraflo wound vac to rt heel and standard vac to left heel. Discussed with Wound care team. - Continue to off-load heels while in bed, needs to be non-weight bearing bilateral feet. Justicifation of Admission Dx: Justifications for Admission: Justification of Admission Dx: Yes FRANCIS ALLAN Sep 01, 2021 10:26
[2021-09-01 10:35] VITALS: BP 119/77
[2021-09-01] MEDS: ASCORBIC ACID 500 MG TABLET PO SCH (11:24)
[2021-09-01] MEDS: THIAMINE 100 MG TABLET. PO SCH (11:25)
[2021-09-01] MEDS: ASPIRIN CHEWABLE 81 MG TABLET. PO SCH (11:25)
[2021-09-01] MEDS: ZINC SULFATE 220 MG CAPSULE. PO SCH (11:25)
[2021-09-01] MEDS: METOPROLOL TART IMMED RELEASE 25 MG TABLET. PO SCH ×2 (11:25→20:36)
[2021-09-01] MEDS: PANTOPRAZOLE 40 MG TABLET.DR. PO SCH (11:25)
--- NOTE | 2021-09-01 11:45 | NUR ---
Wound Care Wound Type/Assessment: Pt seen for wound care follow up regarding right and left heel PU's. Patient s/p surgical amputation of right and left toes due to possible covid toes. Patient also underwent debridement of left and right heels with vascular. Orders for veraflo wound vac to be placed on right heel today per Dr Ramirez. the surgical amputation sites on bilateral feet are well approximated with sutures, cleansed with chloraprep and redressed using, ABD pads and kerilx. The heels are both granulated with adipose tissue exposed and show good signs of healing well with wound vac. Treatment Recommendations/Plan: skin prepped and one piece of churchill foam placed into left heel, black cleanse foam with 20ml NS x 5 min Q2H flush placed on right heel and Y connected and a good seal maintained at 125mmHg continuous. Education provided: to pt re: Patient educated on wound care, wound vac therapy and dressing changes and PU prevention. Offloading surface/device: Patient declined heel medix and Rooke boots at this time. Recommended Referrals/Tests: vascular and wound care following. Discharge Recommendations for dressings: No other wounds noted. Bed lowered and call light in reach. Wound care will follow up on 09/04/21 for next wound vac dressing change.
[2021-09-01 15:00] VITALS: BP 115/61
[2021-09-01] MEDS: RIVAROXABAN 10 MG TABLET. PO SCH (17:31)
[2021-09-01 19:00] VITALS: BP 107/74
[2021-09-01] MEDS: ATORVASTATIN CALCIUM 20 MG TABLET PO SCH (20:36)
[2021-09-01 23:00] VITALS: BP 115/66
[2021-09-02 03:00] VITALS: BP 95/53
[2021-09-02 07:00] VITALS: BP 109/67
[2021-09-02] MEDS: PANTOPRAZOLE 40 MG TABLET.DR. PO SCH (07:50)
[2021-09-02] MEDS: oxyCODONE/APAP 5/325 1 TAB TABLET PO PRN ×4 (08:00→22:01)
[2021-09-02] MEDS: INSULIN LISPRO 300 UNITS/3 ML VIAL. SQ SCH ×3 (08:00→17:00)
[2021-09-02] MEDS: THIAMINE 100 MG TABLET. PO SCH (08:49)
[2021-09-02] MEDS: ASCORBIC ACID 500 MG TABLET PO SCH (08:51)
[2021-09-02] MEDS: METOPROLOL TART IMMED RELEASE 25 MG TABLET. PO SCH ×2 (08:51→21:27)
[2021-09-02] MEDS: ASPIRIN CHEWABLE 81 MG TABLET. PO SCH (08:51)
[2021-09-02] MEDS: ZINC SULFATE 220 MG CAPSULE. PO SCH (08:51)
[2021-09-02] MEDS: NYSTATIN TOPICAL POWDER 15GM BOTTLE. TP SCH ×2 (08:58→21:00)
[2021-09-02 11:24] VITALS: BP 100/64
[2021-09-02 15:18] VITALS: BP 115/75
[2021-09-02] MEDS: RIVAROXABAN 10 MG TABLET. PO SCH (17:55)
[2021-09-02 19:25] VITALS: BP 111/70
[2021-09-02] MEDS: ATORVASTATIN CALCIUM 20 MG TABLET PO SCH (21:27)
[2021-09-02 23:13] VITALS: BP 103/67
[2021-09-03 03:43] VITALS: BP 105/54
[2021-09-03 07:00] VITALS: BP_SYST 102; BP_SYST 114; BP_DIAS 56; BP_DIAS 64
[2021-09-03 07:18] LABS: CREATININE 0.8 mg/dL (0.7-1.3)
[2021-09-03] MEDS: INSULIN LISPRO 300 UNITS/3 ML VIAL. SQ SCH ×3 (08:00→17:00)
[2021-09-03] MEDS: NYSTATIN TOPICAL POWDER 15GM BOTTLE. TP SCH ×2 (09:00→21:25)
[2021-09-03] MEDS: THIAMINE 100 MG TABLET. PO SCH (09:32)
[2021-09-03] MEDS: ASPIRIN CHEWABLE 81 MG TABLET. PO SCH (09:32)
[2021-09-03] MEDS: PANTOPRAZOLE 40 MG TABLET.DR. PO SCH (09:32)
[2021-09-03] MEDS: METOPROLOL TART IMMED RELEASE 25 MG TABLET. PO SCH ×2 (09:32→21:24)
[2021-09-03] MEDS: ZINC SULFATE 220 MG CAPSULE. PO SCH (09:32)
[2021-09-03] MEDS: ASCORBIC ACID 500 MG TABLET PO SCH (09:33)
[2021-09-03] MEDS: oxyCODONE/APAP 5/325 1 TAB TABLET PO PRN ×3 (10:59→22:30)
[2021-09-03 11:00] VITALS: BP 140/74
[2021-09-03 14:50] VITALS: BP 129/71
--- NOTE | 2021-09-03 17:02 | PDOC ---
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 s/p bilateral pop/tibial thrombectomies with patch angioplasty s/p RLE hematoma evacuation Metabolic cephalopathy Probable Covid toes IVORY Lactic acidosis Dysphagia Malnutrition Heel erythema Poor nail care Severe malnutrition History of Present Illness History of Present Illness 09/02 Evaluated examined at bedside. Pain controlled. Wound VAC still in place. Continue antibiotics. Therapy modalities 09/01/2021: Patient has no complaints today, reports minimal pain in his bilateral feet. Bilateral wound vacs are in place; he has been nonweightbearing and offloading his heels. He will work with physical therapy and Occupational Therapy today as much as tolerated. Discussed with RN. 08/31 Thuy and examined at bedside. POD2. Pain well controlled. PT/OT. Vascular following. 08/30/2021: Patient seen and examined at bedside. POD #1, s/p partial amputation of right first through fifth digit, left TMA, bilateral heel debridement. He is resting in bed comfortably, but does report some residual bilateral feet pain that is controlled with medication. States he has been instructed to rest his heels and has not yet worked with PT/OT. Perhaps we can get him to do some exercises that the head of the bed today. Denies fever, nausea, or vomiting. 08/29 Evaluated examined at bedside. Some lower extremity pain. Eager for surgery t ulises. Continue current plan. will follow-up with the patient again after surgery 08/28/2021: Afebrile. Patient denies chest pain or shortness of breath. He reports some left lower extremity pain that is controlled with medications. Reportedly has plans for surgical amputation of left toes tomorrow. 08/26/2021 No acute events overnight. Patient seen examined bedside. No complaints at this time. Pain is well controlled. Patient is ready for surgery on Friday 08/25: Seen bedside. Able to get up. Pain is well controlled. No chest pain or shortness of breath. Continue therapy modalities. Discussed with RN. 08/24: Seen bedside. Has been working with therapy feels is getting stronger. He tells me he thinks he is getting surgery tentatively on 08/29/2021 and will have "most of my toes cut off". 08/23: No acute events overnight. Patient seen and examined bedside. Plan for surgery with vascular surgery on August 29. Continue wound care for now. Osteomyelitis ruled out. Patient's chart, labs, images were reviewed and discussed with RN 08/22: No acute events overnight. Patient seen and examined bedside. Pending vascular surgery evaluation for possible toe amputations. Continue wound care for now. 08/21: Examined at bedside. Clinically stable. Rehab screen. Continue current plan otherwise. 08/20: Eval examined at bedside. No complaints, no distress. Rehab screen tomorrow. 08/19: Evaluated examined at bedside. Resting in bed did not appear in any distress. Continue therapy modalities 08/18: Evaluated examined at bedside. No major complaints. No distress. Screen for rehab on Saturday. 08/17: Evaluated examined at bedside. Resting in bed did not appear in any distress. Continue therapy for modalities 08/16: Patient seen and examined. He is resting with no apparent distress 08/15: Patient seen and examined. Jesica removed yesterday, incision site looks good 08/14/2021 Patient seen and examined Discussed with RN Chart reviewed I called the vascular surgery nurse practitioner to see if they could take the jesica out They said they would come later today to check on that (appreciate their help) 08/13/2019 Patient seen and examined He is up in the chair His nurse states he was able to walk to the bathroom twice His feet both still look necrotic Discussed with RN Chart reviewed 08/12/2021 Patient seen and examined Discussed with RN Chart reviewed Left foot still looks necrotic across the toes and the heel The right foot looks slightly better with slight healing of the heel but the toes are still quite necrotic 08/11/2021 Patient seen and examined Discussed with RN Chart reviewed Discussed with case management He took 8 steps yesterday 08/10/2021 Patient seen and examined exam discussed with case management Discussed with RN Chart reviewed No change clinically still wearing lower extremity protectors the toes are necrotic as are the heels 08/09: Seen sitting in chair today. He is wearing his postoperative shoes feels he is minimally stronger. Short of breath on exertion. 08/08: Seen and examined bedside. He is awaiting therapy evaluation today. Foot pain is well controlled. No worsening erythema or fevers but does have some drainage on the lateral left heel wound. No shortness of breath or chest pain. 08/04/2021 Patient seen and examined He is resting with no apparent distress Discussed with case management Chart reviewed Vascular surgery saw him again yesterday and is hoping to only have to do TMA in the future instead of BKA if we let his feett tissues try to recover for a few weeks Appreciate vascular input. 08/03/2021 Patient seen and examined Laying comfortably in bed with flat affect Bilateral heel protectors present; Dry gangrene present on bilateral toes and heels; Discussed with the wound care nurse Discussed with patient the need for vascular surgery input regarding foot surgery and potential bilateral BKA Chart reviewed Discussed with RN 08/02/2021 Patient seen and examined Discussed with RN Chart reviewed He is resting with no apparent distress 08/01/2021 Patient seen and examined He seems depressed and very weak He has heel protectors on both the toes that are exposed are extremely gangrenous and black and demarcated Discussed with the wound care nurse He explains that vascular surgery is awaiting the complete demarcation to finish up and then they will consider surgery at that time Chart reviewed Discussed with RN 07/31/2021 Patient seen and examined Discussed plan Chart reviewed Still feeling weak Mr Lambert is a 60-year-old male that presented 06/29/2021 via [facility] with decreased level of consciousness. Most of the history was obtained via EMS and patient's friend Reese [phone], who states that patient has been sick since about June 22 per Reese, he states that they both had cough cold headache sinus type pain. Per Reese's report patient is okay during the day and very alert and orientated and at night he has a decreased alertness. Patient is unable to help with exam when asked questions he does deny any past medical history, surgeries, or any other health conditions. Reese who is his roommate collaborates any information gotten from the patient. Accu-Chek per EMS was 250, room air sat in the room was 88 to 90%. 07/07: not much improved, about the same. cont current. PULM following. we have no clinimix, cont D5 fluid, 07/08: more alert, can try ST again, if able to sit up, still very weak 07/09: much more alert, bedside swallow of water ok, sits upright, much stronger, will try clears if able, ST to follow. toes are worsening, now hannah leigh consult podiatry to follow, 07/10: More alert. Working with speech and swallowing today. Off O2. Less confused. Bilateral toe ulcers assessed by podiatry today. 07/11: More alert, eating. Arterial Doppler was left popliteal and severe distal disease bilaterally. Still has a little bit of a cough. Less confused today. 07/12: Eating reasonably well. Tentative plans for angiogram for consideration of limb salvage bilateral feet tomorrow. Discussed with cardiology. He will need significant follow-up care likely eventual amputations. 07/13: N.p.o. for angiogram today with bilateral SFA occlusive disease and left popliteal disease with left posterior tibial artery with some flow otherwise occlusive disease per cardiology. Discussed vascular surgery consultation for consideration of definitive revascularization with likely bilateral transmetatarsal amputations. Still with a little bit of a cough. Shortness of breath 07/14: Seen bedside. Having some pain in his bilateral extremities. Shortness of breath improved still with little bit of cough. Eating again. Amenable to revascularization and likely surgical debridement next week. Increasing thromboprophylaxis 07/15: Seen bedside. Not hypoxic. Cough is improving. He feels he is mental status is improved but he is definitely still mentating slowly. Complains of foot pain. He is contemplating surgical options but is okay with what ever the surgeons to choose for his likely lower extremity bypass tentatively planned for 07/17/202107/16: Bilateral foot pain still with cough but improving. Still is contemplating surgical options. 07/17: Patient off floor for surgery today. Chart evaluated. s/p bilateral pop/tibial thrombectomies with patch angioplasty. s/p RLE hematoma evacuation 07/18: Patient did and examined at bedside. He is postop day 1 from bilateral thrombectomies yesterday. Looks like he may need more surgery prior to discharge. Continue heparin drip. Suspect leukocytosis today secondary to surgery. Continue current. 07/19: Patient evaluated examined at bedside. He was working with physical therapy when seen. Continuing heparin drip. Recheck CBC today. Cardiology following vascular following. Will likely need further surgery prior to discharge. 07/20: Seen at bedside. Having RLE pain and had Hgb drop overnight. Will transfuse. Stop heparin drip for now. Seen by vascular, hematoma evacuation ordered. serial Hgb. 07/21: Patient evaluated examined at bedside. Hemoglobin improved up to 8.1 today. Underwent hematoma evacuation yesterday. Planning for further inter vention next week. 07/22: Examine and evaluated at bedside. Resting in bed no major complaints. Hemoglobin stable. Appreciate Cardiology resuming heparin. Further intervention next week. 07/23: Seen at bedside no motor complaints. Hemoglobin still stable. No major clinical changes for today. Intervention this coming week. 07/24: Seen bedside. Has good appetite no cough shortness of breath or chest pain. Left heel with more gangrenous changes left feet. Plan for n.p.o. after midnight 07/25: Seen bedside. N.p.o. for bilateral foot debridement today. K3. Glucose low 100s. Has a friend visiting today. No chest pain or shortness of breath. Pain controlled. 2/2: Changes in the off heparin drip to Xarelto. No significant anticoagulation for 3 months then can start progressive ambulation with physical therapy with postop shoe per vascular surgery recommendations. No shortness of breath or chest pain today just very weak. 2/3: Up to chair today, has more bilateral foot pain, now wearing post -op shoes. No SOB or cough. He is asking to get back into bed. Encouraged to continue trying to get on his feet. 2/4: In bed. Foot pain is improved from yesterday. No shortness of breath no cough. Still very weak even weak eating today. 2/5: Seen in bed. No foot pain today. No shortness of breath or cough. Still weak eating well. Not out of bed today. Glucose low 100s. 2/6: Seen in bed. Pain-free eating breakfast in bed. Still feeling weak has been up on his foot the last day. Glucose well controlled. Vitals/I&O Vitals/I&O: Vital Signs Date Time Temp Pulse Resp B/P (MAP) Pulse Ox O2 Delivery O2 Flow Rate FiO2 09/03/21 14:50 96.6 90 17 129/71 (90) 98 Room Air 96.6 09/02/21 17:56 3.0 I & O 09/02/21 09/02/21 09/03/21 15:00 23:00 07:00 Intake Total 787 ml 360 ml Output Total 250 ml Balance 787 ml 110 ml Physical Exam Physical Exam: lethargic and weak General: Alert, Oriented X3, Cooperative, No acute distress, Other (Resting) Heart: Regular rate Lungs: Clear Abdomen: Normal bowel sounds Extremities: Other (Bilateral feet wrapped in bandage with dressings c/d/i; bilateral wound vacs in place.) Skin: Other (No further hematoma accumulation) Labs Labs: Laboratory Tests Test 09/03/21 05:50 09/03/21 07:42 09/03/21 11:27 09/03/21 16:45 Creatinine 0.8 mg/dL (0.7-1.3) Estimated GFR (Cockcroft-Gault) 98.0 Glucose (Fingerstick) 106 mg/dL (70-99) 116 mg/dL (70-99) 125 mg/dL (70-99) Assessment and Plan Assessmemt and Plan Problems Medical Problems: (1) Dehydration Status: Acute (2) Mental status alteration Status: Acute (3) Pneumonia Status: Acute Comment Review of Relevant I have reviewed the following items amanda (where applicable) has been applied. Justifications for Admission Other Justification COVID-19 positive test (U07.1, COVID-19) with Acute Pneumonia (J12.89, Other viral pneumonia) (If respiratory failure or sepsis present, add as separate assessment) SIMONE COOPER MD Sep 03, 2021 17:02
--- NOTE | 2021-09-03 17:03 | PDOC ---
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 s/p bilateral pop/tibial thrombectomies with patch angioplasty s/p RLE hematoma evacuation Metabolic cephalopathy Probable Covid toes IVORY Lactic acidosis Dysphagia Malnutrition Heel erythema Poor nail care Severe malnutrition History of Present Illness History of Present Illness 09/03 Evaluated examined at bedside. Continue current with wound care therapy antibiotics. Discussed with bedside RN. 09/02 Evaluated examined at bedside. Pain controlled. Wound VAC still in place. Continue antibiotics. Therapy modalities 09/01/2021: Patient has no complaints today, reports minimal pain in his bilateral feet. Bilateral wound vacs are in place; he has been nonweightbearing and offloading his heels. He will work with physical therapy and Occupational Therapy today as much as tolerated. Discussed with RN. 08/31 Eval and examined at bedside. POD2. Pain well controlled. PT/OT. Vascular following. 08/30/2021: Patient seen and examined at bedside. POD #1, s/p partial amputation of right first through fifth digit, left TMA, bilateral heel debridement. He is resting in bed comfortably, but does report some residual bilateral feet pain that is controlled with medication. States he has been instructed to rest his heels and has not yet worked with PT/OT. Perhaps we can get him to do some exercises that the head of the bed today. Denies fever, nausea, or vomiting. 08/29 Evaluated examined at bedside. Some lower extremity pain. Eager for surgery today. Continue current plan. will follow-up with the patient again after surgery 08/28/2021: Afebrile. Patient denies chest pain or shortness of breath. He reports some left lower extremity pain that is controlled with medications. Reportedly has plans for surgical amputation of left toes tomorrow. 08/26/2021 No acute events overnight. Patient seen examined bedside. No complaints at this time. Pain is well controlled. Patient is ready for surgery on Friday 08/25: Seen bedside. Able to get up. Pain is well controlled. No chest pain or shortness of breath. Continue therapy modalities. Discussed with RN. 08/24: Seen bedside. Has been working with therapy feels is getting stronger. He tells me he thinks he is getting surgery tentatively on 08/29/2021 and will have "most of my toes cut off". 08/23: No acute events overnight. Patient seen and examined bedside. Plan for surgery with vascular surgery on August 29. Continue wound care for now. Osteomyelitis ruled out. Patient's chart, labs, images were reviewed and discussed with RN 08/22: No acute events overnight. Patient seen and examined bedside. Pending vascular surgery evaluation for possible toe amputations. Continue wound care for now. 08/21: Examined at bedside. Clinically stable. Rehab screen. Continue current plan otherwise. 08/20: Eval examined at bedside. No complaints, no distress. Rehab screen tomorrow. 08/19: Evaluated examined at bedside. Resting in bed did not appear in any distress. Continue therapy modalities 08/18: Evaluated examined at bedside. No major complaints. No distress. Screen for rehab on Saturday. 08/17: Evaluated examined at bedside. Resting in bed did not appear in any distress. Continue therapy for modalities 08/16: Patient seen and examined. He is resting with no apparent distress 08/15: Patient seen and examined. Jesica removed yesterday, incision site looks good 08/14/2021 Patient seen and examined Discussed with RN Chart reviewed I called the vascular surgery nurse practitioner to see if they could take the jesica out They said they would come later today to check on that (appreciate their help) 08/13/2019 Patient seen and examined He is up in the chair His nurse states he was able to walk to the bathroom twice His feet both still look necrotic Discussed with RN Chart reviewed 08/12/2021 Patient seen and examined Discussed with RN Chart reviewed Left foot still looks necrotic across the toes and the heel The right foot looks slightly better with slight healing of the heel but the toes are still quite necrotic 08/11/2021 Patient seen and examined Discussed with RN Chart reviewed Discussed with case management He took 8 steps yesterday 08/10/2021 Patient seen and examined exam discussed with case management Discussed with RN Chart reviewed No change clinically still wearing lower extremity protectors the toes are necrotic as are the heels 08/09: Seen sitting in chair today. He is wearing his postoperative shoes feels he is minimally stronger. Short of breath on exertion. 08/08: Seen and examined bedside. He is awaiting therapy evaluation today. Foot pain is well controlled. No worsening erythema or fevers but does have some drainage on the lateral left heel wound. No shortness of breath or chest pain. 08/04/2021 Patient seen and examined He is resting with no apparent distress Discussed with case management Chart reviewed Vascular surgery saw him again yesterday and is hoping to only have to do TMA in the future instead of BKA if we let his feett tissues try to recover for a few weeks Appreciate vascular input. 08/03/2021 Patient seen and examined Laying comfortably in bed with flat affect Bilateral heel protectors present; Dry gangrene present on bilateral toes and heels; Discussed with the wound care nurse Discussed with patient the need for vascular surgery input regarding foot surgery and potential bilateral BKA Chart reviewed Discussed with RN 08/02/2021 Patient seen and examined Discussed with RN Chart reviewed He is resting with no apparent distress 08/01/2021 Patient seen and examined He seems depressed and very weak He has heel protectors on both the toes that are exposed are extremely gangrenous and black and demarcated Discussed with the wound care nurse He explains that vascular surgery is awaiting the complete demarcation to finish up and then they will consider surgery at that time Chart reviewed Discussed with RN 07/31/2021 Patient seen and examined Discussed plan Chart reviewed Still feeling weak Mr Lambert is a 60-year-old male that presented 06/29/2021 via [facility] with decreased level of consciousness. Most of the history was obtained via EMS and patient's friend Reese [phone], who states that patient has been sick since about June 22 per Reese, he states that they both had cough cold headache sinus type pain. Per Reese's report patient is okay during the day and very alert and orientated and at night he has a decreased alertness. Patient is unable to help with exam when asked questions he does deny any past medical history, surgeries, or any other health conditions. Reese who is his roommate collaborates any information gotten from the patient. Accu-Chek per EMS was 250, room air sat in the room was 88 to 90%. 07/07: not much improved, about the same. cont current. PULM following. we have no clinimix, cont D5 fluid, 07/08: more alert, can try ST again, if able to sit up, still very weak 07/09: much more alert, bedside swallow of water ok, sits upright, much stronger, will try clears if able, ST to follow. toes are worsening, now black, hannah consult podiatry to follow, 07/10: More alert. Working with speech and swallowing today. Off O2. Less confused. Bilateral toe ulcers assessed by podiatry today. 07/11: More alert, eating. Arterial Doppler was left popliteal and severe distal disease bilaterally. Still has a little bit of a cough. Less confused today. 07/12: Eating reasonably well. Tentative plans for angiogram for consideration of limb salvage bilateral feet tomorrow. Discussed with cardiology. He will need significant follow-up care likely eventual amputations. 07/13: N.p.o. for angiogram today with bilateral SFA occlusive disease and left popliteal disease with left posterior tibial artery with some flow otherwise occlusive disease per cardiology. Discussed vascular surgery consultation for consideration of definitive revascularization with likely bilateral transmetatarsal amputations. Still with a little bit of a cough. Shortness of breath 07/14: Seen bedside. Having some pain in his bilateral extremities. Shortness of breath improved still with little bit of cough. Eating again. Amenable to revascularization and likely surgical debridement next week. Increasing thromboprophylaxis 07/15: Seen bedside. Not hypoxic. Cough is improving. He feels he is mental status is improved but he is definitely still mentating slowly. Complains of foot pain. He is contemplating surgical options but is okay with what ever the surgeons to choose for his likely lower extremity bypass tentatively planned for 07/17/202107/16: Bilateral foot pain still with cough but improving. Still is contemplating surgical options. 07/17: Patient off floor for surgery today. Chart evaluated. s/p bilateral pop /tibial thrombectomies with patch angioplasty. s/p RLE hematoma evacuation 07/18: Patient did and examined at bedside. He is postop day 1 from bilateral thrombectomies yesterday. Looks like he may need more surgery prior to discharge. Continue heparin drip. Suspect leukocytosis today secondary to surgery. Continue current. 07/19: Patient evaluated examined at bedside. He was working with physical therapy when seen. Continuing heparin drip. Recheck CBC today. Cardiology following vascular following. Will likely need further surgery prior to discharge. 07/20: Seen at bedside. Having RLE pain and had Hgb drop overnight. Will t ransfuse. Stop heparin drip for now. Seen by vascular, hematoma evacuation ordered. serial Hgb. 07/21: Patient evaluated examined at bedside. Hemoglobin improved up to 8.1 today. Underwent hematoma evacuation yesterday. Planning for further intervention next week. 07/22: Examine and evaluated at bedside. Resting in bed no major complaints. Hemoglobin stable. Appreciate Cardiology resuming heparin. Further intervention next week. 07/23: Seen at bedside no motor complaints. Hemoglobin still stable. No major clinical changes for today. Intervention this coming week. 07/24: Seen bedside. Has good appetite no cough shortness of breath or chest pain. Left heel with more gangrenous changes left feet. Plan for n.p.o. after midnight 07/25: Seen bedside. N.p.o. for bilateral foot debridement today. K3. Glucose low 100s. Has a friend visiting today. No chest pain or shortness of breath. Pain controlled. 2: Changes in the off heparin drip to Xarelto. No significant anticoagulation for 3 months then can start progressive ambulation with physical therapy with postop shoe per vascular surgery recommendations. No shortness of breath or chest pain today just very weak. 2/3: Up to chair today, has more bilateral foot pain, now wearing post -op shoes. No SOB or cough. He is asking to get back into bed. Encouraged to continue trying to get on his feet. 24: In bed. Foot pain is improved from yesterday. No shortness of breath no cough. Still very weak even weak eating today. 2: Seen in bed. No foot pain today. No shortness of breath or cough. Still weak eating well. Not out of bed today. Glucose low 100s. 2: Seen in bed. Pain-free eating breakfast in bed. Still feeling weak has been up on his foot the last day. Glucose well controlled. Vitals/I&O Vitals/I&O: Vital Signs Date Time Temp Pulse Resp B/P (MAP) Pulse Ox O2 Delivery O2 Flow Rate FiO2 09/03/21 14:50 96.6 90 17 129/71 (90) 98 Room Air 96.6 09/02/21 17:56 3.0 I & O 09/02/21 09/02/21 09/03/21 15:00 23:00 07:00 Intake Total 787 ml 360 ml Output Total 250 ml Balance 787 ml 110 ml Physical Exam Physical Exam: lethargic and weak General: Alert, Oriented X3, Cooperative, No acute distress, Other (Resting) Heart: Regular rate Lungs: Clear Abdomen: Normal bowel sounds Extremities: Other (Bilateral feet wrapped in bandage with dressings c/d/i; bilateral wound vacs in place.) Skin: Other (No further hematoma accumulation) Labs Labs: Laboratory Tests Test 09/03/21 05:50 09/03/21 07:42 09/03/21 11:27 09/03/21 16:45 Creatinine 0.8 mg/dL (0.7-1.3) Estimated GFR (Cockcroft-Gault) 98.0 Glucose (Fingerstick) 106 mg/dL (70-99) 116 mg/dL (70-99) 125 mg/dL (70-99) Assessment and Plan Assessmemt and Plan Problems Medical Problems: (1) Dehydration Status: Acute (2) Mental status alteration Status: Acute (3) Pneumonia Status: Acute Comment Review of Relevant I have reviewed the following items amanda (where applicable) has been applied. Justifications for Admission Other Justification COVID-19 positive test (U07.1, COVID-19) with Acute Pneumonia (J12.89, Other viral pneumonia) (If respiratory failure or sepsis present, add as separate assessment) SIMONE COOPER MD Sep 03, 2021 17:03
[2021-09-03] MEDS: RIVAROXABAN 10 MG TABLET. PO SCH (17:29)
[2021-09-03 19:20] VITALS: BP 137/95
[2021-09-03] MEDS: ATORVASTATIN CALCIUM 20 MG TABLET PO SCH (21:24)
[2021-09-03 23:14] VITALS: BP 100/65
[2021-09-04 03:15] VITALS: BP 110/74
[2021-09-04 07:00] VITALS: BP 128/78
[2021-09-04] MEDS: INSULIN LISPRO 300 UNITS/3 ML VIAL. SQ SCH ×3 (07:46→17:00)
[2021-09-04] MEDS: PANTOPRAZOLE 40 MG TABLET.DR. PO SCH (08:59)
[2021-09-04] MEDS: oxyCODONE/APAP 5/325 1 TAB TABLET PO PRN ×4 (08:59→22:15)
[2021-09-04] MEDS: METOPROLOL TART IMMED RELEASE 25 MG TABLET. PO SCH ×2 (08:59→22:14)
[2021-09-04] MEDS: ASPIRIN CHEWABLE 81 MG TABLET. PO SCH (08:59)
[2021-09-04] MEDS: ZINC SULFATE 220 MG CAPSULE. PO SCH (08:59)
[2021-09-04] MEDS: ASCORBIC ACID 500 MG TABLET PO SCH (08:59)
[2021-09-04] MEDS: THIAMINE 100 MG TABLET. PO SCH (08:59)
[2021-09-04] MEDS: NYSTATIN TOPICAL POWDER 15GM BOTTLE. TP SCH ×2 (09:00→21:00)
--- NOTE | 2021-09-04 10:04 | NUR ---
MYLENE following. Discussed with RN, pt being rescreened for [facility]. Awaiting acceptance decision. MYLENE will continue to follow. Addendum: 09/04/21 at [address] [facility] has declined to accept due to non weight bearing status and concerns about discharge.
[2021-09-04 11:00] VITALS: BP 117/76
--- NOTE | 2021-09-04 11:00 | PDOC ---
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 s/p bilateral pop/tibial thrombectomies with patch angioplasty s/p RLE hematoma evacuation Metabolic cephalopathy Probable Covid toes IVORY Lactic acidosis Dysphagia Malnutrition Heel erythema Poor nail care Severe malnutrition History of Present Illness History of Present Illness 09/04/2021: Patient evaluated at bedside. Wound VAC to bilateral feet. Patient being rescreened for acute rehab. He has no complaints today; denies significant pain to bilateral feet. Encourage working with PT/OT. 09/03 Evaluated examined at bedside. Continue current with wound care therapy antibiotics. Discussed with bedside RN. 09/02 Evaluated examined at bedside. Pain controlled. Wound VAC still in place. Co ntinue antibiotics. Therapy modalities 09/01/2021: Patient has no complaints today, reports minimal pain in his bilateral feet. Bilateral wound vacs are in place; he has been nonweightbearing and offloading his heels. He will work with physical therapy and Occupational Therapy today as much as tolerated. Discussed with RN. 08/31 Thuy and examined at bedside. POD2. Pain well controlled. PT/OT. Vascular following. 08/30/2021: Patient seen and examined at bedside. POD #1, s/p partial amputation of right first through fifth digit, left TMA, bilateral heel debridement. He is resting in bed comfortably, but does report some residual bilateral feet pain that is controlled with medication. States he has been instructed to rest his heels and has not yet worked with PT/OT. Perhaps we can get him to do some exercises that the head of the bed today. Denies fever, nausea, or vomiting. 08/29 Evaluated examined at bedside. Some lower extremity pain. Eager for surgery today. Continue current plan. will follow-up with the patient again after surgery 08/28/2021: Afebrile. Patient denies chest pain or shortness of breath. He reports some left lower extremity pain that is controlled with medications. Reportedly has plans for surgical amputation of left toes tomorrow. 08/26/2021 No acute events overnight. Patient seen examined bedside. No complaints at this time. Pain is well controlled. Patient is ready for surgery on Friday 08/25: Seen bedside. Able to get up. Pain is well controlled. No chest pain or shortness of breath. Continue therapy modalities. Discussed with RN. 08/24: Seen bedside. Has been working with therapy feels is getting stronger. He tells me he thinks he is getting surgery tentatively on 08/29/2021 and will have "most of my toes cut off". 08/23: No acute events overnight. Patient seen and examined bedside. Plan for surgery with vascular surgery on August 29. Continue wound care for now. Osteomyelitis ruled out. Patient's chart, labs, images were reviewed and discussed with RN 08/22: No acute events overnight. Patient seen and examined bedside. Pending vascular surgery evaluation for possible toe amputations. Continue wound care for now. 08/21: Examined at bedside. Clinically stable. Rehab screen. Continue current plan otherwise. 08/20: Eval examined at bedside. No complaints, no distress. Rehab screen tomorrow. 08/19: Evaluated examined at bedside. Resting in bed did not appear in any distress. Continue therapy modalities 08/18: Evaluated examined at bedside. No major complaints. No distress. Screen for rehab on Saturday. 08/17: Evaluated examined at bedside. Resting in bed did not appear in any distress. Continue therapy for modalities 08/16: Patient seen and examined. He is resting with no apparent distress 08/15: Patient seen and examined. Conesus removed yesterday, incision site looks good 08/14/2021 Patient seen and examined Discussed with RN Chart reviewed I called the vascular surgery nurse practitioner to see if they could take the janet out They said they would come later today to check on that (appreciate their help) 08/13/2019 Patient seen and examined He is up in the chair His nurse states he was able to walk to the bathroom twice His feet both still look necrotic Discussed with RN Chart reviewed 08/12/2021 Patient seen and examined Discussed with RN Chart reviewed Left foot still looks necrotic across the toes and the heel The right foot looks slightly better with slight healing of the heel but the toes are still quite necrotic 08/11/2021 Patient seen and examined Discussed with RN Chart reviewed Discussed with case management He took 8 steps yesterday 08/10/2021 Patient seen and examined exam discussed with case management Discussed with RN Chart reviewed No change clinically still wearing lower extremity protectors the toes are necrotic as are the heels 08/09: Seen sitting in chair today. He is wearing his postoperative shoes feels he is minimally stronger. Short of breath on exertion. 08/08: Seen and examined bedside. He is awaiting therapy evaluation today. Foot pain is well controlled. No worsening erythema or fevers but does have some drainage on the lateral left heel wound. No shortness of breath or chest pain. 08/04/2021 Patient seen and examined He is resting with no apparent distress Discussed with case management Chart reviewed Vascular surgery saw him again yesterday and is hoping to only have to do TMA in the future instead of BKA if we let his feett tissues try to recover for a few weeks Appreciate vascular input. 08/03/2021 Patient seen and examined Laying comfortably in bed with flat affect Bilateral heel protectors present; Dry gangrene present on bilateral toes and heels; Discussed with the wound care nurse Discussed with patient the need for vascular surgery input regarding foot surgery and potential bilateral BKA Chart reviewed Discussed with RN 08/02/2021 Patient seen and examined Discussed with RN Chart reviewed He is resting with no apparent distress 08/01/2021 Patient seen and examined He seems depressed and very weak He has heel protectors on both the toes that are exposed are extremely gangrenous and black and demarcated Discussed with the wound care nurse He explains that vascular surgery is awaiting the complete demarcation to finish up and then they will consider surgery at that time Chart reviewed Discussed with RN 07/31/2021 Patient seen and examined Discussed plan Chart reviewed Still feeling weak Mr Lambert is a 60-year-old male that presented 06/29/2021 via [facility] with decreased level of consciousness. Most of the history was obtained via EMS and patient's friend Reese [phone], who states that patient has been sick since about June 22 per Reese, he states that they both had cough cold headache sinus type pain. Per Reese's report patient is okay during the day and very alert and orientated and at night he has a decreased alertness. Patient is unable to help with exam when asked questions he does deny any past medical history, surgeries, or any other health conditions. Reese who is his roommate collaborates any information gotten from the patient. Accu-Chek per EMS was 250, room air sat in the room was 88 to 90%. 07/07: not much improved, about the same. cont current. PULM following. we have no clinimix, cont D5 fluid, 07/08: more alert, can try ST again, if able to sit up, still very weak 07/09: much more alert, bedside swallow of water ok, sits upright, much stronger, will try clears if able, ST to follow. toes are worsening, now black, hannah consult podiatry to follow, 07/10: More alert. Working with speech and swallowing today. Off O2. Less confused. Bilateral toe ulcers assessed by podiatry today. 07/11: More alert, eating. Arterial Doppler was left popliteal and severe distal disease bilaterally. Still has a little bit of a cough. Less confused today. 07/12: Eating reasonably well. Tentative plans for angiogram for consideration of limb salvage bilateral feet tomorrow. Discussed with cardiology. He will need significant follow-up care likely eventual amputations. 07/13: N.p.o. for angiogram today with bilateral SFA occlusive disease and left popliteal disease with left posterior tibial artery with some flow otherwise occlusive disease per cardiology. Discussed vascular surgery consultation for consideration of definitive revascularization with likely bilateral transmetatarsal amputations. Still with a little bit of a cough. Shortness of breath 07/14: Seen bedside. Having some pain in his bilateral extremities. Shortness of breath improved still with little bit of cough. Eating again. Amenable to revascularization and likely surgical debridement next week. Increasing thromboprophylaxis 07/15: Seen bedside. Not hypoxic. Cough is improving. He feels he is mental status is improved but he is definitely still mentating slowly. Complains of foot pain. He is contemplating surgical options but is okay with what ever the surgeons to choose for his likely lower extremity bypass tentatively planned for 07/17/202107/16: Bilateral foot pain still with cough but improving. Still is contemplating surgical options. 07/17: Patient off floor for surgery today. Chart evaluated. s/p bilateral pop/tibial thrombectomies with patch angioplasty. s/p RLE hematoma evacuation 07/18: Patient did and examined at bedside. He is postop day 1 from bilateral thrombectomies yesterday. Looks like he may need more surgery prior to discharge. Continue heparin drip. Suspect leukocytosis today secondary to surgery. Continue current. 07/19: Patient evaluated examined at bedside. He was working with physical therapy when seen. Continuing heparin drip. Recheck CBC today. Cardiology following vascular following. Will likely need further surgery prior to discharge. 07/20: Seen at bedside. Having RLE pain and had Hgb drop overnight. Will transfuse. Stop heparin drip for now. Seen by vascular, hematoma evacuation ordered. serial Hgb. 07/21: Patient evaluated examined at bedside. Hemoglobin improved up to 8.1 today. Underwent hematoma evacuation yesterday. Planning for further intervention next week. 07/22: Examine and evaluated at bedside. Resting in bed no major complaints. Hemoglobin stable. Appreciate Cardiology resuming heparin. Further int ervention next week. 07/23: Seen at bedside no motor complaints. Hemoglobin still stable. No major clinical changes for today. Intervention this coming week. 07/24: Seen bedside. Has good appetite no cough shortness of breath or chest pain. Left heel with more gangrenous changes left feet. Plan for n.p.o. after midnight 07/25: Seen bedside. N.p.o. for bilateral foot debridement today. K3. Glucose low 100s. Has a friend visiting today. No chest pain or shortness of breath. Pain controlled. 2/2: Changes in the off heparin drip to Xarelto. No significant anticoagulation for 3 months then can start progressive ambulation with physical therapy with postop shoe per vascular surgery recommendations. No shortness of breath or chest pain today just very weak. 2/3: Up to chair today, has more bilateral foot pain, now wearing post -op shoes. No SOB or cough. He is asking to get back into bed. Encouraged to continue trying to get on his feet. 2: In bed. Foot pain is improved from yesterday. No shortness of breath no cough. Still very weak even weak eating today. 2: Seen in bed. No foot pain today. No shortness of breath or cough. Still weak eating well. Not out of bed today. Glucose low 100s. 26: Seen in bed. Pain-free eating breakfast in bed. Still feeling weak has been up on his foot the last day. Glucose well controlled. Vitals/I&O Vitals/I&O: Vital Signs Date Time Temp Pulse Resp B/P (MAP) Pulse Ox O2 Delivery O2 Flow Rate FiO2 09/04/21 08:59 Room Air 09/04/21 08:59 83 128/78 09/04/21 07:00 97.4 18 93 97.4 I & O 09/03/21 09/03/21 09/04/21 15:00 23:00 07:00 Intake Total 50 ml 200 ml 240 ml Output Total 250 ml Balance -200 ml 200 ml 240 ml Physical Exam Physical Exam: lethargic and weak General: Alert, Oriented X3, Cooperative, No acute distress, Other (Resting) Heart: Regular rate Lungs: Clear Abdomen: Normal bowel sounds Extremities: Other (Bilateral feet wrapped in bandage with dressings c/d/i; bilateral wound vacs in place.) Skin: Other (No further hematoma accumulation) Labs Labs: Laboratory Tests Test 09/03/21 11:27 09/03/21 16:45 09/03/21 20:28 09/04/21 07:23 Glucose (Fingerstick) 116 mg/dL (70-99) 125 mg/dL (70-99) 123 mg/dL (70-99) 116 mg/dL (70-99) Assessment and Plan Assessmemt and Plan Problems Medical Problems: (1) Dehydration Status: Acute (2) Mental status alteration Status: Acute (3) Pneumonia Status: Acute Comment Review of Relevant I have reviewed the following items amanda (where applicable) has been applied. Justifications for Admission Other Justification COVID-19 positive test (U07.1, COVID-19) with Acute Pneumonia (J12.89, Other vir al pneumonia) (If respiratory failure or sepsis present, add as separate assessment) TIFFANY HERNANDEZ MD Sep 04, 2021 11:00
--- NOTE | 2021-09-04 13:14 | PDOC ---
Provider Note Date of Service: DATE: 09/04/21 TIME: 13:05 Provider Note Provider Note No new complaints or concerns. Some pain in the bilateral heels and toes. bilateral heel wounds with vacs in place left TMA site C/D/I sutures in place Right 1st-5th toe amputation sites C/D/I Wound vac change today. Continue local wound carem, may require redebridement of heels Justicifation of Admission Dx: Justifications for Admission: Justification of Admission Dx: MEENAKSHI Cortes DO Sep 04, 2021 13:13
[2021-09-04 15:00] VITALS: BP 114/77
--- NOTE | 2021-09-04 15:44 | NUR ---
Wound Care Wound Type/Assessment: Pt seen for wound care follow up regarding right and left heel PU's. Patient s/p surgical amputation of right and left toes due to possible covid toes. Patient also underwent debridement of left and right heels with vascular. We will continue with veraflo wound vac to be placed on right heel and regular vac to the left heel. the surgical amputation sites on bilateral feet are well approximated with sutures, cleansed with chloraprep and redressed using, Xerofom gauze, ABD pads and kerilx. The heels are both slough covered and minimal granulation tissue with adipose tissue exposed. patient's pain is better today. Treatment Recommendations/Plan: skin prepped and one piece of churchill foam placed into left heel, next black cleanse foam with 20ml NS x 5 min Q2H flush placed on right heel and Y connected and a good seal maintained at 125mmHg continuous. Education provided: to pt re: Patient educated on wound care, wound vac therapy and dressing changes and PU prevention. Offloading surface/device: Patient declined heel medix again today but has done well offloading heels using pillows so they do not touch the bed. Heels offloaded again. Recommended Referrals/Tests: vascular and wound care following. Discharge Recommendations for dressings: No other wounds noted. Bed lowered and call light in reach. Wound care will follow up on 09/06/21 for next wound vac dressing change.
[2021-09-04] MEDS: RIVAROXABAN 10 MG TABLET. PO SCH (17:39)
[2021-09-04 19:00] VITALS: BP 123/57
[2021-09-04] MEDS: ATORVASTATIN CALCIUM 20 MG TABLET PO SCH (22:14)
[2021-09-04 23:00] VITALS: BP 107/67
[2021-09-05 03:00] VITALS: BP 112/61
[2021-09-05 07:15] VITALS: BP 110/68
[2021-09-05] MEDS: INSULIN LISPRO 300 UNITS/3 ML VIAL. SQ SCH ×3 (08:00→12:08)
[2021-09-05] MEDS: PANTOPRAZOLE 40 MG TABLET.DR. PO SCH (08:29)
[2021-09-05] MEDS: ZINC SULFATE 220 MG CAPSULE. PO SCH (08:29)
[2021-09-05] MEDS: ASPIRIN CHEWABLE 81 MG TABLET. PO SCH (08:30)
[2021-09-05] MEDS: ASCORBIC ACID 500 MG TABLET PO SCH (08:30)
[2021-09-05] MEDS: THIAMINE 100 MG TABLET. PO SCH (08:30)
[2021-09-05] MEDS: METOPROLOL TART IMMED RELEASE 25 MG TABLET. PO SCH ×2 (08:30→21:00)
[2021-09-05] MEDS: NYSTATIN TOPICAL POWDER 15GM BOTTLE. TP SCH ×2 (08:34→21:00)
[2021-09-05] MEDS: oxyCODONE/APAP 5/325 1 TAB TABLET PO PRN ×2 (09:50→20:25)
--- NOTE | 2021-09-05 10:59 | PDOC ---
PROGRESS NOTES Date of Service DATE: 09/05/21 TIME: 10:54 Subjective Subjective No acute concerns this am. Objective Objective Vital Signs Date Time Temp Pulse Resp B/P (MAP) Pulse Ox O2 Delivery O2 Flow Rate FiO2 09/05/21 10:34 93 Room Air 3.0 09/05/21 08:30 84 110/68 09/05/21 07:54 97.5 97.5 09/05/21 07:15 18 Intake and Output 09/05/21 07:00 Intake Total 680 ml Output Total 300 ml Balance 380 ml Intake Oral 680 ml Output Urine Total 300 ml # Voids 1 Physical Exam Heart: Regular rate, Other (Palpable popliteal pulses bilaterally,biphasic pt signals bilaterally.) Extremities: Other (On examination of the left heel there is necrotic tissue within the deep fascia overlying the left calcaneus and the wound on the left heel probes to bone. The left toe amputation incisions are well healing.) Assessment Assessment Problems Medical Problems: (1) Dehydration Status: Acute (2) Mental status alteration Status: Acute (3) Pneumonia Status: Acute Plan Plan of Care Discussed with patient further surgical debridement of heel ulcerations is likely to result in exposure of calcaneal bone bilaterally which is very unlikely to heal with months of prolonged wound care. Additionally discussed that given his limited support wound care will be difficult. Discussed bilateral below knee amputations which would be very likely to heal and alleviate the wound burden on both heels. He has palpable popliteal pulses. With amputation he is more likely to be ambulatory and achieve wound healing within the next 3 months. Xarelto would need to be held for amputations or debridements. Will hold xarelto and start lovenox now to allow for surgical intervention in near future Comment Review of Relevant I have reviewed the following items amanda (where applicable) has been applied. Labs Laboratory Tests Test 09/03/21 11:27 09/03/21 16:45 09/03/21 20:28 09/04/21 07:23 Glucose (Fingerstick) 116 mg/dL (70-99) 125 mg/dL (70-99) 123 mg/dL (70-99) 116 mg/dL (70-99) Test 09/04/21 11:50 09/04/21 17:05 09/04/21 19:45 09/05/21 07:26 Glucose (Fingerstick) 133 mg/dL (70-99) 128 mg/dL (70-99) 118 mg/dL (70-99) 113 mg/dL (70-99) Test 09/05/21 10:26 Glucose (Fingerstick) 128 mg/dL (70-99) Laboratory Tests Test 09/04/21 11:50 09/04/21 17:05 09/04/21 19:45 09/05/21 07:26 Glucose (Fingerstick) 133 mg/dL (70-99) 128 mg/dL (70-99) 118 mg/dL (70-99) 113 mg/dL (70-99) Test 09/05/21 10:26 Glucose (Fingerstick) 128 mg/dL (70-99) Microbiology 08/29/21 Gram Stain - Final, Complete 08/29/21 Aerobic and Anaerobic Culture - Final, Complete Staphylococcus Aureus Staphylococcus Aureus#2 Finegoldia Magna Medications Current Medications Sodium Chloride 1,000 ml @ 999 mls/hr 1X ONCE IV Last administered on 06/29/21at 19:10; Start 06/29/21 at 19:00; Stop 06/29/21 at 20:00; Status DC Dexamethasone Sodium Phosphate (Decadron) 10 mg 1X ONCE IV Last administered on 06/29/21at 20:30; Start 06/29/21 at 20:00; Stop 06/29/21 at 20:05; Status DC Sodium Chloride 1,000 ml @ 999 mls/hr 1X ONCE IV Last administered on 06/29/21at 20:30; Start 06/29/21 at 20:00; Stop 06/29/21 at 21:00; Status DC Ceftriaxone Sodium (Rocephin) 1 gm 1X ONCE IVP Last administered on 06/29/21at 20:29; Start 06/29/21 at 20:00; Stop 06/29/21 at 20:05; Status DC Azithromycin 250 ml @ 250 mls/hr 1X ONCE IV Last administered on 06/29/21at 20: 00; Start 06/29/21 at 20:00; Stop 06/29/21 at 20:59; Status DC Sodium Chloride 1,000 ml @ 75 mls/hr [id number] IV Last administered on 06/30/21at 12:32; Start 06/29/21 at 20:45; Stop 06/30/21 at 20:44; Status DC Info (FLU VACCINE SCREEN per RX) 0.5 each 1X ONCE MC ; Start 07/01/21 at 09:00; Stop 07/01/21 at 09:01; Status DC Ascorbic Acid (Vitamin C) 3,000 mg TID PO Last administered on 07/25/21at 12:10; Start 06/30/21 at 21:00; Stop 07/25/21 at 15:43; Status DC Dexamethasone Sodium Phosphate (Decadron) 6 mg DAILY IVP Last administered on 07/10/21at 08:57; Start 06/30/21 at 16:00; Stop 07/10/21 at 12:29; Status DC Thiamine Mononitrate (Vitamin B-1) 300 mg DAILY PO Last administered on 07/25/21at 12:10; Start 06/30/21 at 16:00; Stop 07/25/21 at 15:43; Status DC Zinc Sulfate (Orazinc) 220 mg DAILY PO Last administered on 09/05/21at 08:29; Start 06/30/21 at 16:00 Sennosides (Senna) 17.2 mg PRN BID PRN PO CONSTIPATION Last administered on 08/13/21at 09:08; Start 06/30/21 at 15:15 Docusate Sodium (Colace) 100 mg PRN DAILY PRN PO HARD STOOLS Last administered on 08/13/21at 09:08; Start 06/30/21 at 15:15 Ondansetron HCl (Zofran) 4 mg PRN Q6HRS PRN IVP NAUSEA/VOMITING, 1st CHOICE; Start 06/30/21 at 15:15; Stop 07/05/21 at 14:02; Status DC Dextrose (Dextrose 50%-Water Syringe) 12.5 gm PRN Q15MIN PRN IV SEE COMMENTS; Start 06/30/21 at 15:15; Stop 07/05/21 at 12:45; Status DC Acetaminophen (Tylenol) 650 mg PRN Q4HRS PRN PO TEMP OVER 100.4F OR MILD PAIN; Start 06/30/21 at 15:15 Lorazepam (Ativan) 0.5 mg PRN Q6HRS PRN PO ANXIETY / AGITATION; Start 06/30/21 at 15:15; Stop 07/05/21 at 14:02; Status DC Lorazepam (Ativan Inj) 0.25 mg PRN Q4HRS PRN IV ANXIETY / AGITATION; Start 06/30/21 at 15:15; Stop 07/05/21 at 14:02; Status DC Enoxaparin Sodium (Lovenox 40mg Syringe) 40 mg Q24H SQ Last administered on 07/13/21at 17:20; Start 06/30/21 at 16:00; Stop 07/14/21 at 12:21; Status DC Prochlorperazine Edisylate (Compazine) 10 mg PRN Q6HRS PRN IV NAUSEA/VOMITING, 2nd CHOICE; Start 06/30/21 at 15:15; Stop 07/05/21 at 14:02; Status DC Diphenhydramine HCl (Benadryl) 25 mg PRN Q6HRS PRN IVP ITCHING; Start 06/30/21 at 15:15; Stop 07/05/21 at 14:02; Status DC Diphenhydramine HCl (Benadryl) 25 mg PRN Q6HRS PRN PO ITCHING; Start 06/30/21 at 15:15; Stop 07/05/21 at 14:02; Status DC Diphenhydramine HCl (Benadryl) 25 mg PRN QHS PRN PO INSOMNIA, 1ST CHOICE; Start 06/30/21 at 15:15; Stop 07/05/21 at 14:02; Status DC Zolpidem Tartrate (Ambien) 2.5 mg PRN QHS PRN PO INSOMNIA, 2ND CHOICE; Start 06/30/21 at 15:15; Stop 07/05/21 at 14:02; Status DC Pantoprazole Sodium (PROTONIX VIAL for IV PUSH) 40 mg DAILYAC IVP Last administered on 07/27/21at 08:44; Start 06/30/21 at 16:00; Stop 07/27/21 at 16:51; Status DC Amino Acids/ Electrolytes/ Dextrose 1,000 ml @ 80 mls/hr [id number] IV ; Start 07/04/21 at 09:15; Status UNV Dextrose/Lactated Ringer's 1,000 ml @ 80 mls/hr [id number] IV Last administered on 07/12/21at 06:27; Start 07/04/21 at 09:30; Stop 07/12/21 at 10:58; Status DC Insulin Human Lispro (HumaLOG) 0-5 UNITS TIDWMEALS SQ Last administered on 08/16/21at 12:05; Start 07/05/21 at 17:00 Dextrose (Dextrose 50%-Water Syringe) 12.5 gm PRN Q15MIN PRN IV SEE COMMENTS Last administered on 07/09/21at 23:48; Start 07/05/21 at 12:45 Aspirin (Ecotrin) 81 mg DAILYWBKFT PO Last administered on 07/20/21at 08:52; Start 07/11/21 at 15:00; Stop 07/20/21 at 14:10; Status DC Atorvastatin Calcium (Lipitor) 20 mg QHS PO Last administered on 09/04/21at 22:14; Start 07/11/21 at 21:00 Metoprolol Tartrate (Lopressor) 25 mg BID PO Last administered on 09/05/21at 08:30; Start 07/12/21 at 12:15 Heparin Sodium/ Sodium Chloride (HEPARIN for ARTERIAL LINE FLUSH) 1,000 unit 1X ONCE IART Last administered on 07/13/21at 13:00; Start 07/13/21 at 13:00; Stop 07/13/21 at 13:01; Status DC Heparin Sodium/ Sodium Chloride (HEPARIN for ARTERIAL LINE FLUSH) 1,000 unit 1X ONCE IART Last administered on 07/13/21at 13:00; Start 07/13/21 at 13:00; Stop 07/13/21 at 13:01; Status DC Midazolam HCl (Versed) 2 mg 1X ONCE IV Last administered on 07/13/21at 13:20; Start 07/13/21 at 13:00; Stop 07/13/21 at 13:01; Status DC Fentanyl Citrate (Fentanyl 2ml Vial) 100 mcg 1X ONCE IV Last administered on 07/13/21at 13:20; Start 07/13/21 at 13:00; Stop 07/13/21 at 13:01; Status DC Iodixanol (Visipaque 320) 100 ml 1X ONCE IART Last administered on 07/13/21at 13:50; Start 07/13/21 at 13:00; Stop 07/13/21 at 13:01; Status DC Lidocaine HCl (Lidocaine 1% 20ml Vial) 20 ml 1X ONCE INJ Last administered on 07/13/21at 13:22; Start 07/13/21 at 13:00; Stop 07/13/21 at 13:01; Status DC Nitroglycerin (Nitroglycerin) 200 mcg 1X ONCE IART Last administered on 07/13/21at 13:23; Start 07/13/21 at 13:30; Stop 07/13/21 at 13:35; Status DC Verapamil HCl (Verapamil) 2.5 mg 1X ONCE IART Last administered on 07/13/21at 13:23; Start 07/13/21 at 13:30; Stop 07/13/21 at 13:35; Status DC Heparin Sodium (Porcine) (Heparin Sodium) 2,500 unit 1X ONCE IART Last administered on 07/13/21at 13:30; Start 07/13/21 at 13:30; Stop 07/13/21 at 13:35; Status DC Potassium Chloride (Klor-Con) 20 meq 1X ONCE PO Last administered on 07/14/21at 11:48; Start 07/14/21 at 11:00; Stop 07/14/21 at 11:01; Status DC Enoxaparin Sodium (Lovenox 80mg Syringe) 80 mg Q12HR SQ Last administered on 07/16/21at 21:01; Start 07/14/21 at 13:00; Stop 07/17/21 at 12:12; Status DC Fentanyl Citrate (Fentanyl 2ml Vial) 25 mcg PRN Q5MIN PRN IVP MILD PAIN 1-3; Start 07/17/21 at 06:00; Stop 07/18/21 at 06:00; Status DC Fentanyl Citrate (Fentanyl 2ml Vial) 50 mcg PRN Q5MIN PRN IVP MODERATE PAIN 4- 6; Start 07/17/21 at 06:00; Stop 07/18/21 at 06:00; Status DC Morphine Sulfate (Morphine Sulfate) 1 mg PRN Q10MIN PRN IVP SEVERE PAIN 7-10; Start 07/17/21 at 06:00; Stop 07/18/21 at 06:00; Status DC Ringer's Solution 1,000 ml @ 30 mls/hr Q24H IV Last administered on 07/17/21at 07:50; Start 07/17/21 at 06:00; Stop 07/17/21 at 17:59; Status DC Hydromorphone HCl (Dilaudid) 0.5 mg PRN Q10MIN PRN IVP SEVERE PAIN 7-10, 2nd CHOICE; Start 07/17/21 at 06:00; Stop 07/18/21 at 06:00; Status DC Prochlorperazine Edisylate (Compazine) 5 mg PACU PRN PRN IVP NAUSEA, MRX1; Start 07/17/21 at 06:00; Stop 07/18/21 at 06:00; Status DC Cefazolin Sodium 1 gm/Sodium Chloride 500 ml @ 500 mls/hr 1X ONCE IRR Last administered on 07/17/21at 08:57; Start 07/17/21 at 08:00; Stop 07/17/21 at 08:59; Status DC Heparin Sodium (Porcine) 5000 unit/Sodium Chloride 505 ml @ 505 mls/hr 1X ONCE IRR Last administered on 07/17/21at 08:57; Start 07/17/21 at 08:00; Stop 07/17/21 at 08:59; Status DC Sodium Chloride 1,000 ml @ 100 mls/hr Q10H IV Last administered on 07/21/21at 10:38; Start 07/17/21 at 12:00; Stop 07/21/21 at 15:21; Status DC Morphine Sulfate (Morphine Sulfate) 2 mg PRN Q2HR PRN IVP PAIN Last administered on 07/20/21at 09:38; Start 07/17/21 at 08:15; Stop 07/28/21 at 10:15; Status DC Oxycodone/ Acetaminophen (Percocet 5/325) 1 tab PRN Q4HRS PRN PO MODERATE PAIN Last administered on 08/27/21at 18:11; Start 07/17/21 at 08:15 Sugammadex Sodium (Bridion) 200 mg 1X ONCE IVP ; Start 07/17/21 at 09:30; Stop 07/17/21 at 09:31; Status DC Cefazolin Sodium 1 gm/Sodium Chloride 500 ml @ 500 mls/hr 1X ONCE IRR Last administered on 07/17/21at 10:30; Start 07/17/21 at 10:30; Stop 07/17/21 at 11:29; Status DC Cellulose (Surgicel Fibrillar 1x2) 1 each STK-MED ONCE TP Last administered on 07/17/21at 11:23; Start 07/17/21 at 11:23; Stop 07/17/21 at 11:26; Status DC Heparin Sodium/ Dextrose 250 ml @ 10 mls/hr q10hr IV ; Start 07/17/21 at 12:15; Stop 07/17/21 at 12:15; Status DC Cefazolin Sodium/ Dextrose 50 ml @ 100 mls/hr Q8HRS IV Last administered on 07/17/21at 19:52; Start 07/17/21 at 14:00; Stop 07/17/21 at 22:29; Status DC Heparin Sodium/ Dextrose 250 ml @ 10 mls/hr q10hr IV ; Start 07/17/21 at 12:15; Stop 07/17/21 at 13:04; Status DC Heparin Sodium/ Dextrose 250 ml @ 10 mls/hr CONT PRN PRN IV SEE PROTOCOL Last administered on 07/17/21at 13:00; Start 07/17/21 at 13:15; Stop 07/18/21 at 11:06; Status DC Heparin Sodium/ Dextrose 250 ml @ 13.264 mls/ hr CONT PRN IV PER PROTOCOL Last administered on 07/19/21at 21:46; Start 07/18/21 at 11:15; Stop 07/20/21 at 09:38; Status DC Heparin Sodium (Porcine) (Heparin Sodium) 2,500 unit PRN Q6HRS PRN IV FOR UFH LEVEL LESS THAN 0.2; Start 07/18/21 at 11:15; Stop 07/20/21 at 13:11; Status DC Heparin Sodium (Porcine) (Heparin Sodium) 1,250 unit PRN Q6HRS PRN IV FOR UFH LEVEL 0.2 - 0.29 Last administered on 07/18/21at 20:10; Start 07/18/21 at 11:15; Stop 07/20/21 at 13:11; Status DC Glycopyrrolate (Glycopyrrolate) 1 mg STK-MED ONCE .ROUTE ; Start 07/17/21 at 12:00; Stop 07/18/21 at 12:44; Status DC Heparin Sodium/ Sodium Chloride 500 ml @ As Directed STK-MED ONCE .ROUTE ; Start 07/13/21 at 08:02; Stop 07/18/21 at 12:49; Status DC Iodixanol (Visipaque 320) 100 ml STK-MED ONCE .ROUTE ; Start 07/13/21 at 08:02; Stop 07/18/21 at 12:49; Status DC Heparin Sodium/ Sodium Chloride 1,000 ml @ As Directed STK-MED ONCE .ROUTE ; Start 07/13/21 at 12:45; Stop 07/18/21 at 12:53; Status DC Midazolam HCl (Versed) 2 mg STK-MED ONCE .ROUTE ; Start 07/13/21 at 12:46; Stop 07/18/21 at 12:53; Status DC Fentanyl Citrate (Fentanyl 2ml Vial) 100 mcg STK-MED ONCE .ROUTE ; Start 07/13/21 at 12:46; Stop 07/18/21 at 12:53; Status DC Heparin Sodium (Porcine) (Heparin Sodium) 10,000 unit STK-MED ONCE .ROUTE ; Start 07/13/21 at 12:52; Stop 07/18/21 at 12:53; Status DC Verapamil HCl (Verapamil) 5 mg STK-MED ONCE .ROUTE ; Start 07/13/21 at 13:12; Stop 07/18/21 at 12:53; Status DC Cellulose (Surgicel Fibrillar 1x2) 1 each STK-MED ONCE .ROUTE ; Start 07/17/21 at 07:08; Stop 07/18/21 at 13:29; Status DC Iohexol (Omnipaque 300 Mg/ml) 50 ml STK-MED ONCE .ROUTE ; Start 07/17/21 at 07:08; Stop 07/18/21 at 13:29; Status DC Protamine Sulfate (Protamine) 50 mg STK-MED ONCE IV ; Start 07/17/21 at 07:08; Stop 07/18/21 at 13:29; Status DC Phenylephrine HCl (Jesus-Synephrine Inj) 10 mg STK-MED ONCE .ROUTE ; Start 07/17/21 at 05:34; Stop 07/18/21 at 13:30; Status DC Ephedrine Sulfate (ePHEDrine PF IN SALINE SYRINGE) 50 mg STK-MED ONCE IV ; Start 07/17/21 at 05:34; Stop 07/18/21 at 13:30; Status DC Succinylcholine Chloride (Anectine) 200 mg STK-MED ONCE .ROUTE ; Start 07/17/21 at 05:35; Stop 07/18/21 at 13:30; Status DC Epinephrine HCl (Adrenalin) 1 mg STK-MED ONCE .ROUTE ; Start 07/17/21 at 05:35; Stop 07/18/21 at 13:30; Status DC Protamine Sulfate (Protamine) 50 mg STK-MED ONCE IV ; Start 07/17/21 at 07:35; Stop 07/18/21 at 13:31; Status DC Heparin Sodium (Porcine) (Heparin Sodium) 10,000 unit STK-MED ONCE .ROUTE ; Start 07/17/21 at 07:35; Stop 07/18/21 at 13:31; Status DC Dexamethasone Sodium Phosphate (Decadron) 4 mg STK-MED ONCE .ROUTE ; Start 07/17/21 at 07:35; Stop 07/18/21 at 13:31; Status DC Ondansetron HCl (Zofran) 4 mg STK-MED ONCE .ROUTE ; Start 07/17/21 at 07:35; Stop 07/18/21 at 13:31; Status DC Epinephrine HCl (EPINEPHrine SYRINGE) 1 mg STK-MED ONCE .ROUTE ; Start 07/17/21 at 07:35; Stop 07/18/21 at 13:31; Status DC Midazolam HCl (Versed) 2 mg STK-MED ONCE .ROUTE ; Start 07/17/21 at 07:37; Stop 07/18/21 at 13:31; Status DC Fentanyl Citrate (Fentanyl 5ml Vial) 250 mcg STK-MED ONCE .ROUTE ; Start 07/17/21 at 07:37; Stop 07/18/21 at 13:31; Status DC Cefazolin Sodium/ Dextrose 50 ml @ As Directed STK-MED ONCE IV ; Start 07/17/21 at 08:51; Stop 07/18/21 at 13:35; Status DC Hydromorphone HCl (Dilaudid) 2 mg STK-MED ONCE .ROUTE ; Start 07/17/21 at 11:54; Stop 07/18/21 at 13:36; Status DC Fentanyl Citrate (Fentanyl 2ml Vial) 100 mcg STK-MED ONCE .ROUTE ; Start 07/17/21 at 11:54; Stop 07/18/21 at 13:36; Status DC Morphine Sulfate (Morphine Sulfate) 2 mg STK-MED ONCE .ROUTE ; Start 07/17/21 at 11:55; Stop 07/18/21 at 13:36; Status DC Cefazolin Sodium/ Dextrose 50 ml @ 100 mls/hr 1X PREOP PRN IV PRIOR TO PROCEDURE Last administered on 07/20/21at 15:45; Start 07/20/21 at 14:00; Stop 07/21/21 at 13:59; Status DC Cefazolin Sodium/ Dextrose 50 ml @ As Directed STK-MED ONCE IV ; Start 07/20/21 at 13:50; Stop 07/20/21 at 13:50; Status DC Propofol (Diprivan) 200 mg STK-MED ONCE IV ; Start 07/20/21 at 14:06; Stop 07/20/21 at 14:07; Status DC Lidocaine HCl (Xylocaine-Mpf 1% 5ml Vial) 5 ml STK-MED ONCE .ROUTE ; Start 07/20/21 at 14:07; Stop 07/20/21 at 14:07; Status DC Fentanyl Citrate (Fentanyl 2ml Vial) 100 mcg STK-MED ONCE .ROUTE ; Start 07/20/21 at 14:07; Stop 07/20/21 at 14:07; Status DC Cellulose (Surgicel Fibrillar 1x2) 1 each STK-MED ONCE .ROUTE Last administered on 07/20/21at 16:07; Start 07/20/21 at 16:04; Stop 07/20/21 at 16:05; Status DC Fentanyl Citrate (Fentanyl 2ml Vial) 25 mcg PRN Q5MIN PRN IVP MILD PAIN 1-3; Start 07/20/21 at 16:15; Stop 07/21/21 at 02:00; Status DC Fentanyl Citrate (Fentanyl 2ml Vial) 50 mcg PRN Q5MIN PRN IVP MODERATE PAIN 4- 6; Start 07/20/21 at 16:15; Stop 07/21/21 at 02:00; Status DC Morphine Sulfate (Morphine Sulfate) 1 mg PRN Q10MIN PRN IVP SEVERE PAIN 7-10; Start 07/20/21 at 16:15; Stop 07/21/21 at 02:00; Status DC Hydromorphone HCl (Dilaudid) 0.5 mg PRN Q10MIN PRN IVP SEVERE PAIN 7-10, 2nd CHOICE; Start 07/20/21 at 16:15; Stop 07/21/21 at 02:00; Status DC Prochlorperazine Edisylate (Compazine) 5 mg PACU PRN PRN IVP NAUSEA, MRX1; Start 07/20/21 at 16:15; Stop 07/25/21 at 07:58; Status DC Insulin Human Lispro (HumaLOG VIAL for OP,RR ONLY) 0-10 units PRN Q1HR PRN SQ P ER PROTOCOL; Start 07/20/21 at 16:15; Stop 07/21/21 at 16:14; Status DC Cefazolin Sodium/ Dextrose 50 ml @ 100 mls/hr Q8HRS IV Last administered on 07/21/21at 05:21; Start 07/20/21 at 22:00; Stop 07/21/21 at 06:29; Status DC Oxycodone/ Acetaminophen (Percocet 5/325) 2 tab PRN Q4HRS PRN PO SEVERE PAIN Last administered on 09/05/21at 09:50; Start 07/20/21 at 16:45 Hydromorphone HCl (Dilaudid) 2 mg STK-MED ONCE .ROUTE ; Start 07/20/21 at 16:50; Stop 07/20/21 at 16:50; Status DC Aspirin (Aspirin Chewable) 81 mg DAILYWBKFT PO Last administered on 09/05/21at 08:30; Start 07/23/21 at 08:00 Heparin Sodium/ Dextrose 250 ml @ 8.789 mls/ hr CONT PRN IV PER PROTOCOL Last administered on 07/25/21at 20:23; Start 07/22/21 at 16:30; Stop 07/26/21 at 13:44; Status DC Heparin Sodium (Porcine) (Heparin Sodium) 2,000 unit PRN Q6HRS PRN IV FOR UFH LEVEL LESS THAN 0.2 Last administered on 07/23/21at 01:17; Start 07/22/21 at 16:30; Stop 07/26/21 at 13:44; Status DC Cefazolin Sodium/ Dextrose 50 ml @ 100 mls/hr 1X PREOP PRN IV PRIOR TO PROCEDURE; Start 07/25/21 at 06:00; Stop 07/25/21 at 18:00; Status DC Cefazolin Sodium 1 gm/Sodium Chloride 500 ml @ 500 mls/hr 1X ONCE IRR ; Start 07/25/21 at 06:00; Stop 07/25/21 at 07:00; Status DC Fentanyl Citrate (Fentanyl 2ml Vial) 25 mcg PRN Q5MIN PRN IVP MILD PAIN 1-3; Start 07/25/21 at 06:00; Stop 07/25/21 at 20:00; Status DC Fentanyl Citrate (Fentanyl 2ml Vial) 50 mcg PRN Q5MIN PRN IVP MODERATE PAIN 4- 6; Start 07/25/21 at 06:00; Stop 07/25/21 at 20:00; Status DC Morphine Sulfate (Morphine Sulfate) 1 mg PRN Q10MIN PRN IVP SEVERE PAIN 7-10; Start 07/25/21 at 06:00; Stop 07/25/21 at 20:00; Status DC Ringer's Solution 1,000 ml @ 30 mls/hr Q24H IV Last administered on 07/25/21at 07:58; Start 07/25/21 at 06:00; Stop 07/25/21 at 17:59; Status DC Hydromorphone HCl (Dilaudid) 0.5 mg PRN Q10MIN PRN IVP SEVERE PAIN 7-10, 2nd CHOICE; Start 07/25/21 at 06:00; Stop 07/25/21 at 20:00; Status DC Prochlorperazine Edisylate (Compazine) 5 mg PACU PRN PRN IVP NAUSEA, MRX1; Start 07/25/21 at 06:00; Stop 07/25/21 at 20:00; Status DC Propofol (Diprivan) 200 mg STK-MED ONCE IV ; Start 07/25/21 at 06:52; Stop 07/25/21 at 06:53; Status DC Fentanyl Citrate (Fentanyl 2ml Vial) 100 mcg STK-MED ONCE .ROUTE ; Start 07/25/21 at 06:53; Stop 07/25/21 at 06:53; Status DC Rocuronium [place] (Zemuron) 50 mg STK-MED ONCE .ROUTE ; Start 07/25/21 at 06:59; Stop 07/25/21 at 06:59; Status DC Ondansetron HCl (Zofran) 4 mg STK-MED ONCE .ROUTE ; Start 07/25/21 at 07:08; Stop 07/25/21 at 07:08; Status DC Dexamethasone Sodium Phosphate (Decadron) 4 mg STK-MED ONCE .ROUTE ; Start 07/25/21 at 07:08; Stop 07/25/21 at 07:08; Status DC Potassium Chloride/Water 100 ml @ 100 mls/hr Q1H IV Last administered on 07/25/21at 13:25; Start 07/25/21 at 08:00; Stop 07/25/21 at 13:59; Status DC Lidocaine HCl (Xylocaine 1% Pf 30ml Vial) 30 ml STK-MED ONCE .ROUTE ; Start 07/25/21 at 07:55; Stop 07/25/21 at 07:56; Status DC Ascorbic Acid (Vitamin C) 500 mg DAILY PO Last administered on 09/05/21at 08:30; Start 07/26/21 at 09:00 Thiamine Mononitrate (Vitamin B-1) 100 mg DAILY PO Last administered on 09/05/21at 08:30; Start 07/26/21 at 09:00 Rivaroxaban (Xarelto) 20 mg DAILYWSUP PO Last administered on 09/04/21at 17:39; Start 07/26/21 at 17:00 Pantoprazole Sodium (Protonix) 40 mg DAILYAC PO Last administered on 09/05/21at 08:29; Start 07/28/21 at 07:30 Nystatin (Nystop) 1 alison BID TP Last administered on 09/05/21at 08:34; Start 08/03/21 at 21:00 Info (Anti-Coagulation Monitoring By Pharmacy) 1 each PRN DAILY PRN MC PER PROTOCOL Last administered on 08/27/21at 10:46; Start 08/05/21 at 12:30 Cefazolin Sodium 1 gm/Sodium Chloride 500 ml @ 500 mls/hr 1X ONCE IRR Last administered on 08/29/21at 07:39; Start 08/29/21 at 06:00; Stop 08/29/21 at 06:59; Status DC Fentanyl Citrate (Fentanyl 2ml Vial) 25 mcg PRN Q5MIN PRN IVP MILD PAIN 1-3; Start 08/29/21 at 06:00; Stop 08/29/21 at 11:45; Status DC Fentanyl Citrate (Fentanyl 2ml Vial) 50 mcg PRN Q5MIN PRN IVP MODERATE PAIN 4-6 Last administered on 08/29/21at 09:33; Start 08/29/21 at 06:00; Stop 08/29/21 at 11:45; Status DC Morphine Sulfate (Morphine Sulfate) 1 mg PRN Q10MIN PRN IVP SEVERE PAIN 7-10 Last administered on 08/29/21at 10:10; Start 08/29/21 at 06:00; Stop 08/29/21 at 11:45; Status DC Ringer's Solution 1,000 ml @ 30 mls/hr Q24H IV Last administered on 08/29/21at 07:06; Start 08/29/21 at 06:00; Stop 08/29/21 at 17:59; Status DC Hydromorphone HCl (Dilaudid) 0.5 mg PRN Q10MIN PRN IVP SEVERE PAIN 7-10, 2nd CHOICE; Start 08/29/21 at 06:00; Stop 08/29/21 at 11:45; Status DC Prochlorperazine Edisylate (Compazine) 5 mg PACU PRN PRN IVP NAUSEA, MRX1; Start 08/29/21 at 06:00; Stop 08/29/21 at 11:45; Status DC Cefazolin Sodium/ Dextrose 50 ml @ 100 mls/hr 1X PREOP PRN IV PRIOR TO PROCEDURE Last administered on 08/29/21at 07:18; Start 08/29/21 at 06:00; Stop 08/29/21 at 11:44; Status DC Fentanyl Citrate (Fentanyl 2ml Vial) 100 mcg STK-MED ONCE .ROUTE ; Start 08/29/21 at 06:51; Stop 08/29/21 at 06:51; Status DC Dexamethasone Sodium Phosphate (Decadron) 4 mg STK-MED ONCE .ROUTE ; Start 08/29/21 at 06:51; Stop 08/29/21 at 06:52; Status DC Ondansetron HCl (Zofran) 4 mg STK-MED ONCE .ROUTE ; Start 08/29/21 at 06:51; Stop 08/29/21 at 06:52; Status DC Lidocaine HCl (Lidocaine Pf 2% Vial) 5 ml STK-MED ONCE .ROUTE ; Start 08/29/21 at 06:51; Stop 08/29/21 at 06:52; Status DC Lidocaine HCl (Lidocaine Pf 2% Vial) 5 ml STK-MED ONCE .ROUTE ; Start 08/29/21 at 06:51; Stop 08/29/21 at 06:52; Status DC Propofol (Diprivan) 200 mg STK-MED ONCE IV ; Start 08/29/21 at 06:51; Stop 08/29/21 at 06:52; Status DC Cefazolin Sodium/ Dextrose 50 ml @ As Directed STK-MED ONCE IV ; Start 08/29/21 at 07:02; Stop 08/29/21 at 07:02; Status DC Ketamine HCl (Ketamine) 50 mg STK-MED ONCE .ROUTE ; Start 08/29/21 at 07:56; S top 08/29/21 at 07:56; Status DC Cefazolin Sodium (Ancef) 1 gm Q8H IVP Last administered on 08/30/21at 06:34; Start 08/29/21 at 15:00; Stop 08/30/21 at 07:01; Status DC Fentanyl Citrate (Fentanyl 2ml Vial) 100 mcg STK-MED ONCE .ROUTE ; Start 08/29/21 at 09:17; Stop 08/29/21 at 09:18; Status DC Morphine Sulfate (Morphine Sulfate) 2 mg STK-MED ONCE .ROUTE ; Start 08/29/21 at 09:50; Stop 08/29/21 at 09:51; Status DC Cefazolin Sodium/ Dextrose (Ancef 2gm Premix) 2 gm STK-MED ONCE IV ; Start 08/29/21 at 07:02; Stop 08/30/21 at 10:43; Status DC Phenylephrine HCl (PHENYLEPHRINE in 0.9% NACL PF) 1 mg STK-MED ONCE IV ; Start 08/29/21 at 07:01; Stop 09/01/21 at 09:16; Status DC Active Scripts Active No Active Prescriptions or Reported Medications Vitals/I & O Vital Sign - Last 24 Hours 09/04/21 09/04/21 09/04/21 09/04/21 11:00 12:20 13:50 14:50 Temp 97.4 97.4 Pulse 78 Resp 18 B/P (MAP) 117/76 (90) Pulse Ox 97 97 97 97 O2 Delivery Room Air Room Air Room Air Room Air O2 Flow Rate 3.0 3.0 3.0 09/04/21 09/04/21 09/04/21 09/04/21 15:00 17:41 19:00 20:30 Temp 97.4 97.5 97.4 97.5 Pulse 90 89 Resp 18 20 B/P (MAP) 114/77 (89) 123/57 (79) Pulse Ox 94 94 95 O2 Delivery Room Air Room Air Room Air Room Air O2 Flow Rate 3.0 09/04/21 09/04/21 09/05/21 09/05/21 22:14 23:00 03:00 07:15 Temp 97.5 97.5 97.5 97.5 Pulse 89 92 84 84 Resp 20 18 18 B/P (MAP) 123/57 107/67 (80) 112/61 (78) 110/68 (82) Pulse Ox 93 95 93 O2 Delivery Room Air Room Air Room Air 09/05/21 09/05/21 09/05/21 09/05/21 07:54 08:00 08:30 09:50 Temp 97.5 97.5 Pulse 84 B/P (MAP) 110/68 O2 Delivery Room Air Room Air 09/05/21 10:34 Pulse Ox 93 O2 Delivery Room Air O2 Flow Rate 3.0 Intake and Output 09/04/21 09/04/21 09/05/21 15:00 23:00 07:00 Intake Total 480 ml 200 ml 0 ml Output Total 300 ml Balance 480 ml -100 ml 0 ml Justifications for Admission Other Justification COVID-19 positive test (U07.1, COVID-19) with Acute Pneumonia (J12.89, Other viral pneumonia) (If respiratory failure or sepsis present, add as separate assessment) GABRIELE AVITIA MD Sep 05, 2021 10:59
[2021-09-05 11:02] VITALS: BP 103/68
--- NOTE | 2021-09-05 13:00 | NUR ---
Wound Care Wound Type/Assessment: 61 year old male, S/P bilateral foot digital amputations and bilateral heel debridements. Patient was seen to day with Dr. Javi García MD from Vascular Surgery. Wound vac was taken down for Dr. García to see the spongy, boggy heels that probed to bone. Dr. García was in agreement with evaluation and recommended at a minimum further debridement but more likely needing staged bilateral BKA's. Wound vac was asked to be discontinued by Dr. García. Will await decision on treatment options by the patient regarding surgical intervention. Treatment Recommendations/Plan: Simple dressing of Xeroform and foam applied bilaterally to heel wounds. Education provided: Dr. García answered all questions from patient. Offloading surface/device: Heels floated bilaterally on pillows. Recommended Referrals/Tests: Discharge Recommendations for dressings: To be decided.
[2021-09-05 14:50] VITALS: BP 111/61
--- NOTE | 2021-09-05 17:41 | PDOC ---
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 s/p bilateral pop/tibial thrombectomies with patch angioplasty s/p RLE hematoma evacuation Metabolic cephalopathy Probable Covid toes IVORY Lactic acidosis Dysphagia Malnutrition Heel erythema Poor nail care Severe malnutrition History of Present Illness History of Present Illness 09/05 Patient evaluated examined at bedside. Thinking about if he is agreeable to further surgical intervention. Xarelto switched to Lovenox today in event he is. Continue current otherwise. 09/04/2021: Patient evaluated at bedside. Wound VAC to bilateral feet. Patient being rescreened for acute rehab. He has no complaints today; denies significant pain to bilateral feet. Encourage working with PT/OT. 09/03 Evaluated examined at bedside. Continue current with wound care therapy antibiotics. Discussed with bedside RN. 09/02 Evaluated examined at bedside. Pain controlled. Wound VAC still in place. Continue antibiotics. Therapy modalities 09/01/2021: Patient has no complaints today, reports minimal pain in his bilateral feet. Bilateral wound vacs are in place; he has been nonweightbearing and offloading his heels. He will work with physical therapy and Occupational Therapy today as much as tolerated. Discussed with RN. 08/31 Thuy and examined at bedside. POD2. Pain well controlled. PT/OT. Vascular following. 08/30/2021: Patient seen and examined at bedside. POD #1, s/p partial amputation of right first through fifth digit, left TMA, bilateral heel debridement. He is resting in bed comfortably, but does report some residual bilateral feet pain that is controlled with medication. States he has been instructed to rest his heels and has not yet worked with PT/OT. Perhaps we can get him to do some exercises that the head of the bed today. Denies fever, nausea, or vomiting. 08/29 Evaluated examined at bedside. Some lower extremity pain. Eager for surgery today. Continue current plan. will follow-up with the patient again after surgery 08/28/2021: Afebrile. Patient denies chest pain or shortness of breath. He reports some left lower extremity pain that is controlled with medications. Reportedly has plans for surgical amputation of left toes tomorrow. 08/26/2021 No acute events overnight. Patient seen examined bedside. No complaints at this time. Pain is well controlled. Patient is ready for surgery on Friday 08/25: Seen bedside. Able to get up. Pain is well controlled. No chest pain or shortness of breath. Continue therapy modalities. Discussed with RN. 08/24: Seen bedside. Has been working with therapy feels is getting stronger. He tells me he thinks he is getting surgery tentatively on 08/29/2021 and will have "most of my toes cut off". 08/23: No acute events overnight. Patient seen and examined bedside. Plan for surgery with vascular surgery on August 29. Continue wound care for now. Osteomyelitis ruled out. Patient's chart, labs, images were reviewed and discussed with RN 08/22: No acute events overnight. Patient seen and examined bedside. Pending vascular surgery evaluation for possible toe amputations. Continue wound care for now. 08/21: Examined at bedside. Clinically stable. Rehab screen. Continue current plan otherwise. 08/20: Eval examined at bedside. No complaints, no distress. Rehab screen tomorrow. 08/19: Evaluated examined at bedside. Resting in bed did not appear in any distress. Continue therapy modalities 08/18: Evaluated examined at bedside. No major complaints. No distress. Screen for rehab on Saturday. 08/17: Evaluated examined at bedside. Resting in bed did not appear in any distress. Continue therapy for modalities 08/16: Patient seen and examined. He is resting with no apparent distress 08/15: Patient seen and examined. Mcclure removed yesterday, incision site looks good 08/14/2021 Patient seen and examined Discussed with RN Chart reviewed I called the vascular surgery nurse practitioner to see if they could take the janet out They said they would come later today to check on that (appreciate their help) 08/13/2019 Patient seen and examined He is up in the chair His nurse states he was able to walk to the bathroom twice His feet both still look necrotic Discussed with RN Chart reviewed 08/12/2021 Patient seen and examined Discussed with RN Chart reviewed Left foot still looks necrotic across the toes and the heel The right foot looks slightly better with slight healing of the heel but the toes are still quite necrotic 08/11/2021 Patient seen and examined Discussed with RN Chart reviewed Discussed with case management He took 8 steps yesterday 08/10/2021 Patient seen and examined exam discussed with case management Discussed with RN Chart reviewed No change clinically still wearing lower extremity protectors the toes are necrotic as are the heels 08/09: Seen sitting in chair today. He is wearing his postoperative shoes feels he is minimally stronger. Short of breath on exertion. 08/08: Seen and examined bedside. He is awaiting therapy evaluation today. Foot pain is well controlled. No worsening erythema or fevers but does have some drainage on the lateral left heel wound. No shortness of breath or chest pain. 08/04/2021 Patient seen and examined He is resting with no apparent distress Discussed with case management Chart reviewed Vascular surgery saw him again yesterday and is hoping to only have to do TMA in the future instead of BKA if we let his feett tissues try to recover for a few weeks Appreciate vascular input. 08/03/2021 Patient seen and examined Laying comfortably in bed with flat affect Bilateral heel protectors present; Dry gangrene present on bilateral toes and heels; Discussed with the wound care nurse Discussed with patient the need for vascular surgery input regarding foot surgery and potential bilateral BKA Chart reviewed Discussed with RN 08/02/2021 Patient seen and examined Discussed with RN Chart reviewed He is resting with no apparent distress 08/01/2021 Patient seen and examined He seems depressed and very weak He has heel protectors on both the toes that are exposed are extremely gangrenous and black and demarcated Discussed with the wound care nurse He explains that vascular surgery is awaiting the complete demarcation to finish up and then they will consider surgery at that time Chart reviewed Discussed with RN 07/31/2021 Patient seen and examined Discussed plan Chart reviewed Still feeling weak Mr Lambert is a 60-year-old male that presented 06/29/2021 via [facility] with decreased level of consciousness. Most of the history was obtained via EMS and patient's friend Reese [phone], who states that patient has been sick since about June 22 per Reese, he states that they both had cough cold headache sinus type pain. Per Reese's report patient is okay during the day and very alert and orientated and at night he has a decreased alertness. Patient is unable to help with exam when asked questions he does deny any past medical history, surgeries, or any other health conditions. Reese who is his roommate collaborates any information gotten from the patient. Accu-Chek per EMS was 250, room air sat in the room was 88 to 90%. 07/07: not much improved, about the same. cont current. PULM following. we have no clinimix, cont D5 fluid, 07/08: more alert, can try ST again, if able to sit up, still very weak 07/09: much more alert, bedside swallow of water ok, sits upright, much stronger, will try clears if able, ST to follow. toes are worsening, now black, hannah consult podiatry to follow, 07/10: More alert. Working with speech and swallowing today. Off O2. Less confused. Bilateral toe ulcers assessed by podiatry today. 07/11: More alert, eating. Arterial Doppler was left popliteal and severe distal disease bilaterally. Still has a little bit of a cough. Less confused today. 07/12: Eating reasonably well. Tentative plans for angiogram for consideration of limb salvage bilateral feet tomorrow. Discussed with cardiology. He will need significant follow-up care likely eventual amputations. 07/13: N.p.o. for angiogram today with bilateral SFA occlusive disease and left popliteal disease with left posterior tibial artery with some flow otherwise occlusive disease per cardiology. Discussed vascular surgery consultation for consideration of definitive revascularization with likely bilateral transmetatarsal amputations. Still with a little bit of a cough. Shortness of breath 07/14: Seen bedside. Having some pain in his bilateral extremities. Shortness of breath improved still with little bit of cough. Eating again. Amenable to revascularization and likely surgical debridement next week. Increasing thromboprophylaxis 07/15: Seen bedside. Not hypoxic. Cough is improving. He feels he is mental status is improved but he is definitely still mentating slowly. Complains of foot pain. He is contemplating surgical options but is okay with what ever the surgeons to choose for his likely lower extremity bypass tentatively planned for 07/17/202107/16: Bilateral foot pain still with cough but improving. Still is contemplating surgical options. 07/17: Patient off floor for surgery today. Chart evaluated. s/p bilateral pop/tibial thrombectomies with patch angioplasty. s/p RLE hematoma evacuation 07/18: Patient did and examined at bedside. He is postop day 1 from bilateral thrombectomies yesterday. Looks like he may need more surgery prior to dis charge. Continue heparin drip. Suspect leukocytosis today secondary to surgery. Continue current. 07/19: Patient evaluated examined at bedside. He was working with physical therapy when seen. Continuing heparin drip. Recheck CBC today. Cardiology radha lowing vascular following. Will likely need further surgery prior to discharge. 07/20: Seen at bedside. Having RLE pain and had Hgb drop overnight. Will transfuse. Stop heparin drip for now. Seen by vascular, hematoma evacuation ordered. serial Hgb. 07/21: Patient evaluated examined at bedside. Hemoglobin improved up to 8.1 today. Underwent hematoma evacuation yesterday. Planning for further intervention next week. 07/22: Examine and evaluated at bedside. Resting in bed no major complaints. Hemoglobin stable. Appreciate Cardiology resuming heparin. Further intervention next week. 07/23: Seen at bedside no motor complaints. Hemoglobin still stable. No major clinical changes for today. Intervention this coming week. 07/24: Seen bedside. Has good appetite no cough shortness of breath or chest pain. Left heel with more gangrenous changes left feet. Plan for n.p.o. after midnight 07/25: Seen bedside. N.p.o. for bilateral foot debridement today. K3. Glucose low 100s. Has a friend visiting today. No chest pain or shortness of breath. Pain controlled. 2/2: Changes in the off heparin drip to Xarelto. No significant anticoagulation for 3 months then can start progressive ambulation with physical therapy with postop shoe per vascular surgery recommendations. No shortness of breath or chest pain today just very weak. 2/3: Up to chair today, has more bilateral foot pain, now wearing post -op shoes. No SOB or cough. He is asking to get back into bed. Encouraged to continue trying to get on his feet. 24: In bed. Foot pain is improved from yesterday. No shortness of breath no cough. Still very weak even weak eating today. 25: Seen in bed. No foot pain today. No shortness of breath or cough. Still weak eating well. Not out of bed today. Glucose low 100s. 26: Seen in bed. Pain-free eating breakfast in bed. Still feeling weak has been up on his foot the last day. Glucose well controlled. Vitals/I&O Vitals/I&O: Vital Signs Date Time Temp Pulse Resp B/P (MAP) Pulse Ox O2 Delivery O2 Flow Rate FiO2 09/05/21 14:50 97.4 78 16 111/61 (78) 95 Room Air 97.4 09/05/21 10:34 3.0 I & O 09/04/21 09/04/21 09/05/21 15:00 23:00 07:00 Intake Total 480 ml 200 ml 0 ml Output Total 300 ml Balance 480 ml -100 ml 0 ml Physical Exam Physical Exam: lethargic and weak General: Alert, Oriented X3, Cooperative, No acute distress, Other (Resting) Heart: Regular rate, Other (Palpable popliteal pulses bilaterally,biphasic pt signals bilaterally.) Lungs: Clear Abdomen: Normal bowel sounds Extremities: Other (On examination of the left heel there is necrotic tissue within the deep fascia overlying the left calcaneus and the wound on the left heel probes to bone. The left toe amputation incisions are well healing.) Skin: Other (No further hematoma accumulation) Labs Labs: Laboratory Tests Test 09/04/21 19:45 09/05/21 07:26 09/05/21 10:26 09/05/21 17:22 Glucose (Fingerstick) 118 mg/dL (70-99) 113 mg/dL (70-99) 128 mg/dL (70-99) 124 mg/dL (70-99) Assessment and Plan Assessmemt and Plan Problems Medical Problems: (1) Dehydration Status: Acute (2) Mental status alteration Status: Acute (3) Pneumonia Status: Acute Comment Review of Relevant I have reviewed the following items amanda (where applicable) has been applied. Justifications for Admission Other Justification COVID-19 positive test (U07.1, COVID-19) with Acute Pneumonia (J12.89, Other viral pneumonia) (If respiratory failure or sepsis present, add as separate assessment) SIMONE COOPER MD Sep 05, 2021 17:41
[2021-09-05 19:15] VITALS: BP 125/70
[2021-09-05] MEDS: ATORVASTATIN CALCIUM 20 MG TABLET PO SCH (21:28)
[2021-09-05 23:08] VITALS: BP 97/68
[2021-09-06 02:26] VITALS: BP 113/79
[2021-09-06 07:15] VITALS: BP 126/81
[2021-09-06] MEDS: ASCORBIC ACID 500 MG TABLET PO SCH (07:54)
[2021-09-06] MEDS: ASPIRIN CHEWABLE 81 MG TABLET. PO SCH (07:54)
[2021-09-06] MEDS: THIAMINE 100 MG TABLET. PO SCH (07:54)
[2021-09-06] MEDS: oxyCODONE/APAP 5/325 1 TAB TABLET PO PRN ×3 (07:55→20:40)
[2021-09-06] MEDS: PANTOPRAZOLE 40 MG TABLET.DR. PO SCH (07:55)
[2021-09-06] MEDS: ZINC SULFATE 220 MG CAPSULE. PO SCH (07:55)
[2021-09-06] MEDS: METOPROLOL TART IMMED RELEASE 25 MG TABLET. PO SCH ×2 (07:56→20:29)
[2021-09-06] MEDS: INSULIN LISPRO 300 UNITS/3 ML VIAL. SQ SCH ×3 (07:58→17:00)
[2021-09-06] MEDS: NYSTATIN TOPICAL POWDER 15GM BOTTLE. TP SCH ×2 (09:00→20:40)
[2021-09-06 11:06] VITALS: BP 117/67
--- NOTE | 2021-09-06 11:52 | NUR ---
SW following. Discussed with RN, some discussion about bilateral leg amputations. Unsure of plans at this point. SW will continue to follow.
--- NOTE | 2021-09-06 12:07 | PDOC ---
Provider Note Date of Service: DATE: 09/06/21 TIME: 11:58 Provider Note Provider Note Vascular S: Patient seen and examined in room. Friend at bedside. Patient anxious regarding surgical option of bilateral BKAs O: Awake and alert VSS, afebrile Bilateral heels with boggy necrotic tissue in wound bed. Right heel with exposed bone. Left heel there is necrotic tissue within the deep fascia overlying the left calcaneus. Toe amputations are healing nicely bilaterally. A/P: 1. 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 2. History of COVID pneumonia. 3. 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 s/p bilateral pop/tibial thrombectomies with patch angioplasty 07/17/2021. Feet are well perfused. s/p RLE hematoma evacuation 07/20/2021 s/p Partial amputation of right first through fifth digit, left TMA, bilateral heel debridement Toe amputations are healing nicely, his heel wounds have necrotic tissue with ex posed bone. Discussed options with the patient of surgical debridement versus amputation and reiterated Dr. Davila' evaluation and recommendations. It is more likely that bilateral BKA would give him the best option for healing and rehabilitation. He would like a little more time to decide. Will follow up with him tomorrow regarding his decision. Continue local wound care as directed by WC team. Off- load heels. Xarelto would need to be held for amputations or debridements. Will hold xarelto and start lovenox now to allow for surgical intervention in near future Justicifation of Admission Dx: Justifications for Admission: Justification of Admission Dx: FAITH Merino APRN Sep 06, 2021 12:07
[2021-09-06 15:01] VITALS: BP 124/76
[2021-09-06 19:00] VITALS: BP 106/78
[2021-09-06] MEDS: ATORVASTATIN CALCIUM 20 MG TABLET PO SCH (20:28)
--- NOTE | 2021-09-06 22:42 | PDOC ---
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 s/p bilateral pop/tibial thrombectomies with patch angioplasty s/p RLE hematoma evacuation Metabolic cephalopathy Probable Covid toes IVORY Lactic acidosis Dysphagia Malnutrition Heel erythema Poor nail care Severe malnutrition History of Present Illness History of Present Illness 09/06 Patient evaluated examined at bedside. Resting in bed says pain is controlled. Trying to side still on surgical intervention involving BKA's. Hopeful for floi verónica by tomorrow. 09/05 Patient evaluated examined at bedside. Thinking about if he is agreeable to further surgical intervention. Allanrelto switched to Lovenox today in event he is. Continue current otherwise. 09/04/2021: Patient evaluated at bedside. Wound VAC to bilateral feet. Patient being rescreened for acute rehab. He has no complaints today; denies significant pain to bilateral feet. Encourage working with PT/OT. 09/03 Evaluated examined at bedside. Continue current with wound care therapy ant ibiotics. Discussed with bedside RN. 09/02 Evaluated examined at bedside. Pain controlled. Wound VAC still in place. Continue antibiotics. Therapy modalities 09/01/2021: Patient has no complaints today, reports minimal pain in his bilateral feet. Bilateral wound vacs are in place; he has been nonweightbearing and offloading his heels. He will work with physical therapy and Occupational Therapy today as much as tolerated. Discussed with RN. 08/31 Thuy and examined at bedside. POD2. Pain well controlled. PT/OT. Vascular following. 08/30/2021: Patient seen and examined at bedside. POD #1, s/p partial amputation of right first through fifth digit, left TMA, bilateral heel debridement. He is resting in bed comfortably, but does report some residual bilateral feet pain that is controlled with medication. States he has been instructed to rest his heels and has not yet worked with PT/OT. Perhaps we can get him to do some exercises that the head of the bed today. Denies fever, nausea, or vomiting. 08/29 Evaluated examined at bedside. Some lower extremity pain. Eager for surgery today. Continue current plan. will follow-up with the patient again after surgery 08/28/2021: Afebrile. Patient denies chest pain or shortness of breath. He reports some left lower extremity pain that is controlled with medications. Reportedly has plans for surgical amputation of left toes tomorrow. 08/26/2021 No acute events overnight. Patient seen examined bedside. No complaints at this time. Pain is well controlled. Patient is ready for surgery on Friday 08/25: Seen bedside. Able to get up. Pain is well controlled. No chest pain or shortness of breath. Continue therapy modalities. Discussed with RN. 08/24: Seen bedside. Has been working with therapy feels is getting stronger. He tells me he thinks he is getting surgery tentatively on 08/29/2021 and will have "most of my toes cut off". 08/23: No acute events overnight. Patient seen and examined bedside. Plan for surgery with vascular surgery on August 29. Continue wound care for now. Osteomyelitis ruled out. Patient's chart, labs, images were reviewed and discussed with RN 08/22: No acute events overnight. Patient seen and examined bedside. Pending vascular surgery evaluation for possible toe amputations. Continue wound care for now. 08/21: Examined at bedside. Clinically stable. Rehab screen. Continue current plan otherwise. 08/20: Eval examined at bedside. No complaints, no distress. Rehab screen tomorrow. 08/19: Evaluated examined at bedside. Resting in bed did not appear in any distress. Continue therapy modalities 08/18: Evaluated examined at bedside. No major complaints. No distress. Screen for rehab on Saturday. 08/17: Evaluated examined at bedside. Resting in bed did not appear in any distress. Continue therapy for modalities 08/16: Patient seen and examined. He is resting with no apparent distress 08/15: Patient seen and examined. Jesica removed yesterday, incision site looks good 08/14/2021 Patient seen and examined Discussed with RN Chart reviewed I called the vascular surgery nurse practitioner to see if they could take the jesica out They said they would come later today to check on that (appreciate their help) 08/13/2019 Patient seen and examined He is up in the chair His nurse states he was able to walk to the bathroom twice His feet both still look necrotic Discussed with RN Chart reviewed 08/12/2021 Patient seen and examined Discussed with RN Chart reviewed Left foot still looks necrotic across the toes and the heel The right foot looks slightly better with slight healing of the heel but the toes are still quite necrotic 08/11/2021 Patient seen and examined Discussed with RN Chart reviewed Discussed with case management He took 8 steps yesterday 08/10/2021 Patient seen and examined exam discussed with case management Discussed with RN Chart reviewed No change clinically still wearing lower extremity protectors the toes are necrotic as are the heels 08/09: Seen sitting in chair today. He is wearing his postoperative shoes feels he is minimally stronger. Short of breath on exertion. 08/08: Seen and examined bedside. He is awaiting therapy evaluation today. Foot pain is well controlled. No worsening erythema or fevers but does have some drainage on the lateral left heel wound. No shortness of breath or chest pain. 08/04/2021 Patient seen and examined He is resting with no apparent distress Discussed with case management Chart reviewed Vascular surgery saw him again yesterday and is hoping to only have to do TMA in the future instead of BKA if we let his feett tissues try to recover for a few weeks Appreciate vascular input. 08/03/2021 Patient seen and examined Laying comfortably in bed with flat affect Bilateral heel protectors present; Dry gangrene present on bilateral toes and heels; Discussed with the wound care nurse Discussed with patient the need for vascular surgery input regarding foot surgery and potential bilateral BKA Chart reviewed Discussed with RN 08/02/2021 Patient seen and examined Discussed with RN Chart reviewed He is resting with no apparent distress 08/01/2021 Patient seen and examined He seems depressed and very weak He has heel protectors on both the toes that are exposed are extremely gangrenous and black and demarcated Discussed with the wound care nurse He explains that vascular surgery is awaiting the complete demarcation to finish up and then they will consider surgery at that time Chart reviewed Discussed with RN 07/31/2021 Patient seen and examined Discussed plan Chart reviewed Still feeling weak Mr Lambert is a 60-year-old male that presented 06/29/2021 via [facility] with decreased level of consciousness. Most of the history was obtained via EMS and patient's friend Reese [phone], who states that patient has been sick since about June 22 per Reese, he states that they both had cough cold headache sinus type pain. Per Reese's report patient is okay during the day and very alert and orientated and at night he has a decreased alertness. Patient is unable to help with exam when asked questions he does deny any past medical history, surgeries, or any other health conditions. Don who is his roommate collaborates any information gotten from the patient. Accu-Chek per EMS was 250, room air sat in the room was 88 to 90%. 07/07: not much improved, about the same. cont current. PULM following. we have no clinimix, cont D5 fluid, 07/08: more alert, can try ST again, if able to sit up, still very weak 07/09: much more alert, bedside swallow of water ok, sits upright, much stronger, will try clears if able, ST to follow. toes are worsening, now black, hannah consult podiatry to follow, 07/10: More alert. Working with speech and swallowing today. Off O2. Less confused. Bilateral toe ulcers assessed by podiatry today. 07/11: More alert, eating. Arterial Doppler was left popliteal and severe distal disease bilaterally. Still has a little bit of a cough. Less confused today. 07/12: Eating reasonably well. Tentative plans for angiogram for consideration of limb salvage bilateral feet tomorrow. Discussed with cardiology. He will need significant follow-up care likely eventual amputations. 07/13: N.p.o. for angiogram today with bilateral SFA occlusive disease and left popliteal disease with left posterior tibial artery with some flow otherwise occlusive disease per cardiology. Discussed vascular surgery consultation for consideration of definitive revascularization with likely bilateral transmetatarsal amputations. Still with a little bit of a cough. Shortness of breath 07/14: Seen bedside. Having some pain in his bilateral extremities. Shortness of breath improved still with little bit of cough. Eating again. Amenable to r evascularization and likely surgical debridement next week. Increasing thromboprophylaxis 07/15: Seen bedside. Not hypoxic. Cough is improving. He feels he is mental status is improved but he is definitely still mentating slowly. Complains of foot pain. He is contemplating surgical options but is okay with what ever the surgeons to choose for his likely lower extremity bypass tentatively planned for 07/17/202107/16: Bilateral foot pain still with cough but improving. Still is contemplating surgical options. 07/17: Patient off floor for surgery today. Chart evaluated. s/p bilateral pop/tibial thrombectomies with patch angioplasty. s/p RLE hematoma evacuation 07/18: Patient did and examined at bedside. He is postop day 1 from bilateral thrombectomies yesterday. Looks like he may need more surgery prior to discharge. Continue heparin drip. Suspect leukocytosis today secondary to surgery. Continue current. 07/19: Patient evaluated examined at bedside. He was working with physical therapy when seen. Continuing heparin drip. Recheck CBC today. Cardiology following vascular following. Will likely need further surgery prior to d ischarge. 07/20: Seen at bedside. Having RLE pain and had Hgb drop overnight. Will transfuse. Stop heparin drip for now. Seen by vascular, hematoma evacuation ordered. serial Hgb. 07/21: Patient evaluated examined at bedside. Hemoglobin improved up to 8.1 today. Underwent hematoma evacuation yesterday. Planning for further intervention next week. 07/22: Examine and evaluated at bedside. Resting in bed no major complaints. Hemoglobin stable. Appreciate Cardiology resuming heparin. Further interven tion next week. 07/23: Seen at bedside no motor complaints. Hemoglobin still stable. No major clinical changes for today. Intervention this coming week. 07/24: Seen bedside. Has good appetite no cough shortness of breath or chest pain. Left heel with more gangrenous changes left feet. Plan for n.p.o. after midnight 07/25: Seen bedside. N.p.o. for bilateral foot debridement today. K3. Glucose low 100s. Has a friend visiting today. No chest pain or shortness of breath. Pain controlled. 2/2: Changes in the off heparin drip to Xarelto. No significant anticoagulation for 3 months then can start progressive ambulation with physical therapy with postop shoe per vascular surgery recommendations. No shortness of breath or chest pain today just very weak. 2/3: Up to chair today, has more bilateral foot pain, now wearing post -op shoes. No SOB or cough. He is asking to get back into bed. Encouraged to continue trying to get on his feet. 2: In bed. Foot pain is improved from yesterday. No shortness of breath no cough. Still very weak even weak eating today. 07/29: Seen in bed. No foot pain today. No shortness of breath or cough. Still weak eating well. Not out of bed today. Glucose low 100s. 07/30: Seen in bed. Pain-free eating breakfast in bed. Still feeling weak has been up on his foot the last day. Glucose well controlled. Vitals/I&O Vitals/I&O: Vital Signs Date Time Temp Pulse Resp B/P (MAP) Pulse Ox O2 Delivery O2 Flow Rate FiO2 09/06/21 20:40 Room Air 09/06/21 20:29 106/78 09/06/21 19:00 98.3 93 13 95 98.3 09/05/21 10:34 3.0 I & O 09/05/21 09/05/21 09/06/21 15:00 23:00 07:00 Intake Total 120 ml 120 ml 360 ml Output Total 300 ml 300 ml Balance -180 ml -180 ml 360 ml Physical Exam Physical Exam: lethargic and weak General: Alert, Oriented X3, Cooperative, No acute distress, Other (Resting) Heart: Regular rate, Other (Palpable popliteal pulses bilaterally,biphasic pt signals bilaterally.) Lungs: Clear Abdomen: Normal bowel sounds Extremities: Other (On examination of the left heel there is necrotic tissue within the deep fascia overlying the left calcaneus and the wound on the left heel probes to bone. The left toe amputation incisions are well healing.) Skin: Other (No further hematoma accumulation) Labs Labs: Laboratory Tests Test 09/06/21 07:26 09/06/21 11:43 09/06/21 17:06 09/06/21 20:51 Glucose (Fingerstick) 116 mg/dL (70-99) 134 mg/dL (70-99) 123 mg/dL (70-99) 127 mg/dL (70-99) Assessment and Plan Assessmemt and Plan Problems Medical Problems: (1) Dehydration Status: Acute (2) Mental status alteration Status: Acute (3) Pneumonia Status: Acute Comment Review of Relevant I have reviewed the following items amanda (where applicable) has been applied. Justifications for Admission Other Justification COVID-19 positive test (U07.1, COVID-19) with Acute Pneumonia (J12.89, Other viral pneumonia) (If respiratory failure or sepsis present, add as separate assessment) SIMONE COOPER MD Sep 06, 2021 22:42
[2021-09-06 23:00] VITALS: BP 110/72
[2021-09-07 03:00] VITALS: BP 102/64
[2021-09-07 07:00] VITALS: BP 122/80
[2021-09-07] MEDS: INSULIN LISPRO 300 UNITS/3 ML VIAL. SQ SCH ×3 (08:00→16:40)
[2021-09-07] MEDS: ZINC SULFATE 220 MG CAPSULE. PO SCH (08:48)
[2021-09-07] MEDS: THIAMINE 100 MG TABLET. PO SCH (08:48)
[2021-09-07] MEDS: METOPROLOL TART IMMED RELEASE 25 MG TABLET. PO SCH ×2 (08:49→21:15)
[2021-09-07] MEDS: PANTOPRAZOLE 40 MG TABLET.DR. PO SCH (08:49)
[2021-09-07] MEDS: ASPIRIN CHEWABLE 81 MG TABLET. PO SCH (08:49)
[2021-09-07] MEDS: oxyCODONE/APAP 5/325 1 TAB TABLET PO PRN ×2 (08:49→21:17)
[2021-09-07] MEDS: ASCORBIC ACID 500 MG TABLET PO SCH (08:49)
[2021-09-07] MEDS: NYSTATIN TOPICAL POWDER 15GM BOTTLE. TP SCH ×2 (08:50→21:00)
--- NOTE | 2021-09-07 10:34 | PDOC ---
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 s/p bilateral pop/tibial thrombectomies with patch angioplasty s/p RLE hematoma evacuation Metabolic cephalopathy Probable Covid toes IVORY Lactic acidosis Dysphagia Malnutrition Heel erythema Poor nail care Severe malnutrition History of Present Illness History of Present Illness 09/07 Patient evaluate examined at bedside. Resting in bed doing well. No major complaints. Said he is leaning toward surgical intervention but still thinking. 09/06 Patient evaluated examined at bedside. Resting in bed says pain is controlled. Trying to side still on surgical intervention involving BKA's. Hopeful for decision by tomorrow. 09/05 Patient evaluated examined at bedside. Thinking about if he is agreeable to further surgical intervention. Xarelto switched to Lovenox today in event he is. Continue current otherwise. 09/04/2021: Patient evaluated at bedside. Wound VAC to bilateral feet. Patient being rescreened for acute rehab. He has no complaints today; denies significant pain to bilateral feet. Encourage working with PT/OT. 09/03 Evaluated examined at bedside. Continue current with wound care therapy antibiotics. Discussed with bedside RN. 09/02 Evaluated examined at bedside. Pain controlled. Wound VAC still in place. Continue antibiotics. Therapy modalities 09/01/2021: Patient has no complaints today, reports minimal pain in his bilateral feet. Bilateral wound vacs are in place; he has been nonweightbearing and offloading his heels. He will work with physical therapy and Occupational Therapy today as much as tolerated. Discussed with RN. 08/31 Thuy and examined at bedside. POD2. Pain well controlled. PT/OT. Vascular following. 08/30/2021: Patient seen and examined at bedside. POD #1, s/p partial amputation of right first through fifth digit, left TMA, bilateral heel debridement. He is resting in bed comfortably, but does report some residual bilateral feet pain that is controlled with medication. States he has been instructed to rest his heels and has not yet worked with PT/OT. Perhaps we can get him to do some exercises that the head of the bed today. Denies fever, nausea, or vomiting. 08/29 Evaluated examined at bedside. Some lower extremity pain. Eager for surgery today. Continue current plan. will follow-up with the patient again after surgery 08/28/2021: Afebrile. Patient denies chest pain or shortness of breath. He reports some left lower extremity pain that is controlled with medications. Reportedly has plans for surgical amputation of left toes tomorrow. 08/26/2021 No acute events overnight. Patient seen examined bedside. No complaints at this time. Pain is well controlled. Patient is ready for surgery on Friday 08/25: Seen bedside. Able to get up. Pain is well controlled. No chest pain or shortness of breath. Continue therapy modalities. Discussed with RN. 08/24: Seen bedside. Has been working with therapy feels is getting stronger. He tells me he thinks he is getting surgery tentatively on 08/29/2021 and will have "most of my toes cut off". 08/23: No acute events overnight. Patient seen and examined bedside. Plan for surgery with vascular surgery on August 29. Continue wound care for now. Osteomyelitis ruled out. Patient's chart, labs, images were reviewed and dis cussed with RN 08/22: No acute events overnight. Patient seen and examined bedside. Pending vascular surgery evaluation for possible toe amputations. Continue wound care for now. 08/21: Examined at bedside. Clinically stable. Rehab screen. Continue current plan otherwise. 08/20: Eval examined at bedside. No complaints, no distress. Rehab screen tomorrow. 08/19: Evaluated examined at bedside. Resting in bed did not appear in any distress. Continue therapy modalities 08/18: Evaluated examined at bedside. No major complaints. No distress. Screen for rehab on Saturday. 08/17: Evaluated examined at bedside. Resting in bed did not appear in any distress. Continue therapy for modalities 08/16: Patient seen and examined. He is resting with no apparent distress 08/15: Patient seen and examined. Alpine removed yesterday, incision site looks good 08/14/2021 Patient seen and examined Discussed with RN Chart reviewed I called the vascular surgery nurse practitioner to see if they could take the janet out They said they would come later today to check on that (appreciate their help) 08/13/2019 Patient seen and examined He is up in the chair His nurse states he was able to walk to the bathroom twice His feet both still look necrotic Discussed with RN Chart reviewed 08/12/2021 Patient seen and examined Discussed with RN Chart reviewed Left foot still looks necrotic across the toes and the heel The right foot looks slightly better with slight healing of the heel but the toes are still quite necrotic 08/11/2021 Patient seen and examined Discussed with RN Chart reviewed Discussed with case management He took 8 steps yesterday 08/10/2021 Patient seen and examined exam discussed with case management Discussed with RN Chart reviewed No change clinically still wearing lower extremity protectors the toes are necrotic as are the heels 08/09: Seen sitting in chair today. He is wearing his postoperative shoes feels he is minimally stronger. Short of breath on exertion. 08/08: Seen and examined bedside. He is awaiting therapy evaluation today. Foot pain is well controlled. No worsening erythema or fevers but does have some drainage on the lateral left heel wound. No shortness of breath or chest pain. 08/04/2021 Patient seen and examined He is resting with no apparent distress Discussed with case management Chart reviewed Vascular surgery saw him again yesterday and is hoping to only have to do TMA in the future instead of BKA if we let his feett tissues try to recover for a few weeks Appreciate vascular input. 08/03/2021 Patient seen and examined Laying comfortably in bed with flat affect Bilateral heel protectors present; Dry gangrene present on bilateral toes and heels; Discussed with the wound care nurse Discussed with patient the need for vascular surgery input regarding foot surgery and potential bilateral BKA Chart reviewed Discussed with RN 08/02/2021 Patient seen and examined Discussed with RN Chart reviewed He is resting with no apparent distress 08/01/2021 Patient seen and examined He seems depressed and very weak He has heel protectors on both the toes that are exposed are extremely gangrenous and black and demarcated Discussed with the wound care nurse He explains that vascular surgery is awaiting the complete demarcation to finish up and then they will consider surgery at that time Chart reviewed Discussed with RN 07/31/2021 Patient seen and examined Discussed plan Chart reviewed Still feeling weak Mr Lambert is a 60-year-old male that presented 06/29/2021 via [facility] with decreased level of consciousness. Most of the history was obtained via EMS and patient's friend Reese [phone], who states that patient has been sick since about June 22 per Reese, he states that they both had cough cold headache sinus type pain. Per Reese's report patient is okay during the day and very alert and orientated and at night he has a decreased alertness. Patient is unable to help with exam when asked questions he does deny any past medical history, surgeries, or any other health conditions. Reese who is his roommate collaborates any information gotten from the patient. Accu-Chek per EMS was 250, room air sat in the room was 88 to 90%. 07/07: not much improved, about the same. cont current. PULM following. we have no clinimix, cont D5 fluid, 07/08: more alert, can try ST again, if able to sit up, still very weak 07/09: much more alert, bedside swallow of water ok, sits upright, much stronger, will try clears if able, ST to follow. toes are worsening, now black, hannah consult podiatry to follow, 07/10: More alert. Working with speech and swallowing today. Off O2. Less confused. Bilateral toe ulcers assessed by podiatry today. 07/11: More alert, eating. Arterial Doppler was left popliteal and severe distal disease bilaterally. Still has a little bit of a cough. Less confused today. 07/12: Eating reasonably well. Tentative plans for angiogram for consideration of limb salvage bilateral feet tomorrow. Discussed with cardiology. He will need significant follow-up care likely eventual amputations. 07/13: N.p.o. for angiogram today with bilateral SFA occlusive disease and left popliteal disease with left posterior tibial artery with some flow otherwise occlusive disease per cardiology. Discussed vascular surgery consultation for consideration of definitive revascularization with likely bilateral transmetatarsal amputations. Still with a little bit of a cough. Shortness of breath 07/14: Seen bedside. Having some pain in his bilateral extremities. Shortness of breath improved still with little bit of cough. Eating again. Amenable to revascularization and likely surgical debridement next week. Increasing thromboprophylaxis 07/15: Seen bedside. Not hypoxic. Cough is improving. He feels he is mental status is improved but he is definitely still mentating slowly. Complains of foot pain. He is contemplating surgical options but is okay with what ever the surgeons to choose for his likely lower extremity bypass tentatively planned for 07/17/202107/16: Bilateral foot pain still with cough but improving. Still is contemplating surgical options. 07/17: Patient off floor for surgery today. Chart evaluated. s/p bilateral pop/tibial thrombectomies with patch angioplasty. s/p RLE hematoma evacuation 07/18: Patient did and examined at bedside. He is postop day 1 from bilateral thrombectomies yesterday. Looks like he may need more surgery prior to discharge. Continue heparin drip. Suspect leukocytosis today secondary to surgery. Continue current. 07/19: Patient evaluated examined at bedside. He was working with physical therapy when seen. Continuing heparin drip. Recheck CBC today. Cardiology following vascular following. Will likely need further surgery prior to discharge. 07/20: Seen at bedside. Having RLE pain and had Hgb drop overnight. Will transfuse. Stop heparin drip for now. Seen by vascular, hematoma evacuation ordered. serial Hgb. 07/21: Patient evaluated examined at bedside. Hemoglobin improved up to 8.1 today. Underwent hematoma evacuation yesterday. Planning for further intervention next week. 07/22: Examine and evaluated at bedside. Resting in bed no major complaints. Hemoglobin stable. Appreciate Cardiology resuming heparin. Further intervention next week. 07/23: Seen at bedside no motor complaints. Hemoglobin still stable. No major clinical changes for today. Intervention this coming week. 07/24: Seen bedside. Has good appetite no cough shortness of breath or chest pain. Left heel with more gangrenous changes left feet. Plan for n.p.o. after midnight 07/25: Seen bedside. N.p.o. for bilateral foot debridement today. K3. Glucose low 100s. Has a friend visiting today. No chest pain or shortness of breath. Pain controlled. 2/2: Changes in the off heparin drip to Xarelto. No significant anticoagulation for 3 months then can start progressive ambulation with physical therapy with postop shoe per vascular surgery recommendations. No shortness of breath or chest pain today just very weak. 2/3: Up to chair today, has more bilateral foot pain, now wearing post -op shoes. No SOB or cough. He is asking to get back into bed. Encouraged to continue trying to get on his feet. 2/4: In bed. Foot pain is improved from yesterday. No shortness of breath no cough. Still very weak even weak eating today. 25: Seen in bed. No foot pain today. No shortness of breath or cough. Still weak eating well. Not out of bed today. Glucose low 100s. 2: Seen in bed. Pain-free eating breakfast in bed. Still feeling weak has been up on his foot the last day. Glucose well controlled. Vitals/I&O Vitals/I&O: Vital Signs Date Time Temp Pulse Resp B/P (MAP) Pulse Ox O2 Delivery O2 Flow Rate FiO2 09/07/21 09:13 94 Room Air 09/07/21 08:49 88 122/80 09/07/21 07:00 98.0 18 98.0 09/06/21 20:00 3.0 I & O 09/06/21 09/06/21 09/07/21 15:00 23:00 07:00 Intake Total 520 ml 240 ml Output Total 200 ml 400 ml Balance 320 ml 240 ml -400 ml Physical Exam Physical Exam: lethargic and weak General: Alert, Oriented X3, Cooperative, No acute distress, Other (Resting) Heart: Regular rate, Other (Palpable popliteal pulses bilaterally,biphasic pt signals bilaterally.) Lungs: Clear Abdomen: Normal bowel sounds Extremities: Other (On examination of the left heel there is necrotic tissue within the deep fascia overlying the left calcaneus and the wound on the left heel probes to bone. The left toe amputation incisions are well healing.) Skin: Other (No further hematoma accumulation) Labs Labs: Laboratory Tests Test 09/06/21 11:43 09/06/21 17:06 09/06/21 20:51 09/07/21 07:36 Glucose (Fingerstick) 134 mg/dL (70-99) 123 mg/dL (70-99) 127 mg/dL (70-99) 116 mg/dL (70-99) Assessment and Plan Assessmemt and Plan Problems Medical Problems: (1) Dehydration Status: Acute (2) Mental status alteration Status: Acute (3) Pneumonia Status: Acute Comment Review of Relevant I have reviewed the following items amanda (where applicable) has been applied. Justifications for Admission Other Justification COVID-19 positive test (U07.1, COVID-19) with Acute Pneumonia (J12.89, Other viral pneumonia) (If respiratory failure or sepsis present, add as separate assessment) SIMONE COOPER MD Sep 07, 2021 10:34
[2021-09-07 10:53] VITALS: BP 115/69
[2021-09-07 15:00] VITALS: BP 117/75
--- NOTE | 2021-09-07 15:38 | PDOC ---
Provider Note Date of Service: DATE: 09/07/21 TIME: 15:36 Provider Note Provider Note Vascular S: Patient seen and examined in room. Friend at bedside. Dr. Lindsey present for examination. Patient anxious regarding surgical option of bilateral BKAs O: Awake and alert VSS, afebrile Bilateral foot dressings dry and intact A/P: 1. 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 2. History of COVID pneumonia. 3. 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 s/p bilateral pop/tibial thrombectomies with patch angioplasty 07/17/2021. Feet are well perfused. s/p RLE hematoma evacuation 07/20/2021 s/p Partial amputation of right first through fifth digit, left TMA, bilateral heel debridement Toe amputations are healing nicely, his heel wounds have necrotic tissue with exposed bone. Discussed options with the patient of surgical debridement versus amputation. It is more likely that bilateral BKA would give him the best option for healing and rehabilitation. He continues to be uncertain of his decision. Will follow up with him tomorrow regarding his decision. Continue local wound care as directed by WC team. Off-load heels. Xarelto would need to be held for amputations or debridements. Will hold xarelto and start lovenox now to allow for surgical intervention in near future Justicifation of Admission Dx: Justifications for Admission: Justification of Admission Dx: FAITH Merino APRN Sep 07, 2021 15:38
[2021-09-07 19:00] VITALS: BP 129/74
[2021-09-07] MEDS: ATORVASTATIN CALCIUM 20 MG TABLET PO SCH (21:15)
[2021-09-07 23:00] VITALS: BP 115/67
[2021-09-08 03:00] VITALS: BP 145/79
[2021-09-08 07:00] VITALS: BP 146/83
[2021-09-08] MEDS: INSULIN LISPRO 300 UNITS/3 ML VIAL. SQ SCH ×3 (08:00→17:00)
[2021-09-08] MEDS: PANTOPRAZOLE 40 MG TABLET.DR. PO SCH (08:57)
[2021-09-08] MEDS: ASPIRIN CHEWABLE 81 MG TABLET. PO SCH (08:58)
[2021-09-08] MEDS: ZINC SULFATE 220 MG CAPSULE. PO SCH (08:58)
[2021-09-08] MEDS: THIAMINE 100 MG TABLET. PO SCH (08:58)
[2021-09-08] MEDS: METOPROLOL TART IMMED RELEASE 25 MG TABLET. PO SCH ×2 (09:01→20:11)
[2021-09-08] MEDS: NYSTATIN TOPICAL POWDER 15GM BOTTLE. TP SCH ×2 (09:02→20:15)
[2021-09-08] MEDS: ASCORBIC ACID 500 MG TABLET PO SCH (09:05)
--- NOTE | 2021-09-08 10:03 | NUR ---
SW following. Discussed with RN, pt stating he might not decide until next week about bilateral amputations. MYLENE met with pt to explain lack of options whether pt gets the amputation or not. Pt essentially has been told (as well as by wound care) that he will be discharging on Saturday if he hasn't made a decision, and can decide at home. When MYLENE was explaining options etc pt only appeared to be concerned about how he would get pain meds when he is at home. Pt stating he has no money - MYLENE explained pain medications are typically cheaper than other medications and pulled up an example of 90 tablets of hydrocodone being around $20. SW explained whether pt does the amputations or not, he will still be going home and will still be in the same situation with the pain medications. Naresh Hebert ( director) notified. MYLENE will continue to follow.
[2021-09-08 10:55] VITALS: BP 107/74
--- NOTE | 2021-09-08 12:39 | PDOC ---
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 s/p bilateral pop/tibial thrombectomies with patch angioplasty s/p RLE hematoma evacuation Metabolic cephalopathy Probable Covid toes IVORY Lactic acidosis Dysphagia Malnutrition Heel erythema Poor nail care Severe malnutrition History of Present Illness History of Present Illness 09/08 Evaluated examined at bedside. In bed saying he still has not decided on surgical intervention. Seem to be more fixated on pain meds this morning. Social work note reviewed and agree with the plan if no decision by Saturday then discharging. 09/07 Patient evaluate examined at bedside. Resting in bed doing well. No major complaints. Said he is leaning toward surgical intervention but still thinking. 09/06 Patient evaluated examined at bedside. Resting in bed says pain is controlled. Trying to side still on surgical intervention involving BKA's. Hopeful for decision by tomorrow. 09/05 Patient evaluated examined at bedside. Thinking about if he is agreeable to further surgical intervention. Xarelto switched to Lovenox today in event he is. Continue current otherwise. 09/04/2021: Patient evaluated at bedside. Wound VAC to bilateral feet. Patient being rescreened for acute rehab. He has no complaints today; denies significant pain to bilateral feet. Encourage working with PT/OT. 09/03 Evaluated examined at bedside. Continue current with wound care therapy antibiotics. Discussed with bedside RN. 09/02 Evaluated examined at bedside. Pain controlled. Wound VAC still in place. Continue antibiotics. Therapy modalities 09/01/2021: Patient has no complaints today, reports minimal pain in his bilateral feet. Bilateral wound vacs are in place; he has been nonweightbearing and offloading his heels. He will work with physical therapy and Occupational Therapy today as much as tolerated. Discussed with RN. 08/31 Eval and examined at bedside. POD2. Pain well controlled. PT/OT. Vascular following. 08/30/2021: Patient seen and examined at bedside. POD #1, s/p partial amputation of right first through fifth digit, left TMA, bilateral heel debridement. He is resting in bed comfortably, but does report some residual bilateral feet pain that is controlled with medication. States he has been instructed to rest his heels and has not yet worked with PT/OT. Perhaps we can get him to do some exercises that the head of the bed today. Denies fever, nausea, or vomiting. 08/29 Evaluated examined at bedside. Some lower extremity pain. Eager for surgery today. Continue current plan. will follow-up with the patient again after surgery 08/28/2021: Afebrile. Patient denies chest pain or shortness of breath. He reports some left lower extremity pain that is controlled with medications. Reportedly has plans for surgical amputation of left toes tomorrow. 08/26/2021 No acute events overnight. Patient seen examined bedside. No complaints at this time. Pain is well controlled. Patient is ready for surgery on Friday 08/25: Seen bedside. Able to get up. Pain is well controlled. No chest pain or shortness of breath. Continue therapy modalities. Discussed with RN. 08/24: Seen bedside. Has been working with therapy feels is getting stronger. He tells me he thinks he is getting surgery tentatively on 08/29/2021 and will have "most of my toes cut off". 08/23: No acute events overnight. Patient seen and examined bedside. Plan for surgery with vascular surgery on August 29. Continue wound care for now. Osteomyelitis ruled out. Patient's chart, labs, images were reviewed and discussed with RN 08/22: No acute events overnight. Patient seen and examined bedside. Pending vascular surgery evaluation for possible toe amputations. Continue wound care for now. 08/21: Examined at bedside. Clinically stable. Rehab screen. Continue current plan otherwise. 08/20: Eval examined at bedside. No complaints, no distress. Rehab screen tomorrow. 08/19: Evaluated examined at bedside. Resting in bed did not appear in any distress. Continue therapy modalities 08/18: Evaluated examined at bedside. No major complaints. No distress. Screen for rehab on Saturday. 08/17: Evaluated examined at bedside. Resting in bed did not appear in any distress. Continue therapy for modalities 08/16: Patient seen and examined. He is resting with no apparent distress 08/15: Patient seen and examined. Jesica removed yesterday, incision site looks good 08/14/2021 Patient seen and examined Discussed with RN Chart reviewed I called the vascular surgery nurse practitioner to see if they could take the jesica out They said they would come later today to check on that (appreciate their help) 08/13/2019 Patient seen and examined He is up in the chair His nurse states he was able to walk to the bathroom twice His feet both still look necrotic Discussed with RN Chart reviewed 08/12/2021 Patient seen and examined Discussed with RN Chart reviewed Left foot still looks necrotic across the toes and the heel The right foot looks slightly better with slight healing of the heel but the toes are still quite necrotic 08/11/2021 Patient seen and examined Discussed with RN Chart reviewed Discussed with case management He took 8 steps yesterday 08/10/2021 Patient seen and examined exam discussed with case management Discussed with RN Chart reviewed No change clinically still wearing lower extremity protectors the toes are necrotic as are the heels 08/09: Seen sitting in chair today. He is wearing his postoperative shoes feels he is minimally stronger. Short of breath on exertion. 08/08: Seen and examined bedside. He is awaiting therapy evaluation today. Foot pain is well controlled. No worsening erythema or fevers but does have some drainage on the lateral left heel wound. No shortness of breath or chest pain. 08/04/2021 Patient seen and examined He is resting with no apparent distress Discussed with case management Chart reviewed Vascular surgery saw him again yesterday and is hoping to only have to do TMA in the future instead of BKA if we let his feett tissues try to recover for a few weeks Appreciate vascular input. 08/03/2021 Patient seen and examined Laying comfortably in bed with flat affect Bilateral heel protectors present; Dry gangrene present on bilateral toes and heels; Discussed with the wound care nurse Discussed with patient the need for vascular surgery input regarding foot surgery and potential bilateral BKA Chart reviewed Discussed with RN 08/02/2021 Patient seen and examined Discussed with RN Chart reviewed He is resting with no apparent distress 08/01/2021 Patient seen and examined He seems depressed and very weak He has heel protectors on both the toes that are exposed are extremely gangrenous and black and demarcated Discussed with the wound care nurse He explains that vascular surgery is awaiting the complete demarcation to finish up and then they will consider surgery at that time Chart reviewed Discussed with RN 07/31/2021 Patient seen and examined Discussed plan Chart reviewed Still feeling weak Mr Lambert is a 60-year-old male that presented 06/29/2021 via [facility] with decreased level of consciousness. Most of the history was obtained via EMS and patient's friend Reese [phone], who states that patient has been sick since about June 22 per Reese, he states that they both had cough cold headache sinus type pain. Per Reese's report patient is okay during the day and very alert and orientated and at night he has a decreased alertness. Patient is unable to help with exam when asked questions he does deny any past medical history, surgeries, or any other health conditions. Reese who is his roommate collaborates any information gotten from the patient. Accu-Chek per EMS was 250, room air sat in the room was 88 to 90%. 07/07: not much improved, about the same. cont current. PULM following. we have no clinimix, cont D5 fluid, 07/08: more alert, can try ST again, if able to sit up, still very weak 07/09: much more alert, bedside swallow of water ok, sits upright, much stronger, will try clears if able, ST to follow. toes are worsening, now black, hannah consult podiatry to follow, 07/10: More alert. Working with speech and swallowing today. Off O2. Less confused. Bilateral toe ulcers assessed by podiatry today. 07/11: More alert, eating. Arterial Doppler was left popliteal and severe distal disease bilaterally. Still has a little bit of a cough. Less confused today. 07/12: Eating reasonably well. Tentative plans for angiogram for consideration of limb salvage bilateral feet tomorrow. Discussed with cardiology. He will need significant follow-up care likely eventual amputations. 07/13: N.p.o. for angiogram today with bilateral SFA occlusive disease and left popliteal disease with left posterior tibial artery with some flow otherwise occlusive disease per cardiology. Discussed vascular surgery consultation for consideration of definitive revascularization with likely bilateral transmetatarsal amputations. Still with a little bit of a cough. Shortness of breath 07/14: Seen bedside. Having some pain in his bilateral extremities. Shortness of breath improved still with little bit of cough. Eating again. Amenable to revascularization and likely surgical debridement next week. Increasing thromboprophylaxis 07/15: Seen bedside. Not hypoxic. Cough is improving. He feels he is mental status is improved but he is definitely still mentating slowly. Complains of foot pain. He is contemplating surgical options but is okay with what ever the surgeons to choose for his likely lower extremity bypass tentatively planned for 07/17/202107/16: Bilateral foot pain still with cough but improving. Still is contemplating surgical options. 07/17: Patient off floor for surgery today. Chart evaluated. s/p bilateral pop/tibial thrombectomies with patch angioplasty. s/p RLE hematoma evacuation 07/18: Patient did and examined at bedside. He is postop day 1 from bilateral thrombectomies yesterday. Looks like he may need more surgery prior to discharge. Continue heparin drip. Suspect leukocytosis today secondary to surgery. Continue current. 07/19: Patient evaluated examined at bedside. He was working with physical therapy when seen. Continuing heparin drip. Recheck CBC today. Cardiology following vascular following. Will likely need further surgery prior to discharge. 07/20: Seen at bedside. Having RLE pain and had Hgb drop overnight. Will transfuse. Stop heparin drip for now. Seen by vascular, hematoma evacuation ordered. serial Hgb. 07/21: Patient evaluated examined at bedside. Hemoglobin improved up to 8.1 today. Underwent hematoma evacuation yesterday. Planning for further intervention next week. 07/22: Examine and evaluated at bedside. Resting in bed no major complaints. Hemoglobin stable. Appreciate Cardiology resuming heparin. Further intervention next week. 07/23: Seen at bedside no motor complaints. Hemoglobin still stable. No major clinical changes for today. Intervention this coming week. 07/24: Seen bedside. Has good appetite no cough shortness of breath or chest pain. Left heel with more gangrenous changes left feet. Plan for n.p.o. after midnight 07/25: Seen bedside. N.p.o. for bilateral foot debridement today. K3. Glucose low 100s. Has a friend visiting today. No chest pain or shortness of breath. Pain controlled. 2/2: Changes in the off heparin drip to Xarelto. No significant anticoagulation for 3 months then can start progressive ambulation with physical therapy with postop shoe per vascular surgery recommendations. No shortness of breath or chest pain today just very weak. 2/3: Up to chair today, has more bilateral foot pain, now wearing post -op shoes. No SOB or cough. He is asking to get back into bed. Encouraged to continue trying to get on his feet. 2: In bed. Foot pain is improved from yesterday. No shortness of breath no cough. Still very weak even weak eating today. 07/29: Seen in bed. No foot pain today. No shortness of breath or cough. Still weak eating well. Not out of bed today. Glucose low 100s. 07/30: Seen in bed. Pain-free eating breakfast in bed. Still feeling weak has been up on his foot the last day. Glucose well controlled. Vitals/I&O Vitals/I&O: Vital Signs Date Time Temp Pulse Resp B/P (MAP) Pulse Ox O2 Delivery O2 Flow Rate FiO2 09/08/21 10:55 98.0 85 18 107/74 (85) 95 Room Air 98.0 I & O 09/07/21 09/07/21 09/08/21 15:00 23:00 07:00 Intake Total 480 ml 240 ml 540 ml Output Total 725 ml Balance 480 ml 240 ml -185 ml Physical Exam Physical Exam: lethargic and weak General: Alert, Oriented X3, Cooperative, No acute distress, Other (Resting) Heart: Regular rate, Other (Palpable popliteal pulses bilaterally,biphasic pt signals bilaterally.) Lungs: Clear Abdomen: Normal bowel sounds Extremities: Other (On examination of the left heel there is necrotic tissue within the deep fascia overlying the left calcaneus and the wound on the left heel probes to bone. The left toe amputation incisions are well healing.) Skin: Other (No further hematoma accumulation) Labs Labs: Laboratory Tests Test 09/07/21 16:28 09/07/21 20:41 09/08/21 07:50 09/08/21 11:43 Glucose (Fingerstick) 139 mg/dL (70-99) 139 mg/dL (70-99) 98 mg/dL (70-99) 140 mg/dL (70-99) Assessment and Plan Assessmemt and Plan Problems Medical Problems: (1) Dehydration Status: Acute (2) Mental status alteration Status: Acute (3) Pneumonia Status: Acute Comment Review of Relevant I have reviewed the following items amanda (where applicable) has been applied. Justifications for Admission Other Justification COVID-19 positive test (U07.1, COVID-19) with Acute Pneumonia (J12.89, Other viral pneumonia) (If respiratory failure or sepsis present, add as separate assessment) SIMONE COOPER MD Sep 08, 2021 12:39
--- NOTE | 2021-09-08 13:48 | NUR ---
Wound Care Wound Type/Assessment: 61 year old male, S/P bilateral foot digital amputations and bilateral heel debridements. Patient was seen by Dr. Javi García MD from Vascular Surgery earlier this week who recommended at a minimum further debridement but more likely needing staged bilateral BKA's. Will await decision on treatment options by the patient regarding surgical intervention. Dressings changed today and options discussed with holli and his friend. Treatment Recommendations/Plan: Betadine soaked gauze, ABD and kerlix applied bilaterally to heel wounds. Change daily Education provided: PU prevention, WC POC, offloading importance discussed Offloading surface/device: Heels floated bilaterally on pillows. Recommended Referrals/Tests: na Discharge Recommendations for dressings: To be decided Saturday by patient.
[2021-09-08 14:53] VITALS: BP 125/82
[2021-09-08] MEDS: oxyCODONE/APAP 5/325 1 TAB TABLET PO PRN ×3 (14:53→21:23)
[2021-09-08 20:08] VITALS: BP 130/91
[2021-09-08] MEDS: ATORVASTATIN CALCIUM 20 MG TABLET PO SCH (20:11)
[2021-09-08 23:41] VITALS: BP 118/80
[2021-09-09 03:00] VITALS: BP 112/67
[2021-09-09 07:00] VITALS: BP 127/91
[2021-09-09] MEDS: INSULIN LISPRO 300 UNITS/3 ML VIAL. SQ SCH ×3 (08:00→17:00)
[2021-09-09] MEDS: ASCORBIC ACID 500 MG TABLET PO SCH (08:19)
[2021-09-09] MEDS: THIAMINE 100 MG TABLET. PO SCH (08:19)
[2021-09-09] MEDS: PANTOPRAZOLE 40 MG TABLET.DR. PO SCH (08:19)
[2021-09-09] MEDS: ZINC SULFATE 220 MG CAPSULE. PO SCH (08:19)
[2021-09-09] MEDS: ASPIRIN CHEWABLE 81 MG TABLET. PO SCH (08:19)
[2021-09-09] MEDS: NYSTATIN TOPICAL POWDER 15GM BOTTLE. TP SCH ×2 (08:27→20:38)
[2021-09-09] MEDS: METOPROLOL TART IMMED RELEASE 25 MG TABLET. PO SCH ×2 (08:27→20:35)
[2021-09-09 15:00] VITALS: BP 111/75
[2021-09-09] MEDS: oxyCODONE/APAP 5/325 1 TAB TABLET PO PRN (15:42)
--- NOTE | 2021-09-09 16:39 | NUR ---
Patient stated he wanted to wait on daily dressing change because he had visitors.
[2021-09-09 19:30] VITALS: BP 129/84
[2021-09-09] MEDS: ATORVASTATIN CALCIUM 20 MG TABLET PO SCH (20:35)
[2021-09-09 23:30] VITALS: BP 116/71
[2021-09-10] MEDS: oxyCODONE/APAP 5/325 1 TAB TABLET PO PRN ×2 (00:30→17:59)
[2021-09-10] MEDS: PANTOPRAZOLE 40 MG TABLET.DR. PO SCH (06:57)
[2021-09-10 07:00] VITALS: BP 116/75
[2021-09-10] MEDS: INSULIN LISPRO 300 UNITS/3 ML VIAL. SQ SCH ×3 (08:00→17:00)
[2021-09-10] MEDS: ZINC SULFATE 220 MG CAPSULE. PO SCH (09:02)
[2021-09-10] MEDS: THIAMINE 100 MG TABLET. PO SCH (09:02)
[2021-09-10] MEDS: METOPROLOL TART IMMED RELEASE 25 MG TABLET. PO SCH ×2 (09:02→22:16)
[2021-09-10] MEDS: ASCORBIC ACID 500 MG TABLET PO SCH (09:02)
[2021-09-10] MEDS: ASPIRIN CHEWABLE 81 MG TABLET. PO SCH (09:02)
[2021-09-10] MEDS: NYSTATIN TOPICAL POWDER 15GM BOTTLE. TP SCH ×2 (09:03→22:16)
[2021-09-10 11:00] VITALS: BP 119/80
[2021-09-10 15:00] VITALS: BP 143/69
--- NOTE | 2021-09-10 18:08 | PDOC ---
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 s/p bilateral pop/tibial thrombectomies with patch angioplasty s/p RLE hematoma evacuation Metabolic cephalopathy Probable Covid toes IVORY Lactic acidosis Dysphagia Malnutrition Heel erythema Poor nail care Severe malnutrition History of Present Illness History of Present Illness 09/10 Evaluate examined at bedside. He was asleep. Bed. Really no clinical changes. Still thinking about if he wants amputations. If no decision by tomorrow he wi ll have to leave the hospital. 09/09 patient evaluated examined at bedside. Resting in bed mother at bedside. Patient said he had no complaints. Mother had multiple questions at bedside about why he needs another surgery. I explained to the best my ability for her and she was still seemed unsatisfied. Either way still no decision on amputations. Again if no decision by Saturday he will have to discharge. 09/08 Evaluated examined at bedside. In bed saying he still has not decided on surgical intervention. Seem to be more fixated on pain meds this morning. Social work note reviewed and agree with the plan if no decision by Saturday then discharging. 09/07 Patient evaluate examined at bedside. Resting in bed doing well. No major complaints. Said he is leaning toward surgical intervention but still thinking. 09/06 Patient evaluated examined at bedside. Resting in bed says pain is controlled. Trying to side still on surgical intervention involving BKA's. Hopeful for decision by tomorrow. 09/05 Patient evaluated examined at bedside. Thinking about if he is agreeable to further surgical intervention. Allanrelto switched to Lovenox today in event he is. Continue current otherwise. 09/04/2021: Patient evaluated at bedside. Wound VAC to bilateral feet. Patient being rescreened for acute rehab. He has no complaints today; denies significant pain to bilateral feet. Encourage working with PT/OT. 09/03 Evaluated examined at bedside. Continue current with wound care therapy antibiotics. Discussed with bedside RN. 09/02 Evaluated examined at bedside. Pain controlled. Wound VAC still in place. Continue antibiotics. Therapy modalities 09/01/2021: Patient has no complaints today, reports minimal pain in his bilateral feet. Bilateral wound vacs are in place; he has been nonweightbearing and offloading his heels. He will work with physical therapy and Occupational Therapy today as much as tolerated. Discussed with RN. 08/31 Eval and examined at bedside. POD2. Pain well controlled. PT/OT. Vascular following. 08/30/2021: Patient seen and examined at bedside. POD #1, s/p partial amputation of right first through fifth digit, left TMA, bilateral heel debridement. He is resting in bed comfortably, but does report some residual bilateral feet pain that is controlled with medication. States he has been instructed to rest his heels and has not yet worked with PT/OT. Perhaps we can get him to do some exercises that the head of the bed today. Denies fever, nausea, or vomiting. 08/29 Evaluated examined at bedside. Some lower extremity pain. Eager for surgery today. Continue current plan. will follow-up with the patient again after surg danya 08/28/2021: Afebrile. Patient denies chest pain or shortness of breath. He reports some left lower extremity pain that is controlled with medications. Reportedly has plans for surgical amputation of left toes tomorrow. 08/26/2021 No acute events overnight. Patient seen examined bedside. No complaints at this time. Pain is well controlled. Patient is ready for surgery on Friday 08/25: Seen bedside. Able to get up. Pain is well controlled. No chest pain or shortness of breath. Continue therapy modalities. Discussed with RN. 08/24: Seen bedside. Has been working with therapy feels is getting stronger. He tells me he thinks he is getting surgery tentatively on 08/29/2021 and will have "most of my toes cut off". 08/23: No acute events overnight. Patient seen and examined bedside. Plan for surgery with vascular surgery on August 29. Continue wound care for now. Osteomyelitis ruled out. Patient's chart, labs, images were reviewed and discussed with RN 08/22: No acute events overnight. Patient seen and examined bedside. Pending vascular surgery evaluation for possible toe amputations. Continue wound care for now. 08/21: Examined at bedside. Clinically stable. Rehab screen. Continue current plan otherwise. 08/20: Eval examined at bedside. No complaints, no distress. Rehab screen tomorrow. 08/19: Evaluated examined at bedside. Resting in bed did not appear in any distress. Continue therapy modalities 08/18: Evaluated examined at bedside. No major complaints. No distress. Screen for rehab on Saturday. 08/17: Evaluated examined at bedside. Resting in bed did not appear in any distress. Continue therapy for modalities 08/16: Patient seen and examined. He is resting with no apparent distress 08/15: Patient seen and examined. [place] removed yesterday, incision site looks good 08/14/2021 Patient seen and examined Discussed with RN Chart reviewed I called the vascular surgery nurse practitioner to see if they could take the janet out They said they would come later today to check on that (appreciate their help) 08/13/2019 Patient seen and examined He is up in the chair His nurse states he was able to walk to the bathroom twice His feet both still look necrotic Discussed with RN Chart reviewed 08/12/2021 Patient seen and examined Discussed with RN Chart reviewed Left foot still looks necrotic across the toes and the heel The right foot looks slightly better with slight healing of the heel but the toes are still quite necrotic 08/11/2021 Patient seen and examined Discussed with RN Chart reviewed Discussed with case management He took 8 steps yesterday 08/10/2021 Patient seen and examined exam discussed with case management Discussed with RN Chart reviewed No change clinically still wearing lower extremity protectors the toes are necrotic as are the heels 08/09: Seen sitting in chair today. He is wearing his postoperative shoes feels he is minimally stronger. Short of breath on exertion. 08/08: Seen and examined bedside. He is awaiting therapy evaluation today. Foot pain is well controlled. No worsening erythema or fevers but does have some drainage on the lateral left heel wound. No shortness of breath or chest pain. 08/04/2021 Patient seen and examined He is resting with no apparent distress Discussed with case management Chart reviewed Vascular surgery saw him again yesterday and is hoping to only have to do TMA in the future instead of BKA if we let his feett tissues try to recover for a few weeks Appreciate vascular input. 08/03/2021 Patient seen and examined Laying comfortably in bed with flat affect Bilateral heel protectors present; Dry gangrene present on bilateral toes and heels; Discussed with the wound care nurse Discussed with patient the need for vascular surgery input regarding foot surgery and potential bilateral BKA Chart reviewed Discussed with RN 08/02/2021 Patient seen and examined Discussed with RN Chart reviewed He is resting with no apparent distress 08/01/2021 Patient seen and examined He seems depressed and very weak He has heel protectors on both the toes that are exposed are extremely gangrenous and black and demarcated Discussed with the wound care nurse He explains that vascular surgery is awaiting the complete demarcation to finish up and then they will consider surgery at that time Chart reviewed Discussed with RN 07/31/2021 Patient seen and examined Discussed plan Chart reviewed Still feeling weak Mr Lambert is a 60-year-old male that presented 06/29/2021 via [facility] with decreased level of consciousness. Most of the history was obtained via EMS and patient's friend Reese [phone], who states that patient has been sick since about June 22 per Reese, he states that they both had cough cold headache sinus type pain. Per Reese's report patient is okay during the day and very alert and orientated and at night he has a decreased alertness. Patient is unable to help with exam when asked questions he does deny any past medical history, surgeries, or any other health conditions. Reese who is his roommate collaborates any information gotten from the patient. Accu-Chek per EMS was 250, room air sat in the room was 88 to 90%. 07/07: not much improved, about the same. cont current. PULM following. we have no clinimix, cont D5 fluid, 07/08: more alert, can try ST again, if able to sit up, still very weak 07/09: much more alert, bedside swallow of water ok, sits upright, much stronger, will try clears if able, ST to follow. toes are worsening, now black, hannah consult podiatry to follow, 07/10: More alert. Working with speech and swallowing today. Off O2. Less confused. Bilateral toe ulcers assessed by podiatry today. 07/11: More alert, eating. Arterial Doppler was left popliteal and severe distal disease bilaterally. Still has a little bit of a cough. Less confused today. 07/12: Eating reasonably well. Tentative plans for angiogram for consideration of limb salvage bilateral feet tomorrow. Discussed with cardiology. He will n eed significant follow-up care likely eventual amputations. 07/13: N.p.o. for angiogram today with bilateral SFA occlusive disease and left popliteal disease with left posterior tibial artery with some flow otherwise occlusive disease per cardiology. Discussed vascular surgery consultation for consideration of definitive revascularization with likely bilateral transmetatarsal amputations. Still with a little bit of a cough. Shortness of breath 07/14: Seen bedside. Having some pain in his bilateral extremities. Shortness of breath improved still with little bit of cough. Eating again. Amenable to revascularization and likely surgical debridement next week. Increasing thromboprophylaxis 07/15: Seen bedside. Not hypoxic. Cough is improving. He feels he is mental status is improved but he is definitely still mentating slowly. Complains of foot pain. He is contemplating surgical options but is okay with what ever the surgeons to choose for his likely lower extremity bypass tentatively planned for 07/17/202107/16: Bilateral foot pain still with cough but improving. Still is contemplating surgical options. 07/17: Patient off floor for surgery today. Chart evaluated. s/p bilateral pop/tibial thrombectomies with patch angioplasty. s/p RLE hematoma evacuation 07/18: Patient did and examined at bedside. He is postop day 1 from bilateral thrombectomies yesterday. Looks like he may need more surgery prior to discharge. Continue heparin drip. Suspect leukocytosis today secondary to surgery. Continue current. 07/19: Patient evaluated examined at bedside. He was working with physical therapy when seen. Continuing heparin drip. Recheck CBC today. Cardiology following vascular following. Will likely need further surgery prior to discharge. 07/20: Seen at bedside. Having RLE pain and had Hgb drop overnight. Will transfuse. Stop heparin drip for now. Seen by vascular, hematoma evacuation ordered. serial Hgb. 07/21: Patient evaluated examined at bedside. Hemoglobin improved up to 8.1 today. Underwent hematoma evacuation yesterday. Planning for further intervention next week. 07/22: Examine and evaluated at bedside. Resting in bed no major complaints. Hemoglobin stable. Appreciate Cardiology resuming heparin. Further intervention next week. 07/23: Seen at bedside no motor complaints. Hemoglobin still stable. No major clinical changes for today. Intervention this coming week. 07/24: Seen bedside. Has good appetite no cough shortness of breath or chest pain. Left heel with more gangrenous changes left feet. Plan for n.p.o. after midnight 07/25: Seen bedside. N.p.o. for bilateral foot debridement today. K3. Glucose low 100s. Has a friend visiting today. No chest pain or shortness of breath. Pain controlled. 07/26: Changes in the off heparin drip to Xarelto. No significant anticoagulation for 3 months then can start progressive ambulation with physical therapy with postop shoe per vascular surgery recommendations. No shortness of breath or chest pain today just very weak. 2: Up to chair today, has more bilateral foot pain, now wearing post -op shoes. No SOB or cough. He is asking to get back into bed. Encouraged to continue trying to get on his feet. 07/28: In bed. Foot pain is improved from yesterday. No shortness of breath no cough. Still very weak even weak eating today. 07/29: Seen in bed. No foot pain today. No shortness of breath or cough. Still weak eating well. Not out of bed today. Glucose low 100s. 07/30: Seen in bed. Pain-free eating breakfast in bed. Still feeling weak has been up on his foot the last day. Glucose well controlled. Vitals/I&O Vitals/I&O: Vital Signs Date Time Temp Pulse Resp B/P (MAP) Pulse Ox O2 Delivery O2 Flow Rate FiO2 09/10/21 17:59 Room Air 09/10/21 15:00 97.8 95 18 143/69 (93) 98 97.8 09/10/21 07:40 3.0 I & O 09/09/21 09/09/21 09/10/21 14:59 22:59 06:59 Intake Total 120 ml 120 ml Output Total 400 ml 450 ml Balance -400 ml -330 ml 120 ml Physical Exam Physical Exam: lethargic and weak General: Alert, Oriented X3, Cooperative, No acute distress, Other (Resting) Heart: Regular rate, Other (Palpable popliteal pulses bilaterally,biphasic pt signals bilaterally.) Lungs: Clear Abdomen: Normal bowel sounds Extremities: Other (On examination of the left heel there is necrotic tissue within the deep fascia overlying the left calcaneus and the wound on the left heel probes to bone. The left toe amputation incisions are well healing.) Skin: Other (No further hematoma accumulation) Labs Labs: Laboratory Tests Test 09/09/21 23:53 09/10/21 07:40 09/10/21 13:13 09/10/21 17:15 Glucose (Fingerstick) 122 mg/dL (70-99) 103 mg/dL (70-99) 121 mg/dL (70-99) 123 mg/dL (70-99) Assessment and Plan Assessmemt and Plan Problems Medical Problems: (1) Dehydration Status: Acute (2) Mental status alteration Status: Acute (3) Pneumonia Status: Acute Comment Review of Relevant I have reviewed the following items amanda (where applicable) has been applied. Justifications for Admission Other Justification COVID-19 positive test (U07.1, COVID-19) with Acute Pneumonia (J12.89, Other viral pneumonia) (If respiratory failure or sepsis present, add as separate assessment) SIMONE COOPER MD Sep 10, 2021 18:08
[2021-09-10 19:00] VITALS: BP 118/72
[2021-09-10] MEDS: ATORVASTATIN CALCIUM 20 MG TABLET PO SCH (22:16)
[2021-09-10 23:00] VITALS: BP 101/83
[2021-09-11 03:00] VITALS: BP 109/75
[2021-09-11] MEDS: PANTOPRAZOLE 40 MG TABLET.DR. PO SCH (06:26)
[2021-09-11 07:15] VITALS: BP 122/72
[2021-09-11] MEDS: INSULIN LISPRO 300 UNITS/3 ML VIAL. SQ SCH ×3 (08:00→17:00)
[2021-09-11] MEDS: NYSTATIN TOPICAL POWDER 15GM BOTTLE. TP SCH ×2 (09:00→21:25)
--- NOTE | 2021-09-11 09:00 | PDOC ---
Provider Note Date of Service: DATE: 09/11/21 TIME: 08:53 Provider Note Provider Note Vascular S: Patient seen and examined in room. Friend at bedside. Mom at bedside. Discussed options at length. Patient anxious regarding surgical option of bilateral BKAs O: Awake and alert VSS, afebrile Bilateral feet toe amputations healing nicely Right heel with large area of necrotic tissue with exposed bone, left heel with large area of necrotic tissue and thin layer over bone. No erythema or swelling in lower extremities A/P: 1. 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 2. History of COVID pneumonia. 3. 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 s/p bilateral pop/tibial thrombectomies with patch angioplasty 07/17/2021. Feet are well perfused. s/p RLE hematoma evacuation 07/20/2021 s/p Partial amputation of right first through fifth digit, left TMA, bilateral heel debridement Toe amputations are healing nicely, his heel wounds have necrotic tissue with exposed bone on the right. He is getting close to being able to use his forefoot for transfers. Discussed options with the patient of surgical debridement versus amputation. It is more likely that bilateral BKA would give him the best option for healing and rehabilitation. He continues to be uncertain of his decision. Will follow up w ith him tomorrow regarding his decision. Continue local wound care as directed by WC team. Off-load heels. Xarelto would need to be held for amputations or debridements. Will hold xarelto and start lovenox now to allow for surgical intervention in near future Justicifation of Admission Dx: Justifications for Admission: Justification of Admission Dx: FAITH Merino APRN Sep 11, 2021 09:00
--- NOTE | 2021-09-11 10:29 | NUR ---
SW following. Discussed with RN, pt agreed to surgery, planned for tomorrow. SW will continue to follow.
--- NOTE | 2021-09-11 10:32 | PDOC ---
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 s/p bilateral pop/tibial thrombectomies with patch angioplasty s/p RLE hematoma evacuation Metabolic cephalopathy Probable Covid toes IVORY Lactic acidosis Dysphagia Malnutrition Heel erythema Poor nail care Severe malnutrition History of Present Illness History of Present Illness 09/11 Evaluate examined at bedside. Apparently agreeable to amputations now and per report planning for tomorrow? Will at least order n.p.o. at midnight in case of that. Otherwise continue current. Patient pretty distressed when seen 09/10 Evaluate examined at bedside. He was asleep. Bed. Really no clinical changes. Still thinking about if he wants amputations. If no decision by tomorrow he will have to leave the hospital. 09/09 patient evaluated examined at bedside. Resting in bed mother at bedside. Patient said he had no complaints. Mother had multiple questions at bedside about why he needs another surgery. I explained to the best my ability for her and she was still seemed unsatisfied. Either way still no decision on amputations. Again if no decision by Saturday he will have to discharge. 09/08 Evaluated examined at bedside. In bed saying he still has not decided on surgical intervention. Seem to be more fixated on pain meds this morning. Social work note reviewed and agree with the plan if no decision by Saturday then discharging. 09/07 Patient evaluate examined at bedside. Resting in bed doing well. No major complaints. Said he is leaning toward surgical intervention but still thinking. 09/06 Patient evaluated examined at bedside. Resting in bed says pain is controlled. Trying to side still on surgical intervention involving BKA's. Hopeful for decision by tomorrow. 09/05 Patient evaluated examined at bedside. Thinking about if he is agreeable to further surgical intervention. Xarelto switched to Lovenox today in event he is. Continue current otherwise. 09/04/2021: Patient evaluated at bedside. Wound VAC to bilateral feet. Patient being rescreened for acute rehab. He has no complaints today; denies significant pain to bilateral feet. Encourage working with PT/OT. 09/03 Evaluated examined at bedside. Continue current with wound care therapy antibiotics. Discussed with bedside RN. 09/02 Evaluated examined at bedside. Pain controlled. Wound VAC still in place. Continue antibiotics. Therapy modalities 09/01/2021: Patient has no complaints today, reports minimal pain in his bilateral feet. Bilateral wound vacs are in place; he has been nonweightbearing and offloading his heels. He will work with physical therapy and Occupational Therapy today as much as tolerated. Discussed with RN. 08/31 Eval and examined at bedside. POD2. Pain well controlled. PT/OT. Vascular following. 08/30/2021: Patient seen and examined at bedside. POD #1, s/p partial amputation of right first through fifth digit, left TMA, bilateral heel debridement. He is resting in bed comfortably, but does report some residual bilateral feet pain that is controlled with medication. States he has been instructed to rest his heels and has not yet worked with PT/OT. Perhaps we can get him to do some exe rcises that the head of the bed today. Denies fever, nausea, or vomiting. 08/29 Evaluated examined at bedside. Some lower extremity pain. Eager for surgery today. Continue current plan. will follow-up with the patient again after surgery 08/28/2021: Afebrile. Patient denies chest pain or shortness of breath. He reports some left lower extremity pain that is controlled with medications. Reportedly has plans for surgical amputation of left toes tomorrow. 08/26/2021 No acute events overnight. Patient seen examined bedside. No complaints at this time. Pain is well controlled. Patient is ready for surgery on Friday 08/25: Seen bedside. Able to get up. Pain is well controlled. No chest pain or shortness of breath. Continue therapy modalities. Discussed with RN. 08/24: Seen bedside. Has been working with therapy feels is getting stronger. He tells me he thinks he is getting surgery tentatively on 08/29/2021 and will have "most of my toes cut off". 08/23: No acute events overnight. Patient seen and examined bedside. Plan for surgery with vascular surgery on August 29. Continue wound care for now. Osteomyelitis ruled out. Patient's chart, labs, images were reviewed and discussed with RN 08/22: No acute events overnight. Patient seen and examined bedside. Pending vascular surgery evaluation for possible toe amputations. Continue wound care for now. 08/21: Examined at bedside. Clinically stable. Rehab screen. Continue current plan otherwise. 08/20: Eval examined at bedside. No complaints, no distress. Rehab screen tomorrow. 08/19: Evaluated examined at bedside. Resting in bed did not appear in any distress. Continue therapy modalities 08/18: Evaluated examined at bedside. No major complaints. No distress. Screen for rehab on Saturday. 08/17: Evaluated examined at bedside. Resting in bed did not appear in any distress. Continue therapy for modalities 08/16: Patient seen and examined. He is resting with no apparent distress 08/15: Patient seen and examined. Sparks removed yesterday, incision site looks good 08/14/2021 Patient seen and examined Discussed with RN Chart reviewed I called the vascular surgery nurse practitioner to see if they could take the janet out They said they would come later today to check on that (appreciate their help) 08/13/2019 Patient seen and examined He is up in the chair His nurse states he was able to walk to the bathroom twice His feet both still look necrotic Discussed with RN Chart reviewed 08/12/2021 Patient seen and examined Discussed with RN Chart reviewed Left foot still looks necrotic across the toes and the heel The right foot looks slightly better with slight healing of the heel but the t oes are still quite necrotic 08/11/2021 Patient seen and examined Discussed with RN Chart reviewed Discussed with case management He took 8 steps yesterday 08/10/2021 Patient seen and examined exam discussed with case management Discussed with RN Chart reviewed No change clinically still wearing lower extremity protectors the toes are necrotic as are the heels 08/09: Seen sitting in chair today. He is wearing his postoperative shoes feels he is minimally stronger. Short of breath on exertion. 08/08: Seen and examined bedside. He is awaiting therapy evaluation today. Foot pain is well controlled. No worsening erythema or fevers but does have some drainage on the lateral left heel wound. No shortness of breath or chest pain. 08/04/2021 Patient seen and examined He is resting with no apparent distress Discussed with case management Chart reviewed Vascular surgery saw him again yesterday and is hoping to only have to do TMA in the future instead of BKA if we let his feett tissues try to recover for a few weeks Appreciate vascular input. 08/03/2021 Patient seen and examined Laying comfortably in bed with flat affect Bilateral heel protectors present; Dry gangrene present on bilateral toes and heels; Discussed with the wound care nurse Discussed with patient the need for vascular surgery input regarding foot surgery and potential bilateral BKA Chart reviewed Discussed with RN 08/02/2021 Patient seen and examined Discussed with RN Chart reviewed He is resting with no apparent distress 08/01/2021 Patient seen and examined He seems depressed and very weak He has heel protectors on both the toes that are exposed are extremely gangr enous and black and demarcated Discussed with the wound care nurse He explains that vascular surgery is awaiting the complete demarcation to finish up and then they will consider surgery at that time Chart reviewed Discussed with RN 07/31/2021 Patient seen and examined Discussed plan Chart reviewed Still feeling weak Mr Lambert is a 60-year-old male that presented 06/29/2021 via [facility] with decreased level of consciousness. Most of the history was obtained via EMS and patient's friend Reese [phone], who states that patient has been sick since about June 22 per Reese, he states that they both had cough cold head ache sinus type pain. Per Reese's report patient is okay during the day and very alert and orientated and at night he has a decreased alertness. Patient is unable to help with exam when asked questions he does deny any past medical history, surgeries, or any other health conditions. Reese who is his roommate collaborates any information gotten from the patient. Accu-Chek per EMS was 250, room air sat in the room was 88 to 90%. 07/07: not much improved, about the same. cont current. PULM following. we have no clinimix, cont D5 fluid, 07/08: more alert, can try ST again, if able to sit up, still very weak 07/09: much more alert, bedside swallow of water ok, sits upright, much stronger, will try clears if able, ST to follow. toes are worsening, now black, hannah consult podiatry to follow, 07/10: More alert. Working with speech and swallowing today. Off O2. Less confused. Bilateral toe ulcers assessed by podiatry today. 07/11: More alert, eating. Arterial Doppler was left popliteal and severe distal disease bilaterally. Still has a little bit of a cough. Less confused today. 07/12: Eating reasonably well. Tentative plans for angiogram for consideration of limb salvage bilateral feet tomorrow. Discussed with cardiology. He will need significant follow-up care likely eventual amputations. 07/13: N.p.o. for angiogram today with bilateral SFA occlusive disease and left popliteal disease with left posterior tibial artery with some flow otherwise occlusive disease per cardiology. Discussed vascular surgery consultation for consideration of definitive revascularization with likely bilateral transmetatarsal amputations. Still with a little bit of a cough. Shortness of breath 07/14: Seen bedside. Having some pain in his bilateral extremities. Shortness o f breath improved still with little bit of cough. Eating again. Amenable to revascularization and likely surgical debridement next week. Increasing thromboprophylaxis 07/15: Seen bedside. Not hypoxic. Cough is improving. He feels he is mental status is improved but he is definitely still mentating slowly. Complains of foot pain. He is contemplating surgical options but is okay with what ever the surgeons to choose for his likely lower extremity bypass tentatively planned for 07/17/202107/16: Bilateral foot pain still with cough but improving. Still is contemplating surgical options. 07/17: Patient off floor for surgery today. Chart evaluated. s/p bilateral pop/tibial thrombectomies with patch angioplasty. s/p RLE hematoma evacuation 07/18: Patient did and examined at bedside. He is postop day 1 from bilateral thrombectomies yesterday. Looks like he may need more surgery prior to discharge. Continue heparin drip. Suspect leukocytosis today secondary to surgery. Continue current. 07/19: Patient evaluated examined at bedside. He was working with physical therapy when seen. Continuing heparin drip. Recheck CBC today. Cardiology following vascular following. Will likely need further surgery prior to discharge. 07/20: Seen at bedside. Having RLE pain and had Hgb drop overnight. Will transfuse. Stop heparin drip for now. Seen by vascular, hematoma evacuation ordered. serial Hgb. 07/21: Patient evaluated examined at bedside. Hemoglobin improved up to 8.1 today. Underwent hematoma evacuation yesterday. Planning for further intervention next week. 07/22: Examine and evaluated at bedside. Resting in bed no major complaints. Hemoglobin stable. Appreciate Cardiology resuming heparin. Further intervention next week. 07/23: Seen at bedside no motor complaints. Hemoglobin still stable. No major clinical changes for today. Intervention this coming week. 07/24: Seen bedside. Has good appetite no cough shortness of breath or chest pain. Left heel with more gangrenous changes left feet. Plan for n.p.o. after midnight 07/25: Seen bedside. N.p.o. for bilateral foot debridement today. K3. Glucose low 100s. Has a friend visiting today. No chest pain or shortness of breath. Pain controlled. 07/26: Changes in the off heparin drip to Xarelto. No significant anticoagulation for 3 months then can start progressive ambulation with physical therapy with postop shoe per vascular surgery recommendations. No shortness of breath or chest pain today just very weak. 07/27: Up to chair today, has more bilateral foot pain, now wearing post -op shoes. No SOB or cough. He is asking to get back into bed. Encouraged to continue trying to get on his feet. 07/28: In bed. Foot pain is improved from yesterday. No shortness of breath no cough. Still very weak even weak eating today. 07/29: Seen in bed. No foot pain today. No shortness of breath or cough. Still weak eating well. Not out of bed today. Glucose low 100s. 07/30: Seen in bed. Pain-free eating breakfast in bed. Still feeling weak has been up on his foot the last day. Glucose well controlled. Vitals/I&O Vitals/I&O: Vital Signs Date Time Temp Pulse Resp B/P (MAP) Pulse Ox O2 Delivery O2 Flow Rate FiO2 09/11/21 07:15 97.8 74 18 122/72 (89) 96 Room Air 97.8 09/10/21 07:40 3.0 I & O 09/10/21 09/10/21 09/11/21 15:00 23:00 07:00 Intake Total 200 ml 0 ml Output Total 1 ml Balance 200 ml -1 ml Physical Exam Physical Exam: lethargic and weak General: Alert, Oriented X3, Cooperative, No acute distress, Other (Resting) Heart: Regular rate, Other (Palpable popliteal pulses bilaterally,biphasic pt signals bilaterally.) Lungs: Clear Abdomen: Normal bowel sounds Extremities: Other (On examination of the left heel there is necrotic tissue within the deep fascia overlying the left calcaneus and the wound on the left heel probes to bone. The left toe amputation incisions are well healing.) Skin: Other (No further hematoma accumulation) Labs Labs: Laboratory Tests Test 09/10/21 13:13 09/10/21 17:15 09/10/21 21:33 Glucose (Fingerstick) 121 mg/dL (70-99) 123 mg/dL (70-99) 125 mg/dL (70-99) Assessment and Plan Assessmemt and Plan Problems Medical Problems: (1) Dehydration Status: Acute (2) Mental status alteration Status: Acute (3) Pneumonia Status: Acute Comment Review of Relevant I have reviewed the following items amanda (where applicable) has been applied. Justifications for Admission Other Justification COVID-19 positive test (U07.1, COVID-19) with Acute Pneumonia (J12.89, Other viral pneumonia) (If respiratory failure or sepsis present, add as separate assessment) SIMONE COOPER MD Sep 11, 2021 10:32
[2021-09-11 10:57] VITALS: BP 125/85
[2021-09-11] MEDS: ASCORBIC ACID 500 MG TABLET PO SCH (11:08)
[2021-09-11] MEDS: METOPROLOL TART IMMED RELEASE 25 MG TABLET. PO SCH ×2 (11:08→21:21)
[2021-09-11] MEDS: ASPIRIN CHEWABLE 81 MG TABLET. PO SCH (11:08)
[2021-09-11] MEDS: ZINC SULFATE 220 MG CAPSULE. PO SCH (11:08)
[2021-09-11] MEDS: THIAMINE 100 MG TABLET. PO SCH (11:08)
[2021-09-11] MEDS: oxyCODONE/APAP 5/325 1 TAB TABLET PO PRN ×2 (11:19→21:23)
[2021-09-11 15:15] VITALS: BP 125/85
[2021-09-11 17:21] LABS: BASO # 0.1 x10^3/uL (0.0-0.2); BASO % 1 % (0-3); EOS # 0.1 x10^3/uL (0.0-0.7); EOS % 2 % (0-3); HEMATOCRIT 37.2 % (39.0-53.0); LYMPH # 3.2 x10^3/uL (1.0-4.8); LYMPH % 33 % (24-48); MEAN CORPUSCULAR HEMOGLOBIN 29 pg (25-35); MEAN CORPUSCULAR HGB CONC 32 g/dL (31-37); MEAN CORPUSCULAR VOLUME 89 fL (79-100); MONO % 10 % (0-9); NEUT # 5.2 x10^3/uL (1.8-7.7); NEUT % 54 % (31-73); PLATELET COUNT 286 x10^3/uL (140-400); RED BLOOD COUNT 4.17 x10^6/uL (4.30-5.70); RED CELL DISTRIBUTION WIDTH 15.7 % (11.5-14.5); WHITE BLOOD COUNT 9.7 x10^3/uL (4.0-11.0)
[2021-09-11 19:00] VITALS: BP 118/85
--- NOTE | 2021-09-11 19:14 | NUR ---
Covid rapid and PCR sent to lab 1909.
[2021-09-11] MEDS: ATORVASTATIN CALCIUM 20 MG TABLET PO SCH (21:21)
[2021-09-11 23:00] VITALS: BP 123/82
[2021-09-12] VITALS (8 sets, daily range): BP systolic 114–129; BP diastolic 70–99
[2021-09-12] MEDS ORDERED: IV RINGERS,LACTATED 1000ML 1,000 ML IV SCH (06:00)
[2021-09-12] MEDS ORDERED: fentaNYL PF VIAL 100 MCG/2 ML VIAL IVP PRN ×2 (06:00)
[2021-09-12] MEDS ORDERED: HYDROmorphone 2 MG/ML INJ. IVP PRN (06:00)
[2021-09-12] MEDS ORDERED: PROCHLORPERAZINE 10 MG/2 ML VIAL. IVP PRN (06:00)
[2021-09-12] MEDS ORDERED: MORPHINE SULFATE 2 MG/ML INJ. IVP PRN (06:00)
[2021-09-12] MEDS: PANTOPRAZOLE 40 MG TABLET.DR. PO SCH (07:08)
[2021-09-12] MEDS: ASPIRIN CHEWABLE 81 MG TABLET. PO SCH (07:08)
[2021-09-12] MEDS: ZINC SULFATE 220 MG CAPSULE. PO SCH (07:09)
[2021-09-12] MEDS: METOPROLOL TART IMMED RELEASE 25 MG TABLET. PO SCH ×2 (07:09→21:00)
[2021-09-12] MEDS: THIAMINE 100 MG TABLET. PO SCH (07:09)
[2021-09-12] MEDS: ASCORBIC ACID 500 MG TABLET PO SCH (07:09)
[2021-09-12] MEDS: NYSTATIN TOPICAL POWDER 15GM BOTTLE. TP SCH ×2 (07:10→21:00)
[2021-09-12] MEDS: INSULIN LISPRO 300 UNITS/3 ML VIAL. SQ SCH ×3 (07:23→16:28)
--- NOTE | 2021-09-12 10:37 | NUR ---
SW following. Discussed with RN, pt having surgery today. Pt will discharge home with family once stable after surgery. SW will continue to follow.
--- NOTE | 2021-09-12 11:52 | PDOC ---
Provider Note Date of Service: DATE: 09/12/21 TIME: 11:51 Provider Note He is without new complaints. He has had bilateral transmetatarsal amputations. He has heel wounds bilaterally. His right foot wound has deteriorated to the point that he is requiring a right below-knee amputation. He has a left heel wound that extends to deep subcutaneous tissue. There is some necrotic tissue at the wound base. He would likely benefit from excisional debridement of the left heel wound in addition to right below-knee amputation. I discussed this with him in detail. He acknowledged and requested to proceed. Plan right below-knee amputation with excisional debridement of left heel wound and wound VAC placement. Justifications for Admission Other Justification COVID-19 positive test (U07.1, COVID-19) with Acute Pneumonia (J12.89, Other viral pneumonia) (If respiratory failure or sepsis present, add as separate assessment) HASMUKH KLINE MD Sep 12, 2021 11:52
--- NOTE | 2021-09-12 12:10 | PDOC ---
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 s/p bilateral pop/tibial thrombectomies with patch angioplasty s/p RLE hematoma evacuation Metabolic cephalopathy Probable Covid toes IVORY Lactic acidosis Dysphagia Malnutrition Heel erythema Poor nail care Severe malnutrition History of Present Illness History of Present Illness 09/12, surg today, feels OK he is looking into finding a prosthetic on discharge, some amputation society, and he asked me about it doing well, 09/11 Evaluate examined at bedside. Apparently agreeable to amputations now and per report planning for tomorrow? Will at least order n.p.o. at midnight in case of that. Otherwise continue current. Patient pretty distressed when seen 09/10 Evaluate examined at bedside. He was asleep. Bed. Really no clinical changes. Still thinking about if he wants amputations. If no decision by tomorrow he will have to leave the hospital. 09/09 patient evaluated examined at bedside. Resting in bed mother at bedside. Patient said he had no complaints. Mother had multiple questions at bedside about why he needs another surgery. I explained to the best my ability for her and she was still seemed unsatisfied. Either way still no decision on amputations. Again if no decision by Saturday he will have to discharge. 09/08 Evaluated examined at bedside. In bed saying he still has not decided on surgical intervention. Seem to be more fixated on pain meds this morning. Social work note reviewed and agree with the plan if no decision by Saturday then discharging. 09/07 Patient evaluate examined at bedside. Resting in bed doing well. No major complaints. Said he is leaning toward surgical intervention but still thinking. 09/06 Patient evaluated examined at bedside. Resting in bed says pain is controlled. Trying to side still on surgical intervention involving BKA's. Hopeful for decision by tomorrow. 09/05 Patient evaluated examined at bedside. Thinking about if he is agreeable to further surgical intervention. Xarelto switched to Lovenox today in event he is. Continue current otherwise. 09/04/2021: Patient evaluated at bedside. Wound VAC to bilateral feet. Patient being rescreened for acute rehab. He has no complaints today; denies significant pain to bilateral feet. Encourage working with PT/OT. 3/13 Evaluated examined at bedside. Continue current with wound care therapy antibiotics. Discussed with bedside RN. 09/02 Evaluated examined at bedside. Pain controlled. Wound VAC still in place. Continue antibiotics. Therapy modalities 09/01/2021: Patient has no complaints today, reports minimal pain in his bilateral feet. Bilateral wound vacs are in place; he has been nonweightbearing and offloading his heels. He will work with physical therapy and Occupational Therapy today as much as tolerated. Discussed with RN. 08/31 Eval and examined at bedside. POD2. Pain well controlled. PT/OT. Vascular following. 08/30/2021: Patient seen and examined at bedside. POD #1, s/p partial amputation of right first through fifth digit, left TMA, bilateral heel debridement. He is resting in bed comfortably, but does report some residual bilateral feet pain that is controlled with medication. States he has been instructed to rest his heels and has not yet worked with PT/OT. Perhaps we can get him to do some exercises that the head of the bed today. Denies fever, nausea, or vomiting. 08/29 Evaluated examined at bedside. Some lower extremity pain. Eager for surgery today. Continue current plan. will follow-up with the patient again after surgery 08/28/2021: Afebrile. Patient denies chest pain or shortness of breath. He reports some left lower extremity pain that is controlled with medications. Reportedly has plans for surgical amputation of left toes tomorrow. 08/26/2021 No acute events overnight. Patient seen examined bedside. No complaints at this time. Pain is well controlled. Patient is ready for surgery on Friday 08/25: Seen bedside. Able to get up. Pain is well controlled. No chest pain or shortness of breath. Continue therapy modalities. Discussed with RN. 08/24: Seen bedside. Has been working with therapy feels is getting stronger. He tells me he thinks he is getting surgery tentatively on 08/29/2021 and will have "most of my toes cut off". 08/23: No acute events overnight. Patient seen and examined bedside. Plan for surgery with vascular surgery on August 29. Continue wound care for now. Osteomy elitis ruled out. Patient's chart, labs, images were reviewed and discussed with RN 3/1: No acute events overnight. Patient seen and examined bedside. Pending vascular surgery evaluation for possible toe amputations. Continue wound care for now. 08/21: Examined at bedside. Clinically stable. Rehab screen. Continue current plan otherwise. 08/20: Eval examined at bedside. No complaints, no distress. Rehab screen tomorrow. 08/19: Evaluated examined at bedside. Resting in bed did not appear in any distress. Continue therapy modalities 08/18: Evaluated examined at bedside. No major complaints. No distress. Screen for rehab on Saturday. 08/17: Evaluated examined at bedside. Resting in bed did not appear in any distress. Continue therapy for modalities 08/16: Patient seen and examined. He is resting with no apparent distress 08/15: Patient seen and examined. Jesica removed yesterday, incision site looks good 08/14/2021 Patient seen and examined Discussed with RN Chart reviewed I called the vascular surgery nurse practitioner to see if they could take the jesica out They said they would come later today to check on that (appreciate their help) 08/13/2019 Patient seen and examined He is up in the chair His nurse states he was able to walk to the bathroom twice His feet both still look necrotic Discussed with RN Chart reviewed 08/12/2021 Patient seen and examined Discussed with RN Chart reviewed Left foot still looks necrotic across the toes and the heel The right foot looks slightly better with slight healing of the heel but the toes are still quite necrotic 08/11/2021 Patient seen and examined Discussed with RN Chart reviewed Discussed with case management He took 8 steps yesterday 08/10/2021 Patient seen and examined exam discussed with case management Discussed with RN Chart reviewed No change clinically still wearing lower extremity protectors the toes are necrotic as are the heels 08/09: Seen sitting in chair today. He is wearing his postoperative shoes feels he is minimally stronger. Short of breath on exertion. 08/08: Seen and examined bedside. He is awaiting therapy evaluation today. Foot pain is well controlled. No worsening erythema or fevers but does have some drainage on the lateral left heel wound. No shortness of breath or chest pain. 08/04/2021 Patient seen and examined He is resting with no apparent distress Discussed with case management Chart reviewed Vascular surgery saw him again yesterday and is hoping to only have to do TMA in the future instead of BKA if we let his feett tissues try to recover for a few weeks Appreciate vascular input. 08/03/2021 Patient seen and examined Laying comfortably in bed with flat affect Bilateral heel protectors present; Dry gangrene present on bilateral toes and heels; Discussed with the wound care nurse Discussed with patient the need for vascular surgery input regarding foot surgery and potential bilateral BKA Chart reviewed Discussed with RN 08/02/2021 Patient seen and examined Discussed with RN Chart reviewed He is resting with no apparent distress 08/01/2021 Patient seen and examined He seems depressed and very weak He has heel protectors on both the toes that are exposed are extremely gangrenous and black and demarcated Discussed with the wound care nurse He explains that vascular surgery is awaiting the complete demarcation to finish up and then they will consider surgery at that time Chart reviewed Discussed with RN 07/31/2021 Patient seen and examined Discussed plan Chart reviewed Still feeling weak Mr Lambert is a 60-year-old male that presented 06/29/2021 via [facility] with decreased level of consciousness. Most of the history was obtained via EMS and patient's friend Reese [phone], who states that patient has been sick since about June 22 per Reese, he states that they both had cough cold headache sinus type pain. Per Reese's report patient is okay during the day and very alert and orientated and at night he has a decreased alertness. Patient is unable to help with exam when asked questions he does deny any past medical history, surgeries, or any other health conditions. Reese who is his roommate collaborates any information gotten from the patient. Accu-Chek per EMS was 250, room air sat in the room was 88 to 90%. 07/07: not much improved, about the same. cont current. PULM following. we have no clinimix, cont D5 fluid, 07/08: more alert, can try ST again, if able to sit up, still very weak 07/09: much more alert, bedside swallow of water ok, sits upright, much stronger, will try clears if able, ST to follow. toes are worsening, now black, hannah consult podiatry to follow, 07/10: More alert. Working with speech and swallowing today. Off O2. Less confused. Bilateral toe ulcers assessed by podiatry today. 07/11: More alert, eating. Arterial Doppler was left popliteal and severe distal disease bilaterally. Still has a little bit of a cough. Less confused today. 07/12: Eating reasonably well. Tentative plans for angiogram for consideration of limb salvage bilateral feet tomorrow. Discussed with cardiology. He will need significant follow-up care likely eventual amputations. 07/13: N.p.o. for angiogram today with bilateral SFA occlusive disease and left popliteal disease with left posterior tibial artery with some flow otherwise occlusive disease per cardiology. Discussed vascular surgery consultation for consideration of definitive revascularization with likely bilateral transmetatarsal amputations. Still with a little bit of a cough. Shortness of breath 07/14: Seen bedside. Having some pain in his bilateral extremities. Shortness of breath improved still with little bit of cough. Eating again. Amenable to revascularization and likely surgical debridement next week. Increasing thromboprophylaxis 07/15: Seen bedside. Not hypoxic. Cough is improving. He feels he is mental status is improved but he is definitely still mentating slowly. Complains of foot pain. He is contemplating surgical options but is okay with what ever the surgeons to choose for his likely lower extremity bypass tentatively planned for 07/17/202107/16: Bilateral foot pain still with cough but improving. Still is contemplating surgical options. 07/17: Patient off floor for surgery today. Chart evaluated. s/p bilateral pop/tibial thrombectomies with patch angioplasty. s/p RLE hematoma evacuation 07/18: Patient did and examined at bedside. He is postop day 1 from bilateral thrombectomies yesterday. Looks like he may need more surgery prior to discharge. Continue heparin drip. Suspect leukocytosis today secondary to surgery. Continue current. 07/19: Patient evaluated examined at bedside. He was working with physical therapy when seen. Continuing heparin drip. Recheck CBC today. Cardiology following vascular following. Will likely need further surgery prior to discharge. 07/20: Seen at bedside. Having RLE pain and had Hgb drop overnight. Will transfuse. Stop heparin drip for now. Seen by vascular, hematoma evacuation ordered. serial Hgb. 07/21: Patient evaluated examined at bedside. Hemoglobin improved up to 8.1 today. Underwent hematoma evacuation yesterday. Planning for further intervention next week. 07/22: Examine and evaluated at bedside. Resting in bed no major complaints. Hemoglobin stable. Appreciate Cardiology resuming heparin. Further intervention next week. 07/23: Seen at bedside no motor complaints. Hemoglobin still stable. No major clinical changes for today. Intervention this coming week. 07/24: Seen bedside. Has good appetite no cough shortness of breath or chest pain. Left heel with more gangrenous changes left feet. Plan for n.p.o. after midnight 07/25: Seen bedside. N.p.o. for bilateral foot debridement today. K3. Glucose low 100s. Has a friend visiting today. No chest pain or shortness of breath. Pain controlled. 07/26: Changes in the off heparin drip to Xarelto. No significant anticoagulation for 3 months then can start progressive ambulation with physical therapy with postop shoe per vascular surgery recommendations. No shortness of breath or chest pain today just very weak. 07/27: Up to chair today, has more bilateral foot pain, now wearing post -op shoes. No SOB or cough. He is asking to get back into bed. Encouraged to germania nue trying to get on his feet. 07/28: In bed. Foot pain is improved from yesterday. No shortness of breath no cough. Still very weak even weak eating today. 07/29: Seen in bed. No foot pain today. No shortness of breath or cough. Still weak eating well. Not out of bed today. Glucose low 100s. 07/30: Seen in bed. Pain-free eating breakfast in bed. Still feeling weak has been up on his foot the last day. Glucose well controlled. Vitals/I&O Vitals/I&O: Vital Signs Date Time Temp Pulse Resp B/P (MAP) Pulse Ox O2 Delivery O2 Flow Rate FiO2 09/12/21 11:09 98.2 90 20 116/75 (89) 96 Room Air 98.2 I & O 09/11/21 09/11/21 09/12/21 14:59 22:59 06:59 Intake Total 360 ml 770 ml Output Total 150 ml 400 ml Balance 360 ml 620 ml -400 ml Physical Exam Physical Exam: lethargic and weak General: Alert, Oriented X3, Cooperative, No acute distress, Other (Resting) Heart: Regular rate, Other (Palpable popliteal pulses bilaterally,biphasic pt signals bilaterally.) Lungs: Clear Abdomen: Normal bowel sounds Extremities: Other (On examination of the left heel there is necrotic tissue within the deep fascia overlying the left calcaneus and the wound on the left heel probes to bone. The left toe amputation incisions are well healing.) Skin: Other (No further hematoma accumulation) Labs Labs: Laboratory Tests Test 09/11/21 16:55 09/11/21 19:10 09/11/21 20:40 09/12/21 07:15 White Blood Count 9.7 x10^3/uL (4.0-11.0) Red Blood Count 4.17 x10^6/uL (4.30-5.70) Hemoglobin 12.0 g/dL (13.0-17.5) Hematocrit 37.2 % (39.0-53.0) Mean Corpuscular Volume 89 fL (79-100) Mean Corpuscular Hemoglobin 29 pg (25-35) Mean Corpuscular Hemoglobin Concent 32 g/dL (31-37) Red Cell Distribution Width 15.7 % (11.5-14.5) Platelet Count 286 x10^3/uL (140-400) Neutrophils (%) (Auto) 54 % (31-73) Lymphocytes (%) (Auto) 33 % (24-48) Monocytes (%) (Auto) 10 % (0-9) Eosinophils (%) (Auto) 2 % (0-3) Basophils (%) (Auto) 1 % (0-3) Neutrophils # (Auto) 5.2 x10^3/uL (1.8-7.7) Lymphocytes # (Auto) 3.2 x10^3/uL (1.0-4.8) Monocytes # (Auto) 1.0 x10^3/uL (0.0-1.1) Eosinophils # (Auto) 0.1 x10^3/uL (0.0-0.7) Basophils # (Auto) 0.1 x10^3/uL (0.0-0.2) Glucose (Fingerstick) 120 mg/dL (70-99) 127 mg/dL (70-99) 103 mg/dL (70-99) SARS-CoV-2 Antigen (Rapid) Negative (NEGATIVE) Test 09/12/21 11:32 Glucose (Fingerstick) 118 mg/dL (70-99) Assessment and Plan Assessmemt and Plan Problems Medical Problems: (1) Dehydration Status: Acute (2) Mental status alteration Status: Acute (3) Pneumonia Status: Acute Comment Review of Relevant I have reviewed the following items amanda (where applicable) has been applied. Justifications for Admission Other Justification COVID-19 positive test (U07.1, COVID-19) with Acute Pneumonia (J12.89, Other viral pneumonia) (If respiratory failure or sepsis present, add as separate assessment) SHELLIE CAR MD Sep 12, 2021 12:10
[2021-09-12] MEDS ORDERED: PROPOFOL 10 MG/ML (20ML) VIAL. IV ONE (14:30)
[2021-09-12] MEDS ORDERED: LIDOCAINE 2% PF 5 ML VIAL. ONE (14:30)
[2021-09-12] MEDS ORDERED: fentaNYL PF VIAL 100 MCG/2 ML VIAL ONE (14:30)
[2021-09-12] MEDS ORDERED: DEXAMETHASONE SOD PHOS 4 MG/ML VIAL ONE (14:31)
[2021-09-12] MEDS ORDERED: ONDANSETRON PF 4 MG/2 ML VIAL. ONE (14:31)
[2021-09-12] MEDS ORDERED: PHENYLEPHRINE in 0.9% NACL PF 1 MG/10 ML SYRINGE. IV ONE (14:56)
[2021-09-12] MEDS ORDERED: KETAMINE HCL IN NACL, ISO-OSM 50 MG/5 ML SYRINGE ONE (15:00)
[2021-09-12] MEDS ORDERED: HYDROmorphone 2 MG/ML INJ. ONE (15:20)
--- NOTE | 2021-09-12 16:19 | PDOC4 ---
OPERATIVE NOTE Date: Date: Sep 12, 2021 Pre-Op Diagnosis: Peripheral arterial disease with progressive gangrenous changes to the right heel with clinical osteomyelitis Left heel ulcer Recovering encephalopathy Post-Op Diagnosis: Same Procedure Performed: Right below knee amputation Excisional debridement left heel including skin and subcutaneous tissue (4.5 cm x 3 cm x 0.5 cm depth) Wound VAC placement on left foot Surgeon: Kwesi Kline MD SUPERVISOR HEAT TREATING: Eveline Mendoza APRN Anesthesia Type: General Blood Loss: 50 mL Specimans Obtained: Right leg Findings: He had some marginal viability of muscle and the anterior and lateral brenda rtment of the right leg with inimal contractility. The remainder of the tissue appeared viable. Primary closure of right leg amputation was performed. Wound on left heel extended to deep subcutaneous tissue. There is good bleeding at the base of the wound after debridement. Wound measurements as above. Wound VAC placed over the open wound due to failure of other local wound care techniques. Complications: None Operative Note: He was taken to the operating room placed on the operating table. He underwent general anesthetic. His right lower extremity as well as left foot and ankle were prepped and draped in normal sterile fashion. A Bioclusive stockinette was placed over the right foot. Please note that a tourniquet was placed on the right thigh prior to prepping and draping. After appropriate timeout, the right leg was exsanguinated using an Esmarch bandage and the tourniquet inflated to 250 mmHg. Total tourniquet time was approximately 18 minutes. An incision was made approximately 10 cm below the right tibial tuberosity. This was carried down through fascia as well as anterior and lateral compartment muscle. Anterior tibial vessels were clamped and ligated with 2-0 silk ties. The tibia was encircled, and periosteum was elevated. The tibia was divided with an oscillating saw. The fibula was then encircled and mobilized proximal to the tibial division. The fibula was divided approximately a centimeter proximal to the tibial division with an oscillating saw. Posterior flap was then developed and right leg passed off the field. Tibial vessels were clamped and suture ligated with 2-0 silk ligature. Tibial nerve was similarly clamped and mobilized proximally and suture ligated with 2-0 silk ligature. The tourniquet was released. Hemostasis obtained with electrocautery as well as suture ligatures. Once hemostasis was obtained, the anterior portion of the tibia was beveled using the saw. The right leg was irrigated with saline irrigation. Fascia was reapproximated with interrupted 2-0 Vicryl suture. Running subdermal 3-0 Vicryl suture was placed followed by skin janet. Xeroform followed by 4 x 4's soft roll and Coban was applied. Attention was then turned to the left foot. Excisional debridement was performed on if the nonviable tissue over the left heel. Forceps and scissors were used to excise all nonviable tissue down to viable subcutaneous tissue. There is good bleeding of the deep tissue that was controlled with electrocautery. The wound measured 4.5 cm x 3.0 cm x 0.5 cm depth. Wound was irrigated and surrounding tissue washed. He has had a previous left forte smetatarsal amputation. There was some liquefied hematoma expressed along the incision. No erythema or obvious purulence to suggest infection, however. Clear drape was placed to protect the surrounding skin around the open heel wound. Silver granular foam placed and cut to the appropriate size for the left heel wound tracking up onto the dorsum of the foot for the suction pad. Wound VAC was applied thus. Wound VAC was placed to 125 mmHg continuous suction. Patient tolerated procedure well there are no complications. Eveline Mendoza assisted with right leg amputation and closure as well as left foot debridement and wound VAC placement. KWESI KLINE MD Sep 12, 2021 16:19
[2021-09-12] MEDS: oxyCODONE/APAP 5/325 1 TAB TABLET PO PRN (19:34)
[2021-09-12] MEDS: ATORVASTATIN CALCIUM 20 MG TABLET PO SCH (21:00)
[2021-09-13] MEDS: oxyCODONE/APAP 5/325 1 TAB TABLET PO PRN ×4 (02:20→20:07)
[2021-09-13 03:00] VITALS: BP 120/78
[2021-09-13 07:45] VITALS: BP 114/76
[2021-09-13] MEDS: INSULIN LISPRO 300 UNITS/3 ML VIAL. SQ SCH ×3 (07:45→17:00)
--- NOTE | 2021-09-13 08:02 | PDOC ---
PROGRESS NOTES Date of Service DATE: 09/13/21 TIME: 07:55 Subjective Subjective No acute events overnight pain well controlled Objective Objective Vital Signs Date Time Temp Pulse Resp B/P (MAP) Pulse Ox O2 Delivery O2 Flow Rate FiO2 09/13/21 07:49 Room Air 09/13/21 03:00 98.2 74 14 120/78 (92) 93 98.2 09/12/21 17:00 2.0 Intake and Output 09/13/21 06:59 Intake Total 1050 ml Output Total 300 ml Balance 750 ml Intake Oral 100 ml IV Total 950 ml Output Urine Total 250 ml Estimated Blood Loss 50 ml Physical Exam Abdomen: Soft, No tenderness Heart: Regular rate General: Alert, Oriented X3 Neuro: Normal speech, Cranial nerves 3-12 NL Skin: Other (Rigth BKA dressing c/d/i with coban in place. No evidence of complication or hematoma. Left foot dressed with wound vac in place with good seal noted) Assessment Assessment Plan Plan of Care POD 1 Right BKA POD 1 Left heel debridement and wound vac placement Rigid stump protector today to right leg Dressing down tomorrow Resume DVT chemoppx but hold full anticoagulation for now Wound care to assist with wound vac, likely change tomorrow on left heel. ON assessment of the wound there was no bone exposed so there is hope this could potentially heal if outpatient wound vac can be arranged. Comment Review of Relevant I have reviewed the following items amanda (where applicable) has been applied. Labs Laboratory Tests Test 09/11/21 11:41 09/11/21 16:55 09/11/21 19:10 09/11/21 20:40 Glucose (Fingerstick) 126 mg/dL (70-99) 120 mg/dL (70-99) 127 mg/dL (70-99) White Blood Count 9.7 x10^3/uL (4.0-11.0) Red Blood Count 4.17 x10^6/uL (4.30-5.70) Hemoglobin 12.0 g/dL (13.0-17.5) Hematocrit 37.2 % (39.0-53.0) Mean Corpuscular Volume 89 fL (79-100) Mean Corpuscular Hemoglobin 29 pg (25-35) Mean Corpuscular Hemoglobin Concent 32 g/dL (31-37) Red Cell Distribution Width 15.7 % (11.5-14.5) Platelet Count 286 x10^3/uL (140-400) Neutrophils (%) (Auto) 54 % (31-73) Lymphocytes (%) (Auto) 33 % (24-48) Monocytes (%) (Auto) 10 % (0-9) Eosinophils (%) (Auto) 2 % (0-3) Basophils (%) (Auto) 1 % (0-3) Neutrophils # (Auto) 5.2 x10^3/uL (1.8-7.7) Lymphocytes # (Auto) 3.2 x10^3/uL (1.0-4.8) Monocytes # (Auto) 1.0 x10^3/uL (0.0-1.1) Eosinophils # (Auto) 0.1 x10^3/uL (0.0-0.7) Basophils # (Auto) 0.1 x10^3/uL (0.0-0.2) Coronavirus (COVID-19)(PCR) Not detected (NOT DETECTD) SARS-CoV-2 Antigen (Rapid) Negative (NEGATIVE) Test 09/12/21 07:15 09/12/21 11:32 09/12/21 16:19 09/12/21 20:43 Glucose (Fingerstick) 103 mg/dL (70-99) 118 mg/dL (70-99) 98 mg/dL (70-99) 129 mg/dL (70-99) Test 09/13/21 07:39 Glucose (Fingerstick) 106 mg/dL (70-99) Laboratory Tests Test 09/12/21 11:32 09/12/21 16:19 09/12/21 20:43 09/13/21 07:39 Glucose (Fingerstick) 118 mg/dL (70-99) 98 mg/dL (70-99) 129 mg/dL (70-99) 106 mg/dL (70-99) Microbiology 08/29/21 Gram Stain - Final, Complete 08/29/21 Aerobic and Anaerobic Culture - Final, Complete Staphylococcus Aureus Staphylococcus Aureus#2 Finegoldia Magna Medications Current Medications Sodium Chloride 1,000 ml @ 999 mls/hr 1X ONCE IV Last administered on 06/29/21at 19:10; Start 06/29/21 at 19:00; Stop 06/29/21 at 20:00; Status DC Dexamethasone Sodium Phosphate (Decadron) 10 mg 1X ONCE IV Last administered on 06/29/21at 20:30; Start 06/29/21 at 20:00; Stop 06/29/21 at 20:05; Status DC Sodium Chloride 1,000 ml @ 999 mls/hr 1X ONCE IV Last administered on 06/29/21at 20:30; Start 06/29/21 at 20:00; Stop 06/29/21 at 21:00; Status DC Ceftriaxone Sodium (Rocephin) 1 gm 1X ONCE IVP Last administered on 06/29/21at 20:29; Start 06/29/21 at 20:00; Stop 06/29/21 at 20:05; Status DC Azithromycin 250 ml @ 250 mls/hr 1X ONCE IV Last administered on 06/29/21at 20:00; Start 06/29/21 at 20:00; Stop 06/29/21 at 20:59; Status DC Sodium Chloride 1,000 ml @ 75 mls/hr [id number] IV Last administered on 06/30/21at 12:32; Start 06/29/21 at 20:45; Stop 06/30/21 at 20:44; Status DC Info (FLU VACCINE SCREEN per RX) 0.5 each 1X ONCE MC ; Start 07/01/21 at 09:00; Stop 07/01/21 at 09:01; Status DC Ascorbic Acid (Vitamin C) 3,000 mg TID PO Last administered on 07/25/21at 12:10; Start 06/30/21 at 21:00; Stop 07/25/21 at 15:43; Status DC Dexamethasone Sodium Phosphate (Decadron) 6 mg DAILY IVP Last administered on 07/10/21at 08:57; Start 06/30/21 at 16:00; Stop 07/10/21 at 12:29; Status DC Thiamine Mononitrate (Vitamin B-1) 300 mg DAILY PO Last administered on 07/25/21at 12:10; Start 06/30/21 at 16:00; Stop 07/25/21 at 15:43; Status DC Zinc Sulfate (Orazinc) 220 mg DAILY PO Last administered on 09/11/21at 11:08; Start 06/30/21 at 16:00 Sennosides (Senna) 17.2 mg PRN BID PRN PO CONSTIPATION Last administered on 08/13/21at 09:08; Start 06/30/21 at 15:15 Docusate Sodium (Colace) 100 mg PRN DAILY PRN PO HARD STOOLS Last administered on 08/13/21at 09:08; Start 06/30/21 at 15:15 Ondansetron HCl (Zofran) 4 mg PRN Q6HRS PRN IVP NAUSEA/VOMITING, 1st CHOICE; Start 06/30/21 at 15:15; Stop 07/05/21 at 14:02; Status DC Dextrose (Dextrose 50%-Water Syringe) 12.5 gm PRN Q15MIN PRN IV SEE COMMENTS; Start 06/30/21 at 15:15; Stop 07/05/21 at 12:45; Status DC Acetaminophen (Tylenol) 650 mg PRN Q4HRS PRN PO TEMP OVER 100.4F OR MILD PAIN; Start 06/30/21 at 15:15 Lorazepam (Ativan) 0.5 mg PRN Q6HRS PRN PO ANXIETY / AGITATION; Start 06/30/21 at 15:15; Stop 07/05/21 at 14:02; Status DC Lorazepam (Ativan Inj) 0.25 mg PRN Q4HRS PRN IV ANXIETY / AGITATION; Start 06/30/21 at 15:15; Stop 07/05/21 at 14:02; Status DC Enoxaparin Sodium (Lovenox 40mg Syringe) 40 mg Q24H SQ Last administered on 07/13/21at 17:20; Start 06/30/21 at 16:00; Stop 07/14/21 at 12:21; Status DC Prochlorperazine Edisylate (Compazine) 10 mg PRN Q6HRS PRN IV NAUSEA/VOMITING, 2nd CHOICE; Start 06/30/21 at 15:15; Stop 07/05/21 at 14:02; Status DC Diphenhydramine HCl (Benadryl) 25 mg PRN Q6HRS PRN IVP ITCHING; Start 06/30/21 at 15:15; Stop 07/05/21 at 14:02; Status DC Diphenhydramine HCl (Benadryl) 25 mg PRN Q6HRS PRN PO ITCHING; Start 06/30/21 at 15:15; Stop 07/05/21 at 14:02; Status DC Diphenhydramine HCl (Benadryl) 25 mg PRN QHS PRN PO INSOMNIA, 1ST CHOICE; Start 06/30/21 at 15:15; Stop 07/05/21 at 14:02; Status DC Zolpidem Tartrate (Ambien) 2.5 mg PRN QHS PRN PO INSOMNIA, 2ND CHOICE; Start 06/30/21 at 15:15; Stop 07/05/21 at 14:02; Status DC Pantoprazole Sodium (PROTONIX VIAL for IV PUSH) 40 mg DAILYAC IVP Last administered on 07/27/21at 08:44; Start 06/30/21 at 16:00; Stop 07/27/21 at 16:51; Status DC Amino Acids/ Electrolytes/ Dextrose 1,000 ml @ 80 mls/hr [id number] IV ; Start 07/04/21 at 09:15; Status UNV Dextrose/Lactated Ringer's 1,000 ml @ 80 mls/hr [id number] IV Last administered on 07/12/21at 06:27; Start 07/04/21 at 09:30; Stop 07/12/21 at 10:58; Status DC Insulin Human Lispro (HumaLOG) 0-5 UNITS TIDWMEALS SQ Last administered on 08/16/21at 12:05; Start 07/05/21 at 17:00 Dextrose (Dextrose 50%-Water Syringe) 12.5 gm PRN Q15MIN PRN IV SEE COMMENTS Last administered on 07/09/21at 23:48; Start 07/05/21 at 12:45 Aspirin (Ecotrin) 81 mg DAILYWBKFT PO Last administered on 07/20/21at 08:52; Start 07/11/21 at 15:00; Stop 07/20/21 at 14:10; Status DC Atorvastatin Calcium (Lipitor) 20 mg QHS PO Last administered on 09/12/21at 21:00; Start 07/11/21 at 21:00 Metoprolol Tartrate (Lopressor) 25 mg BID PO Last administered on 09/12/21at 21:00; Start 07/12/21 at 12:15 Heparin Sodium/ Sodium Chloride (HEPARIN for ARTERIAL LINE FLUSH) 1,000 unit 1X ONCE IART Last administered on 07/13/21at 13:00; Start 07/13/21 at 13:00; Stop 07/13/21 at 13:01; Status DC Heparin Sodium/ Sodium Chloride (HEPARIN for ARTERIAL LINE FLUSH) 1,000 unit 1X ONCE IART Last administered on 07/13/21at 13:00; Start 07/13/21 at 13:00; Stop 07/13/21 at 13:01; Status DC Midazolam HCl (Versed) 2 mg 1X ONCE IV Last administered on 07/13/21at 13:20; Start 07/13/21 at 13:00; Stop 07/13/21 at 13:01; Status DC Fentanyl Citrate (Fentanyl 2ml Vial) 100 mcg 1X ONCE IV Last administered on 07/13/21at 13:20; Start 07/13/21 at 13:00; Stop 07/13/21 at 13:01; Status DC Iodixanol (Visipaque 320) 100 ml 1X ONCE IART Last administered on 07/13/21at 13:50; Start 07/13/21 at 13:00; Stop 07/13/21 at 13:01; Status DC Lidocaine HCl (Lidocaine 1% 20ml Vial) 20 ml 1X ONCE INJ Last administered on 07/13/21at 13:22; Start 07/13/21 at 13:00; Stop 07/13/21 at 13:01; Status DC Nitroglycerin (Nitroglycerin) 200 mcg 1X ONCE IART Last administered on 07/13/21at 13:23; Start 07/13/21 at 13:30; Stop 07/13/21 at 13:35; Status DC Verapamil HCl (Verapamil) 2.5 mg 1X ONCE IART Last administered on 07/13/21at 13:23; Start 07/13/21 at 13:30; Stop 07/13/21 at 13:35; Status DC Heparin Sodium (Porcine) (Heparin Sodium) 2,500 unit 1X ONCE IART Last administered on 07/13/21at 13:30; Start 07/13/21 at 13:30; Stop 07/13/21 at 13:35; Status DC Potassium Chloride (Klor-Con) 20 meq 1X ONCE PO Last administered on 07/14/21at 11:48; Start 07/14/21 at 11:00; Stop 07/14/21 at 11:01; Status DC Enoxaparin Sodium (Lovenox 80mg Syringe) 80 mg Q12HR SQ Last administered on 07/16/21at 21:01; Start 07/14/21 at 13:00; Stop 07/17/21 at 12:12; Status DC Fentanyl Citrate (Fentanyl 2ml Vial) 25 mcg PRN Q5MIN PRN IVP MILD PAIN 1-3; Start 07/17/21 at 06:00; Stop 07/18/21 at 06:00; Status DC Fentanyl Citrate (Fentanyl 2ml Vial) 50 mcg PRN Q5MIN PRN IVP MODERATE PAIN 4- 6; Start 07/17/21 at 06:00; Stop 07/18/21 at 06:00; Status DC Morphine Sulfate (Morphine Sulfate) 1 mg PRN Q10MIN PRN IVP SEVERE PAIN 7-10; Start 07/17/21 at 06:00; Stop 07/18/21 at 06:00; Status DC Ringer's Solution 1,000 ml @ 30 mls/hr Q24H IV Last administered on 07/17/21at 07:50; Start 07/17/21 at 06:00; Stop 07/17/21 at 17:59; Status DC Hydromorphone HCl (Dilaudid) 0.5 mg PRN Q10MIN PRN IVP SEVERE PAIN 7-10, 2nd CHOICE; Start 07/17/21 at 06:00; Stop 07/18/21 at 06:00; Status DC Prochlorperazine Edisylate (Compazine) 5 mg PACU PRN PRN IVP NAUSEA, MRX1; Start 07/17/21 at 06:00; Stop 07/18/21 at 06:00; Status DC Cefazolin Sodium 1 gm/Sodium Chloride 500 ml @ 500 mls/hr 1X ONCE IRR Last administered on 07/17/21at 08:57; Start 07/17/21 at 08:00; Stop 07/17/21 at 08:59; Status DC Heparin Sodium (Porcine) 5000 unit/Sodium Chloride 505 ml @ 505 mls/hr 1X ONCE IRR Last administered on 07/17/21at 08:57; Start 07/17/21 at 08:00; Stop 07/17/21 at 08:59; Status DC Sodium Chloride 1,000 ml @ 100 mls/hr Q10H IV Last administered on 07/21/21at 10:38; Start 07/17/21 at 12:00; Stop 07/21/21 at 15:21; Status DC Morphine Sulfate (Morphine Sulfate) 2 mg PRN Q2HR PRN IVP PAIN Last administered on 07/20/21at 09:38; Start 07/17/21 at 08:15; Stop 07/28/21 at 10:15; Status DC Oxycodone/ Acetaminophen (Percocet 5/325) 1 tab PRN Q4HRS PRN PO MODERATE PAIN Last administered on 08/27/21at 18:11; Start 07/17/21 at 08:15 Sugammadex Sodium (Bridion) 200 mg 1X ONCE IVP ; Start 07/17/21 at 09:30; Stop 07/17/21 at 09:31; Status DC Cefazolin Sodium 1 gm/Sodium Chloride 500 ml @ 500 mls/hr 1X ONCE IRR Last administered on 07/17/21at 10:30; Start 07/17/21 at 10:30; Stop 07/17/21 at 11:29; Status DC Cellulose (Surgicel Fibrillar 1x2) 1 each STK-MED ONCE TP Last administered on 07/17/21at 11:23; Start 07/17/21 at 11:23; Stop 07/17/21 at 11:26; Status DC Heparin Sodium/ Dextrose 250 ml @ 10 mls/hr q10hr IV ; Start 07/17/21 at 12:15; Stop 07/17/21 at 12:15; Status DC Cefazolin Sodium/ Dextrose 50 ml @ 100 mls/hr Q8HRS IV Last administered on 07/17/21at 19:52; Start 07/17/21 at 14:00; Stop 07/17/21 at 22:29; Status DC Heparin Sodium/ Dextrose 250 ml @ 10 mls/hr q10hr IV ; Start 07/17/21 at 12:15; Stop 07/17/21 at 13:04; Status DC Heparin Sodium/ Dextrose 250 ml @ 10 mls/hr CONT PRN PRN IV SEE PROTOCOL Last administered on 07/17/21at 13:00; Start 07/17/21 at 13:15; Stop 07/18/21 at 11:06; Status DC Heparin Sodium/ Dextrose 250 ml @ 13.264 mls/ hr CONT PRN IV PER PROTOCOL Last administered on 07/19/21at 21:46; Start 07/18/21 at 11:15; Stop 07/20/21 at 09:38; Status DC Heparin Sodium (Porcine) (Heparin Sodium) 2,500 unit PRN Q6HRS PRN IV FOR UFH LEVEL LESS THAN 0.2; Start 07/18/21 at 11:15; Stop 07/20/21 at 13:11; Status DC Heparin Sodium (Porcine) (Heparin Sodium) 1,250 unit PRN Q6HRS PRN IV FOR UFH LEVEL 0.2 - 0.29 Last administered on 07/18/21at 20:10; Start 07/18/21 at 11:15; Stop 07/20/21 at 13:11; Status DC Glycopyrrolate (Glycopyrrolate) 1 mg STK-MED ONCE .ROUTE ; Start 07/17/21 at 12:00; Stop 07/18/21 at 12:44; Status DC Heparin Sodium/ Sodium Chloride 500 ml @ As Directed STK-MED ONCE .ROUTE ; Start 07/13/21 at 08:02; Stop 07/18/21 at 12:49; Status DC Iodixanol (Visipaque 320) 100 ml STK-MED ONCE .ROUTE ; Start 07/13/21 at 08:02; Stop 07/18/21 at 12:49; Status DC Heparin Sodium/ Sodium Chloride 1,000 ml @ As Directed STK-MED ONCE .ROUTE ; Start 07/13/21 at 12:45; Stop 07/18/21 at 12:53; Status DC Midazolam HCl (Versed) 2 mg STK-MED ONCE .ROUTE ; Start 07/13/21 at 12:46; Stop 07/18/21 at 12:53; Status DC Fentanyl Citrate (Fentanyl 2ml Vial) 100 mcg STK-MED ONCE .ROUTE ; Start at 12:46; Stop 07/18/21 at 12:53; Status DC Heparin Sodium (Porcine) (Heparin Sodium) 10,000 unit STK-MED ONCE .ROUTE ; Sta rt 07/13/21 at 12:52; Stop 07/18/21 at 12:53; Status DC Verapamil HCl (Verapamil) 5 mg STK-MED ONCE .ROUTE ; Start 07/13/21 at 13:12; Stop 07/18/21 at 12:53; Status DC Cellulose (Surgicel Fibrillar 1x2) 1 each STK-MED ONCE .ROUTE ; Start 07/17/21 at 07:08; Stop 07/18/21 at 13:29; Status DC Iohexol (Omnipaque 300 Mg/ml) 50 ml STK-MED ONCE .ROUTE ; Start 07/17/21 at 07:08; Stop 07/18/21 at 13:29; Status DC Protamine Sulfate (Protamine) 50 mg STK-MED ONCE IV ; Start 07/17/21 at 07:08; Stop 07/18/21 at 13:29; Status DC Phenylephrine HCl (Jesus-Synephrine Inj) 10 mg STK-MED ONCE .ROUTE ; Start 07/17/21 at 05:34; Stop 07/18/21 at 13:30; Status DC Ephedrine Sulfate (ePHEDrine PF IN SALINE SYRINGE) 50 mg STK-MED ONCE IV ; Start 07/17/21 at 05:34; Stop 07/18/21 at 13:30; Status DC Succinylcholine Chloride (Anectine) 200 mg STK-MED ONCE .ROUTE ; Start 07/17/21 at 05:35; Stop 07/18/21 at 13:30; Status DC Epinephrine HCl (Adrenalin) 1 mg STK-MED ONCE .ROUTE ; Start 07/17/21 at 05:35; Stop 07/18/21 at 13:30; Status DC Protamine Sulfate (Protamine) 50 mg STK-MED ONCE IV ; Start 07/17/21 at 07:35; Stop 07/18/21 at 13:31; Status DC Heparin Sodium (Porcine) (Heparin Sodium) 10,000 unit STK-MED ONCE .ROUTE ; Start 07/17/21 at 07:35; Stop 07/18/21 at 13:31; Status DC Dexamethasone Sodium Phosphate (Decadron) 4 mg STK-MED ONCE .ROUTE ; Start 07/17/21 at 07:35; Stop 07/18/21 at 13:31; Status DC Ondansetron HCl (Zofran) 4 mg STK-MED ONCE .ROUTE ; Start 07/17/21 at 07:35; Stop 07/18/21 at 13:31; Status DC Epinephrine HCl (EPINEPHrine SYRINGE) 1 mg STK-MED ONCE .ROUTE ; Start 07/17/21 at 07:35; Stop 07/18/21 at 13:31; Status DC Midazolam HCl (Versed) 2 mg STK-MED ONCE .ROUTE ; Start 07/17/21 at 07:37; Stop 07/18/21 at 13:31; Status DC Fentanyl Citrate (Fentanyl 5ml Vial) 250 mcg STK-MED ONCE .ROUTE ; Start 07/17/21 at 07:37; Stop 07/18/21 at 13:31; Status DC Cefazolin Sodium/ Dextrose 50 ml @ As Directed STK-MED ONCE IV ; Start 07/17/21 at 08:51; Stop 07/18/21 at 13:35; Status DC Hydromorphone HCl (Dilaudid) 2 mg STK-MED ONCE .ROUTE ; Start 07/17/21 at 11:54; Stop 07/18/21 at 13:36; Status DC Fentanyl Citrate (Fentanyl 2ml Vial) 100 mcg STK-MED ONCE .ROUTE ; Start 07/17/21 at 11:54; Stop 07/18/21 at 13:36; Status DC Morphine Sulfate (Morphine Sulfate) 2 mg STK-MED ONCE .ROUTE ; Start 07/17/21 at 11:55; Stop 07/18/21 at 13:36; Status DC Cefazolin Sodium/ Dextrose 50 ml @ 100 mls/hr 1X PREOP PRN IV PRIOR TO PROCEDURE Last administered on 07/20/21at 15:45; Start 07/20/21 at 14:00; Stop 07/21/21 at 13:59; Status DC Cefazolin Sodium/ Dextrose 50 ml @ As Directed STK-MED ONCE IV ; Start 07/20/21 at 13:50; Stop 07/20/21 at 13:50; Status DC Propofol (Diprivan) 200 mg STK-MED ONCE IV ; Start 07/20/21 at 14:06; Stop 07/20/21 at 14:07; Status DC Lidocaine HCl (Xylocaine-Mpf 1% 5ml Vial) 5 ml STK-MED ONCE .ROUTE ; Start 07/20/21 at 14:07; Stop 07/20/21 at 14:07; Status DC Fentanyl Citrate (Fentanyl 2ml Vial) 100 mcg STK-MED ONCE .ROUTE ; Start 07/20/21 at 14:07; Stop 07/20/21 at 14:07; Status DC Cellulose (Surgicel Fibrillar 1x2) 1 each STK-MED ONCE .ROUTE Last administered on 07/20/21at 16:07; Start 07/20/21 at 16:04; Stop 07/20/21 at 16:05; Status DC Fentanyl Citrate (Fentanyl 2ml Vial) 25 mcg PRN Q5MIN PRN IVP MILD PAIN 1-3; Start 07/20/21 at 16:15; Stop 07/21/21 at 02:00; Status DC Fentanyl Citrate (Fentanyl 2ml Vial) 50 mcg PRN Q5MIN PRN IVP MODERATE PAIN 4- 6; Start 07/20/21 at 16:15; Stop 07/21/21 at 02:00; Status DC Morphine Sulfate (Morphine Sulfate) 1 mg PRN Q10MIN PRN IVP SEVERE PAIN 7-10; Start 07/20/21 at 16:15; Stop 07/21/21 at 02:00; Status DC Hydromorphone HCl (Dilaudid) 0.5 mg PRN Q10MIN PRN IVP SEVERE PAIN 7-10, 2nd CHOICE; Start 07/20/21 at 16:15; Stop 07/21/21 at 02:00; Status DC Prochlorperazine Edisylate (Compazine) 5 mg PACU PRN PRN IVP NAUSEA, MRX1; Start 07/20/21 at 16:15; Stop 07/25/21 at 07:58; Status DC Insulin Human Lispro (HumaLOG VIAL for OP,RR ONLY) 0-10 units PRN Q1HR PRN SQ PER PROTOCOL; Start 07/20/21 at 16:15; Stop 07/21/21 at 16:14; Status DC Cefazolin Sodium/ Dextrose 50 ml @ 100 mls/hr Q8HRS IV Last administered on 07/21/21at 05:21; Start 07/20/21 at 22:00; Stop 07/21/21 at 06:29; Status DC Oxycodone/ Acetaminophen (Percocet 5/325) 2 tab PRN Q4HRS PRN PO SEVERE PAIN Last administered on 09/13/21at 02:20; Start 07/20/21 at 16:45 Hydromorphone HCl (Dilaudid) 2 mg STK-MED ONCE .ROUTE ; Start 07/20/21 at 16:50; Stop 07/20/21 at 16:50; Status DC Aspirin (Aspirin Chewable) 81 mg DAILYWBKFT PO Last administered on 09/11/21at 11:08; Start 07/23/21 at 08:00 Heparin Sodium/ Dextrose 250 ml @ 8.789 mls/ hr CONT PRN IV PER PROTOCOL Last administered on 07/25/21at 20:23; Start 07/22/21 at 16:30; Stop 07/26/21 at 13:44; Status DC Heparin Sodium (Porcine) (Heparin Sodium) 2,000 unit PRN Q6HRS PRN IV FOR UFH LEVEL LESS THAN 0.2 Last administered on 07/23/21at 01:17; Start 07/22/21 at 16:30; Stop 07/26/21 at 13:44; Status DC Cefazolin Sodium/ Dextrose 50 ml @ 100 mls/hr 1X PREOP PRN IV PRIOR TO PROCEDURE; Start 07/25/21 at 06:00; Stop 07/25/21 at 18:00; Status DC Cefazolin Sodium 1 gm/Sodium Chloride 500 ml @ 500 mls/hr 1X ONCE IRR ; Start 07/25/21 at 06:00; Stop 07/25/21 at 07:00; Status DC Fentanyl Citrate (Fentanyl 2ml Vial) 25 mcg PRN Q5MIN PRN IVP MILD PAIN 1-3; Start 07/25/21 at 06:00; Stop 07/25/21 at 20:00; Status DC Fentanyl Citrate (Fentanyl 2ml Vial) 50 mcg PRN Q5MIN PRN IVP MODERATE PAIN 4- 6; Start 07/25/21 at 06:00; Stop 07/25/21 at 20:00; Status DC Morphine Sulfate (Morphine Sulfate) 1 mg PRN Q10MIN PRN IVP SEVERE PAIN 7-10; Start 07/25/21 at 06:00; Stop 07/25/21 at 20:00; Status DC Ringer's Solution 1,000 ml @ 30 mls/hr Q24H IV Last administered on 07/25/21at 07:58; Start 07/25/21 at 06:00; Stop 07/25/21 at 17:59; Status DC Hydromorphone HCl (Dilaudid) 0.5 mg PRN Q10MIN PRN IVP SEVERE PAIN 7-10, 2nd CHOICE; Start 07/25/21 at 06:00; Stop 07/25/21 at 20:00; Status DC Prochlorperazine Edisylate (Compazine) 5 mg PACU PRN PRN IVP NAUSEA, MRX1; Start 07/25/21 at 06:00; Stop 07/25/21 at 20:00; Status DC Propofol (Diprivan) 200 mg STK-MED ONCE IV ; Start 07/25/21 at 06:52; Stop 07/25/21 at 06:53; Status DC Fentanyl Citrate (Fentanyl 2ml Vial) 100 mcg STK-MED ONCE .ROUTE ; Start 07/25/21 at 06:53; Stop 07/25/21 at 06:53; Status DC Rocuronium [place] (Zemuron) 50 mg STK-MED ONCE .ROUTE ; Start 07/25/21 at 06:59; Stop 07/25/21 at 06:59; Status DC Ondansetron HCl (Zofran) 4 mg STK-MED ONCE .ROUTE ; Start 07/25/21 at 07:08; Stop 07/25/21 at 07:08; Status DC Dexamethasone Sodium Phosphate (Decadron) 4 mg STK-MED ONCE .ROUTE ; Start 07/25/21 at 07:08; Stop 07/25/21 at 07:08; Status DC Potassium Chloride/Water 100 ml @ 100 mls/hr Q1H IV Last administered on 07/25/21at 13:25; Start 07/25/21 at 08:00; Stop 07/25/21 at 13:59; Status DC Lidocaine HCl (Xylocaine 1% Pf 30ml Vial) 30 ml STK-MED ONCE .ROUTE ; Start 07/25/21 at 07:55; Stop 07/25/21 at 07:56; Status DC Ascorbic Acid (Vitamin C) 500 mg DAILY PO Last administered on 09/11/21at 11:08; Start 07/26/21 at 09:00 Thiamine Mononitrate (Vitamin B-1) 100 mg DAILY PO Last administered on 09/11/21at 11:08; Start 07/26/21 at 09:00 Rivaroxaban (Xarelto) 20 mg DAILYWSUP PO Last administered on 09/04/21at 17:39; Start 07/26/21 at 17:00; Stop 09/05/21 at 11:02; Status DC Pantoprazole Sodium (Protonix) 40 mg DAILYAC PO Last administered on 09/11/21at 06:26; Start 07/28/21 at 07:30 Nystatin (Nystop) 1 alison BID TP Last administered on 09/10/21at 22:16; Start 08/03/21 at 21:00 Info (Anti-Coagulation Monitoring By Pharmacy) 1 each PRN DAILY PRN MC PER PROTOCOL Last administered on 08/27/21at 10:46; Start 08/05/21 at 12:30 Cefazolin Sodium 1 gm/Sodium Chloride 500 ml @ 500 mls/hr 1X ONCE IRR Last administered on 08/29/21at 07:39; Start 08/29/21 at 06:00; Stop 08/29/21 at 06:59; Status DC Fentanyl Citrate (Fentanyl 2ml Vial) 25 mcg PRN Q5MIN PRN IVP MILD PAIN 1-3; Start 08/29/21 at 06:00; Stop 08/29/21 at 11:45; Status DC Fentanyl Citrate (Fentanyl 2ml Vial) 50 mcg PRN Q5MIN PRN IVP MODERATE PAIN 4-6 Last administered on 08/29/21at 09:33; Start 08/29/21 at 06:00; Stop 08/29/21 at 11:45; Status DC Morphine Sulfate (Morphine Sulfate) 1 mg PRN Q10MIN PRN IVP SEVERE PAIN 7-10 Last administered on 08/29/21at 10:10; Start 08/29/21 at 06:00; Stop 08/29/21 at 11:45; Status DC Ringer's Solution 1,000 ml @ 30 mls/hr Q24H IV Last administered on 08/29/21at 07:06; Start 08/29/21 at 06:00; Stop 08/29/21 at 17:59; Status DC Hydromorphone HCl (Dilaudid) 0.5 mg PRN Q10MIN PRN IVP SEVERE PAIN 7-10, 2nd CHOICE; Start 08/29/21 at 06:00; Stop 08/29/21 at 11:45; Status DC Prochlorperazine Edisylate (Compazine) 5 mg PACU PRN PRN IVP NAUSEA, MRX1; Start 08/29/21 at 06:00; Stop 08/29/21 at 11:45; Status DC Cefazolin Sodium/ Dextrose 50 ml @ 100 mls/hr 1X PREOP PRN IV PRIOR TO PROCEDURE Last administered on 08/29/21at 07:18; Start 08/29/21 at 06:00; Stop 08/29/21 at 11:44; Status DC Fentanyl Citrate (Fentanyl 2ml Vial) 100 mcg STK-MED ONCE .ROUTE ; Start 08/29/21 at 06:51; Stop 08/29/21 at 06:51; Status DC Dexamethasone Sodium Phosphate (Decadron) 4 mg STK-MED ONCE .ROUTE ; Start 08/29/21 at 06:51; Stop 08/29/21 at 06:52; Status DC Ondansetron HCl (Zofran) 4 mg STK-MED ONCE .ROUTE ; Start 08/29/21 at 06:51; Stop 08/29/21 at 06:52; Status DC Lidocaine HCl (Lidocaine Pf 2% Vial) 5 ml STK-MED ONCE .ROUTE ; Start 08/29/21 at 06:51; Stop 08/29/21 at 06:52; Status DC Lidocaine HCl (Lidocaine Pf 2% Vial) 5 ml STK-MED ONCE .ROUTE ; Start 08/29/21 at 06:51; Stop 08/29/21 at 06:52; Status DC Propofol (Diprivan) 200 mg STK-MED ONCE IV ; Start 08/29/21 at 06:51; Stop 08/29/21 at 06:52; Status DC Cefazolin Sodium/ Dextrose 50 ml @ As Directed STK-MED ONCE IV ; Start 08/29/21 at 07:02; Stop 08/29/21 at 07:02; Status DC Ketamine HCl (Ketamine) 50 mg STK-MED ONCE .ROUTE ; Start 08/29/21 at 07:56; Stop 08/29/21 at 07:56; Status DC Cefazolin Sodium (Ancef) 1 gm Q8H IVP Last administered on 08/30/21at 06:34; Start 08/29/21 at 15:00; Stop 08/30/21 at 07:01; Status DC Fentanyl Citrate (Fentanyl 2ml Vial) 100 mcg STK-MED ONCE .ROUTE ; Start 08/29/21 at 09:17; Stop 08/29/21 at 09:18; Status DC Morphine Sulfate (Morphine Sulfate) 2 mg STK-MED ONCE .ROUTE ; Start 08/29/21 at 09:50; Stop 08/29/21 at 09:51; Status DC Cefazolin Sodium/ Dextrose (Ancef 2gm Premix) 2 gm STK-MED ONCE IV ; Start 08/29/21 at 07:02; Stop 08/30/21 at 10:43; Status DC Phenylephrine HCl (PHENYLEPHRINE in 0.9% NACL PF) 1 mg STK-MED ONCE IV ; Start 08/29/21 at 07:01; Stop 09/01/21 at 09:16; Status DC Enoxaparin Sodium (Lovenox 80mg Syringe) 80 mg Q12HR SQ Last administered on 09/11/21at 11:19; Start 09/05/21 at 21:00 Cefazolin Sodium/ Dextrose 50 ml @ 100 mls/hr 1X PREOP PRN IV PRIOR TO PROCEDURE Last administered on 09/12/21at 15:00; Start 09/12/21 at 06:00; Stop 09/12/21 at 18:00; Status DC Cefazolin Sodium 1 gm/Sodium Chloride 500 ml @ 500 mls/hr 1X ONCE IRR ; Start 09/12/21 at 06:00; Stop 09/12/21 at 06:59; Status DC Fentanyl Citrate (Fentanyl 2ml Vial) 25 mcg PRN Q5MIN PRN IVP MILD PAIN 1-3; Start 09/12/21 at 06:00; Stop 09/13/21 at 05:59; Status DC Fentanyl Citrate (Fentanyl 2ml Vial) 50 mcg PRN Q5MIN PRN IVP MODERATE PAIN 4- 6; Start 09/12/21 at 06:00; Stop 09/13/21 at 05:59; Status DC Morphine Sulfate (Morphine Sulfate) 1 mg PRN Q10MIN PRN IVP SEVERE PAIN 7-10; Start 09/12/21 at 06:00; Stop 09/13/21 at 05:59; Status DC Ringer's Solution 1,000 ml @ 30 mls/hr Q24H IV Last administered on 09/12/21at 13:29; Start 09/12/21 at 06:00; Stop 09/12/21 at 17:59; Status DC Hydromorphone HCl (Dilaudid) 0.5 mg PRN Q10MIN PRN IVP SEVERE PAIN 7-10, 2nd CHOICE; Start 09/12/21 at 06:00; Stop 09/13/21 at 05:59; Status DC Prochlorperazine Edisylate (Compazine) 5 mg PACU PRN PRN IVP NAUSEA, MRX1; Start 09/12/21 at 06:00; Stop 09/13/21 at 05:59; Status DC Cefazolin Sodium/ Dextrose 50 ml @ As Directed STK-MED ONCE IV ; Start 09/12/21 at 13:24; Stop 09/12/21 at 13:25; Status DC Active Scripts Active No Active Prescriptions or Reported Medications Vitals/I & O Vital Sign - Last 24 Hours 09/12/21 09/12/21 09/12/21 09/12/21 08:00 11:09 13:21 16:15 Temp 98.2 98.2 98.2 98.2 98.2 98.2 Pulse 90 90 90 Resp 20 15 18 B/P (MAP) 116/75 (89) 116/75 138/87 Pulse Ox 96 96 98 O2 Delivery Room Air Room Air Room Air Simple Mask O2 Flow Rate 3.0 15.0 09/12/21 09/12/21 09/12/21 09/12/21 16:25 16:30 16:45 17:00 Temp 97.8 97.8 98.0 97.8 97.8 98.0 Pulse 92 92 92 Resp 19 21 21 B/P (MAP) 146/86 141/89 148/80 Pulse Ox 97 95 100 O2 Delivery Mask Simple Mask Nasal Cannula Nasal Cannula O2 Flow Rate 15.0 10.0 2.0 2.0 09/12/21 09/12/21 09/12/21 09/12/21 17:15 17:30 17:45 18:00 Temp 98.3 97.7 98.2 97.9 98.3 97.7 98.2 97.9 Pulse 90 80 Resp 18 16 20 18 B/P (MAP) 114/99 (104) 121/70 (87) 118/85 (96) 129/76 (93) Pulse Ox 97 95 O2 Delivery Room Air Room Air Room Air Room Air 09/12/21 09/12/21 09/12/21 09/12/21 19:34 19:50 20:04 21:00 Pulse 80 B/P (MAP) 129/76 O2 Delivery Room Air Room Air Room Air 09/12/21 09/13/21 09/13/21 09/13/21 23:09 02:20 03:00 07:49 Temp 98.4 98.2 98.4 98.2 Pulse 84 74 Resp 14 14 B/P (MAP) 127/71 (89) 120/78 (92) Pulse Ox 95 93 O2 Delivery Room Air Room Air Room Air Room Air Intake and Output 09/12/21 09/12/21 09/13/21 14:59 22:59 06:59 Intake Total 0 ml 1050 ml 0 ml Output Total 50 ml 250 ml Balance 0 ml 1000 ml -250 ml Justifications for Admission Other Justification COVID-19 positive test (U07.1, COVID-19) with Acute Pneumonia (J12.89, Other viral pneumonia) (If respiratory failure or sepsis present, add as separate assessment) GABRIELE AVITIA MD Sep 13, 2021 08:02
[2021-09-13] MEDS ORDERED: ENOXAPARIN 40 MG/0.4 ML SYRINGE. SQ ONE (08:15)
[2021-09-13] MEDS: METOPROLOL TART IMMED RELEASE 25 MG TABLET. PO SCH ×2 (08:34→20:07)
[2021-09-13] MEDS: ASCORBIC ACID 500 MG TABLET PO SCH (08:34)
[2021-09-13] MEDS: PANTOPRAZOLE 40 MG TABLET.DR. PO SCH (08:35)
[2021-09-13] MEDS: ZINC SULFATE 220 MG CAPSULE. PO SCH (08:35)
[2021-09-13] MEDS: ASPIRIN CHEWABLE 81 MG TABLET. PO SCH (08:35)
[2021-09-13] MEDS: THIAMINE 100 MG TABLET. PO SCH (08:35)
[2021-09-13] MEDS: NYSTATIN TOPICAL POWDER 15GM BOTTLE. TP SCH ×2 (08:39→21:00)
--- NOTE | 2021-09-13 10:02 | NUR ---
SW following. 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 Wound Care working on a soto wound vac. Pt will need to follow in the wound clinic about twice a week upon discharge. SW to discuss with Trinidad Albright RN for [facility] home health options. SW will continue to follow.
[2021-09-13 10:14] LABS: HEMATOCRIT 35.3 % (39.0-53.0); HEMOGLOBIN 11.2 g/dL (13.0-17.5); RED BLOOD COUNT 3.99 x10^6/uL (4.30-5.70); RED CELL DISTRIBUTION WIDTH 15.9 % (11.5-14.5); WHITE BLOOD COUNT 10.2 x10^3/uL (4.0-11.0)
[2021-09-13 11:04] VITALS: BP 123/82
--- NOTE | 2021-09-13 13:35 | PDOC ---
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 s/p bilateral pop/tibial thrombectomies with patch angioplasty s/p RLE hematoma evacuation Metabolic cephalopathy Probable Covid toes IVORY Lactic acidosis Dysphagia Malnutrition Heel erythema Poor nail care Severe malnutrition History of Present Illness History of Present Illness 09/13, surg yesterday feels OK, diong better, trying to dc plan for soon 09/12 he is looking into finding a prosthetic on discharge, some amputation society, and he asked me about it doing well, 09/11 Evaluate examined at bedside. Apparently agreeable to amputations now and per report planning for tomorrow? Will at least order n.p.o. at midnight in case of that. Otherwise continue current. Patient pretty distressed when seen 09/10 Evaluate examined at bedside. He was asleep. Bed. Really no clinical changes. Still thinking about if he wants amputations. If no decision by tomorrow he will have to leave the hospital. 09/09 patient evaluated examined at bedside. Resting in bed mother at bedside. Patient said he had no complaints. Mother had multiple questions at bedside about why he needs another surgery. I explained to the best my ability for her and she was still seemed unsatisfied. Either way still no decision on amputations. Again if no decision by Saturday he will have to discharge. 09/08 Evaluated examined at bedside. In bed saying he still has not decided on surgical intervention. Seem to be more fixated on pain meds this morning. Social work note reviewed and agree with the plan if no decision by Saturday then discharging. 09/07 Patient evaluate examined at bedside. Resting in bed doing well. No major complaints. Said he is leaning toward surgical intervention but still thinking. 09/06 Patient evaluated examined at bedside. Resting in bed says pain is controlled. Trying to side still on surgical intervention involving BKA's. Hopeful for decision by tomorrow. 09/05 Patient evaluated examined at bedside. Thinking about if he is agreeable to further surgical intervention. Xarelto switched to Lovenox today in event he is. Continue current otherwise. 09/04/2021: Patient evaluated at bedside. Wound VAC to bilateral feet. Patient being rescreened for acute rehab. He has no complaints today; denies significant pain to bilateral feet. Encourage working with PT/OT. 09/03 Evaluated examined at bedside. Continue current with wound care therapy antibiotics. Discussed with bedside RN. 09/02 Evaluated examined at bedside. Pain controlled. Wound VAC still in place. Continue antibiotics. Therapy modalities 09/01/2021: Patient has no complaints today, reports minimal pain in his bilateral feet. Bilateral wound vacs are in place; he has been nonweightbearing and offloading his heels. He will work with physical therapy and Occupational Therapy today as much as tolerated. Discussed with RN. 08/31 Thuy and examined at bedside. POD2. Pain well controlled. PT/OT. Vascular following. 08/30/2021: Patient seen and examined at bedside. POD #1, s/p partial amputation of right first through fifth digit, left TMA, bilateral heel debridement. He is resting in bed comfortably, but does report some residual bilateral feet pain that is controlled with medication. States he has been instructed to rest his h eels and has not yet worked with PT/OT. Perhaps we can get him to do some exercises that the head of the bed today. Denies fever, nausea, or vomiting. 08/29 Evaluated examined at bedside. Some lower extremity pain. Eager for surgery today. Continue current plan. will follow-up with the patient again after surgery 08/28/2021: Afebrile. Patient denies chest pain or shortness of breath. He reports some left lower extremity pain that is controlled with medications. Reportedly has plans for surgical amputation of left toes tomorrow. 08/26/2021 No acute events overnight. Patient seen examined bedside. No complaints at this time. Pain is well controlled. Patient is ready for surgery on Friday 08/25: Seen bedside. Able to get up. Pain is well controlled. No chest pain or shortness of breath. Continue therapy modalities. Discussed with RN. 08/24: Seen bedside. Has been working with therapy feels is getting stronger. He tells me he thinks he is getting surgery tentatively on 08/29/2021 and will have "most of my toes cut off". 08/23: No acute events overnight. Patient seen and examined bedside. Plan for surgery with vascular surgery on August 29. Continue wound care for now. Osteomyelitis ruled out. Patient's chart, labs, images were reviewed and discussed with RN 08/22: No acute events overnight. Patient seen and examined bedside. Pending vascular surgery evaluation for possible toe amputations. Continue wound care for now. 08/21: Examined at bedside. Clinically stable. Rehab screen. Continue current plan otherwise. 08/20: Eval examined at bedside. No complaints, no distress. Rehab screen tomorrow. 08/19: Evaluated examined at bedside. Resting in bed did not appear in any distress. Continue therapy modalities 08/18: Evaluated examined at bedside. No major complaints. No distress. Screen for rehab on Saturday. 08/17: Evaluated examined at bedside. Resting in bed did not appear in any distress. Continue therapy for modalities 08/16: Patient seen and examined. He is resting with no apparent distress 08/15: Patient seen and examined. Jesica removed yesterday, incision site looks good 08/14/2021 Patient seen and examined Discussed with RN Chart reviewed I called the vascular surgery nurse practitioner to see if they could take the jesica out They said they would come later today to check on that (appreciate their help) 08/13/2019 Patient seen and examined He is up in the chair His nurse states he was able to walk to the bathroom twice His feet both still look necrotic Discussed with RN Chart reviewed 08/12/2021 Patient seen and examined Discussed with RN Chart reviewed Left foot still looks necrotic across the toes and the heel The right foot looks slightly better with slight healing of the heel but the toes are still quite necrotic 08/11/2021 Patient seen and examined Discussed with RN Chart reviewed Discussed with case management He took 8 steps yesterday 08/10/2021 Patient seen and examined exam discussed with case management Discussed with RN Chart reviewed No change clinically still wearing lower extremity protectors the toes are necrotic as are the heels 08/09: Seen sitting in chair today. He is wearing his postoperative shoes feels he is minimally stronger. Short of breath on exertion. 08/08: Seen and examined bedside. He is awaiting therapy evaluation today. Foot pain is well controlled. No worsening erythema or fevers but does have some drainage on the lateral left heel wound. No shortness of breath or chest pain. 08/04/2021 Patient seen and examined He is resting with no apparent distress Discussed with case management Chart reviewed Vascular surgery saw him again yesterday and is hoping to only have to do TMA in the future instead of BKA if we let his feett tissues try to recover for a few weeks Appreciate vascular input. 08/03/2021 Patient seen and examined Laying comfortably in bed with flat affect Bilateral heel protectors present; Dry gangrene present on bilateral toes and heels; Discussed with the wound care nurse Discussed with patient the need for vascular surgery input regarding foot surgery and potential bilateral BKA Chart reviewed Discussed with RN 08/02/2021 Patient seen and examined Discussed with RN Chart reviewed He is resting with no apparent distress 08/01/2021 Patient seen and examined He seems depressed and very weak He has heel protectors on both the toes that are exposed are extremely gangrenous and black and demarcated Discussed with the wound care nurse He explains that vascular surgery is awaiting the complete demarcation to finish up and then they will consider surgery at that time Chart reviewed Discussed with RN 07/31/2021 Patient seen and examined Discussed plan Chart reviewed Still feeling weak Mr Lambert is a 60-year-old male that presented 06/29/2021 via [facility] with decreased level of consciousness. Most of the history was obtained via EMS and patient's friend Reese [phone], who states that patient has been sick since about June 22 per Reese, he states that they both had cough cold headache sinus type pain. Per Reese's report patient is okay during the day and very alert and orientated and at night he has a decreased alertness. Patient is unable to help with exam when asked questions he does deny any past medical history, surgeries, or any other health conditions. Reese who is his roommate collaborates any information gotten from the patient. Accu-Chek per EMS was 250, room air sat in the room was 88 to 90%. 07/07: not much improved, about the same. cont current. PULM following. we have no clinimix, cont D5 fluid, 07/08: more alert, can try ST again, if able to sit up, still very weak 07/09: much more alert, bedside swallow of water ok, sits upright, much stronger, will try clears if able, ST to follow. toes are worsening, now black, hannah consult podiatry to follow, 07/10: More alert. Working with speech and swallowing today. Off O2. Less confused. Bilateral toe ulcers assessed by podiatry today. 07/11: More alert, eating. Arterial Doppler was left popliteal and severe distal disease bilaterally. Still has a little bit of a cough. Less confused today. 07/12: Eating reasonably well. Tentative plans for angiogram for consideration of limb salvage bilateral feet tomorrow. Discussed with cardiology. He will need significant follow-up care likely eventual amputations. 07/13: N.p.o. for angiogram today with bilateral SFA occlusive disease and left popliteal disease with left posterior tibial artery with some flow otherwise occlusive disease per cardiology. Discussed vascular surgery consultation for consideration of definitive revascularization with likely bilateral transmetatarsal amputations. Still with a little bit of a cough. Shortness of breath 07/14: Seen bedside. Having some pain in his bilateral extremities. Shortness of breath improved still with little bit of cough. Eating again. Amenable to revascularization and likely surgical debridement next week. Increasing thromboprophylaxis 07/15: Seen bedside. Not hypoxic. Cough is improving. He feels he is mental status is improved but he is definitely still mentating slowly. Complains of foot pain. He is contemplating surgical options but is okay with what ever the surgeons to choose for his likely lower extremity bypass tentatively planned for 07/17/202107/16: Bilateral foot pain still with cough but improving. Still is contemplating surgical options. 07/17: Patient off floor for surgery today. Chart evaluated. s/p bilateral pop/tibial thrombectomies with patch angioplasty. s/p RLE hematoma evacuation 07/18: Patient did and examined at bedside. He is postop day 1 from bilateral thrombectomies yesterday. Looks like he may need more surgery prior to discharge. Continue heparin drip. Suspect leukocytosis today secondary to surgery. Continue current. 07/19: Patient evaluated examined at bedside. He was working with physical therapy when seen. Continuing heparin drip. Recheck CBC today. Cardiology following vascular following. Will likely need further surgery prior to discharge. 07/20: Seen at bedside. Having RLE pain and had Hgb drop overnight. Will transfuse. Stop heparin drip for now. Seen by vascular, hematoma evacuation ordered. serial Hgb. 07/21: Patient evaluated examined at bedside. Hemoglobin improved up to 8.1 today. Underwent hematoma evacuation yesterday. Planning for further intervention next week. 07/22: Examine and evaluated at bedside. Resting in bed no major complaints. Hemoglobin stable. Appreciate Cardiology resuming heparin. Further intervention next week. 07/23: Seen at bedside no motor complaints. Hemoglobin still stable. No major clinical changes for today. Intervention this coming week. 07/24: Seen bedside. Has good appetite no cough shortness of breath or chest pain. Left heel with more gangrenous changes left feet. Plan for n.p.o. after midnight 07/25: Seen bedside. N.p.o. for bilateral foot debridement today. K3. Glucose low 100s. Has a friend visiting today. No chest pain or shortness of breath. Pain controlled. 07/26: Changes in the off heparin drip to Xarelto. No significant anticoagulation for 3 months then can start progressive ambulation with physical therapy with postop shoe per vascular surgery recommendations. No shortness of breath or chest pain today just very weak. 2: Up to chair today, has more bilateral foot pain, now wearing post -op shoes. No SOB or cough. He is asking to get back into bed. Encouraged to continue trying to get on his feet. 2: In bed. Foot pain is improved from yesterday. No shortness of breath no cough. Still very weak even weak eating today. 07/29: Seen in bed. No foot pain today. No shortness of breath or cough. Still weak eating well. Not out of bed today. Glucose low 100s. 2: Seen in bed. Pain-free eating breakfast in bed. Still feeling weak has been up on his foot the last day. Glucose well controlled. Vitals/I&O Vitals/I&O: Vital Signs Date Time Temp Pulse Resp B/P (MAP) Pulse Ox O2 Delivery O2 Flow Rate FiO2 09/13/21 11:04 98.3 83 16 123/82 (96) 94 Room Air 98.3 09/12/21 17:00 2.0 I & O 09/12/21 09/12/21 09/13/21 15:00 23:00 07:00 Intake Total 0 ml 1050 ml 0 ml Output Total 50 ml 250 ml Balance 0 ml 1000 ml -250 ml Physical Exam Physical Exam: lethargic and weak General: Alert, Oriented X3 Heart: Regular rate Lungs: Clear Abdomen: Soft, No tenderness Extremities: Other (On examination of the left heel there is necrotic tissue within the deep fascia overlying the left calcaneus and the wound on the left heel probes to bone. The left toe amputation incisions are well healing.) Skin: Other (Rigth BKA dressing c/d/i with coban in place. No evidence of complication or hematoma. Left foot dressed with wound vac in place with good seal noted) Labs Labs: Laboratory Tests Test 09/12/21 16:19 09/12/21 20:43 09/13/21 07:39 09/13/21 10:01 Glucose (Fingerstick) 98 mg/dL (70-99) 129 mg/dL (70-99) 106 mg/dL (70-99) White Blood Count 10.2 x10^3/uL (4.0-11.0) Red Blood Count 3.99 x10^6/uL (4.30-5.70) Hemoglobin 11.2 g/dL (13.0-17.5) Hematocrit 35.3 % (39.0-53.0) Mean Corpuscular Volume 89 fL (79-100) Mean Corpuscular Hemoglobin 28 pg (25-35) Mean Corpuscular Hemoglobin Concent 32 g/dL (31-37) Red Cell Distribution Width 15.9 % (11.5-14.5) Platelet Count 311 x10^3/uL (140-400) Test 09/13/21 12:04 Glucose (Fingerstick) 121 mg/dL (70-99) Assessment and Plan Assessmemt and Plan Problems Medical Problems: (1) Dehydration Status: Acute (2) Mental status alteration Status: Acute (3) Pneumonia Status: Acute Comment Review of Relevant I have reviewed the following items amanda (where applicable) has been applied. Medications: Current Medications Medications (Trade) Dose Ordered Sig/Vicente Route PRN Reason Start Time Stop Time Status Last Admin Dose Admin Enoxaparin Sodium (Lovenox 40mg Syringe) 40 mg 1X ONCE SQ 09/13/21 08:15 09/13/21 08:16 DC 09/13/21 08:36 Justifications for Admission Other Justification COVID-19 positive test (U07.1, COVID-19) with Acute Pneumonia (J12.89, Other viral pneumonia) (If respiratory failure or sepsis present, add as separate assessment) SHELLIE CAR MD Sep 13, 2021 13:35
[2021-09-13 14:58] VITALS: BP 108/84
[2021-09-13 19:00] VITALS: BP 109/64
[2021-09-13] MEDS: ATORVASTATIN CALCIUM 20 MG TABLET PO SCH (20:08)
[2021-09-13 23:23] VITALS: BP 110/66
[2021-09-14 02:55] VITALS: BP 112/70
[2021-09-14 07:00] VITALS: BP 112/63
[2021-09-14] MEDS: INSULIN LISPRO 300 UNITS/3 ML VIAL. SQ SCH ×3 (08:00→17:00)
[2021-09-14] MEDS: ASPIRIN CHEWABLE 81 MG TABLET. PO SCH (08:06)
[2021-09-14] MEDS: ZINC SULFATE 220 MG CAPSULE. PO SCH (08:06)
[2021-09-14] MEDS: THIAMINE 100 MG TABLET. PO SCH (08:06)
[2021-09-14] MEDS: NYSTATIN TOPICAL POWDER 15GM BOTTLE. TP SCH ×2 (08:07→20:35)
[2021-09-14] MEDS: PANTOPRAZOLE 40 MG TABLET.DR. PO SCH (08:07)
[2021-09-14] MEDS: ASCORBIC ACID 500 MG TABLET PO SCH (08:12)
[2021-09-14] MEDS: oxyCODONE/APAP 5/325 1 TAB TABLET PO PRN ×4 (08:12→23:04)
--- NOTE | 2021-09-14 09:12 | PDOC ---
Provider Note Date of Service: DATE: 09/14/21 TIME: 09:11 Provider Note Provider Note No acute events. Reports the pain is well controlled overall. Does report some pain in the amputation site on the right leg. Right lower extremity below-knee amputation incision with janet in place, no erythema or induration, no ecchymosis Left TMA site clean dry and intact with sutures in place, no erythema or induration or drainage, wound VAC in place to the left heel Plan for wound VAC change today to the left heel. Will review photos taken by the wound team. Will need outpatient VAC arranged as long as the wound continues to look viable as it did in the operating room on Saturday. Continue Rooke immobilizer to the right leg. Anna Lindsey DO Justicifation of Admission Dx: Justifications for Admission: Justification of Admission Dx: ANNA Cortes DO Sep 14, 2021 09:12
[2021-09-14 11:00] VITALS: BP 124/87
--- NOTE | 2021-09-14 12:00 | NUR ---
No insulin given per sliding scale. FSBS of 133.
--- NOTE | 2021-09-14 12:01 | PDOC ---
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 s/p bilateral pop/tibial thrombectomies with patch angioplasty s/p RLE hematoma evacuation Metabolic cephalopathy Probable Covid toes IVORY Lactic acidosis Dysphagia Malnutrition Heel erythema Poor nail care Severe malnutrition History of Present Illness History of Present Illness 09/14, doing well, tried to DC plan with [facility] and wound vac can try PO abx, 09/13, surg yesterday feels OK, diong better, trying to dc plan for soon 09/12 he is looking into finding a prosthetic on discharge, some amputation society, and he asked me about it doing well, 09/11 Evaluate examined at bedside. Apparently agreeable to amputations now and per report planning for tomorrow? Will at least order n.p.o. at midnight in case of that. Otherwise continue current. Patient pretty distressed when seen 09/10 Evaluate examined at bedside. He was asleep. Bed. Really no clinical changes. Still thinking about if he wants amputations. If no decision by tomorrow he will have to leave the hospital. 09/09 patient evaluated examined at bedside. Resting in bed mother at bedside. Patient said he had no complaints. Mother had multiple questions at bedside about why he needs another surgery. I explained to the best my ability for her and she was still seemed unsatisfied. Either way still no decision on amputations. Again if no decision by Saturday he will have to discharge. 09/08 Evaluated examined at bedside. In bed saying he still has not decided on surgical intervention. Seem to be more fixated on pain meds this morning. Social work note reviewed and agree with the plan if no decision by Saturday then discharging. 09/07 Patient evaluate examined at bedside. Resting in bed doing well. No major complaints. Said he is leaning toward surgical intervention but still thinking. 09/06 Patient evaluated examined at bedside. Resting in bed says pain is controlled. Trying to side still on surgical intervention involving BKA's. Hopeful for decision by tomorrow. 09/05 Patient evaluated examined at bedside. Thinking about if he is agreeable to further surgical intervention. Xarelto switched to Lovenox today in event he is. Continue current otherwise. 09/04/2021: Patient evaluated at bedside. Wound VAC to bilateral feet. Patient being rescreened for acute rehab. He has no complaints today; denies significant pain to bilateral feet. Encourage working with PT/OT. 09/03 Evaluated examined at bedside. Continue current with wound care therapy antibiotics. Discussed with bedside RN. 09/02 Evaluated examined at bedside. Pain controlled. Wound VAC still in place. Continue antibiotics. Therapy modalities 09/01/2021: Patient has no complaints today, reports minimal pain in his bilateral feet. Bilateral wound vacs are in place; he has been nonweightbearing and offloading his heels. He will work with physical therapy and Occupational Therapy today as much as tolerated. Discussed with RN. 08/31 Eval and examined at bedside. POD2. Pain well controlled. PT/OT. Vascular following. 08/30/2021: Patient seen and examined at bedside. POD #1, s/p partial amputation of right first through fifth digit, left TMA, bilateral heel debridement. He is resting in bed comfortably, but does report some residual bilateral feet pain that is controlled with medication. States he has been instructed to rest his heels and has not yet worked with PT/OT. Perhaps we can get him to do some exercises that the head of the bed today. Denies fever, nausea, or vomiting. 08/29 Evaluated examined at bedside. Some lower extremity pain. Eager for surgery today. Continue current plan. will follow-up with the patient again after surgery 08/28/2021: Afebrile. Patient denies chest pain or shortness of breath. He reports some left lower extremity pain that is controlled with medications. Reportedly has plans for surgical amputation of left toes tomorrow. 08/26/2021 No acute events overnight. Patient seen examined bedside. No complaints at this time. Pain is well controlled. Patient is ready for surgery on Friday 08/25: Seen bedside. Able to get up. Pain is well controlled. No chest pain or shortness of breath. Continue therapy modalities. Discussed with RN. 08/24: Seen bedside. Has been working with therapy feels is getting stronger. He tells me he thinks he is getting surgery tentatively on 08/29/2021 and will have "most of my toes cut off". 08/23: No acute events overnight. Patient seen and examined bedside. Plan for surgery with vascular surgery on August 29. Continue wound care for now. Osteomyelitis ruled out. Patient's chart, labs, images were reviewed and discussed with RN 08/22: No acute events overnight. Patient seen and examined bedside. Pending vascular surgery evaluation for possible toe amputations. Continue wound care for now. 08/21: Examined at bedside. Clinically stable. Rehab screen. Continue current plan otherwise. 08/20: Eval examined at bedside. No complaints, no distress. Rehab screen tomorrow. 08/19: Evaluated examined at bedside. Resting in bed did not appear in any distress. Continue therapy modalities 08/18: Evaluated examined at bedside. No major complaints. No distress. Screen for rehab on Saturday. 08/17: Evaluated examined at bedside. Resting in bed did not appear in any distress. Continue therapy for modalities 08/16: Patient seen and examined. He is resting with no apparent distress 08/15: Patient seen and examined. [place] removed yesterday, incision site looks good 08/14/2021 Patient seen and examined Discussed with RN Chart reviewed I called the vascular surgery nurse practitioner to see if they could take the janet out They said they would come later today to check on that (appreciate their help) 08/13/2019 Patient seen and examined He is up in the chair His nurse states he was able to walk to the bathroom twice His feet both still look necrotic Discussed with RN Chart reviewed 08/12/2021 Patient seen and examined Discussed with RN Chart reviewed Left foot still looks necrotic across the toes and the heel The right foot looks slightly better with slight healing of the heel but the toes are still quite necrotic 08/11/2021 Patient seen and examined Discussed with RN Chart reviewed Discussed with case management He took 8 steps yesterday 08/10/2021 Patient seen and examined exam discussed with case management Discussed with RN Chart reviewed No change clinically still wearing lower extremity protectors the toes are necrotic as are the heels 08/09: Seen sitting in chair today. He is wearing his postoperative shoes feels he is minimally stronger. Short of breath on exertion. 08/08: Seen and examined bedside. He is awaiting therapy evaluation today. Foot pain is well controlled. No worsening erythema or fevers but does have some drainage on the lateral left heel wound. No shortness of breath or chest pain. 08/04/2021 Patient seen and examined He is resting with no apparent distress Discussed with case management Chart reviewed Vascular surgery saw him again yesterday and is hoping to only have to do TMA in the future instead of BKA if we let his feett tissues try to recover for a few weeks Appreciate vascular input. 08/03/2021 Patient seen and examined Laying comfortably in bed with flat affect Bilateral heel protectors present; Dry gangrene present on bilateral toes and heels; Discussed with the wound care nurse Discussed with patient the need for vascular surgery input regarding foot surgery and potential bilateral BKA Chart reviewed Discussed with RN 08/02/2021 Patient seen and examined Discussed with RN Chart reviewed He is resting with no apparent distress 08/01/2021 Patient seen and examined He seems depressed and very weak He has heel protectors on both the toes that are exposed are extremely gangrenous and black and demarcated Discussed with the wound care nurse He explains that vascular surgery is awaiting the complete demarcation to finish up and then they will consider surgery at that time Chart reviewed Discussed with RN 07/31/2021 Patient seen and examined Discussed plan Chart reviewed Still feeling weak Mr Lambert is a 60-year-old male that presented 06/29/2021 via [facility] with decreased level of consciousness. Most of the history was obtained via EMS and patient's friend Reese [phone], who states that patient has been sick since about June 22 per Reese, he states that they both had cough cold headache sinus type pain. Per Reese's report patient is okay during the day and very alert and orientated and at night he has a decreased alertness. Patient is unable to help with exam when asked questions he does deny any past medical history, surgeries, or any other health conditions. Reese who is his roommate collaborates any information gotten from the patient. Accu-Chek per EMS was 250, room air sat in the room was 88 to 90%. 07/07: not much improved, about the same. cont current. PULM following. we have no clinimix, cont D5 fluid, 07/08: more alert, can try ST again, if able to sit up, still very weak 07/09: much more alert, bedside swallow of water ok, sits upright, much stronger, will try clears if able, ST to follow. toes are worsening, now black, hannah consult podiatry to follow, 07/10: More alert. Working with speech and swallowing today. Off O2. Less confused. Bilateral toe ulcers assessed by podiatry today. 07/11: More alert, eating. Arterial Doppler was left popliteal and severe distal disease bilaterally. Still has a little bit of a cough. Less confused today. 07/12: Eating reasonably well. Tentative plans for angiogram for consideration of limb salvage bilateral feet tomorrow. Discussed with cardiology. He will need significant follow-up care likely eventual amputations. 07/13: N.p.o. for angiogram today with bilateral SFA occlusive disease and left popliteal disease with left posterior tibial artery with some flow otherwise occlusive disease per cardiology. Discussed vascular surgery consultation for consideration of definitive revascularization with likely bilateral transmetatarsal amputations. Still with a little bit of a cough. Shortness of breath 07/14: Seen bedside. Having some pain in his bilateral extremities. Shortness of breath improved still with little bit of cough. Eating again. Amenable to revascularization and likely surgical debridement next week. Increasing thromboprophylaxis 07/15: Seen bedside. Not hypoxic. Cough is improving. He feels he is mental status is improved but he is definitely still mentating slowly. Complains of foot pain. He is contemplating surgical options but is okay with what ever the surgeons to choose for his likely lower extremity bypass tentatively planned for 07/17/202107/16: Bilateral foot pain still with cough but improving. Still is contemplating surgical options. 07/17: Patient off floor for surgery today. Chart evaluated. s/p bilateral pop/tibial thrombectomies with patch angioplasty. s/p RLE hematoma evacuation 07/18: Patient did and examined at bedside. He is postop day 1 from bilateral thrombectomies yesterday. Looks like he may need more surgery prior to discharge. Continue heparin drip. Suspect leukocytosis today secondary to surg danya. Continue current. 07/19: Patient evaluated examined at bedside. He was working with physical therapy when seen. Continuing heparin drip. Recheck CBC today. Cardiology following vascular following. Will likely need further surgery prior to dischar ge. 07/20: Seen at bedside. Having RLE pain and had Hgb drop overnight. Will transfuse. Stop heparin drip for now. Seen by vascular, hematoma evacuation ordered. serial Hgb. 1/28: Patient evaluated examined at bedside. Hemoglobin improved up to 8.1 to day. Underwent hematoma evacuation yesterday. Planning for further intervention next week. 07/22: Examine and evaluated at bedside. Resting in bed no major complaints. Hemoglobin stable. Appreciate Cardiology resuming heparin. Further intervention next week. 07/23: Seen at bedside no motor complaints. Hemoglobin still stable. No major clinical changes for today. Intervention this coming week. 07/24: Seen bedside. Has good appetite no cough shortness of breath or chest pain. Left heel with more gangrenous changes left feet. Plan for n.p.o. after midnight 07/25: Seen bedside. N.p.o. for bilateral foot debridement today. K3. Glucose low 100s. Has a friend visiting today. No chest pain or shortness of breath. Pain controlled. 2: Changes in the off heparin drip to Xarelto. No significant anticoagulation for 3 months then can start progressive ambulation with physical therapy with postop shoe per vascular surgery recommendations. No shortness of breath or chest pain today just very weak. 2/3: Up to chair today, has more bilateral foot pain, now wearing post -op shoes. No SOB or cough. He is asking to get back into bed. Encouraged to continue trying to get on his feet. 2: In bed. Foot pain is improved from yesterday. No shortness of breath no c ough. Still very weak even weak eating today. 07/29: Seen in bed. No foot pain today. No shortness of breath or cough. Still weak eating well. Not out of bed today. Glucose low 100s. 2: Seen in bed. Pain-free eating breakfast in bed. Still feeling weak has been up on his foot the last day. Glucose well controlled. Vitals/I&O Vitals/I&O: Vital Signs Date Time Temp Pulse Resp B/P (MAP) Pulse Ox O2 Delivery O2 Flow Rate FiO2 09/14/21 08:12 Room Air 09/14/21 07:00 97.9 79 20 112/63 (79) 94 97.9 I & O 09/13/21 09/13/21 09/14/21 15:00 23:00 07:00 Intake Total 250 ml 350 ml 150 ml Output Total 200 ml 200 ml Balance 250 ml 150 ml -50 ml Physical Exam Physical Exam: lethargic and weak General: Alert, Oriented X3 Heart: Regular rate Lungs: Clear Abdomen: Soft, No tenderness Extremities: Other (On examination of the left heel there is necrotic tissue within the deep fascia overlying the left calcaneus and the wound on the left heel probes to bone. The left toe amputation incisions are well healing.) Skin: Other (Rigth BKA dressing c/d/i with coban in place. No evidence of complication or hematoma. Left foot dressed with wound vac in place with good seal noted) Labs Labs: Laboratory Tests Test 09/13/21 12:04 09/13/21 17:13 09/13/21 19:43 Glucose (Fingerstick) 121 mg/dL (70-99) 115 mg/dL (70-99) 128 mg/dL (70-99) Assessment and Plan Assessmemt and Plan Problems Medical Problems: (1) Dehydration Status: Acute (2) Mental status alteration Status: Acute (3) Pneumonia Status: Acute Comment Review of Relevant I have reviewed the following items amanda (where applicable) has been applied. Justifications for Admission Other Justification COVID-19 positive test (U07.1, COVID-19) with Acute Pneumonia (J12.89, Other viral pneumonia) (If respiratory failure or sepsis present, add as separate assessment) SHELLIE CAR MD Sep 14, 2021 12:01
[2021-09-14 15:00] VITALS: BP 112/68
[2021-09-14] MEDS: METOPROLOL TART IMMED RELEASE 25 MG TABLET. PO SCH ×2 (15:00→20:35)
[2021-09-14] MEDS: ENOXAPARIN 40 MG/0.4 ML SYRINGE. SQ SCH (17:04)
[2021-09-14 19:00] VITALS: BP 119/69
[2021-09-14] MEDS: ATORVASTATIN CALCIUM 20 MG TABLET PO SCH (20:34)
[2021-09-14 23:11] VITALS: BP 127/75
[2021-09-15 03:09] VITALS: BP 120/77
[2021-09-15 07:00] VITALS: BP 108/77
[2021-09-15] MEDS: INSULIN LISPRO 300 UNITS/3 ML VIAL. SQ SCH ×3 (08:00→17:00)
[2021-09-15] MEDS: METOPROLOL TART IMMED RELEASE 25 MG TABLET. PO SCH ×2 (08:17→21:43)
[2021-09-15] MEDS: ZINC SULFATE 220 MG CAPSULE. PO SCH (08:17)
[2021-09-15] MEDS: oxyCODONE/APAP 5/325 1 TAB TABLET PO PRN ×3 (08:17→21:44)
[2021-09-15] MEDS: PANTOPRAZOLE 40 MG TABLET.DR. PO SCH (08:18)
[2021-09-15] MEDS: NYSTATIN TOPICAL POWDER 15GM BOTTLE. TP SCH ×3 (08:18→21:00)
[2021-09-15] MEDS: ASCORBIC ACID 500 MG TABLET PO SCH (08:18)
[2021-09-15] MEDS: THIAMINE 100 MG TABLET. PO SCH (08:18)
[2021-09-15] MEDS: ASPIRIN CHEWABLE 81 MG TABLET. PO SCH (08:18)
[2021-09-15 11:00] VITALS: BP 116/78
[2021-09-15] MEDS ORDERED: AMOXICILLIN/K CLAV 875/125MG TABLET. PO ONE (11:00)
[2021-09-15 12:28] LABS: BASO # 0.1 x10^3/uL (0.0-0.2); BASO % 1 % (0-3); EOS # 0.2 x10^3/uL (0.0-0.7); EOS % 2 % (0-3); HEMATOCRIT 39.4 % (39.0-53.0); HEMOGLOBIN 12.3 g/dL (13.0-17.5); LYMPH # 2.3 x10^3/uL (1.0-4.8); LYMPH % 21 % (24-48); MEAN CORPUSCULAR HEMOGLOBIN 28 pg (25-35); MEAN CORPUSCULAR HGB CONC 31 g/dL (31-37); MEAN CORPUSCULAR VOLUME 90 fL (79-100); MONO # 0.8 x10^3/uL (0.0-1.1); MONO % 8 % (0-9); NEUT # 7.5 x10^3/uL (1.8-7.7); NEUT % 68 % (31-73); PLATELET COUNT 371 x10^3/uL (140-400); RED BLOOD COUNT 4.36 x10^6/uL (4.30-5.70); RED CELL DISTRIBUTION WIDTH 16.1 % (11.5-14.5)
[2021-09-15 12:46] LABS: ALBUMIN 3.2 g/dL (3.4-5.0); ALBUMIN/GLOBULIN RATIO 0.8 (1.0-1.7); CALCIUM 9.4 mg/dL (8.5-10.1); CREATININE 0.8 mg/dL (0.7-1.3); TOTAL BILIRUBIN 0.3 mg/dL (0.2-1.0); TOTAL PROTEIN 7.4 g/dL (6.4-8.2)
--- NOTE | 2021-09-15 13:30 | NUR ---
MYLENE following. Discussed with RN, MYLENE met with pt, pt's mother and pt's roommate with [facility] from [facility]. Pt will be provided with a wheelchair upon discharge (Saturday). Pt needs to come to outpatient for wound vac changes once a week and then [facility] would come to their home once a week. Pt has to commit to coming to outpatient once a week or he cannot have a wound vac AND cannot have home health as the wound doctors will be providing orders for the home health. Pt's roommate, Don expressed concern about the stairs in their home stating it isn't wheelchair accessible. MYLENE and Irving explained that unfortunately pt does not need to be in the hospital anymore and his only option is home. MYLENE explained that this discussion was had prior to the leg amputation so should not be a surprise. Pt stating he thought he would be here until he had healed. Pt again seemed most concerned about getting his pain medications upon discharge. Family aware they have the weekend to come up with a a plan of getting to a from outpatient once a week and getting the house ready for pt to come home. Revisit on Saturday. MYLENE will continue to follow.
[2021-09-15 15:00] VITALS: BP 114/75
[2021-09-15] MEDS: ENOXAPARIN 40 MG/0.4 ML SYRINGE. SQ SCH (15:04)
--- NOTE | 2021-09-15 15:05 | PDOC ---
Provider Note Date of Service: DATE: 09/15/21 TIME: 14:58 Provider Note Provider Note Vascular S; No acute events overnight. Plans for discharge on Saturday, with plans for wound vac changes to left heel 2xweek. O: Awake and alert VSS, afebrile Rooke boot protector in place right BKA, left foot protective boot in place. A/P: s/p Right lower extremity below-knee amputation. Left TMA and wound VAC in place to the left heel Recommend wound vac to left heel if arrangements can be made, otherwise aquacel ag to wound. TMA and BKA may be open to air Right BKA rooke boot needs to remain in place during all transfers All the above discussed with patient and his friend. He will need to follow up for suture removal left tma as scheduled. Justicifation of Admission Dx: Justifications for Admission: Justification of Admission Dx: FAITH Merino APRN Sep 15, 2021 15:05
--- NOTE | 2021-09-15 15:56 | NUR ---
Wound/Ostomy Care Wound Type/Assessment: Wound care follow up for vac dressing change on left heel, RLE s/p BKA. Cleansed, pictured, measured and redressed wound. Pt RN said pt has coccyx wound that is maceration and she just redressed it and pt preferred we not undress it at this time. Treatment Recommendations/Plan: NPWT- black foam 125 mmHg continuous pressure, Change Saturday and Saturday Education provided: WC POC and PU prevention Offloading surface/device: TQ2H, heel medix boot Recommended Referrals/Tests: na Discharge Recommendations for dressings: see above
--- NOTE | 2021-09-15 16:46 | PDOC ---
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 s/p bilateral pop/tibial thrombectomies with patch angioplasty s/p RLE hematoma evacuation Metabolic cephalopathy Probable Covid toes IVORY Lactic acidosis Dysphagia Malnutrition Heel erythema Poor nail care Severe malnutrition History of Present Illness History of Present Illness 09/15, doing well, tried to DC plan with critical access hospital and wound vac can try PO abx, Vitals/I&O Vitals/I&O: Vital Signs Date Time Temp Pulse Resp B/P (MAP) Pulse Ox O2 Delivery O2 Flow Rate FiO2 09/15/21 15:00 98.5 78 18 114/75 (88) 98 Room Air 98.5 09/15/21 08:49 2.0 I & O 09/14/21 09/14/21 09/15/21 15:00 23:00 07:00 Intake Total 0 ml 120 ml Output Total 600 ml Balance 0 ml -480 ml Physical Exam Physical Exam: lethargic and weak General: Alert, Oriented X3 Heart: Regular rate Lungs: Clear Abdomen: Soft, No tenderness Extremities: Other (On examination of the left heel there is necrotic tissue within the deep fascia overlying the left calcaneus and the wound on the left heel probes to bone. The left toe amputation incisions are well healing.) Skin: Other (Rigth BKA dressing c/d/i with coban in place. No evidence of complication or hematoma. Left foot dressed with wound vac in place with good seal noted) Labs Labs: Laboratory Tests Test 09/15/21 08:00 09/15/21 12:00 09/15/21 12:44 Glucose (Fingerstick) 118 mg/dL (70-99) 126 mg/dL (70-99) White Blood Count 11.0 x10^3/uL (4.0-11.0) Red Blood Count 4.36 x10^6/uL (4.30-5.70) Hemoglobin 12.3 g/dL (13.0-17.5) Hematocrit 39.4 % (39.0-53.0) Mean Corpuscular Volume 90 fL (79-100) Mean Corpuscular Hemoglobin 28 pg (25-35) Mean Corpuscular Hemoglobin Concent 31 g/dL (31-37) Red Cell Distribution Width 16.1 % (11.5-14.5) Platelet Count 371 x10^3/uL (140-400) Neutrophils (%) (Auto) 68 % (31-73) Lymphocytes (%) (Auto) 21 % (24-48) Monocytes (%) (Auto) 8 % (0-9) Eosinophils (%) (Auto) 2 % (0-3) Basophils (%) (Auto) 1 % (0-3) Neutrophils # (Auto) 7.5 x10^3/uL (1.8-7.7) Lymphocytes # (Auto) 2.3 x10^3/uL (1.0-4.8) Monocytes # (Auto) 0.8 x10^3/uL (0.0-1.1) Eosinophils # (Auto) 0.2 x10^3/uL (0.0-0.7) Basophils # (Auto) 0.1 x10^3/uL (0.0-0.2) Sodium Level 139 mmol/L (136-145) Potassium Level 4.0 mmol/L (3.5-5.1) Chloride Level 103 mmol/L (98-107) Carbon Dioxide Level 27 mmol/L (21-32) Anion Gap 9 (6-14) Blood Urea Nitrogen 14 mg/dL (8-26) Creatinine 0.8 mg/dL (0.7-1.3) Estimated GFR (Cockcroft-Gault) 98.0 BUN/Creatinine Ratio 18 (6-20) Glucose Level 146 mg/dL (70-99) Calcium Level 9.4 mg/dL (8.5-10.1) Total Bilirubin 0.3 mg/dL (0.2-1.0) Aspartate Amino Transf (AST/SGOT) 15 U/L (15-37) Alanine Aminotransferase (ALT/SGPT) 11 U/L (16-63) Alkaline Phosphatase 54 U/L (46-116) Total Protein 7.4 g/dL (6.4-8.2) Albumin 3.2 g/dL (3.4-5.0) Albumin/Globulin Ratio 0.8 (1.0-1.7) Assessment and Plan Assessmemt and Plan Problems Medical Problems: (1) Dehydration Status: Acute (2) Mental status alteration Status: Acute (3) Pneumonia Status: Acute Comment Review of Relevant I have reviewed the following items amanda (where applicable) has been applied. Medications: Current Medications Medications (Trade) Dose Ordered Sig/Vicente Route PRN Reason Start Time Stop Time Status Last Admin Dose Admin Amoxicillin/ Clavulanate Potassium (Augmentin 875/ 125mg) 1 tab 1X ONCE PO 09/15/21 11:00 09/15/21 11:10 DC 09/15/21 12:57 Justifications for Admission Other Justification COVID-19 positive test (U07.1, COVID-19) with Acute Pneumonia (J12.89, Other viral pneumonia) (If respiratory failure or sepsis present, add as separate assessment) SHELLIE CAR MD Sep 15, 2021 16:46
[2021-09-15 19:20] VITALS: BP 119/64
[2021-09-15] MEDS: AMOXICILLIN/K CLAV 875/125MG TABLET. PO SCH (21:43)
[2021-09-15] MEDS: ATORVASTATIN CALCIUM 20 MG TABLET PO SCH (21:43)
[2021-09-15 23:10] VITALS: BP 114/66
[2021-09-16 03:12] VITALS: BP 112/76
[2021-09-16 07:00] VITALS: BP 123/76
[2021-09-16] MEDS: INSULIN LISPRO 300 UNITS/3 ML VIAL. SQ SCH ×3 (08:00→17:00)
[2021-09-16] MEDS: AMOXICILLIN/K CLAV 875/125MG TABLET. PO SCH ×2 (08:36→20:34)
[2021-09-16] MEDS: PANTOPRAZOLE 40 MG TABLET.DR. PO SCH (08:36)
[2021-09-16] MEDS: METOPROLOL TART IMMED RELEASE 25 MG TABLET. PO SCH ×2 (08:36→20:33)
[2021-09-16] MEDS: ZINC SULFATE 220 MG CAPSULE. PO SCH (08:36)
[2021-09-16] MEDS: ASCORBIC ACID 500 MG TABLET PO SCH (08:36)
[2021-09-16] MEDS: THIAMINE 100 MG TABLET. PO SCH (08:36)
[2021-09-16] MEDS: ASPIRIN CHEWABLE 81 MG TABLET. PO SCH (08:36)
[2021-09-16] MEDS: NYSTATIN TOPICAL POWDER 15GM BOTTLE. TP SCH ×2 (08:37→20:36)
[2021-09-16 11:00] VITALS: BP 121/79
--- NOTE | 2021-09-16 12:25 | PDOC ---
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 s/p bilateral pop/tibial thrombectomies with patch angioplasty s/p RLE hematoma evacuation Metabolic cephalopathy Probable Covid toes IVORY Lactic acidosis Dysphagia Malnutrition Heel erythema Poor nail care Severe malnutrition History of Present Illness History of Present Illness 09/16, doing well, DC plan soon will need home health and wound vac on PO abx, exposed bone Vitals/I&O Vitals/I&O: Vital Signs Date Time Temp Pulse Resp B/P (MAP) Pulse Ox O2 Delivery O2 Flow Rate FiO2 09/16/21 11:00 97.3 95 18 121/79 (93) 95 Room Air 97.3 09/15/21 18:36 2.0 I & O 09/15/21 09/15/21 09/16/21 15:00 23:00 07:00 Intake Total 480 ml Output Total 600 ml 300 ml Balance -600 ml 180 ml Physical Exam Physical Exam: lethargic and weak General: Alert, Oriented X3 Heart: Regular rate Lungs: Clear Abdomen: Soft, No tenderness Extremities: Other (On examination of the left heel there is necrotic tissue within the deep fascia overlying the left calcaneus and the wound on the left heel probes to bone. The left toe amputation incisions are well healing.) Skin: Other (Rigth BKA dressing c/d/i with coban in place. No evidence of complication or hematoma. Left foot dressed with wound vac in place with good seal noted) Labs Labs: Laboratory Tests Test 09/15/21 12:44 09/15/21 17:26 09/15/21 20:57 09/16/21 07:25 Glucose (Fingerstick) 126 mg/dL (70-99) 128 mg/dL (70-99) 123 mg/dL (70-99) 106 mg/dL (70-99) Test 09/16/21 11:44 Glucose (Fingerstick) 137 mg/dL (70-99) Assessment and Plan Assessmemt and Plan Problems Medical Problems: (1) Dehydration Status: Acute (2) Mental status alteration Status: Acute (3) Pneumonia Status: Acute Comment Review of Relevant I have reviewed the following items amanda (where applicable) has been applied. Medications: Current Medications Medications (Trade) Dose Ordered Sig/Vicente Route PRN Reason Start Time Stop Time Status Last Admin Dose Admin Amoxicillin/ Clavulanate Potassium (Augmentin 875/ 125mg) 1 tab BID PO 09/15/21 21:00 09/16/21 08:36 Justifications for Admission Other Justification COVID-19 positive test (U07.1, COVID-19) with Acute Pneumonia (J12.89, Other viral pneumonia) (If respiratory failure or sepsis present, add as separate assessment) SHELLIE CAR MD Sep 16, 2021 12:25
[2021-09-16 15:00] VITALS: BP 126/65
[2021-09-16] MEDS: ENOXAPARIN 40 MG/0.4 ML SYRINGE. SQ SCH (15:35)
[2021-09-16] MEDS: oxyCODONE/APAP 5/325 1 TAB TABLET PO PRN ×2 (15:37→20:34)
[2021-09-16 19:00] VITALS: BP 105/76
[2021-09-16] MEDS: LACTOBACILLUS RHAMNOSUS GG 1 CAPSULE. PO SCH (20:34)
[2021-09-16] MEDS: ATORVASTATIN CALCIUM 20 MG TABLET PO SCH (20:34)
[2021-09-16 23:00] VITALS: BP 104/65
[2021-09-17 03:00] VITALS: BP 110/66
[2021-09-17 07:00] VITALS: BP 123/67
[2021-09-17] MEDS: INSULIN LISPRO 300 UNITS/3 ML VIAL. SQ SCH ×3 (08:00→17:00)
[2021-09-17] MEDS: AMOXICILLIN/K CLAV 875/125MG TABLET. PO SCH ×2 (08:46→20:51)
[2021-09-17] MEDS: ASCORBIC ACID 500 MG TABLET PO SCH (08:46)
[2021-09-17] MEDS: THIAMINE 100 MG TABLET. PO SCH (08:46)
[2021-09-17] MEDS: ASPIRIN CHEWABLE 81 MG TABLET. PO SCH (08:46)
[2021-09-17] MEDS: METOPROLOL TART IMMED RELEASE 25 MG TABLET. PO SCH ×2 (08:46→20:52)
[2021-09-17] MEDS: NYSTATIN TOPICAL POWDER 15GM BOTTLE. TP SCH ×2 (08:47→21:00)
[2021-09-17] MEDS: PANTOPRAZOLE 40 MG TABLET.DR. PO SCH (08:47)
[2021-09-17] MEDS: LACTOBACILLUS RHAMNOSUS GG 1 CAPSULE. PO SCH ×2 (08:47→20:51)
[2021-09-17] MEDS: ZINC SULFATE 220 MG CAPSULE. PO SCH (08:47)
[2021-09-17 10:37] VITALS: BP 117/76
[2021-09-17] MEDS ORDERED: ONDANSETRON ODT 4 MG TAB.RAPDIS. PO PRN (11:30)
--- NOTE | 2021-09-17 13:16 | PDOC ---
[employer] PROGRESS NOTE Date of Service DOS: DATE: 09/17/21 TIME: 13:15 Chief Complaint Chief Complaint Resolved Covid-19 Subacute thrombotic occlusion of the bilateral popliteal and proximal tibial vessels. s/p bilateral pop/tibial thrombectomies with patch angioplasty s/p RLE hematoma evacuation Metabolic cephalopathy Probable Covid toes IVORY Lactic acidosis Dysphagia Malnutrition Heel erythema Poor nail care Severe malnutrition History of Present Illness History of Present Illness 09/17, nausea today, add zosyn, may need PPI cont current DC plan soon wound vac will need long course PO abx at DC for exposed bone wound 09/16, doing well, DC plan soon will need home health and wound vac on PO abx, exposed bone Vitals/I&O Vitals/I&O: Vital Signs Date Time Temp Pulse Resp B/P (MAP) Pulse Ox O2 Delivery O2 Flow Rate FiO2 09/17/21 10:37 98.0 94 16 117/76 (90) Room Air 95.0 98.0 09/17/21 07:00 95 I & O 09/16/21 09/16/21 09/17/21 15:00 23:00 07:00 Intake Total 400 ml 200 ml Output Total 300 ml 200 ml Balance -300 ml 200 ml 200 ml Physical Exam Physical Exam: lethargic and weak General: Alert, Oriented X3 Heart: Regular rate Lungs: Clear Abdomen: Soft, No tenderness Extremities: Other (On examination of the left heel there is necrotic tissue within the deep fascia overlying the left calcaneus and the wound on the left heel probes to bone. The left toe amputation incisions are well healing.) Skin: Other (Rigth BKA dressing c/d/i with coban in place. No evidence of complication or hematoma. Left foot dressed with wound vac in place with good seal noted) Labs Labs: Laboratory Tests Test 09/16/21 16:41 09/16/21 20:27 09/17/21 07:12 09/17/21 11:37 Glucose (Fingerstick) 129 mg/dL (70-99) 130 mg/dL (70-99) 106 mg/dL (70-99) 123 mg/dL (70-99) Assessment and Plan Assessmemt and Plan Problems Medical Problems: (1) Dehydration Status: Acute (2) Mental status alteration Status: Acute (3) Pneumonia Status: Acute Comment Review of Relevant I have reviewed the following items amanda (where applicable) has been applied. Medications: Current Medications Medications (Trade) Dose Ordered Sig/Vicente Route PRN Reason Start Time Stop Time Status Last Admin Dose Admin Lactobacillus Rhamnosus (Culturelle) 1 cap BID PO 09/16/21 21:00 09/17/21 08:47 Ondansetron HCl (Zofran Odt) 4 mg PRN Q6HRS PRN PO NAUSEA/VOMITING 09/17/21 11:30 09/17/21 11:35 Justifications for Admission Other Justification COVID-19 positive test (U07.1, COVID-19) with Acute Pneumonia (J12.89, Other viral pneumonia) (If respiratory failure or sepsis present, add as separate assessment) SHELLIE CAR MD Sep 17, 2021 13:16
[2021-09-17 15:25] VITALS: BP 112/75
[2021-09-17] MEDS: ENOXAPARIN 40 MG/0.4 ML SYRINGE. SQ SCH (15:31)
[2021-09-17] MEDS: oxyCODONE/APAP 5/325 1 TAB TABLET PO PRN (17:54)
[2021-09-17 19:00] VITALS: BP 124/85
[2021-09-17] MEDS: ATORVASTATIN CALCIUM 20 MG TABLET PO SCH (20:51)
[2021-09-17 23:17] VITALS: BP 100/65
[2021-09-18 02:48] VITALS: BP 121/68
[2021-09-18 07:00] VITALS: BP 114/79
[2021-09-18] MEDS: NYSTATIN TOPICAL POWDER 15GM BOTTLE. TP SCH ×2 (07:58→21:00)
[2021-09-18] MEDS: INSULIN LISPRO 300 UNITS/3 ML VIAL. SQ SCH ×3 (08:00→17:00)
[2021-09-18] MEDS: AMOXICILLIN/K CLAV 875/125MG TABLET. PO SCH ×2 (08:05→21:28)
[2021-09-18] MEDS: METOPROLOL TART IMMED RELEASE 25 MG TABLET. PO SCH ×2 (08:05→21:28)
[2021-09-18] MEDS: THIAMINE 100 MG TABLET. PO SCH (08:05)
[2021-09-18] MEDS: ZINC SULFATE 220 MG CAPSULE. PO SCH (08:05)
[2021-09-18] MEDS: ASPIRIN CHEWABLE 81 MG TABLET. PO SCH (08:05)
[2021-09-18] MEDS: PANTOPRAZOLE 40 MG TABLET.DR. PO SCH (08:05)
[2021-09-18] MEDS: LACTOBACILLUS RHAMNOSUS GG 1 CAPSULE. PO SCH ×2 (08:05→21:28)
[2021-09-18] MEDS: ASCORBIC ACID 500 MG TABLET PO SCH (08:05)
--- NOTE | 2021-09-18 09:07 | PATHOLOGY ---
[facility] Accession Number: [id number] . 01 Material submitted: . leg - RT BELOW KNEE AMPUTATION. Modifiers: right . 01 Clinical history: . RT BELOW KNEE AMPUTATION RIGHT FOOT . 02 Diagnosis: Right below knee amputation: - Ulceration and acute inflammation of heel with acute cellulitis and focal acute osteomyelitis of underlying bone. - Non-occlusive sclerosis of anterior and posterior tibial arteries. - Status post toe amputations. - Focal fat necrosis, myonecrosis, chronic inflammation and skeletal muscle atrophy of soft tissues of leg. - Benign keratosis of skin of leg. - Recent hemorrhage within stratum corneum of skin of leg, focal. (JPM:zaynab; 09/15/2021) [facility] 09/18/2021 0836 Local . 02 Electronically signed: . Tyrone Love MD, Pathologist NPI- [id number] . 01 Gross description: . The specimen is received fresh, labeled "Darrius Whelan, right below knee amputation (right foot)". Received is a right below the knee amputation specimen, measuring 19.9 cm from heel to posterior skin and soft tissue margin, 21.6 cm from heel to anterior skin and soft tissue margin, 22.4 cm from heel to tip of longest toe (second toe), 8.4 cm from medial to lateral, with 2.1 cm of exposed fibula and 1.4 cm of exposed tibia. The bony margin appears figueroa-white, firm and flat. The skin and soft tissue margin appears figueroa-pink to red, and viable. Portions of all 5 toes are previously amputated. In place of the distal ends are dry, crusted, linear wounds with multiple black sutures. . The heel displays a 4.5 x 3.2 cm, vaguely circular, well demarcated, extensively eroded, figueroa pink to green, variegated, necrotic appearing, purulent and centrally softened ulcer, located 16.9 cm from the closest posterior skin and soft tissue margin. The skin surrounding the ulcer appears pale and unremarkable. . The remaining skin displays 3 dark purple, flat lesions. The first lesion is round, measures 0.3 x 0.3 cm and is located over the medial malleolus, 6.8 cm from the ulcer. The second lesion is irregularly shaped, well demarcated, measures 0.4 x 0.3 cm, and is located in the medial aspect of the leg, 4.2 cm from the closest posterior skin and soft tissue margin. The third skin lesion is irregularly shaped, well demarcated, measures 1.8 x 0.9 cm, and is located over the anterior aspect of the ankle joint, 11.8 cm from the ulcer. The remaining uninvolved skin appears figueroa-pink, flaky and unremarkable. . Sectioning reveals the bone underlying the ulcer to be figueroa-moctezuma, dusky and focally softened. Sectioning through the vasculature reveals minimal evidence of arteriosclerosis. Photographs are obtained billing customer service representative sections are submitted as follows, following decalcification: . A1: Darlene margin bone marrow A2: Vascular margin, en face (posterior tibialis= black ink, anterior tibialis = no ink) A3: Skin and soft tissue margin, represented A4: Ulcer, represented A5: Bone underlying ulcer A6: Anterior tibialis, represented A7: Posterior tibialis, represented A8: Lesion 1, bisected A9: Lesion 2, bisected A10: Lesion 3, trisected (JGG; 09/13/2021) [facility] 09/13/2021 1930 Local . 02 Pathologist provided ICD-10: M86.161, L03.115, L98.499, M79.89, L57.0 . 02 CPT . 327397, 389389 Specimen Comment: A courtesy copy of this report has been sent to [phone], [phone] Specimen Comment: [id number] Specimen Comment: Report sent to / DR ARGUELLO Performed at: [address] [place] [address] [address], [place], [place] [id number] MD Lai Osman MD Phone: [phone] Performed at: 02 [facility] [address] [place], [place] [id number] MD Tyrone Love MD Phone: [phone]
--- NOTE | 2021-09-18 10:22 | PDOC ---
Provider Note Date of Service: DATE: 09/18/21 TIME: 10:17 Provider Note Provider Note Vascular S; No acute events overnight. Plans for discharge on today, with plans for wound vac changes to left heel 2xweek. O: Awake and alert VSS, afebrile Rooke boot protector in place right BKA, incision inspected, dry and intact, left foot protective boot in place, tma incision is dry and intact, heel wound bed clean, some granulation tissue. A/P: s/p Right lower extremity below-knee amputation. Left TMA and wound VAC in place to the left heel Recommend wound vac to left heel if arrangements can be made, otherwise aquacel ag to wound. TMA and BKA may be open to air Right BKA rooke boot needs to remain in place during all transfers, heel protector left foot at all times. All the above discussed with patient and his friend. He will need to follow up for suture removal left tma as scheduled. Justicifation of Admission Dx: Justifications for Admission: Justification of Admission Dx: FAITH Merino APRN Sep 18, 2021 10:22
[2021-09-18 11:00] VITALS: BP 103/70
--- NOTE | 2021-09-18 13:20 | NUR ---
SW following. Met with both pt and roommate in room. Pt aware of his planned discharge to home. He is working with his roommate and his family on how best to accomplish this. Currently his home needs to be cleaned/reorganized to allow for him to stay on the bottom level as he is unable to negotiate satires. We did get him a wheel chair for home use, however are still awaiting for it to be delivered. His plan is to go home with the wound vac and then follow up out pt with wound care and have a visit once per week with HH. After speaking in depth with pt and his roommate we will wait until tomorrow for dc to allow them to better prepare the home and get the needed assistance. Transport will tentatively be set up for 1300 by our w/c van. Pt and roommate aware and agreeable to plans.
[2021-09-18] MEDS: ENOXAPARIN 40 MG/0.4 ML SYRINGE. SQ SCH (13:56)
--- NOTE | 2021-09-18 14:38 | PDOC ---
[employer] [facility] PROGRESS NOTE Date of Service DOS: DATE: 09/18/21 TIME: 14:35 Chief Complaint Chief Complaint Resolved Covid-19 Subacute thrombotic occlusion of the bilateral popliteal and proximal tibial vessels. s/p bilateral pop/tibial thrombectomies with patch angioplasty s/p RLE hematoma evacuation s/p Right BKA Metabolic cephalopathy Probable Covid toes IVORY Lactic acidosis Dysphagia Malnutrition Heel erythema Poor nail care Severe malnutrition History of Present Illness History of Present Illness 09/18: Patient seen and evaluated, s/p right BKA and excisional debridement of left heel. Afebrile. He has no complaints this morning. Friend is visiting in room at time of my evaluation. Wound VAC to left foot. Plan is for patient to discharge tomorrow home with home health and follow-up for outpatient PT. 09/17, nausea today, add zosyn, may need PPI cont current DC plan soon wound vac will need long course PO abx at DC for exposed bone wound 09/16, doing well, DC plan soon will need home health and wound vac on PO abx, exposed bone Vitals/I&O Vitals/I&O: Vital Signs Date Time Temp Pulse Resp B/P (MAP) Pulse Ox O2 Delivery O2 Flow Rate FiO2 09/18/21 11:00 97.4 91 18 103/70 (81) 93 Room Air 97.4 09/17/21 10:37 95.0 I & O 09/17/21 09/17/21 09/18/21 15:00 23:00 07:00 Intake Total 200 ml 100 ml 100 ml Output Total 500 ml 200 ml Balance 200 ml -400 ml -100 ml Physical Exam Physical Exam: lethargic and weak General: Alert, Oriented X3 Heart: Regular rate Lungs: Clear Abdomen: Soft, No tenderness Extremities: Other (On examination of the left heel there is necrotic tissue within the deep fascia overlying the left calcaneus and the wound on the left heel probes to bone. The left toe amputation incisions are well healing.) Skin: Other (Rigth BKA dressing c/d/i with coban in place. No evidence of complication or hematoma. Left foot dressed with wound vac in place with good seal noted) Labs Labs: Laboratory Tests Test 09/17/21 17:06 09/18/21 07:20 09/18/21 11:56 Glucose (Fingerstick) 125 mg/dL (70-99) 109 mg/dL (70-99) 133 mg/dL (70-99) Assessment and Plan Assessmemt and Plan Problems Medical Problems: (1) Dehydration Status: Acute (2) Mental status alteration Status: Acute (3) Pneumonia Status: Acute Comment Review of Relevant I have reviewed the following items amanda (where applicable) has been applied. Justifications for Admission Other Justification COVID-19 positive test (U07.1, COVID-19) with Acute Pneumonia (J12.89, Other viral pneumonia) (If respiratory failure or sepsis present, add as separate assessment) TIFFANY HERNANDEZ MD Sep 18, 2021 14:38
[2021-09-18 15:00] VITALS: BP 105/74
--- NOTE | 2021-09-18 16:01 | NUR ---
Wound/Ostomy Care Wound Type/Assessment: Wound care follow up for vac dressing change on left heel, RLE s/p BKA. Wound on left heel cleansed, assessed, measured, and pictured. Patient to discharge tomorrow. Patient has been approved for a [facility] wound vac. [place] to see one day a week and we will see patient in the outpatient department. Treatment Recommendations/Plan: NPWT- black foam 125 mmHg continuous pressure to left heel, Change Saturday and or Tuesdays and Fridays depending on HH. Dry gauze to TMA suture site, cleansed with chloraprep well approximated sutures intact, wrapped with kerlix. Education provided: Patient educated on wound care and POC and Home wound vac, Offloading surface/device: TQ2H, heel medix boot Recommended Referrals/Tests: Patient to follow up in outpatient department and with [place] CATALAN. Discharge Recommendations for dressings: Continue current treatment. Bed lowered and call light in reach.
[2021-09-18] MEDS: oxyCODONE/APAP 5/325 1 TAB TABLET PO PRN ×2 (16:13→21:31)
[2021-09-18 19:00] VITALS: BP 111/78
[2021-09-18] MEDS: ATORVASTATIN CALCIUM 20 MG TABLET PO SCH (21:28)
[2021-09-18 23:00] VITALS: BP 131/85
[2021-09-19 03:00] VITALS: BP 116/67
[2021-09-19 07:00] VITALS: BP 120/67
[2021-09-19] MEDS: INSULIN LISPRO 300 UNITS/3 ML VIAL. SQ SCH (08:00)
[2021-09-19] MEDS: THIAMINE 100 MG TABLET. PO SCH (08:51)
[2021-09-19] MEDS: AMOXICILLIN/K CLAV 875/125MG TABLET. PO SCH (08:51)
[2021-09-19] MEDS: ZINC SULFATE 220 MG CAPSULE. PO SCH (08:51)
[2021-09-19] MEDS: PANTOPRAZOLE 40 MG TABLET.DR. PO SCH (08:52)
[2021-09-19] MEDS: ASCORBIC ACID 500 MG TABLET PO SCH (08:52)
[2021-09-19] MEDS: LACTOBACILLUS RHAMNOSUS GG 1 CAPSULE. PO SCH (08:52)
[2021-09-19] MEDS: ASPIRIN CHEWABLE 81 MG TABLET. PO SCH (08:52)
[2021-09-19] MEDS: METOPROLOL TART IMMED RELEASE 25 MG TABLET. PO SCH (08:53)
[2021-09-19] MEDS: NYSTATIN TOPICAL POWDER 15GM BOTTLE. TP SCH (08:55)
--- NOTE | 2021-09-19 10:57 | PDOC ---
[employer] [facility] PROGRESS NOTE Date of Service DOS: DATE: 09/19/21 TIME: 10:56 Chief Complaint Chief Complaint Resolved Covid-19 Subacute thrombotic occlusion of the bilateral popliteal and proximal tibial vessels. s/p bilateral pop/tibial thrombectomies with patch angioplasty s/p RLE hematoma evacuation s/p Right BKA Metabolic cephalopathy Probable Covid toes IVORY Lactic acidosis Dysphagia Malnutrition Heel erythema Poor nail care Severe malnutrition History of Present Illness History of Present Illness 09/19/2021 Patient seen and examined Discussed with case management Discussed with RN Chart reviewed He is leaving at 1:00 today with home health 09/18: Patient seen and evaluated, s/p right BKA and excisional debridement of left heel. Afebrile. He has no complaints this morning. Friend is visiting in room at time of my evaluation. Wound VAC to left foot. Plan is for patient to discharge tomorrow home with home health and follow-up for outpatient PT. 09/17, nausea today, add zosyn, may need PPI cont current DC plan soon wound vac will need long course PO abx at DC for exposed bone wound 09/16, doing well, DC plan soon will need home health and wound vac on PO abx, exposed bone Vitals/I&O Vitals/I&O: Vital Signs Date Time Temp Pulse Resp B/P (MAP) Pulse Ox O2 Delivery O2 Flow Rate FiO2 09/19/21 08:53 83 120/67 09/19/21 07:00 98.4 16 94 Room Air 98.4 I & O 09/18/21 09/18/21 09/19/21 15:00 23:00 07:00 Intake Total 520 ml 240 ml 0 ml Output Total 1400 ml Balance 520 ml -1160 ml 0 ml Physical Exam Physical Exam: lethargic and weak General: Alert, Oriented X3 Heart: Regular rate Lungs: Clear Abdomen: Soft, No tenderness Extremities: Other (On examination of the left heel there is necrotic tissue within the deep fascia overlying the left calcaneus and the wound on the left heel probes to bone. The left toe amputation incisions are well healing.) Skin: Other (Rigth BKA dressing c/d/i with coban in place. No evidence of complication or hematoma. Left foot dressed with wound vac in place with good seal noted) Labs Labs: Laboratory Tests Test 09/18/21 11:56 09/18/21 17:12 09/18/21 19:45 09/19/21 07:34 Glucose (Fingerstick) 133 mg/dL (70-99) 119 mg/dL (70-99) 129 mg/dL (70-99) 117 mg/dL (70-99) Assessment and Plan Assessmemt and Plan Problems Medical Problems: (1) Dehydration Status: Acute (2) Mental status alteration Status: Acute (3) Pneumonia Status: Acut Postop day 21 left TMA Postop day 8 right BKA Resolved Covid-19 Subacute thrombotic occlusion of the bilateral popliteal and proximal tibial vessels. s/p bilateral pop/tibial thrombectomies with patch angioplasty s/p RLE hematoma evacuation s/p Right BKA Metabolic cephalopathy Probable Covid toes IVORY Lactic acidosis Dysphagia Malnutrition Heel erythema Poor nail care Severe malnutrition Plan Discharge at 1:00 today with home Comment Review of Relevant I have reviewed the following items amanda (where applicable) has been applied. Justifications for Admission Other Justification COVID-19 positive test (U07.1, COVID-19) with Acute Pneumonia (J12.89, Other viral pneumonia) (If respiratory failure or sepsis present, add as separate assessment) GEDRA RASMUSSEN III DO Sep 19, 2021 10:57
[2021-09-19 11:00] VITALS: BP 113/68
[2021-09-19] MEDS ORDERED: AMOX1TAB11 PO (11:03)
[2021-09-19] MEDS ORDERED: PANT40TA77 PO (11:03)
[2021-09-19] MEDS ORDERED: METO25TA4 PO (11:03)
[2021-09-19] MEDS ORDERED: NYST15PO2 TP (11:03)
[2021-09-19] MEDS ORDERED: ATOR20TA58 PO (11:03)
[2021-09-19] MEDS ORDERED: OXYC1TAB15 PO (11:03)
--- NOTE | 2021-09-19 11:05 | SNU/HH DC ---
DISCHARGE WITH HOME HEALTH DISCHARGE INFORMATION: Final Diagnosis: Problems Medical Problems: (1) Dehydration Status: Acute (2) Mental status alteration Status: Acute (3) Pneumonia Status: Acute Condition on Discharge: Stable CODE STATUS: Code Status: Full HOME HEALTH: Face to Face: I certify this patient is under my care and that I, or a nurse practitioner or physician's medical assistant dermatology working with me, had a face to face encounter that meets the physician face to face encounter requirements with this patient on []. Medical Complications: Other (Status post right BKA and left TMA secondary to Covid toes) Snf For: Assess & Educate Safety RN For Eval/Treatment: Yes Physical Therapy For: Evalulation/Treatment Occupational Therapy For: Evaluation/Treatment Home Health Aide For: Self-care HYDROBLASTER For: Community Resources Pt Meets Homebound Status: Poor coordination w/ amb. POST DISCHARGE ORDERS: DIET AFTER DISCHARGE: Cardiac CERTIFICATION STATEMENT: Certification Statement: Certification Statement: Based on the above finding, I certify that this patient is confined to the home and needs intermittent penitentiary care, physical therapy and/or speech therapy, or continues to need occupational therapy.~ This patient is under my care, and I have initiated the establishment of the plan of care.~ This patient will be followed by myself or a community physician who will periodically review the plan of care. Home Meds Active Scripts Nystatin (NYAMYC) 15 Gm Powder, 1 NIECY TP BID for . for 7 Days, #1 MISC Prov:CASTLE,NIAL K III DO 09/19/21 Pantoprazole Sodium (PANTOPRAZOLE SODIUM ) 40 Mg Tablet.dr, 40 MG PO DAILYAC for . for 30 Days, #30 TAB.SR Prov:CASTLE,NIAL K III DO 09/19/21 Oxycodone/Apap 5-325 (PERCOCET 5-325 MG TABLET ) 1 Each Tablet, 2 TAB PO PRN Q4HRS PRN for SEVERE PAIN for 10 Days, #20 TAB Prov:CASTLE,NIAL K III DO 09/19/21 Metoprolol Tartrate (METOPROLOL TARTRATE) 25 Mg Tablet, 25 MG PO BID for . for 30 Days, #60 TAB Prov:CASTLE,NIAL K III DO 09/19/21 Atorvastatin Calcium (ATORVASTATIN CALCIUM) 20 Mg Tablet, 20 MG PO QHS for . for 30 Days, #30 TAB Prov:CASTLE,NIAL K III DO 09/19/21 Amoxicillin/Potassium Clav (AMOX TR-K CLV 875-125 MG TAB) 1 Each Tablet, 1 TAB PO BID for . for 10 Days, #20 TAB Prov:GERDA RASMUSSEN III DO 09/19/21 GERDA RASMUSSEN III DO Sep 19, 2021 11:05
--- NOTE | 2021-09-19 11:30 | DS ---
DATE OF DISCHARGE: 09/19/2021 ADMISSION DIAGNOSIS: Acute hypoxic respiratory failure secondary to COVID-19 pneumonia. DISCHARGE DIAGNOSES: Resolving respiratory failure, resolving COVID-19 pneumonia, status post COVID toes, which required a left transmetatarsal amputation and right [id number] amputation. CONSULTANTS: Vascular Surgery, Cardiology, Podiatry, Pulmonary Medicine. PROCEDURES: Right BKA and left TMA. HOSPITAL COURSE: The patient is a pleasant 61-year-old male who basically presented with COVID-19 respiratory failure. We gave him full COVID protocol including remdesivir, steroids, antibiotics, vitamins, minerals, beta agonist, codeine cough syrup, aspirin, Lovenox and over the next couple of weeks, we were able to get him through his COVID pneumonia; however, he developed severe COVID toes with severe subacute thrombotic occlusion of the bilateral popliteal and proximal tibial vessels. We did aggressive wound care and antibiotics, but 3 weeks ago, he had to go for a left transmetatarsal amputation. Eight days ago, he had to go for a right BKA. Today, I saw and examined him. He is at his baseline, but needs home health. We plan to discharge. DISPOSITION: Home with home health. ACTIVITY: Bed rest for now until we can get home health. They are to teach him how to get around with his crutches and wheelchairs and eventually he is going to need a right prosthesis. DIET: Cardiac. MEDICATIONS: Amoxicillin 500 mg p.o. b.i.d., atorvastatin 20 mg a day, metoprolol 25 mg b.i.d., nystatin powder, p.r.n., oxycodone and Tylenol 5/325 mg one q. 4 hours p.r.n., Protonix 40 mg a day. TOTAL TIME: [address]: Josh TID: [id number]
--- NOTE | 2021-09-19 12:00 | NUR ---
WOUND halfway wound vac applied and education completed on the use and care of the home wound vac. Patient voiced understanding and stated he would be compliant. Patient to have follow up wound vac care with [facility] and at [facility]. Contact information for [facility] and [facility] was given to the patient. Home health to start on 09/21/21.
--- NOTE | 2021-09-19 13:43 | NUR ---
patient discharged to home with family. Donated wound vac placed on patient before leaving. Patient taken by transportation in wheelchair. Accompanied by friend
== END 2021-09-19 13:00 | disposition home or self-care (01) | DRG 166 ==
LOC: ER 18:09 → ED HOLD 20:36 → 6 SOUTH 22:40 → 5 NORTH 07-30 22:36 → 4 NORTH 08-23 16:45
PROVIDERS: ADMIT Internal Medicine; ATTEND Internal Medicine
PROC: 04CN3ZZ Extirpation of Matter from Left Popliteal Artery, Percutaneous Approach (ICD-10-PCS; 2021-06-29)
PROC: 04CM3ZZ Extirpation of Matter from Right Popliteal Artery, Percutaneous Approach (ICD-10-PCS; 2021-06-29)
PROC: 04CQ3ZZ Extirpation of Matter from Left Anterior Tibial Artery, Percutaneous Approach (ICD-10-PCS; 2021-06-29)
PROC: 04CP3ZZ Extirpation of Matter from Right Anterior Tibial Artery, Percutaneous Approach (ICD-10-PCS; 2021-06-29)
PROC: 0Y9H3ZZ Drainage of Right Lower Leg, Percutaneous Approach (ICD-10-PCS; 2021-07-20)
PROC: 30233N1 Transfusion of Nonautologous Red Blood Cells into Peripheral Vein, Percutaneous Approach (ICD-10-PCS; principal; 2021-07-20 14:30)
PROC: 0Y6P0Z1 Detachment at Right 1st Toe, High, Open Approach (ICD-10-PCS; 2021-08-29)
PROC: 0Y6X0Z1 Detachment at Right 5th Toe, High, Open Approach (ICD-10-PCS; 2021-08-29)
PROC: 0Y6V0Z1 Detachment at Right 4th Toe, High, Open Approach (ICD-10-PCS; 2021-08-29)
PROC: 0Y6T0Z1 Detachment at Right 3rd Toe, High, Open Approach (ICD-10-PCS; 2021-08-29)
PROC: 0Y6R0Z1 Detachment at Right 2nd Toe, High, Open Approach (ICD-10-PCS; 2021-08-29)
PROC: 0JBQ0ZZ Excision of Right Foot Subcutaneous Tissue and Fascia, Open Approach (ICD-10-PCS; 2021-08-29)
PROC: 0JBR0ZZ Excision of Left Foot Subcutaneous Tissue and Fascia, Open Approach (ICD-10-PCS; 2021-08-29 07:30)
PROC: 0Y6H0Z1 Detachment at Right Lower Leg, High, Open Approach (ICD-10-PCS; 2021-09-12)
PROC: 0JBR0ZZ Excision of Left Foot Subcutaneous Tissue and Fascia, Open Approach (ICD-10-PCS; 2021-09-12)
DX: U07.1 COVID-19 (principal); J12.82 Pneumonia due to coronavirus disease 2019; J96.01 Acute respiratory failure with hypoxia; E43 Unspecified severe protein-calorie malnutrition; G92.9 Unspecified toxic encephalopathy; N17.0 Acute kidney failure with tubular necrosis; D68.9 Coagulation defect, unspecified; E87.2 Acidosis; I82.403 Acute embolism and thrombosis of unspecified deep veins of lower extremity, bilateral; I96 Gangrene, not elsewhere classified; D64.9 Anemia, unspecified; E86.0 Dehydration; I10 Essential (primary) hypertension; L97.519 Non-pressure chronic ulcer of other part of right foot with unspecified severity; L97.529 Non-pressure chronic ulcer of other part of left foot with unspecified severity; M24.561 Contracture, right knee; R13.10 Dysphagia, unspecified; S80.11XA Contusion of right lower leg, initial encounter; S91.119A Laceration without foreign body of unspecified toe without damage to nail, initial encounter; Z53.9 Procedure and treatment not carried out, unspecified reason; Z79.01 Long term (current) use of anticoagulants; Z89.512 Acquired absence of left leg below knee; W18.39XA Other fall on same level, initial encounter; Y93.89 Activity, other specified; Y92.89 Other specified places as the place of occurrence of the external cause; Y99.8 Other external cause status
CPT/HCPCS: 36246; 36415; 36430; 36600; 70450; 71045; 75625; 75716; 76882; 80048; 80053; 80061; 82140; 82565; 82607; 82805; 82962; 82977; 83605; 83735; 84100; 84145; 84443; 84484; 85007; 85025; 85027; 85379; 85520; 85610; 85730; 86140; 86592; 86850; 86900; 86901; 86920; 87075; 87077; 87186; 87426; 87804; 88304; 88307; 88311; 93005; 93308; 93923; 93970; 93971; 96361; 96365; 96375; 99152; 99153; A4213; A4223; A4314; A4364; A4657; A4930; A6211; A6223; A6253; A6257; A6402; A6443; A6449; A6450; A6454; A6455; A6457; C1751; C1757; C1768; C1894; C9113; J0171; J0330; J0456; J0690; J0696; J1100; J1170; J1644; J1650; J1815; J2250; J2270; J2370; J2405; J2704; J2720; J3010; J3480; J3490; J7030; J7040; J7120; J7121; P9016; Q9967; U0003; U0005; 73630-50; 92526-GN; 92610-GN; 97110-GO; 97110-GP; 97116-GP; 97530-GO; 97530-GP; 97535-GO; 99285-25; G0378

== ENCOUNTER 2021-10-21 16:34 | Inpatient (IN) | payer SELFPAY ==
[~2021-10-21] VITALS: Ht 177.8 cm; Wt 76.1 kg
[~2021-10-21 16:34] MED LIST: AMOX1TAB11 PO; ATOR20TA58 PO; METO25TA4 PO; NYST15PO2 TP; OXYC1TAB15 PO; PANT40TA77 PO
[2021-10-21] MEDS ORDERED: FAMOTIDINE 20 MG/2 ML VIAL IVP ONE (17:30)
[2021-10-21] MEDS ORDERED: ONDANSETRON PF 4 MG/2 ML VIAL. IVP ONE (17:30)
[2021-10-21] MEDS ORDERED: IV NORMAL SALINE 1000ML BAG 1,000 ML IV ONE ×2 (17:30→20:00)
--- NOTE | 2021-10-21 17:31 | PHYS DOC ---
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 Patient denies anything specifically exacerbating or relieving the pain. Describes the pain as sharp and intermittent. Denies any fever. Review of Systems: Review of Systems: Constitutional: Denies fever or chills. [] Eyes: Denies change in visual acuity. [] HENT: Denies nasal congestion or sore throat. [] Respiratory: Denies cough or shortness of breath. [] Cardiovascular: Denies chest pain or edema. [] GI: Reports epigastric abdominal pain with nausea and vomiting, denies bloody stools or diarrhea. [] : Denies dysuria. [] Musculoskeletal: Denies back pain or joint pain. [] Integument: Denies rash. [] Neurologic: Denies headache, focal weakness or sensory changes. [] Psychiatric: Denies depression or anxiety. [] Heart Score: C/O Chest Pain: N/A Risk Factors: Risk Factors: DM, Current or recent (<one month) smoker, HTN, HLP, family his tory of CAD, obesity. Risk Scores: Score 0 - 3: 2.5% MACE over next 6 weeks - Discharge Home Score 4 - 6: 20.3% MACE over next 6 weeks - Admit for Clinical Observation Score 7 - 10: 72.7% MACE over next 6 weeks - Early Invasive Strategies Current Medications: Current Medications Medications (Trade) Dose Ordered Sig/Vicente Start Time Stop Time Status Last Admin Dose Admin Famotidine (Pepcid Vial) 20 mg 1X ONCE 10/21/21 17:30 10/21/21 17:31 UNV Fentanyl Citrate (Fentanyl 2ml Vial) 50 mcg PRN Q15MIN PRN 10/21/21 17:30 10/22/21 17:29 UNV Ondansetron HCl (Zofran) 4 mg 1X ONCE 10/21/21 17:30 10/21/21 17:31 UNV Sodium Chloride 1,000 ml @ 1,000 mls/hr 1X ONCE 10/21/21 17:30 10/21/21 18:29 UNV Allergies: Allergies: Allergies Coded Allergies Type Severity Reaction Last Updated Verified No Known Drug Allergies 07/27/21 No Physical Exam: PE: Constitutional: Well developed, well nourished, no acute distress, non-toxic appearance. [] HENT: Normocephalic, atraumatic, bilateral external ears normal, oropharynx moist, no oral exudates, nose normal. [] Eyes: PERRLA, EOMI, conjunctiva normal, no discharge. [] Neck: Normal range of motion, no tenderness, supple, no stridor. [] Cardiovascular:Heart rate regular rhythm, no murmur [] Lungs & Thorax: Bilateral breath sounds clear to auscultation [] Abdomen: Bowel sounds normal, soft, mild epigastric tenderness, negative Banuelos sign, no tenderness to the right lower quadrant, no masses, no pulsatile masses. [] Skin: Warm, dry, no erythema, no rash. [] Back: No tenderness, no CVA tenderness. [] Extremities: No tenderness, no cyanosis, no clubbing, ROM intact, right lower extremity in a boot for taking the lower extremity after having right below the knee amputation in June, left foot in a heel protector boot Neurologic: Alert and oriented X 3, normal motor function, normal sensory func tion, no focal deficits noted. [] Psychologic: Affect normal, judgement normal, mood normal. [] EKG: EKG: [] Radiology/Procedures: Radiology/Procedures: []PROCEDURE: CT ABD PELV W/ IV CONTRST ONLY CT ABDOMEN+PELVIS W History: Abdominal pain. Comparison: Chest x-ray 06/29/2021 Technique: CT of the abdomen and pelvis with intravenous contrast. Findings: Extensive subpleural reticulation/scarring in the lower lungs. Left lower pole 7 mm nodule (axial image 10). Coronary artery calcifications. The liver is unremarkable. Multiple stones within the gallbladder. The pancreas, spleen and adrenal glands are unremarkable. The kidneys are normal. The bladder and prostate are unremarkable. The stomach is unremarkable. The small bowel is not obstructed. No evidence of appendicitis. Prominent stool in the cecum. Moderate diverticulosis. Wall thickening in the partially distended sigmoid colon. Prominent stool at the rectum. No free intraperitoneal air or fluid. Retroaortic left renal vein. Moderate atherosclerosis of the aorta and iliac arteries. No adenopathy. Fat contained within the left inguinal canal. Sclerotic density within the L2 vertebral body most likely represents bone island. No acute osseous abnormality. Impression: 1. Cholelithiasis. 2. Moderate diverticulosis with wall thickening in a segment of the sigmoid colon. This may represent under distention versus mild diverticulitis or colitis. 3. Left lower lobe nodule measuring 7 mm. Recommend follow-up according to 2017 Fleischner Society Guidelines for solid pulmonary nodules: 6-8 mm: In a low risk patient, CT at 6-12 months, then consider CT at 18-24 months. In a high risk patient (history of smoking or other known risk factors), CT at 6-[address] at 18-24 months. 4. Extensive peripheral subpleural bandlike scarring in the bilateral lower lungs. Findings are suspected sequela of prior infection. Correlate with respiratory symptoms. ------ Exposure: One or more of the following individualized dose reduction techniques were utilized for this examination: 1. Automated exposure control 2. Adjustment of the mA and/or kV according to patient size 3. Use of iterative reconstruction technique. Electronically signed by: Ozzy Maloney MD (10/21/2021 6:58 PM) [facility] DICTATED and SIGNED BY: OZZY MALONEY MD DATE: 10/21/211849 Course & Med Decision Making: Course & Med Decision Making Pertinent Labs and Imaging studies reviewed. (See chart for details) This a 61-year-old male patient presented to the ED today with complaints of epigastric abdominal pain, symptoms began yesterday. Also complaining of nausea and vomiting. Vitals on arrival to the ED temperature 97.6, heart rate 84, respiration 20, blood pressure 157/90, O2 sats 98%. CBC with a WBC of 15.0 and a left shift, CMP with no acute findings. UA positive for infection. CT of the abdomen and pelvis noted for cholelithiasis, possible diverticulitis/colitis, Left lower lobe nodule measuring 7 mm, extensive peripheral subpleural bandlike scarring in the bilateral lower lungs. Findings are suspected sequela of prior infection. Correlate with respiratory symptoms. Given Rocephin in the ED. Spoke to Dr. Tovar who accepted patient for admission, routine consult placed for RAFAELA Chau Disclaimer: Kandi Disclaimer: This electronic medical record was generated, in whole or in part, using a voice recognition dictation system. Departure Departure Impression: Primary Impression: UTI (urinary tract infection) Qualified Codes: N39.0 - Urinary tract infection, site not specified Additional Impressions: Diverticulitis Cholelithiasis Qualified Codes: K80.80 - Other cholelithiasis without obstruction Nodule of left lung Disposition: ADMITTED INPATIENT Condition: STABLE Referrals: NO PCP (PCP) RICHY TORRES [employer] Oct 21, 2021 17:31
[2021-10-21] MEDS: fentaNYL PF VIAL 100 MCG/2 ML VIAL IV PRN ×2 (17:58→18:55)
[2021-10-21 18:01] LABS: WBC,URINE >40 /HPF (0-4)
[2021-10-21 18:03] LABS: AMORPHOUS SEDIMENT,UR PRESENT /HPF
[2021-10-21 18:06] LABS: BACTERIA,URINE 0 /HPF (0-FEW); YEAST,URINE PRESENT /HPF
[2021-10-21 18:10] LABS: BASO % 0 % (0-3); EOS % 0 % (0-3); HEMATOCRIT 46.4 % (39.0-53.0); HEMOGLOBIN 15.2 g/dL (13.0-17.5); LYMPH # 1.1 x10^3/uL (1.0-4.8); LYMPH % 8 % (24-48); MEAN CORPUSCULAR HEMOGLOBIN 29 pg (25-35); MEAN CORPUSCULAR HGB CONC 33 g/dL (31-37); MEAN CORPUSCULAR VOLUME 87 fL (79-100); MONO # 0.5 x10^3/uL (0.0-1.1); MONO % 3 % (0-9); NEUT # 13.3 x10^3/uL (1.8-7.7); NEUT % 89 % (31-73); PLATELET COUNT 266 x10^3/uL (140-400); RED BLOOD COUNT 5.32 x10^6/uL (4.30-5.70); RED CELL DISTRIBUTION WIDTH 15.4 % (11.5-14.5)
[2021-10-21 18:13] LABS: BARBITURATES NEG (NEG); BENZODIAZEPINES NEG (NEG); CANNABINOIDS NEG (NEG); COCAINE NEG (NEG); METHADONE NEG (NEG); OPIATES NEG (NEG); PHENCYCLIDINE NEG (NEG)
[2021-10-21 18:19] LABS: AMPHETAMINE/METHAMPHETAMINE NEG (NEG)
[2021-10-21 18:24] LABS: CALCIUM 9.7 mg/dL (8.5-10.1); CREATININE 0.9 mg/dL (0.7-1.3); GFR 85.5; POTASSIUM 3.9 mmol/L (3.5-5.1)
[2021-10-21] MEDS ORDERED: cefTRIAXone IV Push 1 GM VIAL. IVP ONE (18:30)
[2021-10-21] MEDS ORDERED: IOHEXOL 300 MG/ML 100ML VIAL. IV ONE (18:30)
[2021-10-21 18:32] LABS: ALBUMIN 4.1 g/dL (3.4-5.0); ALBUMIN/GLOBULIN RATIO 1.1 (1.0-1.7); MAGNESIUM 1.8 mg/dL (1.8-2.4); TOTAL BILIRUBIN 0.3 mg/dL (0.2-1.0)
--- NOTE | 2021-10-21 19:00 | RAD ---
CT ABDOMEN+PELVIS W History: Abdominal pain. Comparison: Chest x-ray 06/29/2021 Technique: CT of the abdomen and pelvis with intravenous contrast. Findings: Extensive subpleural reticulation/scarring in the lower lungs. Left lower pole 7 mm nodule (axial martinez ge 10). Coronary artery calcifications. The liver is unremarkable. Multiple stones within the gallbladder. The pancreas, spleen and adrenal g lands are unremarkable. The kidneys are normal. The bladder and prostate are unremarkable. The stomach is unremarkable. The small bowel is not obstructed. No evidence of appendicitis. Prominen t stool in the cecum. Moderate diverticulosis. Wall thickening in the partially distended sigmoid col on. Prominent stool at the rectum. No free intraperitoneal air or fluid. Retroaortic left renal vein. Moderate atherosclerosis of the ao rta and iliac arteries. No adenopathy. Fat contained within the left inguinal canal. Sclerotic density within the L2 vertebral body most lik sunil represents bone island. No acute osseous abnormality. Impression: 1. Cholelithiasis. 2. Moderate diverticulosis with wall thickening in a segment of the sigmoid colon. This may represen t under distention versus mild diverticulitis or colitis. 3. Left lower lobe nodule measuring 7 mm. Recommend follow-up according to 2017 Fleischner Society G uidelines for solid pulmonary nodules: 6-8 mm: In a low risk patient, CT at 6-12 months, then conside r CT at 18-24 months. In a high risk patient (history of smoking or other known risk factors), CT at 6-[address] at 18-24 months. 4. Extensive peripheral subpleural bandlike scarring in the bilateral lower lungs. Findings are susp ected sequela of prior infection. Correlate with respiratory symptoms. ------ Exposure: One or more of the following individualized dose reduction techniques were utilized for thi s examination: 1. Automated exposure control 2. Adjustment of the mA and/or kV according to patient size 3. Use of iterative reconstruction technique. Electronically signed by: Ozzy Beverly MD (10/21/2021 6:58 PM) [facility]
[2021-10-21 19:28] LABS: % BANDS 1 % (0-9); % BASOS 1 % (0-3); % LYMPHS 9 % (24-48); % MONOS 4 % (0-10); % SEGS 85 % (35-66); PLT ESTIMATE ADEQUATE (ADEQUATE)
[2021-10-21] MEDS ORDERED: diphenhydrAMINE 50 MG/ML VIAL IVP PRN (19:45)
[2021-10-21] MEDS ORDERED: oxyCODONE/APAP 5/325 1 TAB TABLET PO PRN ×2 (19:45)
[2021-10-21] MEDS ORDERED: PROCHLORPERAZINE 10 MG/2 ML VIAL. IV PRN (19:45)
[2021-10-21] MEDS ORDERED: ZOLPIDEM 5 MG TABLET. PO PRN (19:45)
[2021-10-21] MEDS ORDERED: LORazepam 0.5 MG TABLET PO PRN (19:45)
[2021-10-21] MEDS ORDERED: ACETAMINOPHEN 325 MG TABLET. PO PRN ×2 (19:45)
[2021-10-21] MEDS ORDERED: DOCUSATE SODIUM 100 MG CAPSULE. PO PRN (19:45)
[2021-10-21] MEDS ORDERED: SENNOSIDES 8.6 MG TABLET PO PRN (19:45)
[2021-10-21] MEDS ORDERED: DEXTROSE 50% 25 GM / 50ML DISP.SYRIN. IV PRN (19:45)
[2021-10-21] MEDS ORDERED: ONDANSETRON PF 4 MG/2 ML VIAL. IVP PRN ×2 (19:45)
[2021-10-21] MEDS ORDERED: diphenhydrAMINE HCL 25 MG CAPSULE PO PRN ×2 (19:45)
[2021-10-21] MEDS ORDERED: MORPHINE SULFATE 4 MG/ML INJ. IVP PRN (19:45)
[2021-10-21] MEDS ORDERED: CIPROFLOXACIN 400MG PREMIX 200 ML IV ONE (20:00)
[2021-10-21] MEDS: ENOXAPARIN 40 MG/0.4 ML SYRINGE. SQ SCH ×2 (21:00→23:10)
[2021-10-21 22:34] VITALS: BP 156/92
[2021-10-21] MEDS: PANTOPRAZOLE IV PUSH 40 MG VIAL. IVP SCH (23:11)
[2021-10-22 03:41] VITALS: BP 136/85
[2021-10-22 04:46] LABS: BASO % 0 % (0-3); EOS % 0 % (0-3); HEMATOCRIT 39.4 % (39.0-53.0); LYMPH # 2.7 x10^3/uL (1.0-4.8); LYMPH % 21 % (24-48); MEAN CORPUSCULAR HEMOGLOBIN 29 pg (25-35); MEAN CORPUSCULAR HGB CONC 33 g/dL (31-37); MEAN CORPUSCULAR VOLUME 88 fL (79-100); MONO # 1.6 x10^3/uL (0.0-1.1); MONO % 13 % (0-9); NEUT # 8.3 x10^3/uL (1.8-7.7); NEUT % 66 % (31-73); PLATELET COUNT 219 x10^3/uL (140-400); RED BLOOD COUNT 4.47 x10^6/uL (4.30-5.70); RED CELL DISTRIBUTION WIDTH 15.3 % (11.5-14.5); WHITE BLOOD COUNT 12.7 x10^3/uL (4.0-11.0)
[2021-10-22 07:00] VITALS: BP 137/86
--- NOTE | 2021-10-22 07:52 | PDOC ---
[employer] PROGRESS NOTE Date of Service DOS: DATE: 10/22/21 TIME: 07:52 Chief Complaint Chief Complaint Acute diverticulitis UTI History of COVID infection with COVID toes Status post amputation Asymptomatic cholelithiasis Admit to hospitalist for further management Continue IV antibiotics Pending urine cultures Clear liquid diet and advance as tolerated to high-fiber diet Serial abdominal exams Lovenox for DVT prophylaxis Protonix GI prophylaxis ADA diet CODE STATUS full Discussed with RN and SW Disposition inpatient management as above DPOA: Mother History of Present Illness History of Present Illness 61 year old male with 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 Patient denies anything specifically exacerbating or relieving the pain. Describes the pain as sharp and intermittent. Denies any fever. 10/22/2021 No acute events overnight. Patient seen examined bedside. Abdominal pain much improved. Denies any dysuria. AF and VSS. Patient's chart, labs, images were reviewed and discussed with RN Vitals/I&O Vitals/I&O: Vital Signs Date Time Temp Pulse Resp B/P (MAP) Pulse Ox O2 Delivery O2 Flow Rate FiO2 10/22/21 03:41 98.5 82 19 136/85 (102) 98 Room Air 98.5 I & O 10/21/21 10/21/21 10/22/21 15:00 23:00 07:00 Intake Total 0 ml Output Total 300 ml Balance -300 ml Physical Exam General: Alert, Oriented X3, Cooperative Heart: Regular rate Lungs: Clear Abdomen: Normal bowel sounds, No tenderness Skin: No rashes Labs Labs: Laboratory Tests Test 10/21/21 17:45 10/21/21 17:50 10/22/21 01:50 10/22/21 07:22 Urine Collection Type Unknown Urine Color (Auto) Light orange Urine Turbidity Turbid Urine pH (Auto) 8.0 (<5.0-8.0) Urine Specific [place] 1.023 (1.000-1.030) Urine Protein (Auto) 30 mg/dL (Negative) Urine Glucose (Auto)(UA) Negative mg/dL (Negative) Urine Ketones (Auto) Negative mg/dL (Negative) Urine Blood (Auto) Trace (Negative) Urine Nitrite Negative (Negative) Urine Bilirubin (Auto) Negative (Negative) Urine Urobilinogen (Auto) Normal mg/dL (Normal) Urine Leukocyte Esterase (Auto) Large (Negative) Urine RBC 1-2 /HPF (0-2) Urine WBC >40 /HPF (0-4) Urine Amorphous Sediment Present /HPF Urine Bacteria 0 /HPF (0-FEW) Urine Yeast Present /HPF Urine Opiates Screen Neg (NEG) Urine Methadone Screen Neg (NEG) Urine Barbiturates Neg (NEG) Urine Phencyclidine Screen Neg (NEG) Urine Amphetamine/Methamphetamine Neg (NEG) Urine Benzodiazepines Screen Neg (NEG) Urine Cocaine Screen Neg (NEG) Urine Cannabinoids Screen Neg (NEG) Urine Ethyl Alcohol Neg (NEG) White Blood Count 15.0 x10^3/uL (4.0-11.0) 12.7 x10^3/uL (4.0-11.0) Red Blood Count 5.32 x10^6/uL (4.30-5.70) 4.47 x10^6/uL (4.30-5.70) Hemoglobin 15.2 g/dL (13.0-17.5) 13.0 g/dL (13.0-17.5) Hematocrit 46.4 % (39.0-53.0) 39.4 % (39.0-53.0) Mean Corpuscular Volume 87 fL (79-100) 88 fL (79-100) Mean Corpuscular Hemoglobin 29 pg (25-35) 29 pg (25-35) Mean Corpuscular Hemoglobin Concent 33 g/dL (31-37) 33 g/dL (31-37) Red Cell Distribution Width 15.4 % (11.5-14.5) 15.3 % (11.5-14.5) Platelet Count 266 x10^3/uL (140-400) 219 x10^3/uL (140-400) Neutrophils (%) (Auto) 89 % (31-73) 66 % (31-73) Lymphocytes (%) (Auto) 8 % (24-48) 21 % (24-48) Monocytes (%) (Auto) 3 % (0-9) 13 % (0-9) Eosinophils (%) (Auto) 0 % (0-3) 0 % (0-3) Basophils (%) (Auto) 0 % (0-3) 0 % (0-3) Neutrophils # (Auto) 13.3 x10^3/uL (1.8-7.7) 8.3 x10^3/uL (1.8-7.7) Lymphocytes # (Auto) 1.1 x10^3/uL (1.0-4.8) 2.7 x10^3/uL (1.0-4.8) Monocytes # (Auto) 0.5 x10^3/uL (0.0-1.1) 1.6 x10^3/uL (0.0-1.1) Eosinophils # (Auto) 0.0 x10^3/uL (0.0-0.7) 0.0 x10^3/uL (0.0-0.7) Basophils # (Auto) 0.0 x10^3/uL (0.0-0.2) 0.0 x10^3/uL (0.0-0.2) Segmented Neutrophils % 85 % (35-66) Band Neutrophils % 1 % (0-9) Lymphocytes % 9 % (24-48) Monocytes % 4 % (0-10) Basophils % 1 % (0-3) Platelet Estimate Adequate (ADEQUATE) Sodium Level 139 mmol/L (136-145) Potassium Level 3.9 mmol/L (3.5-5.1) Chloride Level 98 mmol/L (98-107) Carbon Dioxide Level 27 mmol/L (21-32) Anion Gap 14 (6-14) Blood Urea Nitrogen 11 mg/dL (8-26) Creatinine 0.9 mg/dL (0.7-1.3) Estimated GFR (Cockcroft-Gault) 85.5 BUN/Creatinine Ratio 12 (6-20) Glucose Level 127 mg/dL (70-99) Calcium Level 9.7 mg/dL (8.5-10.1) Magnesium Level 1.8 mg/dL (1.8-2.4) Total Bilirubin 0.3 mg/dL (0.2-1.0) Aspartate Amino Transf (AST/SGOT) 21 U/L (15-37) Alanine Aminotransferase (ALT/SGPT) 23 U/L (16-63) Alkaline Phosphatase 59 U/L (46-116) Troponin I High Sensitivity < 4 ng/L (4-75) 6 ng/L (4-75) KA-Eim-X-Type Natriuretic Peptide 82 pg/mL (0-124) Total Protein 8.0 g/dL (6.4-8.2) Albumin 4.1 g/dL (3.4-5.0) Albumin/Globulin Ratio 1.1 (1.0-1.7) Lipase 257 U/L (73-393) Glucose (Fingerstick) 104 mg/dL (70-99) Assessment and Plan Assessmemt and Plan Problems Medical Problems: (1) Cholelithiasis Status: Acute (2) Nodule of left lung Status: Acute Comment Review of Relevant I have reviewed the following items amanda (where applicable) has been applied. Medications: Current Medications Medications (Trade) Dose Ordered Sig/Vicente Route PRN Reason Start Time Stop Time Status Last Admin Dose Admin Fentanyl Citrate (Fentanyl 2ml Vial) 50 mcg PRN Q15MIN PRN IV PAIN GREATER THAN 3/10 10/21/21 17:30 10/21/21 20:30 DC 10/21/21 18:55 Ondansetron HCl (Zofran) 4 mg 1X ONCE IVP 10/21/21 17:30 10/21/21 17:31 DC 10/21/21 18:00 Famotidine (Pepcid Vial) 20 mg 1X ONCE IVP 10/21/21 17:30 10/21/21 17:31 DC 10/21/21 18:01 Sodium Chloride 1,000 ml @ 1,000 mls/hr 1X ONCE IV 10/21/21 17:30 10/21/21 18:29 DC 10/21/21 17:54 Ceftriaxone Sodium (Rocephin) 1 gm 1X ONCE IVP 10/21/21 18:30 10/21/21 18:31 DC 10/21/21 18:55 Iohexol (Omnipaque 300 Mg/ml) 75 ml 1X ONCE IV 10/21/21 18:30 10/21/21 18:31 DC 10/21/21 18:47 Morphine Sulfate (Morphine Sulfate) 4 mg PRN Q2HR PRN IVP PAIN 10/21/21 19:45 10/22/21 19:44 10/21/21 20:11 Sodium Chloride 1,000 ml @ 100 mls/hr 1X ONCE IV 10/21/21 20:00 10/22/21 05:59 DC 10/21/21 20:30 Ciprofloxacin/ Dextrose 200 ml @ 200 mls/hr 1X ONCE IV 10/21/21 20:00 10/21/21 20:59 DC 10/21/21 20:11 Metronidazole 100 ml @ 100 mls/hr Q12HR IV 10/21/21 21:00 10/21/21 21:00 Pantoprazole Sodium (PROTONIX VIAL for IV PUSH) 40 mg DAILYAC IVP 10/21/21 20:30 10/21/21 23:11 Diphenhydramine HCl (Benadryl) 25 mg PRN Q6HRS PRN IVP ITCHING 10/21/21 19:45 10/21/21 23:10 Justifications for Admission Other Justification diverticulitis BRIANA MOHR MD October 22, 2021 07:52
--- NOTE | 2021-10-22 07:52 | PDOC1 ---
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 Patient denies anything specifically exacerbating or relieving the pain. Describes the pain as sharp and intermittent. Denies any fever. 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 Allergies: Allergies: Coded Allergies: No Known Drug Allergies (Unverified , 07/27/21) Family History: Family History: Reviewed with no relative findings in the chart Social History: Social History: Smoking Status: Unknown if ever smoked Alcohol Use: None Drug Use: None Current Medications: Current Medications Current Medications Fentanyl Citrate (Fentanyl 2ml Vial) 50 mcg PRN Q15MIN PRN IV PAIN GREATER THAN 3/10 Last administered on 10/21/21at 18:55; Start 10/21/21 at 17:30; Stop 10/21/21 at 20:30; Status DC Ondansetron HCl (Zofran) 4 mg 1X ONCE IVP Last administered on 10/21/21at 18:00; Start 10/21/21 at 17:30; Stop 10/21/21 at 17:31; Status DC Famotidine (Pepcid Vial) 20 mg 1X ONCE IVP Last administered on 10/21/21at 18:01; Start 10/21/21 at 17:30; Stop 10/21/21 at 17:31; Status DC Sodium Chloride 1,000 ml @ 1,000 mls/hr 1X ONCE IV Last administered on 10/21/21at 17:54; Start 10/21/21 at 17:30; Stop 10/21/21 at 18:29; Status DC Ceftriaxone Sodium (Rocephin) 1 gm 1X ONCE IVP Last administered on 10/21/21at 18:55; Start 10/21/21 at 18:30; Stop 10/21/21 at 18:31; Status DC Iohexol (Omnipaque 300 Mg/ml) 75 ml 1X ONCE IV Last administered on 10/21/21at 18:47; Start 10/21/21 at 18:30; Stop 10/21/21 at 18:31; Status DC Ondansetron HCl (Zofran) 4 mg PRN Q8HRS PRN IVP NAUSEA/VOMITING; Start 10/21/21 at 19:45; Stop 10/21/21 at 20:03; Status DC Morphine Sulfate (Morphine Sulfate) 4 mg PRN Q2HR PRN IVP PAIN Last administered on 10/21/21at 20:11; Start 10/21/21 at 19:45; Stop 10/22/21 at 19:44 Acetaminophen (Tylenol) 650 mg PRN Q4HRS PRN PO FEVER > 100.3'F; Start 10/21/21 at 19:45; Stop 10/21/21 at 20:02; Status DC Sodium Chloride 1,000 ml @ 100 mls/hr 1X ONCE IV Last administered on 10/21/21at 20:30; Start 10/21/21 at 20:00; Stop 10/22/21 at 05:59; Status DC Ciprofloxacin/ Dextrose 200 ml @ 200 mls/hr 1X ONCE IV Last administered on 10/21/21at 20:11; Start 10/21/21 at 20:00; Stop 10/21/21 at 20:59; Status DC Metronidazole 100 ml @ 100 mls/hr 1X ONCE IV ; Start 10/21/21 at 20:00; Stop 10/21/21 at 20:59; Status DC Metronidazole 100 ml @ 100 mls/hr Q12HR IV Last administered on 10/21/21at 21:00; Start 10/21/21 at 21:00 Cefepime HCl (Maxipime) 1 gm Q12H IVP ; Start 10/22/21 at 09:00 Sennosides (Senna) 17.2 mg PRN BID PRN PO CONSTIPATION; Start 10/21/21 at 19:45 Docusate Sodium (Colace) 100 mg PRN DAILY PRN PO HARD STOOLS; Start 10/21/21 at 19:45 Ondansetron HCl (Zofran) 4 mg PRN Q6HRS PRN IVP NAUSEA/VOMITING, 1st CHOICE; Start 10/21/21 at 19:45 Dextrose (Dextrose 50%-Water Syringe) 12.5 gm PRN Q15MIN PRN IV SEE COMMENTS; Start 10/21/21 at 19:45 Sodium Chloride 1,000 ml @ 100 mls/hr Q10H IV ; Start 10/22/21 at 06:00 Acetaminophen (Tylenol) 650 mg PRN Q4HRS PRN PO TEMP OVER 100.4F OR MILD PAIN; Start 10/21/21 at 19:45 Lorazepam (Ativan) 0.5 mg PRN Q6HRS PRN PO ANXIETY / AGITATION; Start 10/21/21 at 19:45 Lorazepam (Ativan Inj) 0.25 mg PRN Q4HRS PRN IV ANXIETY / AGITATION; Start 10/21/21 at 19:45 Enoxaparin Sodium (Lovenox 40mg Syringe) 40 mg Q24H SQ ; Start 10/21/21 at 21:00 Pantoprazole Sodium (PROTONIX VIAL for IV PUSH) 40 mg DAILYAC IVP Last administered on 10/21/21at 23:11; Start 10/21/21 at 20:30 Oxycodone/ Acetaminophen (Percocet 5/325) 1 tab PRN Q4HRS PRN PO MODERATE PAIN; Start 10/21/21 at 19:45 Oxycodone/ Acetaminophen (Percocet 5/325) 2 tab PRN Q4HRS PRN PO MODERATE TO SEVERE PAIN; Start 10/21/21 at 19:45 Prochlorperazine Edisylate (Compazine) 10 mg PRN Q6HRS PRN IV NAUSEA/VOMITING, 2nd CHOICE; Start 10/21/21 at 19:45 Diphenhydramine HCl (Benadryl) 25 mg PRN Q6HRS PRN IVP ITCHING Last administered on 10/21/21at 23:10; Start 10/21/21 at 19:45 Diphenhydramine HCl (Benadryl) 25 mg PRN Q6HRS PRN PO ITCHING; Start 10/21/21 at 19:45 Diphenhydramine HCl (Benadryl) 25 mg PRN QHS PRN PO INSOMNIA, 1st CHOICE; Start 10/21/21 at 19:45 Zolpidem Tartrate (Ambien) 2.5 mg PRN QHS PRN PO INSOMNIA, 2nd CHOICE; Start 10/21/21 at 19:45 Active Scripts Active Nyamyc (Nystatin) 15 Gm Powder 1 Tree TP BID 7 Days Pantoprazole Sodium (Pantoprazole Sodium) 40 Mg Tablet.dr 40 Mg PO DAILYAC 30 Days Percocet 5-325 Mg Tablet (Oxycodone/Acetaminophen) 1 Each Tablet 2 Tab PO PRN Q4HRS PRN 10 Days Metoprolol Tartrate 25 Mg Tablet 25 Mg PO BID 30 Days Atorvastatin Calcium 20 Mg Tablet 20 Mg PO QHS 30 Days Amox Tr-K Clv 875-125 Mg Tab (Amoxicillin/Potassium Clav) 1 Each Tablet 1 Tab PO BID 10 Days ROS: Review of Systems Review of System REVIEW OF SYSTEMS: GENERAL: Denies weakness SKIN: No bruising, hair changes or rashes. EYES: No blurred, double or loss of vision. NOSE AND THROAT: No history of nosebleeds, hoarseness or sore throat. HEART: No history of palpitations, chest pain or shortness of breath on exertion. LUNGS: Denies cough, hemoptysis, wheezing or shortness of breath. GASTROINTESTINAL: Positive for nausea vomiting abdominal pain GENITOURINARY: No history of frequency, urgency, hesitancy or nocturia. NEUROLOGIC: Denies history of numbness, tingling, or tremor. PSYCHIATRIC: No history of panic, anxiety or depression. ENDOCRINE: No history of heat or cold intolerance, polyuria or polydipsia. EXTREMITIES: Denies joint pain, pain on walking or stiffness. Physical Exam: Vital Signs: Vital Signs Date Time Temp Pulse Resp B/P (MAP) Pulse Ox O2 Delivery O2 Flow Rate FiO2 10/22/21 03:41 98.5 82 19 136/85 (102) 98 Room Air 98.5 Physcial Exam: General: Well developed, well nourished, no acute distress, well appearing HEENT: Pupils equally round and reactive to light, EOMI, no discharge, normal conjunctiva Neck: Supple, no nuchal rigidity, no JVD, trachea midline, no tenderness Cardiac: RRR, no murmurs, no gallops, no rubs Chest/Lungs: CTAB, no wheeze, no rhonchi, no crackles Abdomen: soft, non-distended, no guarding, no peritoneal signs, non-tender Back: No tenderness Extremities: Bilateral lower extremity in heel boots. Incisions are well-healed and clear dry and intact Neuro: Alert and oriented x 4, no focal deficits, normal speech Labs: Labs: Laboratory Tests Test 10/21/21 17:45 10/21/21 17:50 10/22/21 01:50 10/22/21 07:22 Urine Collection Type Unknown Urine Color (Auto) Light orange Urine Turbidity Turbid Urine pH (Auto) 8.0 (<5.0-8.0) Urine Specific [place] 1.023 (1.000-1.030) Urine Protein (Auto) 30 mg/dL (Negative) Urine Glucose (Auto)(UA) Negative mg/dL (Negative) Urine Ketones (Auto) Negative mg/dL (Negative) Urine Blood (Auto) Trace (Negative) Urine Nitrite Negative (Negative) Urine Bilirubin (Auto) Negative (Negative) Urine Urobilinogen (Auto) Normal mg/dL (Normal) Urine Leukocyte Esterase (Auto) Large (Negative) Urine RBC 1-2 /HPF (0-2) Urine WBC >40 /HPF (0-4) Urine Amorphous Sediment Present /HPF Urine Bacteria 0 /HPF (0-FEW) Urine Yeast Present /HPF Urine Opiates Screen Neg (NEG) Urine Methadone Screen Neg (NEG) Urine Barbiturates Neg (NEG) Urine Phencyclidine Screen Neg (NEG) Urine Amphetamine/Methamphetamine Neg (NEG) Urine Benzodiazepines Screen Neg (NEG) Urine Cocaine Screen Neg (NEG) Urine Cannabinoids Screen Neg (NEG) Urine Ethyl Alcohol Neg (NEG) White Blood Count 15.0 x10^3/uL (4.0-11.0) 12.7 x10^3/uL (4.0-11.0) Red Blood Count 5.32 x10^6/uL (4.30-5.70) 4.47 x10^6/uL (4.30-5.70) Hemoglobin 15.2 g/dL (13.0-17.5) 13.0 g/dL (13.0-17.5) Hematocrit 46.4 % (39.0-53.0) 39.4 % (39.0-53.0) Mean Corpuscular Volume 87 fL (79-100) 88 fL (79-100) Mean Corpuscular Hemoglobin 29 pg (25-35) 29 pg (25-35) Mean Corpuscular Hemoglobin Concent 33 g/dL (31-37) 33 g/dL (31-37) Red Cell Distribution Width 15.4 % (11.5-14.5) 15.3 % (11.5-14.5) Platelet Count 266 x10^3/uL (140-400) 219 x10^3/uL (140-400) Neutrophils (%) (Auto) 89 % (31-73) 66 % (31-73) Lymphocytes (%) (Auto) 8 % (24-48) 21 % (24-48) Monocytes (%) (Auto) 3 % (0-9) 13 % (0-9) Eosinophils (%) (Auto) 0 % (0-3) 0 % (0-3) Basophils (%) (Auto) 0 % (0-3) 0 % (0-3) Neutrophils # (Auto) 13.3 x10^3/uL (1.8-7.7) 8.3 x10^3/uL (1.8-7.7) Lymphocytes # (Auto) 1.1 x10^3/uL (1.0-4.8) 2.7 x10^3/uL (1.0-4.8) Monocytes # (Auto) 0.5 x10^3/uL (0.0-1.1) 1.6 x10^3/uL (0.0-1.1) Eosinophils # (Auto) 0.0 x10^3/uL (0.0-0.7) 0.0 x10^3/uL (0.0-0.7) Basophils # (Auto) 0.0 x10^3/uL (0.0-0.2) 0.0 x10^3/uL (0.0-0.2) Segmented Neutrophils % 85 % (35-66) Band Neutrophils % 1 % (0-9) Lymphocytes % 9 % (24-48) Monocytes % 4 % (0-10) Basophils % 1 % (0-3) Platelet Estimate Adequate (ADEQUATE) Sodium Level 139 mmol/L (136-145) Potassium Level 3.9 mmol/L (3.5-5.1) Chloride Level 98 mmol/L (98-107) Carbon Dioxide Level 27 mmol/L (21-32) Anion Gap 14 (6-14) Blood Urea Nitrogen 11 mg/dL (8-26) Creatinine 0.9 mg/dL (0.7-1.3) Estimated GFR (Cockcroft-Gault) 85.5 BUN/Creatinine Ratio 12 (6-20) Glucose Level 127 mg/dL (70-99) Calcium Level 9.7 mg/dL (8.5-10.1) Magnesium Level 1.8 mg/dL (1.8-2.4) Total Bilirubin 0.3 mg/dL (0.2-1.0) Aspartate Amino Transf (AST/SGOT) 21 U/L (15-37) Alanine Aminotransferase (ALT/SGPT) 23 U/L (16-63) Alkaline Phosphatase 59 U/L (46-116) Troponin I High Sensitivity < 4 ng/L (4-75) 6 ng/L (4-75) [id number]-Type Natriuretic Peptide 82 pg/mL (0-124) Total Protein 8.0 g/dL (6.4-8.2) Albumin 4.1 g/dL (3.4-5.0) Albumin/Globulin Ratio 1.1 (1.0-1.7) Lipase 257 U/L (73-393) Glucose (Fingerstick) 104 mg/dL (70-99) Laboratory Tests Test 10/21/21 17:45 10/21/21 17:50 10/22/21 01:50 10/22/21 07:22 Urine Collection Type Unknown Urine Color (Auto) Light orange Urine Turbidity Turbid Urine pH (Auto) 8.0 (<5.0-8.0) Urine Specific [place] 1.023 (1.000-1.030) Urine Protein (Auto) 30 mg/dL (Negative) Urine Glucose (Auto)(UA) Negative mg/dL (Negative) Urine Ketones (Auto) Negative mg/dL (Negative) Urine Blood (Auto) Trace (Negative) Urine Nitrite Negative (Negative) Urine Bilirubin (Auto) Negative (Negative) Urine Urobilinogen (Auto) Normal mg/dL (Normal) Urine Leukocyte Esterase (Auto) Large (Negative) Urine RBC 1-2 /HPF (0-2) Urine WBC >40 /HPF (0-4) Urine Amorphous Sediment Present /HPF Urine Bacteria 0 /HPF (0-FEW) Urine Yeast Present /HPF Urine Opiates Screen Neg (NEG) Urine Methadone Screen Neg (NEG) Urine Barbiturates Neg (NEG) Urine Phencyclidine Screen Neg (NEG) Urine Amphetamine/Methamphetamine Neg (NEG) Urine Benzodiazepines Screen Neg (NEG) Urine Cocaine Screen Neg (NEG) Urine Cannabinoids Screen Neg (NEG) Urine Ethyl Alcohol Neg (NEG) White Blood Count 15.0 x10^3/uL (4.0-11.0) 12.7 x10^3/uL (4.0-11.0) Red Blood Count 5.32 x10^6/uL (4.30-5.70) 4.47 x10^6/uL (4.30-5.70) Hemoglobin 15.2 g/dL (13.0-17.5) 13.0 g/dL (13.0-17.5) Hematocrit 46.4 % (39.0-53.0) 39.4 % (39.0-53.0) Mean Corpuscular Volume 87 fL (79-100) 88 fL (79-100) Mean Corpuscular Hemoglobin 29 pg (25-35) 29 pg (25-35) Mean Corpuscular Hemoglobin Concent 33 g/dL (31-37) 33 g/dL (31-37) Red Cell Distribution Width 15.4 % (11.5-14.5) 15.3 % (11.5-14.5) Platelet Count 266 x10^3/uL (140-400) 219 x10^3/uL (140-400) Neutrophils (%) (Auto) 89 % (31-73) 66 % (31-73) Lymphocytes (%) (Auto) 8 % (24-48) 21 % (24-48) Monocytes (%) (Auto) 3 % (0-9) 13 % (0-9) Eosinophils (%) (Auto) 0 % (0-3) 0 % (0-3) Basophils (%) (Auto) 0 % (0-3) 0 % (0-3) Neutrophils # (Auto) 13.3 x10^3/uL (1.8-7.7) 8.3 x10^3/uL (1.8-7.7) Lymphocytes # (Auto) 1.1 x10^3/uL (1.0-4.8) 2.7 x10^3/uL (1.0-4.8) Monocytes # (Auto) 0.5 x10^3/uL (0.0-1.1) 1.6 x10^3/uL (0.0-1.1) Eosinophils # (Auto) 0.0 x10^3/uL (0.0-0.7) 0.0 x10^3/uL (0.0-0.7) Basophils # (Auto) 0.0 x10^3/uL (0.0-0.2) 0.0 x10^3/uL (0.0-0.2) Segmented Neutrophils % 85 % (35-66) Band Neutrophils % 1 % (0-9) Lymphocytes % 9 % (24-48) Monocytes % 4 % (0-10) Basophils % 1 % (0-3) Platelet Estimate Adequate (ADEQUATE) Sodium Level 139 mmol/L (136-145) Potassium Level 3.9 mmol/L (3.5-5.1) Chloride Level 98 mmol/L (98-107) Carbon Dioxide Level 27 mmol/L (21-32) Anion Gap 14 (6-14) Blood Urea Nitrogen 11 mg/dL (8-26) Creatinine 0.9 mg/dL (0.7-1.3) Estimated GFR (Cockcroft-Gault) 85.5 BUN/Creatinine Ratio 12 (6-20) Glucose Level 127 mg/dL (70-99) Calcium Level 9.7 mg/dL (8.5-10.1) Magnesium Level 1.8 mg/dL (1.8-2.4) Total Bilirubin 0.3 mg/dL (0.2-1.0) Aspartate Amino Transf (AST/SGOT) 21 U/L (15-37) Alanine Aminotransferase (ALT/SGPT) 23 U/L (16-63) Alkaline Phosphatase 59 U/L (46-116) Troponin I High Sensitivity < 4 ng/L (4-75) 6 ng/L (4-75) OL-[id number]-[id number]-Type Natriuretic Peptide 82 pg/mL (0-124) Total Protein 8.0 g/dL (6.4-8.2) Albumin 4.1 g/dL (3.4-5.0) Albumin/Globulin Ratio 1.1 (1.0-1.7) Lipase 257 U/L (73-393) Glucose (Fingerstick) 104 mg/dL (70-99) Images: Images PROCEDURE: CT ABD PELV W/ IV CONTRST ONLY CT ABDOMEN+PELVIS W History: Abdominal pain. Comparison: Chest x-ray 06/29/2021 Technique: CT of the abdomen and pelvis with intravenous contrast. Findings: Extensive subpleural reticulation/scarring in the lower lungs. Left lower pole 7 mm nodule (axial image 10). Coronary artery calcifications. The liver is unremarkable. Multiple stones within the gallbladder. The pancreas, spleen and adrenal glands are unremarkable. The kidneys are normal. The bladder and prostate are unremarkable. The stomach is unremarkable. The small bowel is not obstructed. No evidence of appendicitis. Prominent stool in the cecum. Moderate diverticulosis. Wall thickening in the partially distended sigmoid colon. Prominent stool at the rectum. No free intraperitoneal air or fluid. Retroaortic left renal vein. Moderate atherosclerosis of the aorta and iliac arteries. No adenopathy. Fat contained within the left inguinal canal. Sclerotic density within the L2 vertebral body most likely represents bone island. No acute osseous abnormality. Impression: 1. Cholelithiasis. 2. Moderate diverticulosis with wall thickening in a segment of the sigmoid colon. This may represent under distention versus mild diverticulitis or colitis. 3. Left lower lobe nodule measuring 7 mm. Recommend follow-up according to 2017 Fleischner Society Guidelines for solid pulmonary nodules: 6-8 mm: In a low risk patient, CT at 6-12 months, then consider CT at 18-24 months. In a high risk patient (history of smoking or other known risk factors), CT at 6-[address] at 18-24 months. 4. Extensive peripheral subpleural bandlike scarring in the bilateral lower lungs. Findings are suspected sequela of prior infection. Correlate with respiratory symptoms. Assessment/Plan Assessment/Plan Acute diverticulitis UTI History of COVID infection with COVID toes Status post amputation Admit to hospitalist for further management Continue IV antibiotics Pending urine cultures Clear liquid diet and advance as tolerated to high-fiber diet Serial abdominal exams Lovenox for DVT prophylaxis Protonix GI prophylaxis ADA diet CODE STATUS full Discussed with RN and SW Disposition inpatient management as above DPOA: Mother Justifications for Admission Other Justification diverticulitis BRIANA MOHR MD October 22, 2021 07:52
[2021-10-22] MEDS: IV NORMAL SALINE 1000ML BAG 1,000 ML IV SCH ×2 (08:13→16:00)
[2021-10-22] MEDS: PANTOPRAZOLE IV PUSH 40 MG VIAL. IVP SCH (08:13)
--- NOTE | 2021-10-22 08:55 | PDOC2 ---
CONSULT Date of Consult Date of Consult DATE: 10/22/21 TIME: 08:52 Reason for Consult Reason for Consult: Abdominal pain Referring Physician Referring Physician: Guy Identification/Chief Complaint Chief Complaint Lower abdominal pain with vomiting Source Source: Chart review, Patient History of Present Illness Reason for Visit: 61-year-old male was admitted to the hospital yesterday for lower abdominal pain and a 24-hour history of vomiting. CT scan of his abdomen shows thickened segment of the sigmoid colon consistent with diverticulitis also had gallstones with no pericholecystic inflammation. Labs showed normal LFTs and bilirubin with a mildly elevated white count and UA consistent with a urinary tract infection. This morning the patient is resting comfortably in bed states he is feeling much better less pain has been having normal bowel movements Past Medical History Cardiovascular: No pertinent hx Pulmonary: No pertinent hx GI: No pertinent hx Heme/Onc: No pertinent hx Hepatobiliary: No pertinent hx Psych: No pertinent hx Rheumatologic: No pertinent hx Infectious disease: No pertinent hx Renal/: No pertinent hx Endocrine: No pertinent hx Past Surgical History Past Surgical History: No pertinent history Family History Family History: Other Social History ALCOHOL: none Drugs: None Current Problem List Problem List Problems Medical Problems: (1) Cholelithiasis Status: Acute (2) Nodule of left lung Status: Acute Current Medications Current Medications Current Medications Fentanyl Citrate (Fentanyl 2ml Vial) 50 mcg PRN Q15MIN PRN IV PAIN GREATER THAN 3/10 Last administered on 10/21/21at 18:55; Start 10/21/21 at 17:30; Stop 10/21/21 at 20:30; Status DC Ondansetron HCl (Zofran) 4 mg 1X ONCE IVP Last administered on 10/21/21at 18:00; Start 10/21/21 at 17:30; Stop 10/21/21 at 17:31; Status DC Famotidine (Pepcid Vial) 20 mg 1X ONCE IVP Last administered on 10/21/21at 18:01; Start 10/21/21 at 17:30; Stop 10/21/21 at 17:31; Status DC Sodium Chloride 1,000 ml @ 1,000 mls/hr 1X ONCE IV Last administered on at 17:54; Start 10/21/21 at 17:30; Stop 10/21/21 at 18:29; Status DC Ceftriaxone Sodium (Rocephin) 1 gm 1X ONCE IVP Last administered on 10/21/21at 18:55; Start 10/21/21 at 18:30; Stop 10/21/21 at 18:31; Status DC Iohexol (Omnipaque 300 Mg/ml) 75 ml 1X ONCE IV Last administered on 10/21/21at 18:47; Start 10/21/21 at 18:30; Stop 10/21/21 at 18:31; Status DC Ondansetron HCl (Zofran) 4 mg PRN Q8HRS PRN IVP NAUSEA/VOMITING; Start 10/21/21 at 19:45; Stop 10/21/21 at 20:03; Status DC Morphine Sulfate (Morphine Sulfate) 4 mg PRN Q2HR PRN IVP PAIN Last administered on 10/21/21at 20:11; Start 10/21/21 at 19:45; Stop 10/22/21 at 19:44 Acetaminophen (Tylenol) 650 mg PRN Q4HRS PRN PO FEVER > 100.3'F; Start 10/21/21 at 19:45; Stop 10/21/21 at 20:02; Status DC Sodium Chloride 1,000 ml @ 100 mls/hr 1X ONCE IV Last administered on 10/21/21at 20:30; Start 10/21/21 at 20:00; Stop 10/22/21 at 05:59; Status DC Ciprofloxacin/ Dextrose 200 ml @ 200 mls/hr 1X ONCE IV Last administered on 10/21/21at 20:11; Start 10/21/21 at 20:00; Stop 10/21/21 at 20:59; Status DC Metronidazole 100 ml @ 100 mls/hr 1X ONCE IV ; Start 10/21/21 at 20:00; Stop 10/21/21 at 20:59; Status DC Metronidazole 100 ml @ 100 mls/hr Q12HR IV Last administered on 10/22/21at 08:13; Start 10/21/21 at 21:00 Cefepime HCl (Maxipime) 1 gm Q12H IVP Last administered on 10/22/21at 08:13; Start 10/22/21 at 09:00 Sennosides (Senna) 17.2 mg PRN BID PRN PO CONSTIPATION; Start 10/21/21 at 19:45 Docusate Sodium (Colace) 100 mg PRN DAILY PRN PO HARD STOOLS; Start 10/21/21 at 19:45 Ondansetron HCl (Zofran) 4 mg PRN Q6HRS PRN IVP NAUSEA/VOMITING, 1st CHOICE; Start 10/21/21 at 19:45 Dextrose (Dextrose 50%-Water Syringe) 12.5 gm PRN Q15MIN PRN IV SEE COMMENTS; Start 10/21/21 at 19:45 Sodium Chloride 1,000 ml @ 100 mls/hr Q10H IV Last administered on 10/22/21at 08:13; Start 10/22/21 at 06:00 Acetaminophen (Tylenol) 650 mg PRN Q4HRS PRN PO TEMP OVER 100.4F OR MILD PAIN; Start 10/21/21 at 19:45 Lorazepam (Ativan) 0.5 mg PRN Q6HRS PRN PO ANXIETY / AGITATION; Start 10/21/21 at 19:45 Lorazepam (Ativan Inj) 0.25 mg PRN Q4HRS PRN IV ANXIETY / AGITATION; Start 10/21/21 at 19:45 Enoxaparin Sodium (Lovenox 40mg Syringe) 40 mg Q24H SQ ; Start 10/21/21 at 21:00 Pantoprazole Sodium (PROTONIX VIAL for IV PUSH) 40 mg DAILYAC IVP Last administered on 10/22/21at 08:13; Start 10/21/21 at 20:30 Oxycodone/ Acetaminophen (Percocet 5/325) 1 tab PRN Q4HRS PRN PO MODERATE PAIN; Start 10/21/21 at 19:45 Oxycodone/ Acetaminophen (Percocet 5/325) 2 tab PRN Q4HRS PRN PO MODERATE TO SEVERE PAIN; Start 10/21/21 at 19:45 Prochlorperazine Edisylate (Compazine) 10 mg PRN Q6HRS PRN IV NAUSEA/VOMITING, 2nd CHOICE; Start 10/21/21 at 19:45 Diphenhydramine HCl (Benadryl) 25 mg PRN Q6HRS PRN IVP ITCHING Last administered on 10/21/21at 23:10; Start 10/21/21 at 19:45 Diphenhydramine HCl (Benadryl) 25 mg PRN Q6HRS PRN PO ITCHING; Start 10/21/21 at 19:45 Diphenhydramine HCl (Benadryl) 25 mg PRN QHS PRN PO INSOMNIA, 1st CHOICE; Start 10/21/21 at 19:45 Zolpidem Tartrate (Ambien) 2.5 mg PRN QHS PRN PO INSOMNIA, 2nd CHOICE; Start 10/21/21 at 19:45 Active Scripts Active Nyamyc (Nystatin) 15 Gm Powder 1 Tree TP BID 7 Days Pantoprazole Sodium (Pantoprazole Sodium) 40 Mg Tablet.dr 40 Mg PO DAILYAC 30 Days Percocet 5-325 Mg Tablet (Oxycodone/Acetaminophen) 1 Each Tablet 2 Tab PO PRN Q4HRS PRN 10 Days Metoprolol Tartrate 25 Mg Tablet 25 Mg PO BID 30 Days Atorvastatin Calcium 20 Mg Tablet 20 Mg PO QHS 30 Days Amox Tr-K Clv 875-125 Mg Tab (Amoxicillin/Potassium Clav) 1 Each Tablet 1 Tab PO BID 10 Days Allergies Allergies: Coded Allergies: No Known Drug Allergies (Unverified , 07/27/21) ROS General: No: Chills, Night Sweats, Fatigue, Malaise, Appetite, Other PSYCHOLOGICAL ROS: No: Anxiety, Behavioral Disorder, Concentration difficultie, Decreased libido, Depression, Disorientation, Hallucinations, Hostility, Irritablity, Memory difficulties, Mood Swings, Obsessive thoughts, Physical abuse, Sexual abuse, Sleep disturbances, Suicidal ideation, Other Eyes: No Blurry vision, No Decreased vision, No Double vision, No Dry eyes, No Excessive tearing, No Eye Pain, No Itchy Eyes, No Loss of vision, No Photophobia, No Scotomata, No Uses contacts, No Uses glasses, No Other HEENT: No: Heacaches, Visual Changes, Hearing change, Nasal congestion, Nasal discharge, Oral lesions, Sinus pain, Sore Throat, Epistaxis, Sneezing, Snoring, Tinnitus, Vertigo, Vocal changes, Other ALLERGY AND IMMUNOLOGY: No: Hives, Insect Bite Sensitivity, Itchy/Watery Eyes, Nasal Congestion, Post Nasal Drip, Seasonal Allergies, Other Hematological and Lymphatic: No: Bleeding Problems, Blood Clots, Blood Transfusions, Brusing, Night Sweats, Pallor, Swollen Lymph Nodes, Other ENDOCRINE: No: Breast Changes, Galactorrhea, Hair Pattern Changes, Hot Flashes, Malaise/lethargy, Mood Swings, Palpitations, Polydipsia/polyuria, Skin Changes, Temperature Intolerance, Unexpected Weight Changes, Other Respiratory: No: Cough, Hemoptysis, Orthopnea, Pleuritic Pain, Shortness of breath, SOB with excertion, Sputum Changes, Stridor, Tachypnea, Wheezing, Other Cardiovascular: No Chest Pain, No Palpitations, No Orthopnea, No Paroxysmal Noc. Dyspnea, No Edema, No Lt Headedness, No Other Gastrointestinal: Yes Vomiting, Yes Abdominal Pain Genitourinary: YES Dysuria Musculoskeletal: No Gait Disturbance, No Joint Pain, No Joint Stiffness, No Joint Swelling, No Muscle Pain, No Muscular Weakness, No Pain In:, No Swelling In:, No Other Neurological: No Behavorial Changes, No Bowel/Bladder ControlChng, No Confusion, No Dizziness, No Gait Disturbance, No Headaches, No Impaired Coord/b alance, No Memory Loss, No Numbness/Tingling, No Seizures, No Speech Problems, No Tremors, No Visual Changes, No Weakness, No Other Skin: No Dry Skin, No Eczema, No Hair Changes, No Lumps, No Mole Changes, No Mottling, No Nail Changes, No Pruritus, No Rash, No Skin Lesion Changes, No Other, No Acne Physical Exam General: Alert, Oriented X3, Cooperative, mild distress HEENT: Atraumatic, EOMI Lungs: Clear to auscultation, Normal air movement Heart: Regular rate, No murmurs Abdomen: Normal bowel sounds, Soft, Other (Tender to palpation left lower quadrant no peritoneal signs) Extremities: No edema Skin: No significant lesion Neuro: Normal speech Psych/Mental Status: Mental status NL Vitals VITALS Vital Signs Date Time Temp Pulse Resp B/P (MAP) Pulse Ox O2 Delivery O2 Flow Rate FiO2 10/22/21 07:00 98.2 74 18 137/86 (103) 97 Room Air 98.2 Labs Labs Laboratory Tests Test 10/21/21 17:45 10/21/21 17:50 10/22/21 01:50 10/22/21 07:22 Urine Collection Type Unknown Urine Color (Auto) Light orange Urine Turbidity Turbid Urine pH (Auto) 8.0 (<5.0-8.0) Urine Specific [place] 1.023 (1.000-1.030) Urine Protein (Auto) 30 mg/dL (Negative) Urine Glucose (Auto)(UA) Negative mg/dL (Negative) Urine Ketones (Auto) Negative mg/dL (Negative) Urine Blood (Auto) Trace (Negative) Urine Nitrite Negative (Negative) Urine Bilirubin (Auto) Negative (Negative) Urine Urobilinogen (Auto) Normal mg/dL (Normal) Urine Leukocyte Esterase (Auto) Large (Negative) Urine RBC 1-2 /HPF (0-2) Urine WBC >40 /HPF (0-4) Urine Amorphous Sediment Present /HPF Urine Bacteria 0 /HPF (0-FEW) Urine Yeast Present /HPF Urine Opiates Screen Neg (NEG) Urine Methadone Screen Neg (NEG) Urine Barbiturates Neg (NEG) Urine Phencyclidine Screen Neg (NEG) Urine Amphetamine/Methamphetamine Neg (NEG) Urine Benzodiazepines Screen Neg (NEG) Urine Cocaine Screen Neg (NEG) Urine Cannabinoids Screen Neg (NEG) Urine Ethyl Alcohol Neg (NEG) White Blood Count 15.0 x10^3/uL (4.0-11.0) 12.7 x10^3/uL (4.0-11.0) Red Blood Count 5.32 x10^6/uL (4.30-5.70) 4.47 x10^6/uL (4.30-5.70) Hemoglobin 15.2 g/dL (13.0-17.5) 13.0 g/dL (13.0-17.5) Hematocrit 46.4 % (39.0-53.0) 39.4 % (39.0-53.0) Mean Corpuscular Volume 87 fL (79-100) 88 fL (79-100) Mean Corpuscular Hemoglobin 29 pg (25-35) 29 pg (25-35) Mean Corpuscular Hemoglobin Concent 33 g/dL (31-37) 33 g/dL (31-37) Red Cell Distribution Width 15.4 % (11.5-14.5) 15.3 % (11.5-14.5) Platelet Count 266 x10^3/uL (140-400) 219 x10^3/uL (140-400) Neutrophils (%) (Auto) 89 % (31-73) 66 % (31-73) Lymphocytes (%) (Auto) 8 % (24-48) 21 % (24-48) Monocytes (%) (Auto) 3 % (0-9) 13 % (0-9) Eosinophils (%) (Auto) 0 % (0-3) 0 % (0-3) Basophils (%) (Auto) 0 % (0-3) 0 % (0-3) Neutrophils # (Auto) 13.3 x10^3/uL (1.8-7.7) 8.3 x10^3/uL (1.8-7.7) Lymphocytes # (Auto) 1.1 x10^3/uL (1.0-4.8) 2.7 x10^3/uL (1.0-4.8) Monocytes # (Auto) 0.5 x10^3/uL (0.0-1.1) 1.6 x10^3/uL (0.0-1.1) Eosinophils # (Auto) 0.0 x10^3/uL (0.0-0.7) 0.0 x10^3/uL (0.0-0.7) Basophils # (Auto) 0.0 x10^3/uL (0.0-0.2) 0.0 x10^3/uL (0.0-0.2) Segmented Neutrophils % 85 % (35-66) Band Neutrophils % 1 % (0-9) Lymphocytes % 9 % (24-48) Monocytes % 4 % (0-10) Basophils % 1 % (0-3) Platelet Estimate Adequate (ADEQUATE) Sodium Level 139 mmol/L (136-145) Potassium Level 3.9 mmol/L (3.5-5.1) Chloride Level 98 mmol/L (98-107) Carbon Dioxide Level 27 mmol/L (21-32) Anion Gap 14 (6-14) Blood Urea Nitrogen 11 mg/dL (8-26) Creatinine 0.9 mg/dL (0.7-1.3) Estimated GFR (Cockcroft-Gault) 85.5 BUN/Creatinine Ratio 12 (6-20) Glucose Level 127 mg/dL (70-99) Calcium Level 9.7 mg/dL (8.5-10.1) Magnesium Level 1.8 mg/dL (1.8-2.4) Total Bilirubin 0.3 mg/dL (0.2-1.0) Aspartate Amino Transf (AST/SGOT) 21 U/L (15-37) Alanine Aminotransferase (ALT/SGPT) 23 U/L (16-63) Alkaline Phosphatase 59 U/L (46-116) Troponin I High Sensitivity < 4 ng/L (4-75) 6 ng/L (4-75) [id number]-Vaq-[id number]-Type Natriuretic Peptide 82 pg/mL (0-124) Total Protein 8.0 g/dL (6.4-8.2) Albumin 4.1 g/dL (3.4-5.0) Albumin/Globulin Ratio 1.1 (1.0-1.7) Lipase 257 U/L (73-393) Glucose (Fingerstick) 104 mg/dL (70-99) Laboratory Tests Test 10/21/21 17:45 10/21/21 17:50 10/22/21 01:50 10/22/21 07:22 Urine Collection Type Unknown Urine Color (Auto) Light orange Urine Turbidity Turbid Urine pH (Auto) 8.0 (<5.0-8.0) Urine Specific [place] 1.023 (1.000-1.030) Urine Protein (Auto) 30 mg/dL (Negative) Urine Glucose (Auto)(UA) Negative mg/dL (Negative) Urine Ketones (Auto) Negative mg/dL (Negative) Urine Blood (Auto) Trace (Negative) Urine Nitrite Negative (Negative) Urine Bilirubin (Auto) Negative (Negative) Urine Urobilinogen (Auto) Normal mg/dL (Normal) Urine Leukocyte Esterase (Auto) Large (Negative) Urine RBC 1-2 /HPF (0-2) Urine WBC >40 /HPF (0-4) Urine Amorphous Sediment Present /HPF Urine Bacteria 0 /HPF (0-FEW) Urine Yeast Present /HPF Urine Opiates Screen Neg (NEG) Urine Methadone Screen Neg (NEG) Urine Barbiturates Neg (NEG) Urine Phencyclidine Screen Neg (NEG) Urine Amphetamine/Methamphetamine Neg (NEG) Urine Benzodiazepines Screen Neg (NEG) Urine Cocaine Screen Neg (NEG) Urine Cannabinoids Screen Neg (NEG) Urine Ethyl Alcohol Neg (NEG) White Blood Count 15.0 x10^3/uL (4.0-11.0) 12.7 x10^3/uL (4.0-11.0) Red Blood Count 5.32 x10^6/uL (4.30-5.70) 4.47 x10^6/uL (4.30-5.70) Hemoglobin 15.2 g/dL (13.0-17.5) 13.0 g/dL (13.0-17.5) Hematocrit 46.4 % (39.0-53.0) 39.4 % (39.0-53.0) Mean Corpuscular Volume 87 fL (79-100) 88 fL (79-100) Mean Corpuscular Hemoglobin 29 pg (25-35) 29 pg (25-35) Mean Corpuscular Hemoglobin Concent 33 g/dL (31-37) 33 g/dL (31-37) Red Cell Distribution Width 15.4 % (11.5-14.5) 15.3 % (11.5-14.5) Platelet Count 266 x10^3/uL (140-400) 219 x10^3/uL (140-400) Neutrophils (%) (Auto) 89 % (31-73) 66 % (31-73) Lymphocytes (%) (Auto) 8 % (24-48) 21 % (24-48) Monocytes (%) (Auto) 3 % (0-9) 13 % (0-9) Eosinophils (%) (Auto) 0 % (0-3) 0 % (0-3) Basophils (%) (Auto) 0 % (0-3) 0 % (0-3) Neutrophils # (Auto) 13.3 x10^3/uL (1.8-7.7) 8.3 x10^3/uL (1.8-7.7) Lymphocytes # (Auto) 1.1 x10^3/uL (1.0-4.8) 2.7 x10^3/uL (1.0-4.8) Monocytes # (Auto) 0.5 x10^3/uL (0.0-1.1) 1.6 x10^3/uL (0.0-1.1) Eosinophils # (Auto) 0.0 x10^3/uL (0.0-0.7) 0.0 x10^3/uL (0.0-0.7) Basophils # (Auto) 0.0 x10^3/uL (0.0-0.2) 0.0 x10^3/uL (0.0-0.2) Segmented Neutrophils % 85 % (35-66) Band Neutrophils % 1 % (0-9) Lymphocytes % 9 % (24-48) Monocytes % 4 % (0-10) Basophils % 1 % (0-3) Platelet Estimate Adequate (ADEQUATE) Sodium Level 139 mmol/L (136-145) Potassium Level 3.9 mmol/L (3.5-5.1) Chloride Level 98 mmol/L (98-107) Carbon Dioxide Level 27 mmol/L (21-32) Anion Gap 14 (6-14) Blood Urea Nitrogen 11 mg/dL (8-26) Creatinine 0.9 mg/dL (0.7-1.3) Estimated GFR (Cockcroft-Gault) 85.5 BUN/Creatinine Ratio 12 (6-20) Glucose Level 127 mg/dL (70-99) Calcium Level 9.7 mg/dL (8.5-10.1) Magnesium Level 1.8 mg/dL (1.8-2.4) Total Bilirubin 0.3 mg/dL (0.2-1.0) Aspartate Amino Transf (AST/SGOT) 21 U/L (15-37) Alanine Aminotransferase (ALT/SGPT) 23 U/L (16-63) Alkaline Phosphatase 59 U/L (46-116) Troponin I High Sensitivity < 4 ng/L (4-75) 6 ng/L (4-75) OA-Abs-V-Type Natriuretic Peptide 82 pg/mL (0-124) Total Protein 8.0 g/dL (6.4-8.2) Albumin 4.1 g/dL (3.4-5.0) Albumin/Globulin Ratio 1.1 (1.0-1.7) Lipase 257 U/L (73-393) Glucose (Fingerstick) 104 mg/dL (70-99) Assessment/Plan Assessment/Plan Diverticulitis currently on IV antibiotics Urinary tract infection currently on antibiotics Cholelithiasis asymptomatic can be addressed electively as an outpatient once resolution of his urinary tract infection and diverticulitis LIVE DANIELLE MD October 22, 2021 08:55
[2021-10-22] MEDS ORDERED: CEFEPIME HCL IV Push 1 GM VIAL. IVP SCH (09:00)
[2021-10-22 11:00] VITALS: BP 139/86
--- NOTE | 2021-10-22 13:01 | PDOC2 ---
CONSULT Date of Consult Date of Consult DATE: 10/22/21 TIME: 13:00 Reason for Consult Reason for Consult: Abdominal pain, diverticulitis History of Present Illness Reason for Visit: This is a 61-year-old gentleman who presents with a new onset of abdominal pain primarily in the periumbilical region and was associated on imaging with diverticulitis. This is a new finding for him. No previous imaging to support whether he has had diverticulosis was noted in the chart but has never had diverticulitis before. He also has gallstones but has no right upper quadrant tenderness or nausea and vomiting. His liver function studies were normal. He is recently been in the hospital with complicated vascular disease requiring right below the knee amputation and some debridement and wound care on his left foot. However during that time he did not have any GI complaints to speak of. He describes a regular bowel pattern without constipation. There have been no changes in his bowel pattern or diet recently that might of precipitated the diverticulitis symptoms. He has never had a colonoscopy. Past Medical History Cardiovascular: No pertinent hx, Other (Peripheral vascular disease) Pulmonary: No pertinent hx GI: No pertinent hx Heme/Onc: No pertinent hx Hepatobiliary: No pertinent hx Psych: No pertinent hx Rheumatologic: No pertinent hx Infectious disease: No pertinent hx Renal/: No pertinent hx Endocrine: No pertinent hx Past Surgical History Past Surgical History: Other (Recent below the knee amputation on the right. Recent debridement of wounds on his left foot.), No pertinent history Family History Family History: Other Social History ALCOHOL: none Drugs: None Current Problem List Problem List Problems Medical Problems: (1) Cholelithiasis Status: Acute (2) Nodule of left lung Status: Acute Current Medications Current Medications Current Medications Fentanyl Citrate (Fentanyl 2ml Vial) 50 mcg PRN Q15MIN PRN IV PAIN GREATER THAN 3/10 Last administered on 10/21/21at 18:55; Start 10/21/21 at 17:30; Stop 10/21/21 at 20:30; Status DC Ondansetron HCl (Zofran) 4 mg 1X ONCE IVP Last administered on 10/21/21at 18:00; Start 10/21/21 at 17:30; Stop 10/21/21 at 17:31; Status DC Famotidine (Pepcid Vial) 20 mg 1X ONCE IVP Last administered on 10/21/21at 18:01; Start 10/21/21 at 17:30; Stop 10/21/21 at 17:31; Status DC Sodium Chloride 1,000 ml @ 1,000 mls/hr 1X ONCE IV Last administered on 10/21/21at 17:54; Start 10/21/21 at 17:30; Stop 10/21/21 at 18:29; Status DC Ceftriaxone Sodium (Rocephin) 1 gm 1X ONCE IVP Last administered on 10/21/21at 18:55; Start 10/21/21 at 18:30; Stop 10/21/21 at 18:31; Status DC Iohexol (Omnipaque 300 Mg/ml) 75 ml 1X ONCE IV Last administered on 10/21/21at 18:47; Start 10/21/21 at 18:30; Stop 10/21/21 at 18:31; Status DC Ondansetron HCl (Zofran) 4 mg PRN Q8HRS PRN IVP NAUSEA/VOMITING; Start 10/21/21 at 19:45; Stop 10/21/21 at 20:03; Status DC Morphine Sulfate (Morphine Sulfate) 4 mg PRN Q2HR PRN IVP PAIN Last administered on 10/21/21at 20:11; Start 10/21/21 at 19:45; Stop 10/22/21 at 19:44 Acetaminophen (Tylenol) 650 mg PRN Q4HRS PRN PO FEVER > 100.3'F; Start 10/21/21 at 19:45; Stop 10/21/21 at 20:02; Status DC Sodium Chloride 1,000 ml @ 100 mls/hr 1X ONCE IV Last administered on 10/21/21at 20:30; Start 10/21/21 at 20:00; Stop 10/22/21 at 05:59; Status DC Ciprofloxacin/ Dextrose 200 ml @ 200 mls/hr 1X ONCE IV Last administered on 10/21/21at 20:11; Start 10/21/21 at 20:00; Stop 10/21/21 at 20:59; Status DC Metronidazole 100 ml @ 100 mls/hr 1X ONCE IV ; Start 10/21/21 at 20:00; Stop 10/21/21 at 20:59; Status DC Metronidazole 100 ml @ 100 mls/hr Q12HR IV Last administered on 10/22/21at 0 8:13; Start 10/21/21 at 21:00 Cefepime HCl (Maxipime) 1 gm Q12H IVP Last administered on 10/22/21at 08:13; Start 10/22/21 at 09:00 Sennosides (Senna) 17.2 mg PRN BID PRN PO CONSTIPATION; Start 10/21/21 at 19:45 Docusate Sodium (Colace) 100 mg PRN DAILY PRN PO HARD STOOLS; Start 10/21/21 at 19:45 Ondansetron HCl (Zofran) 4 mg PRN Q6HRS PRN IVP NAUSEA/VOMITING, 1st CHOICE; Start 10/21/21 at 19:45 Dextrose (Dextrose 50%-Water Syringe) 12.5 gm PRN Q15MIN PRN IV SEE COMMENTS; Start 10/21/21 at 19:45 Sodium Chloride 1,000 ml @ 100 mls/hr Q10H IV Last administered on 10/22/21at 08:13; Start 10/22/21 at 06:00 Acetaminophen (Tylenol) 650 mg PRN Q4HRS PRN PO TEMP OVER 100.4F OR MILD PAIN; Start 10/21/21 at 19:45 Lorazepam (Ativan) 0.5 mg PRN Q6HRS PRN PO ANXIETY / AGITATION; Start 10/21/21 at 19:45 Lorazepam (Ativan Inj) 0.25 mg PRN Q4HRS PRN IV ANXIETY / AGITATION; Start 10/21/21 at 19:45 Enoxaparin Sodium (Lovenox 40mg Syringe) 40 mg Q24H SQ ; Start 10/21/21 at 21:00 Pantoprazole Sodium (PROTONIX VIAL for IV PUSH) 40 mg DAILYAC IVP Last administered on 10/22/21at 08:13; Start 10/21/21 at 20:30 Oxycodone/ Acetaminophen (Percocet 5/325) 1 tab PRN Q4HRS PRN PO MODERATE PAIN; Start 10/21/21 at 19:45 Oxycodone/ Acetaminophen (Percocet 5/325) 2 tab PRN Q4HRS PRN PO MODERATE TO SEVERE PAIN; Start 10/21/21 at 19:45 Prochlorperazine Edisylate (Compazine) 10 mg PRN Q6HRS PRN IV NAUSEA/VOMITING, 2nd CHOICE; Start 10/21/21 at 19:45 Diphenhydramine HCl (Benadryl) 25 mg PRN Q6HRS PRN IVP ITCHING Last administered on 10/21/21at 23:10; Start 10/21/21 at 19:45 Diphenhydramine HCl (Benadryl) 25 mg PRN Q6HRS PRN PO ITCHING; Start 10/21/21 at 19:45 Diphenhydramine HCl (Benadryl) 25 mg PRN QHS PRN PO INSOMNIA, 1st CHOICE; Start 10/21/21 at 19:45 Zolpidem Tartrate (Ambien) 2.5 mg PRN QHS PRN PO INSOMNIA, 2nd CHOICE; Start 10/21/21 at 19:45 Lactobacillus Rhamnosus (Culturelle) 1 cap BID PO ; Start 10/22/21 at 21:00 Active Scripts Active Nyamyc (Nystatin) 15 Gm Powder 1 Tree TP BID 7 Days Pantoprazole Sodium (Pantoprazole Sodium) 40 Mg Tablet.dr 40 Mg PO DAILYAC 30 Days Percocet 5-325 Mg Tablet (Oxycodone/Acetaminophen) 1 Each Tablet 2 Tab PO PRN Q4HRS PRN 10 Days Metoprolol Tartrate 25 Mg Tablet 25 Mg PO BID 30 Days Atorvastatin Calcium 20 Mg Tablet 20 Mg PO QHS 30 Days Amox Tr-K Clv 875-125 Mg Tab (Amoxicillin/Potassium Clav) 1 Each Tablet 1 Tab PO BID 10 Days Allergies Allergies: Coded Allergies: No Known Drug Allergies (Unverified , 07/27/21) Physical Exam General: Alert, Oriented X3, Cooperative HEENT: Atraumatic Lungs: Clear to auscultation Heart: Regular rate, Normal S1, Normal S2 Abdomen: Normal bowel sounds, Soft, No tenderness, No hepatosplenomegaly, No masses Extremities: Other (Left foot in a boot. Right below the knee amputation) Psych/Mental Status: Mental status NL Vitals VITALS Vital Signs Date Time Temp Pulse Resp B/P (MAP) Pulse Ox O2 Delivery O2 Flow Rate FiO2 10/22/21 11:00 98.2 77 16 139/86 (103) 96 Room Air 98.2 Labs Labs Laboratory Tests Test 10/21/21 17:45 10/21/21 17:50 10/22/21 01:50 10/22/21 07:22 Urine Collection Type Unknown Urine Color (Auto) Light orange Urine Turbidity Turbid Urine pH (Auto) 8.0 (<5.0-8.0) Urine Specific [place] 1.023 (1.000-1.030) Urine Protein (Auto) 30 mg/dL (Negative) Urine Glucose (Auto)(UA) Negative mg/dL (Negative) Urine Ketones (Auto) Negative mg/dL (Negative) Urine Blood (Auto) Trace (Negative) Urine Nitrite Negative (Negative) Urine Bilirubin (Auto) Negative (Negative) Urine Urobilinogen (Auto) Normal mg/dL (Normal) Urine Leukocyte Esterase (Auto) Large (Negative) Urine RBC 1-2 /HPF (0-2) Urine WBC >40 /HPF (0-4) Urine Amorphous Sediment Present /HPF Urine Bacteria 0 /HPF (0-FEW) Urine Yeast Present /HPF Urine Opiates Screen Neg (NEG) Urine Methadone Screen Neg (NEG) Urine Barbiturates Neg (NEG) Urine Phencyclidine Screen Neg (NEG) Urine Amphetamine/Methamphetamine Neg (NEG) Urine Benzodiazepines Screen Neg (NEG) Urine Cocaine Screen Neg (NEG) Urine Cannabinoids Screen Neg (NEG) Urine Ethyl Alcohol Neg (NEG) White Blood Count 15.0 x10^3/uL (4.0-11.0) 12.7 x10^3/uL (4.0-11.0) Red Blood Count 5.32 x10^6/uL (4.30-5.70) 4.47 x10^6/uL (4.30-5.70) Hemoglobin 15.2 g/dL (13.0-17.5) 13.0 g/dL (13.0-17.5) Hematocrit 46.4 % (39.0-53.0) 39.4 % (39.0-53.0) Mean Corpuscular Volume 87 fL (79-100) 88 fL (79-100) Mean Corpuscular Hemoglobin 29 pg (25-35) 29 pg (25-35) Mean Corpuscular Hemoglobin Concent 33 g/dL (31-37) 33 g/dL (31-37) Red Cell Distribution Width 15.4 % (11.5-14.5) 15.3 % (11.5-14.5) Platelet Count 266 x10^3/uL (140-400) 219 x10^3/uL (140-400) Neutrophils (%) (Auto) 89 % (31-73) 66 % (31-73) Lymphocytes (%) (Auto) 8 % (24-48) 21 % (24-48) Monocytes (%) (Auto) 3 % (0-9) 13 % (0-9) Eosinophils (%) (Auto) 0 % (0-3) 0 % (0-3) Basophils (%) (Auto) 0 % (0-3) 0 % (0-3) Neutrophils # (Auto) 13.3 x10^3/uL (1.8-7.7) 8.3 x10^3/uL (1.8-7.7) Lymphocytes # (Auto) 1.1 x10^3/uL (1.0-4.8) 2.7 x10^3/uL (1.0-4.8) Monocytes # (Auto) 0.5 x10^3/uL (0.0-1.1) 1.6 x10^3/uL (0.0-1.1) Eosinophils # (Auto) 0.0 x10^3/uL (0.0-0.7) 0.0 x10^3/uL (0.0-0.7) Basophils # (Auto) 0.0 x10^3/uL (0.0-0.2) 0.0 x10^3/uL (0.0-0.2) Segmented Neutrophils % 85 % (35-66) Band Neutrophils % 1 % (0-9) Lymphocytes % 9 % (24-48) Monocytes % 4 % (0-10) Basophils % 1 % (0-3) Platelet Estimate Adequate (ADEQUATE) Sodium Level 139 mmol/L (136-145) Potassium Level 3.9 mmol/L (3.5-5.1) Chloride Level 98 mmol/L (98-107) Carbon Dioxide Level 27 mmol/L (21-32) Anion Gap 14 (6-14) Blood Urea Nitrogen 11 mg/dL (8-26) Creatinine 0.9 mg/dL (0.7-1.3) Estimated GFR (Cockcroft-Gault) 85.5 BUN/Creatinine Ratio 12 (6-20) Glucose Level 127 mg/dL (70-99) Calcium Level 9.7 mg/dL (8.5-10.1) Magnesium Level 1.8 mg/dL (1.8-2.4) Total Bilirubin 0.3 mg/dL (0.2-1.0) Aspartate Amino Transf (AST/SGOT) 21 U/L (15-37) Alanine Aminotransferase (ALT/SGPT) 23 U/L (16-63) Alkaline Phosphatase 59 U/L (46-116) Troponin I High Sensitivity < 4 ng/L (4-75) 6 ng/L (4-75) RK-Cmn-K-Type Natriuretic Peptide 82 pg/mL (0-124) Total Protein 8.0 g/dL (6.4-8.2) Albumin 4.1 g/dL (3.4-5.0) Albumin/Globulin Ratio 1.1 (1.0-1.7) Lipase 257 U/L (73-393) Glucose (Fingerstick) 104 mg/dL (70-99) Laboratory Tests Test 10/21/21 17:45 10/21/21 17:50 10/22/21 01:50 10/22/21 07:22 Urine Collection Type Unknown Urine Color (Auto) Light orange Urine Turbidity Turbid Urine pH (Auto) 8.0 (<5.0-8.0) Urine Specific [place] 1.023 (1.000-1.030) Urine Protein (Auto) 30 mg/dL (Negative) Urine Glucose (Auto)(UA) Negative mg/dL (Negative) Urine Ketones (Auto) Negative mg/dL (Negative) Urine Blood (Auto) Trace (Negative) Urine Nitrite Negative (Negative) Urine Bilirubin (Auto) Negative (Negative) Urine Urobilinogen (Auto) Normal mg/dL (Normal) Urine Leukocyte Esterase (Auto) Large (Negative) Urine RBC 1-2 /HPF (0-2) Urine WBC >40 /HPF (0-4) Urine Amorphous Sediment Present /HPF Urine Bacteria 0 /HPF (0-FEW) Urine Yeast Present /HPF Urine Opiates Screen Neg (NEG) Urine Methadone Screen Neg (NEG) Urine Barbiturates Neg (NEG) Urine Phencyclidine Screen Neg (NEG) Urine Amphetamine/Methamphetamine Neg (NEG) Urine Benzodiazepines Screen Neg (NEG) Urine Cocaine Screen Neg (NEG) Urine Cannabinoids Screen Neg (NEG) Urine Ethyl Alcohol Neg (NEG) White Blood Count 15.0 x10^3/uL (4.0-11.0) 12.7 x10^3/uL (4.0-11.0) Red Blood Count 5.32 x10^6/uL (4.30-5.70) 4.47 x10^6/uL (4.30-5.70) Hemoglobin 15.2 g/dL (13.0-17.5) 13.0 g/dL (13.0-17.5) Hematocrit 46.4 % (39.0-53.0) 39.4 % (39.0-53.0) Mean Corpuscular Volume 87 fL (79-100) 88 fL (79-100) Mean Corpuscular Hemoglobin 29 pg (25-35) 29 pg (25-35) Mean Corpuscular Hemoglobin Concent 33 g/dL (31-37) 33 g/dL (31-37) Red Cell Distribution Width 15.4 % (11.5-14.5) 15.3 % (11.5-14.5) Platelet Count 266 x10^3/uL (140-400) 219 x10^3/uL (140-400) Neutrophils (%) (Auto) 89 % (31-73) 66 % (31-73) Lymphocytes (%) (Auto) 8 % (24-48) 21 % (24-48) Monocytes (%) (Auto) 3 % (0-9) 13 % (0-9) Eosinophils (%) (Auto) 0 % (0-3) 0 % (0-3) Basophils (%) (Auto) 0 % (0-3) 0 % (0-3) Neutrophils # (Auto) 13.3 x10^3/uL (1.8-7.7) 8.3 x10^3/uL (1.8-7.7) Lymphocytes # (Auto) 1.1 x10^3/uL (1.0-4.8) 2.7 x10^3/uL (1.0-4.8) Monocytes # (Auto) 0.5 x10^3/uL (0.0-1.1) 1.6 x10^3/uL (0.0-1.1) Eosinophils # (Auto) 0.0 x10^3/uL (0.0-0.7) 0.0 x10^3/uL (0.0-0.7) Basophils # (Auto) 0.0 x10^3/uL (0.0-0.2) 0.0 x10^3/uL (0.0-0.2) Segmented Neutrophils % 85 % (35-66) Band Neutrophils % 1 % (0-9) Lymphocytes % 9 % (24-48) Monocytes % 4 % (0-10) Basophils % 1 % (0-3) Platelet Estimate Adequate (ADEQUATE) Sodium Level 139 mmol/L (136-145) Potassium Level 3.9 mmol/L (3.5-5.1) Chloride Level 98 mmol/L (98-107) Carbon Dioxide Level 27 mmol/L (21-32) Anion Gap 14 (6-14) Blood Urea Nitrogen 11 mg/dL (8-26) Creatinine 0.9 mg/dL (0.7-1.3) Estimated GFR (Cockcroft-Gault) 85.5 BUN/Creatinine Ratio 12 (6-20) Glucose Level 127 mg/dL (70-99) Calcium Level 9.7 mg/dL (8.5-10.1) Magnesium Level 1.8 mg/dL (1.8-2.4) Total Bilirubin 0.3 mg/dL (0.2-1.0) Aspartate Amino Transf (AST/SGOT) 21 U/L (15-37) Alanine Aminotransferase (ALT/SGPT) 23 U/L (16-63) Alkaline Phosphatase 59 U/L (46-116) Troponin I High Sensitivity < 4 ng/L (4-75) 6 ng/L (4-75) SP-Sce-O-Type Natriuretic Peptide 82 pg/mL (0-124) Total Protein 8.0 g/dL (6.4-8.2) Albumin 4.1 g/dL (3.4-5.0) Albumin/Globulin Ratio 1.1 (1.0-1.7) Lipase 257 U/L (73-393) Glucose (Fingerstick) 104 mg/dL (70-99) Images Images CT ABDOMEN+PELVIS W History: Abdominal pain. Comparison: Chest x-ray 06/29/2021 Technique: CT of the abdomen and pelvis with intravenous contrast. Findings: Extensive subpleural reticulation/scarring in the lower lungs. Left lower pole 7 mm nodule (axial image 10). Coronary artery calcifications. The liver is unremarkable. Multiple stones within the gallbladder. The pancreas, spleen and adrenal glands are unremarkable. The kidneys are normal. The bladder and prostate are unremarkable. The stomach is unremarkable. The small bowel is not obstructed. No evidence of appendicitis. Prominent stool in the cecum. Moderate diverticulosis. Wall thickening in the partially distended sigmoid colon. Prominent stool at the rectum. No free intraperitoneal air or fluid. Retroaortic left renal vein. Moderate atherosclerosis of the aorta and iliac arteries. No adenopathy. Fat contained within the left inguinal canal. Sclerotic density within the L2 vertebral body most likely represents bone island. No acute osseous abnormality. Impression: 1. Cholelithiasis. 2. Moderate diverticulosis with wall thickening in a segment of the sigmoid colon. This may represent under distention versus mild diverticulitis or co litis. 3. Left lower lobe nodule measuring 7 mm. Recommend follow-up according to 2017 Fleischner Society Guidelines for solid pulmonary nodules: 6-8 mm: In a low risk patient, CT at 6-12 months, then consider CT at 18-24 months. In a high risk patient (history of smoking or other known risk factors), CT at 6-[address] at 18-24 months. 4. Extensive peripheral subpleural bandlike scarring in the bilateral lower lungs. Findings are suspected sequela of prior infection. Correlate with respiratory symptoms. Assessment/Plan Assessment/Plan Diverticulitis on CT scan. Curiously his pain is more centrally oriented and he does not have any tenderness in the left lower quadrant. The amount of inflammation on the CT scan is minimal. He does have cholelithiasis but has no right upper quadrant tenderness or liver function test abnormalities. Also has no nausea or vomiting or other typical biliary symptoms. He has never had diverticulitis before and was not aware he had diverticulosis. He is also never had a colonoscopy. Asymptomatic cholelithiasis Severe peripheral vascular disease status post right below the knee amputation and wound debridement on his left foot Plan: IV then oral antibiotics for his presumed diverticulitis A liquid and soft diet would be appropriate and early discharge if he is tolerating diet and antibiotics. Since he does not have any constipation with his pain medicines which he is taking for his peripheral vascular disease, I am okay with continuing those but reminded him to monitor for development of constipation symptoms which would likely precipitate more diverticular problems. Elective screening colonoscopy in the next month is recommended. BLANKA LOZOYA MD October 22, 2021 13:01
[2021-10-22 15:00] VITALS: BP 125/76
[2021-10-22 19:00] VITALS: BP 122/76
[2021-10-22] MEDS: CIPROFLOXACIN HCL 250 MG TABLET. PO SCH (20:46)
[2021-10-22] MEDS: metroNIDAZOLE 500 MG TABLET PO SCH (20:46)
[2021-10-22] MEDS: ENOXAPARIN 40 MG/0.4 ML SYRINGE. SQ SCH (20:46)
[2021-10-22] MEDS: LACTOBACILLUS RHAMNOSUS GG 1 CAPSULE. PO SCH (20:46)
[2021-10-22 23:00] VITALS: BP 109/68
[2021-10-23 03:00] VITALS: BP 115/69
[2021-10-23 05:33] LABS: BASO # 0.1 x10^3/uL (0.0-0.2); BASO % 1 % (0-3); EOS # 0.3 x10^3/uL (0.0-0.7); EOS % 3 % (0-3); HEMATOCRIT 37.3 % (39.0-53.0); HEMOGLOBIN 12.3 g/dL (13.0-17.5); LYMPH # 2.4 x10^3/uL (1.0-4.8); LYMPH % 32 % (24-48); MEAN CORPUSCULAR HEMOGLOBIN 29 pg (25-35); MEAN CORPUSCULAR HGB CONC 33 g/dL (31-37); MEAN CORPUSCULAR VOLUME 88 fL (79-100); MONO # 0.8 x10^3/uL (0.0-1.1); MONO % 10 % (0-9); NEUT % 53 % (31-73); PLATELET COUNT 174 x10^3/uL (140-400); RED BLOOD COUNT 4.23 x10^6/uL (4.30-5.70); RED CELL DISTRIBUTION WIDTH 15.5 % (11.5-14.5); WHITE BLOOD COUNT 7.5 x10^3/uL (4.0-11.0)
[2021-10-23 06:04] LABS: CALCIUM 8.7 mg/dL (8.5-10.1); CREATININE 0.8 mg/dL (0.7-1.3); MAGNESIUM 1.8 mg/dL (1.8-2.4); POTASSIUM 3.5 mmol/L (3.5-5.1)
[2021-10-23 07:00] VITALS: BP 133/77
[2021-10-23] MEDS: IV NORMAL SALINE 1000ML BAG 1,000 ML IV SCH ×2 (08:37→12:00)
[2021-10-23] MEDS: metroNIDAZOLE 500 MG TABLET PO SCH (08:37)
[2021-10-23] MEDS: PANTOPRAZOLE IV PUSH 40 MG VIAL. IVP SCH (08:37)
[2021-10-23] MEDS: CIPROFLOXACIN HCL 250 MG TABLET. PO SCH (08:37)
[2021-10-23] MEDS: LACTOBACILLUS RHAMNOSUS GG 1 CAPSULE. PO SCH (08:37)
--- NOTE | 2021-10-23 08:38 | PDOC ---
SURGICAL PROGRESS NOTE DATE: 10/23/21 TIME: 08:37 Subjective tolerating diet no n/v no current abdominal pain ROS no fevers, chills no SOA, cough No cp, palpations Vital Signs Vital Signs Date Time Temp Pulse Resp B/P (MAP) Pulse Ox O2 Delivery O2 Flow Rate FiO2 10/23/21 07:00 97.9 71 18 133/77 (95) 96 Room Air 97.9 I&O Intake and Output 10/23/21 07:00 Intake Total 120 ml Output Total 850 ml Balance -730 ml Intake Oral 120 ml Output Urine Total 850 ml # Voids 1 General: Alert, Oriented X3, Cooperative HEENT: PERRLA, Mucous membr. moist/pink Lungs: Clear to auscultation, Normal air movement Heart: Regular rate, Normal S1, Normal S2 Abdomen: Soft, No tenderness Labs Laboratory Tests Test 10/21/21 17:45 10/21/21 17:50 10/22/21 01:50 10/22/21 07:22 Urine Collection Type Unknown Urine Color (Auto) Light orange Urine Turbidity Turbid Urine pH (Auto) 8.0 (<5.0-8.0) Urine Specific [place] 1.023 (1.000-1.030) Urine Protein (Auto) 30 mg/dL (Negative) Urine Glucose (Auto)(UA) Negative mg/dL (Negative) Urine Ketones (Auto) Negative mg/dL (Negative) Urine Blood (Auto) Trace (Negative) Urine Nitrite Negative (Negative) Urine Bilirubin (Auto) Negative (Negative) Urine Urobilinogen (Auto) Normal mg/dL (Normal) Urine Leukocyte Esterase (Auto) Large (Negative) Urine RBC 1-2 /HPF (0-2) Urine WBC >40 /HPF (0-4) Urine Amorphous Sediment Present /HPF Urine Bacteria 0 /HPF (0-FEW) Urine Yeast Present /HPF Urine Opiates Screen Neg (NEG) Urine Methadone Screen Neg (NEG) Urine Barbiturates Neg (NEG) Urine Phencyclidine Screen Neg (NEG) Urine Amphetamine/Methamphetamine Neg (NEG) Urine Benzodiazepines Screen Neg (NEG) Urine Cocaine Screen Neg (NEG) Urine Cannabinoids Screen Neg (NEG) Urine Ethyl Alcohol Neg (NEG) White Blood Count 15.0 x10^3/uL (4.0-11.0) 12.7 x10^3/uL (4.0-11.0) Red Blood Count 5.32 x10^6/uL (4.30-5.70) 4.47 x10^6/uL (4.30-5.70) Hemoglobin 15.2 g/dL (13.0-17.5) 13.0 g/dL (13.0-17.5) Hematocrit 46.4 % (39.0-53.0) 39.4 % (39.0-53.0) Mean Corpuscular Volume 87 fL (79-100) 88 fL (79-100) Mean Corpuscular Hemoglobin 29 pg (25-35) 29 pg (25-35) Mean Corpuscular Hemoglobin Concent 33 g/dL (31-37) 33 g/dL (31-37) Red Cell Distribution Width 15.4 % (11.5-14.5) 15.3 % (11.5-14.5) Platelet Count 266 x10^3/uL (140-400) 219 x10^3/uL (140-400) Neutrophils (%) (Auto) 89 % (31-73) 66 % (31-73) Lymphocytes (%) (Auto) 8 % (24-48) 21 % (24-48) Monocytes (%) (Auto) 3 % (0-9) 13 % (0-9) Eosinophils (%) (Auto) 0 % (0-3) 0 % (0-3) Basophils (%) (Auto) 0 % (0-3) 0 % (0-3) Neutrophils # (Auto) 13.3 x10^3/uL (1.8-7.7) 8.3 x10^3/uL (1.8-7.7) Lymphocytes # (Auto) 1.1 x10^3/uL (1.0-4.8) 2.7 x10^3/uL (1.0-4.8) Monocytes # (Auto) 0.5 x10^3/uL (0.0-1.1) 1.6 x10^3/uL (0.0-1.1) Eosinophils # (Auto) 0.0 x10^3/uL (0.0-0.7) 0.0 x10^3/uL (0.0-0.7) Basophils # (Auto) 0.0 x10^3/uL (0.0-0.2) 0.0 x10^3/uL (0.0-0.2) Segmented Neutrophils % 85 % (35-66) Band Neutrophils % 1 % (0-9) Lymphocytes % 9 % (24-48) Monocytes % 4 % (0-10) Basophils % 1 % (0-3) Platelet Estimate Adequate (ADEQUATE) Sodium Level 139 mmol/L (136-145) Potassium Level 3.9 mmol/L (3.5-5.1) Chloride Level 98 mmol/L (98-107) Carbon Dioxide Level 27 mmol/L (21-32) Anion Gap 14 (6-14) Blood Urea Nitrogen 11 mg/dL (8-26) Creatinine 0.9 mg/dL (0.7-1.3) Estimated GFR (Cockcroft-Gault) 85.5 BUN/Creatinine Ratio 12 (6-20) Glucose Level 127 mg/dL (70-99) Calcium Level 9.7 mg/dL (8.5-10.1) Magnesium Level 1.8 mg/dL (1.8-2.4) Total Bilirubin 0.3 mg/dL (0.2-1.0) Aspartate Amino Transf (AST/SGOT) 21 U/L (15-37) Alanine Aminotransferase (ALT/SGPT) 23 U/L (16-63) Alkaline Phosphatase 59 U/L (46-116) Troponin I High Sensitivity < 4 ng/L (4-75) 6 ng/L (4-75) GD-Akl-N-Type Natriuretic Peptide 82 pg/mL (0-124) Total Protein 8.0 g/dL (6.4-8.2) Albumin 4.1 g/dL (3.4-5.0) Albumin/Globulin Ratio 1.1 (1.0-1.7) Lipase 257 U/L (73-393) Glucose (Fingerstick) 104 mg/dL (70-99) Test 10/23/21 05:05 White Blood Count 7.5 x10^3/uL (4.0-11.0) Red Blood Count 4.23 x10^6/uL (4.30-5.70) Hemoglobin 12.3 g/dL (13.0-17.5) Hematocrit 37.3 % (39.0-53.0) Mean Corpuscular Volume 88 fL (79-100) Mean Corpuscular Hemoglobin 29 pg (25-35) Mean Corpuscular Hemoglobin Concent 33 g/dL (31-37) Red Cell Distribution Width 15.5 % (11.5-14.5) Platelet Count 174 x10^3/uL (140-400) Neutrophils (%) (Auto) 53 % (31-73) Lymphocytes (%) (Auto) 32 % (24-48) Monocytes (%) (Auto) 10 % (0-9) Eosinophils (%) (Auto) 3 % (0-3) Basophils (%) (Auto) 1 % (0-3) Neutrophils # (Auto) 4.0 x10^3/uL (1.8-7.7) Lymphocytes # (Auto) 2.4 x10^3/uL (1.0-4.8) Monocytes # (Auto) 0.8 x10^3/uL (0.0-1.1) Eosinophils # (Auto) 0.3 x10^3/uL (0.0-0.7) Basophils # (Auto) 0.1 x10^3/uL (0.0-0.2) Sodium Level 142 mmol/L (136-145) Potassium Level 3.5 mmol/L (3.5-5.1) Chloride Level 106 mmol/L (98-107) Carbon Dioxide Level 26 mmol/L (21-32) Anion Gap 10 (6-14) Blood Urea Nitrogen 8 mg/dL (8-26) Creatinine 0.8 mg/dL (0.7-1.3) Estimated GFR (Cockcroft-Gault) 98.0 Glucose Level 95 mg/dL (70-99) Calcium Level 8.7 mg/dL (8.5-10.1) Magnesium Level 1.8 mg/dL (1.8-2.4) Laboratory Tests Test 10/23/21 05:05 White Blood Count 7.5 x10^3/uL (4.0-11.0) Red Blood Count 4.23 x10^6/uL (4.30-5.70) Hemoglobin 12.3 g/dL (13.0-17.5) Hematocrit 37.3 % (39.0-53.0) Mean Corpuscular Volume 88 fL (79-100) Mean Corpuscular Hemoglobin 29 pg (25-35) Mean Corpuscular Hemoglobin Concent 33 g/dL (31-37) Red Cell Distribution Width 15.5 % (11.5-14.5) Platelet Count 174 x10^3/uL (140-400) Neutrophils (%) (Auto) 53 % (31-73) Lymphocytes (%) (Auto) 32 % (24-48) Monocytes (%) (Auto) 10 % (0-9) Eosinophils (%) (Auto) 3 % (0-3) Basophils (%) (Auto) 1 % (0-3) Neutrophils # (Auto) 4.0 x10^3/uL (1.8-7.7) Lymphocytes # (Auto) 2.4 x10^3/uL (1.0-4.8) Monocytes # (Auto) 0.8 x10^3/uL (0.0-1.1) Eosinophils # (Auto) 0.3 x10^3/uL (0.0-0.7) Basophils # (Auto) 0.1 x10^3/uL (0.0-0.2) Sodium Level 142 mmol/L (136-145) Potassium Level 3.5 mmol/L (3.5-5.1) Chloride Level 106 mmol/L (98-107) Carbon Dioxide Level 26 mmol/L (21-32) Anion Gap 10 (6-14) Blood Urea Nitrogen 8 mg/dL (8-26) Creatinine 0.8 mg/dL (0.7-1.3) Estimated GFR (Cockcroft-Gault) 98.0 Glucose Level 95 mg/dL (70-99) Calcium Level 8.7 mg/dL (8.5-10.1) Magnesium Level 1.8 mg/dL (1.8-2.4) Problem List Problems Medical Problems: (1) Cholelithiasis Status: Acute (2) Nodule of left lung Status: Acute Assessment/Plan improving medical therapy Justicifation of Admission Dx: Justifications for Admission: Justification of Admission Dx: LEONARD Reed TRIP FOLLOWER October 23, 2021 08:38
--- NOTE | 2021-10-23 09:28 | PDOC ---
Date of Service: DATE: 10/23/21 TIME: 09:23 Subjective: Subjective: Doing better, pain improved. Tolerating diet but hasn't eaten yet this morning because he had a headache. Just had a hard stool on bedpan. I asked about previous colonoscopy - "they've asked me that three times already!" (No previous colonoscopy.) Objective: Objective: D/w nurse - no GI complaints. Vital Signs: Vital Signs Date Time Temp Pulse Resp B/P (MAP) Pulse Ox O2 Delivery O2 Flow Rate FiO2 10/23/21 07:00 97.9 71 18 133/77 (95) 96 Room Air 97.9 Labs: Laboratory Tests Test 10/23/21 05:05 White Blood Count 7.5 x10^3/uL Red Blood Count 4.23 x10^6/uL Hemoglobin 12.3 g/dL Hematocrit 37.3 % Mean Corpuscular Volume 88 fL Mean Corpuscular Hemoglobin 29 pg Mean Corpuscular Hemoglobin Concent 33 g/dL Red Cell Distribution Width 15.5 % Platelet Count 174 x10^3/uL Neutrophils (%) (Auto) 53 % Lymphocytes (%) (Auto) 32 % Monocytes (%) (Auto) 10 % Eosinophils (%) (Auto) 3 % Basophils (%) (Auto) 1 % Neutrophils # (Auto) 4.0 x10^3/uL Lymphocytes # (Auto) 2.4 x10^3/uL Monocytes # (Auto) 0.8 x10^3/uL Eosinophils # (Auto) 0.3 x10^3/uL Basophils # (Auto) 0.1 x10^3/uL Sodium Level 142 mmol/L Potassium Level 3.5 mmol/L Chloride Level 106 mmol/L Carbon Dioxide Level 26 mmol/L Anion Gap 10 Blood Urea Nitrogen 8 mg/dL Creatinine 0.8 mg/dL Estimated GFR (Cockcroft-Gault) 98.0 Glucose Level 95 mg/dL Calcium Level 8.7 mg/dL Magnesium Level 1.8 mg/dL Imaging: CT A/P 10/21 Impression: 1. Cholelithiasis. 2. Moderate diverticulosis with wall thickening in a segment of the sigmoid colon. This may represent under distention versus mild diverticulitis or colitis. 3. Left lower lobe nodule measuring 7 mm. Recommend follow-up according to 2017 Fleischner Society Guidelines for solid pulmonary nodules: 6-8 mm: In a low risk patient, CT at 6-12 months, then consider CT at 18-24 months. In a high risk patient (history of smoking or other known risk factors), CT at 6-[address] at 18-24 months. 4. Extensive peripheral subpleural bandlike scarring in the bilateral lower lungs. Findings are suspected sequela of prior infection. Correlate with respiratory symptoms. PE: GEN: NAD LUNGS: CTAB HEART: RRR ABD: S/ND/NT EXTREM: RLE brace NEURO/PSYCH: A & O 3 A/P: Diverticulitis Cholelithiasis CRC screen - none PVD s/p RBKA, left wound debridement -- Tolerating regular diet, pain improved, on PO atbx. DC per primary. F/u for colonoscopy - we'll call to schedule. Justicifation of Admission Dx: Justifications for Admission: Justification of Admission Dx: No PATRICK PEÑALOZA October 23, 2021 09:28
--- NOTE | 2021-10-23 10:00 | NUR ---
Wound/Ostomy Care Wound Type/Assessment: Patient is currently being followed by WC team in outpatient department on a weekly basis. Dressing reomved, wound cleansed, assessed and redressed. Patient is currently on a vacation from his wound vac. We will reassess wound on in OP dept. Treatment Recommendations/Plan: Cleanse wound, apply hydrofera blue and foam dressing, change every 3 days. Education provided: WC POC and PU prevention Offloading surface/device: TQ2H, float heels Recommended Referrals/Tests: na Discharge Recommendations for dressings: see above
[2021-10-23 11:00] VITALS: BP 151/84
[2021-10-23] MEDS ORDERED: CIPR250T30 PO (12:16)
[2021-10-23] MEDS ORDERED: METR-34 PO (12:16)
--- NOTE | 2021-10-23 12:29 | SNU/HH DC ---
DISCHARGE WITH HOME HEALTH DISCHARGE INFORMATION: Discharge Date: October 23, 2021 Final Diagnosis: Problems Medical Problems: (1) Cholelithiasis Status: Acute (2) Nodule of left lung Status: Acute Condition on Discharge: Stable CODE STATUS: Code Status: Full HOME HEALTH: Face to Face: I certify this patient is under my care and that I, or a nurse practitioner or physician's social service assistant working with me, had a face to face encounter that meets the physician face to face encounter requirements with this patient on []. RN For Eval/Treatment: Yes Physical Therapy For: Evalulation/Treatment Occupational Therapy For: Evaluation/Treatment Pt Meets Homebound Status: Poor coordination w/ amb., Unsteady balance w/ amb,, Extreme weakness w/ amb. POST DISCHARGE ORDERS: DIET AFTER DISCHARGE: Cardiac CERTIFICATION STATEMENT: Certification Statement: Certification Statement: Based on the above finding, I certify that this patient is confined to the home and needs intermittent halfway care, physical therapy and/or speech therapy, or continues to need occupational therapy.~ This patient is under my care, and I have initiated the establishment of the plan of care.~ This patient will be followed by myself or a community physician who will periodically review the plan of care. Home Meds Active Scripts Metronidazole (METRONIDAZOLE) 500 Mg Tablet, 500 MG PO Q12HR for diverticulitis for 10 Days, #20 TAB Prov:SIMONE COOPER MD 10/23/21 Ciprofloxacin Hcl (CIPRO) 250 Mg Tablet, 500 MG PO BID for diverticulitis for 10 Days, #40 TAB Prov:SIMONE COOPER MD 10/23/21 Nystatin (NYAMYC) 15 Gm Powder, 1 NIECY TP BID for . for 7 Days, #1 MISC Prov:CASTLENIAL K III DO 09/19/21 Pantoprazole Sodium (PANTOPRAZOLE SODIUM ) 40 Mg Tablet.dr, 40 MG PO DAILYAC for . for 30 Days, #30 TAB.SR Prov:CASTLE,NIAL K III DO 09/19/21 Oxycodone/Apap 5-325 (PERCOCET 5-325 MG TABLET ) 1 Each Tablet, 2 TAB PO PRN Q4HRS PRN for SEVERE PAIN for 10 Days, #20 TAB Prov:CASTLE,NIAL K III DO 09/19/21 Metoprolol Tartrate (METOPROLOL TARTRATE) 25 Mg Tablet, 25 MG PO BID for . for 30 Days, #60 TAB Prov:CASTLE,NIAL K III DO 09/19/21 Atorvastatin Calcium (ATORVASTATIN CALCIUM) 20 Mg Tablet, 20 MG PO QHS for . for 30 Days, #30 TAB Prov:GRADYNIAL K III DO 09/19/21 Discontinued Scripts Amoxicillin/Potassium Clav (AMOX TR-K CLV 875-125 MG TAB) 1 Each Tablet, 1 TAB PO BID for . for 10 Days, #20 TAB Prov:GERDA RASMUSSEN K III DO 09/19/21 SIMONE COOPER MD October 23, 2021 12:29
--- NOTE | 2021-10-23 14:50 | NUR ---
pt discharged home with orders to continue home health. instructions reviewed with pt verbalized understanding. no other needs. pt transported off unit with [facility] in wheelchair with all belongings.
--- NOTE | 2021-10-23 15:48 | PDOC3 ---
[facility]-Discharge Summary Date of Admission: Date of Admission: Oct 21, 2021 Date of Discharge: Date of Discharge: October 23, 2021 Admission Diagnosis: Admitting Diagnosis: diverticulitis Consults: Consults: GI, surg Hospital Course: Hospital Course: Chief Complaint Acute diverticulitis UTI History of COVID infection with COVID toes Status post amputation Asymptomatic cholelithiasis Admit to hospitalist for further management Continue IV antibiotics Pending urine cultures Clear liquid diet and advance as tolerated to high-fiber diet Serial abdominal exams Lovenox for DVT prophylaxis Protonix GI prophylaxis ADA diet CODE STATUS full Discussed with RN and SW Disposition inpatient management as above DPOA: Mother History of Present Illness History of Present Illness 61 year old male with 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 Patient denies anything specifically exacerbating or relieving the pain. Describes the pain as sharp and intermittent. Denies any fever. 10/22/2021 No acute events overnight. Patient seen examined bedside. Abdominal pain much improved. Denies any dysuria. AF and VSS. Patient's chart, labs, images were reviewed and discussed with RN 5/2 Seen and examined at bedside. Doing well no complaints to me. Tolerating diet. Okay to discharge today. Pain controlled. Greater than 30 minutes spent on this discharge. Discussed with bedside RN. Disposition: Disposition/Orders: D/C to Home w/ HH Activity: Activity: Resume previous activity Diet: Diet: Regular Medications: Home Meds Active Scripts Metronidazole (METRONIDAZOLE) 500 Mg Tablet, 500 MG PO Q12HR for diverticulitis for 10 Days, #20 TAB Prov:SIMONE COOPER MD 10/23/21 Ciprofloxacin Hcl (CIPRO) 250 Mg Tablet, 500 MG PO BID for diverticulitis for 10 Days, #40 TAB Prov:SIMONE COOPER MD 10/23/21 Nystatin (NYAMYC) 15 Gm Powder, 1 NIECY TP BID for . for 7 Days, #1 MISC Prov:CASTLE,NIAL K III DO 09/19/21 Pantoprazole Sodium (PANTOPRAZOLE SODIUM ) 40 Mg Tablet.dr, 40 MG PO DAILYAC for . for 30 Days, #30 TAB.SR Prov:CASTLE,NIAL K III DO 09/19/21 Oxycodone/Apap 5-325 (PERCOCET 5-325 MG TABLET ) 1 Each Tablet, 2 TAB PO PRN Q4HRS PRN for SEVERE PAIN for 10 Days, #20 TAB Prov:GRADYNIAL K III DO 09/19/21 Metoprolol Tartrate (METOPROLOL TARTRATE) 25 Mg Tablet, 25 MG PO BID for . for 30 Days, #60 TAB Prov:CASTLENIAL K III DO 09/19/21 Atorvastatin Calcium (ATORVASTATIN CALCIUM) 20 Mg Tablet, 20 MG PO QHS for . for 30 Days, #30 TAB Prov:CASTFARIDANIAL K III DO 09/19/21 Discontinued Scripts Amoxicillin/Potassium Clav (AMOX TR-K CLV 875-125 MG TAB) 1 Each Tablet, 1 TAB PO BID for . for 10 Days, #20 TAB Prov:GRADYNIAL K III DO 09/19/21 Scheduled Atorvastatin Calcium (Atorvastatin Calcium), 20 MG PO QHS Ciprofloxacin Hcl (Cipro), 500 MG PO BID Metoprolol Tartrate (Metoprolol Tartrate), 25 MG PO BID Metronidazole (Metronidazole), 500 MG PO Q12HR Nystatin (Nyamyc), 1 NIECY TP BID Pantoprazole Sodium (Pantoprazole Sodium ), 40 MG PO DAILYAC Scheduled PRN Oxycodone/Apap 5-325 (Percocet 5-325 Mg Tablet ), 2 TAB PO PRN Q4HRS PRN for SEVERE PAIN Discontinued Medications Amoxicillin/Potassium Clav (Amox Tr-K Clv 875-125 Mg Tab), 1 TAB PO BID Justicifation of Admission Dx: Justifications for Admission: Justification of Admission Dx: SIMONE Kumar MD October 23, 2021 15:48
[2021-10-24] MEDS ORDERED: PANTOPRAZOLE 40 MG TABLET.DR. PO SCH (07:30)
== END 2021-10-23 14:50 | disposition home health service (06) | DRG 445 ==
LOC: ER 16:34 → 4 NORTH 19:23
PROVIDERS: ADMIT Internal Medicine; ATTEND Internal Medicine
DX: K80.20 Calculus of gallbladder without cholecystitis without obstruction (principal); K57.32 Diverticulitis of large intestine without perforation or abscess without bleeding; N39.0 Urinary tract infection, site not specified; Z86.16 Personal history of COVID-19; I25.10 Atherosclerotic heart disease of native coronary artery without angina pectoris; I70.0 Atherosclerosis of aorta; I73.9 Peripheral vascular disease, unspecified; Z89.511 Acquired absence of right leg below knee
CPT/HCPCS: 36415; 74177; 80048; 80053; 80307; 81001; 82962; 83690; 83735; 83880; 84484; 85007; 85025; 87086; 96361; 96365; 96375; C9113; J0692; J0696; J0744; J1200; J1650; J2270; J2405; J3010; J3490; J7030; Q9967; 99285-25; G0378